=== PATIENT | female | born 1955 | race Caucasian/White ===

== ENCOUNTER → 2017-12-16 09:51 | Outpatient (CLI) | payer MEDICARE, MEDICAID, SELFPAY ==
--- NOTE | 2017-12-16 09:53 | RAD_ITS ---
STUDY: X-RAY - RIGHT KNEE REASON FOR EXAM: Female, 62 years old. Knee pain. TECHNIQUE: 4 view(s) of the knee. COMPARISON: June 29, 2016 FINDINGS: There is generalized osteopenia. 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 There are multiple intra-articular osteochondral bodies, the largest of which measures approximately 2 cm in widest diameter and is located in a popliteal cyst posteriorly. There is ossification of the distal quadriceps tendon. RAD/Knee 4 or More Views IMPRESSION: Osteopenia with tricompartmental arthrosis and multiple intra-articular osteochondral bodies as described. Electronically Signed: Tomy Wilkinson MD at 10:32 EST , Service support ,
--- NOTE | 2017-12-16 09:53 | RAD_ITS ---
STUDY: X-RAY - LEFT KNEE REASON FOR EXAM: Female, 62 years old. Pain. TECHNIQUE: 4 view(s) of the knee. COMPARISON: None. FINDINGS: There is generalized osteopenia. There is moderate to severe arthrosis of the medial, lateral and patellofemoral compartments. There are multiple small intra-articular osteochondral bodies. The soft tissue structures are unremarkable. RAD/Knee 4 or More Views IMPRESSION: Moderate to severe tricompartmental arthrosis with multiple intra-articular osteochondral bodies. Electronically Signed: Tomy Wilkinson MD at 10:30 EST , Service support ,
== END ==
PROVIDERS: Family Provider Family Medicine; PCP Family Medicine; Visit Provider Orthopaedic Surgery
DX: M25.561 Pain in right knee (principal); M25.562 Pain in left knee
CPT/HCPCS: 73564

== ENCOUNTER 2018-10-21 19:35 | Emergency (ER) | payer MEDICARE, MEDICAID, SELFPAY ==
[2018-10-21 19:41] VITALS: BP 158/69; PULSE 65; RESP 16; TEMP 36.8; O2SAT 98; BMI 36.8
[2018-10-21 20:11] LABS: Absolute Lymphocyte Count 1.17 X10^3/ul (0.83-4.51); Absolute Neutrophil Count 4.5 X10^3/uL (2.0-7.7); Basophil# 0.02 X10^3/uL; Basophil% 0.3 % (0-1); Eosinophil# 0.05 X10^3/uL; Eosinophils% 0.7 % (0-5); Hemoglobin 10.8 g/dl (12.0-15.0); Lymphocyte # 1.17 X10^3/ul (4.0); Lymphocyte % 17.5 % (19-41); Mean Corp Hgb Conc 32.7 g/gl (32-36); Mean Corpuscular Volume 88.5 fL (81-99); Mean Platelet Vol. 8.6 fl (6.2-12.0); Monocyte# 0.94 X10^3/uL; Monocyte% 14.1 % (0-10); Neutrophil # 4.49 X10^3/uL (2.7-7.7); Neutrophil % 67.3 % (47-70); Platelet Count 281 K/mm3 (150-450); RBC Distribution Width CV 14.5 % (11.6-14.6); RBC Distribution Width SD 45.6 fl (35.1-43.9); Red Blood Count 3.73 M/mm3 (4.2-5.4); White Blood Count 6.7 K/mm3 (4.4-11.0)
[2018-10-21 20:13] LABS: POSITIVE COUNT NO; POSITIVE DIFFERENTIAL NO; POSITIVE MORPHOLOGY NO
[2018-10-21 20:28] LABS: Anion Gap 9 (5-15); BUN 15 mg/dL (7-18); Calcium,Total 8.6 mg/dL (8.5-10.1); Chloride 107 mmol/L (98-107); Creatinine, Serum 1.15 mg/dL (0.55-1.02); EST Glomerular Filtration Rate 51 mL/min (>60); Est Glom Filt Rate - Afr Amer 62 mL/min (>60); Estimated Creatinine Clearance 46.23 ml/min; Glucose 116 mg/dL (74-106); Potassium 3.9 mmol/L (3.5-5.1); Pregnancy, Serum, hCG Quali. NEGATIVE Negative (0-9 Nonpreg); Sodium Level 141 mmol/L (136-145); Thyroid Stim Hormone (TSH) 4.36 uIU/mL (0.358-3.74)
[2018-10-21 20:37] VITALS: RESP 16
[2018-10-21 20:56] LABS: Amphetamine Urine VISTA NEGATIVE (<1000 ng/mL); Barbiturate Urine VISTA NEGATIVE (< 200 ng/mL); Benzodiazepine Urine VISTA NEGATIVE (< 200 ng/mL); Cocaine Urine VISTA NEGATIVE (< 300 ng/mL); Ecstacy Urine VISTA NEGATIVE (< 500 ng/mL); Methadone Urine VISTA NEGATIVE (< 300 ng/mL); PCP Urine VISTA NEGATIVE (< 25 ng/mL); THC Urine VISTA NEGATIVE (< 50 ng/mL); Vista UDS pH Range 6
--- NOTE | 2018-10-21 20:58 | ED.RN ---
SAIMA FROM CRISIS CALLED. SHE IS ON THE WAY TO SEE PT.
[2018-10-21 21:00] VITALS: RESP 18
--- NOTE | 2018-10-21 21:14 | ED.VISSUMM ---
- ER Visit Summary Date of Service: 10/21/18 Chief Complaint: Suicidal ideation History of Present Illness: The patient is a 63 F who has suicidal ideation. She is felt this way for 2-3 weeks. When asked her why she is feeling suicidal she says not sure why. She plans to overdose on Tylenol as this is the only medication she has access to. She lives in assisted living in her medications are handled by a nurse. She has a history of suicidal ideation and tried overdose in December 2015. She has been medication compliant. She does see Dr. Ramirez at the [facility]. Physical Examination: Vital signs reviewed. HEENT exam unremarkable. Heart is regular rate and rhythm without murmurs. Lungs are clear to auscultation. Abdomen is soft and nontender. Extremities reveal no edema. Skin exam normal. Neurologic exam normal. Patient voices suicidal thoughts. Her insight and judgment are poor at this time. Test Results: Hemoglobin 10.8, hematocrit 33. Creatinine 1.15. TSH 4.36. Toxicology screen alcohol are normal Emergency Department Course and Treatment: Patient is been cooperative throughout her emergency department stay. Crisis will evaluate the patient and her disposition is pending Treatment Plan: [] Disposition: Pending Impression: Suicidal ideation This note was generated with [employer] dictation software. It may contain incorrect words, spelling, and punctuation that were not noted in review of the chart prior to signing ED Disposition - Plan for ED Patient: Chief Complaint: Suicidal Referrals: Alex Self MD [Primary Care Provider] -
--- NOTE | 2018-10-21 21:32 | ED.RN ---
SAIMA FROM CRISIS IS HERE.
[2018-10-21 22:00] VITALS: BP 172/81; PULSE 64; RESP 16; O2SAT 97
[2018-10-21] MEDS: Cyanocobalamin 500 MCG Tablet 100 MCG PO (22:09)
[2018-10-21] MEDS: lamoTRIgine 100 MG Tablet 200 MG PO (22:10)
[2018-10-21] MEDS: Sertraline 100 MG Tablet PO (22:10)
[2018-10-21] MEDS: oxyCODONE 5 MG Tablet PO (22:28)
[2018-10-21 23:00] VITALS: RESP 14
[2018-10-22] VITALS (9 sets, daily range): BP systolic 143–161; BP diastolic 80–85; PULSE 65–69; RESP 16–18; O2SAT 95–96
--- NOTE | 2018-10-22 06:00 | ED.RN ---
REPORT CALLED TO [facility]. HARRIETT AQUINO VERBALIZED UNDERSTANDING
[2018-10-22] MEDS: oxyCODONE 5 MG Tablet PO (06:15)
--- NOTE | 2018-10-22 06:38 | ED.RN ---
ATTEMPTED TO CALL REPORT TO [facility]. AFTER BEING CONNECTED TO ANOTHER LINE VIA INTAKE, PHONE RANG CONTINUOUSLY AND NO ONE EVER PICKED UP
--- NOTE | 2018-10-22 07:38 | ED.RN ---
REPORT CALLED TO MEAGAN AQUINO AT [facility].
== END 2018-10-22 08:07 ==
PROVIDERS: Emergency Provider Emergency Medicine; Family Provider Family Medicine; PCP Family Medicine
DX: R45.851 Suicidal ideations (principal); J44.9 Chronic obstructive pulmonary disease, unspecified; F31.9 Bipolar disorder, unspecified; F25.9 Schizoaffective disorder, unspecified; I10 Essential (primary) hypertension; E78.5 Hyperlipidemia, unspecified; Z79.2 Long term (current) use of antibiotics; Z79.51 Long term (current) use of inhaled steroids; Z79.891 Long term (current) use of opiate analgesic; Z79.899 Other long term (current) drug therapy
CPT/HCPCS: 80048; 80307; 80320; 84443; 84703; 85025; 99285; G0480

== ENCOUNTER 2018-12-02 16:21 | Emergency (ER) | payer MEDICARE, MEDICAID, SELFPAY ==
[2018-12-01 08:07] VITALS: BMI 36.0
[2018-12-02 16:22] VITALS: BP 155/81; PULSE 76; RESP 18; TEMP 36.6; O2SAT 98; BMI 36.0
--- NOTE | 2018-12-02 16:34 | CT_ITS ---
STUDY: CT BRAIN WITHOUT CONTRAST REASON FOR EXAM: Female, 63 years old. Headaches RADIATION DOSAGE (If Supplied By Facility): CTDIvol = ( 44.99 ) mGy, DLP = ( 762.36 ) mGycm TECHNIQUE: Transaxial CT imaging of the brain was performed without administration of intravenous contrast material. Individualized dose optimization techniques were used for this CT. COMPARISON: February 05, 2009 FINDINGS: Normal soft tissue structures. Normal calvarium. Mild atrophy and periventricular white matter ischemic changes.. Normal basal ganglia and thalami. Normal brainstem. Normal cerebellum. Mild partial empty sella deformity of uncertain significance. There is no intracranial hemorrhage. There are no findings of an acute ischemic infarction. Normal visualized paranasal sinuses. CT/Brain/Head without Contrast IMPRESSION: Mild atrophy and periventricular white matter ischemic changes. No evidence for obstructive hydrocephalus mass or acute bleed Electronically Signed: Eugenio Abarca MD at 16:57 EST , Service support ,
--- NOTE | 2018-12-02 17:30 | CM.ED ---
Social Work Assessment Reason for Consult: Mental Health/Medication Adjustments Informant: guest relations executiveKajal AQUINO Information obtained from: Pt who is alert and oriented upon this senior mortgage underwriter's entry into room and sitting up in bed in no apparent distress. Pt is able to participate in assessment. Living Arrangements: Pt reports to live in [facility] and has for the past 9 years. Supports: Pt identifies her friends, Patty (MICHELLE) and Gloria, as her primary supports. Requests to contact Patyt upon completion of assessment. Stressors: Pt reports that her brother in January of 2018. Emotional support provided. Pt states she was not as close with him as she would have liked to have been as they both grew up in foster care and he lived in [place]. Mental Health Hx: Pt reports hx of bipolar, major depression and anxiety. She is established with Dr. Ramirez at the counseling center and see a counselor 1x/week at [facility]. States that she was in [facility] in October and they took her off of her Geodon and increased he Zoloft dosing. States that Dr. Ramirez told her if this did not work they would replace the Geodon. Discussed with the pt that staff was trying to contact the psychiatrist as no one here can adjust her psychiatric medications. She last saw the psychiatrist on Tuesday 11/28 and her next appointment is on Wednesday 12/06. States, I can not continue like this until then. Again explain that psychiatric medications would need to be adjusted by her psychiatrist. Inquire if she is having thoughts of killing herself. Pt pauses for an extended time and states, if you don't do something. Request for her to elaborate how she would plan to complete that task and the pt states, I have limited resources, I could not. Substance Abuse Hx: Pt denies substance abuse. ASSESSMENT: At this time pt does not present with suicide risk. Pt expresses frustration with change in medication and states thatsince Wednesday her head feels like it could explode. Denies that it is a headache. States that she was taken off of Celexa on Wednesday and the psychiatrist lowered her Zoloft to 200 mg and this is when the explosion feeling began. Nursing spoke with crisis who states that the pt does not meet criteria for placement. This social work manager agrees and anticipates discharge back to [facility]. Intervention(s): Suicide risk assessment completed and pt does not meet criteria for placement. Does not have a plan or means to complete this act and can return to [facility] until her appointment with Dr. Ramirez on Wednesday 12/06. PLAN: Await return phone call from [facility] to see if meds can be adjusted prior to 12/06 appointment. Anticipate return to [facility]. Anastasiya Hernandez, MARIAN, PLASTIC FINISHER
[2018-12-02 18:23] VITALS: PULSE 78; RESP 16; O2SAT 98
--- NOTE | 2018-12-02 18:33 | ED.VISSUMM ---
- ER Visit Summary Date of Service: 12/02/18 Chief Complaint: Headache History of Present Illness: The patient is a 63 F patient sent from [facility] for mental health evaluation. Patient reports over the last 4 days feel increased pressure in her head states feels like it is going to explode and back fire.. Reports having a fall on the of last month along with the . Reports in the seventh was sent for CT scan due to her injury. Denies any visual changes, nausea or vomiting. No neck or back pain. History of bipolar and fibromyalgia and cerebral palsy. Reports and records reviewed was admitted to [facility] this past October for suicidal ideations. Medications were adjusted. States she was being transitioned from Zoloft to Celexa however did not tolerate this. On the of last month, transition back to Zoloft currently taking 200 mg daily. This was 4 days ago, she reports since the Zoloft regimen was having head symptoms. She denies any suicidal homicidal regions. Records and reports from facility reports there concerns for increased hever. They reported that there did not have capabilities of managing the patient. Physical Examination: General: Alert and oriented ?3, no acute distress HEENT: Normocephalic, atraumatic. Moist mucosa membranes Neck: supple, nontender. No meningismus Cardiovascular: Regular rate and rhythm, no murmurs Respiratory: Normal breath sounds, symmetric, no distress Abdomen: Soft, nontender, nondistended Extremities: Nontender, no edema, pulses intact ?4. Walking splints on lower extremities bilaterally. Neuro: no focal neurological deficits. Cranial nerves II through XII intact. Psych: No suicidal or homicidal ideation. Cooperative. Test Results: CT head: No acute process Emergency Department Course and Treatment: Patient not suicidal.no focal neurological deficits vital signs stable. Main complaints head pressure since medications were changed. Head CT negative. Reported concerns that facility could not take care of the patient social work was involved, reports they should be able to take care of the patient. We had mental health crisis see the patient also clearing the patient psychologically. She is medically cleared. She requested ibuprofen which was given to her. She has an appointment with Dr Ramirez on Wednesday for evaluation of her medicines. Treatment Plan: [] Disposition: Discharge Impression: Cephalgia This note was generated with [employer] software. It may contain incorrect words, spelling, and punctuation that were not noted in review of the chart prior to signing ED Disposition - Plan for ED Patient: Disposition: Home or Assisted Living Diagnosis: Cephalgia Instructions: ED Cephalgia Unspecified Referrals: Alex Self MD [Primary Care Provider] - Milagro Ramirez MD [NON-STAFF] - Keep Tawny appointment
--- NOTE | 2018-12-02 18:36 | ED.DCSUM_ITS ---
- ER Visit Summary Date of Service: 12/02/18 Chief Complaint: Headache History of Present Illness: The patient is a 63 F patient sent from [facility] for mental health evaluation. Patient reports over the last 4 days feel increased pressure in her head states feels like it is going to explode and back fire.. Reports having a fall on the of last month along with the . Reports in the seventh was sent for CT scan due to her injury. Denies any visual changes, nausea or vomiting. No neck or back pain. History of bipolar and fibromyalgia and cerebral palsy. Reports and records reviewed was admitted to [facility] this past October for suicidal ideations. Medications were adjusted. States she was being transitioned from Zoloft to Celexa however did not tolerate this. On the of last month, transition back to Zoloft currently taking 200 mg daily. This was 4 days ago, she reports since the Zoloft regimen was having head symptoms. She denies any suicidal homicidal regions. Records and reports from facility reports there concerns for increased hever. They reported that there did not have capabilities of managing the patient. Physical Examination: General: Alert and oriented ?3, no acute distress HEENT: Normocephalic, atraumatic. Moist mucosa membranes Neck: supple, nontender. No meningismus Cardiovascular: Regular rate and rhythm, no murmurs Respiratory: Normal breath sounds, symmetric, no distress Abdomen: Soft, nontender, nondistended Extremities: Nontender, no edema, pulses intact ?4. Walking splints on lower extremities bilaterally. Neuro: no focal neurological deficits. Cranial nerves II through XII intact. Psych: No suicidal or homicidal ideation. Cooperative. Test Results: CT head: No acute process Emergency Department Course and Treatment: Patient not suicidal.no focal neurological deficits vital signs stable. Main complaints head pressure since medications were changed. Head CT negative. Reported concerns that facility could not take care of the patient social work was involved, reports they should be able to take care of the patient. We had mental health crisis see the patient also clearing the patient psychologically. She is medically cleared. She requested ibuprofen which was given to her. She has an appointment with Dr Ramirez on Wednesday for evaluation of her medicines. Treatment Plan: [] Disposition: Discharge Impression: Cephalgia This note was generated with [employer] software. It may contain incorrect words, spelling, and punctuation that were not noted in review of the chart prior to signing ED Disposition - Plan for ED Patient: Disposition: Home or Assisted Living Diagnosis: Cephalgia Instructions: ED Cephalgia Unspecified Referrals: Alex Self MD [Primary Care Provider] - Milagro Ramirez MD [NON-STAFF] - Keep Tawny appointment
--- NOTE | 2018-12-02 19:07 | ED.RN ---
ELIAN FROM [facility] IS HERE TO SEE THIS PT.
[2018-12-02] MEDS: Ibuprofen 600 MG Tablet PO (19:53)
--- NOTE | 2018-12-02 19:53 | ED.RN ---
ATTEMPTED TO CALL REPORT TO RAYMUNDO STERN. NO ANSWER. [phone]
[2018-12-02 19:54] VITALS: BP 137/65; PULSE 76; RESP 18; O2SAT 98
--- NOTE | 2018-12-02 20:02 | ED.RN ---
REPORT CALLED TO RAYMUNDO STERN
== END 2018-12-02 20:02 | disposition home or self-care (01) ==
PROVIDERS: Emergency Provider Emergency Medicine; Family Provider Family Medicine; PCP Family Medicine
DX: R51 Headache (principal); F31.9 Bipolar disorder, unspecified; G80.9 Cerebral palsy, unspecified; M79.7 Fibromyalgia; I10 Essential (primary) hypertension; E03.9 Hypothyroidism, unspecified; Z79.82 Long term (current) use of aspirin; Z79.899 Other long term (current) drug therapy
CPT/HCPCS: 70450; 99284; J7030

== ENCOUNTER 2019-06-27 09:54 | Day surgery (SDC) | payer MEDICARE, MEDICAID, SELFPAY ==
[2019-06-19 08:45] VITALS: BMI 36.0
--- NOTE | 2019-06-23 10:46 | EKG12_ITS ---
Test Reason : PRE-OP Blood Pressure : / mmHG Vent. Rate : 063 BPM Atrial Rate : 063 BPM P-R Int : 134 ms QRS Dur : 078 ms QT Int : 396 ms P-R-T Axes : 013 048 052 degrees QTc Int : 405 ms Normal sinus rhythm Normal ECG Confirmed by YASMANY QUESADA, IRIS ([id number]), dictionary editor ALBER MIRAMONTES ([id number]) on 06/26/2019 12:00:45 PM Referred By: Justice Montelongo Confirmed By:IRIS JADE MD
[2019-06-23 11:03] LABS: Hematocrit 39.8 % (37-47); Hemoglobin 13.5 g/dL (12.0-15.0); Mean Corp Hgb Conc 33.9 g/dL (32-36); Mean Corpuscular Hgb 32.6 pg (27.0-32.0); Mean Corpuscular Volume 96.1 fL (81-99); Mean Platelet Vol. 9.3 fl (6.2-12.0); Platelet Count 242 K/mm3 (150-450); RBC Distribution Width CV 11.9 % (11.6-14.6); RBC Distribution Width SD 41.9 fl (35.1-43.9); Red Blood Count 4.14 M/mm3 (4.2-5.4); White Blood Count 6.7 K/mm3 (4.4-11.0)
[2019-06-23 11:10] LABS: International Normalized Ratio 1.1; Partial Thromboplast Time 31.4 Seconds (24.1-36.2); Prothrombin Time (Protime)PT. 13.6 SECONDS (11.7-14.9)
[2019-06-23 11:47] LABS: AST(SGOT) 19 U/L (15-37); Alanine Aminotransfer ALT/SGPT 29 U/L (13-56); Albumin, Serum 3.1 g/dL (3.2-5.0); Alkaline Phosphatase 149 U/L (45-117); Anion Gap 5 (5-15); BUN 9 mg/dL (7-18); BUN/Creat Ratio 8.8 RATIO (10-20); Bilirubin, Direct 0.13 mg/dL (0.00-0.30); Calcium,Total 8.9 mg/dL (8.5-10.1); Chloride 107 mmol/L (98-107); Creatinine, Serum 1.02 mg/dL (0.55-1.02); EST Glomerular Filtration Rate 58 mL/min (>60); Est Glom Filt Rate - Afr Amer 71 mL/min (>60); Globulin 3.2 g/dL (2.2-4.2); Glucose 97 mg/dL (74-106); Potassium 3.9 mmol/L (3.5-5.1); Protein, Total 6.3 g/dL (6.4-8.2); Sodium Level 140 mmol/L (136-145); Thyroid Stim Hormone (TSH) 5.32 uIU/mL (0.358-3.74)
[2019-06-27] VITALS (9 sets, daily range): BP systolic 118–180; BP diastolic 68–117; PULSE 71–96; RESP 16–24; TEMP 36.1–37; O2SAT 96–100; BMI 29.6
[2019-06-27] MEDS: Lactated Ringers 1,000 ML 75 ML IV (10:42)
--- NOTE | 2019-06-27 10:54 | PCM.HP.BLA ---
History and Physical Date of Admission: 06/27/19 Intake Vital Signs 06/19/19 Body Mass Index (BMI) 36.0 Intake Visit Reasons: Bilat Shoulders Chief Complaint: Right knee pain Allergies lithium Allergy (Mild, Verified 10/21/18 19:49) Vomiting aspartame Allergy (Verified 10/21/18 19:49) Itching ciclesonide [From Alvesco] Allergy (Verified 10/21/18 19:49) Shortness of breath diphenhydramine HCl [From Benadryl] Allergy (Verified 10/21/18 19:49) Rash imipramine Allergy (Verified 10/21/18 19:49) Other levofloxacin [From Levaquin] Allergy (Verified 10/21/18 19:49) Itching onabotulinumtoxinA [From Botox] Allergy (Verified 10/21/18 19:49) Itching Penicillins Allergy (Verified 10/21/18 19:49) Rash topiramate [From Topamax] Allergy (Verified 10/21/18 19:49) Other Medications Esomeprazole Mag Trihydrate [Nexium] 40 mg PO DAILY 01/03/16 [History Confirmed 06/19/19] Fluticasone 0.05% [Flonase Nasal [place]] 2 spray NASAL DAILY 01/03/16 [History Confirmed 06/19/19] Tizanidine HCl [Zanaflex] 4 mg PO BID 01/03/16 [History Confirmed 06/19/19] aspirin 81 mg chewable tablet 81 mg PO DAILY 12/16/17 [History Confirmed 06/19/19] fluticasone furoate 200 mcg-vilanterol 25 mcg/dose inhalation powder 1 inh INHALATION DAILY 12/16/17 [History Confirmed 06/19/19] naproxen 500 mg tablet 500 mg PO BID 12/16/17 [History Confirmed 06/19/19] Levothyroxine Sodium [Synthroid] 200 mcg PO DAILY 10/21/18 [History Confirmed 06/19/19] Lisinopril 5 mg PO DAILY 10/21/18 [History Confirmed 06/19/19] Metamucil 2 cap PO BID 10/21/18 [History Confirmed 06/19/19] Cyanocobalamin (Vitamin B-12) [Vitamin B-12] 100 mg PO QHS 12/02/18 [History Confirmed 06/19/19] Multivitamin [One Daily Multivitamin] 1 ea PO DAILY 12/02/18 [History Confirmed 06/19/19] buprenorphine 20 mcg/hour weekly transdermal patch 1 patch TRANSDERMAL QWEEK 06/19/19 [History Confirmed 06/19/19] tramadol 50 mg tablet 50 mg PO BID PRN 06/19/19 [History Confirmed 06/19/19] PFSH Medical History (Updated 12/03/18 @ 00:00 by Linnea Becker) Bipolar 1 disorder (Chronic) Cerebral palsy (Chronic) Fibromyalgia (Chronic) HBP (high blood pressure) (Chronic) Hypothyroid (Chronic) Social History (Updated 06/19/19 @ 09:41 by Justice Montelongo DO) Smoking Status: Never smoker HPI Bilat Shoulders: Details: Parts of this documentation were recorded by a scribe, this documentation accurately reflects the service provided and the decisions made by Justice ken DO 06/19/19 0751. STEVE FAGAN is a 64 year old F here today for BL shoulder pain. Patient had BL subacromial injections in 03/2019 and states these injections where effective for about 2 weeks. Denies numbness, tingling or other associated symptoms. Patient has generalized BL shoulders and states the right is worse than the left. Is still in the process of moving to [place]. Denies any PT for the shoulders. Has pain with any ROM and ADLs. Does not recall any weakness. ROS Const Reports system reviewed and no additional complaints, except as docu Eyes Reports system reviewed and no additional complaints, except as docu ENT Reports system reviewed and no additional complaints, except as docu Card Reports system reviewed and no additional complaints, except as docu Resp Reports system reviewed and no additional complaints, except as docu GI Reports system reviewed and no additional complaints, except as docu Musc Reports system reviewed and no additional complaints, except as docu, Reports as per HPI Skin/Breast Reports system reviewed and no additional complaints, except as docu Neuro Yes system reviewed and no additional complaints, except as docu Psych Reports system reviewed and no additional complaints, except as docu Endo Reports system reviewed and no additional complaints, except as docu Kendrick/Lymph Reports system reviewed and no additional complaints, except as docu Aller/Immun Reports system reviewed and no additional complaints, except as docu Ortho Exam Right Shoulder Skin/Wound: No ecchymosis, No erythema, No swelling Testing: Positive Hawkin's, TTP Biceps and AROM-Forward Elevation 0-180; negative TTP AC Joint SHOULDER: 5/5 strength ]pain with resisted abduction Left Shoulder Testing: Yes Hawkin's, Yes TTP Biceps, No TTP AC Joint, Yes AROM-Forward Elevation 0-180 SHOULDER: 5/5 pain with abduction Assessment & Plan Problems 1. Biceps tendonitis of both shoulders M75.21; M75.22 2. Incomplete tear of right rotator cuff, unspecified whether traumatic M75.111 3. Impingement syndrome of right shoulder M75.41 Plan Educated that her biceps tear has more than likely worsened along with possibility of increased rotator cuff tearing. Educated that her options would be a right shoulder arthroscopic subacromial decompression, eval of RTC with possible repair and biceps tenotomy. Reviewed the pre-operative plans with the patient. Risks and benefits of the procedure were fully explained, including but not limited to infection, neurovascular injury, continued pain, arthritis, stiffness, need for further surgery, re-injury, DVT, PE, general risks of anesthesia, and loss of limb or life. The patient understands all the risks. Educated that this may be 3 months recovery period. Patient is supposed to be moving to [place] and wishes to think about surgery. Patient signed consent this day but wishes to think about surgical option further. Follow up 2 weeks post op if she chooses to have surgery or sooner if pain, swelling, numbness or associated symptoms, or concerns develop. All questions answered. Patient in agreement of plan. Coding Level of Care Code Off vis,new,level 3 Diagnoses Biceps tendonitis of both shoulders M75.21; M75.22 Incomplete tear of right rotator cuff, unspecified whether traumatic M75.111 ??Rotator cuff tear extent: incomplete ??Rotator cuff tear trauma status: unspecified whether traumatic Impingement syndrome of right shoulder M75.41 I have re-examined the patient. There are no clinical changes since date of exam
[2019-06-27] MEDS: Cefazolin 2 GM in 0.9% Normal Saline 100 ML IV (12:51)
[2019-06-27] MEDS: Epinephrine (1 mg/ml) 1 MG/ML VIAL (13:50)
[2019-06-27] MEDS: Bupiv/Epi 0.5% Mpf 30 ML Vial (14:00)
[2019-06-27] MEDS: Bupivacaine Mpf 0.5% 30 ML VIAL (14:10)
[2019-06-27] MEDS: Morphine 4 MG/ML Syringe (14:10)
[2019-06-27] MEDS: MethylPREDNISolone Acetate 80 MG/ML Vial (14:10)
--- NOTE | 2019-06-27 14:19 | PCM.DC.ORTHO ---
Discharge Diet: No Restrictions Call your doctor if you observe: Fever of 101 or Higher, Shortness of breath, Chest pain Additional Instructions: Leave the dressing on and intact for 48 hours. Then may remove and shower with warm water and antibacterial soap. But do not submerge in tub for 3 weeks. ice shoulder 15 min on and 15 mins off next 72 hrs. May remove sling for elbow range and shoulder range of motion and pendulum exercises may preform active range of motion of shoulder when pain allows. discontinue sling over the course to the week as pain allow. DC completely by 1 week. Do not lift push or pull greater then 5 lbs with operative extremity. Encourage finger and wrist range of motion. If any concerns call Dr. Montelongo's office. Allergies/Adverse Reactions: Allergies lithium Allergy (Mild, Verified 06/27/19 10:11) Vomiting aspartame Allergy (Verified 06/27/19 10:11) Itching ciclesonide [From Alvesco] Allergy (Verified 06/27/19 10:11) Shortness of breath diphenhydramine HCl [From Benadryl] Allergy (Verified 06/27/19 10:11) Rash imipramine Allergy (Verified 06/27/19 10:11) Other levofloxacin [From Levaquin] Allergy (Verified 06/27/19 10:11) Itching onabotulinumtoxinA [From Botox] Allergy (Verified 06/27/19 10:11) Itching Penicillins Allergy (Verified 06/27/19 10:11) Rash topiramate [From Topamax] Allergy (Verified 06/27/19 10:11) Other sertraline [From Zoloft] Adverse Reaction (Verified 06/27/19 10:11) serotoin syndrome Medications to take at Discharge Esomeprazole Mag Trihydrate [Nexium] 40 mg PO DAILY 01/03/16 Fluticasone 0.05% [Flonase Nasal [place]] 2 spray NASAL DAILY 01/03/16 Tizanidine HCl [Zanaflex] 4 mg PO BID 01/03/16 aspirin 81 mg chewable tablet 81 mg PO DAILY 12/16/17 naproxen 500 mg tablet 500 mg PO BID 12/16/17 Levothyroxine Sodium [Synthroid] 100 mcg PO DAILY 10/21/18 Lisinopril 5 mg PO DAILY 10/21/18 Metamucil 2 cap PO BID 10/21/18 Cyanocobalamin (Vitamin B-12) [Vitamin B-12] 100 mg PO QHS 12/02/18 Multivitamin [One Daily Multivitamin] 1 ea PO DAILY 12/02/18 buprenorphine 20 mcg/hour weekly transdermal patch 1 patch TRANSDERMAL QWEEK 06/19/19 tramadol 50 mg tablet 100 mg PO TID PRN 06/19/19 Albuterol IH (ProAir) [Proair Hfa (SP)Vent Pts] 1 - 2 puff INHALATION Q6H PRN PRN 06/22/19 Lorazepam [Ativan] 0.5 mg PO TID PRN 06/22/19 Polyethylene Glycol 3350 [Miralax] 17 gm PO DAILY 06/22/19 Hydrocodone Bitart/Apap 5-325 [[place] 5MG-325MG] 1 tablet PO Q6H PRN PRN 5 Days #28 tablet 06/27/19 The following prescriptions were given: Hydrocodone Bitart/Apap 5-325 [[place] 5MG-325MG] 1 tablet PO Q6H PRN PRN 5 Days #28 tablet PRN Reason: Pain Transmission Status: Sent to [facility] Orders to be completed after discharge: 12 Lead EKG [[facility]] Time Frame: 06/22/19, Facility: [facility], Location: Cardiovascular Services Basic Metabolic Profile (BMP) Time Frame: 06/22/19, Facility: [facility], Location: Laboratory CBC-Complete Blood Cnt No Diff Time Frame: 06/22/19, Facility: [facility], Location: Laboratory Liver Profile Time Frame: 06/22/19, Facility: [facility], Location: Laboratory Partial Thromboplast Time Time Frame: 06/22/19, Facility: [facility], Location: Laboratory Prothrombin Time w/INR Time Frame: 06/22/19, Facility: [facility], Location: Laboratory Thyroid Stim Hormone (TSH) Time Frame: 06/22/19, Facility: [facility], Location: Laboratory Primary Care Physician: Alex Self MD [Primary Care Provider] - Test Results: Test results from this visit will be discussed in further detail at your follow-up appointment, if applicable.
--- NOTE | 2019-06-27 14:23 | OP.PCM_ITS ---
Report of Operation Date of Procedure: 06/27/19 Description of Surgical Findings:: Preoperative diagnosis: Right shoulder impingement, biceps tendonopathy Postoperative diagnosis: Right shoulder impingement , biceps tendinopathy, degenerative labral tearing, partial tearing subscapularis and supraspinatus. Procedure: Arthroscopic labral debridement biceps tenotomy rotator cuff debridement subacromial decompression acromioplasty Anesthesia: General with interscalane block; EBL: 10 cc Complications: none Indication for procedure: 64-year-old female continued right shoulder pain despite conservative treatment with exam consistent with impingement and biceps tendinopathy and has severe thoracic kyphosis likely additional component of postural impingement to have an MRI in 2017 which was reviewed showing a partial-thickness tear spinatus. patient did wish to proceed with an arthroscopic subacromial decompression and surgery as indicated. risks benefits and alternatives of the procedure were reviewed including risk of bleeding infection nerve artery tissue damage need for further surgery continued pain postoperative stiffness and need for postoperative physical therapy and continued pain. Procedure : Patient was met in the preoperative holding area the operative extremity was identified by both the patient and the physician and was marked. Patient was met by anesthesia and brought back to the operating room on a wheeled cart. She was transferred to the operating table in the supine posi tion. Anesthesia was started. Patient was then positioned in the beachchair configuration. Bony prominences were well-padded. The patient was prepped and draped in the usual sterile fashion. A timeout was called to ensure the proper patient procedure and extremity were being contemplated. Anatomic landmarks were palpated and marked with a marking pen. A 0.25% Marcaine with epinephrine was injected into the planned portal sites. An 11 blade scalpel was used to make a stab incision in the posterior lateral portal. Arthroscope was inserted into the glenohumeral space with ease. Inflow and outflow tubes were attached and arthroscopic visualization began. An anterior portal was established with an 18-gauge spinal needle. Immediately there was noted to be degenerative labral tearing from the 10:00 to 3 o'clock position there was noted to be lipstick lesion of the biceps the use of an ArthroCare biceps tenotomy was performed and a shaver was used to debride the labral tissue the rotator cuff was evaluated from the undersurface there was small articular sided tearing of the anterior leading edge of the supraspinatus which was debrided as well as the superior border of the subscapularis which was debrided however no full- thickness tear was noted of either and the cuff was evaluated with probe it was not felt that 50% of the cuff was involved. The arthroscope was then reposi tioned into the subacromial space there was significant bursal thickening of acromial decompression of bursal tissue as well as acromioplasty were performed there is large anterior acromial spurring which was removed bursal side of the cuff was evaluated and there was no full-thickness tear seen or palpated with probe probe the wound was thoroughly irrigated through the scope followed by a subacromial injection with 40 mg Depo-Medrol 4 mg of morphine and 8 cc of 0.5% Marcaine plain. Suture portals were closed with 3-0 nylon arthroscopic stitches followed by Xeroform 4 x 4 ABD and a Ioban dressing. A regular sling was placed. Anesthesia was reversed and patient tolerated the procedure well was and was transferred to the PACU all counts were correct patient will follow-up in the office in 2 weeks patient may begin active range of motion immediately
== END 2019-06-27 17:04 | disposition home or self-care (01) ==
LOC: SDC 09:55 → AC 09:55
PROVIDERS: Family Provider Family Medicine; PCP Family Medicine; Referring Provider Orthopaedic Surgery; Visit Provider Orthopaedic Surgery
PROC: (CPT 29827; principal; 2019-06-27 11:40)
DX: M75.41 Impingement syndrome of right shoulder (principal); M75.21 Bicipital tendinitis, right shoulder; M75.111 Incomplete rotator cuff tear or rupture of right shoulder, not specified as traumatic; S43.491A Other sprain of right shoulder joint, initial encounter; F31.9 Bipolar disorder, unspecified; M79.7 Fibromyalgia; I10 Essential (primary) hypertension; E03.9 Hypothyroidism, unspecified; G80.9 Cerebral palsy, unspecified; K21.9 Gastro-esophageal reflux disease without esophagitis; E78.00 Pure hypercholesterolemia, unspecified; F41.9 Anxiety disorder, unspecified; J45.909 Unspecified asthma, uncomplicated; E66.01 Morbid (severe) obesity due to excess calories; Z68.36 Body mass index [BMI] 36.0-36.9, adult; Z86.73 Personal history of transient ischemic attack (TIA), and cerebral infarction without residual deficits; Z86.2 Personal history of diseases of the blood and blood-forming organs and certain disorders involving the immune mechanism; Z79.82 Long term (current) use of aspirin; Z79.899 Other long term (current) drug therapy; Z79.51 Long term (current) use of inhaled steroids; Z79.891 Long term (current) use of opiate analgesic; X58.XXXA Exposure to other specified factors, initial encounter; Y93.89 Activity, other specified; Y92.89 Other specified places as the place of occurrence of the external cause; Y99.8 Other external cause status
CPT/HCPCS: 01630; 29822; 29826; 29828; 80048; 80076; 84443; 85027; 85610; 85730; 93005; J7120; J2405

== ENCOUNTER → 2019-07-10 | Outpatient (CLI) | payer MEDICARE, MEDICAID, SELFPAY ==
[2019-07-10 10:06] VITALS: BMI 29.6
--- NOTE | 2019-07-10 10:22 | RAD_ITS ---
HISTORY: SHOULDER PAIN Exam:Left Shoulder COMPARISON: None FINDINGS: # of images incl. paperwork: 4 XR Shoulder Min 2 Views: The humeral head is well-positioned within the glenoid fossa. No fracture or subluxation. The acromioclavicular joint is normal. The adjacent chest is unremarkable. RAD/Shoulder min 2 Views IMPRESSION: Normal left shoulder. at 0606 Reported and signed by: Tripp Card MD Electronically Signed: Tripp Card MD at 6:05 EDT Tel , Service support ,
== END | disposition home or self-care (01) ==
LOC: HPRAD 10:21
PROVIDERS: Family Provider Family Medicine; PCP Family Medicine; Referring Provider Orthopaedic Surgery; Visit Provider Orthopaedic Surgery
DX: M25.512 Pain in left shoulder (principal)
CPT/HCPCS: 73030

== ENCOUNTER → 2020-04-01 | Outpatient (CLI) | payer MEDICARE, MEDICAID, SELFPAY ==
[2019-08-02 07:58] VITALS: BMI 29.6
--- NOTE | 2020-04-01 14:18 | RAD_ITS ---
STUDY: X-RAY - RIGHT KNEE REASON FOR EXAM: Female, 65 years old. CHRONIC PAIN TECHNIQUE: 4 view(s) of the knee. COMPARISON: None. FINDINGS: There is demineralization of the visualized distal femur. There is demineralization of the tibia and fibula. Normal proximal tibiofibular articulation. There is severe degenerative arthrosis of the medial femorotibial compartment with severe joint space narrowing. There is severe degenerative arthrosis of the lateral femorotibial compartment with severe joint space narrowing. There is severe degenerative arthrosis of the patellofemoral articulation. Degenerative spurs noted in the distal femur, proximal tibia and patella The soft tissue structures are unremarkable. RAD/Knee 4 or More Views IMPRESSION: Degenerative arthrosis. Electronically Signed: Francisco Thompson MD at 15:20 EDT , Service support ,
--- NOTE | 2020-04-01 14:18 | RAD_ITS ---
STUDY: X-RAY - LEFT KNEE REASON FOR EXAM: Female, 65 years old. CHRONIC PAIN TECHNIQUE: 4 view(s) of the knee. COMPARISON: None. FINDINGS: There is demineralization of the visualized distal femur. There is demineralization of the tibia and fibula. Normal proximal tibiofibular articulation. There is severe degenerative arthrosis of the medial femorotibial compartment with severe joint space narrowing. There is severe degenerative arthrosis of the lateral femorotibial compartment with severe joint space narrowing. There is severe degenerative arthrosis of the patellofemoral articulation. Degenerative spurs noted in the distal femur, proximal tibia, and posterior patella The soft tissue structures are unremarkable. RAD/Knee 4 or More Views IMPRESSION: Degenerative arthrosis. Electronically Signed: Francisco Thompson MD at 15:17 EDT , Service support ,
== END | disposition home or self-care (01) ==
LOC: HPRAD 14:18
PROVIDERS: PCP Family Medicine; Referring Provider Orthopaedic Surgery; Visit Provider Orthopaedic Surgery
DX: M25.561 Pain in right knee (principal); M25.562 Pain in left knee
CPT/HCPCS: 73564

== ENCOUNTER → 2020-04-11 | Outpatient (CLI) | payer MEDICARE, MEDICAID, SELFPAY ==
[2020-04-01 14:49] VITALS: BMI 29.6
--- NOTE | 2020-04-11 08:08 | CT_ITS ---
STUDY: CT SCAN LOWER EXTREMITY LEFT REASON FOR EXAM: Female, 65 years old. KEVON LEFT KNEE RADIATION DOSAGE (If Supplied By Facility): CTDIvol = ( 20.10 ) mGy, DLP = ( 1195.63 ) mGycm. Individualized dose optimization techniques were used for this CT.? TECHNIQUE: Multiple axial tomographic images of the left hip joint, knee joint and ankle joint were obtained. Coronal and sagittal reconstruction was obtained as well. COMPARISON: None. FINDINGS: There are degenerative changes of the left sacroiliac joint. Mild degree of joint space narrowing of the left hip joint. Moderate degree of the joint space narrowing involving the medial and lateral compartments of the knee joint as well as the patellofemoral joint. Degenerative spurring is seen along the medial femoral condyle as well as the lateral femoral condyle and lateral tibial plateau. Large degenerative spur is seen along the anterior superior aspect of the tibial plateau as well as the anterior aspect of the distal femur and patella. There is evidence of a chondroid calcification or new bone formation within the posterior popliteal space suggestive of osteochondromatosis. Vascular calcification. The ankle joint is unremarkable. CT/Extremity Lower without Contra IMPRESSION: Degenerative changes involving the knee joint as described. Electronically Signed: Guerrero Hooper, at 9:14 EDT , Service support ,
== END | disposition home or self-care (01) ==
LOC: CT 08:08
PROVIDERS: PCP Family Medicine; Referring Provider Orthopaedic Surgery; Visit Provider Orthopaedic Surgery
DX: M17.12 Unilateral primary osteoarthritis, left knee (principal)
CPT/HCPCS: 73700

== ENCOUNTER 2020-04-30 14:54 | Observation (INO) | payer MEDICARE, MEDICAID, SELFPAY ==
[2020-04-01 14:49] VITALS: BMI 29.6
[2020-04-19 09:23] VITALS: BMI 29.6
--- NOTE | 2020-04-19 10:51 | EKG12_ITS ---
Test Reason : PRE OP Blood Pressure : / mmHG Vent. Rate : 062 BPM Atrial Rate : 062 BPM P-R Int : 156 ms QRS Dur : 070 ms QT Int : 402 ms P-R-T Axes : 023 043 044 degrees QTc Int : 408 ms Normal sinus rhythm Normal ECG Confirmed by ALONSO QUESADA, JOVANNY ([id number]), supervising editor news reel ALBER MIRAMONTES ([id number]) on 04/22/2020 9:47:19 AM Referred By: Justice Montelongo Confirmed By:SASCHA GUPTA MD
[2020-04-19 11:17] LABS: Absolute Lymphocyte Count 1.46 X10^3/uL (0.83-4.51); Absolute Neutrophil Count 2.1 X10^3/uL (2.0-7.7); Basophil# 0.03 X10^3/uL; Basophil% 0.7 % (0-1); Eosinophil# 0.21 X10^3/uL; Eosinophils% 4.9 % (0-5); Hematocrit 36.6 % (37-47); Hemoglobin 12.1 g/dL (12.0-15.0); Lymphocyte # 1.46 X10^3/ul (4.0); Lymphocyte % 33.9 % (19-41); Mean Corp Hgb Conc 33.1 g/dL (32-36); Mean Corpuscular Hgb 29.5 pg (27.0-32.0); Mean Corpuscular Volume 89.3 fL (81-99); Mean Platelet Vol. 9.4 fl (6.2-12.0); Monocyte# 0.55 X10^3/uL; Monocyte% 12.8 % (0-10); NRBC Flagged by Analyzer 0 % (0-5); Neutrophil # 2.06 X10^3/uL (2.7-7.7); Neutrophil % 47.7 % (47-70); Platelet Count 208 K/mm3 (150-450); RBC Distribution Width CV 12.6 % (11.6-14.6); RBC Distribution Width SD 41.3 fl (35.1-43.9); White Blood Count 4.3 K/mm3 (4.4-11.0)
[2020-04-19 11:26] LABS: International Normalized Ratio 1.1; Prothrombin Time (Protime)PT. 13.5 SECONDS (11.7-14.9)
[2020-04-19 11:27] LABS: Partial Thromboplast Time 35.3 Seconds (24.1-36.2)
[2020-04-19 11:59] LABS: Anion Gap 5 (5-15); BUN 13 mg/dL (7-18); BUN/Creat Ratio 14.9 RATIO (10-20); Chloride 105 mmol/L (98-107); Creatinine, Serum 0.87 mg/dL (0.55-1.02); EST Glomerular Filtration Rate 70 mL/min (>60); Est Glom Filt Rate - Afr Amer 84 mL/min (>60); Glucose 98 mg/dL (74-106); Potassium 3.8 mmol/L (3.5-5.1); Sodium Level 138 mmol/L (136-145)
[2020-04-19 12:04] LABS: AST(SGOT) 18 U/L (15-37); Alanine Aminotransfer ALT/SGPT 23 U/L (13-56); Albumin, Serum 3.5 g/dL (3.2-5.0); Alkaline Phosphatase 102 U/L (45-117); Bilirubin, Direct 0.15 mg/dL (0.00-0.30); Globulin 3.1 g/dL (2.2-4.2); Protein, Total 6.6 g/dL (6.4-8.2); Thyroid Stim Hormone (TSH) 9.71 uIU/mL (0.358-3.74)
[2020-04-30] VITALS (11 sets, daily range): BP systolic 150–186; BP diastolic 71–118; PULSE 69–102; RESP 16–18; TEMP 36.3–37.4; O2SAT 96–100; BMI 29.1
[2020-04-30] MEDS: Lactated Ringers 1,000 ML 999 ML IV (07:00)
--- NOTE | 2020-04-30 09:40 | PCM.HP.BLA ---
History and Physical Date of Admission: 04/30/20 Intake Intake Visit Reasons: left knee Accompanied by: Friend Is patient in pain?: Yes Allergies lithium Allergy (Mild, Verified 04/16/20 08:59) Vomiting aspartame Allergy (Verified 04/16/20 08:59) Itching ciclesonide [From Alvesco] Allergy (Verified 04/16/20 08:59) Shortness of breath diphenhydramine HCl [From Benadryl] Allergy (Verified 04/16/20 08:59) Rash imipramine Allergy (Verified 04/16/20 08:59) Other levofloxacin [From Levaquin] Allergy (Verified 04/16/20 08:59) Itching onabotulinumtoxinA [From Botox] Allergy (Verified 04/16/20 08:59) Itching Penicillins Allergy (Verified 04/16/20 08:59) Rash topiramate [From Topamax] Allergy (Verified 04/16/20 08:59) Other sertraline [From Zoloft] Adverse Reaction (Verified 04/16/20 08:59) serotoin syndrome Medications Fluticasone 0.05% [Flonase Nasal [place]] 2 spray NASAL DAILY 01/03/16 [History Confirmed 04/19/20] Tizanidine HCl [Zanaflex] 4 mg PO BID 01/03/16 [History Confirmed 04/19/20] aspirin 81 mg chewable tablet 81 mg PO DAILY 12/16/17 [History Confirmed 04/19/20] Levothyroxine Sodium [Synthroid] 75 mcg PO DAILY 10/21/18 [History Confirmed 04/19/20] Lisinopril 5 mg PO DAILY 10/21/18 [History Confirmed 04/19/20] Metamucil 2 cap PO BID 10/21/18 [History Confirmed 04/19/20] Cyanocobalamin (Vitamin B-12) [Vitamin B-12] 100 mg PO QHS 12/02/18 [History Confirmed 04/19/20] Multivitamin [One Daily Multivitamin] 1 ea PO DAILY 12/02/18 [History Confirmed 04/19/20] buprenorphine 20 mcg/hour weekly transdermal patch 1 patch TRANSDERMAL QWEEK 06/19/19 [History Confirmed 04/19/20] tramadol 50 mg tablet 100 mg PO DAILY 06/19/19 [History Confirmed 04/19/20] Lorazepam [Ativan] 0.5 mg PO TID 06/22/19 [History Confirmed 04/19/20] Polyethylene Glycol 3350 [Miralax] 17 gm PO DAILY PRN 06/22/19 [History Confirmed 04/19/20] Acetaminophen [Tylenol Extra Strength] 500 mg PO Q6H PRN PRN 04/16/20 [History Confirmed 04/16/20] Albuterol Inhaler [Ventolin Hfa (SP)] 1 - 2 puff INHALATION Q4H PRN PRN 04/16/20 [History Confirmed 04/19/20] Celecoxib [Celebrex] 200 mg PO DAILY 04/16/20 [History Confirmed 04/19/20] Diclofenac Sodium [Voltaren] 1 gm TOPICAL DAILY 04/16/20 [History Confirmed 04/19/20] Guaifenesin/Pseudoephedrne HCl [Mucinex D ER 600-60 mg Tablet] 1 ea PO BID 04/16/20 [History Confirmed 04/19/20] Hydrocortisone 1% Crm [Hytone] 1 applic TOPICAL DAILY 04/16/20 [History Confirmed 04/19/20] Mag Hydrox/Al Hydrox/Simeth [Mylanta II] 30 ml PO Q4H PRN PRN 04/16/20 [History Confirmed 04/19/20] Meclizine HCl [Antivert] 12.5 mg PO DAILY PRN PRN 04/16/20 [History Confirmed 04/19/20] proMETHazine tablet [Phenergan tablet] 25 mg PO Q8H PRN PRN 04/16/20 [History Confirmed 04/19/20] traMADol [Ultram (G)] 50 mg PO TID 04/16/20 [History Confirmed 04/19/20] PFSH Medical History (Updated 06/27/19 @ 10:[address] Justice Montelongo DO) Bipolar 1 disorder (Chronic) Cerebral palsy (Chronic) Fibromyalgia (Chronic) HBP (high blood pressure) (Chronic) Hypothyroid (Chronic) Social History (Updated 04/19/20 @ 10:[address] Justice Montelongo DO) Smoking Status: Never smoker HPI left knee: Details: Parts of this documentation were recorded by a scribe, this documentation accurately reflects the service provided and the decisions made by , Dr. Justice Montelongo DO 04/19/20 0755. STEVE FAGAN is a 65 year old F here today for left knee pain and Iovera treatment for upcoming total knee replacement. She continues to have pain and difficulty with ambulation. Patient does have a reaction to her pain patch that is visible on the upper quad of the left leg. ROS Musc Reports as per HPI, Reports abnormal walking, Reports joint pain, Reports limited joint movement, Reports muscle weakness Skin/Breast Reports as per HPI Neuro Yes as per HPI, Yes abnormal walking Ortho Exam Left Knee Skin/Wound: Yes CDI, No ecchymosis, No erythema, No swelling Homans Sign: No Knee ROM: Yes ROM-Extension -20 to 0, Yes ROM-Flexion 0-140 (100) Examination: Yes med jt line tenderness, Yes Lat jt line tenderness Stability: NML: Posterior Drawer, NML: Valgus 30, NML: Varus 30, 2+: Anterior Drawer Apprehension with Lateral Translation: No Patella Grind: Yes KNEE: good ankle range of motion. valgus deformity Office Procedures Iovera Details:: Preoperative diagnosis : left knee pain Postoperative diagnosis: Same Procedure: Cryotherapy with Iovera device to anterior femoral cutaneous nerve and 2 branches of the infrapatellar saphenous nerve III nerves in total Description of procedure: Patient was brought back to the procedure room the operative extremity was identified by both patient and physician. The PIP flexion crease was measured to the midpoint of the patella and this distance was divided in 3 resulting in 10 cm location proximal to the midpoint of the patella. This line was extended medial and lateral to the extent of the edges of the patella. This was our treatment line for the anterior femoral cutaneous nerve. A second treatment line was made 5 cm medial to the inferior pole of the patella and 5 cm distally. The leg was prepped with alcohol and Betadine. Lidocaine with epi was used along the treatment lines. Using the Iovera device treatment lines were treated with 1 minute cycles. Reproduction of paresthesias was monitored in the area of nerve distribution. Once all 3 nerves were treated across the 2 treatment lines patient was cleaned and a light dressing with 4 x 4 and Jose wrap was applied. Patient tolerated the procedure without complication. Supplemental Info 04/01/2020 x-ray left knee: Advanced tricompartmental DJD Assessment & Plan Problems 1. Chronic pain of left knee M25.562; G89.29 Plan Instructed to stop using her pain patch, the diclofenac cream and hydrocortisone on the left leg prior to surgery starting now. Patient tolerated the procedure well today and patient understands the Risks, benefits and alternatives of surgery reviewed including but not limited to bleeding, infection, nerve, artery and/or tissue damage, fracture, VTE, mechanical feel of the knee, continued pain, stiffness and expected post-operative course. Once again reviewed the risk of COVID-19 exposure and potential complications if contracted, she does wish to assume this risk and proceed with tka Follow up postop or sooner if pain, swelling, numbness or associated symptoms, or concerns develop. All questions answered. Patient in agreement of plan. Orders Orders: Iovera Today M25.569 Coding Level of Care Code Attention Foam Tank Laminator Diagnoses Chronic pain of left knee M25.562; G89.29 ??Chronicity: chronic I have re-examined the patient. There are no clinical changes since date of exam
[2020-04-30 09:44] LABS: Magnesium 2.1 mg/dL (1.6-2.6)
[2020-04-30] MEDS: Acetaminophen 500 MG Tablet 1000 MG PO ×3 (09:44→21:29)
[2020-04-30] MEDS: Gabapentin 600 MG Tablet PO (09:45)
[2020-04-30] MEDS: Scopolamine 1mg/72hr Patch 1 PATCH TRANSDERM. (09:45)
[2020-04-30 10:01] LABS: Bedside Glucose 84 mg/dL (70-110)
[2020-04-30] MEDS: Cefazolin 2 GM in 0.9% Normal Saline 100 ML IV (10:36)
[2020-04-30] MEDS: Epinephrine (1 mg/ml) 1 MG/ML VIAL (12:16)
[2020-04-30] MEDS: Betamethasone/Betamethasone 30 MG/5 ML Vial (12:16)
[2020-04-30] MEDS: Bupivacaine Mpf 0.5% 30 ML VIAL (12:16)
[2020-04-30] MEDS: Lactated Ringers 1,000 ML 125 ML IV (12:45)
--- NOTE | 2020-04-30 12:46 | RAD_ITS ---
STUDY: X-RAY - LEFT KNEE REASON FOR EXAM: Female, 65 years old. POST OP KNEE LEFT TECHNIQUE: AP and lateral view(s) of the knee. COMPARISON: Comparison is made with prior study dated April 01, 2020. FINDINGS: Normal visualized distal femur. Normal visualized proximal tibia and fibula. Normal proximal tibiofibular articulation. The patient is status post total knee replacement. There is good alignment. Postoperative soft tissue changes. RAD/Knee 1 or 2 Views IMPRESSION: Status post total knee replacement. There is good alignment. Postoperative soft tissue changes. Electronically Signed: Guerrero Hooper, at 14:06 EDT , Service support ,
--- NOTE | 2020-04-30 12:48 | OP.PCM_ITS ---
Report of Operation Date of Procedure: 04/30/20 Description of Surgical Findings:: Preoperative diagnosis: Left knee DJD Postoperative diagnosis: Same Procedure: Left total knee arthroplasty CT guided Robotic Assisted Implant: Barry triathlon press fit femoral component size 3, press-fit tibial baseplate size 4, press fit asymmetric patella size 29, polyethylene X3 size 9 CS Anesthesia: General with adductor canal block Tourniquet time: 12 minutes at 300 mmHg Complications: None Condition: Stable to PACU Estimated blood loss: 200 cc Indication for procedure: This is a 65-year-old female with long standing degenerative joint disease of the knee who has failed conservative treatment and wished to proceed with elective total knee arthroplasty. Risk benefits and alternatives were reviewed including; risk of bleeding, infection, nerve artery and tissue damage, continued pain, postoperative stiffness, venous thromboembolism, need for postoperative rehabilitation, mechanical feel to the knee, and expected postoperative course. The operative CT and templating was performed with component sizing Procedure: The patient was met in the preoperative holding area. The operative extremity was identified by both patient and physician and was marked. Patient was met by anesthesia. An adductor canal block was placed by anesthesia postoperatively the patient was brought back to the operating room on a wheeled cart and transferred to the operating table in the supine position. Anesthesia was started. A well-padded tourniquet was placed on the operative extremity. The patient was prepped and draped in the usual sterile fashion. A timeout was called to ensure the proper patient procedure and extremity were being contemplated. An Esmarch was used to exsanguinate the extremity. The tourniquet was inflated. A 10 blade scalpel was used to make a midline incision down through the skin and subcutaneous tissue. Skin retractors placed. Bovie was used to perform meticulous hemostasis. full-thickness flaps were elevated medial and lateral along the joint capsule. A deep blade scalpel was used to perform a medial parapatellar arthrotomy. The knee was brought to full extension. A Bovie was used to release the soft tissues off the most proximal aspect of the medial tibial plateau a three-quarter inch curved osteotome was also used for this process. The infrapatellar fat pad was excised. The fat pad was excised partially anterior lateral portion the anterior medial was elevated from the femur. At this point our intra-articular femoral array was placed of a 45 degree angle proximal and posterior to the medial epicondyle. Our tibial array was placed greater than 1 hands breath below the incision at a 20 degree angle stab incisions were used for this case were attached and checked with the robotic software. Tourniquet was let down. At this point registration hearn were taken throughout the knee as well as checkpoints placed in the femur and tibia once the knee was registered then tensioned the medial and lateral ligaments in extension and 90 degrees of flexion. We then used these numbers to adjust our components within parameters to balance the knee in both flexion and extension once this was done on our monitor we then proceeded with using the robotic arm to make our tibial plateau cut and anterior posterior and chamfer cuts on the femur we then trialed and achieved the desired plan with a well- balanced knee. Lug holes were drilled in the femur the tibia preparation was completed with a fin punch and the patella was prepared by first using a caliper to ensure sufficient bone stock and a patellar reamer to remove the desired amount of bone locals were drilled for an asymmetric poly-. We then brought the knee through range of motion with excellent patellar tracking. We thoroughly irrigated the knee with a trial components were removed a posterior capsular injection with her standard cocktail was performed the aqua Mantis was also used to aid in hemostasis. Betadine rinse was allowed to sit and washed out components were press-fit into place. Aricept rinse was then used followed by several more rate liters of irrigation after it was allowed to sit. Joint capsule was closed with #1 Ethibond [id number] followed by Vicryl in the subcutaneous tissues staple in the skin arrays and checkpoints were removed prior to closure all counts were correct stab incisions were closed with a stable standard dressing in the form of Mepilex for the main incision Xeroform 4 x 4 and Tegaderm over pin site holes. Thigh-high CHARANJIT hose applied over top of dressing. Patient tolerated the procedure well and was directed to PACU in stable condition no intraoperative complications
--- NOTE | 2020-04-30 12:50 | PCM.DC.ORTHO ---
Discharge Diet: No Restrictions Weight Bearing Status: Weight bearing as tolerated Call your doctor if you observe: Shortness of breath, Chest pain Additional Instructions: Ice and elevate one week while not ambulating. Ambulation is encouraged. Weightbearing as tolerated. Use assistive devise for stability. Encourage FULL knee extension and flexion 1 time EVERY time you get up and down and MULTIPLE times per day. No showering 72 hours after surgery. Begin showering postop day #3. Remove the dressing prior to shower and gently wash with warm water and antibacterial soap then pat dry and place abdominal pad (or plain gauze) and CHARANJIT hose over top. This is to be done daily. Do not submerge for 3 weeks. If not showering daily after the initial 72 hours then you must clean incision and change dressing daily. Do not allow animals near the incision area. Keep clean. Follow anticoagulation recommendations as prescribed. Do not take any NSAIDs while on blood thinner. Do not take any additional narcotic pain medication other than what was perscribed on you surgery day without discussing with physician. Start physical therapy. If you are not currently scheduled for physical therapy or you are unsure of appointment time please call office [facility] to arrange. Call Dr. Montelongo with any concerns. Allergies/Adverse Reactions: Allergies lithium Allergy (Mild, Verified 04/30/20 09:35) Vomiting aspartame Allergy (Verified 04/30/20 09:35) Itching ciclesonide [From Alvesco] Allergy (Verified 04/30/20 09:35) Shortness of breath diphenhydramine HCl [From Benadryl] Allergy (Verified 04/30/20 09:35) Rash imipramine Allergy (Verified 04/30/20 09:35) Other levofloxacin [From Levaquin] Allergy (Verified 04/30/20 09:35) Itching onabotulinumtoxinA [From Botox] Allergy (Verified 04/30/20 09:35) Itching Penicillins Allergy (Verified 04/30/20 09:35) Rash topiramate [From Topamax] Allergy (Verified 04/30/20 09:35) Other sertraline [From Zoloft] Adverse Reaction (Verified 04/30/20 09:35) serotoin syndrome Medications to take at Discharge Fluticasone 0.05% [Flonase Nasal [place]] 2 spray NASAL DAILY 01/03/16 Tizanidine HCl [Zanaflex] 4 mg PO BID 01/03/16 aspirin 81 mg chewable tablet 81 mg PO DAILY 12/16/17 Levothyroxine Sodium [Synthroid] 75 mcg PO DAILY 10/21/18 Lisinopril 5 mg PO DAILY 10/21/18 Metamucil 2 cap PO BID 10/21/18 Cyanocobalamin (Vitamin B-12) [Vitamin B-12] 100 mg PO QHS 12/02/18 Multivitamin [One Daily Multivitamin] 1 ea PO DAILY 12/02/18 buprenorphine 20 mcg/hour weekly transdermal patch 1 patch TRANSDERMAL QWEEK 06/19/19 tramadol 50 mg tablet 100 mg PO DAILY 06/19/19 Lorazepam [Ativan] 0.5 mg PO TID 06/22/19 Polyethylene Glycol 3350 [Miralax] 17 gm PO DAILY PRN 06/22/19 Acetaminophen [Tylenol Extra Strength] 500 mg PO Q6H PRN PRN 04/16/20 Albuterol Inhaler [Ventolin Hfa (SP)] 1 - 2 puff INHALATION Q4H PRN PRN 04/16/20 Celecoxib [Celebrex] 200 mg PO DAILY 04/16/20 Diclofenac Sodium [Voltaren] 1 gm TOPICAL DAILY 04/16/20 Guaifenesin/Pseudoephedrne HCl [Mucinex D ER 600-60 mg Tablet] 1 ea PO BID 04/16/20 Hydrocortisone 1% Crm [Hytone] 1 applic TOPICAL DAILY 04/16/20 Mag Hydrox/Al Hydrox/Simeth [Mylanta II] 30 ml PO Q4H PRN PRN 04/16/20 Meclizine HCl [Antivert] 12.5 mg PO DAILY PRN PRN 04/16/20 proMETHazine tablet [Phenergan tablet] 25 mg PO Q8H PRN PRN 04/16/20 traMADol [Ultram (G)] 50 mg PO TID 04/16/20 Primary Care Physician: Alex Self MD [Primary Care Provider] - Test Results: Test results from this visit will be discussed in further detail at your follow-up appointment, if applicable. Please Follow Up With: Justice Montelongo DO - 2 weeks
--- NOTE | 2020-04-30 13:25 | CASEMGMT ---
Addendum entered by Bethany Almanza 04/30/20 13:57: SW placed transfer to extended care facility on pt's chart. Addendum entered by Bethany Almanza 04/30/20 13:55: BRYCE received call from Ngoc in TCU stating pharmacy ran pt's medications. Pt is currently on home medication Buprenorphine and that is roughly around $600 a week. Pt would not be able to admit to TCU if pt is prescribed that medication. Original Note: Social Work Note SW received update that physician is requesting pt go to either TCU or RU at discharge. Pt wouldn't be able to go to RU as pt is in observation and is joint pt and RU is not able to accept observation joint pt. BRYCE placed a call to Ngoc on referral line and provided referral to TCU. Ngoc states she is able to accept pt on TCU tomorrow. BRYCE will follow up with pt tomorrow as pt is just having surgery today. Plan: TCU tomorrow Bethany Almanza SOURCING INTERNSHIP, SHUTTLE VENEERING SUPERVISOR
[2020-04-30] MEDS: Cefazolin 1 GM/50 ML BAG IV ×2 (13:26→21:31)
[2020-04-30] MEDS: oxyCODONE 5 MG Tablet PO ×2 (15:31→21:27)
--- NOTE | 2020-04-30 16:05 | CASEMGMT ---
Social Work Note BRYCE received call from Tania with TCU stating they are unable to confirm pt's Medicare days. Tania states TCU is able to accept, as long as pt is not discharged with the buprenorphine patch, but pt will need to know that if TCU is unable to confirm Medicare days pt would be private pay of around $600 a day. BRYCE updated Tania that this worker is leaving for the day, will update pt tomorrow. Bethany Almanza CIRCUITS ENGINEER, VEHICLE TRIMMER
[2020-04-30] MEDS: Ketorolac 15 MG/ML Vial IV (17:22)
[2020-04-30] MEDS: 0.9% NaCl Peripheral Flush Adult/Peds IV ×2 (17:23→21:30)
[2020-04-30] MEDS: Senna/Docusate Sodium 1 Tablet 2 TABLET PO (21:37)
[2020-05-01] MEDS: 0.9% NaCl Peripheral Flush Adult/Peds IV ×3 (00:31→07:54)
[2020-05-01] MEDS: Ketorolac 15 MG/ML Vial IV ×2 (00:31→08:16)
[2020-05-01] MEDS: oxyCODONE 5 MG Tablet PO ×4 (02:37→15:51)
[2020-05-01 02:42] VITALS: BP 144/108; PULSE 94; RESP 18; TEMP 37.9; O2SAT 100; BMI 29.1
[2020-05-01] MEDS: Cefazolin 1 GM/50 ML BAG IV (05:42)
[2020-05-01] MEDS: Acetaminophen 500 MG Tablet 1000 MG PO ×2 (05:45→14:04)
[2020-05-01] MEDS: APIXABAN 2.5 MG TABLET PO (06:15)
[2020-05-01 06:17] VITALS: BMI 29.1
[2020-05-01 06:45] LABS: Hematocrit 29.4 % (37-47); Hemoglobin 9.5 g/dL (12.0-15.0); Mean Corp Hgb Conc 32.3 g/dL (32-36); Mean Corpuscular Hgb 29.1 pg (27.0-32.0); Mean Corpuscular Volume 89.9 fL (81-99); Mean Platelet Vol. 9.2 fl (6.2-12.0); Platelet Count 220 K/mm3 (150-450); RBC Distribution Width CV 13.1 % (11.6-14.6); Red Blood Count 3.27 M/mm3 (4.2-5.4); White Blood Count 10.7 K/mm3 (4.4-11.0)
[2020-05-01 06:56] LABS: Anion Gap 6 (5-15); BUN 12 mg/dL (7-18); BUN/Creat Ratio 12.4 RATIO (10-20); Chloride 105 mmol/L (98-107); Creatinine, Serum 0.97 mg/dL (0.55-1.02); EST Glomerular Filtration Rate 62 mL/min (>60); Est Glom Filt Rate - Afr Amer 75 mL/min (>60); Estimated Creatinine Clearance 53.42 ml/min; Glucose 138 mg/dL (74-106); Sodium Level 137 mmol/L (136-145)
--- NOTE | 2020-05-01 07:17 | DS.PCM_ITS ---
Discharge Date and Diagnosis Date of Admission: 04/30/20 Date of Discharge: 05/01/20 Hospital Course and Treatment Summary of Care Provided: The patient is a 65 year old F who underwent left total knee arthroplasty on 04/30/2020 without any intraoperative complication. she did have pre and post operative antibiotics and was starrted on mechanical and chemopropylaxis post operatively she did not require a blood transfusioin and did receive transexamic acid. she will be discharged to SNF she will continue eliquis 2.5 mg bid for 2 weeks post operatively she should follow up with me in 2 weeks. - Physical Exam Vitals/I&O's: Vital Signs Temp Pulse Resp BP Pulse Ox 100.2 F H 94 18 144/108 H 100 05/01/20 02:42 05/01/20 02:42 05/01/20 02:42 05/01/20 02:42 05/01/20 02:42 Oxygen Flow Rate (L/min) 6 Oxygen Delivery Method Room Air Weight: 175 lb 0.752 oz Body Mass Index (BMI) 29.1 Intake and Output for Last 24 Hours 04/29/20 04/30/20 05/01/20 23:59 23:59 23:59 Intake Total 2485 / 3305 1320 / 1320 Output Total 900 / 1600 1600 / 1600 Balance 1585 / 1705 -280 / -280 General: Alert, Oriented x3, Cooperative, No apparent distress Extremities: - - dressing with small amount of blood but still sealed. NVI compartments soft. Laboratory Results 04/30/20 09:30: Magnesium 2.1 04/30/20 09:34: POC Glucose 84 05/01/20 06:30: WBC 10.7, RBC 3.27 L, Hgb 9.5 L, Hct 29.4 L, MCV 89.9, MCH 29.1, MCHC 32.3, RDW Std Deviation 43.0, RDW Coeff of Lindsey 13.1, Plt Count 220, MPV 9.2 05/01/20 06:30: Sodium 137, Potassium 5.0, Chloride 105, Carbon Dioxide 26.0, Anion Gap 6, BUN 12, Creatinine 0.97, Estim Creat Clear Calc 53.42, Est GFR (MDRD) Af Amer 75, Est GFR (MDRD) Non-Af 62, BUN/Creatinine Ratio 12.4, Glucose 138 H, Calcium 8.0 L Current Medications Acetaminophen (Tylenol) 1,000 mg PO Q8 ROSLYN Last Admin: 05/01/20 05:45 Dose: 1,000 mg Documented by: Al Hydroxide/Mg Hydroxide (Mylanta Ii) 30 ml PO Q4H PRN PRN PRN Reason: Constipation Apixaban (Eliquis) 2.5 mg PO BID ROSLYN Last Admin: 05/01/20 06:15 Dose: 2.5 mg Documented by: Aspirin (Aspirin, Baby) 81 mg PO DAILY ROSLYN Celecoxib (Celebrex) 200 mg PO DAILY [facility] Fluticasone Propionate (Flonase Nasal [place]) 2 spray NASAL DAILY [facility] Hydromorphone HCl (Dilaudid Inj) 0.5 mg IV Q2H PRN PRN PRN Reason: Pain Score 6-10/10 Cefazolin Sodium () 1 gm in 50 mls @ 100 mls/hr IV Q8H ROSLYN Last Infusion: 05/01/20 06:25 Dose: Infused Documented by: Sodium Chloride () 250 mls @ 15 mls/hr IV .[id number] PRN PRN Reason: Saline Flush Last Admin: 04/30/20 21:30 Dose: 15 mls/hr Documented by: Sodium Chloride () 250 mls @ 15 mls/hr IV .[id number] PRN PRN Reason: Additional IVPB Infusion Insulin Human Lispro (Humalog Kwikpen (Bk)) 1 - 6 unit SC Q4H PRN PRN; Protocol PRN Reason: BG>/= 180, SEE PROTOCOL Ketorolac Tromethamine (Toradol (Bkc)) 15 mg IV Q6H PRN PRN PRN Reason: Pain Score 1-5/10 Stop: 05/02/20 12:46 Last Admin: 05/01/20 00:31 Dose: 15 mg Documented by: Lisinopril (Zestril) 5 mg PO DAILY [facility] Lorazepam (Ativan) 0.5 mg PO TID [facility] Meclizine HCl (Antivert) 12.5 mg PO DAILY PRN PRN PRN Reason: ITCHING Non-Formulary Medication (Buprenorphine) 1 patch transdermal QWEEK [facility] Non-Formulary Medication (Cyanocobalamin (Vitamin B-12) [Vitamin B-12]) 100 mg PO QHS [facility] Non-Formulary Medication (Diclofenac Sodium) 1 gm topical DAILY [facility] Non-Formulary Medication (Levothyroxine Sodium [Synthroid]) 75 mcg PO DAILY [facility] Non-Formulary Medication (Tizanidine Hcl [Zanaflex]) 4 mg PO BID [facility] Ondansetron HCl (Zofran) 4 mg IV Q6H PRN PRN PRN Reason: NAUSEA Oxycodone HCl (Oxyir) 5 - 10 mg PO Q4H PRN PRN PRN Reason: Pain Score 4-10/10 Last Admin: 05/01/20 06:59 Dose: 10 mg Documented by: Polyethylene Glycol (Miralax) 17 gm PO DAILY PRN PRN Reason: Constipation Promethazine HCl (Phenergan Tablet) 25 mg PO Q8H PRN PRN PRN Reason: ITCHING Senna/Docusate Sodium (Senokot-S, Regina-Colace) 2 tablet PO BID ROSLYN Last Admin: 04/30/20 21:37 Dose: 2 tablet Documented by: Sodium Chloride () 5 - 15 ml IV UD PRN PRN Reason: SALINE FLUSH Last Admin: 05/01/20 05:42 Dose: 10 ml Documented by: Discharge Diet: No Restrictions Weight Bearing Status: Weight bearing as tolerated Call your doctor if you observe: Shortness of breath, Chest pain Home Medications: Medications to take at Discharge Fluticasone 0.05% [Flonase Nasal [place]] 2 spray NASAL DAILY 01/03/16 Tizanidine HCl [Zanaflex] 4 mg PO BID 01/03/16 aspirin 81 mg chewable tablet 81 mg PO DAILY 12/16/17 Levothyroxine Sodium [Synthroid] 75 mcg PO DAILY 10/21/18 Lisinopril 5 mg PO DAILY 10/21/18 Metamucil 2 cap PO BID 10/21/18 Cyanocobalamin (Vitamin B-12) [Vitamin B-12] 100 mg PO QHS 12/02/18 Multivitamin [One Daily Multivitamin] 1 ea PO DAILY 12/02/18 buprenorphine 20 mcg/hour weekly transdermal patch 1 patch TRANSDERMAL QWEEK 06/19/19 tramadol 50 mg tablet 100 mg PO DAILY 06/19/19 Lorazepam [Ativan] 0.5 mg PO TID 06/22/19 Polyethylene Glycol 3350 [Miralax] 17 gm PO DAILY PRN 06/22/19 Acetaminophen [Tylenol Extra Strength] 500 mg PO Q6H PRN PRN 04/16/20 Albuterol Inhaler [Ventolin Hfa (SP)] 1 - 2 puff INHALATION Q4H PRN PRN 04/16/20 Celecoxib [Celebrex] 200 mg PO DAILY 04/16/20 Diclofenac Sodium [Voltaren] 1 gm TOPICAL DAILY 04/16/20 Guaifenesin/Pseudoephedrne HCl [Mucinex D ER 600-60 mg Tablet] 1 ea PO BID 04/16/20 Hydrocortisone 1% Crm [Hytone] 1 applic TOPICAL DAILY 04/16/20 Mag Hydrox/Al Hydrox/Simeth [Mylanta II] 30 ml PO Q4H PRN PRN 04/16/20 Meclizine HCl [Antivert] 12.5 mg PO DAILY PRN PRN 04/16/20 proMETHazine tablet [Phenergan tablet] 25 mg PO Q8H PRN PRN 04/16/20 traMADol [Ultram (G)] 50 mg PO TID 04/16/20 Primary Care Physician: Alex Self MD [Primary Care Provider] - Please Follow Up With: Justice Montelongo DO - 2 weeks Additional Instructions: Ice and elevate one week while not ambulating. Ambulation is encouraged. Weightbearing as tolerated. Use assistive devise for stability. Encourage FULL knee extension and flexion 1 time EVERY time you get up and down and MULTIPLE times per day. No showering 72 hours after surgery. Begin showering postop day #3. Remove the dressing prior to shower and gently wash with warm water and antibacterial soap then pat dry and place abdominal pad (or plain gauze) and CHARANJIT hose over top. This is to be done daily. Do not submerge for 3 weeks. If not showering daily after the initial 72 hours then you must clean incision and change dressing daily. Do not allow animals near the incision area. Keep clean. Follow anticoagulation recommendations as prescribed. Do not take any NSAIDs while on blood thinner. Do not take any additional narcotic pain medication other than what was perscribed on you surgery day without discussing with physician. Start physical therapy. If you are not currently scheduled for physical therapy or you are unsure of appointment time please call office [facility] to arrange. Call Dr. Borruso with any concerns. Medical Necessity - Tobacco Use Smoking Status: Never smoker Tobacco Use: Non-smoker Meaningful Use Info Meaningful Use Diagnoses (Choose all that apply): None applicable
[2020-05-01] MEDS: Aspirin 81 MG TAB.CHEW PO (07:53)
[2020-05-01] MEDS: Senna/Docusate Sodium 1 Tablet 2 TABLET PO (08:16)
[2020-05-01] MEDS: Lisinopril 5 MG Tablet PO (08:16)
[2020-05-01] MEDS: tiZANidine HCl 2 MG Tablet 4 MG PO (08:20)
[2020-05-01 08:42] VITALS: BP 156/68; PULSE 85; RESP 18; TEMP 37.1; O2SAT 98
--- NOTE | 2020-05-01 10:01 | CASEMGMT ---
Addendum entered by Bethany Almanza 05/01/20 10:10: Pt had also stated that she has no steps at [facility] and she has a rollator, regular walker and two canes. Original Note: Social Work Note SW in to speak with pt regarding discharge plans. SW introduced self and role at [facility]. Pt is alert and orientated x3. Pt states I am going to TCU. SW informed pt that TCU admissions is stating that her Medicare days are not showing up so pt is able to go to TCU but if Medicare days were to not show up, pt would be held responsible for private pay for days at [facility]. Pt states well I can't afford that. SW explained that this worker can see if TCU can check her days again but if TCU still continues to say the days are not available and pt goes to TCU, then pt will have a private pay bill to pay and U is about $600 a day private pay. Pt states well I can't go back to [facility] as I need too much assistance. SW informed pt that this worker could call [facility] to see if they could take pt back with how pt is doing now with PT/OT and also ask if they could get [facility] for pt for therapy when pt returns. Pt states that her MICHELLE Uriasler will need the know the information and also states she has MATHEUS Beth through the Waiver Program and she may have information regarding pt's Medicare days. Pt states that she has been at [facility] since December 2019. Pt states before that she was at [facility] for about 10.5 years. Pt states at one time she tried to get to [facility] for her shoulder but because I have a psych diagnosis, I had to go to psych placement. SW asked pt if within the last 90 days if pt has been to SNF and pt denied, again states she has been at [facility] since December 2019. BRYCE placed a call to Ngoc in TCU. Ngoc states pt's Medicare days are still not showing up. BRYCE asked Ngoc if there was a Medicare number that this worker could call and Ngoc states she will call Medicare. BRYCE placed a call to pt's MATHEUS Guzman at [facility] and left message updating her on pt's admission to [facility] and asked about pt's Medicare days. SW waiting for call back from Ngoc in TCU. SW will update pt and pt's POA once more information is obtained. Plan: [facility]. Bethany Almanza BOTTOM SAW OPERATOR, EXPLOSIVE MAN
[2020-05-01 10:42] VITALS: BMI 29.1
[2020-05-01] MEDS: Fluticasone 0.05% 1 SPRAY NASAL.SRY 2 SPRAY NASAL (10:43)
[2020-05-01] MEDS: Celecoxib 200 MG Capsule PO (10:43)
--- NOTE | 2020-05-01 10:57 | CASEMGMT ---
Social Work Note SW received call from Ngoc in TCU. She attempted to call pt's Medicare and was bounced around and couldn't get any information because she wasn't an approved person for pt. Ngoc provided Medicare number . Ngoc states the Medicare number they were using was pt's social security number (which is the old Medicare numbers). BRYCE placed a call to Medicare and was transferred to the claim line. SW unable to speak with person, was just bounced around from message system to message system. SW eventually transferred to claim line but SW is not asking about a claim, SW is trying to determine if pt has skilled days for SNF. SW reviewed chart. Pt's has recent Medicare card that was scanned last month. There is a new Medicare number on card. SW placed a call to Ngoc and [facility] and asked to run the new Medicare number. SW received call from pt's room. Pt states that she needs three stays in the hospital and she also had a psych stay in 2016 and then after the psych hospital she went to [facility]. SW explained that the three midnight stay doesn't need to happen at this time and neither that or her psych stay from four years ago is going to affect her Medicare Days. SW explained that this worker is trying another Medicare number to run again to see if the new number shows any days. BRYCE waiting for call from TCU regarding Medicare days. Bethany Almanza WORKERS COMPENSATION DEFENSE ATTORNEY, AUTO REFINISHER
--- NOTE | 2020-05-01 13:42 | CASEMGMT ---
Addendum entered by Bethany Almanza 05/01/20 15:07: SW received oxy script. Original in SNF folder and copy on pt's chart. BRYCE placed a call to Cyrus at [facility] and left message that pt will be going to TCU at discharge from [facility]. Addendum entered by Bethany Almanza 05/01/20 14:44: BRYCE received call from Ngoc in TCU stating TCU physician is willing to take pt without patch and manage her pain. BRYCE asked Ngoc if physician is able to just cross off the buprenorphine on medication list, sign his name, date, and say do not take and if that is appropriate for TCU and Ngoc states it is. SW updated ortho physician. Physician agreeable to crossing off buprenorphine. SW updated physician that script for oxy is still needed. Physician states his PA will be coming to [facility] and will sign oxy script. BRYCE faxed medication list to physician to update medication list. BRYCE received updated medication list from ortho physician. Original in SNF folder and copy on pt's chart. SW waiting for oxy script and then pt will be able to discharge to TCU. SW in to update pt that she is able to admit to TCU today. BRYCE informed pt that this worker will call her MICHELLE Brambila and update her. Pt states you may not get a hold of her so you should call Gloria. BRYCE informed pt that this worker will try both Gloria and Patty and provide updates. Pt states understanding. BRYCE placed a call to Gloria and updated her that pt will be discharged to TCU today. BRYCE also placed a call to pt's POA Patty and left message regarding discharge. Plan: TCU today Original Note: Social Work Note BRYCE updated by Ngco in TCU that the Medicare number that this worker gave her is the one that she provided to see about pt's Medicare days. BRYCE placed a call to Sherri at [facility]. BRYCE asked Sherri to confirm if pt has been at [facility] since December 2019. Sherri reviewed pt. Pt has been at [facility] since December 28, 2019 until April 30, 2020 when pt was admitted to [facility] for procedure. Sherri looked up pt's Medicare days. Sherri states when she ran pt's Medicare days it showed up blank which means pt hasn't used any of her Medicare days and has 100 skilled days available to use. Pt is able to admit to TCU under Medicare since pt has 100 skilled days left under Medicare benefits. BRYCE in to update pt. BRYCE also updated pt that her pain patch that she has will cost TCU $600 a week so pt is not able to have patch while at TCU. Pt states that she has friends that would be able to bring in her pain patch. Pt states that she just got the patches last week and has a month supply. Pt states the path doesn't need changed until Next Wednesday. SW informed pt that this worker will have to check with TCU about family bringing in pain patch. BRYCE placed a call to Ngoc in TCU and asked about family/friend bringing in pain patch. Ngoc states she will have to check. Ngoc also states that TCU will need script for Oxy. BRYCE received call back from Ngoc in TCU stating it is Medicare rule that pt being admitted to skilled under Medicare are not able to bring in home medications to take while at skilled. Pt's family/friends will not be able to bring in pain patch. BRYCE received transfer to extended care facility from physician. BRYCE placed a call to physician and updated physician that pt will need script for oxy and also informed physician regarding the pain patch that per Medicare, pt's are not permitted to take any in home medications while skilled so pt will not be able to admit to TCU with pain patch. Physician states then this worker will need to ask TCU physician if the physician will manage her pain once the patch is off. BRYCE placed a call to Ngoc in TCU, left message, asking if they can check with TCU physician regarding being able to manage pt's pain without the pain patch. BRYCE waiting for call back. BRYCE placed original copy of Transfer to extended care facility on SNF folder and copy on pt's chart, Bethany Almanza INSOLE TAPER, LIQUID COMPOUNDER
[2020-05-01] MEDS: Meclizine 12.5 MG Tablet PO (14:03)
[2020-05-01] MEDS: LORazepam 0.5 MG Tablet PO (14:03)
[2020-05-01 14:11] VITALS: BMI 29.1
[2020-05-01 14:42] VITALS: BP 155/76; PULSE 98; RESP 18; TEMP 36.7; O2SAT 98
[2020-05-01] MEDS: CLARIFY ORDER NOTE ×3 (15:46→15:47)
[2020-05-01 18:22] VITALS: BMI 29.1
== END 2020-05-01 18:34 ==
LOC: SDC 15:03 → MS3 15:05
PROVIDERS: Anesthesiology; Admitting Provider Orthopaedic Surgery; PCP Family Medicine; Referring Provider Orthopaedic Surgery; Visit Provider Orthopaedic Surgery
PROC: 0SRD0JZ Replacement of Left Knee Joint with Synthetic Substitute, Open Approach (ICD-10-PCS; CPT 27447; principal; 2020-04-30 10:45)
DX: M17.12 Unilateral primary osteoarthritis, left knee (principal); F31.9 Bipolar disorder, unspecified; I10 Essential (primary) hypertension; E03.9 Hypothyroidism, unspecified; G80.9 Cerebral palsy, unspecified; M79.7 Fibromyalgia; Z79.899 Other long term (current) drug therapy; Z79.82 Long term (current) use of aspirin; Z79.1 Long term (current) use of non-steroidal anti-inflammatories (NSAID); J45.909 Unspecified asthma, uncomplicated; K44.9 Diaphragmatic hernia without obstruction or gangrene; Z87.19 Personal history of other diseases of the digestive system; G62.9 Polyneuropathy, unspecified; F41.9 Anxiety disorder, unspecified; F25.9 Schizoaffective disorder, unspecified; G89.29 Other chronic pain; Z86.2 Personal history of diseases of the blood and blood-forming organs and certain disorders involving the immune mechanism
CPT/HCPCS: 01400; 27447; 64447; S2900; 36415; 73560; 80048; 80076; 82962; 83735; 84443; 85025; 85027; 85610; 85730; 86850; 86900; 86901; 87077; 87081; 87635; 93005; 96365; 96366; 96375; 96376; 97110; 97116; 97162; 97166; 97530; 97535; 99218; 99251; C1776; G2023; J7050; J7120; A4216; G0378; G0379; G0463; J0702; J2405; U0003

== ENCOUNTER 2020-05-01 18:40 | Inpatient (IN) | payer MEDICARE, MEDICAID, SELFPAY ==
[2020-04-30 14:42] VITALS: BMI 29.1
[2020-05-01 18:43] VITALS: BP 163/65; PULSE 95; RESP 16; TEMP 37.3; O2SAT 97; BMI 29.1
--- NOTE | 2020-05-01 21:09 | HP.PCM_ITS ---
Problem List (1) Debility Status: Acute (2) Osteoarthritis of left knee Status: Chronic (3) Bipolar disorder Status: Chronic (4) Cerebral palsy Status: Chronic (5) Fibromyalgia Status: Chronic (6) Allergic rhinitis Status: Chronic (7) Muscle spasm Status: Chronic (8) Hypothyroidism Status: Chronic (9) Hypertension Status: Chronic (10) Fecal impaction Status: Acute (11) Vitamin B12 deficiency Status: Acute (12) Opioid dependence Status: Acute (13) Anxiety Status: Acute (14) Benzodiazepine dependence Status: Acute (15) Dizziness Status: Acute (16) Nausea Status: Acute History of Present Illness Date of Admission: 05/01/20 Chief Complaint: Here for rehabilitation, strengthening, prior to discharge to [facility]. 04/30/2020 The patient is a 65 year old Female with below past medical history admitted to [facility]. 04/11/2020 CT left lower extremity showed left knee arthritis. 04/19/2020 EKG normal sinus rhythm, normal EKG. 04/30/[address] Dr[address] performed [address] guided robotic assisted left total knee arthroplasty. Received Pre and Post operative antibiotics. Tranexamic acid given, no blood transfusion required. Eliquis 2.5MG twice daily x 2 weeks for DVT prophylaxis. 05/01/2020 Admit to TCU with debility, here for rehabilitation, strengthening, prior to discharge to [facility]. Past Medical History Past Medical History (Chronic Problems): Chronic Problems (Last Updated 12/01/18 @ 13:44 by Suresh Escobar) Osteoarthritis of left knee (Chronic) Bipolar disorder (Chronic) Cerebral palsy (Chronic) Fibromyalgia (Chronic) Allergic rhinitis (Chronic) Muscle spasm (Chronic) Hypothyroidism (Chronic) Hypertension (Chronic) Medical History: Medical History (Last Updated 12/01/18 @ 13:44 by Suresh Escobar) Bipolar 1 disorder F31.9 Cerebral palsy G80.9 Fibromyalgia M79.7 HBP (high blood pressure) I10 Hypothyroid E03.9 Allergies lithium Allergy (Mild, Verified 04/30/20 09:35) Vomiting aspartame Allergy (Verified 04/30/20 09:35) Itching ciclesonide [From Alvesco] Allergy (Verified 04/30/20 09:35) Shortness of breath diphenhydramine HCl [From Benadryl] Allergy (Verified 04/30/20 09:35) Rash imipramine Allergy (Verified 04/30/20 09:35) Other levofloxacin [From Levaquin] Allergy (Verified 04/30/20 09:35) Itching onabotulinumtoxinA [From Botox] Allergy (Verified 04/30/20 09:35) Itching Penicillins Allergy (Verified 04/30/20 09:35) Rash topiramate [From Topamax] Allergy (Verified 04/30/20 09:35) Other sertraline [From Zoloft] Adverse Reaction (Verified 04/30/20 09:35) serotoin syndrome Home Medications: Ambulatory Orders Medication Instructions Recorded Fluticasone 0.05% [Flonase Nasal 2 spray NASAL DAILY 01/03/16 [place]] Tizanidine HCl [Zanaflex] 4 mg PO BID 01/03/16 aspirin 81 mg chewable tablet 81 mg PO DAILY 12/16/17 Levothyroxine Sodium [Synthroid] 75 mcg PO DAILY 10/21/18 Lisinopril 5 mg PO DAILY 10/21/18 Metamucil 2 cap PO BID 10/21/18 Cyanocobalamin (Vitamin B-12) 100 mg PO QHS 12/02/18 [Vitamin B-12] Multivitamin [One Daily 1 ea PO DAILY 12/02/18 Multivitamin] Lorazepam [Ativan] 0.5 mg PO TID 06/22/19 Polyethylene Glycol 3350 [Miralax] 17 gm PO DAILY PRN 06/22/19 Acetaminophen [Tylenol] 500 mg PO Q6H PRN PRN 04/16/20 Albuterol Inhaler [Ventolin Hfa] 1 - 2 puff INHALATION Q4H PRN PRN 04/16/20 Celecoxib [Celebrex] 200 mg PO DAILY 04/16/20 Diclofenac Sodium [Voltaren] 1 gm TOPICAL DAILY 04/16/20 Guaifenesin/Pseudoephedrne HCl 1 ea PO BID 04/16/20 [Mucinex D ER 600-60 mg Tablet] Hydrocortisone 1% Crm [Hytone] 1 applic TOPICAL DAILY 04/16/20 Mag Hydrox/Al Hydrox/Simeth 30 ml PO Q4H PRN PRN 04/16/20 [Mylanta II] Meclizine HCl [Antivert] 12.5 mg PO DAILY PRN PRN 04/16/20 proMETHazine tablet [Phenergan 25 mg PO Q8H PRN PRN 04/16/20 tablet] Acetaminophen [Tylenol] 1,000 mg PO Q8 05/01/20 Apixaban [Eliquis] 2.5 mg PO BID 05/01/20 Oxycodone [Oxyir] 5 - 10 mg PO Q4H PRN PRN #60 tab 05/01/20 Surgical History: cholecystectomy - Laparoscopic., total knee arthroplasty - Le ft., tonsillectomy, - - Arthroscopic bilateral knee surgery; Nose Surgery; Arthroscopic left shoulder surgery. 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 Smoking Status: Never smoker Tobacco Use: Non-smoker Alcohol: None Drugs: None - *Family History Maternal History Items: No pertinent history Paternal History Items: No pertinent history Review of Systems Constitutional: Denies: Chills, Fever, Weight Change HEENT: Denies: Head Aches, Sinus Congestion, Sinus Drainage Cardiovascular: Denies: Chest Pain, Palpitations Respiratory: Denies: Cough, Shortness of breath at rest, Sputum production Gastrointestinal: Denies: Abdominal Pain, Nausea, Vomiting Genitourinary: Denies: Dysuria Musculoskeletal: Denies: Joint Pain, Joint Tenderness Skin: Denies: Rash, Wounds Neurological: Denies: Numbness, Tingling, Focal weakness Psychiatric: Denies: Anxiety, Depression, Homicidal Ideations, Suicidal Ideations Hematologic/ Lymphatic: Denies: Easy Bruising, Easy Bleeding VTE Information - Inpt Only VTE Present on Admission: No VTE Mechan Device Prophylaxis: Knee High CHARANJIT Hose VTE Pharm Prophylaxis ordered?: Yes Patient Problems: Active and Suspected Problems (Last Updated 12/01/18 @ 13:44 by Suresh Escobar) Debility (Acute) Fecal impaction (Acute) Vitamin B12 deficiency (Acute) Opioid dependence (Acute) Anxiety (Acute) Benzodiazepine dependence (Acute) Dizziness (Acute) Nausea (Acute) - Physical Exam Vitals/I&O's: Vital Signs Temp Pulse Resp BP Pulse Ox 99.1 F 95 16 163/65 H 97 05/01/20 18:43 05/01/20 18:43 05/01/20 18:43 05/01/20 18:43 05/01/20 18:43 Oxygen Delivery Method Room Air Weight: 79.407 kg Body Mass Index (BMI) 29.1 General: Alert, Oriented x3, Cooperative HEENT: Atraumatic, PERRLA, EOMI, Normocephalic Neck: Supple, No JVD, Negative Carotid Bruits Lungs: Clear to auscultation, Normal air movement Cardiovascular: Regular rate, No murmurs Abdomen: Bowel Sounds Present, Soft, Non Tender Extremities: No edema, Capillary Refill Less than 3 Seconds Skin: No rashes, No breakdown Musculoskeletal: No Tenderness to Palpation of Joints or Extremities, Tenderness - Left knee dressed. Neurological: Cranial nerves II-XII grossly intact Psych/Mental Status: Normal Affect, Appropriate Laboratory Results 05/01/20 20:40: COVID-19 (WENDY) Pending Current Medications Acetaminophen (Tylenol) 500 mg PO Q6H PRN PRN PRN Reason: Pain Score 1-10/10 Acetaminophen (Tylenol) 1,000 mg PO Q8 ROSLYN Al Hydroxide/Mg Hydroxide (Mylanta Ii) 30 ml PO Q4H PRN PRN PRN Reason: Constipation Albuterol Sulfate (Ventolin Aerosols) 2.5 mg INHALATION Q4H PRN PRN PRN Reason: SOB/WHEEZE Apixaban (Eliquis) 2.5 mg PO BID ROSLYN Stop: 05/14/20 18:01 Aspirin (Aspirin, Baby) 81 mg PO DAILY [facility] Celecoxib (Celebrex) 200 mg PO DAILY [facility] Fluticasone Propionate (Flonase Nasal [place]) 2 spray NASAL DAILY [facility] Hydrocortisone (Hytone) 1 applic TOPICAL DAILY [facility] Levothyroxine Sodium (Synthroid) 75 mcg PO DAILY@0600 [facility] Lisinopril (Zestril) 5 mg PO DAILY [facility] Lorazepam (Ativan) 0.5 mg PO TID ROSLYN Meclizine HCl (Antivert) 12.5 mg PO DAILY PRN PRN PRN Reason: Vertigo and motion sickness Multivitamins (Multivitamin) 1 tablet PO DAILY@0800 [facility] Non-Formulary Medication (Diclofenac Sodium) 1 gm topical DAILY [facility] Oxycodone HCl (Oxyir) 5 - 10 mg PO Q4H PRN PRN PRN Reason: Pain Score 4-10/10 Polyethylene Glycol (Miralax) 17 gm PO DAILY PRN PRN Reason: Constipation Promethazine HCl (Phenergan Tablet) 25 mg PO Q8H PRN PRN PRN Reason: NAUSEA Psyllium Hydrophilic Mucilloid (Metamucil) 1 packet PO BID ROSLYN Tizanidine HCl (Zanaflex) 4 mg PO BID ROSLYN Tuberculin PPD (Tubersol, Aplisol, Ppd) 5 tu ID X1 ONE Stop: 05/02/20 10:01 Tuberculin PPD (Tubersol, Aplisol, Ppd) 5 tu ID X1 ONE Stop: 05/09/20 10:01 Assessment/Plan All Active Problems (Last Updated 12/01/18 @ 13:44 by Suresh Escobar) Debility (Acute) Fecal impaction (Acute) Vitamin B12 deficiency (Acute) Opioid dependence (Acute) Anxiety (Acute) Benzodiazepine dependence (Acute) Dizziness (Acute) Nausea (Acute) 65 year old female with below past medical history hospitalized for left total k nee replacement 04/30/[address] Montelongo, postoperative course uncomplicated, admitted to TCU with debility, here for rehabilitation, strengthening, prior to discharge to [facility]. * Debility - PT/OT. * Pain - Tylenol 1000MG Q8, Tylenol 500MG Q6H PRN pain (1-3), Oxycodone 10MG Q4H PRN pain (4-10). * Bowel - Miralax 17GM daily, Metamucil 1 packet BID, Senna/colace 2 tablets BID, Dulcolax 10MG daily PRN. * Adult immunization - Administer Prevnar 13, Pneumovax 23, Fluzone as appropriate. * DVT prophylaxis - Eliquis 2.5MG BID thru 05/14/2020. * Shortness of breath - Ventolin 2.5MG Q4H PRN. * CV prophylaxis - Aspirin 81MG daily, start 05/15/2020. * Osteoarthritis - Celebrex 200MG daily. * Allergic Rhinitis - Fluticasone nasal spray 2 sprays nasal daily. * Rash - Hytone 2.5% cream topical daily. * Hypothyroidism - Levothyroxine 75MCG daily. * Hypertension - Lisinopril 5MG daily. * Anxiety - Lorazepam 0.5MG TID. * Dizziness - Meclizine 12.5MG daily PRN. * Nutrition - MVI daily. * Nausea - Phenergan 25MG Q8H PRN. * Muscle spasm - Tizanidine 4MG TID. * Opioid dependence - She was on Butrans 20mcg patch per week, change to Fentanyl 12MCG 1 patch TD Q72H.
[2020-05-01] MEDS: APIXABAN 2.5 MG TABLET PO (22:03)
[2020-05-01] MEDS: oxyCODONE 5 MG Tablet 10 MG PO (22:07)
[2020-05-01] MEDS: Acetaminophen 500 MG Tablet 1000 MG PO (22:09)
[2020-05-01 22:44] VITALS: BMI 29.1
[2020-05-01] MEDS: LORazepam 0.5 MG Tablet PO (23:47)
--- NOTE | 2020-05-01 23:55 | NURSING ---
Bupremorphine patch on rt upper thigh removed and disposed of in rx destroyer . witnessed by Fidel mcqueen
[2020-05-02] MEDS: oxyCODONE 5 MG Tablet 10 MG PO ×3 (02:02→18:04)
[2020-05-02] MEDS: Acetaminophen 500 MG Tablet 1000 MG PO ×3 (05:39→22:10)
[2020-05-02] MEDS: Levothyroxine 75 MCG Tablet PO (05:40)
[2020-05-02] MEDS: LORazepam 0.5 MG Tablet PO ×3 (05:40→22:08)
[2020-05-02] MEDS: Hydrocortisone 2.5% Crm 1 APPLIC TOPICAL (05:41)
[2020-05-02 05:46] VITALS: BP 153/72; PULSE 90; RESP 16; TEMP 37.2; O2SAT 98
[2020-05-02 06:00] LABS: Absolute Lymphocyte Count 0.92 X10^3/uL (0.83-4.51); Absolute Neutrophil Count 4.6 X10^3/uL (2.0-7.7); Basophil# 0.01 X10^3/uL; Basophil% 0.2 % (0-1); Eosinophil# 0.01 X10^3/uL; Eosinophils% 0.2 % (0-5); Hemoglobin 8.2 g/dL (12.0-15.0); Lymphocyte # 0.92 X10^3/ul (4.0); Lymphocyte % 13.9 % (19-41); Mean Corp Hgb Conc 31.5 g/dL (32-36); Mean Corpuscular Hgb 28.9 pg (27.0-32.0); Mean Corpuscular Volume 91.5 fL (81-99); Mean Platelet Vol. 9.2 fl (6.2-12.0); Monocyte# 1.11 X10^3/uL; Monocyte% 16.7 % (0-10); NRBC Flagged by Analyzer 0 % (0-5); Neutrophil # 4.56 X10^3/uL (2.7-7.7); Neutrophil % 68.5 % (47-70); Platelet Count 179 K/mm3 (150-450); RBC Distribution Width CV 13.6 % (11.6-14.6); RBC Distribution Width SD 44.7 fl (35.1-43.9); Red Blood Count 2.84 M/mm3 (4.2-5.4); White Blood Count 6.6 K/mm3 (4.4-11.0)
[2020-05-02 06:15] LABS: Anion Gap 5 (5-15); BUN 14 mg/dL (7-18); BUN/Creat Ratio 18.7 RATIO (10-20); Calcium,Total 7.9 mg/dL (8.5-10.1); Chloride 104 mmol/L (98-107); Creatinine, Serum 0.75 mg/dL (0.55-1.02); EST Glomerular Filtration Rate 83 mL/min (>60); Est Glom Filt Rate - Afr Amer 101 mL/min (>60); Estimated Creatinine Clearance 69.09 ml/min; Glucose 100 mg/dL (74-106); Potassium 4.2 mmol/L (3.5-5.1); Sodium Level 139 mmol/L (136-145)
[2020-05-02] MEDS: Celecoxib 200 MG Capsule PO (07:48)
[2020-05-02] MEDS: APIXABAN 2.5 MG TABLET PO ×2 (07:48→20:38)
[2020-05-02] MEDS: Psyllium 1 PACKET PO ×2 (07:49→20:38)
[2020-05-02] MEDS: Fluticasone 0.05% 1 SPRAY NASAL.SRY 2 SPRAY NASAL (07:50)
[2020-05-02] MEDS: Polyethylene Glycol 3350 17 GM PACKET PO (07:51)
[2020-05-02] MEDS: tiZANidine HCl 2 MG Tablet 4 MG PO ×3 (07:51→22:08)
[2020-05-02] MEDS: Senna/Docusate Sodium 1 Tablet 2 TABLET PO ×2 (07:51→20:39)
[2020-05-02] MEDS: Multivitamins,Therapeutic Tablet 1 TABLET PO (07:51)
[2020-05-02] MEDS: Lisinopril 5 MG Tablet PO (07:52)
[2020-05-02] MEDS: Iron Polysaccharide Complex 150 MG CAPSULE PO (09:17)
[2020-05-02] MEDS: Tuberculin,Purif.prot.deriv. 50 TU/ML Vial 5 ML ID (10:02)
[2020-05-02] MEDS: Acetaminophen 500 MG Tablet PO (12:21)
[2020-05-02] MEDS: proMETHazine 25 MG Tablet PO (13:15)
--- NOTE | 2020-05-02 14:11 | PCM.PN.RX ---
<Eric Martini - Last Filed: 05/02/20 14:11> Progress Note - Pharmacy Subjective: TCU Admission Objective: Allergies lithium Allergy (Mild, Verified 04/30/20 09:35) Vomiting aspartame Allergy (Verified 04/30/20 09:35) Itching carrot Allergy (Verified 05/02/20 13:52) Food Allergy ciclesonide [From Alves[place]] Allergy (Verified 04/30/20 09:35) Shortness of breath diphenhydramine HCl [From Benadryl] Allergy (Verified 04/30/20 09:35) Rash imipramine Allergy (Verified 04/30/20 09:35) Other levofloxacin [From Levaquin] Allergy (Verified 04/30/20 09:35) Itching onabotulinumtoxinA [From Botox] Allergy (Verified 04/30/20 09:35) Itching Penicillins Allergy (Verified 04/30/20 09:35) Rash topiramate [From Topamax] Allergy (Verified 04/30/20 09:35) Other sertraline [From Zoloft] Adverse Reaction (Verified 04/30/20 09:35) serotoin syndrome Current Medications Generic Name Dose Route Start Last Admin Trade Name Freq PRN Reason Stop Dose Admin Acetaminophen 500 mg 05/01/20 19:52 05/02/20 12:21 Tylenol PO 500 mg Q6H PRN PRN Administration Pain Score 1-3/10 Acetaminophen 1,000 mg 05/01/20 22:00 05/02/20 05:39 Tylenol PO 1,000 mg Q8 ROSLYN Administration Albuterol Sulfate 2.5 mg 05/01/20 20:18 Ventolin Aerosols INHALATION Q4H PRN PRN SOB/WHEEZE Apixaban 2.5 mg 05/02/20 08:00 05/02/20 07:48 Eliquis PO 05/14/20 20:01 2.5 mg 08,1999 [facility] Administration Aspirin 81 mg 05/15/20 08:00 Aspirin, Baby PO DAILYCM ROSLYN Bisacodyl 10 mg 05/01/20 21:30 Dulcolax RECTAL DAILY PRN Constipation Celecoxib 200 mg 05/02/20 08:00 05/02/20 07:48 Celebrex PO 200 mg DAILY@0800 [facility] Administration Fentanyl 12 mcg 05/02/20 09:00 05/02/20 09:53 Duragesic Patch TRANSDERM. 12 mcg Q3D [facility] Administration Fluticasone Propionate 2 spray 05/02/20 08:00 05/02/20 07:50 Flonase Nasal [place] NASAL 2 spray DAILY@0800 [facility] Administration Hydrocortisone 1 applic 05/02/20 06:00 05/02/20 05:41 Hytone TOPICAL 1 applicatio DAILY [facility] Administration Levothyroxine Sodium 75 mcg 05/02/20 06:00 05/02/20 05:40 Synthroid PO 75 mcg DAILY@0600 [facility] Administration Lisinopril 5 mg 05/02/20 08:00 05/02/20 07:52 Zestril PO 5 mg DAILY@08 [facility] Administration Lorazepam 0.5 mg 05/01/20 22:00 05/02/20 05:40 Ativan PO 0.5 mg TID [facility] Administration Meclizine HCl 12.5 mg 05/01/20 19:52 Antivert PO DAILY PRN PRN Vertigo and motion sickness Multivitamins 1 tablet 05/02/20 08:00 05/02/20 07:51 Multivitamin PO 1 tablet DAILY@08 [facility] Administration Oxycodone HCl 10 mg 05/01/20 21:30 05/02/20 07:46 Oxyir PO 10 mg Q4H PRN PRN Administration Pain Score 4-10/10 Polyethylene Glycol 17 gm 05/02/20 08:00 05/02/20 07:51 Miralax PO 17 gm DAILY@0800 [facility] Administration Polysaccharide Iron Complex 150 mg 05/02/20 08:00 05/02/20 09:17 Ferrex 150 PO 150 mg DAILYCM [facility] Administration Promethazine HCl 25 mg 05/01/20 19:52 05/02/20 13:15 Phenergan Tablet PO 25 mg Q8H PRN PRN Administration NAUSEA Psyllium Hydrophilic Mucilloid 1 packet 05/02/20 08:00 05/02/20 07:49 Metamucil PO 1 packet [facility] Administration Senna/Docusate Sodium 2 tablet 05/02/20 08:00 05/02/20 07:51 Senokot-S, [place]-Colace PO 2 tablet [facility] Administration Tizanidine HCl 4 mg 05/02/20 14:00 Zanaflex PO TID ROSLYN Tuberculin PPD 5 tu 05/09/20 10:00 Tubersol, Aplisol, Ppd ID 05/09/20 10:01 X1 ONE Problem List (Last Updated 12/01/18 @ 13:44 by Suresh Escobar) Debility (Acute) Osteoarthritis of left knee (Chronic) Bipolar disorder (Chronic) Cerebral palsy (Chronic) Fibromyalgia (Chronic) Allergic rhinitis (Chronic) Muscle spasm (Chronic) Hypothyroidism (Chronic) Hypertension (Chronic) Fecal impaction (Acute) Vitamin B12 deficiency (Acute) Opioid dependence (Acute) Anxiety (Acute) Benzodiazepine dependence (Acute) Dizziness (Acute) Nausea (Acute) Vital Signs Temp Pulse Resp BP Pulse Ox 99 F 90 16 153/72 H 98 05/02/20 05:46 05/02/20 05:46 05/02/20 05:46 05/02/20 05:46 05/02/20 05:46 Oxygen Delivery Method Room Air Weight: 79.407 kg Body Mass Index (BMI) 29.1 Sodium 139 mmol/L (136-145) 05/02/20 05:15 Potassium 4.2 mmol/L (3.5-5.1) 05/02/20 05:15 Chloride 104 mmol/L (98-107) 05/02/20 05:15 Carbon Dioxide 30.0 mmol/L (21.0-32.0) 05/02/20 05:15 Anion Gap 5 (5-15) 05/02/20 05:15 BUN 14 mg/dL (7-18) 05/02/20 05:15 Creatinine 0.75 mg/dL (0.55-1.02) 05/02/20 05:15 Est GFR (MDRD) Af Amer 101 mL/min (>60) 05/02/20 05:15 Est GFR (MDRD) Non-Af 83 mL/min (>60) 05/02/20 05:15 BUN/Creatinine Ratio 18.7 RATIO (10-20) 05/02/20 05:15 Glucose 100 mg/dL (74-106) 05/02/20 05:15 Assessment/Plan: 1. Pain/opioid dependence: acetaminophen 1000mg PO Q8H, acetaminophen 500mg Q6H PRN pain 1-3/10, oxycodone 10mg PO Q4H PRN pain 4-10/10 and fentanyl patch 12mcg every 3 days. Please continue to monitor for pain, PRN usage, constipation and respiratory depression. Please do not give more than 4000mg of acetaminophen in 24 hours. Thanks. 2. DVT prophylaxis: apixaban 2.5mg PO BID thru 05/14/20. Please continue to monitor for S/S of bleeding/DVT, hemoglobin (last 8.5 g/dL) and renal function. 3. CV prophylaxis: aspirin 81mg PO DAILYCM starting 05/15/20. Please continue to monitor. 4. Hypothyroidism: levothyroxine 75mcg PO daily. Recent TSH in chart. Please continue to monitor for S/S of hypo/hyperthyroidism. 5. Hypertension: lisinopril 5mg PO daily. Last BP 155/79. Please continue to monitor BP, SCr, and potassium (last 4.2mmol/L). 6. Iron deficiency (hemoglobin 8.2g/dL): Ferrex 150mg PO DAILYCM. Please continue to monitor hemoglobin and for dark stools. 7. Osteoarthritis: celecoxib 200mg PO DAILYCM. Please continue to monitor for pain and S/S of bleeding. 8. Shortness of breath: albuterol nebulizer 2.5mg inhalation Q4H PRN SOB/wheezing. Please continue to monitor for shortness of breath and PRN usage. 9. Allergic rhinitis: fluticasone nasal spray 2 sprays nasal daily. Please continue to monitor for allergic rhinitis. 10. Dizziness: meclizine 12.5mg PO daily PRN vertigo and motion sickness. Please continue to monitor. 11. Nausea: promethazine 25mg PO Q8H PRN nausea. Please continue to monitor for nausea and PRN usage. 12. Muscle spasm: tizanidine 4mg PO TID. Please continue to monitor for muscle spasms and dizziness. 13. Nutrition: multivitamin 1T PO DAILYCM. Please continue to monitor. Psychotropic Medications: *1. Anxiety: lorazepam 0.5mg PO TID. Please consider a GDR by 11/2020 if clinically appropriate. Thanks. Unnecessary Medications: None Bowel Regimen: Miralax 17gm PO daily, psyllium 1 packet PO BID, senna/docusate 2T PO BID, and bisacodyl 10mg [place] daily PRN constipation. Please continue to monitor for constipation/diarrhea and PRN constipation. Date of Note:: 05/02/20 - Provider Comments Provider responsibility: Provider responsible to enter orders to implement recommendations <Alon Vargas Chi - Last Filed: 05/02/20 17:49> Progress Note - Pharmacy Subjective: [] Objective: Allergies lithium Allergy (Mild, Verified 04/30/20 09:35) Vomiting aspartame Allergy (Verified 04/30/20 09:35) Itching carrot Allergy (Verified 05/02/20 13:52) Food Allergy ciclesonide [From [place]ves[place]] Allergy (Verified 04/30/20 09:35) Shortness of breath diphenhydramine HCl [From Benadryl] Allergy (Verified 04/30/20 09:35) Rash imipramine Allergy (Verified 04/30/20 09:35) Other levofloxacin [From Levaquin] Allergy (Verified 04/30/20 09:35) Itching onabotulinumtoxinA [From Botox] Allergy (Verified 04/30/20 09:35) Itching Penicillins Allergy (Verified 04/30/20 09:35) Rash topiramate [From Topamax] Allergy (Verified 04/30/20 09:35) Other sertraline [From Zoloft] Adverse Reaction (Verified 04/30/20 09:35) serotoin syndrome Current Medications Generic Name Dose Route Start Last Admin Trade Name Freq PRN Reason Stop Dose Admin Acetaminophen 500 mg 05/01/20 19:52 05/02/20 12:21 Tylenol PO 500 mg Q6H PRN PRN Administration Pain Score 1-3/10 Acetaminophen 1,000 mg 05/01/20 22:00 05/02/20 14:49 Tylenol PO 1,000 mg Q8 ROSLYN Administration Albuterol Sulfate 2.5 mg 05/01/20 20:18 Ventolin Aerosols INHALATION Q4H PRN PRN SOB/WHEEZE Apixaban 2.5 mg 05/02/20 08:00 05/02/20 07:48 Eliquis PO 05/14/20 20:01 2.5 mg 0800,1999 [facility] Administration Aspirin 81 mg 05/15/20 08:00 Aspirin, Baby PO DAILYCM [facility] Bisacodyl 10 mg 05/01/20 21:30 Dulcolax RECTAL DAILY PRN Constipation Celecoxib 200 mg 05/02/20 08:00 05/02/20 07:48 Celebrex PO 200 mg DAILY@0800 [facility] Administration Fentanyl 12 mcg 05/02/20 09:00 05/02/20 09:53 Duragesic Patch TRANSDERM. 12 mcg Q3D [facility] Administration Fluticasone Propionate 2 spray 05/02/20 08:00 05/02/20 07:50 Flonase Nasal [place] NASAL 2 spray DAILY@0800 [facility] Administration Hydrocortisone 1 applic 05/02/20 06:00 05/02/20 05:41 Hytone TOPICAL 1 applicatio DAILY [facility] Administration Levothyroxine Sodium 75 mcg 05/02/20 06:00 05/02/20 05:40 Synthroid PO 75 mcg DAILY@06 [facility] Administration Lisinopril 5 mg 05/02/20 08:00 05/02/20 07:52 Zestril PO 5 mg DAILY@08 [facility] Administration Lorazepam 0.5 mg 05/01/20 22:00 05/02/20 14:45 Ativan PO 0.5 mg TID [facility] Administration Meclizine HCl 12.5 mg 05/01/20 19:52 Antivert PO DAILY PRN PRN Vertigo and motion sickness Multivitamins 1 tablet 05/02/20 08:00 05/02/20 07:51 Multivitamin PO 1 tablet DAILY@08 [facility] Administration Oxycodone HCl 10 mg 05/01/20 21:30 05/02/20 07:46 Oxyir PO 10 mg Q4H PRN PRN Administration Pain Score 4-10/10 Polyethylene Glycol 17 gm 05/02/20 08:00 05/02/20 07:51 Miralax PO 17 gm DAILY@0800 [facility] Administration Polysaccharide Iron Complex 150 mg 05/02/20 08:00 05/02/20 09:17 Ferrex 150 PO 150 mg DAILYCM [facility] Administration Promethazine HCl 25 mg 05/01/20 19:52 05/02/20 13:15 Phenergan Tablet PO 25 mg Q8H PRN PRN Administration NAUSEA Psyllium Hydrophilic Mucilloid 1 packet 05/02/20 08:00 05/02/20 07:49 Metamucil PO 1 packet [facility] Administration Senna/Docusate Sodium 2 tablet 05/02/20 08:00 05/02/20 07:51 Senokot-S, [place]-Colace PO 2 tablet ROSLYN Administration Tizanidine HCl 4 mg 05/02/20 14:00 05/02/20 14:50 Zanaflex PO 4 mg TID ROSLYN Administration Tuberculin PPD 5 tu 05/09/20 10:00 Tubersol, Aplisol, Ppd ID 05/09/20 10:01 X1 ONE Problem List (Last Updated 12/01/18 @ 13:44 by Suresh Escobar) Debility (Acute) Osteoarthritis of left knee (Chronic) Bipolar disorder (Chronic) Cerebral palsy (Chronic) Fibromyalgia (Chronic) Allergic rhinitis (Chronic) Muscle spasm (Chronic) Hypothyroidism (Chronic) Hypertension (Chronic) Fecal impaction (Acute) Vitamin B12 deficiency (Acute) Opioid dependence (Acute) Anxiety (Acute) Benzodiazepine dependence (Acute) Dizziness (Acute) Nausea (Acute) Vital Signs Temp Pulse Resp BP Pulse Ox 99.1 F 93 16 155/79 H 100 05/02/20 14:17 05/02/20 14:17 05/02/20 14:17 05/02/20 14:17 05/02/20 14:17 Oxygen Delivery Method Room Air Weight: 79.407 kg Body Mass Index (BMI) 29.1 Sodium 139 mmol/L (136-145) 05/02/20 05:15 Potassium 4.2 mmol/L (3.5-5.1) 05/02/20 05:15 Chloride 104 mmol/L (98-107) 05/02/20 05:15 Carbon Dioxide 30.0 mmol/L (21.0-32.0) 05/02/20 05:15 Anion Gap 5 (5-15) 05/02/20 05:15 BUN 14 mg/dL (7-18) 05/02/20 05:15 Creatinine 0.75 mg/dL (0.55-1.02) 05/02/20 05:15 Est GFR (MDRD) Af Amer 101 mL/min (>60) 05/02/20 05:15 Est GFR (MDRD) Non-Af 83 mL/min (>60) 05/02/20 05:15 BUN/Creatinine Ratio 18.7 RATIO (10-20) 05/02/20 05:15 Glucose 100 mg/dL (74-106) 05/02/20 05:15 Assessment/Plan: Psychotropic Medications: Unnecessary Medications: Bowel Regimen: - Provider Comments Provider responsibility: Provider responsible to enter orders to implement recommendations Provider Comments to Recommendations by Pharmacy: Agree
[2020-05-02 14:17] VITALS: BP 155/79; PULSE 93; RESP 16; TEMP 37.3; O2SAT 100
[2020-05-03] MEDS: oxyCODONE 5 MG Tablet 10 MG PO ×4 (02:13→23:52)
[2020-05-03 02:20] VITALS: BP 151/75; PULSE 79; RESP 20; TEMP 37; O2SAT 96
--- NOTE | 2020-05-03 02:23 | NURSING ---
0215- Pt up to restroom to void. States she feels shaky. Pt does have some tremors at baseline. Blood glucose checked at 109. Vital signs completed. Pt c/o pain to LLE and PRN oxyIR administered. Pt returned to bed and polar care applied to LLE. Call light within reach.
[2020-05-03 02:26] LABS: Bedside Glucose 109 mg/dL (70-110)
[2020-05-03] MEDS: Levothyroxine 75 MCG Tablet PO (06:35)
[2020-05-03] MEDS: Acetaminophen 500 MG Tablet 1000 MG PO ×3 (06:36→20:38)
[2020-05-03] MEDS: tiZANidine HCl 2 MG Tablet 4 MG PO ×4 (06:37→20:38)
[2020-05-03] MEDS: LORazepam 0.5 MG Tablet PO ×3 (06:41→20:38)
--- NOTE | 2020-05-03 06:42 | NURSING ---
Duragesic noted on rt upper chest.
[2020-05-03] MEDS: Iron Polysaccharide Complex 150 MG CAPSULE PO (07:44)
[2020-05-03] MEDS: Multivitamins,Therapeutic Tablet 1 TABLET PO (07:44)
[2020-05-03] MEDS: Senna/Docusate Sodium 1 Tablet 2 TABLET PO ×2 (07:44→20:38)
[2020-05-03] MEDS: Psyllium 1 PACKET PO ×2 (07:44→20:39)
[2020-05-03] MEDS: Lisinopril 5 MG Tablet PO (07:44)
[2020-05-03] MEDS: Celecoxib 200 MG Capsule PO (07:44)
[2020-05-03] MEDS: APIXABAN 2.5 MG TABLET PO ×2 (07:44→20:40)
[2020-05-03] MEDS: Polyethylene Glycol 3350 17 GM PACKET PO (07:44)
[2020-05-03] MEDS: Fluticasone 0.05% 1 SPRAY NASAL.SRY 2 SPRAY NASAL (07:47)
[2020-05-03] MEDS: Hydrocortisone 2.5% Crm 1 APPLIC TOPICAL (10:06)
[2020-05-03] MEDS: Meclizine 12.5 MG Tablet PO (13:20)
[2020-05-03] MEDS: proMETHazine 25 MG Tablet PO (14:07)
[2020-05-03 15:09] VITALS: BP 119/50; PULSE 79; RESP 14; TEMP 37.3; O2SAT 97
--- NOTE | 2020-05-03 15:36 | CHAPLAIN ---
Type of Pastoral Visit _x__ Initial Visit ___ Follow-up Visit ___ On-call Visit ___ General Patient Visit ___ Spiritual Assessment ___ Family Conference ___ Bereavement ___ Rapid Response ___ Code Blue ___ Other (describe below) Pastoral Care Referral From _x__ Patient ___ Family ___ Nurse ___ Physician ___ Molded Goods Operator ___ Emergency Room Nurse ___ Other (describe below) Sacrament/Intervention _x__ Active listening ___ Anointing ___ Samaritan ___ Bereavement ___ Communion _x__ Patricia exploration ___ ___ Life review _x__ Prayer ___ Reconciliation ___ Sacrament of Sick _x__ Supportive presence ___ Wedding ___ Other (describe below) Pastoral Comments patient is talkative and gives health history and some family background; pt would like to write her cards but unable to at this time so she has disappointment with that; however pt states that everything is going well for recovery and she has no further needs; pt would request future visits with the wafer production lead worker; prayer welcomed
[2020-05-04] MEDS: oxyCODONE 5 MG Tablet 10 MG PO ×4 (04:10→22:39)
[2020-05-04 04:12] VITALS: BP 162/73; PULSE 93; RESP 16; TEMP 37.5; O2SAT 97
--- NOTE | 2020-05-04 04:56 | NURSING ---
Duragesic patch noted to left chest.
[2020-05-04] MEDS: Levothyroxine 75 MCG Tablet PO (06:13)
[2020-05-04] MEDS: tiZANidine HCl 2 MG Tablet 4 MG PO ×4 (06:13→20:48)
[2020-05-04] MEDS: proMETHazine 25 MG Tablet PO (06:13)
[2020-05-04] MEDS: Acetaminophen 500 MG Tablet 1000 MG PO ×3 (06:13→20:49)
[2020-05-04] MEDS: LORazepam 0.5 MG Tablet PO ×3 (06:13→20:48)
[2020-05-04] MEDS: Hydrocortisone 2.5% Crm 1 APPLIC TOPICAL (06:16)
[2020-05-04 06:19] LABS: Hematocrit 27.7 % (37-47); Hemoglobin 8.8 g/dL (12.0-15.0)
[2020-05-04] MEDS: APIXABAN 2.5 MG TABLET PO ×2 (08:53→20:14)
[2020-05-04] MEDS: Celecoxib 200 MG Capsule PO (08:54)
[2020-05-04] MEDS: Iron Polysaccharide Complex 150 MG CAPSULE PO (08:54)
[2020-05-04] MEDS: Multivitamins,Therapeutic Tablet 1 TABLET PO (08:54)
[2020-05-04] MEDS: Senna/Docusate Sodium 1 Tablet 2 TABLET PO ×2 (08:55→20:14)
[2020-05-04] MEDS: Lisinopril 5 MG Tablet PO (08:55)
[2020-05-04] MEDS: Psyllium 1 PACKET PO ×2 (08:56→20:13)
[2020-05-04] MEDS: Fluticasone 0.05% 1 SPRAY NASAL.SRY 2 SPRAY NASAL (08:56)
[2020-05-04] MEDS: Polyethylene Glycol 3350 17 GM PACKET PO (08:56)
[2020-05-04 14:05] VITALS: BP 90/42; PULSE 74; RESP 18; TEMP 36.9; O2SAT 99
[2020-05-05] MEDS: oxyCODONE 5 MG Tablet 10 MG PO ×4 (03:25→23:28)
[2020-05-05 03:28] VITALS: BP 151/65; PULSE 85; RESP 14; TEMP 36.9; O2SAT 96
[2020-05-05] MEDS: LORazepam 0.5 MG Tablet PO ×3 (05:50→20:51)
[2020-05-05] MEDS: tiZANidine HCl 2 MG Tablet 4 MG PO ×4 (05:50→20:50)
[2020-05-05] MEDS: Acetaminophen 500 MG Tablet 1000 MG PO ×3 (05:50→20:51)
[2020-05-05] MEDS: Levothyroxine 75 MCG Tablet PO (05:50)
[2020-05-05] MEDS: Celecoxib 200 MG Capsule PO (07:42)
[2020-05-05] MEDS: Senna/Docusate Sodium 1 Tablet 2 TABLET PO ×2 (07:42→20:51)
[2020-05-05] MEDS: APIXABAN 2.5 MG TABLET PO ×2 (07:43→20:51)
[2020-05-05] MEDS: Iron Polysaccharide Complex 150 MG CAPSULE PO (07:43)
[2020-05-05] MEDS: Lisinopril 5 MG Tablet PO (07:43)
[2020-05-05] MEDS: Multivitamins,Therapeutic Tablet 1 TABLET PO (07:43)
[2020-05-05] MEDS: Polyethylene Glycol 3350 17 GM PACKET PO (07:44)
[2020-05-05] MEDS: Fluticasone 0.05% 1 SPRAY NASAL.SRY 2 SPRAY NASAL (07:44)
[2020-05-05] MEDS: Psyllium 1 PACKET PO ×2 (07:45→20:50)
[2020-05-05 14:24] VITALS: PULSE 82; RESP 20; TEMP 37.2; O2SAT 99
[2020-05-05 18:02] VITALS: BP 139/66
[2020-05-05] MEDS: proMETHazine 25 MG Tablet PO (18:16)
--- NOTE | 2020-05-05 18:57 | NURSING ---
Pt requested prn phenergan d/t nausea/vomiting. Upon entering room pt, this nurse heard pt in bathroom, when opening the door resident sat up from hovering over the trashcan and was observed wiping her finger off with toilet paper. Staff has been updated to stay with pt when vomiting.
[2020-05-06] MEDS: Acetaminophen 500 MG Tablet PO (01:36)
[2020-05-06] MEDS: proMETHazine 25 MG Tablet PO ×2 (04:58→14:47)
[2020-05-06 04:59] VITALS: BP 138/86; PULSE 75; RESP 16; TEMP 37.5; O2SAT 99
--- NOTE | 2020-05-06 06:20 | NURSING ---
Patient c/o of nausea. Phenergan given per order. Patient request for meds to be given later, d/t still not feeling well. RN aware.
[2020-05-06] MEDS: tiZANidine HCl 2 MG Tablet 4 MG PO ×4 (07:41→21:58)
[2020-05-06] MEDS: Acetaminophen 500 MG Tablet 1000 MG PO (07:41)
[2020-05-06] MEDS: LORazepam 0.5 MG Tablet PO ×3 (07:41→21:53)
--- NOTE | 2020-05-06 07:45 | NURSING ---
Pt refused all 6a/8a medications except for scheduled Ativan, Tylenol, zanaflex c/o upset stomach, GI issues. Education provided with no effect, adalid kathleen and crackers given, will continue to monitor.
[2020-05-06 13:51] VITALS: BP 156/92; PULSE 75; RESP 17; TEMP 36.4; O2SAT 95
[2020-05-06] MEDS: HYDROcodone Bitartrate/Apap 5/325 Tablet PO ×2 (14:47→21:53)
[2020-05-06] MEDS: DICLOFENAC SODIUM 100 GM GEL..GRAM. TP ×2 (16:39→21:59)
[2020-05-06] MEDS: Psyllium 1 PACKET PO (21:03)
[2020-05-06] MEDS: APIXABAN 2.5 MG TABLET PO (21:03)
[2020-05-06] MEDS: Senna/Docusate Sodium 1 Tablet 2 TABLET PO (21:05)
--- NOTE | 2020-05-07 01:00 | NURSING ---
Duragesic noted to right chest
[2020-05-07] MEDS: HYDROcodone Bitartrate/Apap 5/325 Tablet PO ×5 (02:10→21:08)
[2020-05-07 06:45] VITALS: BP 146/96; PULSE 84; RESP 16; TEMP 37.2; O2SAT 95
[2020-05-07] MEDS: LORazepam 0.5 MG Tablet PO ×3 (06:46→21:15)
[2020-05-07] MEDS: tiZANidine HCl 2 MG Tablet 4 MG PO ×4 (06:47→21:07)
[2020-05-07] MEDS: Levothyroxine 75 MCG Tablet PO (06:47)
[2020-05-07] MEDS: Hydrocortisone 2.5% Crm 1 APPLIC TOPICAL (06:52)
[2020-05-07] MEDS: DICLOFENAC SODIUM 100 GM GEL..GRAM. TP ×3 (06:53→21:15)
[2020-05-07] MEDS: Celecoxib 200 MG Capsule PO (08:10)
[2020-05-07] MEDS: Iron Polysaccharide Complex 150 MG CAPSULE PO (08:11)
[2020-05-07] MEDS: APIXABAN 2.5 MG TABLET PO ×2 (08:20→21:06)
[2020-05-07] MEDS: Multivitamins,Therapeutic Tablet 1 TABLET PO (08:21)
[2020-05-07] MEDS: Fluticasone 0.05% 1 SPRAY NASAL.SRY 2 SPRAY NASAL (08:21)
[2020-05-07] MEDS: Senna/Docusate Sodium 1 Tablet 2 TABLET PO ×2 (08:22→21:07)
[2020-05-07] MEDS: Psyllium 1 PACKET PO ×2 (08:22→21:06)
[2020-05-07] MEDS: Lisinopril 5 MG Tablet PO (08:23)
[2020-05-07] MEDS: Meclizine 12.5 MG Tablet PO (10:21)
--- NOTE | 2020-05-07 13:06 | CASEMGMT ---
Social Work Met patient to follow up on psychosocial needs and discharge planning. Pt expressed she is doing well, pleased to continue getting therapy until her 21st day. Pt will return to [facility]. Offered continued visits. Will continue to follow. Yari Looney MSW BLANKET WASHER
[2020-05-07 14:06] VITALS: BP 118/71; PULSE 70; RESP 16; TEMP 36.9; O2SAT 97
[2020-05-08] MEDS: HYDROcodone Bitartrate/Apap 5/325 Tablet PO ×3 (01:52→11:35)
[2020-05-08] MEDS: LORazepam 0.5 MG Tablet PO ×3 (05:12→20:40)
[2020-05-08] MEDS: Hydrocortisone 2.5% Crm 1 APPLIC TOPICAL (05:12)
[2020-05-08] MEDS: tiZANidine HCl 2 MG Tablet 4 MG PO ×4 (05:12→20:40)
[2020-05-08] MEDS: Levothyroxine 75 MCG Tablet PO (05:12)
[2020-05-08 05:15] VITALS: BP 161/81; PULSE 82; RESP 18; TEMP 37.1; O2SAT 98
[2020-05-08] MEDS: DICLOFENAC SODIUM 100 GM GEL..GRAM. TP ×3 (08:16→20:40)
[2020-05-08] MEDS: Iron Polysaccharide Complex 150 MG CAPSULE PO (08:17)
[2020-05-08] MEDS: Multivitamins,Therapeutic Tablet 1 TABLET PO (08:17)
[2020-05-08] MEDS: Psyllium 1 PACKET PO (08:17)
[2020-05-08] MEDS: APIXABAN 2.5 MG TABLET PO ×2 (08:17→20:41)
[2020-05-08] MEDS: Celecoxib 200 MG Capsule PO (08:17)
[2020-05-08] MEDS: Senna/Docusate Sodium 1 Tablet 2 TABLET PO ×2 (08:18→20:41)
[2020-05-08] MEDS: Lisinopril 5 MG Tablet PO (08:18)
[2020-05-08] MEDS: Fluticasone 0.05% 1 SPRAY NASAL.SRY 2 SPRAY NASAL (08:20)
[2020-05-08] MEDS: proMETHazine 25 MG Tablet PO (09:07)
--- NOTE | 2020-05-08 10:23 | CASEMGMT ---
Social Work IDT met with patient and friend via conference call for care plan meeting. Discussed patient's progress in therapy. Pt is improving with ROM in left knee to 93 degrees, using 1.5# wts for exercises, CO for bed mobility and transfers with RW, ambulating 50-80 ft with RW, up adlib in room, CO for toileting, dressing and set up fro showers/bathing. Pt is self-directed with activities, will continue with 1:1 visits. Pt is on a regular diet, intake variable, and lost weight which is desirable. Pt is out of room isolation 05/15, padmini removed 05/13, and adjusted pain meds. Explained Medicare insurance with Medicaid secondary. PT requesting to continue to work on strength and ROM and is agreeable to DC by day 21 back to [facility]. Will continue to follow. MARIAN DallasW
--- NOTE | 2020-05-08 11:06 | NURSING ---
Duragesic noted to right chest
--- NOTE | 2020-05-08 12:34 | NURSING ---
Addendum entered by Gloria Kim 05/08/20 16:39: pt has been sleeping in bed all afternoon, no c/o of stomach issues or pain, will assess patient when awake at dinner Correction: Requesting miralax in morning instead of Metamucil Original Note: pt sitting on toilet dry heaving in trash can or holding emesis bag while in chair, stating she threw up brkfst and metamucil , now requesting Miralax in morning instead of Miralax, does not want iron tabs any longer and requesting B12 meds daily, Dr cavazos will be made aware, refused to eat lunch but did eat jello.
[2020-05-08 14:30] VITALS: BP 138/74; PULSE 80; RESP 20; TEMP 37.2; O2SAT 99
[2020-05-08] MEDS: traMADol 50 MG Tablet 100 MG PO (18:59)
[2020-05-08] MEDS: Cyanocobalamin 500 MCG Tablet 1000 MCG PO (20:42)
[2020-05-09] MEDS: traMADol 50 MG Tablet 100 MG PO ×4 (01:47→22:00)
[2020-05-09 04:43] VITALS: PULSE 71; RESP 16; TEMP 37.4; O2SAT 99
[2020-05-09] MEDS: proMETHazine 25 MG Tablet PO ×2 (04:43→13:50)
[2020-05-09 05:46] LABS: Absolute Lymphocyte Count 1.32 X10^3/uL (0.83-4.51); Absolute Neutrophil Count 5.4 X10^3/uL (2.0-7.7); Basophil# 0.04 X10^3/uL; Basophil% 0.5 % (0-1); Eosinophil# 0.11 X10^3/uL; Eosinophils% 1.4 % (0-5); Hematocrit 30.9 % (37-47); Hemoglobin 9.9 g/dL (12.0-15.0); Lymphocyte # 1.32 X10^3/ul (4.0); Lymphocyte % 17.3 % (19-41); Mean Corpuscular Hgb 29.4 pg (27.0-32.0); Mean Corpuscular Volume 91.7 fL (81-99); Mean Platelet Vol. 8.5 fl (6.2-12.0); Monocyte# 0.77 X10^3/uL; Monocyte% 10.1 % (0-10); NRBC Flagged by Analyzer 0 % (0-5); Neutrophil # 5.37 X10^3/uL (2.7-7.7); Neutrophil % 70.2 % (47-70); Platelet Count 371 K/mm3 (150-450); RBC Distribution Width CV 14.3 % (11.6-14.6); RBC Distribution Width SD 45.4 fl (35.1-43.9); Red Blood Count 3.37 M/mm3 (4.2-5.4); White Blood Count 7.7 K/mm3 (4.4-11.0)
[2020-05-09 06:09] LABS: Anion Gap 7 (5-15); BUN 6 mg/dL (7-18); BUN/Creat Ratio 7.6 RATIO (10-20); Calcium,Total 8.6 mg/dL (8.5-10.1); Chloride 106 mmol/L (98-107); Creatinine, Serum 0.79 mg/dL (0.55-1.02); EST Glomerular Filtration Rate 78 mL/min (>60); Est Glom Filt Rate - Afr Amer 95 mL/min (>60); Estimated Creatinine Clearance 65.59 ml/min; Glucose 99 mg/dL (74-106); Potassium 2.9 mmol/L (3.5-5.1); Sodium Level 138 mmol/L (136-145)
--- NOTE | 2020-05-09 07:03 | NURSING ---
Patient refusing medications d/t having emesis. Phenergan given earlier, Patient states It's starting to work. Attempted x2 to administer medications. RN aware. Patient resting in bed at this time.
--- NOTE | 2020-05-09 07:10 | NURSING ---
Duragesic Patch noted to right chest.
[2020-05-09] MEDS: LORazepam 0.5 MG Tablet PO ×3 (08:24→21:40)
[2020-05-09] MEDS: APIXABAN 2.5 MG TABLET PO ×2 (08:26→21:39)
[2020-05-09] MEDS: Celecoxib 200 MG Capsule PO (08:26)
[2020-05-09] MEDS: Fluticasone 0.05% 1 SPRAY NASAL.SRY 2 SPRAY NASAL (08:27)
[2020-05-09] MEDS: Senna/Docusate Sodium 1 Tablet 2 TABLET PO (08:27)
[2020-05-09] MEDS: Multivitamins,Therapeutic Tablet 1 TABLET PO (08:27)
[2020-05-09] MEDS: Lisinopril 5 MG Tablet PO (08:28)
--- NOTE | 2020-05-09 10:15 | NURSING ---
Working with therapy. Complains of feeling nauseous. Dry heaving while doing therapy. Meclizine given to help alleviate symptoms. Resident questions if this is due to Fentanyl patch or pain meds or Baclofen. Will monitor effects of Meclizine.
[2020-05-09 10:29] LABS: Bacteria 0 SEEN /hpf (None Seen); Mucous, Urine 0 SEEN /hpf (<or=2+); Red Blood Cells-Urine 0 SEEN /hpf (0-5); Squamous Epithelial Cells - UA 0 SEEN /hpf (5-10); White Blood Cells 0 SEEN /hpf (0-5)
[2020-05-09 10:31] LABS: Color, Urine Yellow (Yellow); Glucose, Dipstick Normal (Normal); Ketone-Dipstick Negative (Negative); Leukocyte Esterase-Dipstick Negative /ul (Negative); Nitrite-Dipstick Negative (Negative); Occult Blood-Urine Negative /ul (Negative); Protein-Dipstick Negative (Negative); Specific Gravity, Urine 1.015 (1.002-1.030); Urine Bilirubin Dipstick Negative (Negative); Urine Clarity Sl. Cloudy (Clear); Urine Urobilinogen Normal (Normal)
[2020-05-09] MEDS: Meclizine 12.5 MG Tablet PO ×2 (10:34→21:46)
[2020-05-09] MEDS: tiZANidine HCl 2 MG Tablet 4 MG PO ×3 (11:55→21:43)
[2020-05-09] MEDS: Tuberculin,Purif.prot.deriv. 50 TU/ML Vial 5 ML ID (11:56)
--- NOTE | 2020-05-09 12:08 | NURSING ---
New duragesic patch applied to Lt shoulder. Old Duragesic put in RX destroyers container. Witnessed by Yuliya Hannon RN.
[2020-05-09] MEDS: DICLOFENAC SODIUM 100 GM GEL..GRAM. TP ×2 (13:51→21:41)
[2020-05-09 14:11] VITALS: BP 146/78; PULSE 75; RESP 18; TEMP 37.6; O2SAT 98
[2020-05-09] MEDS: Cyanocobalamin 500 MCG Tablet 1000 MCG PO (21:42)
[2020-05-10 04:00] VITALS: BP 181/74; PULSE 74; RESP 14; TEMP 36.8; O2SAT 96
[2020-05-10] MEDS: proMETHazine 25 MG Tablet PO ×2 (04:19→18:23)
[2020-05-10] MEDS: traMADol 50 MG Tablet 100 MG PO ×3 (04:19→21:18)
[2020-05-10] MEDS: LORazepam 0.5 MG Tablet PO ×3 (06:31→22:59)
[2020-05-10] MEDS: DICLOFENAC SODIUM 100 GM GEL..GRAM. TP ×3 (06:31→20:20)
[2020-05-10] MEDS: tiZANidine HCl 2 MG Tablet 4 MG PO ×4 (06:32→20:20)
[2020-05-10] MEDS: Levothyroxine 75 MCG Tablet PO (06:32)
--- NOTE | 2020-05-10 06:33 | NURSING ---
Duragesic noted on the left post. shoulder. pt requested to have removed, believes its making her sick. pt vomiting this morning, will continue to monitor.
[2020-05-10] MEDS: APIXABAN 2.5 MG TABLET PO ×2 (08:35→20:19)
[2020-05-10] MEDS: Celecoxib 200 MG Capsule PO (08:35)
[2020-05-10] MEDS: Polyethylene Glycol 3350 17 GM PACKET PO (08:36)
[2020-05-10] MEDS: Lisinopril 5 MG Tablet PO (08:36)
[2020-05-10] MEDS: Multivitamins,Therapeutic Tablet 1 TABLET PO (08:36)
[2020-05-10] MEDS: Fluticasone 0.05% 1 SPRAY NASAL.SRY 2 SPRAY NASAL (08:36)
--- NOTE | 2020-05-10 10:45 | MDS.RN ---
Information for the mds was obtained from review of the clinical record, interview of resident, staff, and direct observation of resident's care.
[2020-05-10 14:21] VITALS: BP 122/66; PULSE 67; RESP 18; TEMP 36.7; O2SAT 97
[2020-05-10] MEDS: Acetaminophen 500 MG Tablet 1000 MG PO ×2 (17:31→23:36)
[2020-05-10] MEDS: Cyanocobalamin 500 MCG Tablet 1000 MCG PO (20:19)
[2020-05-11] MEDS: Mag Hydrox/Al Hydrox/Simeth 30 ML UDC 15 ML PO (02:01)
[2020-05-11] MEDS: proMETHazine 25 MG Tablet PO (04:19)
[2020-05-11] MEDS: Levothyroxine 75 MCG Tablet PO (06:27)
[2020-05-11] MEDS: tiZANidine HCl 2 MG Tablet 4 MG PO ×4 (06:27→21:09)
[2020-05-11] MEDS: LORazepam 0.5 MG Tablet PO ×3 (06:27→21:07)
[2020-05-11] MEDS: DICLOFENAC SODIUM 100 GM GEL..GRAM. TP ×3 (06:28→21:10)
[2020-05-11] MEDS: Hydrocortisone 2.5% Crm 1 APPLIC TOPICAL (06:28)
[2020-05-11 06:32] VITALS: BP 188/93; PULSE 76; RESP 16; O2SAT 98
[2020-05-11] MEDS: Fluticasone 0.05% 1 SPRAY NASAL.SRY 2 SPRAY NASAL (07:59)
[2020-05-11] MEDS: APIXABAN 2.5 MG TABLET PO ×2 (07:59→21:09)
[2020-05-11] MEDS: Polyethylene Glycol 3350 17 GM PACKET PO (08:00)
[2020-05-11] MEDS: Acetaminophen 500 MG Tablet 1000 MG PO ×2 (08:01→23:58)
[2020-05-11] MEDS: Lisinopril 5 MG Tablet PO (08:01)
[2020-05-11] MEDS: Multivitamins,Therapeutic Tablet 1 TABLET PO (08:01)
[2020-05-11] MEDS: traMADol 50 MG Tablet 100 MG PO ×3 (08:02→21:07)
[2020-05-11 08:17] LABS: Anion Gap 11 (5-15); BUN 5 mg/dL (7-18); BUN/Creat Ratio 6.4 RATIO (10-20); Calcium,Total 8.4 mg/dL (8.5-10.1); Chloride 107 mmol/L (98-107); Creatinine, Serum 0.78 mg/dL (0.55-1.02); EST Glomerular Filtration Rate 79 mL/min (>60); Est Glom Filt Rate - Afr Amer 95 mL/min (>60); Estimated Creatinine Clearance 66.43 ml/min; Glucose 107 mg/dL (74-106); Potassium 3.5 mmol/L (3.5-5.1); Sodium Level 142 mmol/L (136-145)
[2020-05-11 14:38] VITALS: BP 164/79; PULSE 72; RESP 18; TEMP 36.6; O2SAT 98
[2020-05-11] MEDS: Senna/Docusate Sodium 1 Tablet 2 TABLET PO (21:08)
[2020-05-11] MEDS: Cyanocobalamin 500 MCG Tablet 1000 MCG PO (21:09)
[2020-05-11 23:50] VITALS: PULSE 70; RESP 16; O2SAT 97
[2020-05-12] MEDS: traMADol 50 MG Tablet 100 MG PO ×3 (03:36→16:41)
[2020-05-12] MEDS: LORazepam 0.5 MG Tablet PO ×3 (03:37→21:37)
[2020-05-12 03:39] VITALS: BP 185/60; PULSE 75; RESP 18; TEMP 37.1; O2SAT 99
[2020-05-12 05:58] VITALS: BP 183/90
[2020-05-12] MEDS: proMETHazine 25 MG Tablet PO (06:00)
[2020-05-12] MEDS: tiZANidine HCl 2 MG Tablet 4 MG PO ×4 (06:01→21:45)
[2020-05-12] MEDS: Levothyroxine 75 MCG Tablet PO (06:01)
[2020-05-12] MEDS: Hydrocortisone 2.5% Crm 1 APPLIC TOPICAL (06:03)
[2020-05-12] MEDS: Acetaminophen 500 MG Tablet 1000 MG PO ×2 (09:44→16:41)
[2020-05-12] MEDS: APIXABAN 2.5 MG TABLET PO ×2 (09:45→16:40)
[2020-05-12] MEDS: Fluticasone 0.05% 1 SPRAY NASAL.SRY 2 SPRAY NASAL (09:45)
[2020-05-12] MEDS: Lisinopril 5 MG Tablet PO (09:47)
[2020-05-12] MEDS: Multivitamins,Therapeutic Tablet 1 TABLET PO (09:47)
[2020-05-12 10:00] VITALS: PULSE 66; RESP 16; O2SAT 97
[2020-05-12] MEDS: DICLOFENAC SODIUM 100 GM GEL..GRAM. TP ×2 (14:24→21:48)
[2020-05-12 14:27] VITALS: BP 130/95; PULSE 81; RESP 14; TEMP 37; O2SAT 97
[2020-05-12] MEDS: Cyanocobalamin 500 MCG Tablet 1000 MCG PO (21:46)
--- NOTE | 2020-05-12 21:48 | NURSING ---
Addendum entered by Nuria Youngblood 05/13/20 06:35: Ave kathleen and saltine crackers given. Harris removed 24 from left leg per doctor order. 2 Abd pad applied to area per pt request no drainage or redness noted at this time. No concerns voiced during time. Original Note: Pt states,zanaflex and ativan help with the involuntary movements and helps settles stomach down. Pt c/o dry heaving off and on and not feeling good throughout the day. Told pt that she has prn phenergan but states, that doesn't help. States dry heaving and pain has affected her appetite and thinks if she should could try norco again to see if it would help, but not sure if that would even help in the same sentence. This pt nutritional intakes has been poorly with intakes since been here. Pt does has a order for prn tramadol and tylenol and has been taking them routinely. States tramadol help for about two hours the most but the ativan and zanaflex helps the most. Pt states stomach feels like it is raw and starting to cramp again. Pt states, if i could get a IV that would help me and I can't take zofran by mouth just IV only. Pt states that she would like to speak with the doctor so this nurse had her put on the doctors list. This nurse tried helping the pt with the problems she was stating, but she kept stating that wouldn't help. Rn made aware.
[2020-05-13] MEDS: Acetaminophen 500 MG Tablet 1000 MG PO ×4 (01:56→23:13)
[2020-05-13] MEDS: traMADol 50 MG Tablet 100 MG PO ×4 (01:56→23:13)
[2020-05-13 04:00] VITALS: BP 157/79; PULSE 88; RESP 18; TEMP 36.8; O2SAT 95
[2020-05-13] MEDS: LORazepam 0.5 MG Tablet PO ×3 (06:06→21:00)
[2020-05-13] MEDS: Levothyroxine 75 MCG Tablet PO (06:07)
[2020-05-13] MEDS: Hydrocortisone 2.5% Crm 1 APPLIC TOPICAL (06:07)
[2020-05-13] MEDS: tiZANidine HCl 2 MG Tablet 4 MG PO ×4 (06:07→21:00)
[2020-05-13] MEDS: proMETHazine 25 MG Tablet PO (06:14)
--- NOTE | 2020-05-13 06:15 | NURSING ---
This nurse went into pt room to administer morning medication as order. States, ultram and tylenol didn't help. Went to give morning meds and pt states, I don't feel well on my stomach'' I asked if she wanted phenergan she stated, no I don't know if it would help. As I was getting ready to leave room pt requested phenergan given at this time. Rn made aware.
[2020-05-13] MEDS: Fluticasone 0.05% 1 SPRAY NASAL.SRY 2 SPRAY NASAL (08:41)
[2020-05-13] MEDS: APIXABAN 2.5 MG TABLET PO ×2 (08:43→20:38)
[2020-05-13] MEDS: Polyethylene Glycol 3350 17 GM PACKET PO (08:43)
[2020-05-13] MEDS: Multivitamins,Therapeutic Tablet 1 TABLET PO (08:44)
[2020-05-13] MEDS: Lisinopril 5 MG Tablet PO (08:48)
[2020-05-13 08:55] VITALS: BP 139/73; PULSE 73
[2020-05-13] MEDS: Metoclopramide 10 MG Tablet PO ×3 (11:09→21:00)
--- NOTE | 2020-05-13 12:40 | CASEMGMT ---
Social Work Spoke with pt whom is requesting to DC 05/18 back to [facility]. Spoke with Cyrus at [place] - faxed updated clinicals and can have their therapy department continue with pt. They are not allowing HHC at this time. Pt requesting BSC - referral made to [facility] [place]. Friend to transport pt at [place]. Plan: DC to [facility] 05/18 with BSC. Yari Looney, TRADE RECRUITER SCRAP HOIST OPERATOR
[2020-05-13] MEDS: DICLOFENAC SODIUM 100 GM GEL..GRAM. TP ×2 (13:55→21:02)
--- NOTE | 2020-05-13 13:57 | NURSING ---
pt stated this nurse does not need to call family to give update.
[2020-05-13 14:17] VITALS: BP 141/58; PULSE 97; RESP 18; TEMP 37.1; O2SAT 99
--- NOTE | 2020-05-13 19:11 | PCM.DC ---
- Discharge Diagnoses Current Active Problems: Current Active and Chronic Problems (Last Updated 12/01/18 @ 13:44 by Suresh Escobar) Debility (Acute) Osteoarthritis of left knee (Chronic) Bipolar disorder (Chronic) Cerebral palsy (Chronic) Fibromyalgia (Chronic) Allergic rhinitis (Chronic) Muscle spasm (Chronic) Hypothyroidism (Chronic) Hypertension (Chronic) Fecal impaction (Acute) Vitamin B12 deficiency (Acute) Opioid dependence (Acute) Anxiety (Acute) Benzodiazepine dependence (Acute) Dizziness (Acute) Nausea (Acute) You will use the following diet at home:: No restrictions, Regular Your food should be the consistency of: Regular Your liquids should be the consistency of: Regular/Thin Discharge Activity: Return to Normal Activity, May Shower, Use Walker Weight Bearing Status: Weight bearing as tolerated Call your doctor if you observe: Fever of 101 or Higher, Inability to urinate, Inability to have a bowel movement, Shortness of breath, Chest pain, Uncontrolled pain Allergies/Adverse Reactions: Allergies lithium Allergy (Mild, Verified 04/30/20 09:35) Vomiting aspartame Allergy (Verified 04/30/20 09:35) Itching carrot Allergy (Verified 05/02/20 13:52) Food Allergy ciclesonide [From Alvesco] Allergy (Verified 04/30/20 09:35) Shortness of breath diphenhydramine HCl [From Benadryl] Allergy (Verified 04/30/20 09:35) Rash imipramine Allergy (Verified 04/30/20 09:35) Other levofloxacin [From Levaquin] Allergy (Verified 04/30/20 09:35) Itching onabotulinumtoxinA [From Botox] Allergy (Verified 04/30/20 09:35) Itching Penicillins Allergy (Verified 04/30/20 09:35) Rash topiramate [From Topamax] Allergy (Verified 04/30/20 09:35) Other sertraline [From Zoloft] Adverse Reaction (Verified 04/30/20 09:35) serotoin syndrome Medications to take at Discharge Fluticasone 0.05% [Flonase Nasal [place]] 2 spray NASAL DAILY 01/03/16 Tizanidine HCl [Zanaflex] 4 mg PO BID 01/03/16 aspirin 81 mg chewable tablet 81 mg PO DAILY 12/16/17 Levothyroxine Sodium [Synthroid] 75 mcg PO DAILY 10/21/18 Lisinopril 5 mg PO DAILY 10/21/18 Metamucil 2 cap PO BID 10/21/18 Multivitamin [One Daily Multivitamin] 1 ea PO DAILY 12/02/18 Lorazepam [Ativan] 0.5 mg PO TID 06/22/19 Polyethylene Glycol 3350 [Miralax] 17 gm PO DAILY PRN 06/22/19 Albuterol Inhaler [Ventolin Hfa] 1 - 2 puff INHALATION Q4H PRN PRN 04/16/20 Celecoxib [Celebrex] 200 mg PO DAILY 04/16/20 Diclofenac Sodium [Voltaren] 1 gm TOPICAL DAILY 04/16/20 Guaifenesin/Pseudoephedrne HCl [Mucinex D ER 600-60 mg Tablet] 1 ea PO BID 04/16/20 Hydrocortisone 1% Crm [Hytone] 1 applic TOPICAL DAILY 04/16/20 Mag Hydrox/Al Hydrox/Simeth [Mylanta II] 30 ml PO Q4H PRN PRN 04/16/20 Meclizine HCl [Antivert] 12.5 mg PO DAILY PRN PRN 04/16/20 Acetaminophen [Tylenol] 1,000 mg PO Q6H PRN tablet 05/13/20 Buprenorphine 20 Mcg/Hr [Butrans 20 Mcg/Hr] 1 each TD Q7D #1 patch.tdwk 05/13/20 Cyanocobalamin [Vitamin B12] 1,000 mcg PO QHS tablet 05/13/20 Diclofenac Sodium 1 gm TP TID gel..gram. 05/13/20 Mag Hydrox/Al Hydrox/Simeth [Mylanta II] 15 ml PO Q6H PRN PRN udc 05/13/20 Potassium Chloride [K-Dur] 20 meq PO BIDCM #60 tab 05/13/20 traMADol [Ultram] 100 mg PO Q6H PRN PRN tablet 05/13/20 The following prescriptions were given: Buprenorphine 20 Mcg/Hr [Butrans 20 Mcg/Hr] 1 each TD Q7D #1 patch.tdwk Transmission Status: Sent to [facility] Potassium Chloride [K-Dur] 20 meq PO BIDCM #60 tab Transmission Status: Pending to [facility] Primary Care Physician: Alex Self MD [Primary Care Provider] - Please follow up with your Primary Care Physician in: 1 week. Test Results: Test results from this visit will be discussed in further detail at your follow-up appointment, if applicable. Please Follow Up With: MD Reginald When: needs to f/u after TCU DC Please Follow Up With: Dr Self PCP Proposed Discharge Date: 05/18/20
--- NOTE | 2020-05-13 19:13 | DS.PCM_ITS ---
Discharge Date and Diagnosis - Problem List Patient Problems: Active and Suspected Problems (Last Updated 12/01/18 @ 13:44 by Suresh Escobar) Debility (Acute) Fecal impaction (Acute) Vitamin B12 deficiency (Acute) Opioid dependence (Acute) Anxiety (Acute) Benzodiazepine dependence (Acute) Dizziness (Acute) Nausea (Acute) Date of Admission: 05/01/20 Date of Discharge: 05/18/20 - Primary Discharge Diagnosis Acute Problems: Active Problems (Last Updated 12/01/18 @ 13:44 by Sruesh Escobar) Debility (Acute) Fecal impaction (Acute) Vitamin B12 deficiency (Acute) Opioid dependence (Acute) Anxiety (Acute) Benzodiazepine dependence (Acute) Dizziness (Acute) Nausea (Acute) - Secondary Discharge Diagnosis Chronic Problems: Chronic Problems (Last Updated 12/01/18 @ 13:44 by Suresh Escobar) Osteoarthritis of left knee (Chronic) Bipolar disorder (Chronic) Cerebral palsy (Chronic) Fibromyalgia (Chronic) Allergic rhinitis (Chronic) Muscle spasm (Chronic) Hypothyroidism (Chronic) Hypertension (Chronic) Hospital Course and Treatment Imaging Results: 05/01/20 20:13 Diet: Regular Diet Is pt able to select menu?: Yes Operations: None Procedures: None Summary of Care Provided: The patient is a 65 year old Female with below past medical history hospitalized for left total knee replacement 04/30/[address] Montelongo, postoperative course uncomplicated, admitted to TCU with debility, here for rehabilitation, strengthening, prior to discharge to [facility]. On TCU, potassium added for hypokalemia, consider stopping as outpatient. Resident had chronic nausea, possibly from narcotic pain medications, improved prior to discharge. Discharge to [facility], with bedside commode. Patient Problems: Active and Suspected Problems (Last Updated 12/01/18 @ 13:44 by Suresh Escobar) Debility (Acute) Fecal impaction (Acute) Vitamin B12 deficiency (Acute) Opioid dependence (Acute) Anxiety (Acute) Benzodiazepine dependence (Acute) Dizziness (Acute) Nausea (Acute) - Physical Exam Vitals/I&O's: Vital Signs Temp Pulse Resp BP Pulse Ox 98.8 F 97 18 141/58 H 99 05/13/20 14:17 05/13/20 14:17 05/13/20 14:17 05/13/20 14:17 05/13/20 14:17 Oxygen Delivery Method Room Air Weight: 77.111 kg Body Mass Index (BMI) 29.1 Intake and Output for Last 24 Hours 05/11/20 05/12/20 05/13/20 23:59 23:59 23:59 Intake Total 1310 / 1310 600 / 600 120 / 120 Balance 1310 / 1310 600 / 600 120 / 120 Microbiology Past 72 Hours 05/09/20 09:53 Urine, Clean Catch Urine Culture - Final Presumptive E. coli Current Medications Acetaminophen (Tylenol) 1,000 mg PO Q6H PRN PRN Reason: Pain Score 1-310 Last Admin: 05/13/20 17:11 Dose: 1,000 mg Documented by: Al Hydroxide/Mg Hydroxide (Mylanta Ii) 15 ml PO Q6H PRN PRN PRN Reason: INDIGESTION Last Admin: 05/11/20 02:01 Dose: 15 ml Documented by: Albuterol Sulfate (Ventolin Aerosols) 2.5 mg INHALATION Q4H PRN PRN PRN Reason: SOB/WHEEZE Apixaban (Eliquis) 2.5 mg PO 0800,1999 [facility] Stop: 05/14/20 20:01 Last Admin: 05/13/20 08:43 Dose: 2.5 mg Documented by: [facility], [facility]) [facility] Bisacodyl (Dulcolax) 10 mg RECTAL DAILY PRN PRN Reason: Constipation Celecoxib (Celebrex) 200 mg PO DAILY@0800 [facility] Last Admin: 05/13/20 08:41 Dose: Not Given Documented by: Cyanocobalamin (Vitamin B12) 1,000 mcg PO QHS [facility] Last Admin: 05/12/20 21:46 Dose: 1,000 mcg Documented by: Diclofenac Sodium (Diclofenac Sodium) 1 gm TP TID [facility] Last Admin: 05/13/20 13:55 Dose: 1 gm Documented by: Fentanyl (Duragesic Patch) 12 mcg TRANSDERM. Q3D [facility] Last Admin: 05/12/20 09:51 Dose: Not Given Documented by: Fluticasone Propionate (Flonase Nasal [place]) 2 spray NASAL DAILY@0800 [facility] Last Admin: 05/13/20 08:41 Dose: 2 spray Documented by: Hydrocortisone (Hytone) 1 applic TOPICAL DAILY [facility] Last Admin: 05/13/20 06:07 Dose: 1 applicatio Documented by: Levothyroxine Sodium (Synthroid) 75 mcg PO DAILY@0600 [facility] Last Admin: 05/13/20 06:07 Dose: 75 mcg Documented by: Lisinopril (Zestril) 5 mg PO DAILY@0800 [facility] Last Admin: 05/13/20 08:48 Dose: 5 mg Documented by: Lorazepam (Ativan) 0.5 mg PO TID [facility] Last Admin: 05/13/20 13:54 Dose: 0.5 mg Documented by: Meclizine HCl (Antivert) 12.5 mg PO DAILY PRN PRN PRN Reason: Vertigo and motion sickness Last Admin: 05/09/20 21:46 Dose: 12.5 mg Documented by: Metoclopramide HCl (Reglan) 10 mg PO [facility] Stop: 05/16/20 11:01 Last Admin: 05/13/20 17:07 Dose: 10 mg Documented by: Multivitamins (Multivitamin) 1 tablet PO DAILY@0800 [facility] Last Admin: 05/13/20 08:44 Dose: 1 tablet Documented by: Polyethylene Glycol (Miralax) 17 gm PO DAILY@0800 [facility] Last Admin: 05/13/20 08:43 Dose: 17 gm Documented by: Potassium Chloride (K-Dur) 20 meq PO BIDCM [facility] Last Admin: 05/13/20 17:07 Dose: 20 meq Documented by: Psyllium Hydrophilic Mucilloid (Metamucil) 1 packet PO [facility] Last Admin: 05/13/20 08:42 Dose: Not Given Documented by: Senna/Docusate Sodium (Senokot-S, [place]-Colace) 2 tablet PO [facility] Last Admin: 05/13/20 08:43 Dose: Not Given Documented by: Tizanidine HCl (Zanaflex) 4 mg PO 4X/DAY [facility] Last Admin: 05/13/20 17:08 Dose: 4 mg Documented by: Tramadol HCl (Ultram) 100 mg PO Q6H PRN PRN PRN Reason: Pain Score 4-10/10 Last Admin: 05/13/20 17:12 Dose: 100 mg Documented by: Discharge Diet: No Restrictions Discharge Activity: Return to Normal Activity, May Shower, Use Walker Weight Bearing Status: Weight bearing as tolerated Call your doctor if you observe: Fever of 101 or Higher, Inability to urinate, Inability to have a bowel movement, Shortness of breath, Chest pain, Uncontrolled pain Home Medications: Medications to take at Discharge Fluticasone 0.05% [Flonase Nasal [place]] 2 spray NASAL DAILY 01/03/16 Tizanidine HCl [Zanaflex] 4 mg PO BID 01/03/16 aspirin 81 mg chewable tablet 81 mg PO DAILY 12/16/17 Levothyroxine Sodium [Synthroid] 75 mcg PO DAILY 10/21/18 Lisinopril 5 mg PO DAILY 10/21/18 Metamucil 2 cap PO BID 10/21/18 Multivitamin [One Daily Multivitamin] 1 ea PO DAILY 12/02/18 Lorazepam [Ativan] 0.5 mg PO TID 06/22/19 Polyethylene Glycol 3350 [Miralax] 17 gm PO DAILY PRN 06/22/19 Albuterol Inhaler [Ventolin Hfa] 1 - 2 puff INHALATION Q4H PRN PRN 04/16/20 Celecoxib [Celebrex] 200 mg PO DAILY 04/16/20 Diclofenac Sodium [Voltaren] 1 gm TOPICAL DAILY 04/16/20 Guaifenesin/Pseudoephedrne HCl [Mucinex D ER 600-60 mg Tablet] 1 ea PO BID 04/16/20 Hydrocortisone 1% Crm [Hytone] 1 applic TOPICAL DAILY 04/16/20 Mag Hydrox/Al Hydrox/Simeth [Mylanta II] 30 ml PO Q4H PRN PRN 04/16/20 Meclizine HCl [Antivert] 12.5 mg PO DAILY PRN PRN 04/16/20 Acetaminophen [Tylenol] 1,000 mg PO Q6H PRN tablet 05/13/20 Buprenorphine 20 Mcg/Hr [Butrans 20 Mcg/Hr] 1 each TD Q7D #1 patch.tdwk 05/13/20 Cyanocobalamin [Vitamin B12] 1,000 mcg PO QHS tablet 05/13/20 Diclofenac Sodium 1 gm TP TID gel..gram. 05/13/20 Mag Hydrox/Al Hydrox/Simeth [Mylanta II] 15 ml PO Q6H PRN PRN udc 05/13/20 Potassium Chloride [K-Dur] 20 meq PO BIDCM #60 tab 05/13/20 traMADol [Ultram] 100 mg PO Q6H PRN PRN tablet 05/13/20 Following Prescrptions Were Given to Patient: Buprenorphine 20 Mcg/Hr [Butrans 20 Mcg/Hr] 1 each TD Q7D #1 patch.tdwk Transmission Status: Sent to [facility] Potassium Chloride [K-Dur] 20 meq PO BIDCM #60 tab Transmission Status: Pending to [facility] Primary Care Physician: Alex Self MD [Primary Care Provider] - Please follow up with your Primary Care Physician in: 1 week. Please Follow Up With: MD Reginald When: needs to f/u after TCU DC Please Follow Up With: Dr Self PCP Disposition: Asstd Living/Non-Skill NH Minutes spent on discharge:: 35 Patient Condition:: Stable Medical Necessity - Tobacco Use Smoking Status: Never smoker Tobacco Use: Non-smoker Meaningful Use Info Meaningful Use Diagnoses (Choose all that apply): None applicable
--- NOTE | 2020-05-13 19:15 | PCM.TXEXTCAR ---
- Diet 05/01/20 20:13 Diet: Regular Diet Is pt able to select menu?: Yes - Routine Orders/Code Status Code Status: Full Code - Wound(s) left knee Wound Type: Surgical Incision Dressing Change: Dry Sterile Dressing left jeffery Wound Type: Surgical Incision Dressing Change: Dry Sterile Dressing - Therapies Weight Bearing: Weight bearing as tolerated Extremity Affected:: Bilateral Lower - Problem/Diagnosis (1) Debility Status: Acute Current Visit: Yes (2) Osteoarthritis of left knee Status: Chronic Current Visit: Yes (3) Bipolar disorder Status: Chronic Current Visit: Yes (4) Cerebral palsy Status: Chronic Current Visit: Yes (5) Fibromyalgia Status: Chronic Current Visit: Yes (6) Allergic rhinitis Status: Chronic Current Visit: Yes (7) Muscle spasm Status: Chronic Current Visit: Yes (8) Hypothyroidism Status: Chronic Current Visit: Yes (9) Hypertension Status: Chronic Current Visit: Yes (10) Fecal impaction Status: Acute Current Visit: Yes (11) Vitamin B12 deficiency Status: Acute Current Visit: Yes (12) Opioid dependence Status: Acute Current Visit: Yes (13) Anxiety Status: Acute Current Visit: Yes (14) Benzodiazepine dependence Status: Acute Current Visit: Yes (15) Dizziness Status: Acute Current Visit: Yes (16) Nausea Status: Acute Current Visit: Yes - Allergies/Procedures Done in Hospital Allergies/Adverse Reactions: Allergies lithium Allergy (Mild, Verified 04/30/20 09:35) Vomiting aspartame Allergy (Verified 04/30/20 09:35) Itching carrot Allergy (Verified 05/02/20 13:52) Food Allergy ciclesonide [From [place]ves[place]] Allergy (Verified 04/30/20 09:35) Shortness of breath diphenhydramine HCl [From Benadryl] Allergy (Verified 04/30/20 09:35) Rash imipramine Allergy (Verified 04/30/20 09:35) Other levofloxacin [From Levaquin] Allergy (Verified 04/30/20 09:35) Itching onabotulinumtoxinA [From Botox] Allergy (Verified 04/30/20 09:35) Itching Penicillins Allergy (Verified 04/30/20 09:35) Rash topiramate [From Topamax] Allergy (Verified 04/30/20 09:35) Other sertraline [From Zoloft] Adverse Reaction (Verified 04/30/20 09:35) serotoin syndrome - Type of Care/Length of Stay Estimated LOS: More Than 30 Days Type of Care Needed: [facility]/Assisted Living Rehab Potential: Good Prognosis: Fair - Additional Orders/Day of Discharge Day of Discharge: 05/18/20 - Follow Up Care Primary Care Physician: Alex Self MD [Primary Care Provider] - Please follow up with your Primary Care Physician in: 1 week. Please Follow Up With: MD Reginald When: needs to f/u after TCU DC Please Follow Up With: Dr Self PCP
[2020-05-13] MEDS: Cyanocobalamin 500 MCG Tablet 1000 MCG PO (21:01)
[2020-05-14 06:07] VITALS: BP 127/82; PULSE 91; RESP 18; TEMP 36.8; O2SAT 97
[2020-05-14] MEDS: tiZANidine HCl 2 MG Tablet 4 MG PO ×4 (06:10→21:06)
[2020-05-14] MEDS: LORazepam 0.5 MG Tablet PO ×3 (06:10→21:06)
[2020-05-14] MEDS: Metoclopramide 10 MG Tablet PO ×4 (06:10→21:07)
[2020-05-14] MEDS: Levothyroxine 75 MCG Tablet PO (06:14)
[2020-05-14] MEDS: Fluticasone 0.05% 1 SPRAY NASAL.SRY 2 SPRAY NASAL (08:54)
[2020-05-14] MEDS: Hydrocortisone 2.5% Crm 1 APPLIC TOPICAL (08:55)
[2020-05-14] MEDS: DICLOFENAC SODIUM 100 GM GEL..GRAM. TP ×3 (08:56→21:11)
[2020-05-14] MEDS: APIXABAN 2.5 MG TABLET PO ×2 (08:57→21:07)
[2020-05-14] MEDS: Multivitamins,Therapeutic Tablet 1 TABLET PO (08:58)
[2020-05-14] MEDS: Lisinopril 5 MG Tablet PO (08:58)
[2020-05-14] MEDS: Acetaminophen 500 MG Tablet 1000 MG PO (09:07)
[2020-05-14] MEDS: traMADol 50 MG Tablet 100 MG PO ×3 (09:07→23:10)
[2020-05-14 09:17] VITALS: BP 118/76; PULSE 92
[2020-05-14 12:50] VITALS: PULSE 90; RESP 20; O2SAT 98
--- NOTE | 2020-05-14 15:10 | NURSING ---
pt stated she would update family but would like this nurse to call neighbor to let her know where to pick her up on d/c. talked to neighbor marc and she will pick pt up between 10;30 and 11:00am.
[2020-05-14 15:40] VITALS: BP 129/61; PULSE 89; RESP 18; TEMP 37.2; O2SAT 96
[2020-05-14] MEDS: Meclizine 12.5 MG Tablet PO (19:21)
[2020-05-14] MEDS: Cyanocobalamin 500 MCG Tablet 1000 MCG PO (21:07)
[2020-05-15] MEDS: Acetaminophen 500 MG Tablet 1000 MG PO ×3 (00:56→23:50)
[2020-05-15 05:28] VITALS: BP 150/93; PULSE 102; RESP 18; TEMP 37.4; O2SAT 97
[2020-05-15] MEDS: LORazepam 0.5 MG Tablet PO ×3 (05:44→21:28)
[2020-05-15] MEDS: Metoclopramide 10 MG Tablet PO ×4 (05:45→21:30)
[2020-05-15] MEDS: Levothyroxine 75 MCG Tablet PO (05:45)
[2020-05-15] MEDS: tiZANidine HCl 2 MG Tablet 4 MG PO ×4 (05:45→21:28)
[2020-05-15] MEDS: DICLOFENAC SODIUM 100 GM GEL..GRAM. TP ×3 (05:46→21:30)
[2020-05-15] MEDS: Hydrocortisone 2.5% Crm 1 APPLIC TOPICAL ×2 (05:47→14:37)
[2020-05-15] MEDS: traMADol 50 MG Tablet 100 MG PO ×3 (08:48→21:29)
[2020-05-15] MEDS: Multivitamins,Therapeutic Tablet 1 TABLET PO (08:49)
[2020-05-15] MEDS: Aspirin 81 MG TAB.CHEW PO (08:49)
[2020-05-15] MEDS: Polyethylene Glycol 3350 17 GM PACKET PO (08:49)
[2020-05-15] MEDS: Lisinopril 5 MG Tablet PO (08:50)
[2020-05-15] MEDS: Fluticasone 0.05% 1 SPRAY NASAL.SRY 2 SPRAY NASAL (08:53)
[2020-05-15 14:28] VITALS: BP 119/63; PULSE 82; RESP 16; TEMP 37.9; O2SAT 98
[2020-05-15] MEDS: Cyanocobalamin 500 MCG Tablet 1000 MCG PO (21:31)
[2020-05-16] MEDS: traMADol 50 MG Tablet 100 MG PO ×3 (04:12→18:08)
[2020-05-16 05:04] VITALS: BP 170/77; PULSE 86; RESP 18; TEMP 36.8; O2SAT 98
[2020-05-16] MEDS: tiZANidine HCl 2 MG Tablet 4 MG PO ×4 (05:05→21:13)
[2020-05-16] MEDS: LORazepam 0.5 MG Tablet PO ×3 (05:05→21:12)
[2020-05-16] MEDS: DICLOFENAC SODIUM 100 GM GEL..GRAM. TP ×3 (05:05→21:15)
[2020-05-16] MEDS: Hydrocortisone 2.5% Crm 1 APPLIC TOPICAL (05:06)
[2020-05-16] MEDS: Levothyroxine 75 MCG Tablet PO (05:06)
[2020-05-16] MEDS: Metoclopramide 10 MG Tablet PO ×2 (05:06→11:17)
[2020-05-16 06:11] LABS: Absolute Lymphocyte Count 1.62 X10^3/uL (0.83-4.51); Absolute Neutrophil Count 2.9 X10^3/uL (2.0-7.7); Anion Gap 6 (5-15); BUN 7 mg/dL (7-18); BUN/Creat Ratio 8.3 RATIO (10-20); Basophil# 0.05 X10^3/uL; Basophil% 0.9 % (0-1); Calcium,Total 8.5 mg/dL (8.5-10.1); Chloride 105 mmol/L (98-107); Creatinine, Serum 0.84 mg/dL (0.55-1.02); EST Glomerular Filtration Rate 73 mL/min (>60); Eosinophils% 3.6 % (0-5); Est Glom Filt Rate - Afr Amer 88 mL/min (>60); Estimated Creatinine Clearance 61.68 ml/min; Glucose 101 mg/dL (74-106); Hematocrit 33.7 % (37-47); Hemoglobin 10.4 g/dL (12.0-15.0); Lymphocyte # 1.62 X10^3/ul (4.0); Lymphocyte % 29.5 % (19-41); Mean Corp Hgb Conc 30.9 g/dL (32-36); Mean Corpuscular Hgb 29.3 pg (27.0-32.0); Mean Corpuscular Volume 94.9 fL (81-99); Monocyte# 0.73 X10^3/uL; Monocyte% 13.3 % (0-10); NRBC Flagged by Analyzer 0 % (0-5); Neutrophil # 2.88 X10^3/uL (2.7-7.7); Neutrophil % 52.5 % (47-70); Platelet Count 391 K/mm3 (150-450); Potassium 4.8 mmol/L (3.5-5.1); RBC Distribution Width CV 15.1 % (11.6-14.6); RBC Distribution Width SD 50.8 fl (35.1-43.9); Red Blood Count 3.55 M/mm3 (4.2-5.4); Sodium Level 135 mmol/L (136-145); White Blood Count 5.5 K/mm3 (4.4-11.0)
[2020-05-16] MEDS: Aspirin 81 MG TAB.CHEW PO (09:07)
[2020-05-16] MEDS: Fluticasone 0.05% 1 SPRAY NASAL.SRY 2 SPRAY NASAL (09:07)
[2020-05-16] MEDS: Polyethylene Glycol 3350 17 GM PACKET PO (09:08)
[2020-05-16] MEDS: Multivitamins,Therapeutic Tablet 1 TABLET PO (09:08)
[2020-05-16] MEDS: Lisinopril 5 MG Tablet PO (09:08)
[2020-05-16] MEDS: Meclizine 12.5 MG Tablet PO (10:56)
[2020-05-16 13:46] VITALS: BP 130/74; PULSE 83; RESP 16; TEMP 36.9; O2SAT 98
[2020-05-16] MEDS: Acetaminophen 500 MG Tablet 1000 MG PO (14:54)
[2020-05-16] MEDS: Cyanocobalamin 500 MCG Tablet 1000 MCG PO (21:13)
[2020-05-17] MEDS: traMADol 50 MG Tablet 100 MG PO ×4 (00:44→23:13)
[2020-05-17 04:58] VITALS: BP 140/78; PULSE 83; RESP 18; TEMP 36.8; O2SAT 97
[2020-05-17] MEDS: Hydrocortisone 2.5% Crm 1 APPLIC TOPICAL (04:59)
[2020-05-17] MEDS: DICLOFENAC SODIUM 100 GM GEL..GRAM. TP ×3 (04:59→21:04)
[2020-05-17] MEDS: tiZANidine HCl 2 MG Tablet 4 MG PO ×4 (05:00→21:05)
[2020-05-17] MEDS: Levothyroxine 75 MCG Tablet PO (05:00)
[2020-05-17] MEDS: LORazepam 0.5 MG Tablet PO ×3 (05:00→21:04)
[2020-05-17] MEDS: Fluticasone 0.05% 1 SPRAY NASAL.SRY 2 SPRAY NASAL (08:33)
[2020-05-17] MEDS: Multivitamins,Therapeutic Tablet 1 TABLET PO (08:34)
[2020-05-17] MEDS: Aspirin 81 MG TAB.CHEW PO (08:34)
[2020-05-17] MEDS: Lisinopril 5 MG Tablet PO (08:35)
--- NOTE | 2020-05-17 09:11 | CASEMGMT ---
Social Work BIMS and PHQ-9 completed for MDS assessment. Yari Looney, MAGNET PLACER TRAIN PLANNER
[2020-05-17 10:00] VITALS: RESP 16
--- NOTE | 2020-05-17 13:11 | MDS.RN ---
Pain interview for leena 05/18/20 completed.
[2020-05-17] MEDS: Meclizine 12.5 MG Tablet PO (14:27)
[2020-05-17] MEDS: Cyanocobalamin 500 MCG Tablet 1000 MCG PO (21:05)
[2020-05-18] MEDS: Mag Hydrox/Al Hydrox/Simeth 30 ML UDC 15 ML PO (01:33)
[2020-05-18] MEDS: LORazepam 0.5 MG Tablet PO (04:53)
[2020-05-18] MEDS: tiZANidine HCl 2 MG Tablet 4 MG PO (04:54)
[2020-05-18] MEDS: Levothyroxine 75 MCG Tablet PO (04:54)
[2020-05-18] MEDS: DICLOFENAC SODIUM 100 GM GEL..GRAM. TP (04:55)
[2020-05-18] MEDS: Hydrocortisone 2.5% Crm 1 APPLIC TOPICAL (04:55)
[2020-05-18 04:57] VITALS: BP 135/77; PULSE 86; RESP 18; TEMP 36.7; O2SAT 96
[2020-05-18] MEDS: traMADol 50 MG Tablet 100 MG PO (06:38)
[2020-05-18] MEDS: Polyethylene Glycol 3350 17 GM PACKET PO (09:20)
[2020-05-18] MEDS: Multivitamins,Therapeutic Tablet 1 TABLET PO (09:20)
[2020-05-18 09:30] VITALS: PULSE 97; RESP 18; O2SAT 98
[2020-05-18] MEDS: Lisinopril 5 MG Tablet PO (09:33)
[2020-05-18] MEDS: Fluticasone 0.05% 1 SPRAY NASAL.SRY 2 SPRAY NASAL (09:36)
[2020-05-18] MEDS: Aspirin 81 MG TAB.CHEW PO (09:38)
[2020-05-18 09:40] VITALS: BP 117/73; PULSE 97
== END 2020-05-18 10:30 | disposition home or self-care (01) | DRG 560 ==
PROVIDERS: Admitting Provider Family Medicine Geriatric Medicine; PCP Family Medicine; Visit Provider Family Medicine Geriatric Medicine
DX: Z47.1 Aftercare following joint replacement surgery (principal); F11.20 Opioid dependence, uncomplicated; Z96.652 Presence of left artificial knee joint; G80.9 Cerebral palsy, unspecified; Z23 Encounter for immunization; E03.9 Hypothyroidism, unspecified; M79.7 Fibromyalgia; F31.9 Bipolar disorder, unspecified; F41.9 Anxiety disorder, unspecified; I10 Essential (primary) hypertension; M62.838 Other muscle spasm; E87.6 Hypokalemia
CPT/HCPCS: 36415; 80048; 81001; 82962; 85014; 85018; 85025; 87086; 87088; 87186; 87635; 90732; 97110; 97116; 97162; 97166; 97530; 97535; 97802; G0009; G2023; U0003

== ENCOUNTER → 2020-06-12 | Outpatient (CLI) | payer MEDICARE, MEDICAID, SELFPAY ==
[2020-06-12 09:17] VITALS: BMI 29.1
--- NOTE | 2020-06-12 09:25 | RAD_ITS ---
STUDY: X-RAY - LEFT KNEE REASON FOR EXAM: Female, 65 years old. POST OP FOLLOW UP TECHNIQUE: 4 view(s) of the knee. COMPARISON: Comparison is made with prior study dated 04/30/2020. FINDINGS: Normal visualized distal femur. Normal visualized proximal tibia and fibula. Normal proximal tibiofibular articulation. The patient is status post total knee replacement. There is good alignment. Small joint effusion and soft tissue swelling. RAD/Knee 4 or More Views IMPRESSION: Status post total knee replacement. There is good alignment. Small joint effusion and soft tissue swelling. Electronically Signed: Guerrero Hooper, at 15:30 EDT , Service support ,
== END | disposition home or self-care (01) ==
LOC: HPRAD 09:25
PROVIDERS: PCP Family Medicine; Referring Provider Orthopaedic Surgery; Visit Provider Orthopaedic Surgery
DX: M25.562 Pain in left knee (principal)
CPT/HCPCS: 73564

== ENCOUNTER 2020-11-07 10:00 | Outpatient (RCR) | payer MEDICARE, MEDICAID, SELFPAY ==
[2020-07-24 07:53] VITALS: BMI 29.1
--- NOTE | 2020-10-14 15:22 | HP.PTEVAL_ITS ---
Patient's Visit Information STEVE FAGAN is a 65 year old F referred to Physical Therapy by KEITH RODRIGUEZ with a diagnosis of R peripheral vestibular hypofunction on ENG. Date of Evaluation: 10/14/20 Physical Therapist: Roshan Negrete, PEMAT, OCS, CSCS - Visit Plan Frequency: 1x/Week Duration: 4-6 Weeks Plan: weekly for progression of vestibular exercises of adaptationa dn habituation. Next session check todays HEP and progress(diagonal head movements, VOR progression, balance. May need to increase frequency. - Subjective [place] to live in [place]. Spent 11 years in assisted living. Now at [facility] as she had serotonin syndrome. Used to weigh 221 and has lost weight now. Currently is here for vertigo. Had ENG and has R vestibular hypofunction. Was sent to neuro for neck pain and [facility] in December. Sep 19 was ENG. Has some dizzyness intermittently but more described as head feeling funny and gets sick to stomach. Happens when she reads and writes at times. Movement can cause it like exercises that move the head. This has been going on for over a year but worsening.It can last an hour or days. Has to rest when she gets it. No falls as she uses wh walker most of time. Etienne exercises for neck sometimes. Sleep is good most of time. Disabled. Spends day riding bike, walks 10-15 min(had TKA this summer). Enjoys reading and writing. Cleaned room alot this weekend. Dizzyness sometimes holds her back. Dresses self, bathroom self, showers self. Cleans place herself. Does not get car sic previously but does now. Can read and writing voume before onset varies but is about 20 minutes. - Pain neck Pain Intensity (Out of 10): 6 Pain Intensity Range: 4, 9 - Objective TUG 20 seconds. Walks with wh walker I, without walker is SBA, hesitant. Transfers are I but slow. cervical aROM WFL adn without c/o pain. reflexes 2/3 biceps and triceps. Sensation UE WNL to gross light touch. - B hallpike nabor and roll test although some dizzyness with L hallpike. other MSQ psoitions: head turns and nods give some dizzyness. unable to quickly turn standing. head to knee and up is not bad. Oculomotor: gaze and head shake are negative for nystagmus. convergence gives surprising pull back of head. - ocular tilt. - skew eye deviation. saccades are challenging for patient to get eyes oving and needs extra time. Pursuit is slow but able. VOR gives funny feeling in head and is very challenging horizontally , less so vertically. - Balance Scores Functional Gait Assessment Score: 19 % Disability: 36.6700 - Goals Goal 1:: 60 seconds VOR without symptoms and MSQ positons without increased symptoms Goal Time Frame: 4-6 Weeks Goal 2:: read and write for 60 minutes without symptoms. Goal Time Frame: 4-6 Weeks Goal 3:: Pt feel 50% better in head overall Goal Time Frame: 4-6 Weeks Goal 4:: FGA to diminish fall risk. Goal Time Frame: 4-6 Weeks - Rehabilitation Potential Physical Therapy Diagnosis: R vestibular hypofunction Rehabilitation Potential: Fair - Anticipated Interventions Patient/Client Instruction: Educate patient on: Condition, Plan of Care For the Purpose of:: To increase tolerance to activity/condition/position, To improve balance Comment: adaptationa dn habituation ex. For the Purpose of:: To increase tolerance to activity/condition/position Thank you for the opportunity to evaluate your patient. For Medicare and Medicare HMO plans, please review the plan of care and approve it. It will need to be FAXED BACK to us at [phone] for Medicare purposes. For Medicare only, by signing this I certify the plan of care. Please let me know if there are questions or concerns regarding this plan of care. Physician Signature: Date:
--- NOTE | 2020-11-07 10:30 | HP.PTDCSUM_ITS ---
It has been my pleasure to treat STEVE FAGAN referred by KEITH RODRIGUEZ, with the diagnosis of R peripheral vestibular hypofunction on ENG for a total of 3 visit(s). Discharge Date: 11/07/20 Please see the following information for a summary of their discharge status. Subjective: It is helping. I did 30-40 cards on Funderbeam and has done some since them. That went really well. Doing exercises regularly. Only VOR is problematic horizontally after about 30 seconds. Balance feels OK. neck Pain Intensity (Out of 10): 6 % Improvement: 90 Objective/Function: VOR horiz going too fast and whole body starts to move then head stops moving, overall much better than previously and increased time. Horizontal and vertical movents 12x without dizzyness. Vertical VOR 60 seconds without dizzyness today. Balance improved and pt happy and wants to move on with TKA if possible once therapy done. Goal 1:: 60 seconds VOR without symptoms and MSQ positons without increased symptoms Goal Progress: Progressing Goal 2:: read and write for 60 minutes without symptoms. Goal Progress: Goal Met Goal 3:: Pt feel 50% better in head overall Goal Progress: Goal Met Goal 4:: FGA to diminish fall risk. Goal Progress: Progressing Plan: d/c to HEP If there are questions or concerns regarding this patient's physical therapy, please feel free to call me at [phone]. Thank you for the referral of this patient. Sincerely, Roshan Negrete, DPT, OCS, CSCS
== END 2020-11-07 19:00 | disposition home or self-care (01) ==
LOC: PT 10:00
PROVIDERS: PCP Family Medicine
DX: H81.91 Unspecified disorder of vestibular function, right ear (principal)
CPT/HCPCS: 97110; 97163; 97530

== ENCOUNTER → 2021-01-01 07:48 | Outpatient (CLI) | payer MEDICARE, MEDICAID, SELFPAY ==
[2020-07-24 07:53] VITALS: BMI 29.1
--- NOTE | 2021-01-01 07:49 | CT_ITS ---
STUDY: CT RIGHT LOWER EXTREMITY REASON FOR EXAM: Osteoarthritis of the right knee, presurgical planning. TECHNIQUE: Transaxial CT imaging of the lower extremity was performed. Coronal and sagittal images were reformatted. Individualized dose optimization techniques were used for this CT. COMPARISON: Radiographs 12/02/2020. FINDINGS: Knee: There are marginal osteophytes and severe joint space narrowing of the medial femorotibial compartment (coronal reconstructions 27-30). There are marginal osteophytes and moderate joint space narrowing of the lateral femorotibial compartment (coronal reconstruction 31). There are prominent marginal osteophytes and mild to moderate joint space narrowing of the patellofemoral articulation (sagittal reconstruction 36). Normal proximal tibiofibular articulation. There is a small joint effusion. There are multiple intra-articular bodies. The quadriceps tendon is grossly normal. The patellar tendon is grossly normal. Normal Hoffa''s fat pad. There is a popliteal cyst containing multiple intra-articular bodies (sagittal reconstructions 43-54). There is vascular calcification. Hip: There is mild joint space narrowing of the superior medial right hip (coronal reconstructions 57, 58). Ankle: There is a small subchondral cyst in the anterior aspect of the distal tibia (sagittal reconstruction 47). Otherwise, unremarkable tibiotalar articulation. There is mild joint space narrowing of the posterior subtalar articulation (sagittal reconstruction 46). Normal talonavicular articulation. There is a small plantar calcaneal enthesophyte. CT/Extremity Lower without Contra IMPRESSION: Tricompartmental arthrosis of the right knee with intra-articular bodies, small joint effusion and popliteal cyst. Electronically Signed: Umer Araujo MD at 9:25 EST Tel , Service support ,
== END ==
PROVIDERS: PCP Family Medicine; Referring Provider Orthopaedic Surgery; Visit Provider Orthopaedic Surgery
DX: M17.11 Unilateral primary osteoarthritis, right knee (principal)
CPT/HCPCS: 73700

== ENCOUNTER 2021-03-11 16:28 | Inpatient (IN) | payer MEDICARE, MEDICAID, SELFPAY ==
[2020-07-24 07:53] VITALS: BMI 29.1
--- NOTE | 2021-01-13 09:37 | EKG12_ITS ---
Test Reason : PREOP Blood Pressure : / mmHG Vent. Rate : 062 BPM Atrial Rate : 062 BPM P-R Int : 158 ms QRS Dur : 084 ms QT Int : 406 ms P-R-T Axes : 054 074 073 degrees QTc Int : 412 ms Normal sinus rhythm Normal ECG Confirmed by YASMANY QUESADA, IRIS ([id number]), editor publications ALBER MIRAMONTES ([id number]) on 01/15/2021 9:32:55 AM Referred By: Justice Montelongo Confirmed By:IRIS JADE MD
[2021-01-13 10:57] LABS: Absolute Lymphocyte Count 1.22 X10^3/uL (0.83-4.51); Absolute Neutrophil Count 2.6 X10^3/uL (2.0-7.7); Basophil# 0.03 X10^3/uL; Basophil% 0.7 % (0-1); Eosinophil# 0.25 X10^3/uL; Eosinophils% 5.5 % (0-5); Hematocrit 34.2 % (37-47); Lymphocyte # 1.22 X10^3/ul (4.0); Lymphocyte % 26.8 % (19-41); Mean Corp Hgb Conc 32.2 g/dL (32-36); Mean Corpuscular Hgb 30.2 pg (27.0-32.0); Mean Platelet Vol. 9.2 fl (6.2-12.0); Monocyte# 0.47 X10^3/uL; Monocyte% 10.3 % (0-10); NRBC Flagged by Analyzer 0 % (0-5); Neutrophil # 2.57 X10^3/uL (2.7-7.7); Neutrophil % 56.5 % (47-70); Platelet Count 187 K/mm3 (150-450); RBC Distribution Width CV 12.7 % (11.6-14.6); RBC Distribution Width SD 43.9 fl (35.1-43.9); Red Blood Count 3.64 M/mm3 (4.2-5.4); White Blood Count 4.6 K/mm3 (4.4-11.0)
[2021-01-13 11:13] LABS: Partial Thromboplast Time 34.4 Seconds (24.1-36.2)
[2021-01-13 11:25] LABS: Anion Gap 4 (5-15); BUN 11 mg/dL (7-18); BUN/Creat Ratio 11.8 RATIO (10-20); Calcium,Total 8.4 mg/dL (8.5-10.1); Chloride 107 mmol/L (98-107); Creatinine, Serum 0.94 mg/dL (0.55-1.02); EST Glomerular Filtration Rate 64 mL/min (>60); Est Glom Filt Rate - Afr Amer 78 mL/min (>60); Glucose 100 mg/dL (74-106); Potassium 3.9 mmol/L (3.5-5.1); Sodium Level 139 mmol/L (136-145)
[2021-01-13 11:40] LABS: AST(SGOT) 22 U/L (15-37); Alanine Aminotransfer ALT/SGPT 22 U/L (13-56); Albumin, Serum 3.2 g/dL (3.2-5.0); Alkaline Phosphatase 98 U/L (45-117); Bilirubin, Direct 0.06 mg/dL (0.00-0.30); Globulin 2.9 g/dL (2.2-4.2); Magnesium 1.9 mg/dL (1.6-2.6); Protein, Total 6.1 g/dL (6.4-8.2)
[2021-01-14 14:19] LABS: Fructosamine 203 umol/L (0-285)
[2021-02-26 09:11] VITALS: BMI 29.1
[2021-03-11] VITALS (27 sets, daily range): BP systolic 104–226; BP diastolic 72–110; PULSE 60–79; RESP 16–18; TEMP 36.4–37.1; O2SAT 94–100; BMI 32.1; BMI 33.0
[2021-03-11] MEDS: Scopolamine 1mg/72hr Patch 1 PATCH TD (07:00)
[2021-03-11] MEDS: Lactated Ringers 1,000 ML 100 ML IV ×2 (07:00→14:00)
[2021-03-11] MEDS: Gabapentin 600 MG Tablet PO (07:00)
[2021-03-11] MEDS: Celecoxib 200 MG Capsule 400 MG PO (07:00)
[2021-03-11] MEDS: Acetaminophen 500 MG Tablet 1000 MG PO (08:58)
[2021-03-11 09:51] LABS: Bedside Glucose 88 mg/dL (70-110)
[2021-03-11] MEDS: Cefazolin 2 GM in 0.9% Normal Saline 100 ML IV (11:36)
[2021-03-11] MEDS: dexAMETHasone 10 MG/ML Vial IV (11:50)
[2021-03-11] MEDS: 0.9% Normal Saline (Pres. free 10 ML Vial (13:00)
[2021-03-11] MEDS: Epinephrine (1 mg/ml) 1 MG/ML VIAL (13:00)
[2021-03-11] MEDS: Bupivacaine 0.5% PF 10 ML VIAL (13:00)
[2021-03-11] MEDS: Betamethasone/Betamethasone 30 MG/5 ML Vial (13:00)
--- NOTE | 2021-03-11 13:59 | HP.PCM_ITS ---
History and Physical Date of Admission: 03/11/21 Date of Service: 02/26/21 MR#:[id number]: STEVE FAGAN [facility] #:[id number]:[id number] Provider:Dr. Justice Montelongo, DOAge/Sex: 66/F [facility] [place]Signed Intake Vital Signs 02/26/21 09:11 BMI 29.1 Intake Visit Reasons: right knee Chief Complaint: BL knees Allergies lithium Allergy (Mild, Verified 02/26/21 09:19) Vomiting aspartame Allergy (Verified 02/26/21 09:19) Itching carrot Allergy (Verified 02/26/21 09:19) Food Allergy ciclesonide [From Alvesco] Allergy (Verified 02/26/21 09:19) Shortness of breath diphenhydramine HCl [From Benadryl] Allergy (Verified 02/26/21 09:19) Rash imipramine Allergy (Verified 02/26/21 09:19) Other levofloxacin [From Levaquin] Allergy (Verified 02/26/21 09:19) Itching onabotulinumtoxinA [From Botox] Allergy (Verified 02/26/21 09:19) Itching Penicillins Allergy (Verified 02/26/21 09:19) Rash topiramate [From Topamax] Allergy (Verified 02/26/21 09:19) Other baclofen Adverse Reaction (Severe, Verified 02/26/21 09:19) vomitting erythromycin base Adverse Reaction (Severe, Verified 02/26/21 09:19) chest pain fentanyl Adverse Reaction (Severe, Verified 02/26/21 09:19) vomitting lubiprostone [From Amitiza] Adverse Reaction (Severe, Verified 02/26/21 09:19) vomitting ondansetron [From Zofran] Adverse Reaction (Severe, Verified 02/26/21 09:19) vomitting oxycodone Adverse Reaction (Severe, Verified 02/26/21 09:19) vomitting oxymorphone Adverse Reaction (Severe, Verified 02/26/21 09:19) ABD pain and vomitting pregabalin [From Lyrica] Adverse Reaction (Severe, Verified 02/26/21 09:19) eyes would stay closed codeine Adverse Reaction (Verified 02/26/21 09:19) nausea sertraline [From Zoloft] Adverse Reaction (Verified 02/26/21 09:19) serotoin syndrome environmental Allergy (Uncoded 02/25/21 10:29) Other [facility] Medical History (Updated 01/10/21 @ 10:43 by Radha Bush) Bipolar 1 disorder Cerebral palsy Fibromyalgia HBP (high blood pressure) Hypothyroid Social History (Updated 01/10/21 @ 13:51 by Armand ESPOSITO, PA) Smoking Status: Never smoker HPI right knee Details: Parts of this documentation were recorded by a scribe, this documentation accurately reflects the service provided and the decisions made by me, Dr. Justice Montelongo, DO 02/26/21 0910. STEVE FAGAN is a 66 year old F here today for her pre-op appointment, needs to sign consent today. Patient brought in questions to be discussed with Dr. Montelongo today. Patient brought in blood work orders, would like them fax to [facility], as well with our order set for her pre-op. Ortho Exam General General: Yes no acute distress Neurologic: Yes alert Psychologic: Yes reasonable and appropriate Right Knee KNEE: Right Knee Skin/Wound: No erythema, No ecchymosis, Yes swelling Homans Sign: No Knee ROM: Yes ROM-Extension -20 to 0, No ROM-Flexion 0-140 (120) Examination: Yes Med jt line tenderness, Yes Lat jt line tenderness, Yes Crepitus Stability: NML: Anterior Drawer, NML: Posterior Drawer, NML: Valgus 30, NML: Varus 30 Patella Translation: 1 Patella Grind: Yes Supplemental Info 12/23/2020 x-ray left knee: Status post total knee arthroplasty without any acute concerning signs 12/23/2020 x-ray left ankle: No acute findings mild degenerative changes medial ankle 12/23/2020 x-ray left foot: No acute findings advanced first MTP arthrosis with possible old fracture with surrounding callus, No acute findings 12/02/2020 x-ray left knee status post total knee arthroplasty with good implant positioning and interfaces 04/01/2020 x-ray right knee advanced tricompartmental DJD with anterior subluxation of the tibia 06/12/2020 x-ray left knee: Status post total knee arthroplasty with good implant position and interfaces no acute abnormality Coding Level of Care Code Off vis,est,level 3 Diagnoses Osteoarthritis of left knee M17.12 Assessment and Plan Assessment and Plan (1) Osteoarthritis of left knee: Status: Chronic Plan - Dr. Justice Montelongo, DO: Advised patient will be prescribed hydrocodone/acetaminophen for pain control post-op in the hospital as well as Dilaudid, however her PCP will provide her post operative narcotic after hospital stay which he has agreed to accoring to patient. Explained patient will have to be prescribed a blood thinner post-op as well. Advised will be prescribing Eliquis. Will be faxing a referral to Dr. Taylor's office for her left arm cervical radiculitis pain per patient's request. All questions answered. Patient in agreement of plan. Follow up post-op or sooner if pain, swelling, numbness or associated symptoms, or concerns develop. I have re-examined the patient. There are no clinical changes since date of exam
--- NOTE | 2021-03-11 13:59 | OP.PCM_ITS ---
Report of Operation Description of Surgical Findings:: Preoperative diagnosis: Right knee DJD Postoperative diagnosis: Same Procedure: Right total knee arthroplasty CT guided Robotic Assisted Implant: Torrington triathlon cemented femoral component size 3, cemented tibial baseplate size 4, cemented asymmetric patella size 32, polyethylene X3 size CS 13 Anesthesia: General with adductor canal block Tourniquet time: 67 minutes at 300 mmHg Complications: None Condition: Stable to PACU Estimated blood loss cc Indication for procedure: This is a 66-year-old female with long standing degenerative joint disease of the knee with severe deformity of femoral subluxation and flexion contracture who has failed conservative treatment and wished to proceed with elective total knee arthroplasty. Risk benefits and alternatives were reviewed including; risk of bleeding, infection, nerve artery and tissue damage, continued pain, postoperative stiffness, venous thromboembolism, need for postoperative rehabilitation, mechanical feel to the knee, and expected postoperative course. The operative CT and templating was performed with component sizing, there was a cyst in the tibial plateau which is why we chose to cement this particular knee. Stability of the knee with CS component was deemed satisfactory PS was not required Procedure: The patient was met in the preoperative holding area. The operative extremity was identified by both patient and physician and was marked. Patient was met by anesthesia. An adductor canal block was placed by anesthesia postoperatively the patient was brought back to the operating room on a wheeled cart and transferred to the operating table in the supine position. Anesthesia was started. A well-padded tourniquet was placed on the operative extremity. The patient was prepped and draped in the usual sterile fashion. A timeout was called to ensure the proper patient procedure and extremity were being contemplated. An Esmarch was used to exsanguinate the extremity. The tourniquet was inflated. A 10 blade scalpel was used to make a midline incision down through the skin and subcutaneous tissue. Skin retractors placed. Bovie was used to perform meticulous hemostasis. full-thickness flaps were elevated medial and lateral along the joint capsule. A deep blade scalpel was used to perform a medial parapatellar arthrotomy. The knee was brought to full extension. A Bovie was used to release the soft tissues off the most proximal aspect of the medial tibial plateau, a three-quarter inch curved osteotome was also used for this process. The infrapatellar fat pad was excised. The superior fat pad was excised partially anteriorolateraly and portion the anterioromedial pad was elevated from the femur. At this point our intra- articular femoral array was placed of a 45 degree angle proximal and posterior to the medial epicondyle. Our tibial array was placed greater than 1 hands breath below the incision at a 20 degree angle stab incisions were used for this case were attached and checked with the robotic software. Tourniquet was let down. At this point registration hearn were taken throughout the knee as well as checkpoints placed in the femur and tibia once the knee was registered then tensioned the medial and lateral ligaments in extension and 90 degrees of flexion. We then used these numbers to adjust our components within parameters to balance the knee in both flexion and extension once this was done on our monitor we then proceeded with using the robotic arm to make our tibial plateau cut and anterior posterior and chamfer cuts and distal on the femur we then trialed and achieved the desired plan with a well-balanced knee. Lug holes were drilled in the femur the tibia preparation was completed with a fin punch and the patella was prepared by first using a caliper to ensure sufficient bone stock and a patellar reamer to remove the desired amount of bone locals were drilled for an asymmetric poly-. We then brought the knee through range of motion with excellent patellar tracking. We thoroughly irrigated the knee with a trial components were removed a posterior capsular injection with her standard cocktail was performed the aqua Mantis was also used to aid in hemostasis. Betadine rinse was allowed to sit and washed out components were cemented. Aricept rinse was then used followed by several more rate liters of irrigation after it was allowed to sit. Joint capsule was closed with #1 Ethibond [id number] followed by Vicryl in the subcutaneous tissues staple in the skin arrays and checkpoints were removed prior to closure all counts were correct stab incisions were closed with a stable standard dressing in the form of Mepilex for the main incision Xeroform 4 x 4 and Tegaderm over pin site holes. Thigh-high CHARANJIT hose applied over top of dressing. Patient tolerated the procedure well and was directed to PACU in stable condition no intraoperative complications rig builder helper: Armand Heard rig builder helper: Elizabet Arguelles
--- NOTE | 2021-03-11 14:30 | RAD_ITS ---
STUDY: X-RAY - RIGHT KNEE REASON FOR EXAM: Female, 66 years old. Postop TECHNIQUE: 2 view(s) of the knee. COMPARISON: None. FINDINGS: Normal visualized distal femur. Normal visualized proximal tibia and fibula. Normal proximal tibiofibular articulation. The patient is status post total knee replacement. There is good alignment. Postoperative soft tissue changes. RAD/Knee 1 or 2 Views IMPRESSION: Status post right total knee replacement. There is good alignment. Postoperative soft tissue changes. Electronically Signed: Guerrero Hooper MD at 14:50 EDT , Service support ,
[2021-03-11 14:56] LABS: Bedside Glucose 169 mg/dL (70-110)
[2021-03-11] MEDS: Cefazolin 1 GM/50 ML BAG IV ×2 (15:03→22:45)
--- NOTE | 2021-03-11 17:07 | PCM.CONS.GEN ---
Assessment & Plan Assessment/Plan (1) Status post right knee replacement: (2) Bipolar disorder: (3) Cerebral palsy: (4) Hypothyroidism: (5) Hypertension: (6) Muscle spasm: PLAN: This is a 66 years old female patient underwent elective CT-guided robotic assisted right total knee arthroplasty and I am seeing this patient for postoperative medical management. #[address]-guided robotic assisted right total knee arthroplasty: This was done for right knee osteoarthritis, postoperative day 0. Currently, blood pressure improved, other vital signs are stable. Preoperative routine blood work reviewed as above. She is on IV cefazolin for perioperative prophylaxis. She is on IV Dilaudid for pain and OxyIR as needed for pain. Orthopedic surgery is managing. CBC and BMP for tomorrow ordered. #2 hypertension: Blood pressure was elevated but improved after IV morphine. It is likely because of pain. Plan to continue lisinopril, start IV hydralazine as needed. #3 hypothyroidism: TSH was more than 20 couple of months ago, continue reduction, will recheck TSH. #4 cerebral palsy/chronic muscle spasm: Supportive treatment, continue tizanidine and tramadol, PT OT. #5 bipolar disorder/anxiety: Continue Ativan as needed. #6 DVT prophylaxis: SCDs, plan to start Eliquis twice daily tomorrow. This note was generated with IQMax dictation software. It may contain incorrect words, spelling, and punctuation that were not noted in checking the note before signing. HPI Consult Data Date of Consult: 03/11/21 HPI Narrative Reason for Consultation: Postoperative medical management. HPI Narrative: STEVE FAGAN, is a 66 F with past medical history as mentioned below underwent elective CT-guided robotic assisted right total knee arthroplasty and I am seeing this patient for postoperative medical management. At this time, patient complained of right knee pain, 7 out of 10 in severity, not radiating and no associated symptoms. Nursing staff informed that her blood pressure was elevated, received IV morphine and her blood pressure start to come down. She has a history of hypertension and she has been on lisinopril. She has history of hypothyroidism, has been on levothyroxine TSH was elevated 2 months ago. She has history of cerebral palsy and chronic muscle spasm she has been on tizanidine, tramadol for pain and muscle spasm. Currently, blood pressure has been in the 160 systolic, other vital signs are stable, afebrile. Preoperative routine blood work that was done on January 13, 2021 revealed hemoglobin of 11 g/dL, otherwise unremarkable. She is on IV cefazolin for perioperative prophylaxis. [facility] Medical History (Updated 03/11/21 @ 17:[address] Ronaldo Ling MD) Bipolar 1 disorder Cerebral palsy Fibromyalgia HBP (high blood pressure) Hypothyroid Home Medications fluticasone propionate 2 spray NASAL DAILY 01/03/16 [History Last Taken 10/21/18] tizanidine 4 mg PO 4X/DAY 01/03/16 [History Last Taken 10/21/18] aspirin 81 mg chewable tablet 81 mg PO DAILY 12/16/17 [History Last Taken 06/19/19] Metamucil 4 cap PO DAILY 10/21/18 [History Last Taken 10/21/18] lisinopril 5 mg PO DAILY 10/21/18 [History Last Taken 04/30/20] multivitamin 1 ea PO DAILY 12/02/18 [History Last Taken Unknown] lorazepam 0.5 mg PO TID 06/22/19 [History Last Taken 04/30/20] polyethylene glycol 3350 17 gm PO DAILY 06/22/19 [History Last Taken Unknown] albuterol sulfate 1 - 2 puff INHALATION Q4H PRN PRN 04/16/20 [History Last Taken Unknown] alum-mag hydroxide-simeth 30 ml PO Q4H PRN PRN 04/16/20 [History Last Taken Unknown] diclofenac sodium 1 applic TOPICAL TID 04/16/20 [History Last Taken Unknown] hydrocortisone-aloe vera 1 applic TOPICAL DAILY 04/16/20 [History Last Taken Unknown] meclizine 12.5 mg PO DAILY PRN PRN 04/16/20 [History Last Taken Unknown] pseudoephedrine-guaifenesin 1 ea PO BID 04/16/20 [History Last Taken Unknown] acetaminophen 1,000 mg PO Q6H PRN tab 05/13/20 [Rx Last Taken Unknown] alum-mag hydroxide-simeth 15 ml PO Q6H PRN PRN udc 05/13/20 [Rx Last Taken Unknown] potassium chloride 10 mEq tablet,extended release 10 meq PO DAILY 12/02/20 [History Last Taken Unknown] Nystatin 15 g TP PRN PRN 01/07/21 [History Last Taken Unknown] buprenorphine 1 ea TD TH 01/07/21 [History Last Taken Unknown] cyanocobalamin (vitamin B-12) 1,000 mcg IM Q30D 01/07/21 [History Last Taken 12/17/20] promethazine 25 mg PO Q4H PRN PRN 01/07/21 [History Last Taken Unknown] tramadol 50 mg PO PRN PRN 01/07/21 [History Last Taken Unknown] tramadol 100 mg PO BREAKFAST 01/07/21 [History Last Taken Unknown] adalid root-pyridoxine HCl(B6) 550 cap PO DAILY 02/25/21 [History Last Taken 02/24/21] levothyroxine [Synthroid] 100 mcg PO DAILY 02/25/21 [History Last Taken Unknown] famotidine [Pepcid] 40 mg PO BID 03/10/21 [History Last Taken Unknown] gabapentin 100 mg PO TID 03/10/21 [History Last Taken Unknown] Allergy/AdvReac Type Severity Reaction Status Date / Time lithium Allergy Mild Vomiting Verified 03/11/21 08:11 aspartame Allergy Itching Verified 03/11/21 08:11 carrot Allergy Food Verified 03/11/21 08:11 Allergy ciclesonide [From [place]] Allergy Shortness Verified 03/11/21 08:11 of breath diphenhydramine HCl Allergy Rash Verified 03/11/21 08:11 [From Benadryl] imipramine Allergy Other Verified 03/11/21 08:11 levofloxacin [From Levaquin] Allergy Itching Verified 03/11/21 08:11 onabotulinumtoxinA Allergy Itching Verified 03/11/21 08:11 [From Botox] Penicillins Allergy Rash Verified 03/11/21 08:11 topiramate [From Topamax] Allergy Other Verified 03/11/21 08:11 baclofen AdvReac Severe vomitting Verified 03/11/21 08:11 erythromycin base AdvReac Severe chest pain Verified 03/11/21 08:11 fentanyl AdvReac Severe vomitting Verified 03/11/21 08:11 lubiprostone [From Amitiza] AdvReac Severe vomitting Verified 03/11/21 08:11 ondansetron [From Zofran] AdvReac Severe vomitting Verified 03/11/21 08:11 oxycodone AdvReac Severe vomitting Verified 03/11/21 08:11 oxymorphone AdvReac Severe ABD pain Verified 03/11/21 08:11 and vomitting pregabalin [From Lyrica] AdvReac Severe eyes would Verified 03/11/21 08:11 stay closed codeine AdvReac nausea Verified 03/11/21 08:11 sertraline [From Zoloft] AdvReac serotoin Verified 03/11/21 08:11 syndrome environmental Allergy Other Uncoded 03/11/21 08:11 no significant family history Surgical History (Updated 03/11/21 @ 17:[address] Ronaldo Ling MD) History of total left knee replacement Social History (Updated 01/10/21 @ 13:51 by Armand ESPOSITO, PA) Smoking Status: Never smoker ROS Constitutional Constitutional: Denies anorexia, chills, fatigue, fever(s) or malaise Eyes Eyes: Denies blurry vision, change in eye color, change in vision, double vision or eye pain ENT HEENT: Denies ear pain, epistaxis, headache(s), nasal congestion, post nasal drip or sore throat Cardiovascular Cardiovascular: Denies chest pain, dyspnea on exertion, edema, lightheadedness, orthopnea, palpitations, paroxysmal nocturnal dyspnea or syncope Respiratory/Chest Respiratory/Chest: Denies cough, dyspnea, hemoptysis, productive cough, shortness of breath at rest, shortness of breath with exertion or wheezing Gastrointestinal Gastrointestinal: Denies abdominal pain, constipation, diarrhea, hematemesis, hematochezia, melena, nausea or vomiting Genitourinary Genitourinary: Denies burning urination, dysuria, hematuria, urinary hesitancy or urinary urgency Musculoskeletal Musculoskeletal: Reports joint pain; Denies arthralgias, back pain, joint swelling, myalgias or neck pain Neurologic Neurologic: Denies confusion, dizziness, focal weakness, headache(s), numbness, paresthesias, seizures, tingling or tremor(s) Psychiatric Psychiatric: Denies anxiety, depression, hallucinations, homicidal ideation or suicidal ideation Endocrine Endocrinology: Denies change in body appearance, cold intolerance, heat intolerance, polydipsia or polyuria Hematologic/Lymphatic Hematologic/Lymphatic: Denies easy bleeding, easy bruising or lymphadenopathy Allergic/Immunologic Allergic/Immunologic: Denies itchy eyes, rhinitis, throat swelling, tongue swelling, hives, urticaria or wheezing Physical Exam Const alert, oriented x3, no apparent distress and no limitations General Appearance: cooperative, comfortable and well kempt HEENT normocephalic, head/scalp atraumatic and moist oral mucous membranes Head and Scalp: normocephalic and atraumatic Eyes PERRL, EOMs intact bilaterally, conjunctivae normal and no scleral icterus General Eye: normal appearance of both eyes Periorbital: periorbital findings normal Neck no lymphadenopathy, supple, no meningeal signs, no JVD and no carotid bruits General: trachea midline Thyroid: thyroid normal Resp normal respiratory effort, normal air movement and clear to auscultation bilaterally Auscultation: Negative for crackles, rales, rhonchi or wheezes Cardio regular rate, regular rhythm, S1 normal heart sound, S2 normal heart sound, no murmurs and no JVD Peripheral Pulses: pulses 2+ throughout GI normal to inspection, nondistended, normoactive bowel sounds, soft to palpation, non-tender and non-distended; Negative for hepatosplenomegaly Auscultation: normoactive bowel sounds Extremity normal to inspection, full ROM and no clubbing, cyanosis or edema Skin no rashes or lesions noted, no wounds and no petechiae Neuro oriented x3, CN's II-XII intact bilaterally and moves all extremities Sensorium / Orientation: alert Speech: speech normal Motor Exam: strength 5/5 throughout Psych mental status grossly normal, affect normal and denies hallucinations Lab / Micro Data Result Diagrams: 01/13/21 09:57 01/13/21 09:57 Labs: Laboratory Results - last 24 hr 03/11/21 03/11/21 08:35 14:52 POC Glucose 88 169 H Radiology Impression Knee X-Ray 03/11/21 14:30 IMPRESSION: Status post right total knee replacement. There is good alignment. Postoperative soft tissue changes. Electronically Signed: Guerrero Hooper MD at 14:50 EDT , Service support , Charges/Coding Visit Charges Inpatient E&M: 32595 Init Hosp L2
[2021-03-11] MEDS: tiZANidine HCl 2 MG Tablet 4 MG PO ×2 (18:11→22:33)
[2021-03-11] MEDS: HYDROcodone Bitartrate/Apap 5/325 Tablet PO (19:50)
[2021-03-11] MEDS: LORazepam 0.5 MG Tablet PO (22:33)
[2021-03-11] MEDS: Gabapentin 100 MG Capsule PO (22:33)
[2021-03-11] MEDS: Famotidine 20 MG Tablet 40 MG PO (22:33)
[2021-03-11] MEDS: Lactated Ringers 1,000 ML 125 ML IV (22:37)
[2021-03-11] MEDS: hydrALAZINE 20 MG/ML Vial 10 MG IV (22:45)
[2021-03-12] MEDS: HYDROcodone Bitartrate/Apap 5/325 Tablet PO ×4 (01:54→21:30)
[2021-03-12 03:20] VITALS: BP 155/65; PULSE 89; RESP 16; TEMP 37.2; O2SAT 99
[2021-03-12 05:45] LABS: Hematocrit 32.5 % (37-47); Hemoglobin 10.6 g/dL (12.0-15.0); Mean Corp Hgb Conc 32.6 g/dL (32-36); Mean Corpuscular Hgb 29.9 pg (27.0-32.0); Mean Corpuscular Volume 91.5 fL (81-99); Mean Platelet Vol. 8.3 fl (6.2-12.0); Platelet Count 243 K/mm3 (150-450); RBC Distribution Width CV 12.6 % (11.6-14.6); RBC Distribution Width SD 41.9 fl (35.1-43.9); Red Blood Count 3.55 M/mm3 (4.2-5.4); White Blood Count 10.7 K/mm3 (4.4-11.0)
[2021-03-12 06:10] LABS: Anion Gap 6 (5-15); BUN 12 mg/dL (7-18); BUN/Creat Ratio 12.5 RATIO (10-20); Calcium,Total 8.4 mg/dL (8.5-10.1); Chloride 104 mmol/L (98-107); Creatinine, Serum 0.96 mg/dL (0.55-1.02); EST Glomerular Filtration Rate 62 mL/min (>60); Est Glom Filt Rate - Afr Amer 76 mL/min (>60); Estimated Creatinine Clearance 51.12 ml/min; Glucose 138 mg/dL (74-106); Potassium 4.4 mmol/L (3.5-5.1); Sodium Level 139 mmol/L (136-145); Thyroid Stim Hormone (TSH) 1.83 uIU/mL (0.358-3.74)
[2021-03-12] MEDS: Cefazolin 1 GM/50 ML BAG IV (06:16)
[2021-03-12] MEDS: Gabapentin 100 MG Capsule PO ×3 (06:17→21:30)
[2021-03-12] MEDS: LORazepam 0.5 MG Tablet PO ×3 (06:17→21:30)
[2021-03-12] MEDS: Levothyroxine 100 MCG Tablet PO (06:17)
[2021-03-12] MEDS: APIXABAN 2.5 MG TABLET PO ×2 (06:17→21:30)
[2021-03-12] MEDS: Potassium Chloride Oral Tablet 10 MEQ PO (08:51)
[2021-03-12] MEDS: traMADol 50 MG Tablet 100 MG PO ×2 (08:53→14:38)
[2021-03-12] MEDS: Polyethylene Glycol 3350 17 GM PACKET PO (08:53)
[2021-03-12] MEDS: Lisinopril 5 MG Tablet PO (08:54)
[2021-03-12] MEDS: Famotidine 20 MG Tablet 40 MG PO ×2 (08:54→21:30)
[2021-03-12] MEDS: tiZANidine HCl 2 MG Tablet 4 MG PO ×4 (08:54→21:30)
--- NOTE | 2021-03-12 09:06 | CASEMGMT ---
Social Work Note Per professor of rhetoric questions, pt has completed HCPOA and LW and provided copies to [facility]. SW reviewed chart, both LW and HCPOA are on file. SW printed off documents and placed on pt's chart. Bethany Almanza MARINE EQUIPMENT SALES ENGINEER, COMPUTER NETWORK ENGINEER
[2021-03-12 09:32] VITALS: BP 141/51; PULSE 85; RESP 18; TEMP 37.2; O2SAT 99
--- NOTE | 2021-03-12 10:15 | CASEMGMT ---
Social Work Note Pt is listed as being from [facility]. SW in to speak with pt. SW introduced self and role at [facility]. PT currently in room. PT recommending pt go to SNF initially as pt is requiring more assistance and [facility] will not be able to provide additional assistance. Pt states she will not go back to TCU. Patient was provided a list of SNF providers including quality and resource use data and consistent with the patient?s preferred geographic region, medical needs, and insurance network. Pt states she would go to [facility] as she is already at [facility]. SW explained that this worker will need to send referral to determine if [facility] will accept pt. Pt states if [facility] is not able to accept then her next choices would be [facility] or [facility]. Pt asked if this had been discussed with her POA. SW informed pt that she is her own person, is able to make own decisions. Pt states she understands but would like to udate her POA. Pt states she will be calling her POA. BRYCE placed a call to Bethany at [facility] and provided referral. SW faxed referral. Plan: SNF pending acceptance Bethany Almanza SUPERVISING NURSE, ENGLISH AS A SECOND LANGUAGE INSTRUCTOR
--- NOTE | 2021-03-12 10:30 | CASEMGMT ---
Social Work Note SW reviewed chart. Pt has CM Aimee Guzman. SW placed a call to Aimee Guzman and updated her on pt's admission to [facility] and plan of [facility]. BRYCE reviewed chart, pt with Cerebral Palsy and Bipolar Disorder. SW asked Aimee Guzman about SSI or SSDI. Aimee states pt gets SSDI due to both Mental Health and Physical Health. Aimee states pt was in counseling/CM services before but pt hasn't had any for the last 4-5 years. Aimee marrufo pt does have hx of Psychiatric Placement with the last once being October 2018. Aimee asked to be updated when and where pt is discharged to. Due to pt receiving SSDI to both Mental Health and Physical Health pt will trip the screen for PAS/RR. Referral would need to be sent to [facility] and pt would need to remain at [facility] until results from [facility] are obtained. These results will not be back today. Plan: [facility] pending acceptance Bethany Almanza NURSE SPECIALIST, ASSOCIATE SOFTWARE ENGINEER
--- NOTE | 2021-03-12 12:40 | PCM.PN.ORT ---
Subjective Subjective Seen and examined doing okay requesting increase in tramadol Objective Data Objective Data Vital Signs: Vital Signs Temp Pulse Resp BP Pulse Ox 99.0 F 85 18 141/51 H 99 03/12/21 09:32 03/12/21 09:32 03/12/21 09:32 03/12/21 09:32 03/12/21 09:32 Oxygen Flow Rate (L/min) 6 Oxygen Delivery Method Room Air Weight: 192 lb 10.944 oz Body Mass Index (BMI) 33.0 Intake & Output: Intake and Output for Last 24 Hours 03/10/21 03/11/21 03/12/21 23:59 23:59 23:59 Intake Total 2396.17 / 3196.17 2124.25 / 2124.25 Output Total 200 / 600 1900 / 1900 Balance 2196.17 / 2596.17 224.25 / 224.25 Lab / Micro Data Result Diagrams: 03/12/21 05:38 03/12/21 05:38 Labs: Laboratory Results - last 24 hr 03/11/21 03/12/21 03/12/21 14:52 05:38 05:38 WBC 10.7 RBC 3.55 L Hgb 10.6 L Hct 32.5 L MCV 91.5 MCH 29.9 MCHC 32.6 RDW Std Deviation 41.9 RDW Coeff of Lindsey 12.6 Plt Count 243 MPV 8.3 Sodium 139 Potassium 4.4 Chloride 104 Carbon Dioxide 29.0 Anion Gap 6 BUN 12 Creatinine 0.96 Estim Creat Clear Calc 51.12 Est GFR (MDRD) Af Amer 76 Est GFR (MDRD) Non-Af 62 BUN/Creatinine Ratio 12.5 Glucose 138 H Calcium 8.4 L TSH 1.83 POC Glucose 169 H Micro: Microbiology 02/26/21 10:28 Swab (Method) Nasal Screen MRSA/MSSA - Final 01/13/21 09:57 Swab (Method) Nasal Screen MRSA/MSSA - Final Radiography Diagnostic Testing: Radiology Impression Knee X-Ray 03/11/21 14:30 IMPRESSION: Status post right total knee replacement. There is good alignment. Postoperative soft tissue changes. Electronically Signed: Guerrero Hooper MD at 14:50 EDT , Service support , Physical Exam Const alert and oriented x3 General Appearance: cooperative Extremity Extremity Narrative: Dressing with mild bloody drainage on inferior aspect still intact compartments soft neurovascular unchanged Assessment & Plan Assessment/Plan (1) Status post right knee replacement: PLAN: Postop day #1 status post right total knee arthroplasty DVT prophylaxis SCDs CHARANJIT chavez and Ashley PT OT weightbearing as tolerated Discharge to nursing facility when bed available Follow-up 2 weeks Dressing to be changed 72 hours postop prior to for shower then daily shower and dressing change
--- NOTE | 2021-03-12 12:42 | DS.PCM_ITS ---
Providers Date of Admission: 03/12/21 Primary Care Physician: Dr. Alex Self MD Consultations 03/11/21 16:40 Consult: Hospitalist Routine Consulting Provider: Ronaldo Ling Reason for Consult: HTN in PACU EMERGENT Consult: No MD Notified: Yes Date Notified:: 03/11/21 Time Notified: 16:40 Method of Notification: Page Reason For Visit: RT TOTAL KNEE W KEVON Diagnosis Discharge Diagnosis (1) Status post right knee replacement: Status: Acute Code(s): Z96.651 - Presence of right artificial knee joint Plan: The patient has with long-standing history of knee DJD and has failed conservative treatment. Patient wished to undergo elective [robotic assisted] total knee arthroplasty and underwent the aforementioned procedure on the admission date without complications. patient did receive pre-and postoperative antibiotics which were discontinued within 23 hours postoperatively. patient did receive [ general anesthesia and adductor canal block ]and the pain was controlled postoperatively with p.o. and IV pain medication. There was minimal intraoperative blood loss he did [receive 2 g of tranexamic acid ]and his vital signs and labs were stable postoperatively and patient [did not require a blood transfusion]. patient was seen by physical therapy and did progress with ambulation. Postoperatively was started on both mechanical and chemical DVT prophylaxis for which patient will continue [ Eliquis 2.5 mg twice daily] for 2 additional weeks post hospital discharge. Mepilex AG dressing will stay on for 72 hours postoperatively at which time patient will begin showering on postop day #3 with daily dressing changes. Encouraged patient to achieve full range of motion as soon as possible, Patient will [start physical therapy] and will fo llow-up in the office in 2 weeks for wound check. There is no intrahospital complications . Medications at Discharge Home Medications fluticasone propionate 2 spray NASAL DAILY 01/03/16 tizanidine 4 mg PO 4X/DAY 01/03/16 aspirin 81 mg chewable tablet 81 mg PO DAILY 12/16/17 Metamucil 4 cap PO DAILY 10/21/18 lisinopril 5 mg PO DAILY 10/21/18 multivitamin 1 ea PO DAILY 12/02/18 lorazepam 0.5 mg PO TID 06/22/19 polyethylene glycol 3350 17 g PO DAILY 06/22/19 albuterol sulfate 1 - 2 puff INHALATION Q4H PRN PRN 04/16/20 alum-mag hydroxide-simeth 30 ml PO Q4H PRN PRN 04/16/20 diclofenac sodium 1 applic TOPICAL TID 04/16/20 hydrocortisone-aloe vera 1 applic TOPICAL DAILY 04/16/20 meclizine 12.5 mg PO DAILY PRN PRN 04/16/20 pseudoephedrine-guaifenesin 1 ea PO BID 04/16/20 alum-mag hydroxide-simeth 15 ml PO Q6H PRN PRN udc 05/13/20 potassium chloride 10 mEq tablet,extended release 10 meq PO DAILY 12/02/20 Nystatin 15 g TP PRN PRN 01/07/21 cyanocobalamin (vitamin B-12) 1,000 mcg IM Q30D 01/07/21 promethazine 25 mg PO Q4H PRN PRN 01/07/21 levothyroxine [Synthroid] 100 mcg PO DAILY 02/25/21 famotidine [Pepcid] 40 mg PO BID 03/10/21 apixaban [Eliquis] 2.5 mg PO BID #30 tab 03/12/21 hydrocodone-acetaminophen 1 tab PO Q4H PRN 7 Days #60 tab 03/12/21 tramadol 100 mg PO TID PRN PRN #60 tab 03/12/21 gabapentin 100 mg tablet 300 mg PO TID tab 03/24/21 ABG / Lab / Microbiology Data Result Diagrams: 03/13/21 05:31 03/12/21 05:38 Laboratory: Laboratory Results - last 24 hr 03/11/21 03/12/21 03/12/21 14:52 05:38 05:38 WBC 10.7 RBC 3.55 L Hgb 10.6 L Hct 32.5 L MCV 91.5 MCH 29.9 MCHC 32.6 RDW Std Deviation 41.9 RDW Coeff of Lindsey 12.6 Plt Count 243 MPV 8.3 Sodium 139 Potassium 4.4 Chloride 104 Carbon Dioxide 29.0 Anion Gap 6 BUN 12 Creatinine 0.96 Estim Creat Clear Calc 51.12 Est GFR (MDRD) Af Amer 76 Est GFR (MDRD) Non-Af 62 BUN/Creatinine Ratio 12.5 Glucose 138 H Calcium 8.4 L TSH 1.83 POC Glucose 169 H Microbiology: Microbiology 02/26/21 10:28 Swab (Method) Nasal Screen MRSA/MSSA - Final 01/13/21 09:57 Swab (Method) Nasal Screen MRSA/MSSA - Final Radiography Diagnostic Testing: Radiology Impression Knee X-Ray 03/11/21 14:30 IMPRESSION: Status post right total knee replacement. There is good alignment. Postoperative soft tissue changes. Electronically Signed: Guerrero Hooper MD at 14:50 EDT , Service support , D/C Instructions Weight Bearing Status: Weight bearing as tolerated Additional Dressing/Incision Instructions: Ice and elevate one week while not ambulating. Ambulation is encouraged. Weightbearing as tolerated. Use assistive devise for stability. Encourage FULL knee extension and flexion 1 time EVERY time you get up and down and MULTIPLE times per day. No showering 72 hours after surgery. Begin showering postop day #3. Remove the dressing prior to shower and gently wash with warm water and antibacterial soap then pat dry and place abdominal pad (or plain gauze) and CHARANJIT hose over top. This is to be done daily. Do not submerge for 3 weeks. If not showering daily after the initial 72 hours then you must clean incision and change dressing daily. Do not allow animals near the incision area. Keep clean. Follow anticoagulation recommendations as prescribed. Do not take any NSAIDs while on blood thinner. Do not take any additional narcotic pain medication other than what was prescribed on you surgery day without discussing with physician. Start physical therapy. If you are not currently scheduled for physical therapy or you are unsure of appointment time please call office [facility] to arrange. Call Dr. Montelongo with any concerns. Meaningful Use Info Meaningful Use Diagnoses (Choose all that apply): None applicable Discharge Plan Admission Admit Date/Time: 03/12/21 15:04 Attending Provider: Roshan Monge Primary Care Provider: Alex Self Consulting Providers: Ronaldo Ling Discharge Orders/Prescriptions Prescriptions: New Eliquis 2.5 mg Tablet 2.5 mg PO BID Qty: 30 RF: 0 tramadol 50 mg Tablet 100 mg PO TID PRN PRN (Reason: Pain Score 6-10) Qty: 60 RF: 0 hydrocodone-acetaminophen 5-325 mg tablet 1 tab PO Q4H PRN (Reason: pain) 7 Days Qty: 60 RF: 0 Continued aspirin 81 mg tablet,chewable 81 mg PO DAILY RF: 0 potassium chloride 10 mEq tablet extended release 10 meq PO DAILY RF: 0 tizanidine 4 MG tablet 4 mg PO 4X/DAY RF: 0 fluticasone propionate 1 SPRAY spray,suspension 2 spray NASAL DAILY RF: 0 lisinopril 5 MG tablet 5 mg PO DAILY RF: 0 Metamucil 4 cap PO DAILY RF: 0 multivitamin 1 EACH tablet 1 ea PO DAILY RF: 0 polyethylene glycol 3350 17 GM packet 17 g PO DAILY RF: 0 lorazepam 0.5 MG tablet 0.5 mg PO TID RF: 0 pseudoephedrine-guaifenesin 1 EACH tablet extended release 12 hr 1 ea PO BID RF: 0 meclizine 12.5 MG tablet 12.5 mg PO DAILY PRN PRN (Reason: Vertigo and motion sickness) RF: 0 hydrocortisone-aloe vera 1 APPLIC cream 1 applic topical DAILY RF: 0 albuterol sulfate 1 INHALER inhaler 1 - 2 puff inhalation Q4H PRN PRN (Reason: Sob &/Or Wheezing) RF: 0 alum-mag hydroxide-simeth 30 ML suspension 30 ml PO Q4H PRN PRN (Reason: Constipation) RF: 0 diclofenac sodium 1 APPLIC gel 1 applic topical TID RF: 0 alum-mag hydroxide-simeth 30 ML suspension 15 ml PO Q6H PRN PRN (Reason: Indigestion) RF: 0 cyanocobalamin (vitamin B-12) 1,000 MCG/ML solution 1,000 mcg IM Q30D RF: 0 promethazine 25 MG tablet 25 mg PO Q4H PRN PRN (Reason: Nausea) RF: 0 Nystatin 15 GM Oint...G. 15 g TP PRN PRN (Reason: Rash/Topical Irritation) RF: 0 levothyroxine [Synthroid] 100 mcg Tablet 100 mcg PO DAILY RF: 0 famotidine [Pepcid] 40 mg Tablet 40 mg PO BID RF: 0 Discontinued acetaminophen 500 MG tablet 1,000 mg PO Q6H PRN (Reason: Pain Score 1-3/10) RF: 0 tramadol 50 MG tablet 50 mg PO PRN PRN (Reason: Pain 1-10 Or Fever) RF: 0 tramadol 50 MG tablet 100 mg PO BREAKFAST RF: 0 adalid root-pyridoxine HCl(B6) 325-25 mg Capsule 550 cap PO DAILY RF: 0 No Action gabapentin 100 mg tablet 300 mg PO TID RF: 0 Referrals / Follow Up: Alex Self MD [Primary Care Provider] - Disposition Disposition (needs filled in before D/C Order can be placed): Shelter Facility
[2021-03-12 14:45] VITALS: BP 131/84; PULSE 66; RESP 18; TEMP 36.7; O2SAT 96
--- NOTE | 2021-03-12 14:54 | PN.HOSP_ITS ---
Subjective Subjective pain in leg. has not received any pain meds yet in the AM. Objective Data Objective Data Vital Signs: Vital Signs Temp Pulse Resp BP Pulse Ox 37.2 C 85 18 141/51 H 99 03/12/21 09:32 03/12/21 09:32 03/12/21 09:32 03/12/21 09:32 03/12/21 09:32 Oxygen Flow Rate (L/min) 6 Oxygen Delivery Method Room Air Weight: 87.4 kg Body Mass Index (BMI) 33.0 Intake & Output: Intake and Output for Last 24 Hours 03/10/21 03/11/21 03/12/21 23:59 23:59 23:59 Intake Total 2396.17 / 3196.17 2124.25 / 2124.25 Output Total 200 / 600 1900 / 1900 Balance 2196.17 / 2596.17 224.25 / 224.25 Lab / Micro Data Result Diagrams: 03/12/21 05:38 03/12/21 05:38 Labs: Laboratory Results - last 24 hr 03/11/21 03/12/21 03/12/21 14:52 05:38 05:38 WBC 10.7 RBC 3.55 L Hgb 10.6 L Hct 32.5 L MCV 91.5 MCH 29.9 MCHC 32.6 RDW Std Deviation 41.9 RDW Coeff of Lindsey 12.6 Plt Count 243 MPV 8.3 Sodium 139 Potassium 4.4 Chloride 104 Carbon Dioxide 29.0 Anion Gap 6 BUN 12 Creatinine 0.96 Estim Creat Clear Calc 51.12 Est GFR (MDRD) Af Amer 76 Est GFR (MDRD) Non-Af 62 BUN/Creatinine Ratio 12.5 Glucose 138 H Calcium 8.4 L TSH 1.83 POC Glucose 169 H Micro: Microbiology 02/26/21 10:28 Swab (Method) Nasal Screen MRSA/MSSA - Final 01/13/21 09:57 Swab (Method) Nasal Screen MRSA/MSSA - Final Physical Exam Const alert and no apparent distress Exam Limitations: no limitations HEENT Head and Scalp: normocephalic Psych affect normal Assessment & Plan Assessment/Plan (1) Status post right knee replacement: (2) Bipolar disorder: (3) Cerebral palsy: (4) Hypothyroidism: (5) Hypertension: (6) Muscle spasm: PLAN: This is a 66 years old female patient underwent elective CT-guided robotic assisted right total knee arthroplasty and I am seeing this patient for postoperative medical management. #[address]-guided robotic assisted right total knee arthroplasty: This was done for right knee osteoarthritis, postoperative day 0. Currently, blood pressure improved, other vital signs are stable. Preoperative routine blood work reviewed as above. She is on IV cefazolin for perioperative prophylaxis. She is on IV Dilaudid for pain and OxyIR as needed for pain. Orthopedic surgery is managing. CBC and BMP for tomorrow ordered. #2 hypertension: Blood pressure was elevated but improved after IV morphine. It is likely because of pain. Plan to continue lisinopril, start IV hydralazine as needed. #3 hypothyroidism: TSH was more than 20 couple of months ago, continue r eduction, will recheck TSH. #4 cerebral palsy/chronic muscle spasm: Supportive treatment, continue tizanidine and tramadol, PT OT. #5 bipolar disorder/anxiety: Continue Ativan as needed. #6 DVT prophylaxis: SCDs, plan to start Eliquis twice daily tomorrow. Medically stable for discharge. Visit Charges Inpatient E&M: 76461 Subs Hosp L1
--- NOTE | 2021-03-12 15:15 | CASEMGMT ---
Social Work Note BRYCE received call from Bethany at [facility] stating pt has been accepted. SW will need to complete PAS/RR as pt is in observation. Pt will trip the screen, results will not be back today and pt will not be able to discharge until results are back. BRYCE updated Physician. BRYCE updated Bethany at [facility] that since pt will trip the screen, pt will stay at [facility] today until results are back. Bethany states understanding. Plan: [facility] Bethany Almanza FOOD ANALYST, PATIENT ASSESSMENT COORDINATOR
--- NOTE | 2021-03-12 15:28 | CHAPLAIN ---
Type of Pastoral Visit _x__ Initial Visit ___ Follow-up Visit ___ On-call Visit ___ General Patient Visit ___ Spiritual Assessment ___ Family Conference ___ Bereavement ___ Rapid Response ___ Code Blue ___ Other (describe below) Pastoral Care Referral From _x__ Patient ___ Family ___ Nurse ___ Physician ___ Contract Design Agent ___ Event Marketing Specialist ___ Other (describe below) Sacrament/Intervention _x__ Active listening ___ Anointing ___ Baptist ___ Bereavement ___ Communion ___ Patricia exploration ___ ___ Life review _x__ Prayer ___ Reconciliation ___ Sacrament of Sick ___ Supportive presence ___ Wedding ___ Other (describe below) Pastoral Comments
--- NOTE | 2021-03-12 15:34 | CM.UR ---
SW let [facility] can take her tomorrow. Pt in agreement with plan, states is glad will be able to go to [facility]. She asked if a friend can take her over, SW called [facility], they would prefer pt go by w/c van rather than have a friend take her, due to COVID precautions. Pt states understanding. She asked if insurance will cover the cost, BRYCE explained her Medicaid should cover it. Pt asked twice what time she will be discharged tomorrow, BRYCE explained twice that we will now know until tomorrow, it will depend on when the physician does the discharge instructions and on when transportation is available. Pt then asked to to see Joshua, the pt advocate. SW let pt know would call him for her. SW called Joshua, let him know pt would like to see him, he will go see pt today. ASH Licona
[2021-03-12 21:32] VITALS: BP 168/96; PULSE 86; RESP 16; TEMP 37; O2SAT 96
[2021-03-12 23:10] VITALS: BP 148/72
[2021-03-13 02:55] VITALS: BP 154/84; PULSE 82; RESP 18; TEMP 36.9; O2SAT 96
[2021-03-13] MEDS: HYDROcodone Bitartrate/Apap 5/325 Tablet PO ×2 (03:00→10:39)
[2021-03-13 05:46] LABS: Hematocrit 29.4 % (37-47); Hemoglobin 9.3 g/dL (12.0-15.0); Mean Corp Hgb Conc 31.6 g/dL (32-36); Mean Corpuscular Hgb 29.7 pg (27.0-32.0); Mean Corpuscular Volume 93.9 fL (81-99); Mean Platelet Vol. 8.9 fl (6.2-12.0); Platelet Count 207 K/mm3 (150-450); RBC Distribution Width SD 44.4 fl (35.1-43.9); Red Blood Count 3.13 M/mm3 (4.2-5.4); White Blood Count 7.7 K/mm3 (4.4-11.0)
[2021-03-13] MEDS: LORazepam 0.5 MG Tablet PO (06:09)
[2021-03-13] MEDS: Levothyroxine 100 MCG Tablet PO (06:09)
[2021-03-13] MEDS: Gabapentin 100 MG Capsule PO (06:09)
[2021-03-13] MEDS: APIXABAN 2.5 MG TABLET PO (08:30)
[2021-03-13] MEDS: Potassium Chloride Oral Tablet 10 MEQ PO (08:30)
[2021-03-13] MEDS: Polyethylene Glycol 3350 17 GM PACKET PO (08:31)
[2021-03-13] MEDS: tiZANidine HCl 2 MG Tablet 4 MG PO (08:31)
[2021-03-13] MEDS: Famotidine 20 MG Tablet 40 MG PO (08:31)
[2021-03-13] MEDS: traMADol 50 MG Tablet 100 MG PO (08:32)
[2021-03-13] MEDS: Lisinopril 5 MG Tablet PO (08:32)
[2021-03-13 08:55] VITALS: BP 151/88; PULSE 78; RESP 18; TEMP 36.7; O2SAT 95
--- NOTE | 2021-03-13 12:02 | CASEMGMT ---
Addendum entered by Bethany Almanza 03/13/21 13:53: BRYCE also placed a call to pt's CM Aimee Guzman at [facility] and left message updating her on pt's discharge to [facility] today. SW faxed discharge paperwork to Aimee per her request. Original Note: Social Work Note Pt is able to discharge to [facility] today. BRYCE updated RN who will update physician to get discharge order. BRYCE faxed completed discharge paperwork to [facility] including transfer to extended care facility, signed medication list, any scripts, COVID tool and COVID test. Original in SNF folder and copy on pt's chart. BRYCE completed [facility]. Original in SNF folder and copy on pt's chart. BRYCE spoke with RN, pt can transport via wheelchair van. SW accessed trip assist and arranged transportation via wheelchair van for 12:30pm. Transportation form completed and placed on SNF folder and copy on pt's chart. BRYCE updated RN on transportation time. BRYCE placed a call to Bethany at [facility] and updated her on transportation time. SW in to speak with pt. SW updated pt on discharge and transportation time to [facility]. Pt states understanding. SW informed pt that this worker will call her POA Patty and update her. Pt states understanding, agreeable to this worker calling Patty. BRYCE placed a call to pt's MICHELLE Brambila and updated her on discharge and transportation time to [facility]. Patty states understanding. Plan: [facility] skilled today with Physician's transporting pt via wheelchair van at 12:30pm Bethany Almanza COLOR CONTROL SUPERVISOR, SPEAKER MOUNTER
--- NOTE | 2021-03-13 13:59 | PHA.DC.MR ---
Pharmacy Service has performed discharge medication reconciliation for this patient upon transfer to [facility]. Home Medications fluticasone propionate 2 spray NASAL DAILY 01/03/16 tizanidine 4 mg PO 4X/DAY 01/03/16 aspirin 81 mg chewable tablet 81 mg PO DAILY 12/16/17 Metamucil 4 cap PO DAILY 10/21/18 lisinopril 5 mg PO DAILY 10/21/18 multivitamin 1 ea PO DAILY 12/02/18 lorazepam 0.5 mg PO TID 06/22/19 polyethylene glycol 3350 17 gm PO DAILY 06/22/19 albuterol sulfate 1 - 2 puff INHALATION Q4H PRN PRN 04/16/20 alum-mag hydroxide-simeth 30 ml PO Q4H PRN PRN 04/16/20 diclofenac sodium 1 applic TOPICAL TID 04/16/20 hydrocortisone-aloe vera 1 applic TOPICAL DAILY 04/16/20 meclizine 12.5 mg PO DAILY PRN PRN 04/16/20 pseudoephedrine-guaifenesin 1 ea PO BID 04/16/20 alum-mag hydroxide-simeth 15 ml PO Q6H PRN PRN udc 05/13/20 potassium chloride 10 mEq tablet,extended release 10 meq PO DAILY 12/02/20 Nystatin 15 g TP PRN PRN 01/07/21 buprenorphine 1 ea TD TH 01/07/21 cyanocobalamin (vitamin B-12) 1,000 mcg IM Q30D 01/07/21 promethazine 25 mg PO Q4H PRN PRN 01/07/21 levothyroxine [Synthroid] 100 mcg PO DAILY 02/25/21 famotidine [Pepcid] 40 mg PO BID 03/10/21 gabapentin 100 mg PO TID 03/10/21 apixaban [Eliquis] 2.5 mg PO BID #30 tab 03/12/21 hydrocodone-acetaminophen 1 tab PO Q4H PRN 7 Days #60 tab 03/12/21 tramadol 100 mg PO TID PRN PRN #60 tab 03/12/21 The patient's discharge medication list was reviewed for discrepancies and discrepancies were resolved.
== END 2021-03-13 13:03 | disposition skilled nursing facility (03) | DRG 470 ==
LOC: SDC 03-12 06:41 → MS3 03-12 06:41
PROVIDERS: Anesthesiology; Admitting Provider Orthopaedic Surgery; PCP Family Medicine; Referring Provider Orthopaedic Surgery
PROC: 0SRC0JZ Replacement of Right Knee Joint with Synthetic Substitute, Open Approach (ICD-10-PCS; CPT 27447; principal; 2021-03-11 11:00)
DX: M17.11 Unilateral primary osteoarthritis, right knee (principal); E66.01 Morbid (severe) obesity due to excess calories; M79.7 Fibromyalgia; I10 Essential (primary) hypertension; E03.9 Hypothyroidism, unspecified; G80.9 Cerebral palsy, unspecified; F31.9 Bipolar disorder, unspecified; F41.9 Anxiety disorder, unspecified; Z68.33 Body mass index [BMI] 33.0-33.9, adult; M62.838 Other muscle spasm
CPT/HCPCS: 36415; 73560; 80048; 80076; 82962; 82985; 83735; 84443; 85025; 85027; 85610; 85730; 86850; 86900; 86901; 87081; 87426; 93005; 97110; 97116; 97162; 97166; 97530; 97535; 99251; C1776; J7120; G0463; J0702; J2405; J3490

== ENCOUNTER 2021-03-24 18:04 | Observation (INO) | payer MEDICARE, MEDICAID, SELFPAY ==
[2021-03-11 17:34] VITALS: BMI 33.0
[2021-03-24] VITALS (9 sets, daily range): BP systolic 165–206; BP diastolic 82–104; PULSE 71–82; RESP 15–21; TEMP 36.7–36.9; O2SAT 96–99; BMI 33.4; BMI 31.7
--- NOTE | 2021-03-24 18:23 | CT_ITS ---
We are attempting to reach an attending provider to discuss findings. An addendum with communication details will be sent when the communication is complete. HISTORY: Neuro deficit, acute, stroke suspected TECHNIQUE: Multiple axial images were obtained of the brain without intravenous contrast. A radiation dose optimization technique was used for this scan. IV Contrast dosage and agent: None. COMPARISON: 12/02/18 FINDINGS: # of images incl. paperwork: 247 PARANASAL SINUSES AND MASTOID AIR CELLS: Clear. INTRACRANIAL HEMORRHAGE: None. BRAIN PARENCHYMA: No CT evidence of acute territorial infarction. Lacunar infarction right periventricular white matter, new since prior study. No intracranial masses. There is preservation of the wilkins/white matter interface. Posterior fossa structures are unremarkable. There is hypoattenuation of the periventricular white matter. Chronic involutional changes are noted. CSF SPACES: Appropriate for age. There is no hydrocephalus. MASS EFFECT: None. CALVARIUM: No acute fracture. CT/STROKE Brain/Head without Cont IMPRESSION: Chronic involutional and white matter changes. No definite acute intracranial process. Acuity of the lacunar infarction is indeterminate. Individualized dose optimization techniques were used for this CT. at 1945 Reported and signed by: Brian Carrasco MD Electronically Signed: Brian Carrasco MD at 19:44 EDT Tel , Service support ,
--- NOTE | 2021-03-24 18:23 | EKG12_ITS ---
Test Reason : DIZZINESS Blood Pressure : / mmHG Vent. Rate : 071 BPM Atrial Rate : 071 BPM P-R Int : 124 ms QRS Dur : 072 ms QT Int : 396 ms P-R-T Axes : 025 022 051 degrees QTc Int : 430 ms Normal sinus rhythm Normal ECG Confirmed by MEDARDO QUESADA, RAÚL ([id number]), assistant production editor ALBER MIRAMONTES ([id number]) on 03/26/2021 9:42:02 AM Referred By: PC Confirmed By:RAÚL BATRES MD
--- NOTE | 2021-03-24 18:24 | RAD_ITS ---
HISTORY: Neuro deficit, acute, stroke suspected EXAMINATION/TECHNIQUE: XR Chest 1 View: 1 view COMPARISON: None FINDINGS: LINES/DEVICES: None. LUNGS: No consolidation, edema or effusion. No pneumothorax. MEDIASTINUM AND CARDIOVASCULAR STRUCTURES: Cardiac silhouette not enlarged. Central airways and mediastinal contour are unremarkable. BONES AND SOFT TISSUES: No acute bony abnormalities. RAD/Chest 1 View IMPRESSION: No radiographic evidence of acute cardiopulmonary disease. at 1908 Reported and signed by: Brian Carrasco MD Electronically Signed: Brian Carrasco MD at 19:07 EDT Tel , Service support ,
--- NOTE | 2021-03-24 18:24 | ED.VIS.STROK ---
HPI History of Present Illness Chief Complaint: Dizziness Narrative Narrative: Patient presents with slurred speech and feeling funny for the past 3 hours or so. Per senior living staff she had slurred speech. She went to sleep and when she woke up her head felt funny and she says she has some vision changes and everything looked blurry. Things are now improving. No cough congestion fever chills. She has chronic chest pain which has not changed. [facility] Medical History (Updated 03/24/21 @ 20:[address] Ziyad Ramirez MD) Bipolar 1 disorder Cerebral palsy Fibromyalgia HBP (high blood pressure) Hypothyroid Home Medications fluticasone propionate 2 spray NASAL DAILY 01/03/16 [History Last Taken 10/21/18] tizanidine 4 mg PO 4X/DAY 01/03/16 [History Last Taken 10/21/18] aspirin 81 mg chewable tablet 81 mg PO DAILY 12/16/17 [History Last Taken 06/19/19] Metamucil 4 cap PO DAILY 10/21/18 [History Last Taken 10/21/18] lisinopril 5 mg PO DAILY 10/21/18 [History Last Taken 04/30/20] multivitamin 1 ea PO DAILY 12/02/18 [History Last Taken Unknown] lorazepam 0.5 mg PO TID 06/22/19 [History Last Taken 04/30/20] polyethylene glycol 3350 17 g PO DAILY 06/22/19 [History Last Taken Unknown] albuterol sulfate 1 - 2 puff INHALATION Q4H PRN PRN 04/16/20 [History Last Taken Unknown] alum-mag hydroxide-simeth 30 ml PO Q8 PRN 04/16/20 [History Last Taken Unknown] diclofenac sodium 1 applic TOPICAL TID 04/16/20 [History Last Taken Unknown] hydrocortisone-aloe vera 1 applic TOPICAL DAILY 04/16/20 [History Last Taken Unknown] meclizine 12.5 mg PO DAILY PRN PRN 04/16/20 [History Last Taken Unknown] pseudoephedrine-guaifenesin 1 ea PO BID 04/16/20 [History Last Taken Unknown] potassium chloride 10 mEq tablet,extended release 10 meq PO DAILY 12/02/20 [History Last Taken Unknown] Nystatin 15 g TP PRN PRN 01/07/21 [History Last Taken Unknown] cyanocobalamin (vitamin B-12) 1,000 mcg IM Q30D 01/07/21 [History Last Taken 12/17/20] promethazine 25 mg PO Q4H PRN PRN 01/07/21 [History Last Taken Unknown] levothyroxine [Synthroid] 100 mcg PO DAILY 02/25/21 [History Last Taken Unknown] famotidine [Pepcid] 40 mg PO BID 03/10/21 [History Last Taken Unknown] apixaban [Eliquis] 2.5 mg PO BID #30 tab 03/12/21 [Rx Last Taken Unknown] hydrocodone-acetaminophen 1 tab PO Q4H PRN 7 Days #60 tab 03/12/21 [Rx Last Taken Unknown] tramadol 100 mg PO TID PRN PRN #60 tab 03/12/21 [Rx Last Taken Unknown] gabapentin 100 mg tablet 300 mg PO TID tab 03/24/21 [History Last Taken Unknown] Allergy/AdvReac Type Severity Reaction Status Date / Time lithium Allergy Mild Vomiting Verified 03/24/21 18:09 aspartame Allergy Itching Verified 03/24/21 18:09 carrot Allergy Food Verified 03/24/21 18:09 Allergy ciclesonide [From Alvesco] Allergy Shortness Verified 03/24/21 18:09 of breath diphenhydramine HCl Allergy Rash Verified 03/24/21 18:09 [From Benadryl] imipramine Allergy Other Verified 03/24/21 18:09 levofloxacin [From Levaquin] Allergy Itching Verified 03/24/21 18:09 onabotulinumtoxinA Allergy Itching Verified 03/24/21 18:09 [From Botox] Penicillins Allergy Rash Verified 03/24/21 18:09 topiramate [From Topamax] Allergy Other Verified 03/24/21 18:09 baclofen AdvReac Severe vomitting Verified 03/24/21 18:09 erythromycin base AdvReac Severe chest pain Verified 03/24/21 18:09 fentanyl AdvReac Severe vomitting Verified 03/24/21 18:09 lubiprostone [From Amitiza] AdvReac Severe vomitting Verified 03/24/21 18:09 ondansetron [From Zofran] AdvReac Severe vomitting Verified 03/24/21 18:09 oxycodone AdvReac Severe vomitting Verified 03/24/21 18:09 oxymorphone AdvReac Severe ABD pain Verified 03/24/21 18:09 and vomitting pregabalin [From Lyrica] AdvReac Severe eyes would Verified 03/24/21 18:09 stay closed codeine AdvReac nausea Verified 03/24/21 18:09 sertraline [From Zoloft] AdvReac serotoin Verified 03/24/21 18:09 syndrome environmental Allergy Other Uncoded 03/24/21 18:09 Surgical History History of total left knee replacement Social History (Updated 01/10/21 @ 13:51 by Armand ESPOSITO, PA) Smoking Status: Never smoker ROS ROS ED ROS Narrative Past medical history: Reviewed, includes hypertension, hyperlipidemia, anemia, schizoaffective disorder, cerebral palsy, irritable bowel syndrome, urinary incontinence, asthma, migraine headaches, depression, bipolar, GERD, hypothyroidism, anxiety, peripheral vascular disease. Medications: Reviewed in the [facility] paperwork, this includes anticoagulation with Eliquis. Social history: Noncontributory Review of systems: All systems negative except as indicated General: No fever Eyes: No visual changes ENT: No upper airway congestion, normal voice Neck: No neck pain Cardiovascular: No chest pain Respiratory: No shortness of breath or cough Gastrointestinal: No abdominal pain, nausea vomiting or diarrhea Genitourinary: No dysuria Musculoskeletal: Denies myalgias no difficulty with ambulation Skin: No rash Neurological: No memory loss, confusion or any focal weakness Psych: No recent behavioral changes Hematologic: No easy bleeding or easy bruising EXAM Physical Exam Narrative Exam Narrative: Physical exam General: Patient appears relatively comfortable in bed. Head: Normocephalic, Atraumatic Eyes: Conjunctiva not pale ENT: Moist mucous membranes. Tongue deviates to the right Neck: Supple, Nontender, No lymphadenopathy Cardiovascular: Regular rate, Regular rhythm Respiratory: No distress, CTA bilaterally Abdomen: Soft, Nontender, Nondistended Back: Nontender, Normal Inspection. Negative for: CVA tenderness Extremities: Right knee surgery site does not show any signs of infection. Skin: Normal color, No rash. Right knee shows an incision from knee surgery. It is clean dry and intact. Neurological: Alert, Normal Strength, Normal Sensation Psychological: Normal affect Const Vital Signs: 03/24/21 18:05 03/24/21 18:23 03/24/21 18:53 Temperature 98.4 F Temperature Source Oral Pulse Rate 81 71 73 Respiratory Rate 16 19 H 18 Blood Pressure 205/104 H 206/92 H 204/89 H Blood Pressure Mean 137 130 127 Pulse Ox 98 96 97 Oxygen Delivery Method Room Air Room Air Room Air 03/24/21 19:23 03/24/21 19:52 Temperature Temperature Source Pulse Rate 72 78 Respiratory Rate 17 21 H Blood Pressure 191/85 H 165/94 H Blood Pressure Mean 120 117 Pulse Ox 98 98 Oxygen Delivery Method Room Air STROKE Vital Signs/Narrative: Vital Signs Temp Pulse Resp BP Pulse Ox 03/24/21 19:52 78 21 H 165/94 H 98 03/24/21 19:23 72 17 191/85 H 98 03/24/21 18:53 73 18 204/89 H 97 03/24/21 18:23 71 19 H 206/92 H 96 03/24/21 18:05 98.4 F 81 16 205/104 H 98 NIHSS Initial: 1a Level of Consciousness: 0 1b LOC Questions (Score 2 if aphasic/stupor): 0 1c LOC Commands (Only score 1st attempt): 0 2 Best Gaze (If aphasic, use reflexive mvmts.): 0 3 Visual: 0 4 Facial Palsy: 0 5 Motor Arm Right (UN = amputation/fusion): 0 5 Motor Arm Left: 0 6 Motor Leg Right: 0 6 Motor Leg Left: 0 7 Limb ataxia (Only + if out of proportion): 0 8 Sensory (Aphasia/stupor=0 or 1, coma=2): 0 9 Best Language: 0 10 Dysarthria (mute, coma=2, intubated=UN): 0 11 Extinction and Inattention (only scored if +): 0 Total Score: 0 MDM MDM MDM Narrative Medical decision making narrative: Patient's work-up is significant for a remote lacunar infarct however this is new since last CT. Regardless she has new neurological symptoms she had apparent slurred speech some vision changes and she has tongue deviations. I will admit her for an MRI. Lab Data Labs: Laboratory Results - last 24 hr 03/24/21 03/24/21 03/24/21 17:45 17:45 17:45 WBC 7.4 RBC 3.45 L Hgb 10.0 L Hct 31.7 L MCV 91.9 MCH 29.0 MCHC 31.5 L RDW Std Deviation 42.2 RDW Coeff of Lindsey 13.0 Plt Count 389 MPV 8.6 Immature Gran % (Auto) 0.300 Neut % (Auto) 64.3 Lymph % (Auto) 24.1 Runnels % (Auto) 9.3 Eos % (Auto) 1.5 Baso % (Auto) 0.5 Absolute Neuts (auto) 4.8 Absolute Lymphs (auto) 1.78 Nucleated RBC % 0 PT 14.4 INR 1.2 APTT 28.9 Sodium 136 Potassium 3.7 Chloride 104 Carbon Dioxide 28.0 Anion Gap 4 L BUN 6 L Creatinine 0.87 Estim Creat Clear Calc 56.41 Est GFR (MDRD) Af Amer 84 Est GFR (MDRD) Non-Af 70 BUN/Creatinine Ratio 6.9 L Glucose 80 Calcium 8.7 Troponin I < 0.015 POC Glucose 03/24/21 18:53 WBC RBC Hgb Hct MCV MCH MCHC RDW Std Deviation RDW Coeff of Lindsey Plt Count MPV Immature Gran % (Auto) Neut % (Auto) Lymph % (Auto) Runnels % (Auto) Eos % (Auto) Baso % (Auto) Absolute Neuts (auto) Absolute Lymphs (auto) Nucleated RBC % PT INR APTT Sodium Potassium Chloride Carbon Dioxide Anion Gap BUN Creatinine Estim Creat Clear Calc Est GFR (MDRD) Af Amer Est GFR (MDRD) Non-Af BUN/Creatinine Ratio Glucose Calcium Troponin I POC Glucose 86 Radiography Diagnostic Testing: Radiology Impression Brain CT 03/24/21 18:23 IMPRESSION: Chronic involutional and white matter changes. No definite acute intracranial process. Acuity of the lacunar infarction is indeterminate. Individualized dose optimization techniques were used for this CT. at 1945 Reported and signed by: Brian Carrasco MD Electronically Signed: Brian Carrasco MD at 19:44 EDT Tel , Service support , ADDENDUM: 03/24/211958 IMPRESSION: Chronic involutional and white matter changes. No definite acute intracranial process. Acuity of the lacunar infarction is indeterminate. Individualized dose optimization techniques were used for this CT. at 1945 Reported and signed by: Brian Carrasco MD N.B. : The above information has been verbally conveyed by Brian Carrasco MD to Ziyad Kc MD, MD, on 03/24/2021 19:52:20 (ET). Electronically Signed: Brian Carrasco MD at 19:44 EDT Tel , Service support , Chest X-Ray 03/24/21 18:24 IMPRESSION: No radiographic evidence of acute cardiopulmonary disease. at 1908 Reported and signed by: Brian Carrasco MD Electronically Signed: Brian Carrasco MD at 19:07 EDT Tel , Service support , Discharge Plan Triage Chief Complaint: Dizziness ED Provider: Ziyad Ramirez Dx/Rx/DC Orders Clinical Impression: Brain TIA Prescriptions: No Action aspirin 81 mg tablet,chewable 81 mg PO DAILY RF: 0 potassium chloride 10 mEq tablet extended release 10 meq PO DAILY RF: 0 tizanidine 4 MG tablet 4 mg PO 4X/DAY RF: 0 fluticasone propionate 1 SPRAY spray,suspension 2 spray NASAL DAILY RF: 0 lisinopril 5 MG tablet 5 mg PO DAILY RF: 0 Metamucil 4 cap PO DAILY RF: 0 multivitamin 1 EACH tablet 1 ea PO DAILY RF: 0 polyethylene glycol 3350 17 GM packet 17 g PO DAILY RF: 0 lorazepam 0.5 MG tablet 0.5 mg PO TID RF: 0 pseudoephedrine-guaifenesin 1 EACH tablet extended release 12 hr 1 ea PO BID RF: 0 meclizine 12.5 MG tablet 12.5 mg PO DAILY PRN PRN (Reason: Vertigo and motion sickness) RF: 0 hydrocortisone-aloe vera 1 APPLIC cream 1 applic topical DAILY RF: 0 albuterol sulfate 1 INHALER inhaler 1 - 2 puff inhalation Q4H PRN PRN (Reason: Sob &/Or Wheezing) RF: 0 alum-mag hydroxide-simeth 30 ML suspension 30 ml PO Q8 PRN (Reason: Constipation) RF: 0 diclofenac sodium 1 APPLIC gel 1 applic topical TID RF: 0 cyanocobalamin (vitamin B-12) 1,000 MCG/ML solution 1,000 mcg IM Q30D RF: 0 promethazine 25 MG tablet 25 mg PO Q4H PRN PRN (Reason: Nausea) RF: 0 Nystatin 15 GM Oint...G. 15 g TP PRN PRN (Reason: Rash/Topical Irritation) RF: 0 levothyroxine [Synthroid] 100 mcg Tablet 100 mcg PO DAILY RF: 0 famotidine [Pepcid] 40 mg Tablet 40 mg PO BID RF: 0 Eliquis 2.5 mg Tablet 2.5 mg PO BID Qty: 30 RF: 0 tramadol 50 mg Tablet 100 mg PO TID PRN PRN (Reason: Pain Score 6-10) Qty: 60 RF: 0 hydrocodone-acetaminophen 5-325 mg tablet 1 tab PO Q4H PRN (Reason: pain) 7 Days Qty: 60 RF: 0 gabapentin 100 mg tablet 300 mg PO TID RF: 0 Primary Care Provider: Alex Self Referrals: Alex Self MD [Primary Care Provider] - Disposition Disposition: Acute Care Hospital [facility]
[2021-03-24 18:43] LABS: Absolute Lymphocyte Count 1.78 X10^3/uL (0.83-4.51); Absolute Neutrophil Count 4.8 X10^3/uL (2.0-7.7); Basophil# 0.04 X10^3/uL; Basophil% 0.5 % (0-1); Eosinophil# 0.11 X10^3/uL; Eosinophils% 1.5 % (0-5); Hematocrit 31.7 % (37-47); Lymphocyte # 1.78 X10^3/ul (0.83-4.51); Lymphocyte % 24.1 % (19-41); Mean Corp Hgb Conc 31.5 g/dL (32-36); Mean Corpuscular Volume 91.9 fL (81-99); Mean Platelet Vol. 8.6 fl (6.2-12.0); Monocyte# 0.69 X10^3/uL; Monocyte% 9.3 % (0-10); NRBC Flagged by Analyzer 0 % (0-5); Neutrophil # 4.75 X10^3/uL (2.7-7.7); Neutrophil % 64.3 % (47-70); Platelet Count 389 K/mm3 (150-450); RBC Distribution Width SD 42.2 fl (35.1-43.9); Red Blood Count 3.45 M/mm3 (4.2-5.4); White Blood Count 7.4 K/mm3 (4.4-11.0)
[2021-03-24 18:52] LABS: International Normalized Ratio 1.2; Partial Thromboplast Time 28.9 Seconds (24.1-36.2); Prothrombin Time (Protime)PT. 14.4 SECONDS (11.7-14.9)
[2021-03-24 18:55] LABS: Bedside Glucose 86 mg/dL (70-110)
[2021-03-24 19:02] LABS: Anion Gap 4 (5-15); BUN 6 mg/dL (7-18); BUN/Creat Ratio 6.9 RATIO (10-20); Calcium,Total 8.7 mg/dL (8.5-10.1); Chloride 104 mmol/L (98-107); Creatinine, Serum 0.87 mg/dL (0.55-1.02); EST Glomerular Filtration Rate 70 mL/min (>60); Est Glom Filt Rate - Afr Amer 84 mL/min (>60); Estimated Creatinine Clearance 56.41 ml/min; Glucose 80 mg/dL (74-106); Potassium 3.7 mmol/L (3.5-5.1); Sodium Level 136 mmol/L (136-145)
--- NOTE | 2021-03-24 19:30 | ED.RN ---
verbal order to discontinue [facility]
[2021-03-24] MEDS: Acetaminophen 500 MG Tablet 1000 MG PO (20:16)
--- NOTE | 2021-03-24 20:42 | PCM.HP.STD ---
HPI - General HPI Narrative STEVE FAGAN, is a 66 F who presents with slurred speech, dizziness, and tongue deviation. Per skilled nursing staff patient had slurred speech beginning about 3 hours ago and felt funny when she woke up and reported vision changes at this time. Patient currently reports symptoms have subsided. Patient denies fever, chills, shortness of breath, cough, nausea, vomiting, diarrhea, constipation. Patient does have a history of cerebral palsy and bipolar 1 disorder however patient is not currently on any antidepressants/antipsychotics. [facility] Medical History Anemia Anxiety Asthma Bipolar 1 disorder Cerebral palsy Fibromyalgia GERD (gastroesophageal reflux disease) HBP (high blood pressure) Hypercholesteremia Hyperlipidemia Hypertension Hypothyroid Irritable bowel Kyphosis Migraine Peripheral vascular disease Schizoaffective disorder Home Medications fluticasone propionate 2 spray NASAL DAILY 01/03/16 [History Last Taken 03/24/21] tizanidine 4 mg PO 4X/DAY 01/03/16 [History Last Taken 03/24/21] aspirin 81 mg chewable tablet 81 mg PO DAILY 12/16/17 [History Last Taken 03/24/21] lisinopril 5 mg PO DAILY 10/21/18 [History Last Taken 03/24/21] multivitamin 1 ea PO DAILY 12/02/18 [History Last Taken 03/24/21] lorazepam 0.5 mg PO TID 06/22/19 [History Last Taken 03/24/21] polyethylene glycol 3350 17 g PO DAILY 06/22/19 [History Last Taken 03/22/21] albuterol sulfate 1 - 2 puff INHALATION Q4H PRN PRN 04/16/20 [History Last Taken Unknown] alum-mag hydroxide-simeth 30 ml PO Q8 PRN 04/16/20 [History Last Taken 03/24/21] diclofenac sodium 1 applic TOPICAL TID 04/16/20 [History Last Taken 03/24/21] hydrocortisone-aloe vera 1 applic TOPICAL DAILY 04/16/20 [History Last Taken 03/22/21] meclizine 12.5 mg PO DAILY PRN PRN 04/16/20 [History Last Taken 03/24/21] pseudoephedrine-guaifenesin 1 ea PO BID 04/16/20 [History Last Taken 03/24/21] potassium chloride 10 mEq tablet,extended release 10 meq PO DAILY 12/02/20 [History Last Taken 03/24/21] cyanocobalamin (vitamin B-12) 1,000 mcg IM Q30D 01/07/21 [History Last Taken 03/17/21] promethazine 25 mg PO Q4H PRN PRN 01/07/21 [History Last Taken 03/23/21] levothyroxine [Synthroid] 100 mcg PO DAILY 02/25/21 [History Last Taken 03/24/21] apixaban [Eliquis] 2.5 mg PO BID #30 tab 03/12/21 [Rx Last Taken 03/24/21] calcium polycarbophil [Fiber-Lax] 2,500 mg PO DAILY 03/24/21 [History Last Taken 03/24/21] gabapentin 300 mg PO TID 03/24/21 [History Last Taken 03/24/21] tramadol 50 mg PO DAILY@1200,1600,2000 03/24/21 [History Last Taken 03/24/21] tramadol 100 mg PO DAILY@0800 03/24/21 [History Last Taken 03/24/21] Allergy/AdvReac Type Severity Reaction Status Date / Time lithium Allergy Mild Vomiting Verified 03/24/21 18:09 aspartame Allergy Itching Verified 03/24/21 18:09 carrot Allergy Food Verified 03/24/21 18:09 Allergy ciclesonide [From Alvesco] Allergy Shortness Verified 03/24/21 18:09 of breath diphenhydramine Allergy Other Verified 03/24/21 20:15 [From Benadryl] diphenhydramine HCl Allergy Rash Verified 03/24/21 18:09 [From Benadryl] imipramine Allergy Other Verified 03/24/21 18:09 levofloxacin [From Levaquin] Allergy Itching Verified 03/24/21 18:09 onabotulinumtoxinA Allergy Itching Verified 03/24/21 18:09 [From Botox] Penicillins Allergy Rash Verified 03/24/21 18:09 Sulfa (Sulfonamide Allergy NEEDS Verified 03/24/21 20:15 Antibiotics) FOLLOW-UP topiramate [From Topamax] Allergy Other Verified 03/24/21 18:09 baclofen AdvReac Severe vomitting Verified 03/24/21 18:09 erythromycin base AdvReac Severe chest pain Verified 03/24/21 18:09 fentanyl AdvReac Severe Vomiting Verified 03/24/21 20:11 lubiprostone [From Amitiza] AdvReac Severe Vomiting Verified 03/24/21 20:11 ondansetron [From Zofran] AdvReac Severe Vomiting Verified 03/24/21 20:11 oxycodone AdvReac Severe vomitting Verified 03/24/21 18:09 oxymorphone AdvReac Severe ABD pain Verified 03/24/21 20:11 and vomiting pregabalin [From Lyrica] AdvReac Severe eyes would Verified 03/24/21 18:09 stay closed codeine AdvReac nausea Verified 03/24/21 18:09 sertraline [From Zoloft] AdvReac serotoin Verified 03/24/21 18:09 syndrome environmental Allergy Other Uncoded 03/24/21 18:09 Surgical History History of total left knee replacement Social History Smoking Status: Never smoker ROS Constitutional Constitutional: Denies anorexia, chills or fatigue Eyes Eyes: Reports blurry vision bilateral ENT HEENT: Denies abnormal hearing or dysphagia Cardiovascular Cardiovascular: Denies chest pain, edema or palpitations Respiratory/Chest Respiratory/Chest: Denies cough, shortness of breath at rest or shortness of breath with exertion Gastrointestinal Gastrointestinal: Denies abdominal pain, constipation, diarrhea, nausea or vomiting Genitourinary Genitourinary: Denies dysuria Musculoskeletal Musculoskeletal: Denies back pain, extremity pain or joint pain Integumentary Integumentary: Denies dry skin Neurologic Neurologic: Reports abnormal speech and dizziness; Denies abnormal gait or confusion Psychiatric Psychiatric: Denies anxiety or depression Endocrine Endocrinology: Denies change in body appearance Hematologic/Lymphatic Hematologic/Lymphatic: Denies easy bleeding or easy bruising Vital Signs Vital Signs Vital Signs: 03/24/21 18:05 03/24/21 18:23 03/24/21 18:53 Temperature 98.4 F Temperature Source Oral Pulse Rate 81 71 73 Respiratory Rate 16 19 H 18 Blood Pressure 205/104 H 206/92 H 204/89 H Blood Pressure Mean 137 130 127 Pulse Ox 98 96 97 Oxygen Delivery Method Room Air Room Air Room Air 03/24/21 19:23 03/24/21 19:52 03/24/21 20:00 Temperature 98.2 F Temperature Source Oral Pulse Rate 72 78 79 Respiratory Rate 17 21 H 15 Blood Pressure 191/85 H 165/94 H 165/94 H Blood Pressure Mean 120 117 117 Pulse Ox 98 98 96 Oxygen Delivery Method Room Air Room Air Weight Weight: 194 lb 14.218 oz Body Mass Index (BMI) 33.4 Physical Exam Const alert and oriented x3 General Appearance: cooperative HEENT normocephalic and head/scalp atraumatic Eyes PERRL Neck supple, no JVD and thyroid normal General: trachea midline Lymph Lymphatic: no lymphadenopathy noted Resp normal respiratory effort, normal air movement and clear to auscultation bilaterally Cardio regular rate, regular rhythm, S1 normal heart sound and S2 normal heart sound GI normal to inspection, nondistended, normoactive bowel sounds, soft to palpation and non-tender Extremity normal capillary refill and no clubbing, cyanosis or edema Skin General Skin Exam: no breakdown and turgor normal Lesions: no lesions Rashes: no rashes Neuro CN's II-XII intact bilaterally Psych thought process normal, cooperative and affect normal Appearance: appropriate Lab / Micro Data Result Diagrams: 03/24/21 17:45 03/24/21 17:45 Labs: Laboratory Results - last 24 hr 03/24/21 03/24/21 03/24/21 17:45 17:45 17:45 WBC 7.4 RBC 3.45 L Hgb 10.0 L Hct 31.7 L MCV 91.9 MCH 29.0 MCHC 31.5 L RDW Std Deviation 42.2 RDW Coeff of Lindsey 13.0 Plt Count 389 MPV 8.6 Immature Gran % (Auto) 0.300 Neut % (Auto) 64.3 Lymph % (Auto) 24.1 [place] % (Auto) 9.3 Eos % (Auto) 1.5 Baso % (Auto) 0.5 Absolute Neuts (auto) 4.8 Absolute Lymphs (auto) 1.78 Nucleated RBC % 0 PT 14.4 INR 1.2 APTT 28.9 Sodium 136 Potassium 3.7 Chloride 104 Carbon Dioxide 28.0 Anion Gap 4 L BUN 6 L Creatinine 0.87 Estim Creat Clear Calc 56.41 Est GFR (MDRD) Af Amer 84 Est GFR (MDRD) Non-Af 70 BUN/Creatinine Ratio 6.9 L Glucose 80 Calcium 8.7 Troponin I < 0.015 POC Glucose 03/24/21 18:53 WBC RBC Hgb Hct MCV MCH MCHC RDW Std Deviation RDW Coeff of Lindsey Plt Count MPV Immature Gran % (Auto) Neut % (Auto) Lymph % (Auto) [place] % (Auto) Eos % (Auto) Baso % (Auto) Absolute Neuts (auto) Absolute Lymphs (auto) Nucleated RBC % PT INR APTT Sodium Potassium Chloride Carbon Dioxide Anion Gap BUN Creatinine Estim Creat Clear Calc Est GFR (MDRD) Af Amer Est GFR (MDRD) Non-Af BUN/Creatinine Ratio Glucose Calcium Troponin I POC Glucose [address] 03/24/21 18:23 IMPRESSION: Chronic involutional and white matter changes. No definite acute intracranial process. Acuity of the lacunar infarction is indeterminate. Individualized dose optimization techniques were used for this CT. at 1945 Reported and signed by: Brian Carrasco MD Electronically Signed: Brian Carrasco MD at 19:44 EDT Tel , Service support , ADDENDUM: 03/24/211958 IMPRESSION: Chronic involutional and white matter changes. No definite acute intracranial process. Acuity of the lacunar infarction is indeterminate. Individualized dose optimization techniques were used for this CT. at 1945 Reported and signed by: Brian Carrasco MD N.B. : The above information has been verbally conveyed by Brian Carrasco MD to Ziyad Kc MD, MD, on 03/24/2021 19:52:20 (ET). Electronically Signed: Brian Carrasco MD at 19:44 EDT Tel , Service support , Chest X-Ray 03/24/21 18:24 IMPRESSION: No radiographic evidence of acute cardiopulmonary disease. at 1908 Reported and signed by: Brian Carrasco MD Electronically Signed: Brian Carrasco MD at 19:07 EDT Tel , Service support , Assessment & Plan Assessment/Plan (1) Brain TIA: PLAN: 1. TIA -Admit to PCU for continuous cardiac monitoring and NIHSS trending -Vital signs every 4 per protocol -Cardiac diet pending nursing dysphagia screen -PT, OT, ST eval and treat -O2 per protocol -CBC, CMP, lipid profile, TSH, troponin ordered for a.m. -MRA head and neck without contrast 2. Hypertension -Continue lisinopril daily -Vital signs every 4 hours trend BP and heart rate 3. Hypothyroidism -Continue levothyroxine 100 mcg daily -TSH ordered for a.m. 4. Fibromyalgia -Continue patient home pain medication regimen including gabapentin, tramadol, baclofen, tizanidine. DVT Prophylaxis-not indicated, patient currently anticoagulated on Eliquis and aspirin This patient was seen by SHAZIA Spence under the supervision of Dr. Berry.
--- NOTE | 2021-03-24 22:10 | ED.RN ---
yahir fallon and friend/MICHELLE Brambila notified of patients admission over the phone.
[2021-03-24 23:01] LABS: Bedside Glucose 92 mg/dL (70-110)
[2021-03-24] MEDS: LORazepam 0.5 MG Tablet PO (23:33)
[2021-03-24] MEDS: traMADol 50 MG Tablet PO (23:33)
[2021-03-24] MEDS: APIXABAN 2.5 MG TABLET PO (23:34)
[2021-03-24] MEDS: Gabapentin 300 MG Capsule PO (23:34)
[2021-03-25] VITALS (9 sets, daily range): BP systolic 140–184; BP diastolic 61–98; PULSE 79–89; RESP 14–18; TEMP 36.6–37.2; O2SAT 97–99
[2021-03-25] MEDS: CLARIFY ORDER 1 EACH NOTE ×2 (00:01)
[2021-03-25] MEDS: 0.9% Normal Saline 1,000 ML 75 ML IV (00:44)
--- NOTE | 2021-03-25 01:51 | MRI_ITS ---
STUDY: MRI BRAIN WITHOUT CONTRAST REASON FOR EXAM: Female, 66 years old. CVA TECHNIQUE: Standardized multiplanar fat and water weighted pulse sequences were obtained. COMPARISON: None. FINDINGS: There is mild cerebral atrophy with widening of the extra-axial spaces and ventricular dilatation. There are multiple white matter hyperintensities, distributed throughout the deep white matter tracts of the cerebral hemispheres, consistent with moderate chronic white matter ischemic changes. Normal bilateral basal ganglia. Normal thalami. There is no extra-axial fluid accumulation. Normal flow voids within the major intracranial circulation suggesting patency by spin echo criteria. Normal sella turcica, pituitary gland, infundibular stalk, optic chiasm and hypothalamus. Normal tectal plate and pineal gland. There are chronic white matter ischemic changes of the mary. The midbrain and medulla are otherwise normal. MRI/Brain without Contrast IMPRESSION: No acute intracranial abnormality. Moderate chronic microvascular ischemic changes. Electronically Signed: Ethel Edward MD at 10:42 EDT Tel , Service support ,
[2021-03-25] MEDS: Acetaminophen 325 MG Tablet 650 MG PO (03:53)
[2021-03-25] MEDS: LORazepam 0.5 MG Tablet PO ×2 (06:12→13:14)
[2021-03-25] MEDS: Levothyroxine 100 MCG Tablet PO (06:13)
[2021-03-25] MEDS: Gabapentin 300 MG Capsule PO ×2 (06:13→13:13)
[2021-03-25 06:52] LABS: Absolute Neutrophil Count 3.5 X10^3/uL (2.0-7.7); Basophil# 0.04 X10^3/uL; Basophil% 0.8 % (0-1); Eosinophil# 0.12 X10^3/uL; Eosinophils% 2.3 % (0-5); Hemoglobin 9.7 g/dL (12.0-15.0); Lymphocyte % 20.8 % (19-41); Mean Corp Hgb Conc 31.3 g/dL (32-36); Mean Corpuscular Hgb 28.8 pg (27.0-32.0); Mean Platelet Vol. 8.4 fl (6.2-12.0); Monocyte# 0.58 X10^3/uL; Monocyte% 10.9 % (0-10); NRBC Flagged by Analyzer 0 % (0-5); Neutrophil # 3.45 X10^3/uL (2.7-7.7); Platelet Count 356 K/mm3 (150-450); RBC Distribution Width CV 12.9 % (11.6-14.6); Red Blood Count 3.37 M/mm3 (4.2-5.4); White Blood Count 5.3 K/mm3 (4.4-11.0)
[2021-03-25 07:35] LABS: AST(SGOT) 15 U/L (15-37); Alanine Aminotransfer ALT/SGPT 15 U/L (13-56); Albumin, Serum 2.9 g/dL (3.2-5.0); Alkaline Phosphatase 114 U/L (45-117); Anion Gap 7 (5-15); BUN 6 mg/dL (7-18); BUN/Creat Ratio 7.7 RATIO (10-20); Calcium,Total 8.1 mg/dL (8.5-10.1); Chloride 109 mmol/L (98-107); Cholesterol 168 mg/dL (200); Creatinine, Serum 0.78 mg/dL (0.55-1.02); EST Glomerular Filtration Rate 79 mL/min (>60); Est Glom Filt Rate - Afr Amer 95 mL/min (>60); Estimated Creatinine Clearance 62.92 ml/min; Glucose 102 mg/dL (74-106); High Density Lipoprotein 54 mg/dL; Potassium 3.8 mmol/L (3.5-5.1); Protein, Total 5.9 g/dL (6.4-8.2); Sodium Level 142 mmol/L (136-145); Thyroid Stim Hormone (TSH) 7.66 uIU/mL (0.358-3.74); Triglycerides 82 mg/dL; Very Low Density Lipoprotein 16 mg/dL (5-40)
--- NOTE | 2021-03-25 09:00 | MRI_ITS ---
STUDY: MRA OF THE HEAD WITHOUT CONTRAST REASON FOR EXAM: Female, 66 years old. cva. TECHNIQUE: 3-D myhc-cp-pyxctb (TOF) imaging was performed with MIPs. The study was performed unenhanced. COMPARISON: None. FINDINGS: Patent right cavernous carotid artery. Patent left cavernous carotid artery. Patent right A1 segments of the anterior cerebral artery. Patent left A1 segments of the anterior cerebral artery. Unremarkable anterior communicating artery (ACOM) region. Normal bilateral A2 segments of the anterior cerebral arteries. Patent right M1 and M2 segments of the middle cerebral arteries, with a unremarkable M1 bifurcation. Patent left M1 and M2 segments of the middle cerebral arteries, with a unremarkable M1 bifurcation. There is non-visualization of the right posterior communicating artery (PCOM). There is non-visualization of the left posterior communicating artery (PCOM). Patent basilar artery with a normal basilar bifurcation. Patent bilateral posterior cerebral arteries. MRI/MRA Head ONLY without Contrast IMPRESSION: No large vessel occlusion. Electronically Signed: Ethel Edward MD at 10:44 EDT Tel , Service support ,
--- NOTE | 2021-03-25 09:00 | MRI_ITS ---
STUDY: MRA NECK WITHOUT CONTRAST REASON FOR EXAM: Female, 66 years old. cva TECHNIQUE: Source images were obtained, MIPs were performed. The study was performed unenhanced. COMPARISON: None. FINDINGS: RIGHT CAROTID ARTERIES: Normal right common carotid artery (CCA). There is mild atherosclerotic plaque formation with minimal narrowing of the right carotid bulb. There is mild atherosclerotic plaque formation of the origin of the right internal carotid artery with less than 50% cross sectional diameter stenosis. Normal visualized cervical portion of the right internal carotid artery. Normal origin of the right external carotid artery (ECA). LEFT CAROTID ARTERIES: Normal left common carotid artery (CCA). Normal left common carotid bulb. Normal origin of the left internal carotid (ICA) artery without a hemodynamically significant stenosis. Normal visualized cervical portion of the left internal carotid artery. Normal origin of the left external carotid artery (ECA). VERTEBRAL ARTERIES: Normal antegrade flow within the bilateral vertebral artery without a hemodynamically significant stenosis. MRI/MRA Neck without Contrast IMPRESSION: 1. Mild (40%) (right carotid stenosis. 2. No left carotid stenosis. 3. Patent vertebral arteries bilaterally. Electronically Signed: Low Marin MD at 11:12 EDT Tel , Service support ,
--- NOTE | 2021-03-25 09:17 | CASEMGMT ---
Addendum entered by Pari Donohue 03/25/21 10:20: BRYCE spoke with Bethany at [facility]. Patient is now back in her assisted living apartment. SW told her SW will keep them updated on patient to help determine if she can go back to [place] or if she needs the SNF side again. Pari GARCIA Original Note: Patient is from [facility]. However, she recently went to the long term side ([facility]) March 13. SW will check with patient or [facility] to see if patient is back in [place] or if she is still on the skilled side. Pari GARCIA
[2021-03-25] MEDS: APIXABAN 2.5 MG TABLET PO (10:15)
[2021-03-25] MEDS: Multivitamins,Therapeutic Tablet 1 TABLET PO (10:15)
[2021-03-25] MEDS: Aspirin 81 MG TAB.CHEW PO (10:15)
[2021-03-25] MEDS: tiZANidine HCl 2 MG Tablet 4 MG PO ×2 (10:16→13:13)
[2021-03-25] MEDS: Lisinopril 5 MG Tablet PO (10:16)
[2021-03-25] MEDS: Fluticasone 0.05% 1 SPRAY NASAL.SRY 2 SPRAY NASAL ×2 (10:17→10:28)
[2021-03-25] MEDS: traMADol 50 MG Tablet 100 MG PO (10:26)
[2021-03-25] MEDS: Potassium Chloride Oral Tablet 10 MEQ PO (10:28)
[2021-03-25] MEDS: Polyethylene Glycol 3350 17 GM PACKET PO (10:28)
--- NOTE | 2021-03-25 10:59 | CASEMGMT ---
Patient has a Healthcare Power of Charter Boat Captain and a Healthcare Living Will on file at [facility]. Her Healthcare Power of Charter Boat Captain is her friend Evelyn Santizo. Pari Donohue PRESS LEADER JOSE
[2021-03-25] MEDS: Meclizine 12.5 MG Tablet PO (11:50)
[2021-03-25] MEDS: DICLOFENAC SODIUM 100 GM GEL..GRAM. TOPICAL (13:13)
[2021-03-25] MEDS: traMADol 50 MG Tablet PO (13:14)
--- NOTE | 2021-03-25 13:38 | CASEMGMT ---
BRYCE faxed updates and PT/OT evaluations to [facility]. BRYCE will check in with Cyrus at [facility] to make sure it is ok for patient to return to [place]. BRYCE received a phone call from Aimee Guzman with [facility]. She is patient's case picker and requests that SW fax patient's d/c paperwork. Pari Donohue OIL HEATER INSTALLER JOSE
--- NOTE | 2021-03-25 13:56 | CASEMGMT ---
BRYCE called Cyrus at [facility] [place] and left him a voice mail letting him know patient will be headed back today. BRYCE asked him to call BRYCE if there are any issues with this. Plan: d/c back to [facility] [place]. Pari Donohue PRECISION LENS GENERATORAlina GARCIA
--- NOTE | 2021-03-25 13:58 | PCM.TXEXTCAR ---
Diet 03/24/21 22:11 Diet: Cardiac - Heart Healthy Food consistency:: Regular Liquid Consistency:: Regular/Thin Is pt able to select menu?: Yes Routine Orders/Code Status Enema Type: Fleetz Enema Frequency: Daily PRN Suppository Type: Dulcolax 10mg Suppository Frequency: Daily PRN Wound(s) rt knee: Wound Type: Surgical Incision Problem/Diagnosis (1) Brain TIA: Status: Acute Allergies/Procedures Done in Hospital Allergies lithium Allergy (Mild, Verified 03/24/21 18:09) Vomiting aspartame Allergy (Verified 03/24/21 18:09) Itching carrot Allergy (Verified 03/24/21 18:09) Food Allergy ciclesonide [From Alvesco] Allergy (Verified 03/24/21 18:09) Shortness of breath diphenhydramine [From Benadryl] Allergy (Verified 03/24/21 20:15) Other diphenhydramine HCl [From Benadryl] Allergy (Verified 03/24/21 18:09) Rash imipramine Allergy (Verified 03/24/21 18:09) Other levofloxacin [From Levaquin] Allergy (Verified 03/24/21 18:09) Itching onabotulinumtoxinA [From Botox] Allergy (Verified 03/24/21 18:09) Itching Penicillins Allergy (Verified 03/24/21 18:09) Rash Sulfa (Sulfonamide Antibiotics) Allergy (Verified 03/24/21 20:15) NEEDS FOLLOW-UP topiramate [From Topamax] Allergy (Verified 03/24/21 18:09) Other baclofen Adverse Reaction (Severe, Verified 03/24/21 18:09) vomitting erythromycin base Adverse Reaction (Severe, Verified 03/24/21 18:09) chest pain fentanyl Adverse Reaction (Severe, Verified 03/24/21 20:11) Vomiting lubiprostone [From Amitiza] Adverse Reaction (Severe, Verified 03/24/21 20:11) Vomiting ondansetron [From Zofran] Adverse Reaction (Severe, Verified 03/24/21 20:11) Vomiting oxycodone Adverse Reaction (Severe, Verified 03/24/21 18:09) vomitting oxymorphone Adverse Reaction (Severe, Verified 03/24/21 20:11) ABD pain and vomiting pregabalin [From Lyrica] Adverse Reaction (Severe, Verified 03/24/21 18:09) eyes would stay closed codeine Adverse Reaction (Verified 03/24/21 18:09) nausea sertraline [From Zoloft] Adverse Reaction (Verified 03/24/21 18:09) serotoin syndrome environmental Allergy (Uncoded 03/24/21 18:09) Other Dietary and Speech Recommendations Speech Linguistic Eval Summary: Pt oriented to name, , location, and current month/year. Pt's speech 90-100% intelligible. Pt able to follow 1-2 step commands and respond appropriately to questions. No word finding deficits present. No further skilled ST intervention warranted at this time. Discharge Plan Admission Admit Date/Time: 03/24/21 20:39 Attending Provider: Nghia Nath Primary Care Provider: Alex Self Discharge Orders/Prescriptions Prescriptions: No Action aspirin 81 mg tablet,chewable 81 mg PO DAILY RF: 0 potassium chloride 10 mEq tablet extended release 10 meq PO DAILY RF: 0 tizanidine 4 MG tablet 4 mg PO 4X/DAY RF: 0 fluticasone propionate 1 SPRAY spray,suspension 2 spray NASAL DAILY RF: 0 lisinopril 5 MG tablet 5 mg PO DAILY RF: 0 multivitamin 1 EACH tablet 1 ea PO DAILY RF: 0 polyethylene glycol 3350 17 GM packet 17 g PO DAILY PRN (Reason: Constipation) RF: 0 lorazepam 0.5 MG tablet 0.5 mg PO TID RF: 0 pseudoephedrine-guaifenesin 1 EACH tablet extended release 12 hr 1 ea PO BID RF: 0 meclizine 12.5 MG tablet 12.5 mg PO DAILY PRN PRN (Reason: Vertigo and motion sickness) RF: 0 hydrocortisone-aloe vera 1 APPLIC cream 1 applic topical DAILY PRN (Reason: Itching) RF: 0 albuterol sulfate 1 INHALER inhaler 1 - 2 puff inhalation Q4H PRN PRN (Reason: Sob &/Or Wheezing) RF: 0 alum-mag hydroxide-simeth 30 ML suspension 30 ml PO Q8 PRN (Reason: Constipation) RF: 0 diclofenac sodium 1 APPLIC gel 1 applic topical TID RF: 0 cyanocobalamin (vitamin B-12) 1,000 MCG/ML solution 1,000 mcg IM Q30D RF: 0 promethazine 25 MG tablet 25 mg PO Q4H PRN PRN (Reason: Nausea) RF: 0 levothyroxine [Synthroid] 100 mcg Tablet 100 mcg PO DAILY RF: 0 Eliquis 2.5 mg Tablet 2.5 mg PO BID Qty: 30 RF: 0 tramadol 50 mg tablet 50 mg PO DAILY@1200,1600,2000 RF: 0 calcium polycarbophil [Fiber-Lax] 625 mg tablet 2,500 mg PO DAILY RF: 0 gabapentin 300 mg Capsule 300 mg PO TID RF: 0 tramadol 50 mg tablet 100 mg PO DAILY@0800 RF: 0 Referrals / Follow Up: Alex Self MD [Primary Care Provider] -
--- NOTE | 2021-03-25 14:00 | PCM.DC ---
Discharge Instructions Diet Discharge Diet: No restrictions Activity Discharge Activity: Return to Normal Activity Dressing / Incision Call your doctor if you observe: Shortness of breath, Dizziness and Chest pain Follow Up Care Test Results: Test results from this visit will be discussed in further detail at your follow-up appointment, if applicable. Discharge Plan Admission Admit Date/Time: 03/24/21 20:39 Attending Provider: Nghia Nath Primary Care Provider: Alex Self Discharge Orders/Prescriptions Prescriptions: New atorvastatin 40 mg tablet 40 mg PO QHS Qty: 30 RF: 0 Continued aspirin 81 mg tablet,chewable 81 mg PO DAILY RF: 0 potassium chloride 10 mEq tablet extended release 10 meq PO DAILY RF: 0 tizanidine 4 MG tablet 4 mg PO 4X/DAY RF: 0 fluticasone propionate 1 SPRAY spray,suspension 2 spray NASAL DAILY RF: 0 lisinopril 5 MG tablet 5 mg PO DAILY RF: 0 multivitamin 1 EACH tablet 1 ea PO DAILY RF: 0 polyethylene glycol 3350 17 GM packet 17 g PO DAILY PRN (Reason: Constipation) RF: 0 lorazepam 0.5 MG tablet 0.5 mg PO TID RF: 0 pseudoephedrine-guaifenesin 1 EACH tablet extended release 12 hr 1 ea PO BID RF: 0 meclizine 12.5 MG tablet 12.5 mg PO DAILY PRN PRN (Reason: Vertigo and motion sickness) RF: 0 hydrocortisone-aloe vera 1 APPLIC cream 1 applic topical DAILY PRN (Reason: Itching) RF: 0 albuterol sulfate 1 INHALER inhaler 1 - 2 puff inhalation Q4H PRN PRN (Reason: Sob &/Or Wheezing) RF: 0 alum-mag hydroxide-simeth 30 ML suspension 30 ml PO Q8 PRN (Reason: Constipation) RF: 0 diclofenac sodium 1 APPLIC gel 1 applic topical TID RF: 0 cyanocobalamin (vitamin B-12) 1,000 MCG/ML solution 1,000 mcg IM Q30D RF: 0 promethazine 25 MG tablet 25 mg PO Q4H PRN PRN (Reason: Nausea) RF: 0 levothyroxine [Synthroid] 100 mcg Tablet 100 mcg PO DAILY RF: 0 Eliquis 2.5 mg Tablet 2.5 mg PO BID Qty: 30 RF: 0 tramadol 50 mg tablet 50 mg PO DAILY@1200,1600,2000 RF: 0 calcium polycarbophil [Fiber-Lax] 625 mg tablet 2,500 mg PO DAILY RF: 0 gabapentin 300 mg Capsule 300 mg PO TID RF: 0 tramadol 50 mg tablet 100 mg PO DAILY@0800 RF: 0 Referrals / Follow Up: Alex Self MD [Primary Care Provider] - In 1 Week Disposition Disposition (needs filled in before D/C Order can be placed): Assisted Living
--- NOTE | 2021-03-25 14:09 | DS.PCM_ITS ---
Documented by User: Anastasiya Gutiérrez NP, [employer] 03/25/21 15:28 Providers Date of Admission: 03/24/21 Date of Discharge: 03/25/21 Primary Care Physician: Dr. Alex Self MD Reason For Visit: TIA Diagnosis Discharge Diagnosis (1) Brain TIA: Status: Acute Code(s): G45.9 - Transient cerebral ischemic attack, unspecified Medications at Discharge Home Medications fluticasone propionate 2 spray NASAL DAILY 01/03/16 tizanidine 4 mg PO 4X/DAY 01/03/16 aspirin 81 mg chewable tablet 81 mg PO DAILY 12/16/17 lisinopril 5 mg PO DAILY 10/21/18 multivitamin 1 ea PO DAILY 12/02/18 lorazepam 0.5 mg PO TID 06/22/19 polyethylene glycol 3350 17 g PO DAILY PRN 06/22/19 albuterol sulfate 1 - 2 puff INHALATION Q4H PRN PRN 04/16/20 alum-mag hydroxide-simeth 30 ml PO Q8 PRN 04/16/20 diclofenac sodium 1 applic TOPICAL TID 04/16/20 hydrocortisone-aloe vera 1 applic TOPICAL DAILY PRN 04/16/20 meclizine 12.5 mg PO DAILY PRN PRN 04/16/20 pseudoephedrine-guaifenesin 1 ea PO BID 04/16/20 potassium chloride 10 mEq tablet,extended release 10 meq PO DAILY 12/02/20 cyanocobalamin (vitamin B-12) 1,000 mcg IM Q30D 01/07/21 promethazine 25 mg PO Q4H PRN PRN 01/07/21 levothyroxine [Synthroid] 100 mcg PO DAILY 02/25/21 Eliquis 2.5 mg PO BID #30 tab 03/12/21 calcium polycarbophil [Fiber-Lax] 2,500 mg PO DAILY 03/24/21 gabapentin 300 mg PO TID 03/24/21 tramadol 50 mg PO DAILY@1200,1600,2000 03/24/21 tramadol 100 mg PO DAILY@0800 03/24/21 atorvastatin 40 mg PO QHS #30 tab 03/25/21 Hospital Course Operations None Procedures None Summary of Care Provided Minutes Spent on Discharge: 35 Hospital Course: Patient is a 66-year-old female admitted 03/24/2021 due to dizziness and speech changes. 1. Dizziness/speech changes-TIA/CVA ruled out. Brain CT without acute stroke, did demonstrate prior right lacunar infarct. Patient denies known history of CVA. Brain MRI without acute abnormality. MRA of head with no large vessel occlusion. MRI of neck with mild right carotid stenosis 40%, no left carotid stenosis. Patient symptoms have resolved. Unclear etiology for patient's symptoms, she states her only symptom was that her head felt funny. Continue aspirin, statin at discharge. Follow-up with PCP in 1 week. 2. Recent right knee replacement 03/11/2021-on Eliquis for DVT prophylaxis, continue to complete previously prescribed course. Outpatient follow-up with orthopedic medicine. 3. Hypertension-stable, continue home medication regimen. 4. Hyperlipidemia-initiated on statin. 5. Hypothyroidism-continue Synthroid. TSH elevated, T3/T4 pending. 6. Chronic intermittent asthma-stable, no exacerbation. 7. Schizoaffective disorder/bipolar disorder/anxiety/depression 8. Cerebral palsy Patient seen and examined prior to discharge. Physical assessment as noted below. Patient is stable for discharge with follow up recommendations as noted above. This patient was seen by SHAZIA Andre under the supervision of Dr. Naht. ABG / Lab / Microbiology Data Result Diagrams: 03/25/21 06:25 03/25/21 06:25 Laboratory: Laboratory Results - last 24 hr 03/24/21 03/24/21 03/24/21 17:45 17:45 17:45 WBC 7.4 RBC 3.45 L Hgb 10.0 L Hct 31.7 L MCV 91.9 MCH 29.0 MCHC 31.5 L RDW Std Deviation 42.2 RDW Coeff of Lindsey 13.0 Plt Count 389 MPV 8.6 Immature Gran % (Auto) 0.300 Neut % (Auto) 64.3 Lymph % (Auto) 24.1 [place] % (Auto) 9.3 Eos % (Auto) 1.5 Baso % (Auto) 0.5 Absolute Neuts (auto) 4.8 Absolute Lymphs (auto) 1.78 Nucleated RBC % 0 PT 14.4 INR 1.2 APTT 28.9 Sodium 136 Potassium 3.7 Chloride 104 Carbon Dioxide 28.0 Anion Gap 4 L BUN 6 L Creatinine 0.87 Estim Creat Clear Calc 56.41 Est GFR (MDRD) Af Amer 84 Est GFR (MDRD) Non-Af 70 BUN/Creatinine Ratio 6.9 L Glucose 80 Calcium 8.7 Total Bilirubin AST ALT Alkaline Phosphatase Troponin I < 0.015 Total Protein Albumin Globulin Albumin/Globulin Ratio Triglycerides Cholesterol LDL Cholesterol VLDL Cholesterol HDL Cholesterol TSH POC Glucose 03/24/21 03/24/21 03/24/21 18:53 21:05 22:09 WBC RBC Hgb Hct MCV MCH MCHC RDW Std Deviation RDW Coeff of Lindsey Plt Count MPV Immature Gran % (Auto) Neut % (Auto) Lymph % (Auto) [place] % (Auto) Eos % (Auto) Baso % (Auto) Absolute Neuts (auto) Absolute Lymphs (auto) Nucleated RBC % PT INR APTT Sodium Potassium Chloride Carbon Dioxide Anion Gap BUN Creatinine Estim Creat Clear Calc Est GFR (MDRD) Af Amer Est GFR (MDRD) Non-Af BUN/Creatinine Ratio Glucose Calcium Total Bilirubin AST ALT Alkaline Phosphatase Troponin I < 0.015 Total Protein Albumin Globulin Albumin/Globulin Ratio Triglycerides Cholesterol LDL Cholesterol VLDL Cholesterol HDL Cholesterol TSH POC Glucose 86 92 03/25/21 03/25/21 06:25 06:25 WBC 5.3 RBC 3.37 L Hgb 9.7 L Hct 31.0 L MCV 92.0 MCH 28.8 MCHC 31.3 L RDW Std Deviation 43.0 RDW Coeff of Lindsey 12.9 Plt Count 356 MPV 8.4 Immature Gran % (Auto) 0.200 Neut % (Auto) 65.0 Lymph % (Auto) 20.8 [place] % (Auto) 10.9 H Eos % (Auto) 2.3 Baso % (Auto) 0.8 Absolute Neuts (auto) 3.5 Absolute Lymphs (auto) 1.10 Nucleated RBC % 0 PT INR APTT Sodium 142 Potassium 3.8 Chloride 109 H Carbon Dioxide 26.0 Anion Gap 7 BUN 6 L Creatinine 0.78 Estim Creat Clear Calc 62.92 Est GFR (MDRD) Af Amer 95 Est GFR (MDRD) Non-Af 79 BUN/Creatinine Ratio 7.7 L Glucose 102 Calcium 8.1 L Total Bilirubin 0.30 AST 15 ALT 15 Alkaline Phosphatase 114 Troponin I Total Protein 5.9 L Albumin 2.9 L Globulin 3.0 Albumin/Globulin Ratio 1.0 Triglycerides 82 Cholesterol 168 LDL Cholesterol 98 VLDL Cholesterol 16 HDL Cholesterol 54 TSH 7.66 H POC Glucose Radiography Diagnostic Testing: Radiology Impression Brain CT 03/24/21 18:23 IMPRESSION: Chronic involutional and white matter changes. No definite acute intracranial process. Acuity of the lacunar infarction is indeterminate. Individualized dose optimization techniques were used for this CT. at 1945 Reported and signed by: Brian Carrasco MD Electronically Signed: Brian Carrasco MD at 19:44 EDT Tel , Service support , ADDENDUM: 03/24/211958 IMPRESSION: Chronic involutional and white matter changes. No definite acute intracranial process. Acuity of the lacunar infarction is indeterminate. Individualized dose optimization techniques were used for this CT. at 1945 Reported and signed by: Brian Carrasco MD N.B. : The above information has been verbally conveyed by Brian Carrasco MD to Ziyad Kc MD, MD, on 03/24/2021 19:52:20 (ET). Electronically Signed: Brian Carrasco MD at 19:44 EDT Tel , Service support , Chest X-Ray 03/24/21 18:24 IMPRESSION: No radiographic evidence of acute cardiopulmonary disease. at 1908 Reported and signed by: Brian Carrasco MD Electronically Signed: Brian Carrasco MD at 19:07 EDT Tel , Service support , Brain MRI 03/25/21 01:51 IMPRESSION: No acute intracranial abnormality. Moderate chronic microvascular ischemic changes. Electronically Signed: Ethel Edward MD at 10:42 EDT Tel , Service support , Head MRA 03/25/21 09:00 IMPRESSION: No large vessel occlusion. Electronically Signed: Ethel Edward MD at 10:44 EDT Tel , Service support , Neck MRA 03/25/21 09:00 IMPRESSION: 1. Mild (40%) (right carotid stenosis. 2. No left carotid stenosis. 3. Patent vertebral arteries bilaterally. Electronically Signed: Low Marin MD at 11:12 EDT Tel , Service support , D/C Instructions Discharge Diet: No restrictions Discharge Activity: Return to Normal Activity Call your doctor if you observe: Shortness of breath, Dizziness and Chest pain Meaningful Use Info Meaningful Use Diagnoses (Choose all that apply): None applicable Discharge Plan Admission Admit Date/Time: 03/24/21 20:39 Attending Provider: Nghia Nath Primary Care Provider: Alex Self Discharge Orders/Prescriptions Prescriptions: New atorvastatin 40 mg tablet 40 mg PO QHS Qty: 30 RF: 0 Continued aspirin 81 mg tablet,chewable 81 mg PO DAILY RF: 0 potassium chloride 10 mEq tablet extended release 10 meq PO DAILY RF: 0 tizanidine 4 MG tablet 4 mg PO 4X/DAY RF: 0 fluticasone propionate 1 SPRAY spray,suspension 2 spray NASAL DAILY RF: 0 lisinopril 5 MG tablet 5 mg PO DAILY RF: 0 multivitamin 1 EACH tablet 1 ea PO DAILY RF: 0 polyethylene glycol 3350 17 GM packet 17 g PO DAILY PRN (Reason: Constipation) RF: 0 lorazepam 0.5 MG tablet 0.5 mg PO TID RF: 0 pseudoephedrine-guaifenesin 1 EACH tablet extended release 12 hr 1 ea PO BID RF: 0 meclizine 12.5 MG tablet 12.5 mg PO DAILY PRN PRN (Reason: Vertigo and motion sickness) RF: 0 hydrocortisone-aloe vera 1 APPLIC cream 1 applic topical DAILY PRN (Reason: Itching) RF: 0 albuterol sulfate 1 INHALER inhaler 1 - 2 puff inhalation Q4H PRN PRN (Reason: Sob &/Or Wheezing) RF: 0 alum-mag hydroxide-simeth 30 ML suspension 30 ml PO Q8 PRN (Reason: Constipation) RF: 0 diclofenac sodium 1 APPLIC gel 1 applic topical TID RF: 0 cyanocobalamin (vitamin B-12) 1,000 MCG/ML solution 1,000 mcg IM Q30D RF: 0 promethazine 25 MG tablet 25 mg PO Q4H PRN PRN (Reason: Nausea) RF: 0 levothyroxine [Synthroid] 100 mcg Tablet 100 mcg PO DAILY RF: 0 Eliquis 2.5 mg Tablet 2.5 mg PO BID Qty: 30 RF: 0 tramadol 50 mg tablet 50 mg PO DAILY@1200,1600,2000 RF: 0 calcium polycarbophil [Fiber-Lax] 625 mg tablet 2,500 mg PO DAILY RF: 0 gabapentin 300 mg Capsule 300 mg PO TID RF: 0 tramadol 50 mg tablet 100 mg PO DAILY@0800 RF: 0 Referrals / Follow Up: Alex Self MD [Primary Care Provider] - In 1 Week Disposition Disposition (needs filled in before D/C Order can be placed): Assisted Living Documented by User: Dr. Nghia Nath MD 03/25/21 15:54 Providers Date of Admission: 03/24/21 Reason For Visit: TIA Medications at Discharge Home Medications fluticasone propionate 2 spray NASAL DAILY 01/03/16 tizanidine 4 mg PO 4X/DAY 01/03/16 aspirin 81 mg chewable tablet 81 mg PO DAILY 12/16/17 lisinopril 5 mg PO DAILY 10/21/18 multivitamin 1 ea PO DAILY 12/02/18 lorazepam 0.5 mg PO TID 06/22/19 polyethylene glycol 3350 17 g PO DAILY PRN 06/22/19 albuterol sulfate 1 - 2 puff INHALATION Q4H PRN PRN 04/16/20 alum-mag hydroxide-simeth 30 ml PO Q8 PRN 04/16/20 diclofenac sodium 1 applic TOPICAL TID 04/16/20 hydrocortisone-aloe vera 1 applic TOPICAL DAILY PRN 04/16/20 meclizine 12.5 mg PO DAILY PRN PRN 04/16/20 pseudoephedrine-guaifenesin 1 ea PO BID 04/16/20 potassium chloride 10 mEq tablet,extended release 10 meq PO DAILY 12/02/20 cyanocobalamin (vitamin B-12) 1,000 mcg IM Q30D 01/07/21 promethazine 25 mg PO Q4H PRN PRN 01/07/21 levothyroxine [Synthroid] 100 mcg PO DAILY 02/25/21 Eliquis 2.5 mg PO BID #30 tab 03/12/21 calcium polycarbophil [Fiber-Lax] 2,500 mg PO DAILY 03/24/21 gabapentin 300 mg PO TID 03/24/21 tramadol 50 mg PO DAILY@1200,1600,2000 03/24/21 tramadol 100 mg PO DAILY@0800 03/24/21 atorvastatin 40 mg PO QHS #30 tab 03/25/21 ABG / Lab / Microbiology Data Result Diagrams: 03/25/21 06:25 03/25/21 06:25 Discharge Plan Admission Admit Date/Time: 03/24/21 20:39 Attending Provider: Nghia Nath Primary Care Provider: Alex Self Discharge Orders/Prescriptions Prescriptions: New atorvastatin 40 mg tablet 40 mg PO QHS Qty: 30 RF: 0 Continued aspirin 81 mg tablet,chewable 81 mg PO DAILY RF: 0 potassium chloride 10 mEq tablet extended release 10 meq PO DAILY RF: 0 tizanidine 4 MG tablet 4 mg PO 4X/DAY RF: 0 fluticasone propionate 1 SPRAY spray,suspension 2 spray NASAL DAILY RF: 0 lisinopril 5 MG tablet 5 mg PO DAILY RF: 0 multivitamin 1 EACH tablet 1 ea PO DAILY RF: 0 polyethylene glycol 3350 17 GM packet 17 g PO DAILY PRN (Reason: Constipation) RF: 0 lorazepam 0.5 MG tablet 0.5 mg PO TID RF: 0 pseudoephedrine-guaifenesin 1 EACH tablet extended release 12 hr 1 ea PO BID RF: 0 meclizine 12.5 MG tablet 12.5 mg PO DAILY PRN PRN (Reason: Vertigo and motion sickness) RF: 0 hydrocortisone-aloe vera 1 APPLIC cream 1 applic topical DAILY PRN (Reason: Itching) RF: 0 albuterol sulfate 1 INHALER inhaler 1 - 2 puff inhalation Q4H PRN PRN (Reason: Sob &/Or Wheezing) RF: 0 alum-mag hydroxide-simeth 30 ML suspension 30 ml PO Q8 PRN (Reason: Constipation) RF: 0 diclofenac sodium 1 APPLIC gel 1 applic topical TID RF: 0 cyanocobalamin (vitamin B-12) 1,000 MCG/ML solution 1,000 mcg IM Q30D RF: 0 promethazine 25 MG tablet 25 mg PO Q4H PRN PRN (Reason: Nausea) RF: 0 levothyroxine [Synthroid] 100 mcg Tablet 100 mcg PO DAILY RF: 0 Eliquis 2.5 mg Tablet 2.5 mg PO BID Qty: 30 RF: 0 tramadol 50 mg tablet 50 mg PO DAILY@1200,1600,2000 RF: 0 calcium polycarbophil [Fiber-Lax] 625 mg tablet 2,500 mg PO DAILY RF: 0 gabapentin 300 mg Capsule 300 mg PO TID RF: 0 tramadol 50 mg tablet 100 mg PO DAILY@0800 RF: 0 Referrals / Follow Up: Alex Self MD [Primary Care Provider] - In 1 Week Disposition Disposition (needs filled in before D/C Order can be placed): Assisted Living Addendum Addendum: Dr. Nath: I personally reviewed the chart and examined the patient, and agree with the above findings. 66-year-old female presents to the hospital with slurred speech, dizziness, and tongue deviation. Her symptoms had resolved prior to admission. MRI was negative for an acute stroke, did show chronic microvascular changes and a CT of the brain on admission demonstrated an old lacunar infarct, which she thinks occurred back in December of this year when she had similar symptoms. She would like to go home today since her symptoms have resolved I did discuss with her the need to follow-up with her PCP and neurology as an outpatient and obtain an outpatient echo. Telemetry monitoring here in the hospital was unremarkable for A. fib. She is on aspirin daily and is currently on Eliquis for anticoagulation secondary to her knee, given her previous stroke in her TIA will also add statin therapy. Visit Charges OBSV E&M: 14477 Observation care discharge
--- NOTE | 2021-03-25 14:09 | CASEMGMT ---
SW spoke with patient and let her know she is going to be returning to [place] today. She said she has a friend that will transport her back. Pari GARCIA
[2021-03-25 14:40] LABS: Free T3 2.6 pg/mL (2.18-3.98); T4 Free Direct 1.59 ng/dL (0.76-1.46)
--- NOTE | 2021-03-25 15:41 | CASEMGMT ---
BRYCE did talk with Cyrus at [facility] and patient is fine to return today. BRYCE also faxed d/c instructions to Aimee at [facility]. Pari Donohue [employer] SERV[employer] SUPERVISOR JOSE
== END 2021-03-25 14:02 | disposition home or self-care (01) ==
LOC: ED 20:34 → PCU 21:03
PROVIDERS: Nurse Practitioner Family; Admitting Provider Family Medicine; Emergency Provider Emergency Medicine; PCP Family Medicine; Visit Provider Family Medicine
DX: R42 Dizziness and giddiness (principal); E78.5 Hyperlipidemia, unspecified; I10 Essential (primary) hypertension; E03.9 Hypothyroidism, unspecified; J45.20 Mild intermittent asthma, uncomplicated; F31.9 Bipolar disorder, unspecified; F25.9 Schizoaffective disorder, unspecified; F41.9 Anxiety disorder, unspecified; R47.81 Slurred speech; G80.9 Cerebral palsy, unspecified; M79.7 Fibromyalgia; K21.9 Gastro-esophageal reflux disease without esophagitis; K58.9 Irritable bowel syndrome, unspecified; I73.9 Peripheral vascular disease, unspecified; R29.700 NIHSS score 0; E78.00 Pure hypercholesterolemia, unspecified; M40.209 Unspecified kyphosis, site unspecified; Z79.899 Other long term (current) drug therapy; Z79.51 Long term (current) use of inhaled steroids; Z79.01 Long term (current) use of anticoagulants; Z79.82 Long term (current) use of aspirin
CPT/HCPCS: 36415; 70450; 70544; 70547; 70551; 71045; 80048; 80053; 80061; 82962; 84439; 84443; 84481; 84484; 85025; 85610; 85730; 92523; 92610; 93005; 94762; 96360; 96361; 97162; 97166; 99218; 99285; J7030; G0378

== ENCOUNTER → 2021-06-02 04:00 | Outpatient (REF) | payer MEDICARE, MEDICAID, SELFPAY ==
[2021-04-02 13:13] VITALS: BMI 31.7
[2021-06-02 08:18] LABS: Hematocrit 30.1 % (37-47); Hemoglobin 9.5 g/dL (12.0-15.0); Mean Corp Hgb Conc 31.6 g/dL (32-36); Mean Corpuscular Hgb 27.2 pg (27.0-32.0); Mean Corpuscular Volume 86.2 fL (81-99); Mean Platelet Vol. 9.7 fl (6.2-12.0); Platelet Count 230 K/mm3 (150-450); RBC Distribution Width SD 43.8 fl (35.1-43.9); Red Blood Count 3.49 M/mm3 (4.2-5.4); White Blood Count 5.2 K/mm3 (4.4-11.0)
[2021-06-02 08:53] LABS: ALB/GLOB Ratio 1.1 RATIO (0.9-2.4); AST(SGOT) 21 U/L (15-37); Alanine Aminotransfer ALT/SGPT 27 U/L (13-56); Albumin, Serum 3.1 g/dL (3.2-5.0); Alkaline Phosphatase 113 U/L (45-117); Anion Gap 4 (5-15); BUN 9 mg/dL (7-18); BUN/Creat Ratio 13.1 RATIO (10-20); Calcium,Total 8.5 mg/dL (8.5-10.1); Chloride 108 mmol/L (98-107); Cholesterol 134 mg/dL (200); Creatinine, Serum 0.68 mg/dL (0.55-1.02); EST Glomerular Filtration Rate 92 mL/min (>60); Est Glom Filt Rate - Afr Amer 111 mL/min (>60); Free T3 2.8 pg/mL (2.18-3.98); Globulin 2.9 g/dL (2.2-4.2); Glucose 79 mg/dL (74-106); High Density Lipoprotein 60 mg/dL; Potassium 4.2 mmol/L (3.5-5.1); Sodium Level 141 mmol/L (136-145); Thyroid Stim Hormone (TSH) 4.22 uIU/mL (0.358-3.74); Triglycerides 58 mg/dL; Very Low Density Lipoprotein 12 mg/dL (5-40)
== END ==
LOC: OLS.SWAL 04:00
PROVIDERS: PCP Family Medicine
DX: I10 Essential (primary) hypertension (principal); G80.9 Cerebral palsy, unspecified; E03.9 Hypothyroidism, unspecified
CPT/HCPCS: 36415; 80053; 80061; 84439; 84443; 84481; 85027

== ENCOUNTER → 2021-08-26 05:00 | Outpatient (REF) | payer MEDICARE, MEDICAID, SELFPAY ==
[2021-08-26 08:56] LABS: Hematocrit 38.3 % (37-47); Hemoglobin 12.6 g/dL (12.0-15.0); Mean Corp Hgb Conc 32.9 g/dL (32-36); Mean Corpuscular Hgb 30.3 pg (27.0-32.0); Mean Corpuscular Volume 92.1 fL (81-99); Platelet Count 225 K/mm3 (150-450); RBC Distribution Width CV 13.4 % (11.6-14.6); RBC Distribution Width SD 45.4 fl (35.1-43.9); Red Blood Count 4.16 M/mm3 (4.2-5.4); White Blood Count 6.4 K/mm3 (4.4-11.0)
[2021-08-26 09:19] LABS: ALB/GLOB Ratio 0.8 RATIO (0.9-2.4); AST(SGOT) 23 U/L (15-37); Alanine Aminotransfer ALT/SGPT 36 U/L (13-56); Albumin, Serum 2.8 g/dL (3.2-5.0); Alkaline Phosphatase 126 U/L (45-117); Anion Gap 4 (5-15); BUN 14 mg/dL (7-18); BUN/Creat Ratio 18.9 RATIO (10-20); Calcium,Total 8.6 mg/dL (8.5-10.1); Chloride 102 mmol/L (98-107); Cholesterol 144 mg/dL (200); Creatinine, Serum 0.74 mg/dL (0.55-1.02); EST Glomerular Filtration Rate 84 mL/min (>60); Est Glom Filt Rate - Afr Amer 101 mL/min (>60); Globulin 3.3 g/dL (2.2-4.2); Glucose 90 mg/dL (74-106); High Density Lipoprotein 63 mg/dL; Potassium 4.7 mmol/L (3.5-5.1); Protein, Total 6.1 g/dL (6.4-8.2); Sodium Level 137 mmol/L (136-145); T4 Free Direct 1.54 ng/dL (0.76-1.46); Thyroid Stim Hormone (TSH) 1.62 uIU/mL (0.358-3.74); Triglycerides 96 mg/dL; Very Low Density Lipoprotein 19 mg/dL (5-40)
== END ==
LOC: OLS.SWAL 05:00
PROVIDERS: PCP Family Medicine
DX: D64.9 Anemia, unspecified (principal); I10 Essential (primary) hypertension; E78.5 Hyperlipidemia, unspecified; E03.9 Hypothyroidism, unspecified; G80.9 Cerebral palsy, unspecified
CPT/HCPCS: 36415; 80053; 80061; 84439; 84443; 84481; 85027

== ENCOUNTER 2021-09-18 18:06 | Emergency (ER) | payer MEDICARE, MEDICAID, SELFPAY ==
[2021-09-18 18:07] VITALS: BP 144/78; PULSE 70; RESP 18; TEMP 36.3; O2SAT 96; BMI 37.5
--- NOTE | 2021-09-18 18:26 | CT_ITS ---
STUDY: CT BRAIN WITHOUT CONTRAST REASON FOR EXAM: Female, 66 years old. Weakness. Altered mental status, Staphylococcus infection. History of TIA, CVA, hypertension, cerebral palsy, bipolar schizoaffective disorder. RADIATION DOSAGE (If Supplied By Facility): CTDIvol = ( 44.99 ) mGy, DLP = ( 863.60 ) mGycm TECHNIQUE: Transaxial CT imaging of the brain was performed without administration of intravenous contrast material. Individualized dose optimization techniques were used for this CT. COMPARISON: MRI of the brain, 03/25/2021 FINDINGS: Normal soft tissue structures. Normal calvarium. Normal size ventricles and extra-axial spaces for the patient''s age. There are areas of decreased attenuation within the white matter tracts of the supratentorial brain, consistent with microvascular disease changes. Normal basal ganglia and thalami. Normal brainstem. Normal cerebellum. There is no intracranial hemorrhage. There are no findings of an acute ischemic infarction. Normal visualized paranasal sinuses. CT/Brain/Head without Contrast IMPRESSION: No acute intracranial and calvarial abnormality. No major interval change. Electronically Signed: Alexis Jeffers DO at 19:31 EST Tel [phone], Service support ,
--- NOTE | 2021-09-18 18:48 | EDS_ITS ---
HPI History of Present Illness Chief Complaint: General Illness Narrative Narrative: Patient is a 66-year-old female from the retirement who presents with multiple complaints. She states that she has had 2 TIAs and one stroke. She reports she was recently diagnosed with a staph infection. She states she has been having increased fatigue and weakness and therefore was sent to the hospital for evaluation. She also reports she has had mild cough and shortness of breath and has had to use her inhaler a few times over the last few days which she states is not normal for her [facility] Medical History Anemia Anxiety Asthma Bipolar 1 disorder Cerebral palsy Fibromyalgia GERD (gastroesophageal reflux disease) HBP (high blood pressure) Hypercholesteremia Hyperlipidemia Hypertension Hypothyroid Irritable bowel Kyphosis Migraine Peripheral vascular disease Schizoaffective disorder Home Medications fluticasone propionate 2 spray NASAL DAILY 01/03/16 [History Last Taken 03/24/21] tizanidine 4 mg PO 4X/DAY 01/03/16 [History Last Taken 03/24/21] aspirin 81 mg chewable tablet 81 mg PO DAILY 12/16/17 [History Last Taken 03/24/21] lisinopril 5 mg PO DAILY 10/21/18 [History Last Taken 03/24/21] multivitamin 1 ea PO DAILY 12/02/18 [History Last Taken 03/24/21] lorazepam 0.5 mg PO TID 06/22/19 [History Last Taken 03/24/21] polyethylene glycol 3350 17 g PO DAILY 06/22/19 [History Last Taken 03/22/21] albuterol sulfate 2 puff INHALATION Q6H PRN PRN 04/16/20 [History Last Taken 11/05/20] alum-mag hydroxide-simeth 30 ml PO Q8 PRN 04/16/20 [History Last Taken 03/24/21] diclofenac sodium 1 applic TOPICAL Q6H PRN PRN 04/16/20 [History Last Taken 03/24/21] hydrocortisone-aloe vera 1 applic TOPICAL Q8H PRN PRN 04/16/20 [History Last Taken 03/22/21] meclizine 12.5 mg PO Q6H PRN PRN 04/16/20 [History Last Taken 03/24/21] potassium chloride 10 mEq tablet,extended release 10 meq PO DAILY 12/02/20 [ History Last Taken 03/24/21] cyanocobalamin (vitamin B-12) 1,000 mcg IM Q30D 01/07/21 [History Last Taken 03/17/21] promethazine 25 mg PO Q6H PRN PRN 01/07/21 [History Last Taken 03/23/21] gabapentin 300 mg PO TID 03/24/21 [History Last Taken 03/24/21] tramadol 50 mg PO DAILY@1200,1600,2000 03/24/21 [History Last Taken 03/24/21] tramadol 100 mg PO DAILY@0800 03/24/21 [History Last Taken 03/24/21] atorvastatin 40 mg PO QHS #30 tab 03/25/21 [Rx Last Taken Unknown] clopidogrel 300 mg tablet 300 mg PO ONCE 04/21/21 [History Last Taken Unknown] acetaminophen [Acetaminophen Extra Strength] 1,000 mg PO Q6H PRN 09/18/21 [History Last Taken Unknown] artificial tears solution 1 drp OPHTHALMIC (EYE) PRN PRN 09/18/21 [History Last Taken Unknown] clindamycin HCl 300 mg PO Q6H 7 Days #28 cap 09/18/21 [Rx Last Taken Unknown] dextromethorphan-guaifenesin [Mucinex DM] 1 tab PO Q12H 09/18/21 [History Last Taken Unknown] ferrous sulfate 325 mg PO BID 09/18/21 [History Last Taken Unknown] fluconazole 100 mg PO DAILY 09/18/21 [History Last Taken Unknown] adalid (Zingiber officinalis) 550 mg PO DAILY 09/18/21 [History Last Taken Unknown] levothyroxine 112 mcg PO DAILY 09/18/21 [History Last Taken Unknown] meclizine 25 mg PO Q6H PRN PRN 09/18/21 [History Last Taken Unknown] psyllium husk [Metamucil] 0.52 g PO BID 09/18/21 [History Last Taken Unknown] rabeprazole [AcipHex] 20 mg PO DAILY 09/18/21 [History Last Taken Unknown] sulfamethoxazole-trimethoprim [Bactrim DS] 1 tab PO BID 09/18/21 [History Last Taken Unknown] Allergy/AdvReac Type Severity Reaction Status Date / Time lithium Allergy Mild Vomiting Verified 09/18/21 18:12 aspartame Allergy Itching Verified 09/18/21 18:12 carrot Allergy Food Verified 09/18/21 18:12 Allergy ciclesonide [From [place]] Allergy Shortness Verified 09/18/21 18:12 of breath diphenhydramine Allergy Other Verified 09/18/21 18:12 [From Benadryl] diphenhydramine HCl Allergy Rash Verified 09/18/21 18:12 [From Benadryl] imipramine Allergy Other Verified 09/18/21 18:12 levofloxacin [From Levaquin] Allergy Itching Verified 09/18/21 18:12 onabotulinumtoxinA Allergy Itching Verified 09/18/21 18:12 [From Botox] Penicillins Allergy Rash Verified 09/18/21 18:12 Sulfa (Sulfonamide Allergy NEEDS Verified 09/18/21 18:12 Antibiotics) FOLLOW-UP topiramate [From Topamax] Allergy Other Verified 09/18/21 18:12 baclofen AdvReac Severe vomitting Verified 09/18/21 18:12 erythromycin base AdvReac Severe chest pain Verified 09/18/21 18:12 fentanyl AdvReac Severe Vomiting Verified 09/18/21 18:12 lubiprostone [From Amitiza] AdvReac Severe Vomiting Verified 09/18/21 18:12 ondansetron [From Zofran] AdvReac Severe Vomiting Verified 09/18/21 18:12 oxycodone AdvReac Severe vomitting Verified 09/18/21 18:12 oxymorphone AdvReac Severe ABD pain Verified 09/18/21 18:12 and vomiting pregabalin [From Lyrica] AdvReac Severe eyes would Verified 09/18/21 18:12 stay closed codeine AdvReac nausea Verified 09/18/21 18:12 sertraline [From Zoloft] AdvReac serotoin Verified 09/18/21 18:12 syndrome environmental Allergy Other Uncoded 09/18/21 18:12 Family History Sister CVA (cerebral vascular accident) Afib Heart disease Liver disease Brother Colon cancer Father Emphysema lung Surgical History History of total left knee replacement History of total right knee replacement Social History adopted: No housing: assisted living facility current occupational status: disabled Smoking Status: Never smoker alcohol intake: never ROS ROS ED Constitutional Constitutional ED: Denies chills or fever(s) ENT ENT ED: Denies sore throat Cardiovascular Cardiovascular: Denies chest pain Respiratory/Chest Respiratory/Chest: Reports cough and dyspnea Gastrointestinal Gastrointestinal: Reports abdominal pain; Denies diarrhea, nausea or vomiting Genitourinary Genitourinary ED: Denies dysuria Musculoskeletal Musculoskeletal: Denies myalgias Integumentary Reports rash Neurologic Neurologic: Reports weakness; Denies headache(s) EXAM Physical Exam Const Vital Signs: 09/18/21 18:07 09/18/21 18:21 Temperature 97.3 F L Temperature Source Temporal Pulse Rate 70 Respiratory Rate 18 Respiratory Effort Normal Non-Labored Respiratory Pattern Normal Blood Pressure 144/78 H Blood Pressure Mean 100 Pulse Ox 96 Oxygen Delivery Method Room Air Positive well nourished, well developed and obese General Appearance ED: well developed Nutritional Appearance: obese HEENT Reports moist mucous membranes Eyes PERRL and EOMs intact bilaterally Neck supple Resp normal respiratory effort and clear to auscultation bilaterally Cardio regular rate and regular rhythm Rate: other Other Details: Radial pulses are +2-4 bilaterally are equal and symmetric GI normal to inspection, nondistended, normoactive bowel sounds, non-tender, non-distended and no masses GI Narrative: No voluntary guarding or rigidity no pulsatile mass Auscultation: normoactive bowel sounds Palpation: soft Extremity normal to inspection Extremity Narrative: Patient has chronic edema to the bilateral lower legs Neuro oriented x3 and CN's II-XII intact bilaterally Neuro Narrative: Cranial nerves II through XII are grossly intact there are no focal neurologic deficits. No pronator drift no dysmetria no truncal ataxia. NIH stroke scale score of 0 Sensorium / Orientation: alert Motor Exam: strength 5/5 throughout Psych Mood & Affect: anxious Skin Skin Narrative: Patient has erythematous/ulcerative lesions across the bilateral low back most consistent with a topical staph infection but no obvious abscess formation or lymphangitic streaking MDM MDM MDM Narrative Medical decision making narrative: Patient presented to the ER no acute distress with normal neurologic exam. Her skin exam was consistent with the reported staph infection. Based on her symptoms I did elect to perform basic laboratory studies as well as a chest x-ray and CT scan. Labs revealed no clinically significant findings. Chest x-ray revealed no obvious infiltrate pneumothorax or pneumonia. CT revealed no new or acute finding. On reevaluation she is resting comfortably and her neuro exam remains normal. Therefore this time I do not feel there is need for admission and patient can be discharged back to the retirement on antibiotics for her staph infection. She reports that she did not tolerate the Bactrim well and therefore this will be stopped and she can transition to clindamycin for continued staph coverage. Lab Data Attestation: I reviewed the patient's lab results. Labs: Laboratory Results - last 24 hr 09/18/21 09/18/21 09/18/21 18:45 18:45 18:45 WBC 6.0 RBC 3.79 L Hgb 11.6 L Hct 34.2 L MCV 90.2 MCH 30.6 MCHC 33.9 RDW Std Deviation 41.4 RDW Coeff of Lindsey 12.9 Plt Count 215 MPV 8.3 Immature Gran % (Auto) 0.500 Neut % (Auto) 65.2 Lymph % (Auto) 16.7 L Whitman % (Auto) 14.3 H Eos % (Auto) 2.8 Baso % (Auto) 0.5 Absolute Neuts (auto) 3.9 Absolute Lymphs (auto) 1.01 Nucleated RBC % 0 Sodium 130 L Potassium 4.5 Chloride 99 Carbon Dioxide 28.0 Anion Gap 3 L BUN 13 Creatinine 0.94 Estim Creat Clear Calc 52.21 Est GFR (MDRD) Af Amer 77 Est GFR (MDRD) Non-Af 63 BUN/Creatinine Ratio 13.8 Glucose 88 Lactic Acid 0.6 Calcium 8.3 L Magnesium 2.2 Radiography Diagnostic Testing: Clinical Impression(s) from Imaging Studies Brain CT 09/18/21 18:26 IMPRESSION: No acute intracranial and calvarial abnormality. No major interval change. Electronically Signed: Alexis Jeffers DO at 19:31 EST Tel [phone], Service support , Chest X-Ray 09/18/21 19:11 IMPRESSION: No acute cardiopulmonary disease or interval change. Electronically Signed: Alexis Jeffers DO at 19:32 EST Tel [phone], Service support , Discharge Plan Triage Chief Complaint: General Illness ED Provider: Arsen Hope Dx/Rx/DC Orders Clinical Impression: Staph skin infection Instructions: Staph Infection (Non-MRSA) Prescriptions: New clindamycin HCl 300 mg capsule 300 mg PO Q6H 7 Days Qty: 28 RF: 0 No Action aspirin 81 mg tablet,chewable 81 mg PO DAILY RF: 0 potassium chloride 10 mEq tablet extended release 10 meq PO DAILY RF: 0 clopidogrel 300 mg tablet 300 mg PO ONCE RF: 0 tizanidine 4 MG tablet 4 mg PO 4X/DAY RF: 0 fluticasone propionate 1 SPRAY spray,suspension 2 spray NASAL DAILY RF: 0 lisinopril 5 MG tablet 5 mg PO DAILY RF: 0 multivitamin 1 EACH tablet 1 ea PO DAILY RF: 0 polyethylene glycol 3350 17 GM packet 17 g PO DAILY RF: 0 lorazepam 0.5 MG tablet 0.5 mg PO TID RF: 0 meclizine 12.5 MG tablet 12.5 mg PO Q6H PRN PRN (Reason: Vertigo and motion sickness) RF: 0 hydrocortisone-aloe vera 1 APPLIC cream 1 applic topical Q8H PRN PRN (Reason: Itching) RF: 0 albuterol sulfate 1 INHALER inhaler 2 puff inhalation Q6H PRN PRN (Reason: Sob &/Or Wheezing) RF: 0 alum-mag hydroxide-simeth 30 ML suspension 30 ml PO Q8 PRN (Reason: Constipation) RF: 0 diclofenac sodium 1 APPLIC gel 1 applic topical Q6H PRN PRN (Reason: Pain) RF: 0 cyanocobalamin (vitamin B-12) 1,000 MCG/ML solution 1,000 mcg IM Q30D RF: 0 promethazine 25 MG tablet 25 mg PO Q6H PRN PRN (Reason: Nausea) RF: 0 tramadol 50 mg tablet 50 mg PO DAILY@1200,1600,2000 RF: 0 gabapentin 300 mg Capsule 300 mg PO TID RF: 0 tramadol 50 mg tablet 100 mg PO DAILY@0800 RF: 0 atorvastatin 40 mg tablet 40 mg PO QHS Qty: 30 RF: 0 fluconazole 100 mg Tablet 100 mg PO DAILY RF: 0 rabeprazole [AcipHex] 20 mg Tablet,Delayed Release (Dr/Ec) 20 mg PO DAILY RF: 0 artificial tears solution Drops 1 drp OPHTHALMIC (EYE) PRN PRN (Reason: Dry Eye(S)) RF: 0 meclizine 25 mg Capsule 25 mg PO Q6H PRN PRN (Reason: Dizziness) RF: 0 sulfamethoxazole-trimethoprim [Bactrim DS] 800-160 mg Tablet 1 tab PO BID RF: 0 acetaminophen [Acetaminophen Extra Strength] 500 mg Tablet 1,000 mg PO Q6H PRN (Reason: Pain) RF: 0 ferrous sulfate 325 mg (65 mg iron) Tablet 325 mg PO BID RF: 0 Mucinex DM 30-600 mg Tablet Extended Release 12 Hr 1 tab PO Q12H RF: 0 psyllium husk [Metamucil] 0.52 gram Capsule 0.52 g PO BID RF: 0 adalid (Zingiber officinalis) 550 mg Capsule 550 mg PO DAILY RF: 0 levothyroxine 112 mcg tablet 112 mcg PO DAILY RF: 0 Primary Care Provider: Alex Self Referrals: Alex Self MD [Primary Care Provider] - Activity Restrictions/Additional Instructions: Please stop the Bactrim/sulfa drugs secondary to your intolerance and begin the clindamycin to cover your staph infection Disposition Disposition: Home, Self Care
[2021-09-18 18:53] LABS: Absolute Lymphocyte Count 1.01 X10^3/uL (0.83-4.51); Absolute Neutrophil Count 3.9 X10^3/uL (2.0-7.7); Basophil# 0.03 X10^3/uL; Basophil% 0.5 % (0-1); Eosinophil# 0.17 X10^3/uL; Eosinophils% 2.8 % (0-5); Hematocrit 34.2 % (37-47); Hemoglobin 11.6 g/dL (12.0-15.0); Lymphocyte # 1.01 X10^3/ul (0.83-4.51); Lymphocyte % 16.7 % (19-41); Mean Corp Hgb Conc 33.9 g/dL (32-36); Mean Corpuscular Hgb 30.6 pg (27.0-32.0); Mean Corpuscular Volume 90.2 fL (81-99); Mean Platelet Vol. 8.3 fl (6.2-12.0); Monocyte# 0.86 X10^3/uL; Monocyte% 14.3 % (0-10); NRBC Flagged by Analyzer 0 % (0-5); Neutrophil # 3.93 X10^3/uL (2.7-7.7); Neutrophil % 65.2 % (47-70); Platelet Count 215 K/mm3 (150-450); RBC Distribution Width CV 12.9 % (11.6-14.6); RBC Distribution Width SD 41.4 fl (35.1-43.9); Red Blood Count 3.79 M/mm3 (4.2-5.4)
[2021-09-18 19:06] LABS: Anion Gap 3 (5-15); BUN 13 mg/dL (7-18); BUN/Creat Ratio 13.8 RATIO (10-20); Calcium,Total 8.3 mg/dL (8.5-10.1); Chloride 99 mmol/L (98-107); Creatinine, Serum 0.94 mg/dL (0.55-1.02); EST Glomerular Filtration Rate 63 mL/min (>60); Est Glom Filt Rate - Afr Amer 77 mL/min (>60); Estimated Creatinine Clearance 52.21 ml/min; Glucose 88 mg/dL (74-106); Magnesium 2.2 mg/dL (1.6-2.6); Potassium 4.5 mmol/L (3.5-5.1); Sodium Level 130 mmol/L (136-145)
--- NOTE | 2021-09-18 19:11 | RAD_ITS ---
STUDY: X-RAY CHEST REASON FOR EXAM: Female, 66 years old. Cough. TECHNIQUE: Single AP portable view of the chest. COMPARISON: The 2020. FINDINGS: Telemetry wires overlie the chest. Lungs well-expanded. There are stable calcified granulomata without new mass or infiltrate. There is no demonstrated pleural abnormality. Normal size heart. Normal mediastinum and cathy. Normal visualized pulmonary arteries. Normal visualized aortic arch and descending thoracic aorta. The thoracic spine is obscured by the mediastinum. Normal visualized ribs, clavicles, and shoulders. There is no demonstrated abnormality of the visualized soft tissue structures of the upper abdomen. RAD/Chest 1 View (Portable) IMPRESSION: No acute cardiopulmonary disease or interval change. Electronically Signed: Alexis Jeffers DO at 19:32 EST Tel [phone], Service support ,
[2021-09-18 19:23] LABS: Lactic Acid 0.6 mmol/L (0.4-1.9)
[2021-09-18 21:33] VITALS: BP 142/68; PULSE 87; RESP 18; O2SAT 96
== END 2021-09-18 21:34 | disposition home or self-care (01) ==
PROVIDERS: Emergency Provider Emergency Medicine; PCP Family Medicine
DX: L08.9 Local infection of the skin and subcutaneous tissue, unspecified (principal); B95.8 Unspecified staphylococcus as the cause of diseases classified elsewhere; F41.9 Anxiety disorder, unspecified; J45.909 Unspecified asthma, uncomplicated; M79.7 Fibromyalgia; K21.9 Gastro-esophageal reflux disease without esophagitis; E78.5 Hyperlipidemia, unspecified; E03.9 Hypothyroidism, unspecified; E66.9 Obesity, unspecified; I10 Essential (primary) hypertension; Z79.51 Long term (current) use of inhaled steroids; Z79.899 Other long term (current) drug therapy
CPT/HCPCS: 70450; 71045; 80048; 83605; 83735; 85025; 96365; 96366; 99285; J7040; J7050; A4216

== ENCOUNTER 2021-11-11 09:45 | Emergency (ER) | payer MEDICARE, MEDICAID, SELFPAY ==
[2021-11-11 09:46] VITALS: BP 147/86; PULSE 63; RESP 20; TEMP 36.6; O2SAT 97; BMI 38.7
--- NOTE | 2021-11-11 10:06 | CT_ITS ---
STUDY: CT BRAIN WITHOUT CONTRAST REASON FOR EXAM: Female, 66 years old. Weakness. Recent fall. RADIATION DOSAGE (If Supplied By Facility): CTDIvol = ( 44.99 ) mGy, DLP = ( 812.98 ) mGycm TECHNIQUE: Transaxial CT imaging of the brain was performed without administration of intravenous contrast material. Individualized dose optimization techniques were used for this CT. COMPARISON: Comparison is made with prior examination dated 09/18/2021. FINDINGS: Normal soft tissue structures. Normal calvarium. There is mild cerebral atrophy with widening of the extra-axial spaces and ventricular dilatation. There are areas of decreased attenuation within the white matter tracts of the supratentorial brain, consistent with microvascular disease changes. Small old lacunar infarct in the right basal ganglion. Normal brainstem. Normal cerebellum. There is no intracranial hemorrhage. There are no findings of an acute ischemic infarction. Normal visualized paranasal sinuses. CT/Brain/Head without Contrast IMPRESSION: Chronic involutional changes of the brain. Electronically Signed: Guerrero Hooper MD at 12:05 EST , Service support ,
--- NOTE | 2021-11-11 10:50 | RAD_ITS ---
STUDY: X-RAY CHEST REASON FOR EXAM: Female, 66 years old. Weakness TECHNIQUE: History of fall. COMPARISON: Comparison is made with prior chest radiograph dated 09/18/2021. FINDINGS: EKG electrodes are seen. Patchy left lower lobe infiltrate. There is no demonstrated pleural abnormality. Normal size heart. Normal mediastinum and cathy. Normal visualized pulmonary arteries. There is atherosclerotic calcification of the aortic arch with tortuosity. There are diffuse degenerative changes of the visualized thoracic spine. Normal visualized ribs, clavicles, and shoulders. There is no demonstrated abnormality of the visualized soft tissue structures of the upper abdomen. RAD/Chest 1 View (Portable) IMPRESSION: Patchy left lower lobe infiltrate. Electronically Signed: Guerrero Hooper MD at 11:14 EST , Service support ,
[2021-11-11 10:59] LABS: Absolute Lymphocyte Count 0.62 X10^3/uL (0.83-4.51); Basophil# 0.02 X10^3/uL; Basophil% 0.2 % (0-1); Eosinophil# 0.17 X10^3/uL; Eosinophils% 1.6 % (0-5); Hematocrit 35.5 % (37-47); Hemoglobin 12.1 g/dL (12.0-15.0); Lymphocyte # 0.62 X10^3/ul (0.83-4.51); Lymphocyte % 5.9 % (19-41); Mean Corp Hgb Conc 34.1 g/dL (32-36); Mean Corpuscular Hgb 32.6 pg (27.0-32.0); Mean Corpuscular Volume 95.7 fL (81-99); Monocyte# 0.59 X10^3/uL; Monocyte% 5.6 % (0-10); NRBC Flagged by Analyzer 0 % (0-5); Neutrophil # 9.03 X10^3/uL (2.7-7.7); Platelet Count 218 K/mm3 (150-450); RBC Distribution Width CV 12.8 % (11.6-14.6); RBC Distribution Width SD 44.2 fl (35.1-43.9); Red Blood Count 3.71 M/mm3 (4.2-5.4); White Blood Count 10.5 K/mm3 (4.4-11.0)
[2021-11-11 11:43] LABS: ALB/GLOB Ratio 0.8 RATIO (0.9-2.4); AST(SGOT) 25 U/L (15-37); Alanine Aminotransfer ALT/SGPT 40 U/L (13-56); Albumin, Serum 2.6 g/dL (3.2-5.0); Alkaline Phosphatase 86 U/L (45-117); Anion Gap 5 (5-15); BUN 16 mg/dL (7-18); BUN/Creat Ratio 17.7 RATIO (10-20); Calcium,Total 8.6 mg/dL (8.5-10.1); Chloride 103 mmol/L (98-107); EST Glomerular Filtration Rate 67 mL/min (>60); Est Glom Filt Rate - Afr Amer 80 mL/min (>60); Estimated Creatinine Clearance 52.24 ml/min; Globulin 3.3 g/dL (2.2-4.2); Glucose 89 mg/dL (74-106); Potassium 4.3 mmol/L (3.5-5.1); Protein, Total 5.9 g/dL (6.4-8.2); Sodium Level 133 mmol/L (136-145)
[2021-11-11 12:28] VITALS: BP 176/85; PULSE 77; RESP 17; O2SAT 96
--- NOTE | 2021-11-11 14:02 | EX.ED.DYSGE1 ---
HPI History of Present Illness Chief Complaint: Fall Narrative Narrative: Patient presents with generalized weakness. She was at the pain management physician and they were noticing the she was a little more somnolent than normal. Patient told me that she just had her Lamictal increased. She also takes pain medications, as well as gabapentin she took this morning. The worry there was that she had slurred speech but is not talking to her she has no slurred speech what is perceived the slurred speech is just slower speech due to somnolence. When aroused she speaks with a normal voice. She has no weakness no paresthesias no vision changes or any other symptoms. There was a fall prior to arrival but the patient did not injure anything it was mostly soft tissue injury in the buttock. [facility] Medical History Anemia Anxiety Asthma Bipolar 1 disorder Cerebral palsy Fibromyalgia GERD (gastroesophageal reflux disease) HBP (high blood pressure) Hypercholesteremia Hyperlipidemia Hypertension Hypothyroid Irritable bowel Kyphosis Migraine Peripheral vascular disease Schizoaffective disorder Home Medications fluticasone propionate 2 spray NASAL DAILY 01/03/16 [History Last Taken 03/24/21] tizanidine 4 mg PO 4X/DAY 01/03/16 [History Last Taken 03/24/21] aspirin 81 mg chewable tablet 81 mg PO DAILY 12/16/17 [History Last Taken 03/24/21] lisinopril 5 mg PO DAILY 10/21/18 [History Last Taken 03/24/21] multivitamin 1 ea PO DAILY 12/02/18 [History Last Taken 03/24/21] lorazepam 0.5 mg PO TID 06/22/19 [History Last Taken 03/24/21] polyethylene glycol 3350 17 g PO DAILY 06/22/19 [History Last Taken 03/22/21] albuterol sulfate 2 puff INHALATION Q6H PRN PRN 04/16/20 [History Last Taken 11/05/20] alum-mag hydroxide-simeth 30 ml PO Q8 PRN 04/16/20 [History Last Taken 03/24/21] diclofenac sodium 1 applic TOPICAL Q6H PRN PRN 04/16/20 [History Last Taken 03/24/21] hydrocortisone-aloe vera 1 applic TOPICAL Q8H PRN PRN 04/16/20 [History Last Taken 03/22/21] potassium chloride 10 mEq tablet,extended release 10 meq PO DAILY 12/02/20 [History Last Taken 03/24/21] cyanocobalamin (vitamin B-12) 1,000 mcg IM Q30D 01/07/21 [History Last Taken 03/17/21] promethazine 25 mg PO Q6H PRN PRN 01/07/21 [History Last Taken 03/23/21] gabapentin 300 mg PO TID 03/24/21 [History Last Taken 03/24/21] tramadol 50 mg PO DAILY@1200,1600,2000 03/24/21 [History Last Taken 03/24/21] tramadol 100 mg PO DAILY@0800 03/24/21 [History Last Taken 03/24/21] atorvastatin 40 mg PO QHS #30 tab 03/25/21 [Rx Last Taken Unknown] clopidogrel 300 mg tablet 300 mg PO ONCE 04/21/21 [History Last Taken Unknown] acetaminophen [Acetaminophen Extra Strength] 1,000 mg PO Q6H PRN 09/18/21 [History Last Taken Unknown] artificial tears solution 1 drp OPHTHALMIC (EYE) PRN PRN 09/18/21 [History Last Taken Unknown] dextromethorphan-guaifenesin [Mucinex DM] 1 tab PO Q12H 09/18/21 [History Last Taken Unknown] ferrous sulfate 325 mg PO BID 09/18/21 [History Last Taken Unknown] adalid (Zingiber officinalis) 550 mg PO DAILY 09/18/21 [History Last Taken Unknown] levothyroxine 112 mcg PO DAILY 09/18/21 [History Last Taken Unknown] meclizine 25 mg PO Q6H PRN PRN 09/18/21 [History Last Taken Unknown] psyllium husk [Metamucil] 0.52 g PO BID 09/18/21 [History Last Taken Unknown] rabeprazole [AcipHex] 20 mg PO DAILY 09/18/21 [History Last Taken Unknown] Allergy/AdvReac Type Severity Reaction Status Date / Time lithium Allergy Mild Vomiting Verified 11/11/21 09:48 aspartame Allergy Itching Verified 11/11/21 09:48 carrot Allergy Food Verified 11/11/21 09:48 Allergy ciclesonide [From [place]] Allergy Shortness Verified 11/11/21 09:48 of breath diphenhydramine Allergy Other Verified 11/11/21 09:48 [From Benadryl] diphenhydramine HCl Allergy Rash Verified 11/11/21 09:48 [From Benadryl] imipramine Allergy Other Verified 11/11/21 09:48 levofloxacin [From Levaquin] Allergy Itching Verified 11/11/21 09:48 onabotulinumtoxinA Allergy Itching Verified 11/11/21 09:48 [From Botox] Penicillins Allergy Rash Verified 11/11/21 09:48 Sulfa (Sulfonamide Allergy NEEDS Verified 11/11/21 09:48 Antibiotics) FOLLOW-UP topiramate [From Topamax] Allergy Other Verified 11/11/21 09:48 baclofen AdvReac Severe vomitting Verified 11/11/21 09:48 erythromycin base AdvReac Severe chest pain Verified 11/11/21 09:48 fentanyl AdvReac Severe Vomiting Verified 11/11/21 09:48 lubiprostone [From Amitiza] AdvReac Severe Vomiting Verified 11/11/21 09:48 ondansetron [From Zofran] AdvReac Severe Vomiting Verified 11/11/21 09:48 oxycodone AdvReac Severe vomitting Verified 11/11/21 09:48 oxymorphone AdvReac Severe ABD pain Verified 11/11/21 09:48 and vomiting pregabalin [From Lyrica] AdvReac Severe eyes would Verified 11/11/21 09:48 stay closed codeine AdvReac nausea Verified 11/11/21 09:48 sertraline [From Zoloft] AdvReac serotoin Verified 11/11/21 09:48 syndrome environmental Allergy Other Uncoded 11/11/21 09:48 Family History Sister CVA (cerebral vascular accident) Afib Heart disease Liver disease Brother Colon cancer Father Emphysema lung Surgical History History of total left knee replacement History of total right knee replacement Social History adopted: No housing: assisted living facility current occupational status: disabled Smoking Status: Never smoker alcohol intake: never ROS ROS ED ROS Narrative Past medical history: Reviewed, it is extensive, significant for chronic pain, bipolar, CP hypothyroidism history of opiate dependence, anxiety history of benzodiazepine dependence, history of TIA Medications: Reviewed in the chart Social history: Noncontributory Review of systems: All systems negative except as indicated General: No fever. Somnolence and generalized weakness as in HPI Eyes: No visual changes ENT: No upper airway congestion, normal voice Neck: No neck pain Cardiovascular: No chest pain Respiratory: No shortness of breath or cough Gastrointestinal: No abdominal pain, nausea vomiting or diarrhea Genitourinary: No dysuria Musculoskeletal: Denies myalgias no difficulty with ambulation Skin: No rash Neurological: No memory loss, confusion or any focal weakness Psych: No recent behavioral changes Hematologic: No easy bleeding or easy bruising EXAM Physical Exam Narrative Exam Narrative: Physical exam General: Well nourished, Well developed, No Acute Distress. As I walk into the room she is somnolent and somewhat slurring her speech however when I wake her up fully and make her pay attention to me her speech is normal, she is lucid and Coherent. Head: Normocephalic, Atraumatic Eyes: Conjunctiva not pale ENT: Slightly dry mucous membranes Neck: Supple, Nontender, No lymphadenopathy Cardiovascular: Regular rate, Regular rhythm Respiratory: No distress, CTA bilaterally Abdomen: Soft, Nontender, Nondistended Back: Nontender, Normal Inspection. Negative for: CVA tenderness Extremities: Nontender, No edema Skin: Normal color, No rash Neurological: Alert, Normal Strength, Normal Sensation Psychological: Normal affect Const Vital Signs: 11/11/21 09:46 11/11/21 10:19 11/11/21 12:28 Temperature 97.8 F Temperature Source Oral Pulse Rate 63 77 Respiratory Rate 20 H 17 Respiratory Effort Normal Non-Labored Blood Pressure 147/86 H 176/85 H Blood Pressure Mean 106 115 Pulse Ox 97 96 Oxygen Delivery Method Room Air Room Air MDM MDM MDM Narrative Medical decision making narrative: Patient has an unremarkable work-up, she was observed she is now fully lucid and coherent. I believe this is likely her symptomatology. I believe she can be safely discharged. Lab Data Labs: Laboratory Results - last 24 hr 11/11/21 11/11/21 11/11/21 10:35 10:35 11:21 WBC 10.5 RBC 3.71 L Hgb 12.1 Hct 35.5 L MCV 95.7 MCH 32.6 H MCHC 34.1 RDW Std Deviation 44.2 H RDW Coeff of [place] 12.8 Plt Count 218 MPV 10.0 Immature Gran % (Auto) 0.700 Neut % (Auto) 86.0 H Lymph % (Auto) 5.[address] [place] % (Auto) 5.6 Eos % (Auto) 1.6 Baso % (Auto) 0.2 Absolute Neuts (auto) 9.0 H Absolute Lymphs (auto) 0.62 L Nucleated RBC % 0 Sodium Cancelled 133 L Potassium Cancelled 4.3 Chloride Cancelled 103 Carbon Dioxide Cancelled 25.0 Anion Gap Cancelled 5 BUN Cancelled 16 Creatinine Cancelled 0.90 Estim Creat Clear Calc Cancelled 52.24 Est GFR (MDRD) Af Amer Cancelled 80 Est GFR (MDRD) Non-Af Cancelled 67 BUN/Creatinine Ratio Cancelled 17.7 Glucose Cancelled 89 Calcium Cancelled 8.6 Total Bilirubin Cancelled 0.80 AST Cancelled 25 ALT Cancelled 40 Alkaline Phosphatase Cancelled 86 Total Protein Cancelled 5.9 L Albumin Cancelled 2.6 L Globulin Cancelled 3.3 Albumin/Globulin Ratio Cancelled 0.8 L Radiography Diagnostic Testing: Clinical Impression(s) from Imaging Studies Brain CT 11/11/21 10:06 IMPRESSION: Chronic involutional changes of the brain. Electronically Signed: Guerrero Hooper MD at 12:05 EST , Service support , Chest X-Ray 11/11/21 10:50 IMPRESSION: Patchy left lower lobe infiltrate. Electronically Signed: Guerrero Hooper MD at 11:14 EST , Service support , Discharge Plan Triage Chief Complaint: Fall ED Provider: Ziyad Ramirez Dx/Rx/DC Orders Clinical Impression: Weakness, Fall Instructions: ED Fall with Uncertain Cause, ED Weakness (Uncertain Cause) Prescriptions: No Action aspirin 81 mg tablet,chewable 81 mg PO DAILY RF: 0 potassium chloride 10 mEq tablet extended release 10 meq PO DAILY RF: 0 clopidogrel 300 mg tablet 300 mg PO ONCE RF: 0 tizanidine 4 MG tablet 4 mg PO 4X/DAY RF: 0 fluticasone propionate 1 SPRAY spray,suspension 2 spray NASAL DAILY RF: 0 lisinopril 5 MG tablet 5 mg PO DAILY RF: 0 multivitamin 1 EACH tablet 1 ea PO DAILY RF: 0 polyethylene glycol 3350 17 GM packet 17 g PO DAILY RF: 0 lorazepam 0.5 MG tablet 0.5 mg PO TID RF: 0 hydrocortisone-aloe vera 1 APPLIC cream 1 applic topical Q8H PRN PRN (Reason: Itching) RF: 0 albuterol sulfate 1 INHALER inhaler 2 puff inhalation Q6H PRN PRN (Reason: Sob &/Or Wheezing) RF: 0 alum-mag hydroxide-simeth 30 ML suspension 30 ml PO Q8 PRN (Reason: Constipation) RF: 0 diclofenac sodium 1 APPLIC gel 1 applic topical Q6H PRN PRN (Reason: Pain) RF: 0 cyanocobalamin (vitamin B-12) 1,000 MCG/ML solution 1,000 mcg IM Q30D RF: 0 promethazine 25 MG tablet 25 mg PO Q6H PRN PRN (Reason: Nausea) RF: 0 tramadol 50 mg tablet 50 mg PO DAILY@1200,1600,2000 RF: 0 gabapentin 300 mg Capsule 300 mg PO TID RF: 0 tramadol 50 mg tablet 100 mg PO DAILY@0800 RF: 0 atorvastatin 40 mg tablet 40 mg PO QHS Qty: 30 RF: 0 rabeprazole [AcipHex] 20 mg Tablet,Delayed Release (Dr/Ec) 20 mg PO DAILY RF: 0 artificial tears solution Drops 1 drp OPHTHALMIC (EYE) PRN PRN (Reason: Dry Eye(S)) RF: 0 meclizine 25 mg Capsule 25 mg PO Q6H PRN PRN (Reason: Dizziness) RF: 0 acetaminophen [Acetaminophen Extra Strength] 500 mg Tablet 1,000 mg PO Q6H PRN (Reason: Pain) RF: 0 ferrous sulfate 325 mg (65 mg iron) Tablet 325 mg PO BID RF: 0 Mucinex DM 30-600 mg Tablet Extended Release 12 Hr 1 tab PO Q12H RF: 0 psyllium husk [Metamucil] 0.52 gram Capsule 0.52 g PO BID RF: 0 adalid (Zingiber officinalis) 550 mg Capsule 550 mg PO DAILY RF: 0 levothyroxine 112 mcg tablet 112 mcg PO DAILY RF: 0 Primary Care Provider: Alex Self Referrals: Alex Self MD [Primary Care Provider] - 2 Days Disposition Disposition: Home, Self Care
[2021-11-11 14:09] VITALS: BP 181/87; PULSE 82; RESP 20; O2SAT 99
[2021-11-11 14:20] LABS: Bacteria 0 SEEN /hpf (None Seen); Mucous, Urine 0 SEEN /hpf (<or=2+); Red Blood Cells-Urine 0 SEEN /hpf (0-5); White Blood Cells 0 SEEN /hpf (0-5)
[2021-11-11 14:27] LABS: Color, Urine Straw (Yellow); Glucose, Dipstick Normal (Normal); Ketone-Dipstick Negative (Negative); Leukocyte Esterase-Dipstick Negative /ul (Negative); Nitrite-Dipstick Negative (Negative); Occult Blood-Urine 150 /ul (Negative); Protein-Dipstick Negative (Negative); Urine Bilirubin Dipstick Negative (Negative); Urine Clarity Clear (Clear); Urine Urobilinogen Normal (Normal)
[2021-11-11 14:37] LABS: Squamous Epithelial Cells - UA 0-5 SEEN /hpf (5-10)
[2021-11-11 15:40] VITALS: BP 158/129; PULSE 72; RESP 19; O2SAT 99
[2021-11-11] MEDS: Doxycycline 100 MG CAPSULE PO (15:48)
== END 2021-11-11 15:51 | disposition home or self-care (01) ==
PROVIDERS: Emergency Provider Emergency Medicine; PCP Family Medicine; Visit Provider Emergency Medicine
DX: R53.1 Weakness (principal); R47.81 Slurred speech; W19.XXXA Unspecified fall, initial encounter; Z79.899 Other long term (current) drug therapy
CPT/HCPCS: 36415; 70450; 71045; 80053; 81001; 85025; 96360; 96361; 99285; J7030; A4216

== ENCOUNTER 2021-12-24 16:39 | Outpatient (CLI) | payer MEDICARE, MEDICAID, SELFPAY ==
--- NOTE | 2021-12-24 16:46 | RAD_ITS ---
STUDY: X-RAY - LUMBAR SPINE REASON FOR EXAM: Female, 66 years old. PAIN IN SPINE TECHNIQUE: 4 view(s) of the lumbar spine were obtained. COMPARISON: 06/29/2016 FINDINGS: Normal lumbar lordosis. Moderate dextroscoliosis centered at L2/L3. There is a normal alignment of the vertebrae. There is multilevel endplate spondylosis of the lumbar vertebrae. There is multi-level degenerative disc disease with multi-level disc space narrowing. The soft tissue structures are unremarkable. RAD/L/S Spine Min 4 Views IMPRESSION: Worsening dextroscoliosis and degenerative disc disease when compared with the prior study. Electronically Signed: Low Marin MD at 8:48 EST ,
--- NOTE | 2021-12-24 16:46 | RAD_ITS ---
EXAM: XR THORACIC SPINE, 2 VIEWS : 1955 CLINICAL INDICATION: PAIN IN SPINE TECHNIQUE: Frontal and lateral views of the thoracic spine. This report was created using [employer] report generation technology. COMPARISON: None. FINDINGS: VERTEBRAE: Unremarkable. Preserved vertebral body height. No fracture. No spondylolisthesis. Preservation of the normal thoracic kyphosis. No significant facet arthropathy. DISC SPACES: There is a compression deformity of the lower thoracic vertebral body possibly T9. Degenerative changes in the lower thoracic spine with disc space narrowing and osteophyte formation. RAD/Thoracic Spine 2 Views IMPRESSION: Compression deformity of the lower thoracic vertebral body perhaps T9 or T10 of uncertain age. Further evaluation with CT scan or MRI to be beneficial. at 1815 Reported and signed by: Sesar Barry MD Electronically Signed: Sesar Barry MD at 18:14 EST ,
== END 2021-12-24 23:59 | disposition home or self-care (01) ==
LOC: MTRAD 16:43
PROVIDERS: PCP Family Medicine; Referring Provider Nurse Practitioner Family; Visit Provider Nurse Practitioner Family
DX: M54.17 Radiculopathy, lumbosacral region (principal); M47.817 Spondylosis without myelopathy or radiculopathy, lumbosacral region; M48.07 Spinal stenosis, lumbosacral region; M54.6 Pain in thoracic spine
CPT/HCPCS: 72070; 72110

== ENCOUNTER → 2022-01-27 | Outpatient (REF) | payer MEDICARE, MEDICAID, SELFPAY ==
[2022-01-27 07:54] LABS: Hematocrit 37.1 % (37-47); Hemoglobin 12.2 g/dL (12.0-15.0); Mean Corp Hgb Conc 32.9 g/dL (32-36); Mean Corpuscular Hgb 33.7 pg (27.0-32.0); Mean Corpuscular Volume 102.5 fL (81-99); Mean Platelet Vol. 9.2 fl (6.2-12.0); Platelet Count 239 K/mm3 (150-450); RBC Distribution Width CV 12.4 % (11.6-14.6); RBC Distribution Width SD 46.3 fl (35.1-43.9); Red Blood Count 3.62 M/mm3 (4.2-5.4); White Blood Count 7.4 K/mm3 (4.4-11.0)
[2022-01-27 08:16] LABS: ALB/GLOB Ratio 1.1 RATIO (0.9-2.4); AST(SGOT) 14 U/L (15-37); Alanine Aminotransfer ALT/SGPT 25 U/L (13-56); Albumin, Serum 3.1 g/dL (3.2-5.0); Alkaline Phosphatase 106 U/L (45-117); Anion Gap 0 (5-15); BUN 9 mg/dL (7-18); BUN/Creat Ratio 11.3 RATIO (10-20); Calcium,Total 8.8 mg/dL (8.5-10.1); Chloride 109 mmol/L (98-107); Cholesterol 164 mg/dL (200); EST Glomerular Filtration Rate 77 mL/min (>60); Est Glom Filt Rate - Afr Amer 93 mL/min (>60); Globulin 2.7 g/dL (2.2-4.2); Glucose 96 mg/dL (74-106); High Density Lipoprotein 66 mg/dL; Potassium 4.2 mmol/L (3.5-5.1); Protein, Total 5.8 g/dL (6.4-8.2); Sodium Level 141 mmol/L (136-145); T4 Free Direct 1.43 ng/dL (0.76-1.46); Thyroid Stim Hormone (TSH) 2.09 uIU/mL (0.358-3.74); Triglycerides 68 mg/dL; Very Low Density Lipoprotein 14 mg/dL (5-40)
[2022-01-27 08:26] LABS: Vitamin B12 368 pg/mL (211-911)
== END | disposition home or self-care (01) ==
LOC: OLS.SWAL 06:20
PROVIDERS: PCP Family Medicine; Visit Provider Family Medicine
DX: G80.9 Cerebral palsy, unspecified (principal); E78.00 Pure hypercholesterolemia, unspecified; I10 Essential (primary) hypertension; L30.9 Dermatitis, unspecified; E03.9 Hypothyroidism, unspecified; K21.00 Gastro-esophageal reflux disease with esophagitis, without bleeding
CPT/HCPCS: 36415; 80053; 80061; 82607; 84439; 84443; 85027

== ENCOUNTER 2022-01-29 15:02 | Outpatient (CLI) | payer MEDICARE, MEDICAID, SELFPAY ==
--- NOTE | 2022-01-29 08:00 | BON_PTH ---
PATIENT: STEVE FAGAN LOC: [facility]#:[id number] AGE/SX: 67/F ROOM: RE01/29/[address]: Dr. Eugenio Taylor MD : 1955 BED: DIS: 01/29/2022 SPEC #: [id number] RECD: 01/29/22 14:50 STATUS: FOX GARCIA #: [id number] GABY: 01/29/22 08:[address]: Eugenio Taylor DEPT: SURGICAL PATHOLOGY RECD BY: Griselda Phelps ENTERED: 01/30/22 09:02 SP TYPE: Bone OTHR DR: Dr. Alex Self MD [facility] Tissues: Vertebra, NOS Procedures: Decalcification bone/plaque Surgery Specimen Level V HEADER OPERATION: Kyphoplasty T10 PRE-OP DIAGNOSIS: Compression fracture T10 TISSUE SUBMITTED: T10 vertebral body MICROSCOPIC DIAGNOSIS T10 vertebral body, bone biopsy: Reactive and reparative change consistent with fracture site. No evidence of malignancy. AM:crystal 02/02/2022 MICROSCOPIC DESCRIPTION Slides are reviewed. GROSS DESCRIPTION Received in fixative is one container labeled with the patient's name and designated T10 vertebral body. The specimen consists of a cylindrical fragment of bone measuring 8 mm in length and 0.2 mm in diameter. The specimen is totally submitted in one cassette for decalcification. / AM:crystal 02/02/2022 TC:5 CPT: 46545, 56201
== END 2022-01-29 23:59 | disposition home or self-care (01) ==
LOC: LABSPEC 15:04
PROVIDERS: PCP Family Medicine; Visit Provider Anesthesiology Pain Medicine
DX: M48.54XA Collapsed vertebra, not elsewhere classified, thoracic region, initial encounter for fracture (principal)
CPT/HCPCS: 88305; 88307; 88311

== ENCOUNTER 2022-02-15 11:23 | Observation (INO) | payer MEDICARE, MEDICAID, SELFPAY ==
[2022-02-15] VITALS (9 sets, daily range): BP systolic 161–207; BP diastolic 78–103; PULSE 64–79; RESP 15–20; TEMP 36.4–37; O2SAT 96–969; BMI 37.8; BMI 36.7
--- NOTE | 2022-02-15 12:00 | CT_ITS ---
STUDY: CT BRAIN WITHOUT CONTRAST REASON FOR EXAM: Female, 67 years old. tongue numbness RADIATION DOSAGE (If Supplied By Facility): CTDIvol = ( 44.99 ) mGy, DLP = ( 812.98 ) mGycm TECHNIQUE: Transaxial CT imaging of the brain was performed without administration of intravenous contrast material. Individualized dose optimization techniques were used for this CT. COMPARISON: 11/11/2021 FINDINGS: Normal soft tissue structures. Normal calvarium. There is mild cerebral atrophy with widening of the extra-axial spaces and ventricular dilatation. There are areas of decreased attenuation within the white matter tracts of the supratentorial brain, consistent with microvascular disease changes. Normal basal ganglia and thalami. Normal brainstem. Normal cerebellum. There is no intracranial hemorrhage. There are no findings of an acute ischemic infarction. Normal visualized paranasal sinuses. CT/Brain/Head without Contrast IMPRESSION: Chronic involutional changes of the brain. Electronically Signed: Low Marin MD at 12:33 EDT ,
--- NOTE | 2022-02-15 12:00 | RAD_ITS ---
STUDY: X-RAY CHEST REASON FOR EXAM: Female, 67 years old. weakness TECHNIQUE: Single AP portable view of the chest. COMPARISON: 11/11/2021 FINDINGS: The lungs are clear and expanded. There is no demonstrated pleural abnormality. Normal size heart. Normal mediastinum and cathy. Normal visualized pulmonary arteries. Normal visualized aortic arch and descending thoracic aorta. Normal visualized thoracic spine. Normal visualized ribs, clavicles, and shoulders. There is no demonstrated abnormality of the visualized soft tissue structures of the upper abdomen. RAD/Chest 1 View (Portable) IMPRESSION: Normal x-ray examination of the chest. Electronically Signed: Low Marin MD at 12:30 EDT ,
--- NOTE | 2022-02-15 12:00 | EKG12_ITS ---
Test Reason : NEURO S/SX Blood Pressure : / mmHG Vent. Rate : 072 BPM Atrial Rate : 072 BPM P-R Int : 150 ms QRS Dur : 076 ms QT Int : 398 ms P-R-T Axes : 006 020 040 degrees QTc Int : 435 ms Normal sinus rhythm Normal ECG Confirmed by MEDARDO QUESADA, RAÚL ([id number]), book or script editor ALBER MIRAMONTES ([id number]) on 02/18/2022 8:50:16 AM Referred By: TIFFANY Confirmed By:RAÚL BATRES MD
--- NOTE | 2022-02-15 12:03 | ED.VIS.STROK ---
HPI History of Present Illness Chief Complaint: Numb/Ting Narrative Narrative: 67-year-old female with history of stroke presenting with tongue numbness. She states that her left arm and leg are numb. She states that her leg has been chronically numb since her previous leg surgery. She was told there is some nerve damage. Patient states that her left arm is also numb however when I touch it she states that she does not have decreased sensation from the contralateral side. Her speech is slightly off and she has some slurring. She denies visual complaints currently but states that she has had some episodes of double vision over the last month which resolved spontaneously. She has a history of fall about recently and has bruising to the face. She states she was seen at [facility] for this. The bruising on her right side of her face is improving. She denies neck pain. She denies chest pain, palpitations, shortness of breath. [facility] Medical History Anemia Anxiety Asthma Bipolar 1 disorder Cerebral palsy Fibromyalgia GERD (gastroesophageal reflux disease) HBP (high blood pressure) Hypercholesteremia Hyperlipidemia Hypertension Hypothyroid Irritable bowel Kyphosis Migraine Peripheral vascular disease Schizoaffective disorder Home Medications fluticasone propionate 2 spray NASAL DAILY 01/03/16 [History Last Taken 03/24/21] tizanidine 4 mg PO 4X/DAY 01/03/16 [History Last Taken 03/24/21] aspirin 81 mg chewable tablet 81 mg PO DAILY 12/16/17 [History Last Taken 03/24/21] lisinopril 5 mg PO DAILY 10/21/18 [History Last Taken 03/24/21] multivitamin 1 ea PO DAILY 12/02/18 [History Last Taken 03/24/21] lorazepam 0.5 mg PO TID 06/22/19 [History Last Taken 03/24/21] polyethylene glycol 3350 17 g PO DAILY 06/22/19 [History Last Taken 03/22/21] albuterol sulfate 2 puff INHALATION Q6H PRN PRN 04/16/20 [History Last Taken 11/05/20] alum-mag hydroxide-simeth 20 ml PO Q8 PRN 04/16/20 [History Last Taken 03/24/21] diclofenac sodium 1 applic TOPICAL Q6H PRN PRN 04/16/20 [History Last Taken 03/24/21] hydrocortisone-aloe vera 1 applic TOPICAL Q8H PRN PRN 04/16/20 [History Last Taken 03/22/21] potassium chloride 10 mEq tablet,extended release 10 meq PO DAILY 12/02/20 [History Last Taken 03/24/21] cyanocobalamin (vitamin B-12) 1,000 mcg IM Q30D 01/07/21 [History Last Taken 03/17/21] promethazine 25 mg PO Q6H PRN PRN 01/07/21 [History Last Taken 03/23/21] tramadol 50 mg PO DAILY@1200,1600,2000 03/24/21 [History Last Taken 03/24/21] tramadol 100 mg PO DAILY@0800 03/24/21 [History Last Taken 03/24/21] atorvastatin 40 mg PO QHS #30 tab 03/25/21 [Rx Last Taken Unknown] acetaminophen [Acetaminophen Extra Strength] 1,000 mg PO Q6H PRN 09/18/21 [History Last Taken Unknown] artificial tears solution 1 drp OPHTHALMIC (EYE) PRN PRN 09/18/21 [History Last Taken Unknown] dextromethorphan-guaifenesin [Mucinex DM] 1 tab PO Q12H 09/18/21 [History Last Taken Unknown] ferrous sulfate 325 mg PO BID 09/18/21 [History Last Taken Unknown] adalid (Zingiber officinalis) 550 mg PO DAILY 09/18/21 [History Last Taken Unknown] levothyroxine 112 mcg PO DAILY 09/18/21 [History Last Taken Unknown] meclizine 25 mg PO Q6H PRN PRN 09/18/21 [History Last Taken Unknown] psyllium husk [Metamucil] 0.52 g PO BID 09/18/21 [History Last Taken Unknown] rabeprazole [AcipHex] 20 mg PO DAILY 09/18/21 [History Last Taken Unknown] doxycycline hyclate 100 mg PO BID 10 Days #20 cap 11/11/21 [Rx Last Taken Unknown] gabapentin 300 mg capsule 600 mg PO TID cap 01/14/22 [History Last Taken Unknown] lamotrigine 200 mg tablet 200 mg PO BID 01/14/22 [History Last Taken Unknown] clopidogrel [Plavix] 75 mg PO DAILY 02/15/22 [History Last Taken Unknown] Allergy/AdvReac Type Severity Reaction Status Date / Time lithium Allergy Mild Vomiting Verified 01/14/22 14:42 aspartame Allergy Itching Verified 01/14/22 14:42 carrot Allergy Food Verified 01/14/22 14:42 Allergy ciclesonide [From [place]] Allergy Shortness Verified 01/14/22 14:42 of breath diphenhydramine Allergy Other Verified 01/14/22 14:42 [From Benadryl] diphenhydramine HCl Allergy Rash Verified 01/14/22 14:42 [From Benadryl] imipramine Allergy Other Verified 01/14/22 14:42 levofloxacin [From Levaquin] Allergy Itching Verified 01/14/22 14:42 onabotulinumtoxinA Allergy Itching Verified 01/14/22 14:42 [From Botox] Penicillins Allergy Rash Verified 01/14/22 14:42 Sulfa (Sulfonamide Allergy NEEDS Verified 01/14/22 14:42 Antibiotics) FOLLOW-UP topiramate [From Topamax] Allergy Other Verified 01/14/22 14:42 baclofen AdvReac Severe vomitting Verified 01/14/22 14:42 erythromycin base AdvReac Severe chest pain Verified 01/14/22 14:42 fentanyl AdvReac Severe Vomiting Verified 01/14/22 14:42 lubiprostone [From Amitiza] AdvReac Severe Vomiting Verified 01/14/22 14:42 ondansetron [From Zofran] AdvReac Severe Vomiting Verified 01/14/22 14:42 oxycodone AdvReac Severe vomitting Verified 01/14/22 14:42 oxymorphone AdvReac Severe ABD pain Verified 01/14/22 14:42 and vomiting pregabalin [From Lyrica] AdvReac Severe eyes would Verified 01/14/22 14:42 stay closed codeine AdvReac nausea Verified 01/14/22 14:42 sertraline [From Zoloft] AdvReac serotoin Verified 01/14/22 14:42 syndrome environmental Allergy Other Uncoded 01/14/22 14:42 Family History Sister CVA (cerebral vascular accident) Afib Heart disease Liver disease Brother Colon cancer Father Emphysema lung Surgical History History of total left knee replacement History of total right knee replacement Social History (Updated 02/15/22 @ 15:31 by Patsy Boland) adopted: No housing: assisted living facility current occupational status: disabled pets and animals: No do you think of yourself as: straight/heterosexual Smoking Status: Never smoker alcohol intake: never substance use type: does not use ROS ROS ED Constitutional Constitutional ED: Denies chills or fever(s) Eyes Eyes: Reports other Details: Intermittent double vision resolved ENT ENT ED: Denies rhinorrhea or sore throat Cardiovascular Cardiovascular: Denies chest pain or palpitations Respiratory/Chest Respiratory/Chest: Denies cough or dyspnea Gastrointestinal Gastrointestinal: Denies abdominal pain or nausea Genitourinary Genitourinary ED: Denies dysuria or hematuria Musculoskeletal Musculoskeletal: Denies arthralgias, myalgias or neck pain Integumentary Denies rash Neurologic Neurologic: Reports paresthesias LUE and LLE; Denies headache(s) Psychiatric Psychiatric: Denies anxiety or depression EXAM Physical Exam Const Vital Signs: 02/15/22 11:25 02/15/22 12:00 02/15/22 13:00 Temperature 97.7 F L 97.7 F L Temperature Source Temporal Oral Pulse Rate 72 78 76 Respiratory Rate 18 16 17 Blood Pressure 167/94 H 182/83 H 161/84 H Blood Pressure Mean 118 116 109 Pulse Ox 98 969 97 Oxygen Delivery Method Room Air Room Air Room Air Positive well nourished General Appearance ED: NAD HEENT Reports moist mucous membranes Nose: other Other Details: Bruising noted to the right side of the face with some edema. This extends from the forehead to the right side and the face and cheek and around the mouth. Eyes PERRL and EOMs intact bilaterally Neck no lymphadenopathy and supple Chest Wall inspection of chest normal Resp normal respiratory effort and clear to auscultation bilaterally Cardio Rate: regular rate Rhythm: regular rhythm Neuro oriented x3 Sensorium / Orientation: alert Meningeal Signs: no meningeal signs Speech: speech abnormal Details: Positive for slurred Motor Exam: strength 5/5 throughout, muscle tone normal throughout, no pronator drift and tremor Type: Positive for resting Positive for bilateral upper extremity and bilateral lower extremity Coordination: [id number] test normal Psych mental status grossly normal Skin Skin Narrative: Bruising as described above STROKE Vital Signs/Narrative: Vital Signs Temp Pulse Resp BP Pulse Ox 02/15/22 13:00 97.7 F L 76 17 161/84 H 97 02/15/22 12:00 78 16 182/83 H 969 Inital Vital Signs reviewed: Yes MDM MDM MDM Narrative Medical decision making narrative: Patient presenting with chief complaint of tongue numbness and left upper and lower extremity numbness. On examination her sensation is symmetric bilaterally on her left arm and left leg. She states that there is no difference. She states she just has the sensation of being numb. She does admit to her tongue being numb and does have some slightly slurred speech but is intelligible. She does have some facial injury on the right with bruising and swelling which does obscure the nasolabial fold in the corner of the mouth on the right but she is able to wrinkle her forehead, block her cheeks. She has no difficulty moving her tongue or sticking it out. Her NIH would be 1 for the slurred speech. CT brain negative. CBC and CMP are within normal limits with exception of an alkaline phosphatase of 119. EKG normal sinus rhythm with ventricular rate of 72 bpm without sign of ischemic change or dysrhythmia. Chest x-ray my interpretation shows no acute cardiopulmonary process and the radiologist agree. I did obtain an SOC consult. I did not hear back from them. It was reported that she needed an MRI. I do agree. I spoke with the hospitalist regarding the patient's symptoms. On her arrival the slurred speech had resolved. She still recommended inpatient MRI. Patient transferred in stable condition. Impression: 1. Slurred speech 2. Left arm paresthesia Lab Data Attestation: I reviewed the patient's lab results. Labs: Laboratory Results - last 24 hr 02/15/22 02/15/22 11:30 11:30 WBC 7.5 RBC 3.54 L Hgb 11.8 L Hct 35.7 L MCV 100.8 H MCH 33.3 H MCHC 33.1 RDW Std Deviation 45.0 H RDW Coeff of Lindsey 12.1 Plt Count 223 MPV 8.3 Immature Gran % (Auto) 0.400 Neut % (Auto) 71.9 H Lymph % (Auto) 14.5 L Pope % (Auto) 10.6 H Eos % (Auto) 2.1 Baso % (Auto) 0.5 Absolute Neuts (auto) 5.4 Absolute Lymphs (auto) 1.08 Nucleated RBC % 0 Sodium 139 Potassium 3.6 Chloride 103 Carbon Dioxide 31.0 Anion Gap 5 BUN 8 Creatinine 0.90 Estim Creat Clear Calc 51.55 Est GFR (MDRD) Af Amer 81 Est GFR (MDRD) Non-Af 67 BUN/Creatinine Ratio 8.9 L Glucose 86 Calcium 8.9 Total Bilirubin 0.30 AST 19 ALT 24 Alkaline Phosphatase 119 H Troponin I High Sens 3 Total Protein 6.4 Albumin 3.3 Globulin 3.1 Albumin/Globulin Ratio 1.1 Radiography Diagnostic Testing: Clinical Impression(s) from Imaging Studies Brain CT 02/15/22 12:00 IMPRESSION: Chronic involutional changes of the brain. Electronically Signed: Low Marin MD at 12:33 EDT , Chest X-Ray 02/15/22 12:00 IMPRESSION: Normal x-ray examination of the chest. Electronically Signed: Low Marin MD at 12:30 EDT , Stroke Documentation Questions Stroke Team Activated: No Discharge Plan Triage Chief Complaint: Numb/Ting ED Provider: Eros Pinto Dx/Rx/DC Orders Primary Care Provider: Alex Self
[2022-02-15 12:10] LABS: Absolute Lymphocyte Count 1.08 X10^3/uL (0.83-4.51); Absolute Neutrophil Count 5.4 X10^3/uL (2.0-7.7); Basophil# 0.04 X10^3/uL; Basophil% 0.5 % (0-1); Eosinophil# 0.16 X10^3/uL; Eosinophils% 2.1 % (0-5); Hematocrit 35.7 % (37-47); Hemoglobin 11.8 g/dL (12.0-15.0); Lymphocyte # 1.08 X10^3/ul (0.83-4.51); Lymphocyte % 14.5 % (19-41); Mean Corp Hgb Conc 33.1 g/dL (32-36); Mean Corpuscular Hgb 33.3 pg (27.0-32.0); Mean Corpuscular Volume 100.8 fL (81-99); Mean Platelet Vol. 8.3 fl (6.2-12.0); Monocyte# 0.79 X10^3/uL; Monocyte% 10.6 % (0-10); NRBC Flagged by Analyzer 0 % (0-5); Neutrophil # 5.35 X10^3/uL (2.7-7.7); Neutrophil % 71.9 % (47-70); Platelet Count 223 K/mm3 (150-450); RBC Distribution Width CV 12.1 % (11.6-14.6); Red Blood Count 3.54 M/mm3 (4.2-5.4); White Blood Count 7.5 K/mm3 (4.4-11.0)
--- NOTE | 2022-02-15 12:14 | TELEMED_ITS ---
[facility] Telemed has confirmed receipt of a request for visit. This document confirms receipt of the order initiating the consult. To find the results of the consultation, please view the patient's reports for the scanned Telemed Consult.
[2022-02-15 12:26] LABS: ALB/GLOB Ratio 1.1 RATIO (0.9-2.4); AST(SGOT) 19 U/L (15-37); Alanine Aminotransfer ALT/SGPT 24 U/L (13-56); Albumin, Serum 3.3 g/dL (3.2-5.0); Alkaline Phosphatase 119 U/L (45-117); Anion Gap 5 (5-15); BUN 8 mg/dL (7-18); BUN/Creat Ratio 8.9 RATIO (10-20); Calcium,Total 8.9 mg/dL (8.5-10.1); Chloride 103 mmol/L (98-107); EST Glomerular Filtration Rate 67 mL/min (>60); Est Glom Filt Rate - Afr Amer 81 mL/min (>60); Estimated Creatinine Clearance 51.55 ml/min; Globulin 3.1 g/dL (2.2-4.2); Glucose 86 mg/dL (74-106); Potassium 3.6 mmol/L (3.5-5.1); Protein, Total 6.4 g/dL (6.4-8.2); Sodium Level 139 mmol/L (136-145); Troponin-I HS 3 pg/mL (3.0-54.0)
--- NOTE | 2022-02-15 12:38 | ED.RN ---
SOC TELEMED COMPUTER AT BEDSIDE.. PT DOES NOT WANT DOOR CLOSED, DONT SHUT THAT DAMN DOOR.
--- NOTE | 2022-02-15 12:41 | ED.RN ---
PT HAS SIGNIFICANT BRUISING TO RT SIDE OF FACE AND BRUISING AROUND LT EYE. PT STATES THAT SHE HAS HAD MULTIPLE FALLS RECENTLY.
[2022-02-15] MEDS: Aspirin 81 MG TAB.CHEW 243 MG PO (14:37)
--- NOTE | 2022-02-15 14:46 | HP.PCM.HOS_ITS ---
Documented by User: Rod ESPOSITO 02/15/22 15:06 HPI - General General Date of Admission: 02/15/22 Date of Service: 02/15/22 Chief Complaint: Tongue numbness HPI Narrative STEVE FAGAN is a 67-year-old female who presents to the ED at [facility] on 02/15/2022 with a chief complaint of tongue numbness. Patient reports that she began to notice tongue numbness at about 10 AM this morning. Patient proceeded to notify her home health care nurse who did a stroke evaluation at bedside that was unremarkable. Patient does report that her tongue numbness has improved since being at the ED. Patient reports chronic bilateral lower extremity weakness as well as decreased sensation. Denies any weakness or numbness about the upper extremities bilaterally. Of note, patient reports that she has had multiple falls in this year alone, and currently has bruising about the right side of the face from a fall that took place a month ago. Patient does have an outpatient follow-up with a neurologist to assess for possible movement disorder. Patient does have a history of hypertension for wh ich she is on lisinopril, but denies any diabetes. Vital signs in the ED are hypertensive with a BP of 161/84, otherwise unremarkable. CBC and BMP are unremarkable. Brain CT does not show any acute ischemia or infarction. Patient was assessed by teleneurology service in the ED, who requested that patient come in for stroke rule out. [facility] Medical History Anemia Anxiety Asthma Bipolar 1 disorder Cerebral palsy Fibromyalgia GERD (gastroesophageal reflux disease) HBP (high blood pressure) Hypercholesteremia Hyperlipidemia Hypertension Hypothyroid Irritable bowel Kyphosis Migraine Peripheral vascular disease Schizoaffective disorder Home Medications fluticasone propionate 2 spray NASAL DAILY 01/03/16 [History Last Taken 03/24/21] tizanidine 4 mg PO 4X/DAY 01/03/16 [History Last Taken 03/24/21] aspirin 81 mg chewable tablet 81 mg PO DAILY 12/16/17 [History Last Taken 03/24/21] lisinopril 5 mg PO DAILY 10/21/18 [History Last Taken 03/24/21] multivitamin 1 ea PO DAILY 12/02/18 [History Last Taken 03/24/21] lorazepam 0.5 mg PO TID 06/22/19 [History Last Taken 03/24/21] polyethylene glycol 3350 17 g PO DAILY 06/22/19 [History Last Taken 03/22/21] albuterol sulfate 2 puff INHALATION Q6H PRN PRN 04/16/20 [History Last Taken 11/05/20] alum-mag hydroxide-simeth 20 ml PO Q8 PRN 04/16/20 [History Last Taken 03/24/21] diclofenac sodium 1 applic TOPICAL Q6H PRN PRN 04/16/20 [History Last Taken 03/24/21] hydrocortisone-aloe vera 1 applic TOPICAL Q8H PRN PRN 04/16/20 [History Last Taken 03/22/21] potassium chloride 10 mEq tablet,extended release 10 meq PO DAILY 12/02/20 [History Last Taken 03/24/21] cyanocobalamin (vitamin B-12) 1,000 mcg IM Q30D 01/07/21 [History Last Taken 03/17/21] promethazine 25 mg PO Q6H PRN PRN 01/07/21 [History Last Taken 03/23/21] tramadol 50 mg PO DAILY@1200,1600,2000 03/24/21 [History Last Taken 03/24/21] tramadol 100 mg PO DAILY@0800 03/24/21 [History Last Taken 03/24/21] atorvastatin 40 mg PO QHS #30 tab 03/25/21 [Rx Last Taken Unknown] clopidogrel 300 mg tablet 300 mg PO ONCE 04/21/21 [History Last Taken Unknown] acetaminophen [Acetaminophen Extra Strength] 1,000 mg PO Q6H PRN 09/18/21 [His tory Last Taken Unknown] artificial tears solution 1 drp OPHTHALMIC (EYE) PRN PRN 09/18/21 [History Last Taken Unknown] dextromethorphan-guaifenesin [Mucinex DM] 1 tab PO Q12H 09/18/21 [History Last T aken Unknown] ferrous sulfate 325 mg PO BID 09/18/21 [History Last Taken Unknown] adalid (Zingiber officinalis) 550 mg PO DAILY 09/18/21 [History Last Taken Unknown] levothyroxine 112 mcg PO DAILY 09/18/21 [History Last Taken Unknown] meclizine 25 mg PO Q6H PRN PRN 09/18/21 [History Last Taken Unknown] psyllium husk [Metamucil] 0.52 g PO BID 09/18/21 [History Last Taken Unknown] rabeprazole [AcipHex] 20 mg PO DAILY 09/18/21 [History Last Taken Unknown] doxycycline hyclate 100 mg PO BID 10 Days #20 cap 11/11/21 [Rx Last Taken Unknown] gabapentin 300 mg capsule 600 mg PO TID cap 01/14/22 [History Last Taken Unknown] lamotrigine 200 mg tablet 200 mg PO BID 01/14/22 [History Last Taken Unknown] Allergy/AdvReac Type Severity Reaction Status Date / Time lithium Allergy Mild Vomiting Verified 01/14/22 14:42 aspartame Allergy Itching Verified 01/14/22 14:42 carrot Allergy Food Verified 01/14/22 14:42 Allergy ciclesonide [From [place]ves[place]] Allergy Shortness Verified 01/14/22 14:42 of breath diphenhydramine Allergy Other Verified 01/14/22 14:42 [From Benadryl] diphenhydramine HCl Allergy Rash Verified 01/14/22 14:42 [From Benadryl] imipramine Allergy Other Verified 01/14/22 14:42 levofloxacin [From Levaquin] Allergy Itching Verified 01/14/22 14:42 onabotulinumtoxinA Allergy Itching Verified 01/14/22 14:42 [From Botox] Penicillins Allergy Rash Verified 01/14/22 14:42 Sulfa (Sulfonamide Allergy NEEDS Verified 01/14/22 14:42 Antibiotics) FOLLOW-UP topiramate [From Topamax] Allergy Other Verified 01/14/22 14:42 baclofen AdvReac Severe vomitting Verified 01/14/22 14:42 erythromycin base AdvReac Severe chest pain Verified 01/14/22 14:42 fentanyl AdvReac Severe Vomiting Verified 01/14/22 14:42 lubiprostone [From Amitiza] AdvReac Severe Vomiting Verified 01/14/22 14:42 ondansetron [From Zofran] AdvReac Severe Vomiting Verified 01/14/22 14:42 oxycodone AdvReac Severe vomitting Verified 01/14/22 14:42 oxymorphone AdvReac Severe ABD pain Verified 01/14/22 14:42 and vomiting pregabalin [From Lyrica] AdvReac Severe eyes would Verified 01/14/22 14:42 stay closed codeine AdvReac nausea Verified 01/14/22 14:42 sertraline [From Zoloft] AdvReac serotoin Verified 01/14/22 14:42 syndrome environmental Allergy Other Uncoded 01/14/22 14:42 Family History Sister CVA (cerebral vascular accident) Afib Heart disease Liver disease Brother Colon cancer Father Emphysema lung Surgical History History of total left knee replacement History of total right knee replacement Social History (Updated 02/15/22 @ 15:[address] Marcela Wagner DO) adopted: No housing: assisted living facility current occupational status: disabled Smoking Status: Never smoker alcohol intake: never substance use type: does not use ROS Constitutional Constitutional: Denies anorexia, change in weight, chills, fatigue, fever(s), malaise, night sweats, weakness or other Eyes Eyes: Reports blurry vision; Denies change in eye color, change in vision, discharge from eye(s), double vision, erythema, eye pain, loss of vision or other ENT HEENT: Reports headache(s); Denies abnormal hearing, dysphagia, ear pain, epistaxis, hearing loss, nasal congestion, nasal discharge, post nasal drip, sinus pressure, sore throat or other Cardiovascular Cardiovascular: Denies chest pain, claudication, dyspnea on exertion, edema, lightheadedness, orthopnea, palpitations, paroxysmal nocturnal dyspnea, rapid heart rate, syncope or other Respiratory/Chest Respiratory/Chest: Denies cough, dyspnea, excessive phlegm production, hemoptysis, productive cough, shortness of breath at rest, shortness of breath with exertion, wheezing or other Gastrointestinal Gastrointestinal: Denies abdominal pain, coffee ground emesis, constipation, diarrhea, dyspepsia, hematemesis, hematochezia, loose stools, melena, nausea, vomiting or other Genitourinary Genitourinary: Denies burning urination, difficulty urinating, dysuria, hematuria, nocturia, urinary frequency, urinary hesitancy, urinary incontinence, urinary urgency or other Musculoskeletal Musculoskeletal: Reports arthralgias, back pain and joint pain; Denies joint stiffness, joint swelling, myalgias, neck pain or other Neurologic Neurologic: Reports abnormal speech, headache(s) and numbness; Denies abnormal gait, confusion, disequilibrium, dizziness, focal weakness, paresthesias, seizure-like activity, seizures, syncope, tingling, tremor(s) or other Psychiatric Psychiatric: Denies anxiety, depression, homicidal ideation, suicidal ideation or other Endocrine Endocrinology: Denies change in body appearance, cold intolerance, excessive sweating, heat intolerance, polydipsia, polyuria or other Hematologic/Lymphatic Hematologic/Lymphatic: Denies anemia, easy bleeding, easy bruising, lymphadenopathy or other Allergic/Immunologic Allergic/Immunologic: Denies rhinitis, hives, eczemia, asthma or other Vital Signs Vital Signs Vital Signs: 02/15/22 11:25 02/15/22 12:00 02/15/22 13:00 Temperature 97.7 F L 97.7 F L Temperature Source Temporal Oral Pulse Rate 72 78 76 Respiratory Rate 18 16 17 Blood Pressure 167/94 H 182/83 H 161/84 H Blood Pressure Mean 118 116 109 Pulse Ox 98 969 97 Oxygen Delivery Method Room Air Room Air Room Air 02/15/22 14:35 Temperature 98.6 F Temperature Source Oral Pulse Rate 79 Respiratory Rate 15 Blood Pressure 161/84 H Blood Pressure Mean 109 Pulse Ox 99 Oxygen Delivery Method Room Air Weight Weight: 213 lb 2.992 oz Body Mass Index (BMI) 37.8 Physical Exam Const alert and oriented x3 General Appearance: cooperative HEENT normocephalic, head/scalp atraumatic and hearing grossly normal bilaterally HEENT Narrative: Bruising on the right side of the face Eyes PERRL and conjunctivae normal Neck no lymphadenopathy, supple and no JVD Resp normal respiratory effort, no retractions and no use of accessory muscles Cardio regular rate, regular rhythm and no JVD GI normal to inspection, nondistended, normoactive bowel sounds Extremity normal to inspection Skin Skin Narrative: Bruising about the right side of the face. Neuro Neuro Narrative: Chronic bilateral lower extremity weakness and decreased sensation. No acute focal neurological deficits noted on exam. Psych affect normal Results Lab / Micro Data Result Diagrams: 02/15/22 11:30 02/15/22 11:30 Labs: Laboratory Results - last 24 hr 02/15/22 11:30: WBC 7.5, RBC 3.54 L, Hgb 11.8 L, Hct 35.7 L, MCV 100.8 H, MCH 33.3 H, MCHC 33.1, RDW Std Deviation 45.0 H, RDW Coeff of Lindsey 12.1, Plt Count 223, MPV 8.3, Immature Gran % (Auto) 0.400, Neut % (Auto) 71.9 H, Lymph % (Auto) 14.5 L, [place] % (Auto) 10.6 H, Eos % (Auto) 2.1, Baso % (Auto) 0.5, Absolute Neuts (auto) 5.4, Absolute Lymphs (auto) 1.08, Nucleated RBC % 0 02/15/22 11:30: Sodium 139, Potassium 3.6, Chloride 103, Carbon Dioxide 31.0, Anion Gap 5, BUN 8, Creatinine 0.90, Estim Creat Clear Calc 51.55, Est GFR (MDRD) Af Amer 81, Est GFR (MDRD) Non-Af 67, BUN/Creatinine Ratio 8.9 L, Glucose 86, Calcium 8.9, Total Bilirubin 0.30, AST 19, ALT 24, Alkaline Phosphatase 119 H, Troponin I High Sens 3, Total Protein 6.4, Albumin 3.3, Globulin 3.1, Albumin/Globulin Ratio 1.[address] 02/15/22 12:00 IMPRESSION: Chronic involutional changes of the brain. Electronically Signed: Low Marin MD at 12:33 EDT Reading Location ID and State: [id number] / [employer] Tel , Service support , Chest X-Ray 02/15/22 12:00 IMPRESSION: Normal x-ray examination of the chest. Electronically Signed: Low Marin MD at 12:30 EDT , Assessment & Plan Assessment/Plan (1) Numbness of tongue: PLAN: Patient is a 67-year-old female who presents to the ED at [facility] on 02/15/2022 for evaluation and management of tongue numbness. Patient will be admitted for evaluation and management of strokelike symptoms. 1) tongue numbness Patient presents with a 5-hour history of tongue numbness, which also produces some slurred speech. Patient does have chronic bilateral lower extremity weakness as well as decreased sensation, but does not demonstrate any acute focal neurological findings. Patient does have prior history of TIAs and l acunar infarct. Brain CT unremarkable for any acute ischemia or infarction. Teleneurology consult obtained in the ED request that patient be admitted for stroke rule out. Plan; admit to PCU, obtain brain MRI, obtain echocardiogram, obtain head/neck CTA, we will not obtain new fasting lipid panel as one was obtained recently and was within normal limits, obtain hemoglobin A1c, obtain magnesium, phosphorus and TSH, CBC and BMP in a.m. 2) history of lacunar infarct Continue aspirin and statin. 3) HTN Not within goal, continue lisinopril. As needed labetalol and hydralazine ordered. 4) hypothyroidism Continue Synthroid. 5) history of seizures Continue lamotrigine. DVT prophylaxis - Lovenox Patient seen by Rod Cm PA-C, under the supervision of Dr. Wagner. Time spent on patient care: 25 minutes. Documented by User: Dr. Marcela Wagner DO 02/15/22 15:24 HPI - General General Date of Admission: 02/15/22 Date of Service: 02/15/22 Chief Complaint: Tongue paresthesias/right facial numbness HPI Narrative Ms. Fagan is a 67-year-old female who presented to the emergency department was [facility] on 02/15/2022 with a chief complaint of right-sided facial numbness and tongue numbness. She has a history of syncopal episodes which she calls TIAs. Her most recent episode was last month at which time she had a fall and has now extensive facial ecchymosis that is currently in various stages of healing. She follows with neurology as an outpatient and has an appointment with them on Wednesday of this coming week. By the time of my evaluation her symptoms have completely resolved. She states her symptoms started today at approximately 10 AM. She reported to me that it was predominantly right facial numbness and tongue numbness with some speech changes however there is some documentation that she had some left arm and leg numbness. When I questioned her about these she states that that is a chronic issue. Other than chronic movement disorder which causes chronic twitching and the above subjective complaints she states otherwise she has been feeling fine. She currently lives in assisted living at [facility]. Her vital signs in the emergency department are overall unremarkable other than elevated blood pressures ranging from 161-182/83-94 systolic. She does have known hypertension but is only on lisinopril 5 mg daily at home. Her CBC was overall unremarkable her chemistry profile was overall unremarkable. Chest x- ray showed no acute findings. A CT of her brain showed chronic involutional changes but no acute findings. In the emergency department a teleconsult to [facility] neurology was made by the emergency department physician and they recommended admission for further stroke work-up with the maintenance of permissive hypertension until we can rule out acute infarct and further imaging. [facility] Medical History Anemia Anxiety Asthma Bipolar 1 disorder Cerebral palsy Fibromyalgia GERD (gastroesophageal reflux disease) HBP (high blood pressure) Hypercholesteremia Hyperlipidemia Hypertension Hypothyroid Irritable bowel Kyphosis Migraine Peripheral vascular disease Schizoaffective disorder Home Medications fluticasone propionate 2 spray NASAL DAILY 01/03/16 [History Last Taken 03/24/21] tizanidine 4 mg PO 4X/DAY 01/03/16 [History Last Taken 03/24/21] aspirin 81 mg chewable tablet 81 mg PO DAILY 12/16/17 [History Last Taken 03/24/21] lisinopril 5 mg PO DAILY 10/21/18 [History Last Taken 03/24/21] multivitamin 1 ea PO DAILY 12/02/18 [History Last Taken 03/24/21] lorazepam 0.5 mg PO TID 06/22/19 [History Last Taken 03/24/21] polyethylene glycol 3350 17 g PO DAILY 06/22/19 [History Last Taken 03/22/21] albuterol sulfate 2 puff INHALATION Q6H PRN PRN 04/16/20 [History Last Taken 11/05/20] alum-mag hydroxide-simeth 20 ml PO Q8 PRN 04/16/20 [History Last Taken 03/24/21] diclofenac sodium 1 applic TOPICAL Q6H PRN PRN 04/16/20 [History Last Taken 03/24/21] hydrocortisone-aloe vera 1 applic TOPICAL Q8H PRN PRN 04/16/20 [History Last Taken 03/22/21] potassium chloride 10 mEq tablet,extended release 10 meq PO DAILY 12/02/20 [History Last Taken 03/24/21] cyanocobalamin (vitamin B-12) 1,000 mcg IM Q30D 01/07/21 [History Last Taken 03/17/21] promethazine 25 mg PO Q6H PRN PRN 01/07/21 [History Last Taken 03/23/21] tramadol 50 mg PO DAILY@1200,1600,2000 03/24/21 [History Last Taken 03/24/21] tramadol 100 mg PO DAILY@0800 03/24/21 [History Last Taken 03/24/21] atorvastatin 40 mg PO QHS #30 tab 03/25/21 [Rx Last Taken Unknown] clopidogrel 300 mg tablet 300 mg PO ONCE 04/21/21 [History Last Taken Unknown] acetaminophen [Acetaminophen Extra Strength] 1,000 mg PO Q6H PRN 09/18/21 [History Last Taken Unknown] artificial tears solution 1 drp OPHTHALMIC (EYE) PRN PRN 09/18/21 [History Last Taken Unknown] dextromethorphan-guaifenesin [Mucinex DM] 1 tab PO Q12H 09/18/21 [History Last Taken Unknown] ferrous sulfate 325 mg PO BID 09/18/21 [History Last Taken Unknown] adalid (Zingiber officinalis) 550 mg PO DAILY 09/18/21 [History Last Taken Unknown] levothyroxine 112 mcg PO DAILY 09/18/21 [History Last Taken Unknown] meclizine 25 mg PO Q6H PRN PRN 09/18/21 [History Last Taken Unknown] psyllium husk [Metamucil] 0.52 g PO BID 09/18/21 [History Last Taken Unknown] rabeprazole [AcipHex] 20 mg PO DAILY 09/18/21 [History Last Taken Unknown] doxycycline hyclate 100 mg PO BID 10 Days #20 cap 11/11/21 [Rx Last Taken Unknown] gabapentin 300 mg capsule 600 mg PO TID cap 01/14/22 [History Last Taken Unknown] lamotrigine 200 mg tablet 200 mg PO BID 01/14/22 [History Last Taken Unknown] Allergy/AdvReac Type Severity Reaction Status Date / Time lithium Allergy Mild Vomiting Verified 01/14/22 14:42 aspartame Allergy Itching Verified 01/14/22 14:42 carrot Allergy Food Verified 01/14/22 14:42 Allergy ciclesonide [From [place]ves[place]] Allergy Shortness Verified 01/14/22 14:42 of breath diphenhydramine Allergy Other Verified 01/14/22 14:42 [From Benadryl] diphenhydramine HCl Allergy Rash Verified 01/14/22 14:42 [From Benadryl] imipramine Allergy Other Verified 01/14/22 14:42 levofloxacin [From Levaquin] Allergy Itching Verified 01/14/22 14:42 onabotulinumtoxinA Allergy Itching Verified 01/14/22 14:42 [From Botox] Penicillins Allergy Rash Verified 01/14/22 14:42 Sulfa (Sulfonamide Allergy NEEDS Verified 01/14/22 14:42 Antibiotics) FOLLOW-UP topiramate [From Topamax] Allergy Other Verified 01/14/22 14:42 baclofen AdvReac Severe vomitting Verified 01/14/22 14:42 erythromycin base AdvReac Severe chest pain Verified 01/14/22 14:42 fentanyl AdvReac Severe Vomiting Verified 01/14/22 14:42 lubiprostone [From Amitiza] AdvReac Severe Vomiting Verified 01/14/22 14:42 ondansetron [From Zofran] AdvReac Severe Vomiting Verified 01/14/22 14:42 oxycodone AdvReac Severe vomitting Verified 01/14/22 14:42 oxymorphone AdvReac Severe ABD pain Verified 01/14/22 14:42 and vomiting pregabalin [From Lyrica] AdvReac Severe eyes would Verified 01/14/22 14:42 stay closed codeine AdvReac nausea Verified 01/14/22 14:42 sertraline [From Zoloft] AdvReac serotoin Verified 01/14/22 14:42 syndrome environmental Allergy Other Uncoded 01/14/22 14:42 Family History Sister CVA (cerebral vascular accident) Afib Heart disease Liver disease Brother Colon cancer Father Emphysema lung Surgical History History of total left knee replacement History of total right knee replacement Social History (Updated 02/15/22 @ 15:[address] Marcela Wagner DO) adopted: No housing: assisted living facility current occupational status: disabled Smoking Status: Never smoker alcohol intake: never substance use type: does not use ROS Constitutional Constitutional: Reports weakness; Denies anorexia, change in weight, chills, fatigue, fever(s), malaise, night sweats or other Eyes Eyes: Denies blurry vision, change in eye color, change in vision, discharge from eye(s), double vision, erythema, eye pain, loss of vision or other ENT HEENT: Denies abnormal hearing, dysphagia, ear pain, epistaxis, headache(s), hearing loss, nasal congestion, nasal discharge, post nasal drip, sinus pressure, sore throat or other Cardiovascular Cardiovascular: Reports chest pain; Denies claudication, dyspnea on exertion, edema, lightheadedness, orthopnea, palpitations, paroxysmal nocturnal dyspnea, rapid heart rate, syncope or other Respiratory/Chest Respiratory/Chest: Denies cough, dyspnea, excessive phlegm production, hemoptysis, productive cough, shortness of breath at rest, shortness of breath with exertion, wheezing or other Gastrointestinal Gastrointestinal: Reports constipation and diarrhea; Denies abdominal pain, coffee ground emesis, dyspepsia, hematemesis, hematochezia, loose stools, melena, nausea, vomiting or other Genitourinary Genitourinary: Denies burning urination, difficulty urinating, dysuria, hematuria, nocturia, urinary frequency, urinary hesitancy, urinary incontinence, urinary urgency or other Musculoskeletal Musculoskeletal: Reports back pain, joint pain, joint stiffness, joint swelling, myalgias and neck pain Neurologic Neurologic: Reports abnormal gait, abnormal speech, dizziness, numbness, paresthesias, tingling and tremor(s) Psychiatric Psychiatric: Reports anxiety and depression; Denies homicidal ideation, suicidal ideation or other Endocrine Endocrinology: Denies change in body appearance, cold intolerance, excessive sweating, heat intolerance, polydipsia, polyuria or other Hematologic/Lymphatic Hematologic/Lymphatic: Denies anemia, easy bleeding, easy bruising, lymphadenopathy or other Allergic/Immunologic Allergic/Immunologic: Denies rhinitis, hives, eczemia, asthma or other Physical Exam Const alert, oriented x3 and no apparent distress Constitutional Narrative: Obese, upper middle-aged white female who appears much older than stated age, sitting up in bed, appears comfortable and nontoxic, intermittent spastic movements predominantly of the lower extremities that seem to resolve when the patient is distracted General Appearance: cooperative HEENT normocephalic, hearing grossly normal bilaterally and moist oral mucous membranes HEENT Narrative: Mallampati is 2-3, no thrush present, upper dentures in place, bilateral facial ecchymosis with ecchymotic areas in various stages of healing Eyes PERRL, EOMs intact bilaterally and conjunctivae normal Eyes Narrative: No scleral icterus Neck no lymphadenopathy, supple and no JVD Neck Narrative: Trachea midline, no thyroid enlargement, neck is short and thick Resp normal respiratory effort, no retractions, no use of accessory muscles and clear to auscultation bilaterally Auscultation: Negative for crackles, rales, rhonchi or wheezes Cardio regular rate, regular rhythm, S1 normal heart sound, S2 normal heart sound, no murmurs, no rub, no gallops, no clicks and no JVD GI normal to inspection, nondistended, normoactive bowel sounds, soft to palpation, non-tender and non-distended; Negative for hepatosplenomegaly Extremity no clubbing, cyanosis or edema Extremity Narrative: Braces on bilateral lower extremities, Peripheral Pulses: Yes pulses 2+ throughout Skin no rashes or lesions noted, no wounds, skin turgor normal, no jaundice, no petechiae and no mottling Neuro oriented x3, CN's II-XII intact bilaterally, moves all extremities and no focal motor deficits Neuro Narrative: no significant weakness noted on physical exam, no pronator drift Sensorium / Orientation: awake and alert Speech: speech normal Psych affect normal Psych Narrative: Patient's thought process is somewhat tangential at times Results Lab / Micro Data Attestation: I reviewed the patient's lab results. Result Diagrams: 02/15/22 11:30 02/15/22 11:30 Assessment & Plan Assessment/Plan (1) Numbness of tongue: (2) Right facial numbness: (3) Falls: PLAN: Assessment: Tongue numbness Slurred speech Right facial numbness Remote history of lacunar infarct Recent closed head injury secondary to fall TIA Hypertension Hypothyroidism Chronic pain Cerebral palsy Recurrent syncopal episodes History of T10 compression fracture status post kyphoplasty Bipolar disorder Hyperlipidemia Neuropathy Movement disorder Multiple medication allergies GERD IBS Fibromyalgia Plan: -My overall suspicion is low for acute stroke -Patient was evaluated by [facility] neurology and they recommend stroke work-up given history and current findings -By the time of my exam her tongue numbness/slurred speech/right facial numbness had completely resolved however she said it was marked on presentation -No need for lipid panel as patient had recent lipid panel on 01/27/2021 without any marked abnormalities Check echocardiogram -Check MRI brain -Check CTA head and neck--> MRA head and neck done a year ago and showed right- sided 40% stenosis with no abnormality in flow on the left -Continue home medications as ordered -Patient already has follow-up with her neurologist and sees him on Wednesday of this week -PT/OT consultations -Recent closed head injury secondary to fall--> significant facial ecchymosis noted however no acute fractures and ecchymosis is in various stages of healing -She currently resides in assisted living at [facility] Charges/Coding Visit Charges Inpatient E&M: 96512 Init Hosp L3
--- NOTE | 2022-02-15 15:14 | CT_ITS ---
STUDY: CTA HEAD AND NECK WITH CONTRAST REASON FOR EXAM: Female, 67 years old. stroke RADIATION DOSAGE (If Supplied By Facility): CTDIvol = ( 19.95 ) mGy, DLP = ( 699.99 ) mGycm TECHNIQUE: CT angiography was performed with a multi-detector CT scanner. Data acquisition was obtained from the skull base through the vertex following intravenous administration of IV 100mL Isovue-370. MIP images were reconstructed from the axial data set. Post-processing of the angiographic images was performed, with multiplanar reformation and 3D reconstruction. Individualized dose optimization techniques were used for this CT. COMPARISON: No relevant priors. FINDINGS: Normal bilateral petrous carotid arteries. There is calcified plaque formation of the right cavernous carotid artery, without a cross-sectional luminal stenosis. Normal left cavernous carotid artery with a normal supraclinoid bifurcation. Normal right A1 segments of the anterior cerebral artery. Normal left A1 segments of the anterior cerebral artery. Normal intact anterior communicating artery (ACOM). Normal bilateral A2 segments of the anterior cerebral arteries. Normal right M1 and M2 segments of the middle cerebral arteries, with a normal M1 bifurcation. Normal left M1 and M2 segments of the middle cerebral arteries, with a normal M1 bifurcation. Normal right posterior communicating artery (PCOM). Normal left posterior communicating artery (PCOM). Normal bilateral vertebral arteries. Normal basilar artery with a normal basilar bifurcation. The visualized bilateral superior cerebellar (SCA) arteries are normal. Normal bilateral P1, P2 and visualized P3 segments of the posterior cerebral arteries. There is no demonstrated aneurysm of the [place] of [place]. There is no demonstrated abnormality of the visualized brain. AORTIC ARCH: There is a bovine origin of the great vessels arising from the aortic arch with a common origin of the brachiocephalic and left common carotid artery. Normal origin of the left subclavian artery. Normal origins of the brachiocephalic, left common carotid, and left subclavian arteries. RIGHT CAROTID ARTERIES: Normal right common carotid artery (CCA). There is moderate atherosclerotic plaque formation with moderate narrowing of the right carotid bulb. There is mild atherosclerotic plaque formation of the origin of the right internal carotid artery with less than 50% cross sectional diameter stenosis. Normal visualized cervical portion of the right internal carotid artery. Normal origin of the right external carotid artery (ECA). LEFT CAROTID ARTERIES: Normal left common carotid artery (CCA). There is moderate atherosclerotic plaque formation with moderate narrowing of the carotid bulb. There is extensive atherosclerotic plaque formation of the origin of the left internal carotid artery with an estimated stenosis of greater than 70%. Normal visualized cervical portion of the left internal carotid artery. Normal origin of the left external carotid artery (ECA). VERTEBRAL ARTERIES: Normal bilateral vertebral arteries. CT/CTA Head AND Neck W/ Contrast IMPRESSION: Normal CTA Head with contrast. Mild (40%) right carotid stenosis. Severe (80%) left carotid stenosis. Patent vertebral arteries bilaterally. Bovine arch. Electronically Signed: Low Marin MD at 18:47 EDT ,
[2022-02-15] MEDS: tiZANidine HCl 2 MG Tablet 4 MG PO ×2 (15:57→21:15)
[2022-02-15] MEDS: Gabapentin 300 MG Capsule 600 MG PO ×2 (15:57→21:15)
[2022-02-15] MEDS: traMADol 50 MG Tablet PO ×2 (16:00→21:25)
[2022-02-15] MEDS: LORazepam 0.5 MG Tablet PO ×2 (16:00→21:25)
[2022-02-15] MEDS: lamoTRIgine 100 MG Tablet 200 MG PO (21:14)
[2022-02-15] MEDS: Psyllium 1 PACKET PO (21:15)
[2022-02-15] MEDS: Atorvastatin Calcium 40 MG Tablet PO (21:15)
[2022-02-16] VITALS (9 sets, daily range): BP systolic 150–192; BP diastolic 72–109; PULSE 63–79; RESP 16–18; TEMP 36.4–36.8; O2SAT 97–99; BMI 36.7
[2022-02-16] MEDS: Acetaminophen 325 MG Tablet 650 MG PO (03:29)
[2022-02-16] MEDS: hydrALAZINE 20 MG/ML Vial 5 MG IV (03:39)
[2022-02-16] MEDS: 0.9% Saline Lock 10 ML Syringe IV (03:40)
[2022-02-16] MEDS: Levothyroxine 112 MCG Tablet PO (05:03)
[2022-02-16] MEDS: LORazepam 0.5 MG Tablet PO ×2 (05:03→14:32)
[2022-02-16] MEDS: Gabapentin 300 MG Capsule 600 MG PO ×2 (05:03→14:32)
--- NOTE | 2022-02-16 06:18 | ECHOD_ITS ---
Reason For Study: TIA/CVA Procedure This was a 2D Doppler, Color Flow transthoracic echocardiogram. The exam was of adequate technical quality. Exam performed portable in patient room. Left Ventricle Normal LV size. Left ventricular systolic function is normal. The estimated ejection fraction is 65 %. There is evidence of diastolic dysfunction. No regional wall motion abnormalities noted. Right Ventricle Normal RV size. Normal systolic function. Atria The left atrium is mildly enlarged. Normal right atrium. No doppler evidence for ASD. Bubble contrast study negative for right to left interatrial shunt. Mitral Valve There is mild to moderate mitral annular calcification. Extension of the mitral annular calcification onto the posterior mitral valve leaflet. Trivial mitral valve insufficiency. Tricuspid Valve Normal tricuspid valve. Trivial tricuspid valve insufficiency. Right ventricular systolic pressure estimated to be 27 mmHg. Aortic Valve Trisinus/trileaflet aortic valve. Mild diffuse aortic valve calcification. Pulmonic Valve The pulmonic valve is not well visualized. Trivial pulmonic valve insufficiency. Great Vessels Normal sized aortic root. Calcified aortic root. Pericardium/Pleural No pericardial effusion. Medication Performed a rapid injection of agitated mix of 9 cc saline and 1cc air to assess for atrial septal defect. MMode/2D Measurements & Calculations LVIDd: 4.8 cm IVSd: 1.1 cm Ao root diam: 3.0 cm LVIDs: 3.2 cm LVPWd: 1.1 cm RVDd: 3.7 cm FS: 33.7 % LAV(MOD-bp): 68.0 ml LVAd ap4: 24.0 cm2 SV(MOD-sp4): 39.7 ml LAV(MOD-bp) Indexed: 34.7 ml/m2 LVLd ap4: 7.3 cm LAV(MOD-sp2): 61.3 ml EDV(MOD-sp4): 66.1 ml LAV(MOD-sp4): 69.2 ml EDV(sp4-el): 66.7 ml LVAs ap4: 13.4 cm2 LVLs ap4: 5.7 cm ESV(MOD-sp4): 26.4 ml ESV(sp4-el): 26.7 ml EF(MOD-sp4): 60.1 % EF(sp4-el): 59.9 % SV(sp4-el): 40.0 ml LA A4 area: 21.9 cm2 LA dimension(2D): 3.7 cm RA A4 area: 13.3 cm2 Doppler Measurements & Calculations MV E max caden: 81.2 cm/sec Lat Peak E' Caden: 4.8 cm/sec Med Peak E' Caden: 5.4 cm/sec MV A max caden: 89.8 cm/sec E/E' lat: 17.0 E/E' med: 15.2 MV E/A: 0.90 Ao V2 max: 190.0 cm/sec LV V1 max: 127.2 cm/sec PA V2 max: 104.6 cm/sec Ao max P.4 mmHg LV V1 max P.5 mmHg Ao V2 mean: 131.5 cm/sec Ao mean P.7 mmHg Ao V2 VTI: 38.6 cm TR max caden: 243.1 cm/sec TR max P.6 mmHg ECHO/Echo Complete Interpretation Summary Left ventricular systolic function is normal. The estimated ejection fraction is 65 %. The left atrium is mildly enlarged. There is mild to moderate mitral annular calcification. Extension of the mitral annular calcification onto the posterior mitral valve l eaflet. Trivial mitral valve insufficiency. Trivial tricuspid valve insufficiency. Mild diffuse aortic valve calcification. Trivial pulmonic valve insufficiency. Calcified aortic root. Right ventricular systolic pressure estimated to be 27 mmHg. There is evidence of diastolic dysfunction. Bubble contrast study negative for right to left interatrial shunt. Ordering Physician: Marcela Wagner Referring Physician: Alex Self Performed By: Martha West, MAYO, RVT
[2022-02-16 06:25] LABS: Absolute Lymphocyte Count 1.01 X10^3/uL (0.83-4.51); Absolute Neutrophil Count 3.8 X10^3/uL (2.0-7.7); Basophil# 0.03 X10^3/uL; Basophil% 0.5 % (0-1); Eosinophil# 0.15 X10^3/uL; Eosinophils% 2.7 % (0-5); Hematocrit 37.2 % (37-47); Hemoglobin 12.6 g/dL (12.0-15.0); Lymphocyte # 1.01 X10^3/ul (0.83-4.51); Lymphocyte % 18.1 % (19-41); Mean Corp Hgb Conc 33.9 g/dL (32-36); Mean Corpuscular Hgb 33.5 pg (27.0-32.0); Mean Corpuscular Volume 98.9 fL (81-99); Mean Platelet Vol. 8.5 fl (6.2-12.0); Monocyte# 0.56 X10^3/uL; NRBC Flagged by Analyzer 0 % (0-5); Neutrophil # 3.82 X10^3/uL (2.7-7.7); Neutrophil % 68.5 % (47-70); Platelet Count 211 K/mm3 (150-450); RBC Distribution Width CV 12.1 % (11.6-14.6); RBC Distribution Width SD 44.1 fl (35.1-43.9); Red Blood Count 3.76 M/mm3 (4.2-5.4); White Blood Count 5.6 K/mm3 (4.4-11.0)
[2022-02-16 07:04] LABS: AST(SGOT) 16 U/L (15-37); Alanine Aminotransfer ALT/SGPT 23 U/L (13-56); Albumin, Serum 3.2 g/dL (3.2-5.0); Alkaline Phosphatase 122 U/L (45-117); Anion Gap 5 (5-15); BUN 6 mg/dL (7-18); BUN/Creat Ratio 8.1 RATIO (10-20); Bilirubin, Direct 0.19 mg/dL (0.00-0.30); Calcium,Total 8.7 mg/dL (8.5-10.1); Chloride 107 mmol/L (98-107); Cholesterol 145 mg/dL (200); Creatinine, Serum 0.74 mg/dL (0.55-1.02); EST Glomerular Filtration Rate 83 mL/min (>60); Est Glom Filt Rate - Afr Amer 101 mL/min (>60); Glucose 86 mg/dL (74-106); High Density Lipoprotein 64 mg/dL; Magnesium 2.1 mg/dL (1.6-2.6); Phosphorus 2.8 mg/dL (2.5-4.9); Potassium 3.5 mmol/L (3.5-5.1); Protein, Total 6.2 g/dL (6.4-8.2); Sodium Level 141 mmol/L (136-145); Thyroid Stim Hormone (TSH) 3.98 uIU/mL (0.358-3.74); Triglycerides 62 mg/dL; Very Low Density Lipoprotein 12 mg/dL (5-40)
[2022-02-16 07:33] LABS: Hemoglobin A1c 4.8 % (3.8-5.6)
[2022-02-16] MEDS: Aspirin 81 MG TAB.CHEW PO (08:37)
[2022-02-16] MEDS: Lisinopril 5 MG Tablet PO (08:37)
[2022-02-16] MEDS: lamoTRIgine 100 MG Tablet 200 MG PO (08:37)
[2022-02-16] MEDS: Fluticasone 0.05% 1 SPRAY NASAL.SRY 2 SPRAY NASAL (08:37)
[2022-02-16] MEDS: tiZANidine HCl 2 MG Tablet 4 MG PO ×2 (08:37→14:33)
[2022-02-16] MEDS: Psyllium 1 PACKET PO (08:38)
[2022-02-16] MEDS: Enoxaparin 40 MG/0.4 ML Syringe SC (08:38)
[2022-02-16] MEDS: traMADol 50 MG Tablet 100 MG PO (08:42)
--- NOTE | 2022-02-16 09:00 | MRI_ITS ---
EXAM: MR HEAD WITHOUT INTRAVENOUS CONTRAST CLINICAL INDICATION: Stroke. TECHNIQUE: Multiplanar and multisequence MR images of the brain were obtained without intravenous contrast. This report was created using SDI report generation technology. COMPARISON: CT head without contrast 02/15/2022. FINDINGS: BRAIN AND EXTRA-AXIAL SPACES: No diffusion restriction to suspect acute or subacute ischemic infarct. T2 FLAIR hyperintensity foci in the white matter of both cerebral hemispheres and across the central pontine tegmentum are chronic white matter ischemic changes. No intra- or extra-axial hemorrhage. No intracranial mass or mass effect. Posterior fossa structures are unremarkable. Ventricles are appropriate for age. No hydrocephalus. Basal cisterns are patent. SELLA: Unremarkable. Normal sella turcica, pituitary gland, infundibular stalk, optic chiasm and hypothalamus. AUDITORY SYSTEM: Unremarkable. The internal auditory canals are patent. BONES/JOINTS: Unremarkable. No discrete lytic or blastic abnormalities. SINUSES: Unremarkable as visualized. Clear. MASTOID AIR CELLS: Unremarkable as visualized. Clear. ORBITS: Unremarkable as visualized. Both globes, extraocular muscles, optic nerves and retrobulbar fat appear unremarkable. VASCULATURE: Unremarkable as visualized. Normal flow voids in the major intracranial circulation. MRI/Brain without Contrast IMPRESSION: 1. No MRI evidence of acute or subacute ischemic infarct or acute intracranial abnormality. 2. Chronic white matter ischemic changes in both cerebral hemispheres and across the central pontine tegmentum. Electronically Signed: Hardeep Martin MD at 10:30 EDT ,
--- NOTE | 2022-02-16 10:07 | CASEMGMT ---
Patient is from [facility]. BRYCE faxed updates to Cyrus at [facility]. BRYCE also wrote on fax face sheet that if patient's MRI is negative she may be discharged today so she can see her neurologist tomorrow at an already scheduled appt. Pari Donohue [employer] JOSE
--- NOTE | 2022-02-16 11:15 | CDU_ITS ---
Reason For Study: TIA Rt. Velocities/BP Lt. Velocities/BP Prox CCA 83.9/13.4 cm/sec. Prox CCA 72.1/10.8 cm/sec. Mid CCA 64.3/16 cm/sec. Mid CCA 86.5/16 cm/sec. Dist CCA 59.1/16 cm/sec. Dist CCA 66.9/17.3 cm/sec. Prox ICA 100.8/27.8 cm/sec. Prox ICA 102.1/31.7 cm/sec. Mid ICA 52.6/12.1 cm/sec. Mid ICA 93/30.4 cm/sec. Dist ICA 93/23.9 cm/sec. Dist ICA 102.1/31.7 cm/sec. Rt. ICA/CCA = 1.57. Lt. ICA/CCA = 1.42. Prox ECA 82.6/8.2 cm/sec. Prox ECA 66.9/4.3 cm/sec. Rt. Vert. 48.6/17.3 cm/sec. Lt. Vert. 76/23.9 cm/sec. Right Extracranial There is homogeneous, smooth atherosclerotic plaque noted in the right common carotid artery. There is heterogeneous, irregular atherosclerotic plaque noted in the right internal carotid artery. There is intimal thickening but no significant atherosclerotic plaque noted in the right external carotid artery. Antegrade flow is noted in the right vertebral artery. Left Extracranial There is homogeneous, smooth atherosclerotic plaque noted in the left common carotid artery. There is heterogeneous, irregular atherosclerotic plaque noted in the left internal carotid artery. The atherosclerotic plaque causes acoustic shadowing. There is heterogeneous, irregular atherosclerotic plaque noted in the left external carotid artery. Antegrade flow is noted in the left vertebral artery. Procedure Carotid Duplex 25791. This is a Carotid Duplex examination using B-mode, color flow and specral Doppler. Exam performed in department. VL/Carotid Duplex Ultrasound Interpretation Summary Minimal irregular plaque at the proximal right internal carotid artery with les s than 50% stenosis of the right internal carotid artery Less than 50% stenosis right external carotid artery Calcific plaque with shadowing at the proximal left internal carotid artery wit h less than 50% stenosis Less than 50% stenosis left external carotid artery Patent and antegrade vertebral arteries bilaterally Ordering Physician: Sharonda Rider Referring Physician: Alex Self Performed By: Bethany Robledo RVT
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
--- NOTE | 2022-02-16 12:43 | RAD_ITS ---
INDICATION: lower back pain with fall EXAMINATION/TECHNIQUE: X-RAY - XR Spine Lumbar 2 or 3 Views COMPARISON: None. FINDINGS: Extensive degenerative changes of the thoracolumbar spine visualized. Dextroscoliosis of the thoracolumbar junction is seen. Decreased intervertebral disc height visualized at multiple levels. Increased density visualized consistent with degenerative changes. RAD/Lumbar Spine 2 or 3 Views IMPRESSION: Since degenerative changes, no acute abnormality is seen. Electronically Signed: Min Wren MD at 12:55 EDT ,
--- NOTE | 2022-02-16 12:45 | PCM.DC ---
Discharge Instructions Diet Discharge Diet: No restrictions Activity Discharge Activity: Return to Normal Activity Weight Bearing Status: Weight bearing as tolerated Dressing / Incision Call your doctor if you observe: Fever of 101 or Higher, Numbness or Tingling, Shortness of breath, Dizziness, Chest pain, Increased palpitations (irregular heartbeat) and Calf discomfort Follow Up Care Please Follow Up With: Primary care provider When: Within the next two weeks. Test Results: Test results from this visit will be discussed in further detail at your follow-up appointment, if applicable. Discharge Plan Admission Admit Date/Time: 02/15/22 14:17 Primary Reason for Your Visit: Tongue numbness Attending Provider: Corey Salcido Primary Care Provider: Alex Self Consulting Providers: Augustine Curtis Instructions Additional Instructions / Restrictions: * Proceed to your scheduled Neurology appointment on 02/17. Discharge Orders/Prescriptions Prescriptions: Continued aspirin 81 mg tablet,chewable 81 mg PO DAILY RF: 0 potassium chloride 10 mEq tablet extended release 10 meq PO DAILY RF: 0 lamotrigine 200 mg tablet 200 mg PO BID RF: 0 tizanidine 4 MG tablet 4 mg PO 4X/DAY RF: 0 fluticasone propionate 1 SPRAY spray,suspension 2 spray NASAL DAILY RF: 0 lisinopril 5 MG tablet 5 mg PO DAILY RF: 0 multivitamin 1 EACH tablet 1 ea PO DAILY RF: 0 polyethylene glycol 3350 17 GM packet 17 g PO DAILY RF: 0 lorazepam 0.5 MG tablet 0.5 mg PO TID RF: 0 hydrocortisone-aloe vera 1 APPLIC cream 1 applic topical Q8H PRN PRN (Reason: Itching) RF: 0 albuterol sulfate 1 INHALER inhaler 2 puff inhalation Q6H PRN PRN (Reason: Sob &/Or Wheezing) RF: 0 alum-mag hydroxide-simeth 30 ML suspension 20 ml PO Q8 PRN (Reason: Constipation) RF: 0 diclofenac sodium 1 APPLIC gel 1 applic topical Q6H PRN PRN (Reason: Pain) RF: 0 cyanocobalamin (vitamin B-12) 1,000 MCG/ML solution 1,000 mcg IM Q30D RF: 0 promethazine 25 MG tablet 25 mg PO Q6H PRN PRN (Reason: Nausea) RF: 0 tramadol 50 mg tablet 50 mg PO DAILY@1200,1600,2000 RF: 0 tramadol 50 mg tablet 100 mg PO DAILY@0800 RF: 0 atorvastatin 40 mg tablet 40 mg PO QHS Qty: 30 RF: 0 gabapentin 300 mg capsule 600 mg PO TID RF: 0 rabeprazole [AcipHex] 20 mg Tablet,Delayed Release (Dr/Ec) 20 mg PO DAILY RF: 0 artificial tears solution Drops 1 drp OPHTHALMIC (EYE) PRN PRN (Reason: Dry Eye(S)) RF: 0 meclizine 25 mg Capsule 25 mg PO Q6H PRN PRN (Reason: Dizziness) RF: 0 acetaminophen [Acetaminophen Extra Strength] 500 mg Tablet 1,000 mg PO Q6H PRN (Reason: Pain) RF: 0 ferrous sulfate 325 mg (65 mg iron) Tablet 325 mg PO BID RF: 0 Mucinex DM 30-600 mg Tablet Extended Release 12 Hr 1 tab PO Q12H RF: 0 psyllium husk [Metamucil] 0.52 gram Capsule 0.52 g PO BID RF: 0 adalid (Zingiber officinalis) 550 mg Capsule 550 mg PO DAILY RF: 0 levothyroxine 112 mcg tablet 112 mcg PO DAILY RF: 0 clopidogrel [Plavix] 75 mg Tablet 75 mg PO DAILY RF: 0 Discontinued doxycycline hyclate 100 mg capsule 100 mg PO BID 10 Days Qty: 20 RF: 0 Referrals / Follow Up: Alex Self MD [Primary Care Provider] - Within 2 Weeks Disposition Disposition (needs filled in before D/C Order can be placed): Home, Self Care
[2022-02-16] MEDS: traMADol 50 MG Tablet PO ×2 (13:05→16:17)
--- NOTE | 2022-02-16 13:30 | CASEMGMT ---
SW spoke with patient. Introduced self and role at [facility]. SW let patient know that she is going to be discharged back to [facility] today. Patient has a ride. BRYCE did call Cyrus at [facility] and leave him a voice mail letting him know patient will be returning today. BRYCE will also try the nurses' station at [facility]. Pari GARCIA
--- NOTE | 2022-02-16 13:53 | CASEMGMT ---
BRYCE called [facility] and spoke with Merissa. BRYCE let Merissa know that patient will be returning today. Cyrus is not in today, but she will let him know. Pari GARCIA
--- NOTE | 2022-02-16 15:15 | DS.PCM_ITS ---
Documented by User: Rod ESPOSITO 02/16/22 15:23 Providers Date of Admission: 02/15/22 Date of Discharge: 02/16/22 Primary Care Physician: Dr. Alex Self MD Consultations 02/16/22 09:57 Consult: Vascular Surgery Routine Consulting Provider: Augustine Curtis Reason for Consult: Severe (80%) left carotid stenosis seen on Head/Neck CT- A. EMERGENT Consult: No MD Notified: Yes Date Notified: 02/16/22 Time Notified: 09:58 Method of Notification: Verbal Reason For Visit: R SIDED TONGUE NUMBNESS/DYSARTHRIA Diagnosis Discharge Diagnosis (1) Numbness of tongue: Status: Acute Code(s): R20.0 - Anesthesia of skin Medications at Discharge Home Medications fluticasone propionate 2 spray NASAL DAILY 01/03/16 tizanidine 4 mg PO 4X/DAY 01/03/16 aspirin 81 mg chewable tablet 81 mg PO DAILY 12/16/17 lisinopril 5 mg PO DAILY 10/21/18 multivitamin 1 ea PO DAILY 12/02/18 lorazepam 0.5 mg PO TID 06/22/19 polyethylene glycol 3350 17 g PO DAILY 06/22/19 albuterol sulfate 2 puff INHALATION Q6H PRN PRN 04/16/20 alum-mag hydroxide-simeth 20 ml PO Q8 PRN 04/16/20 diclofenac sodium 1 applic TOPICAL Q6H PRN PRN 04/16/20 hydrocortisone-aloe vera 1 applic TOPICAL Q8H PRN PRN 04/16/20 potassium chloride 10 mEq tablet,extended release 10 meq PO DAILY 12/02/20 cyanocobalamin (vitamin B-12) 1,000 mcg IM Q30D 01/07/21 promethazine 25 mg PO Q6H PRN PRN 01/07/21 tramadol 50 mg PO DAILY@1200,1600,2000 03/24/21 tramadol 100 mg PO DAILY@0800 03/24/21 atorvastatin 40 mg PO QHS #30 tab 03/25/21 Mucinex DM 1 tab PO Q12H 09/18/21 acetaminophen [Acetaminophen Extra Strength] 1,000 mg PO Q6H PRN 09/18/21 artificial tears solution 1 drp OPHTHALMIC (EYE) PRN PRN 09/18/21 ferrous sulfate 325 mg PO BID 09/18/21 adalid (Zingiber officinalis) 550 mg PO DAILY 09/18/21 levothyroxine 112 mcg PO DAILY 09/18/21 meclizine 25 mg PO Q6H PRN PRN 09/18/21 psyllium husk [Metamucil] 0.52 g PO BID 09/18/21 rabeprazole [AcipHex] 20 mg PO DAILY 09/18/21 gabapentin 300 mg capsule 600 mg PO TID cap 01/14/22 lamotrigine 200 mg tablet 200 mg PO BID 01/14/22 clopidogrel [Plavix] 75 mg PO DAILY 02/15/22 Hospital Course Procedures 2-D Echocardiogram and Transthoracic echo Summary of Care Provided Minutes Spent on Discharge: 20 Hospital Course: Patient is a 67-year-old female who was admitted to [facility] on 02/15/2022 for evaluation and management of tongue numbness and stroke rule out. Patient did not demonstrate nor did she complain of any acute focal neurological deficits during admission. Patient does have bilateral lower extremity weakness and numbness, but these are chronic complaints for this patient. Brain MRI was obtained and did not demonstrate any evidence of acute ischemia or infarction. Echocardiogram was obtained and demonstrated normal LV systolic function, an EF of 65% and negative bubble study with no evidence of diastolic dysfunction. Head/neck CT-A was obtained and was significant for a was thought to be severe 80% stenosis in the left carotid artery. Given significant stenosis, vascular surgery consult was obtained. Venous duplex ultrasound showed less than 50% stenosis in both right external and left external carotid artery as well as less than 50% stenosis in the left and right ICA. Blood flow is patent and anterograde in the vertebral arteries bilaterally. Lumbar spine x-ray was obtained given patient reports of back pain and recent falls, negative for any acute trauma. Patient already has an outpatient neurology follow-up on 02/17 to evaluate for multiple recent falls. Patient is to proceed to prior appointment. All other home medications were continued. Patient seen by Rod Cm PA-C, under the supervision of Dr. Salcido. Physical Exam Narrative Patient is a 67-year-old female resting in bed, alert and orient x3. Patient denies development of any new symptoms overnight. Does not appear in acute distress. Const alert, oriented x3 and no apparent distress HEENT normocephalic, head/scalp atraumatic and hearing grossly normal bilaterally HEENT Narrative: Bruising about the right side of the face. Eyes PERRL and conjunctivae normal Neck no lymphadenopathy, supple and no JVD Resp normal respiratory effort, no retractions and no use of accessory muscles Cardio regular rate, regular rhythm and no JVD GI normal to inspection, nondistended, normoactive bowel sounds Extremity normal to inspection Skin no rashes or lesions noted Neuro CN's II-XII intact bilaterally Psych affect normal Weight / BMI Weight Weight: 207 lb 3.752 oz Body Mass Index (BMI) 36.7 ABG / Lab / Microbiology Data Result Diagrams: 02/16/22 05:55 02/16/22 05:55 Laboratory: Laboratory Results - last 24 hr 02/16/22 05:55: Hemoglobin A1c 4.8 02/16/22 05:55: WBC 5.6, RBC 3.76 L, Hgb 12.6, Hct 37.2, MCV 98.9, MCH 33.5 H, MCHC 33.9, RDW Std Deviation 44.1 H, RDW Coeff of Lindsey 12.1, Plt Count 211, MPV 8.5, Immature Gran % (Auto) 0.200, Neut % (Auto) 68.5, Lymph % (Auto) 18.1 L, Barber % (Auto) 10.0, Eos % (Auto) 2.7, Baso % (Auto) 0.5, Absolute Neuts (auto) 3.8, Absolute Lymphs (auto) 1.01, Nucleated RBC % 0 02/16/22 05:55: Sodium 141, Potassium 3.5, Chloride 107, Carbon Dioxide 29.0, Anion Gap 5, BUN 6 L, Creatinine 0.74, Estim Creat Clear Calc 62.70, Est GFR (MDRD) Af Amer 101, Est GFR (MDRD) Non-Af 83, BUN/Creatinine Ratio 8.1 L, Glucose 86, Calcium 8.7, Phosphorus 2.8, Magnesium 2.1, Total Bilirubin 0.50, Direct Bilirubin 0.19, AST 16, ALT 23, Alkaline Phosphatase 122 H, Total Protein 6.2 L, Albumin 3.2, Globulin 3.0, Triglycerides 62, Cholesterol 145, LDL Cholesterol 69, VLDL Cholesterol 12, HDL Cholesterol 64, TSH 3.98 H Radiography Diagnostic Testing: Radiology Impression Head/Neck CTA 02/15/22 15:14 IMPRESSION: Normal CTA Head with contrast. Mild (40%) right carotid stenosis. Severe (80%) left carotid stenosis. Patent vertebral arteries bilaterally. Bovine arch. Electronically Signed: Low Marin MD at 18:47 EDT , Echocardiogram 02/16/22 06:18 Interpretation Summary Left ventricular systolic function is normal. The estimated ejection fraction is 65 %. The left atrium is mildly enlarged. There is mild to moderate mitral annular calcification. Extension of the mitral annular calcification onto the posterior mitral valve leaflet. Trivial mitral valve insufficiency. Trivial tricuspid valve insufficiency. Mild diffuse aortic valve calcification. Trivial pulmonic valve insufficiency. Calcified aortic root. Right ventricular systolic pressure estimated to be 27 mmHg. There is evidence of diastolic dysfunction. Bubble contrast study negative for right to left interatrial shunt. Ordering Physician: Marcela Wagner Referring Physician: Alex Self Performed By: Martha West, MAYO, RVT Brain MRI 02/16/22 09:00 IMPRESSION: 1. No MRI evidence of acute or subacute ischemic infarct or acute intracranial abnormality. 2. Chronic white matter ischemic changes in both cerebral hemispheres and across the central pontine tegmentum. Electronically Signed: Hardeep Martin MD at 10:30 EDT , Carotid Duplex 02/16/22 11:15 Interpretation Summary Minimal irregular plaque at the proximal right internal carotid artery with less than 50% stenosis of the right internal carotid artery Less than 50% stenosis right external carotid artery Calcific plaque with shadowing at the proximal left internal carotid artery with less than 50% stenosis Less than 50% stenosis left external carotid artery Patent and antegrade vertebral arteries bilaterally Ordering Physician: Sharonda Rider Referring Physician: Alex Self Performed By: Bethany Robledo, [facility] Lumbar Spine X-Ray 02/16/22 12:43 IMPRESSION: Since degenerative changes, no acute abnormality is seen. Electronically Signed: Min Wren MD at 12:55 EDT Reading Location ID and State: [facility] / [place] Tel , Service support , D/C Instructions Discharge Diet: No restrictions Weight Bearing Status: Weight bearing as tolerated Call your doctor if you observe: Fever of 101 or Higher, Numbness or Tingling, Shortness of breath, Dizziness, Chest pain, Increased palpitations (irregular heartbeat) and Calf discomfort Please Follow Up With: Primary care provider When: Within the next two weeks. Meaningful Use Info Meaningful Use Diagnoses (Choose all that apply): None applicable Discharge Plan Admission Admit Date/Time: 02/15/22 14:17 Primary Reason for Your Visit: Tongue numbness Attending Provider: Corey Salcido Primary Care Provider: Alex Self Consulting Providers: Augustine Curtis Instructions Additional Instructions / Restrictions: * Proceed to your scheduled Neurology appointment on 02/17. Discharge Orders/Prescriptions Prescriptions: Continued aspirin 81 mg tablet,chewable 81 mg PO DAILY RF: 0 potassium chloride 10 mEq tablet extended release 10 meq PO DAILY RF: 0 lamotrigine 200 mg tablet 200 mg PO BID RF: 0 tizanidine 4 MG tablet 4 mg PO 4X/DAY RF: 0 fluticasone propionate 1 SPRAY spray,suspension 2 spray NASAL DAILY RF: 0 lisinopril 5 MG tablet 5 mg PO DAILY RF: 0 multivitamin 1 EACH tablet 1 ea PO DAILY RF: 0 polyethylene glycol 3350 17 GM packet 17 g PO DAILY RF: 0 lorazepam 0.5 MG tablet 0.5 mg PO TID RF: 0 hydrocortisone-aloe vera 1 APPLIC cream 1 applic topical Q8H PRN PRN (Reason: Itching) RF: 0 albuterol sulfate 1 INHALER inhaler 2 puff inhalation Q6H PRN PRN (Reason: Sob &/Or Wheezing) RF: 0 alum-mag hydroxide-simeth 30 ML suspension 20 ml PO Q8 PRN (Reason: Constipation) RF: 0 diclofenac sodium 1 APPLIC gel 1 applic topical Q6H PRN PRN (Reason: Pain) RF: 0 cyanocobalamin (vitamin B-12) 1,000 MCG/ML solution 1,000 mcg IM Q30D RF: 0 promethazine 25 MG tablet 25 mg PO Q6H PRN PRN (Reason: Nausea) RF: 0 tramadol 50 mg tablet 50 mg PO DAILY@1200,1600,2000 RF: 0 tramadol 50 mg tablet 100 mg PO DAILY@0800 RF: 0 atorvastatin 40 mg tablet 40 mg PO QHS Qty: 30 RF: 0 gabapentin 300 mg capsule 600 mg PO TID RF: 0 rabeprazole [AcipHex] 20 mg Tablet,Delayed Release (Dr/Ec) 20 mg PO DAILY RF: 0 artificial tears solution Drops 1 drp OPHTHALMIC (EYE) PRN PRN (Reason: Dry Eye(S)) RF: 0 meclizine 25 mg Capsule 25 mg PO Q6H PRN PRN (Reason: Dizziness) RF: 0 acetaminophen [Acetaminophen Extra Strength] 500 mg Tablet 1,000 mg PO Q6H PRN (Reason: Pain) RF: 0 ferrous sulfate 325 mg (65 mg iron) Tablet 325 mg PO BID RF: 0 Mucinex DM 30-600 mg Tablet Extended Release 12 Hr 1 tab PO Q12H RF: 0 psyllium husk [Metamucil] 0.52 gram Capsule 0.52 g PO BID RF: 0 adalid (Zingiber officinalis) 550 mg Capsule 550 mg PO DAILY RF: 0 levothyroxine 112 mcg tablet 112 mcg PO DAILY RF: 0 clopidogrel [Plavix] 75 mg Tablet 75 mg PO DAILY RF: 0 Discontinued doxycycline hyclate 100 mg capsule 100 mg PO BID 10 Days Qty: 20 RF: 0 Referrals / Follow Up: Alex Self MD [Primary Care Provider] - Within 2 Weeks Disposition Disposition (needs filled in before D/C Order can be placed): Home, Self Care Documented by User: Dr. Corey Salcido MD 02/16/22 15:37 Providers Date of Admission: 02/15/22 Reason For Visit: R SIDED TONGUE NUMBNESS/DYSARTHRIA Medications at Discharge Home Medications fluticasone propionate 2 spray NASAL DAILY 01/03/16 tizanidine 4 mg PO 4X/DAY 01/03/16 aspirin 81 mg chewable tablet 81 mg PO DAILY 12/16/17 lisinopril 5 mg PO DAILY 10/21/18 multivitamin 1 ea PO DAILY 12/02/18 lorazepam 0.5 mg PO TID 06/22/19 polyethylene glycol 3350 17 g PO DAILY 06/22/19 albuterol sulfate 2 puff INHALATION Q6H PRN PRN 04/16/20 alum-mag hydroxide-simeth 20 ml PO Q8 PRN 04/16/20 diclofenac sodium 1 applic TOPICAL Q6H PRN PRN 04/16/20 hydrocortisone-aloe vera 1 applic TOPICAL Q8H PRN PRN 04/16/20 potassium chloride 10 mEq tablet,extended release 10 meq PO DAILY 12/02/20 cyanocobalamin (vitamin B-12) 1,000 mcg IM Q30D 01/07/21 promethazine 25 mg PO Q6H PRN PRN 01/07/21 tramadol 50 mg PO DAILY@1200,1600,2000 03/24/21 tramadol 100 mg PO DAILY@0800 03/24/21 atorvastatin 40 mg PO QHS #30 tab 03/25/21 Mucinex DM 1 tab PO Q12H 09/18/21 acetaminophen [Acetaminophen Extra Strength] 1,000 mg PO Q6H PRN 09/18/21 artificial tears solution 1 drp OPHTHALMIC (EYE) PRN PRN 09/18/21 ferrous sulfate 325 mg PO BID 09/18/21 adalid (Zingiber officinalis) 550 mg PO DAILY 09/18/21 levothyroxine 112 mcg PO DAILY 09/18/21 meclizine 25 mg PO Q6H PRN PRN 09/18/21 psyllium husk [Metamucil] 0.52 g PO BID 09/18/21 rabeprazole [AcipHex] 20 mg PO DAILY 09/18/21 gabapentin 300 mg capsule 600 mg PO TID cap 01/14/22 lamotrigine 200 mg tablet 200 mg PO BID 01/14/22 clopidogrel [Plavix] 75 mg PO DAILY 02/15/22 Hospital Course Operations None Summary of Care Provided Minutes Spent on Discharge: 35 Hospital Course: This patient was seen in conjunction with Rod Cm PA-C. I have independently interviewed and examined the patient and reviewed pertinent historical, laboratory, and other data. Please refer to Rod Cm PA-C's note for details of this patient's presentation, findings, and recommendations. I have reviewed Rod Cm PA-C's note and concur with documented findings. In brief, patient is a 67-year-old lady with multiple comorbidities including bipolar disorder hypertension dyslipidemia previous history of CVA who presented with focal tongue numbness admitted to a monitored bed for subsequent evaluation Physical Examination: GENERAL: cooperative HEENT: Atraumatic; EYES; Anicteric, Normal Conjunctiva NECK; supple, normal thyroid, RESPIRATORY: Diminished to auscultation CARDIOVASCULAR: Regular S1 S2, GI: soft, normoactive bowel sounds, SKIN: No Rash PSYCH; Flat affect Assessment: 1. Suspected TIA 2. Carotid artery disease 3. Bipolar disorder 4. GERD 5. Essential hypertension 6. Dyslipidemia 7. Hypothyroidism 8. Irritable bowel syndrome 9. Schizoaffective disorder Hospital course As documented above Total time spent by myself and the advanced practice practitioner evaluating patient, reviewing labs, subsequent management decisions, discussion with joe ent as well as other providers 35 minutes ( 20 of which was spent by myself) ABG / Lab / Microbiology Data Result Diagrams: 02/16/22 05:55 02/16/22 05:55 Discharge Plan Admission Admit Date/Time: 02/15/22 14:17 Primary Reason for Your Visit: Tongue numbness Attending Provider: Corey Salcido Primary Care Provider: Alex Self Consulting Providers: Augustine Curtis Instructions Additional Instructions / Restrictions: * Proceed to your scheduled Neurology appointment on 02/17. Discharge Orders/Prescriptions Prescriptions: Continued aspirin 81 mg tablet,chewable 81 mg PO DAILY RF: 0 potassium chloride 10 mEq tablet extended release 10 meq PO DAILY RF: 0 lamotrigine 200 mg tablet 200 mg PO BID RF: 0 tizanidine 4 MG tablet 4 mg PO 4X/DAY RF: 0 fluticasone propionate 1 SPRAY spray,suspension 2 spray NASAL DAILY RF: 0 lisinopril 5 MG tablet 5 mg PO DAILY RF: 0 multivitamin 1 EACH tablet 1 ea PO DAILY RF: 0 polyethylene glycol 3350 17 GM packet 17 g PO DAILY RF: 0 lorazepam 0.5 MG tablet 0.5 mg PO TID RF: 0 hydrocortisone-aloe vera 1 APPLIC cream 1 applic topical Q8H PRN PRN (Reason: Itching) RF: 0 albuterol sulfate 1 INHALER inhaler 2 puff inhalation Q6H PRN PRN (Reason: Sob &/Or Wheezing) RF: 0 alum-mag hydroxide-simeth 30 ML suspension 20 ml PO Q8 PRN (Reason: Constipation) RF: 0 diclofenac sodium 1 APPLIC gel 1 applic topical Q6H PRN PRN (Reason: Pain) RF: 0 cyanocobalamin (vitamin B-12) 1,000 MCG/ML solution 1,000 mcg IM Q30D RF: 0 promethazine 25 MG tablet 25 mg PO Q6H PRN PRN (Reason: Nausea) RF: 0 tramadol 50 mg tablet 50 mg PO DAILY@1200,1600,2000 RF: 0 tramadol 50 mg tablet 100 mg PO DAILY@0800 RF: 0 atorvastatin 40 mg tablet 40 mg PO QHS Qty: 30 RF: 0 gabapentin 300 mg capsule 600 mg PO TID RF: 0 rabeprazole [AcipHex] 20 mg Tablet,Delayed Release (Dr/Ec) 20 mg PO DAILY RF: 0 artificial tears solution Drops 1 drp OPHTHALMIC (EYE) PRN PRN (Reason: Dry Eye(S)) RF: 0 meclizine 25 mg Capsule 25 mg PO Q6H PRN PRN (Reason: Dizziness) RF: 0 acetaminophen [Acetaminophen Extra Strength] 500 mg Tablet 1,000 mg PO Q6H PRN (Reason: Pain) RF: 0 ferrous sulfate 325 mg (65 mg iron) Tablet 325 mg PO BID RF: 0 Mucinex DM 30-600 mg Tablet Extended Release 12 Hr 1 tab PO Q12H RF: 0 psyllium husk [Metamucil] 0.52 gram Capsule 0.52 g PO BID RF: 0 adalid (Zingiber officinalis) 550 mg Capsule 550 mg PO DAILY RF: 0 levothyroxine 112 mcg tablet 112 mcg PO DAILY RF: 0 clopidogrel [Plavix] 75 mg Tablet 75 mg PO DAILY RF: 0 Discontinued doxycycline hyclate 100 mg capsule 100 mg PO BID 10 Days Qty: 20 RF: 0 Referrals / Follow Up: Alex Self MD [Primary Care Provider] - Within 2 Weeks Disposition Disposition (needs filled in before D/C Order can be placed): Home, Self Care Charges/Coding Visit Charges OBSV E&M: 24106 Observation care discharge Hospital Course Imaging Results Imaging Results: 02/16/22 09:00 Brain without Contrast [MRI] Stat 02/16/22 12:43 Lumbar Spine 2 or 3 Views [RAD] Urgent Consultations Consultations: Consultations 02/16/22 09:57 Consult: Vascular Surgery Routine Consulting Provider: Augustine Curtis Reason for Consult: Severe (80%) left carotid stenosis seen on Head/Neck CT- A. EMERGENT Consult: No MD Notified: Yes Date Notified: 02/16/22 Time Notified: 09:58 Method of Notification: Verbal Operations None
--- NOTE | 2022-02-16 15:17 | PCM.PN.BLA ---
Progress Note Please refer to consult note initiated by Sharonda Ríos PA-C On my personal review of the patient's CTA of the carotids I do not detect a greater than 80% stenosis of the left internal carotid. There is calcific plaque with shadowing present. This would correlate nicely with the patient's neck MRA of March 25, 2021 which suggested 40% stenosis of the right internal carotid and no significant stenosis of the left internal carotid Carotid duplex imaging has just been accomplished. This demonstrates less than 50% stenosis of bilateral internal carotids. My interpretation then is a incorrect CTA report with no hemodynamically significant carotid stenosis present Augustine Curtis M.D., F.A.C.S..
--- NOTE | 2022-02-16 15:23 | PHA.DC.MR ---
Pharmacy Service has performed discharge medication reconciliation for this patient. The patient's discharge medication list was reviewed for discrepancies and discrepancies were resolved. Home Medications fluticasone propionate 2 spray NASAL DAILY 01/03/16 tizanidine 4 mg PO 4X/DAY 01/03/16 aspirin 81 mg chewable tablet 81 mg PO DAILY 12/16/17 lisinopril 5 mg PO DAILY 10/21/18 multivitamin 1 ea PO DAILY 12/02/18 lorazepam 0.5 mg PO TID 06/22/19 polyethylene glycol 3350 17 g PO DAILY 06/22/19 albuterol sulfate 2 puff INHALATION Q6H PRN PRN 04/16/20 alum-mag hydroxide-simeth 20 ml PO Q8 PRN 04/16/20 diclofenac sodium 1 applic TOPICAL Q6H PRN PRN 04/16/20 hydrocortisone-aloe vera 1 applic TOPICAL Q8H PRN PRN 04/16/20 potassium chloride 10 mEq tablet,extended release 10 meq PO DAILY 12/02/20 cyanocobalamin (vitamin B-12) 1,000 mcg IM Q30D 01/07/21 promethazine 25 mg PO Q6H PRN PRN 01/07/21 tramadol 50 mg PO DAILY@1200,1600,2000 03/24/21 tramadol 100 mg PO DAILY@0800 03/24/21 atorvastatin 40 mg PO QHS #30 tab 03/25/21 Mucinex DM 1 tab PO Q12H 09/18/21 acetaminophen [Acetaminophen Extra Strength] 1,000 mg PO Q6H PRN 09/18/21 artificial tears solution 1 drp OPHTHALMIC (EYE) PRN PRN 09/18/21 ferrous sulfate 325 mg PO BID 09/18/21 adalid (Zingiber officinalis) 550 mg PO DAILY 09/18/21 levothyroxine 112 mcg PO DAILY 09/18/21 meclizine 25 mg PO Q6H PRN PRN 09/18/21 psyllium husk [Metamucil] 0.52 g PO BID 09/18/21 rabeprazole [AcipHex] 20 mg PO DAILY 09/18/21 gabapentin 300 mg capsule 600 mg PO TID cap 01/14/22 lamotrigine 200 mg tablet 200 mg PO BID 01/14/22 clopidogrel [Plavix] 75 mg PO DAILY 02/15/22
--- NOTE | 2022-02-16 15:24 | CHAPLAIN ---
Type of Pastoral Visit _x__ Initial Visit ___ Follow-up Visit ___ On-call Visit ___ General Patient Visit ___ Spiritual Assessment ___ Family Conference ___ Bereavement ___ Rapid Response ___ Code Blue ___ Other (describe below) Pastoral Care Referral From _x__ Patient ___ Family ___ Nurse ___ Physician ___ Jewel Hole Rough Opener ___ Jointer Machine Operator ___ Other (describe below) Sacrament/Intervention _x__ Active listening ___ Anointing ___ Oriental Orthodox ___ Bereavement ___ Communion ___ Patricia exploration ___ _x__ Life review ___ Prayer ___ Reconciliation ___ Sacrament of Sick _x__ Supportive presence ___ Wedding ___ Other (describe below) Pastoral Comments patient is welcoming and wonders if the educational director is coming; pt has been seen in previous admissions and remembers this bleacher operator; pt states her manic state for last six months and is very talkative throughout the visit; phone call comes in for pt and the visit ends
--- NOTE | 2022-02-16 16:01 | CASEMGMT ---
BRYCE faxed d/c instructions to [facility]. [phone]. Patient has transportation. 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
== END 2022-02-16 13:13 | disposition home or self-care (01) ==
LOC: ED 11:42 → PCU 14:36
PROVIDERS: Admitting Provider Internal Medicine; Emergency Provider Student in an Organized Health Care Education/Training Program; PCP Family Medicine; Visit Provider Internal Medicine
DX: R20.0 Anesthesia of skin (principal); F25.9 Schizoaffective disorder, unspecified; G80.9 Cerebral palsy, unspecified; F31.9 Bipolar disorder, unspecified; G40.909 Epilepsy, unspecified, not intractable, without status epilepticus; I65.23 Occlusion and stenosis of bilateral carotid arteries; I10 Essential (primary) hypertension; M79.7 Fibromyalgia; K21.9 Gastro-esophageal reflux disease without esophagitis; F41.9 Anxiety disorder, unspecified; Z86.73 Personal history of transient ischemic attack (TIA), and cerebral infarction without residual deficits; K58.9 Irritable bowel syndrome, unspecified; E03.9 Hypothyroidism, unspecified; E78.5 Hyperlipidemia, unspecified; R47.1 Dysarthria and anarthria; G62.9 Polyneuropathy, unspecified; R01.1 Cardiac murmur, unspecified; R47.81 Slurred speech; Z79.82 Long term (current) use of aspirin; R20.2 Paresthesia of skin; Z79.51 Long term (current) use of inhaled steroids; Z79.899 Other long term (current) drug therapy; Z79.02 Long term (current) use of antithrombotics/antiplatelets
CPT/HCPCS: 36415; 70450; 70496; 70498; 70551; 71045; 72100; 80048; 80053; 80061; 80076; 83036; 83735; 84100; 84443; 84484; 85025; 93005; 93306; 93880; 94762; 96372; 96374; 97162; 97166; 99218; 99251; 99285; 99406; Q9967; A4216; G0378; G0463

== ENCOUNTER → 2022-04-01 | Outpatient (REF) | payer SELFPAY ==
[2022-04-01 19:18] LABS: Hematocrit 37.5 % (37-47); Hemoglobin 12.2 g/dL (12.0-15.0); Mean Corp Hgb Conc 32.5 g/dL (32-36); Mean Corpuscular Hgb 32.9 pg (27.0-32.0); Mean Corpuscular Volume 101.1 fL (81-99); Platelet Count 251 K/mm3 (150-450); RBC Distribution Width CV 12.2 % (11.6-14.6); RBC Distribution Width SD 45.6 fl (35.1-43.9); Red Blood Count 3.71 M/mm3 (4.2-5.4); White Blood Count 5.5 K/mm3 (4.4-11.0)
[2022-04-01 19:54] LABS: Anion Gap 6 (5-15); BUN 8 mg/dL (7-18); BUN/Creat Ratio 8.1 RATIO (10-20); Calcium,Total 9.1 mg/dL (8.5-10.1); Chloride 105 mmol/L (98-107); Creatinine, Serum 0.99 mg/dL (0.55-1.02); EST Glomerular Filtration Rate 60 mL/min (>60); Est Glom Filt Rate - Afr Amer 72 mL/min (>60); Glucose 100 mg/dL (74-106); Potassium 3.7 mmol/L (3.5-5.1); Sodium Level 139 mmol/L (136-145)
== END | disposition home or self-care (01) ==
LOC: OLS.ACH 18:00
PROVIDERS: PCP Family Medicine; Referring Provider Family Medicine; Visit Provider Family Medicine
DX: I10 Essential (primary) hypertension (principal); R29.6 Repeated falls; R03.1 Nonspecific low blood-pressure reading
CPT/HCPCS: 36415; 80048; 85027

== ENCOUNTER 2022-04-16 13:20 | Emergency (ER) | payer MEDICARE, MEDICAID, SELFPAY ==
[2022-04-16 13:21] VITALS: BP 126/74; PULSE 76; RESP 18; TEMP 36.2; O2SAT 95; BMI 35.7
[2022-04-16 13:25] VITALS: BP 126/74; PULSE 76; RESP 18; TEMP 36.2; O2SAT 95
[2022-04-16 13:49] LABS: Absolute Lymphocyte Count 0.79 X10^3/uL (0.83-4.51); Absolute Neutrophil Count 2.5 X10^3/uL (2.0-7.7); Basophil# 0.02 X10^3/uL; Basophil% 0.5 % (0-1); Eosinophil# 0.05 X10^3/uL; Eosinophils% 1.2 % (0-5); Hematocrit 33.7 % (37-47); Lymphocyte # 0.79 X10^3/ul (0.83-4.51); Mean Corp Hgb Conc 32.6 g/dL (32-36); Mean Corpuscular Hgb 33.1 pg (27.0-32.0); Mean Corpuscular Volume 101.5 fL (81-99); Mean Platelet Vol. 9.4 fl (6.2-12.0); Monocyte# 0.74 X10^3/uL; Monocyte% 17.8 % (0-10); NRBC Flagged by Analyzer 0 % (0-5); Neutrophil # 2.54 X10^3/uL (2.7-7.7); Neutrophil % 61.3 % (47-70); Platelet Count 171 K/mm3 (150-450); RBC Distribution Width CV 12.2 % (11.6-14.6); RBC Distribution Width SD 45.3 fl (35.1-43.9); Red Blood Count 3.32 M/mm3 (4.2-5.4); White Blood Count 4.2 K/mm3 (4.4-11.0)
[2022-04-16 14:00] LABS: Anion Gap 2 (5-15); BUN 6 mg/dL (7-18); BUN/Creat Ratio 6.7 RATIO (10-20); Calcium,Total 8.7 mg/dL (8.5-10.1); Chloride 110 mmol/L (98-107); Creatinine, Serum 0.89 mg/dL (0.55-1.02); EST Glomerular Filtration Rate 67 mL/min (>60); Est Glom Filt Rate - Afr Amer 81 mL/min (>60); Estimated Creatinine Clearance 52.13 ml/min; Glucose 104 mg/dL (74-106); Sodium Level 143 mmol/L (136-145)
--- NOTE | 2022-04-16 14:00 | RAD_ITS ---
STUDY: X-RAY CHEST REASON FOR EXAM: 67-year-old female patient with history of cough and weakness., TECHNIQUE: Single AP portable view of the chest. COMPARISON: Comparison is made with prior study dated 02/15/2022. FINDINGS: EKG electrodes are seen. Scattered calcified granulomas. There is no demonstrated pleural abnormality. Normal size heart. Normal mediastinum and cathy. Normal visualized pulmonary arteries. There is atherosclerotic calcification of the aortic arch with tortuosity. There are diffuse degenerative changes of the visualized thoracic spine. There is degenerative osteoarthritis of the bilateral shoulders. Hiatal hernia. RAD/Chest 1 View (Portable) IMPRESSION: No acute abnormality is seen. Electronically Signed: Guerrero Hooper MD at 15:15 EDT ,
--- NOTE | 2022-04-16 15:06 | EX.ED.DYSGE1 ---
HPI History of Present Illness Chief Complaint: Weakness Informant: patient Narrative Narrative: 67-year-old female brought to the emergency room via EMS. Patient was at a [facility] and states that beginning on Wednesday she started having difficulty moving her bilateral legs. She also developed a cough. She saw primary care yesterday and was told she had bronchitis and started on azithromycin. She has a history of asthma states that she was also started on Advair. She does have a rescue inhaler. Patient states that today her legs locked up and she had to pull herself at the counter and when they put her on the chair her legs were still in a locked position. She states that she felt her face was drooping and she felt she had slurred speech. She was seen last night at [facility] and was told that she was hypokalemic. [facility] Medical History Anemia Anxiety Asthma Bipolar 1 disorder Cerebral palsy Falls Fibromyalgia GERD (gastroesophageal reflux disease) HBP (high blood pressure) Hypercholesteremia Hyperlipidemia Hypertension Hypothyroid Irritable bowel Kyphosis Migraine Peripheral vascular disease Schizoaffective disorder Home Medications fluticasone propionate 50 mcg/actuation nasal spray,suspension 2 spray NASAL DAILY congestion 01/03/16 [History Last Taken 03/24/21] tizanidine 4 mg tablet 4 mg PO 4X/DAY muscle relaxer 01/03/16 [History Last Taken 03/24/21] aspirin 81 mg chewable tablet 81 mg PO DAILY heart health 12/16/17 [History Last Taken 03/24/21] lisinopril 5 mg tablet 5 mg PO DAILY bp 10/21/18 [History Last Taken 03/24/21] multivitamin 1 ea PO DAILY supplement 12/02/18 [History Last Taken 03/24/21] lorazepam 0.5 mg tablet 0.5 mg PO TID anxiety 06/22/19 [History Last Taken 03/24/21] polyethylene glycol 3350 17 gram oral powder packet 17 g PO DAILY 06/22/19 [History Last Taken 03/22/21] albuterol sulfate 90 mcg/actuation aerosol inhaler 2 puff inhalation Q6H PRN PRN Sob &/Or Wheezing 04/16/20 [History Last Taken 11/05/20] aluminum-mag hydroxide-simethicone 400 mg-400 mg-40 mg/5 mL oral susp 20 ml PO Q8 PRN Constipation 04/16/20 [History Last Taken 03/24/21] diclofenac sodium 1 % topical gel 1 applic topical Q6H PRN PRN Pain 04/16/20 [History Last Taken 03/24/21] hydrocortisone-aloe vera 1 % topical cream 1 applic topical Q8H PRN PRN Itching 04/16/20 [History Last Taken 03/22/21] potassium chloride 10 mEq tablet,extended release 10 meq PO DAILY supplement 12/02/20 [History Last Taken 03/24/21] cyanocobalamin (vitamin B-12) 1,000 mcg/mL injection solution 1,000 mcg IM Q30D supplement 01/07/21 [History Last Taken 03/17/21] promethazine 25 mg tablet 25 mg PO Q6H PRN PRN Nausea 01/07/21 [History Last Taken 03/23/21] tramadol 50 mg tablet 50 mg PO DAILY@1200,1600,2000 pain 03/24/21 [History Last Taken 03/24/21] tramadol 50 mg tablet 100 mg PO DAILY@0800 pain 03/24/21 [History Last Taken 03/24/21] atorvastatin 40 mg tablet 40 mg PO QHS #30 tabs 03/25/21 [Rx Last Taken Unknown] acetaminophen 500 mg tablet (Acetaminophen Extra Strength) 1,000 mg PO Q6H PRN Pain 09/18/21 [History Last Taken Unknown] artificial tears solution eye drops 1 drp ophthalmic (eye) PRN PRN Dry Eye(S) 09/18/21 [History Last Taken Unknown] dextromethorphan-guaifenesin 30 mg-600 mg tablet extended [id number] hr (Mucinex DM) 1 tab PO Q12H 09/18/21 [History Last Taken Unknown] ferrous sulfate 325 mg (65 mg iron) tablet 325 mg PO BID 09/18/21 [History Last Taken Unknown] adalid (Zingiber officinalis) 550 mg capsule 550 mg PO DAILY 09/18/21 [History Last Taken Unknown] levothyroxine 112 mcg tablet 112 mcg PO DAILY 09/18/21 [History Last Taken Unknown] meclizine 25 mg capsule 25 mg PO Q6H PRN PRN Dizziness 09/18/21 [History Last Taken Unknown] psyllium husk 0.52 gram capsule (Metamucil) 0.52 g PO BID 09/18/21 [History Last Taken Unknown] rabeprazole 20 mg tablet,delayed release (AcipHex) 20 mg PO DAILY 09/18/21 [History Last Taken Unknown] gabapentin 300 mg capsule 600 mg PO TID nerve pain 01/14/22 [History Last Taken Unknown] lamotrigine 200 mg tablet 200 mg PO BID 01/14/22 [History Last Taken Unknown] clopidogrel 75 mg tablet (Plavix) 75 mg PO DAILY 02/15/22 [History Last Taken Unknown] prednisone 20 mg tablet 60 mg PO DAILY #15 TABLETS 04/16/22 [Rx Last Taken Unknown] Allergy/AdvReac Type Severity Reaction Status Date / Time lithium Allergy Mild Vomiting Verified 04/16/22 13:32 aspartame Allergy Itching Verified 04/16/22 13:32 carrot Allergy Food Verified 04/16/22 13:32 Allergy ciclesonide [From [place]ves[place]] Allergy Shortness Verified 04/16/22 13:32 of breath diphenhydramine Allergy Other Verified 04/16/22 13:32 [From Benadryl] diphenhydramine HCl Allergy Rash Verified 04/16/22 13:32 [From Benadryl] imipramine Allergy Other Verified 04/16/22 13:32 levofloxacin [From Levaquin] Allergy Itching Verified 04/16/22 13:32 onabotulinumtoxinA Allergy Itching Verified 04/16/22 13:32 [From Botox] Penicillins Allergy Rash Verified 04/16/22 13:32 Sulfa (Sulfonamide Allergy NEEDS Verified 04/16/22 13:32 Antibiotics) FOLLOW-UP topiramate [From Topamax] Allergy Other Verified 04/16/22 13:32 baclofen AdvReac Severe vomitting Verified 04/16/22 13:32 erythromycin base AdvReac Severe chest pain Verified 04/16/22 13:32 fentanyl AdvReac Severe Vomiting Verified 04/16/22 13:32 lubiprostone [From Amitiza] AdvReac Severe Vomiting Verified 04/16/22 13:32 ondansetron [From Zofran] AdvReac Severe Vomiting Verified 04/16/22 13:32 oxycodone AdvReac Severe vomitting Verified 04/16/22 13:32 oxymorphone AdvReac Severe ABD pain Verified 04/16/22 13:32 and vomiting pregabalin [From Lyrica] AdvReac Severe eyes would Verified 04/16/22 13:32 stay closed codeine AdvReac nausea Verified 04/16/22 13:32 sertraline [From Zoloft] AdvReac serotoin Verified 04/16/22 13:32 syndrome environmental Allergy Other Uncoded 04/16/22 13:32 Family History Sister CVA (cerebral vascular accident) Afib Heart disease Liver disease Brother Colon cancer Father Emphysema lung Surgical History History of total left knee replacement History of total right knee replacement Social History adopted: No housing: assisted living facility current occupational status: disabled pets and animals: No Smoking Status: Never smoker alcohol intake: never substance use type: does not use ROS ROS ED Constitutional Constitutional ED: Denies chills or weight loss Eyes Eyes: Denies change in vision or diplopia ENT ENT ED: Denies ear pain, rhinorrhea or sore throat Cardiovascular Cardiovascular: Denies chest pain, orthopnea, palpitations or racing heartbeat Respiratory/Chest Respiratory/Chest: Reports cough and dyspnea; Denies orthopnea Gastrointestinal Gastrointestinal: Denies abdominal pain, diarrhea, nausea or vomiting Genitourinary Genitourinary ED: Denies dysuria, hematuria or urinary frequency Musculoskeletal Musculoskeletal: Denies arthralgias or myalgias Integumentary Denies abscess or rash Neurologic Neurologic: Reports weakness; Denies headache(s) Psychiatric Psychiatric: Denies anxiety, depression, suicidal ideation or suicidal thoughts Endocrine Endocrinology: Denies polydipsia, polyphagia or polyuria Allergic/Immunologic Allergic/Immunologic ED: Denies mouth swelling, tongue swelling or urticaria EXAM Physical Exam Narrative Exam Narrative: Patient is speaking in full sentences. Const Vital Signs: 04/16/22 13:21 04/16/22 13:25 04/16/22 13:27 Temperature 97.2 F L 97.2 F L Temperature Source Temporal Temporal Pulse Rate 76 76 Respiratory Rate 18 18 Respiratory Pattern Normal Blood Pressure 126/74 H 126/74 H Blood Pressure Mean 91 91 Pulse Ox 95 95 Oxygen Delivery Method Room Air Room Air 04/16/22 15:13 Temperature Temperature Source Pulse Rate 85 Respiratory Rate 27 H Respiratory Pattern Blood Pressure 167/100 H Blood Pressure Mean 122 Pulse Ox 94 Oxygen Delivery Method Room Air Positive well nourished and well developed General Appearance ED: well developed HEENT Reports normocephalic, head/scalp atraumatic and moist mucous membranes Eyes PERRL and EOMs intact bilaterally Neck no lymphadenopathy, supple and no JVD Resp normal respiratory effort Auscultation: rhonchi and wheezes expiratory wheezes (Light expiratory wheezes throughout) Cardio regular rate, regular rhythm and no murmurs GI normal to inspection, nondistended, normoactive bowel sounds and non-tender Palpation: soft Back/Spine no CVA tenderness and normal ROM Extremity normal to inspection General Extremety ED: Negative for edema General Extremity: Negative for edema Neuro oriented x3 and CN's II-XII intact bilaterally Sensorium / Orientation: alert Motor Exam: strength 5/5 throughout; Negative for general weakness Psych mental status grossly normal Mood & Affect: Negative for depressed or tearful Skin no rashes or lesions noted and no wounds MDM MDM MDM Narrative Medical decision making narrative: My interpretation of the chest x-ray is no acute process. White count is 4.2 hemoglobin is 11 platelet count of 171. BMP is normal. I do not think this is TIA as it was bilateral leg stiffness. I checked a COVID and influenza test given the leukopenia both these were negative. We will place her on prednisone with her history of asthma and now with bronchitis with some expiratory wheeze. Would encourage her to use your inhaler at least every 4 hours. On her follow-up with primary care in about a week Lab Data Attestation: I reviewed the patient's lab results. Labs: Laboratory Results - last 24 hr 04/16/22 04/16/22 13:25 13:25 WBC 4.2 L RBC 3.32 L Hgb 11.0 L Hct 33.7 L MCV 101.5 H MCH 33.1 H MCHC 32.6 RDW Std Deviation 45.3 H RDW Coeff of Lindsey 12.2 Plt Count 171 MPV 9.4 Immature Gran % (Auto) 0.200 Neut % (Auto) 61.3 Lymph % (Auto) 19.0 [place] % (Auto) 17.8 H Eos % (Auto) 1.2 Baso % (Auto) 0.5 Absolute Neuts (auto) 2.5 Absolute Lymphs (auto) 0.79 L Nucleated RBC % 0 Sodium 143 Potassium 4.0 Chloride 110 H Carbon Dioxide 31.0 Anion Gap 2 L BUN 6 L Creatinine 0.89 Estim Creat Clear Calc 52.13 Est GFR (MDRD) Af Amer 81 Est GFR (MDRD) Non-Af 67 BUN/Creatinine Ratio 6.7 L Glucose 104 Calcium 8.7 Radiography Diagnostic Testing: Clinical Impression(s) from Imaging Studies Chest X-Ray 04/16/22 14:00 IMPRESSION: No acute abnormality is seen. Electronically Signed: Guerrero Hooper MD at 15:15 EDT , Discharge Plan Triage Chief Complaint: Weakness ED Provider: Adarsh Cunningham Dx/Rx/DC Orders Clinical Impression: Acute bronchitis with bronchospasm, Asthma, Bilateral leg weakness Instructions: ED Bronchitis with Wheezing (Adult), ED Weakness (Uncertain Cause) Prescriptions: New prednisone 20 MG tablet 60 mg PO DAILY Qty: 15 0RF No Action aspirin 81 mg tablet,chewable 81 mg PO DAILY potassium chloride 10 mEq tablet extended release 10 meq PO DAILY lamotrigine 200 mg tablet 200 mg PO BID tizanidine 4 MG tablet 4 mg PO 4X/DAY fluticasone propionate 1 SPRAY spray,suspension 2 spray NASAL DAILY lisinopril 5 MG tablet 5 mg PO DAILY Label Comments: TAKE ONE TABLET BY MOUTH EVERY DAY multivitamin 1 EACH tablet 1 ea PO DAILY polyethylene glycol 3350 17 GM packet 17 g PO DAILY lorazepam 0.5 MG tablet 0.5 mg PO TID hydrocortisone-aloe vera 1 APPLIC cream 1 applic topical Q8H PRN PRN (Reason: Itching) albuterol sulfate 1 INHALER inhaler 2 puff inhalation Q6H PRN PRN (Reason: Sob &/Or Wheezing) alum-mag hydroxide-simeth 30 ML suspension 20 ml PO Q8 PRN (Reason: Constipation) diclofenac sodium 1 APPLIC gel 1 applic topical Q6H PRN PRN (Reason: Pain) cyanocobalamin (vitamin B-12) 1,000 MCG/ML solution 1,000 mcg IM Q30D promethazine 25 MG tablet 25 mg PO Q6H PRN PRN (Reason: Nausea) tramadol 50 mg tablet 50 mg PO DAILY@1200,1600,2000 tramadol 50 mg tablet 100 mg PO DAILY@0800 atorvastatin 40 mg tablet 40 mg PO QHS Qty: 30 0RF gabapentin 300 mg capsule 600 mg PO TID rabeprazole [AcipHex] 20 mg Tablet,Delayed Release (Dr/Ec) 20 mg PO DAILY artificial tears solution Drops 1 drp OPHTHALMIC (EYE) PRN PRN (Reason: Dry Eye(S)) meclizine 25 mg Capsule 25 mg PO Q6H PRN PRN (Reason: Dizziness) acetaminophen [Acetaminophen Extra Strength] 500 mg Tablet 1,000 mg PO Q6H PRN (Reason: Pain) ferrous sulfate 325 mg (65 mg iron) Tablet 325 mg PO BID Mucinex DM 30-600 mg Tablet Extended Release 12 Hr 1 tab PO Q12H psyllium husk [Metamucil] 0.52 gram Capsule 0.52 g PO BID adalid (Zingiber officinalis) 550 mg Capsule 550 mg PO DAILY levothyroxine 112 mcg tablet 112 mcg PO DAILY Rx Instructions: 112 mcg PO one daily 1.5 every Wednesday; clopidogrel [Plavix] 75 mg Tablet 75 mg PO DAILY Primary Care Provider: Alex Self Referrals: Alex Self MD [Primary Care Provider] - 1 Week Activity Restrictions/Additional Instructions: Use your inhaler 2 puffs at least every 4 hours for the next week Disposition Disposition: Home, Self Care
[2022-04-16 15:13] VITALS: BP 167/100; PULSE 85; RESP 27; O2SAT 94
== END 2022-04-16 15:59 | disposition home or self-care (01) ==
PROVIDERS: Emergency Provider Emergency Medicine; PCP Family Medicine; Visit Provider Emergency Medicine
DX: J20.9 Acute bronchitis, unspecified (principal); G80.9 Cerebral palsy, unspecified; F31.9 Bipolar disorder, unspecified; J45.909 Unspecified asthma, uncomplicated; M62.81 Muscle weakness (generalized); I10 Essential (primary) hypertension; E78.00 Pure hypercholesterolemia, unspecified; E03.9 Hypothyroidism, unspecified; E78.5 Hyperlipidemia, unspecified; M79.7 Fibromyalgia; F41.9 Anxiety disorder, unspecified; R29.6 Repeated falls; Z79.02 Long term (current) use of antithrombotics/antiplatelets; Z79.82 Long term (current) use of aspirin; Z79.899 Other long term (current) drug therapy
CPT/HCPCS: 71045; 80048; 85025; 87428; A4216

== ENCOUNTER 2022-04-16 22:51 | Emergency (ER) | payer MEDICARE, MEDICAID, SELFPAY ==
[2022-04-16 22:52] VITALS: RESP 18; TEMP 36.1; BMI 34.4
[2022-04-16 22:57] VITALS: BP 150/123; PULSE 69; RESP 20; O2SAT 98
--- NOTE | 2022-04-16 23:08 | CT_ITS ---
EXAM: CT HEAD WITHOUT INTRAVENOUS CONTRAST CLINICAL INDICATION: vertigo TECHNIQUE: Multiple axial images were obtained of the head without intravenous contrast. This CT exam was performed using one or more of the following dose reduction techniques: automated exposure control, adjustment of the mA and/or kV according to patient size, and/or use of iterative reconstruction technique. This report was created using [employer] report generation technology. RADIATION DOSE: CTDIvol = 44.99 mGy, DLP = 846.73 mGy-cm COMPARISON: February 15, 2022. FINDINGS: BRAIN AND EXTRA-AXIAL SPACES: Stable appearance of mild low-attenuation deep periventricular chronic white matter change and mild cerebral volume loss. Small hypodensities in the centrum semiovale are also stable. No intra- or extra-axial hemorrhage. No evidence of acute infarct. No intracranial mass or mass effect. There is preservation of the wilkins/white matter interface. Posterior fossa structures are unremarkable. No hydrocephalus. Basal cisterns are patent. BONES/JOINTS: Unremarkable. No discrete lytic or blastic abnormalities. VASCULATURE: Mild cavernous carotid calcifications. SINUSES: Minimal mucosal thickening in the ethmoid sinuses. MASTOID AIR CELLS: Unremarkable. Clear. ORBITS: Visualized globes, extraocular muscles, optic nerves and retrobulbar fat appear unremarkable. CT/Brain/Head without Contrast IMPRESSION: Stable chronic changes. No acute intracranial abnormality identified. Electronically Signed: Rekha Gonzalez MD at 0:17 EDT ,
--- NOTE | 2022-04-16 23:09 | EX.ED.DYSGE1 ---
HPI History of Present Illness Chief Complaint: Weakness Informant: patient and EMS Onset/Context/Timing Onset: Today Context: Sudden Onset Timing: Continuous and Waxes and wanes Quality: dizzy like room spinning Location: head Current Severity: Mild Maximum Severity: Severe Worsened by: moving head, changing position Relieved by: remaining still Associated Symptoms Associated Symptoms: n/v Narrative Narrative: Patient was here earlier. She went back to assisted and went to the bathroom, turned her head and remembers feeling very dizzy and nauseated with vomiting. She has cerebral palsy, she cannot provide a good history and exam is limited as well. [facility] Medical History Anemia Anxiety Asthma Bipolar 1 disorder Cerebral palsy Falls Fibromyalgia GERD (gastroesophageal reflux disease) HBP (high blood pressure) Hypercholesteremia Hyperlipidemia Hypertension Hypothyroid Irritable bowel Kyphosis Migraine Peripheral vascular disease Schizoaffective disorder Home Medications fluticasone propionate 50 mcg/actuation nasal spray,suspension 2 spray NASAL DAILY congestion 01/03/16 [History Last Taken 03/24/21] tizanidine 4 mg tablet 4 mg PO 4X/DAY muscle relaxer 01/03/16 [History Last Taken 03/24/21] aspirin 81 mg chewable tablet 81 mg PO DAILY heart health 12/16/17 [History Last Taken 03/24/21] lisinopril 5 mg tablet 5 mg PO DAILY bp 10/21/18 [History Last Taken 03/24/21] multivitamin 1 ea PO DAILY supplement 12/02/18 [History Last Taken 03/24/21] polyethylene glycol 3350 17 gram oral powder packet 17 g PO DAILY 06/22/19 [History Last Taken 03/22/21] albuterol sulfate 90 mcg/actuation aerosol inhaler 2 puff inhalation Q6H PRN PRN Sob &/Or Wheezing 04/16/20 [History Last Taken 11/05/20] aluminum-mag hydroxide-simethicone 400 mg-400 mg-40 mg/5 mL oral susp 20 ml PO Q8 PRN Constipation 04/16/20 [History Last Taken 03/24/21] diclofenac sodium 1 % topical gel 1 applic topical Q6H PRN PRN Pain 04/16/20 [History Last Taken 03/24/21] hydrocortisone-aloe vera 1 % topical cream 1 applic topical Q8H PRN PRN Itching 04/16/20 [History Last Taken 03/22/21] cyanocobalamin (vitamin B-12) 1,000 mcg/mL injection solution 1,000 mcg IM Q30D supplement 01/07/21 [History Last Taken 03/17/21] promethazine 25 mg tablet 25 mg PO Q6H PRN PRN Nausea 01/07/21 [History Last Taken 03/23/21] atorvastatin 40 mg tablet 40 mg PO QHS #30 tabs 03/25/21 [Rx Last Taken Unknown] acetaminophen 500 mg tablet (Acetaminophen Extra Strength) 1,000 mg PO Q6H PRN Pain 09/18/21 [History Last Taken Unknown] artificial tears solution eye drops 1 drp ophthalmic (eye) PRN PRN Dry Eye(S) 09/18/21 [History Last Taken Unknown] dextromethorphan-guaifenesin 30 mg-600 mg tablet extended [id number] hr (Mucinex DM) 1 tab PO Q12H 09/18/21 [History Last Taken Unknown] ferrous sulfate 325 mg (65 mg iron) tablet 325 mg PO BID 09/18/21 [History Last Taken Unknown] adalid (Zingiber officinalis) 550 mg capsule 550 mg PO DAILY 09/18/21 [History Last Taken Unknown] levothyroxine 112 mcg tablet 100 mcg PO DAILY 09/18/21 [History Last Taken Unknown] meclizine 25 mg capsule 25 mg PO Q6H PRN PRN Dizziness 09/18/21 [History Last Taken Unknown] psyllium husk 0.52 gram capsule (Metamucil) 0.52 g PO BID 09/18/21 [History Last Taken Unknown] gabapentin 300 mg capsule 600 mg PO TID nerve pain 01/14/22 [History Last Taken Unknown] lamotrigine 200 mg tablet 200 mg PO BID 01/14/22 [History Last Taken Unknown] clopidogrel 75 mg tablet (Plavix) 75 mg PO DAILY 02/15/22 [History Last Taken Unknown] azithromycin 250 mg tablet 250 mg PO DAILY 04/16/22 [History Last Taken Unknown] calcium carb-ergocalciferol (vit D2) 500 mg (1,250 mg)-200 unit tablet 1 tab PO BID 04/16/22 [History Last Taken Unknown] lamotrigine 150 mg tablet (Lamictal) 300 mg PO QHS 04/16/22 [History Last Taken Unknown] lamotrigine 200 mg tablet (Lamictal) 200 mg PO BID 04/16/22 [History Last Taken Unknown] pantoprazole 40 mg tablet,delayed release 40 mg PO BID 04/16/22 [History Last Taken Unknown] prednisone 20 mg tablet 60 mg PO DAILY #15 TABLETS 04/16/22 [Rx Last Taken Unknown] Allergy/AdvReac Type Severity Reaction Status Date / Time lithium Allergy Mild Vomiting Verified 04/16/22 22:52 aspartame Allergy Itching Verified 04/16/22 22:52 carrot Allergy Food Verified 04/16/22 22:52 Allergy ciclesonide [From [place]] Allergy Shortness Verified 04/16/22 22:52 of breath diphenhydramine Allergy Other Verified 04/16/22 22:52 [From Benadryl] diphenhydramine HCl Allergy Rash Verified 04/16/22 22:52 [From Benadryl] imipramine Allergy Other Verified 04/16/22 22:52 levofloxacin [From Levaquin] Allergy Itching Verified 04/16/22 22:52 onabotulinumtoxinA Allergy Itching Verified 04/16/22 22:52 [From Botox] Penicillins Allergy Rash Verified 04/16/22 22:52 Sulfa (Sulfonamide Allergy NEEDS Verified 04/16/22 22:52 Antibiotics) FOLLOW-UP topiramate [From Topamax] Allergy Other Verified 04/16/22 22:52 baclofen AdvReac Severe vomitting Verified 04/16/22 22:52 erythromycin base AdvReac Severe chest pain Verified 04/16/22 22:52 fentanyl AdvReac Severe Vomiting Verified 04/16/22 22:52 lubiprostone [From Amitiza] AdvReac Severe Vomiting Verified 04/16/22 22:52 ondansetron [From Zofran] AdvReac Severe Vomiting Verified 04/16/22 22:52 oxycodone AdvReac Severe vomitting Verified 04/16/22 22:52 oxymorphone AdvReac Severe ABD pain Verified 04/16/22 22:52 and vomiting pregabalin [From Lyrica] AdvReac Severe eyes would Verified 04/16/22 22:52 stay closed codeine AdvReac nausea Verified 04/16/22 22:52 sertraline [From Zoloft] AdvReac serotoin Verified 04/16/22 22:52 syndrome environmental Allergy Other Uncoded 04/16/22 22:52 Family History Sister CVA (cerebral vascular accident) Afib Heart disease Liver disease Brother Colon cancer Father Emphysema lung Surgical History History of total left knee replacement History of total right knee replacement Social History adopted: No housing: assisted living facility current occupational status: disabled pets and animals: No Smoking Status: Never smoker alcohol intake: never substance use type: does not use ROS ROS ED Review of Systems ROS Unobtainable: due to mental condition Constitutional Constitutional ED: Denies chills or fever(s) ENT ENT ED: Reports other Details: I have chronic right ear vestibular problems ; Denies ear pain or headache(s) Cardiovascular Cardiovascular: Denies chest pain or palpitations Respiratory/Chest Respiratory/Chest: Reports cough; Denies dyspnea Musculoskeletal Musculoskeletal: Denies back pain or neck pain Integumentary Denies abscess, Abrasions or rash Neurologic Neurologic: Denies headache(s), paresthesias or weakness EXAM Physical Exam Const Vital Signs: 04/16/22 22:52 04/16/22 22:57 04/16/22 22:59 Temperature 96.9 F L Temperature Source Temporal Pulse Rate 69 Respiratory Rate 18 20 H Respiratory Effort Normal Non-Labored Respiratory Pattern Normal Blood Pressure 150/123 H Blood Pressure Mean 132 Pulse Ox 98 Oxygen Delivery Method Room Air Room Air Oxygen Flow Rate (L/min) 04/16/22 23:25 04/17/22 00:13 04/17/22 00:14 Temperature Temperature Source Pulse Rate 72 Respiratory Rate 20 H Respiratory Effort Respiratory Pattern Blood Pressure 160/74 H Blood Pressure Mean 102 Pulse Ox 92 83 100 Oxygen Delivery Method Room Air Room Air Nasal Cannula Oxygen Flow Rate (L/min) 3 04/17/22 02:04 04/17/22 02:31 Temperature Temperature Source Pulse Rate 81 85 Respiratory Rate 16 18 Respiratory Effort Respiratory Pattern Blood Pressure 186/89 H 155/65 H Blood Pressure Mean 121 95 Pulse Ox 100 98 Oxygen Delivery Method Room Air Room Air Oxygen Flow Rate (L/min) Positive well nourished and well developed General Appearance ED: well developed and NAD HEENT Reports EAC's normal, TM's normal bilaterally and moist mucous membranes normocephalic, normal to inspection and atraumatic Eyes PERRL and EOMs intact bilaterally Eyes Narrative: Not able to evaluate for nystagmus, mental status limits exam Neck no lymphadenopathy and supple Cardio regular rate, regular rhythm, S1 normal heart sound and S2 normal heart sound GI normal to inspection, nondistended, normoactive bowel sounds, non-tender and non-distended Back/Spine no CVA tenderness Cervical Spine: Negative for cervical spine tenderness Skin no rashes or lesions noted and no wounds MDM MDM MDM Narrative Medical decision making narrative: Head CT was obtained, it shows nothing acute. Patient was given meclizine and was feeling better but still said she was dizzy. Her blood pressure was very high on multiple rechecks, although it did seem to wax and wane. We gave her hydralazine, her blood pressure came down to the 140s, she was feeling better. Now she wants Tylenol for headache which is given, and her albuterol inhaler for her cough/bronchitis. We do not have albuterol inhalers to give out here, she is not wheezing or dyspneic at this time, she is discharged and can use it when she gets back to the nursing facility that she resides at. She will already has prn meclizine on her medication list and she was already started on prednisone for asthma exacerbation in relation to her URI. Radiography Diagnostic Testing: Clinical Impression(s) from Imaging Studies Brain CT 04/16/22 23:08 IMPRESSION: Stable chronic changes. No acute intracranial abnormality identified. Electronically Signed: Rekha Gonzalez MD at 0:17 EDT , Discharge Plan Triage Chief Complaint: Weakness Other Complaint: Nausea/Vomiting ED Provider: Dima Myers Dx/Rx/DC Orders Clinical Impression: Peripheral vertigo, Episode of hypertension Instructions: Hypertension Dc, ED Vertigo, Unspecified Prescriptions: No Action aspirin 81 mg tablet,chewable 81 mg PO DAILY lamotrigine 200 mg tablet 200 mg PO BID tizanidine 4 MG tablet 4 mg PO 4X/DAY fluticasone propionate 1 SPRAY spray,suspension 2 spray NASAL DAILY lisinopril 5 MG tablet 5 mg PO DAILY Label Comments: TAKE ONE TABLET BY MOUTH EVERY DAY multivitamin 1 EACH tablet 1 ea PO DAILY polyethylene glycol 3350 17 GM packet 17 g PO DAILY hydrocortisone-aloe vera 1 APPLIC cream 1 applic topical Q8H PRN PRN (Reason: Itching) albuterol sulfate 1 INHALER inhaler 2 puff inhalation Q6H PRN PRN (Reason: Sob &/Or Wheezing) alum-mag hydroxide-simeth 30 ML suspension 20 ml PO Q8 PRN (Reason: Constipation) diclofenac sodium 1 APPLIC gel 1 applic topical Q6H PRN PRN (Reason: Pain) cyanocobalamin (vitamin B-12) 1,000 MCG/ML solution 1,000 mcg IM Q30D promethazine 25 MG tablet 25 mg PO Q6H PRN PRN (Reason: Nausea) atorvastatin 40 mg tablet 40 mg PO QHS Qty: 30 0RF gabapentin 300 mg capsule 600 mg PO TID artificial tears solution Drops 1 drp OPHTHALMIC (EYE) PRN PRN (Reason: Dry Eye(S)) meclizine 25 mg Capsule 25 mg PO Q6H PRN PRN (Reason: Dizziness) acetaminophen [Acetaminophen Extra Strength] 500 mg Tablet 1,000 mg PO Q6H PRN (Reason: Pain) ferrous sulfate 325 mg (65 mg iron) Tablet 325 mg PO BID Mucinex DM 30-600 mg Tablet Extended Release 12 Hr 1 tab PO Q12H psyllium husk [Metamucil] 0.52 gram Capsule 0.52 g PO BID adalid (Zingiber officinalis) 550 mg Capsule 550 mg PO DAILY levothyroxine 112 mcg tablet 100 mcg PO DAILY clopidogrel [Plavix] 75 mg Tablet 75 mg PO DAILY prednisone 20 MG tablet 60 mg PO DAILY Qty: 15 0RF Rx Instructions: x5days to start 04/17 azithromycin 250 mg Tablet 250 mg PO DAILY pantoprazole 40 mg Tablet,Delayed Release (Dr/Ec) 40 mg PO BID Calcium 500 with Vitamin D2 500 mg(1,250mg) -200 unit Tablet 1 tab PO BID lamotrigine [Lamictal] 150 mg Tablet 300 mg PO QHS lamotrigine [Lamictal] 200 mg Tablet 200 mg PO BID Primary Care Provider: Alex Self Referrals: Alex Self MD [Primary Care Provider] - 3-5 Days Disposition Disposition: Home, Self Care
[2022-04-16] MEDS: LORazepam 2 MG/ML Syringe 0.5 MG IV (23:21)
[2022-04-16] MEDS: Metoclopramide 10 MG/2 ML Vial 5 MG IV (23:21)
--- NOTE | 2022-04-16 23:22 | ED.RN ---
pt falling asleep in bed prior to ativan administration but awakens easily and is anxious.
[2022-04-16 23:25] VITALS: BP 160/74; PULSE 72; RESP 20; O2SAT 92
[2022-04-17 00:13] VITALS: O2SAT 83
[2022-04-17 00:14] VITALS: O2SAT 100
[2022-04-17 02:04] VITALS: BP 186/89; PULSE 81; RESP 16; O2SAT 100
[2022-04-17] MEDS: hydrALAZINE 20 MG/ML Vial 10 MG IV (02:05)
[2022-04-17 02:31] VITALS: BP 155/65; PULSE 85; RESP 18; O2SAT 98
[2022-04-17] MEDS: Acetaminophen 325 MG Tablet 650 MG PO (03:26)
--- NOTE | 2022-04-17 03:29 | NURSING ---
CALLED PHYSICIANS AT 0330 ETA 30 MIN
[2022-04-17 03:33] VITALS: BP 172/96; PULSE 96; RESP 30; O2SAT 97
[2022-04-17] MEDS: cloNIDine HCl 0.2 MG Tablet PO (04:04)
== END 2022-04-17 03:33 | disposition home or self-care (01) ==
PROVIDERS: Emergency Provider Emergency Medicine; PCP Family Medicine; Visit Provider Emergency Medicine
DX: H81.399 Other peripheral vertigo, unspecified ear (principal); G80.9 Cerebral palsy, unspecified; I10 Essential (primary) hypertension; E78.00 Pure hypercholesterolemia, unspecified; K21.9 Gastro-esophageal reflux disease without esophagitis; J45.909 Unspecified asthma, uncomplicated; E03.9 Hypothyroidism, unspecified; Z79.82 Long term (current) use of aspirin; Z79.899 Other long term (current) drug therapy; Z79.02 Long term (current) use of antithrombotics/antiplatelets
CPT/HCPCS: 70450; 71045; 80048; 85025; 87428; 96374; 96375; 99285; A4216

== ENCOUNTER → 2022-07-21 | Outpatient (CLI) | payer MEDICARE, MEDICAID, SELFPAY ==
--- NOTE | 2022-07-21 10:07 | MRI_ITS ---
STUDY: MRI LEFT SHOULDER REASON FOR EXAM: Left shoulder pain and limited range of motion, evaluate for rotator cuff tear. TECHNIQUE: Standardized fat and water weighted pulse sequences were obtained in all 3 orthogonal planes. COMPARISON: Radiographs 07/13/2021. FINDINGS: Although there is image degradation secondary to patient motion, there is still significant diagnostically useful information available from this examination. There is supraspinatus tendinosis and a full-thickness tear of the supraspinatus tendon (T2 coronal images 10, 11) measuring approximately 1.8 cm in length. There is infraspinatus tendinosis (T2 coronal images 14, 15) without discrete tendon tear. There is mild attenuation of the distal superior fibers of the subscapularis tendon (proton-density axial images 10, 11). Normal teres minor tendon. Normal supraspinatus muscle. There is an infraspinatus muscle strain (T2 coronal image 17). Normal subscapularis muscle. Normal teres minor muscle. There is glenohumeral arthrosis with chondral thinning (T2 coronal images 11-14) and subchondral bone edema of the superior medial humeral head and a small focus of subchondral bone edema in the superior glenoid. Normal intracapsular long biceps tendon. There is degeneration of the labrum. Normal capsulo- ligamentous complex. There is acromioclavicular arthrosis without substantial undersurface osteophytes (T2 sagittal image 12). There is a Type II morphology (curved), with a neutral orientation. There is a small volume of subacromial-subdeltoid bursal fluid. There is thickening of the coracoacromial ligament (T2 sagittal image 9). Normal deltoid muscle. Normal trapezius muscle. MRI/Upper Ext Joint Only(Routine) IMPRESSION: Full-thickness tear and tendinosis of the supraspinatus tendon Mild attenuation of the subscapularis tendon. Infraspinatus tendinosis. Infraspinatus muscle strain. Glenohumeral arthrosis with degeneration labrum. Acromioclavicular arthrosis. Thickening of the coracoacromial ligament. Small volume of subacromial-subdeltoid bursal fluid. Electronically Signed: Umer Araujo MD at 11:51 EDT ,
== END | disposition home or self-care (01) ==
LOC: MRI 10:07
PROVIDERS: PCP Family Medicine; Referring Provider Orthopaedic Surgery Sports Medicine; Visit Provider Orthopaedic Surgery Sports Medicine
DX: M75.102 Unspecified rotator cuff tear or rupture of left shoulder, not specified as traumatic (principal)
CPT/HCPCS: 73221

== ENCOUNTER → 2022-08-05 | Outpatient (REF) | payer MEDICARE, MEDICAID, SELFPAY ==
[2022-08-05 08:51] LABS: Hematocrit 40.2 % (37-47); Hemoglobin 12.9 g/dL (12.0-15.0); Mean Corp Hgb Conc 32.1 g/dL (32-36); Mean Corpuscular Hgb 33.3 pg (27.0-32.0); Mean Corpuscular Volume 103.9 fL (81-99); Mean Platelet Vol. 8.9 fl (6.2-12.0); Platelet Count 250 K/mm3 (150-450); RBC Distribution Width CV 12.4 % (11.6-14.6); RBC Distribution Width SD 46.8 fl (35.1-43.9); Red Blood Count 3.87 M/mm3 (4.2-5.4); White Blood Count 5.4 K/mm3 (4.4-11.0)
[2022-08-05 09:25] LABS: Cholesterol 169 mg/dL (200); High Density Lipoprotein 75 mg/dL; T4 Free Direct 1.65 ng/dL (0.76-1.46); Thyroid Stim Hormone (TSH) 1.79 uIU/mL (0.358-3.74); Triglycerides 64 mg/dL; Very Low Density Lipoprotein 13 mg/dL (5-40)
== END ==
LOC: OLS.SWAL 05:00
PROVIDERS: PCP Family Medicine
DX: M43.12 Spondylolisthesis, cervical region (principal); E03.9 Hypothyroidism, unspecified; E78.5 Hyperlipidemia, unspecified; D64.9 Anemia, unspecified
CPT/HCPCS: 36415; 80061; 84439; 84443; 85027

== ENCOUNTER → 2022-09-08 | Outpatient (REF) | payer MEDICARE, MEDICAID, SELFPAY ==
[2022-09-11 15:08] LABS: Lamotrigine (Lamictal) Level 9.5 ug/mL (2.0-20.0)
== END ==
LOC: OLS.SWAL 05:00
PROVIDERS: PCP Family Medicine
DX: F31.9 Bipolar disorder, unspecified (principal)
CPT/HCPCS: 36415; 82542

== ENCOUNTER → 2022-11-12 | Outpatient (REF) | payer MEDICARE, MEDICAID, SELFPAY ==
[2022-11-12 10:09] LABS: Hematocrit 35.9 % (37-47); Hemoglobin 11.5 g/dL (12.0-15.0); Mean Corpuscular Hgb 33.3 pg (27.0-32.0); Mean Corpuscular Volume 104.1 fL (81-99); Platelet Count 250 K/mm3 (150-450); RBC Distribution Width CV 12.5 % (11.6-14.6); RBC Distribution Width SD 47.4 fl (35.1-43.9); Red Blood Count 3.45 M/mm3 (4.2-5.4)
[2022-11-12 10:30] LABS: Vitamin D,25 Hydroxy 27.8 ng/mL
[2022-11-12 11:25] LABS: ALB/GLOB Ratio 1.3 RATIO (0.9-2.4); AST(SGOT) 25 U/L (15-37); Alanine Aminotransfer ALT/SGPT 37 U/L (13-56); Albumin, Serum 3.6 g/dL (3.2-5.0); Alkaline Phosphatase 72 U/L (45-117); Anion Gap 8 (5-15); BUN 16 mg/dL (7-18); BUN/Creat Ratio 15.1 RATIO (10-20); Chloride 102 mmol/L (98-107); Cholesterol 175 mg/dL (200); Creatinine, Serum 1.06 mg/dL (0.55-1.02); EST Glomerular Filtration Rate 55 mL/min (>60); Est Glom Filt Rate - Afr Amer 67 mL/min (>60); Ferritin 41 ng/mL (8-252); Globulin 2.8 g/dL (2.2-4.2); Glucose 86 mg/dL (74-106); High Density Lipoprotein 94 mg/dL; Potassium 4.2 mmol/L (3.5-5.1); Protein, Total 6.4 g/dL (6.4-8.2); Sodium Level 136 mmol/L (136-145); T4 Free Direct 1.59 ng/dL (0.76-1.46); Thyroid Stim Hormone (TSH) 5.51 uIU/mL (0.358-3.74); Triglycerides 65 mg/dL; Very Low Density Lipoprotein 13 mg/dL (5-40)
== END ==
LOC: OLS.SWAL 05:00
PROVIDERS: PCP Family Medicine; Visit Provider Family Medicine
DX: D64.9 Anemia, unspecified (principal); E55.9 Vitamin D deficiency, unspecified; E78.00 Pure hypercholesterolemia, unspecified; M19.90 Unspecified osteoarthritis, unspecified site; I10 Essential (primary) hypertension; E03.9 Hypothyroidism, unspecified
CPT/HCPCS: 36415; 80053; 80061; 82306; 82728; 84439; 84443; 85027

== ENCOUNTER → 2023-02-10 | Outpatient (REF) | payer MEDICARE, MEDICAID, SELFPAY ==
[2023-02-10 06:55] LABS: Hematocrit 36.1 % (37-47); Hemoglobin 11.3 g/dL (12.0-15.0); Mean Corp Hgb Conc 31.3 g/dL (32-36); Mean Corpuscular Hgb 32.3 pg (27.0-32.0); Mean Corpuscular Volume 103.1 fL (81-99); Mean Platelet Vol. 8.7 fl (6.2-12.0); Platelet Count 215 K/mm3 (150-450); RBC Distribution Width CV 13.1 % (11.6-14.6); RBC Distribution Width SD 49.2 fl (35.1-43.9); White Blood Count 4.3 K/mm3 (4.4-11.0)
[2023-02-10 07:12] LABS: ALB/GLOB Ratio 1.2 RATIO (0.9-2.4); AST(SGOT) 21 U/L (15-37); Alanine Aminotransfer ALT/SGPT 25 U/L (13-56); Albumin, Serum 3.1 g/dL (3.2-5.0); Alkaline Phosphatase 72 U/L (45-117); Anion Gap 2 (5-15); BUN 12 mg/dL (7-18); BUN/Creat Ratio 13.8 RATIO (10-20); Calcium,Total 8.5 mg/dL (8.5-10.1); Chloride 109 mmol/L (98-107); Cholesterol 145 mg/dL (200); Creatinine, Serum 0.87 mg/dL (0.55-1.02); EST Glomerular Filtration Rate 69 mL/min (>60); Est Glom Filt Rate - Afr Amer 84 mL/min (>60); Globulin 2.5 g/dL (2.2-4.2); Glucose 95 mg/dL (74-106); High Density Lipoprotein 74 mg/dL; Potassium 3.9 mmol/L (3.5-5.1); Protein, Total 5.6 g/dL (6.4-8.2); Sodium Level 139 mmol/L (136-145); T4 Free Direct 1.44 ng/dL (0.76-1.46); Thyroid Stim Hormone (TSH) 4.75 uIU/mL (0.358-3.74); Triglycerides 55 mg/dL; Very Low Density Lipoprotein 11 mg/dL (5-40)
== END ==
LOC: OLS.SWAL 05:00
PROVIDERS: PCP Family Medicine
DX: I10 Essential (primary) hypertension (principal); E78.5 Hyperlipidemia, unspecified; E03.9 Hypothyroidism, unspecified
CPT/HCPCS: 36415; 80053; 80061; 84439; 84443; 85027

== ENCOUNTER → 2023-05-12 | Outpatient (REF) | payer MEDICARE, MEDICAID, SELFPAY ==
[2023-05-12 09:24] LABS: Hematocrit 34.6 % (37-47); Hemoglobin 11.5 g/dL (12.0-15.0); Mean Corp Hgb Conc 33.2 g/dL (32-36); Mean Corpuscular Volume 96.4 fL (81-99); Mean Platelet Vol. 8.4 fl (6.2-12.0); Platelet Count 254 K/mm3 (150-450); RBC Distribution Width CV 12.1 % (11.6-14.6); RBC Distribution Width SD 43.1 fl (35.1-43.9); Red Blood Count 3.59 M/mm3 (4.2-5.4); White Blood Count 5.2 K/mm3 (4.4-11.0)
[2023-05-12 09:44] LABS: Vitamin B12 > 2000 pg/mL (211-911); Vitamin D,25 Hydroxy 57.2 ng/mL
[2023-05-12 09:50] LABS: ALB/GLOB Ratio 1.1 RATIO (0.9-2.4); AST(SGOT) 17 U/L (15-37); Alanine Aminotransfer ALT/SGPT 16 U/L (13-56); Albumin, Serum 3.1 g/dL (3.2-5.0); Alkaline Phosphatase 93 U/L (45-117); Anion Gap 3 (5-15); BUN 11 mg/dL (7-18); BUN/Creat Ratio 11.9 RATIO (10-20); Calcium,Total 8.9 mg/dL (8.5-10.1); Chloride 110 mmol/L (98-107); Cholesterol 130 mg/dL (200); Creatinine, Serum 0.92 mg/dL (0.55-1.02); EST Glomerular Filtration Rate 64 mL/min (>60); Est Glom Filt Rate - Afr Amer 78 mL/min (>60); Ferritin 42 ng/mL (8-252); Free T3 2.6 pg/mL (2.18-3.98); Globulin 2.9 g/dL (2.2-4.2); Glucose 88 mg/dL (74-106); High Density Lipoprotein 70 mg/dL; Potassium 3.9 mmol/L (3.5-5.1); Sodium Level 142 mmol/L (136-145); Triglycerides 40 mg/dL; Very Low Density Lipoprotein 8 mg/dL (5-40)
== END ==
LOC: OLS.SWAL 05:00
PROVIDERS: PCP Family Medicine; Visit Provider Family Medicine
DX: D64.9 Anemia, unspecified (principal); E78.00 Pure hypercholesterolemia, unspecified; E03.9 Hypothyroidism, unspecified; M81.0 Age-related osteoporosis without current pathological fracture; Z86.2 Personal history of diseases of the blood and blood-forming organs and certain disorders involving the immune mechanism
CPT/HCPCS: 36415; 80053; 80061; 82306; 82607; 82728; 84439; 84443; 84481; 85027

== ENCOUNTER 2023-07-08 20:30 | Emergency (ER) | payer MEDICARE, MEDICAID, SELFPAY ==
[2023-07-08 20:31] VITALS: BP 137/90; PULSE 90; RESP 16; TEMP 36.7; O2SAT 96
[2023-07-08 20:58] LABS: Absolute Lymphocyte Count 1.29 X10^3/uL (0.83-4.51); Absolute Neutrophil Count 3.6 X10^3/uL (2.0-7.7); Basophil# 0.04 X10^3/uL; Basophil% 0.7 % (0-1); Eosinophil# 0.03 X10^3/uL; Eosinophils% 0.5 % (0-5); Hematocrit 37.9 % (37-47); Hemoglobin 12.7 g/dL (12.0-15.0); Lymphocyte # 1.29 X10^3/ul (0.83-4.51); Lymphocyte % 22.7 % (19-41); Mean Corp Hgb Conc 33.5 g/dL (32-36); Mean Corpuscular Hgb 31.7 pg (27.0-32.0); Mean Corpuscular Volume 94.5 fL (81-99); Mean Platelet Vol. 8.7 fl (6.2-12.0); Monocyte# 0.68 X10^3/uL; NRBC Flagged by Analyzer 0 % (0-5); Neutrophil # 3.62 X10^3/uL (2.7-7.7); Neutrophil % 63.7 % (47-70); Platelet Count 235 K/mm3 (150-450); RBC Distribution Width CV 12.1 % (11.6-14.6); RBC Distribution Width SD 41.8 fl (35.1-43.9); Red Blood Count 4.01 M/mm3 (4.2-5.4); White Blood Count 5.7 K/mm3 (4.4-11.0)
[2023-07-08 21:12] LABS: Alcohol, Blood (Medical)-Serum < 3.0 mg/dL
[2023-07-08 21:13] LABS: Anion Gap 6 (5-15); BUN 16 mg/dL (7-18); BUN/Creat Ratio 12.1 RATIO (10-20); Chloride 108 mmol/L (98-107); Creatinine, Serum 1.32 mg/dL (0.55-1.02); EST Glomerular Filtration Rate 43 mL/min (>60); Est Glom Filt Rate - Afr Amer 52 mL/min (>60); Glucose 125 mg/dL (74-106); Potassium 3.5 mmol/L (3.5-5.1); Sodium Level 140 mmol/L (136-145)
[2023-07-08 22:36] LABS: Amphetamine Urine VISTA NEGATIVE (<1000 ng/mL); Barbiturate Urine VISTA NEGATIVE (< 200 ng/mL); Benzodiazepine Urine VISTA NEGATIVE (< 200 ng/mL); Cocaine Urine VISTA NEGATIVE (< 300 ng/mL); Ecstacy Urine VISTA NEGATIVE (< 500 ng/mL); Methadone Urine VISTA NEGATIVE (< 300 ng/mL); PCP Urine VISTA NEGATIVE (< 25 ng/mL); THC Urine VISTA NEGATIVE (< 50 ng/mL); Vista UDS pH Range 6
[2023-07-08 23:16] VITALS: BMI 36.7
--- NOTE | 2023-07-09 00:02 | NURSING ---
CALLED [facility] AT [phone] AND FAXED CHART
--- NOTE | 2023-07-09 00:24 | EX.ED.VIS.PS ---
HPI HPI - Psych History of Present Illness Chief Complaint: Suicidal Informant: patient Narrative Narrative: Patient states someone advised she come to the ER because she seems to be manic. She is not totally in disagreement, unknown how long she has been like this, but states she has really been having trouble sleeping for at least last couple weeks. She takes her medications as prescribed. She is trying to get on brand name Latuda but is currently going through the process, she does not think the generic is working well enough for her. Has had no recent medication changes according to her. Has been following with her psychiatrist as directed. PFSH [facility] Medical History Anemia Anxiety Anxiety disorder, unspecified Asthma Bipolar 1 disorder Bipolar 1 disorder, depressed Cerebral palsy Diverticulitis Falls Fibromyalgia GERD (gastroesophageal reflux disease) HBP (high blood pressure) Hypercholesteremia Hyperlipidemia Hypertension Hypothyroid Irritable bowel Kyphosis Left rotator cuff tear Left rotator cuff tear Migraine Peripheral vascular disease Primary osteoarthritis, left shoulder Schizoaffective disorder Home Medications fluticasone propionate 50 mcg/actuation nasal spray,suspension 2 spray NASAL DAILY congestion 01/03/16 [History Last Taken 03/24/21] aspirin 81 mg chewable tablet 81 mg PO DAILY heart health 12/16/17 [History Last Taken 03/24/21] multivitamin 1 ea PO DAILY supplement 12/02/18 [History Last Taken 03/24/21] polyethylene glycol 3350 17 gram oral powder packet 17 g PO DAILY 06/22/19 [History Last Taken 03/22/21] albuterol sulfate 90 mcg/actuation aerosol inhaler 2 puff inhalation Q6H PRN PRN Sob &/Or Wheezing 04/16/20 [History Last Taken 11/05/20] aluminum-mag hydroxide-simethicone 400 mg-400 mg-40 mg/5 mL oral susp 20 ml PO Q8 PRN Constipation 04/16/20 [History Last Taken 03/24/21] diclofenac sodium 1 % topical gel 1 applic topical Q6H PRN PRN Pain 04/16/20 [History Last Taken 03/24/21] promethazine 25 mg tablet 25 mg PO Q6H PRN PRN Nausea 01/07/21 [History Last Taken 03/23/21] acetaminophen 500 mg tablet (Acetaminophen Extra Strength) 1,000 mg PO Q6H PRN Pain 11/18/21 [History Last Taken Unknown] artificial tears solution eye drops 1 drp ophthalmic (eye) PRN PRN Dry Eye(S) 09/18/21 [History Last Taken Unknown] lamotrigine 200 mg tablet 200 mg PO BID 01/14/22 [History Last Taken Unknown] clopidogrel 75 mg tablet (Plavix) 75 mg PO DAILY 02/15/22 [History Last Taken Unknown] calcium carb-ergocalciferol (vit D2) 500 mg (1,250 mg)-200 unit tablet 1 tab PO BID 04/16/22 [History Last Taken Unknown] amlodipine 5 mg tablet 5 mg PO 06/03/22 [History Last Taken Unknown] ammonium lactate 12 % topical cream 1 applic topical DAILY 06/17/22 [History Last Taken Unknown] calcium polycarbophil 625 mg tablet (Fiber Laxative (calcium polycarbophil)) 625 mg PO DAILY 06/17/22 [History Last Taken Unknown] nystatin 100,000 unit/gram topical powder 1 applic topical DAILY 06/17/22 [History Last Taken Unknown] cyclobenzaprine 10 mg tablet 10 mg PO Q8H PRN 09/07/22 [History Last Taken Unknown] ferrous sulfate 325 mg (65 mg iron) tablet 325 mg PO DAILY 09/07/22 [History Last Taken Unknown] lamotrigine 200 mg tablet (Lamictal) 300 mg PO QHS 09/07/22 [History Last Taken Unknown] losartan 25 mg tablet 25 mg PO DAILY 09/07/22 [History Last Taken Unknown] tizanidine 4 mg tablet See Rx Instructions PO .COMPLEX muscle relaxer 09/07/22 [History Last Taken Unknown] meclizine 25 mg capsule 12.5 mg PO Q6H PRN Dizziness 10/07/22 [History Last Taken Unknown] lactase 9,000 unit tablet See Rx Instructions PO .COMPLEX PRN lactose intolerance #360 tabs 11/24/22 [Rx Last Taken Unknown] rabeprazole 20 mg tablet,delayed release 20 mg PO BID #60 tabs 11/24/22 [Rx Last Taken Unknown] cholecalciferol (vitamin D3) 50 mcg (2,000 unit) capsule 50 mcg PO DAILY PRN 12/03/22 [History Last Taken Unknown] triamcinolone acetonide 0.1 % topical cream 1 applic topical 12/03/22 [History Last Taken Unknown] lidocaine 4 % topical patch (Salonpas (lidocaine)) 1 patch topical DAILY PRN pain #30 ea 02/01/23 [Rx Last Taken Unknown] hydroxyzine pamoate 25 mg capsule 25 mg PO BID PRN anxiety #60 caps 02/04/23 [Rx Last Taken Unknown] ibandronate 150 mg tablet mg PO QMONTH 04/29/23 [History Last Taken Unknown] budesonide 0.25 mg/2 mL suspension for nebulization 0.25 mg inhalation BID 05/31/23 [History Last Taken Unknown] cyanocobalamin (vitamin B-12) 1,000 mcg/mL injection solution 1,000 mcg IM Q2W supplement 05/31/23 [History Last Taken Unknown] gabapentin 600 mg tablet 600 mg PO 05/31/23 [History Last Taken Unknown] levothyroxine 88 mcg tablet (Synthroid) mcg PO 05/31/23 [History Last Taken Unknown] rosuvastatin 5 mg tablet mg PO 05/31/23 [History Last Taken Unknown] cetirizine 10 mg capsule (Zyrtec) 10 mg PO DAILY PRN 06/16/23 [History Last Taken Unknown] formoterol fumarate 20 mcg/2 mL solution for nebulization 2 ml inhalation BID 06/16/23 [History Last Taken Unknown] hydrocodone-acetaminophen 5-325mg 5mg-325mg 1 tab PO Q8H PRN 06/16/23 [History Last Taken Unknown] Latuda 20 mg tablet (lurasidone) 20 mg PO QPM #30 tabs 07/08/23 [Rx Last Taken Unknown] Allergy/AdvReac Type Severity Reaction Status Date / Time lithium Allergy Mild Vomiting Verified 07/08/23 20:35 propantheline Allergy Unknown unknown Verified 07/08/23 20:35 ziprasidone [From Geodon] Allergy Unknown unknown Verified 07/08/23 20:35 aspartame Allergy Itching Verified 07/08/23 20:35 carrot Allergy Food Verified 07/08/23 20:35 Allergy ciclesonide [From Alvesco] Allergy Shortness Verified 07/08/23 20:35 of breath diphenhydramine Allergy Other Verified 07/08/23 20:35 [From Benadryl] diphenhydramine HCl Allergy Rash Verified 07/08/23 20:35 [From Benadryl] imipramine Allergy Other Verified 07/08/23 20:35 levofloxacin [From Levaquin] Allergy Itching Verified 07/08/23 20:35 onabotulinumtoxinA Allergy Itching Verified 07/08/23 20:35 [From Botox] Penicillins Allergy Rash Verified 07/08/23 20:35 Seasonal Allergies: Uncoded Allergy NEEDS Verified 07/08/23 20:35 [environmental] FOLLOW-UP Sulfa (Sulfonamide Allergy NEEDS Verified 07/08/23 20:35 Antibiotics) FOLLOW-UP sulfamethoxazole Allergy NEEDS Verified 07/08/23 20:35 [From Bactrim] FOLLOW-UP topiramate [From Topamax] Allergy Other Verified 07/08/23 20:35 trimethoprim [From Bactrim] Allergy NEEDS Verified 07/08/23 20:35 FOLLOW-UP baclofen AdvReac Severe vomitting Verified 07/08/23 20:35 erythromycin base AdvReac Severe chest pain Verified 07/08/23 20:35 fentanyl AdvReac Severe Vomiting Verified 07/08/23 20:35 lubiprostone [From Amitiza] AdvReac Severe Vomiting Verified 07/08/23 20:35 ondansetron [From Zofran] AdvReac Severe Vomiting Verified 07/08/23 20:35 oxycodone AdvReac Severe vomitting Verified 07/08/23 20:35 oxymorphone AdvReac Severe ABD pain Verified 07/08/23 20:35 and vomiting pregabalin [From Lyrica] AdvReac Severe eyes would Verified 07/08/23 20:35 stay closed codeine AdvReac nausea Verified 07/08/23 20:35 sertraline [From Zoloft] AdvReac serotoin Verified 07/08/23 20:35 syndrome Family History Sister CVA (cerebral vascular accident) Afib Heart disease Liver disease Brother Colon cancer Father Emphysema lung Surgical History History of appendectomy History of carpal tunnel release History of total left knee replacement History of total right knee replacement Hx of cholecystectomy Social History adopted: No housing: assisted living facility current occupational status: disabled pets and animals: No Smoking Status: Never smoker alcohol intake: never substance use type: does not use ROS ROS ED Constitutional Constitutional ED: Reports other Details: Insomnia ; Denies chills or fever(s) Eyes Eyes: Denies change in vision or diplopia ENT ENT ED: Denies rhinorrhea or sore throat Cardiovascular Cardiovascular: Denies chest pain or palpitations Respiratory/Chest Respiratory/Chest: Denies cough or dyspnea Gastrointestinal Gastrointestinal: Denies abdominal pain, diarrhea, nausea or vomiting Genitourinary Genitourinary ED: Denies dysuria or hematuria Musculoskeletal Musculoskeletal: Reports back pain; Denies neck pain Integumentary Denies abscess or rash Neurologic Neurologic: Denies headache(s), paresthesias or weakness Psychiatric Psychiatric: Reports depression; Denies homicidal ideation, suicidal ideation or suicidal thoughts EXAM Physical Exam Const Vital Signs: 07/08/23 20:31 Temperature 98.1 F Temperature Source Temporal Pulse Rate 90 Respiratory Rate 16 Blood Pressure 137/90 H Blood Pressure Mean 105 Pulse Ox 96 Oxygen Delivery Method Room Air Positive well nourished and well developed General Appearance ED: well developed and NAD HEENT Reports moist mucous membranes normocephalic and atraumatic Eyes PERRL and EOMs intact bilaterally General Eye ED: Negative for scleral icterus Neck no lymphadenopathy and supple Resp normal respiratory effort and clear to auscultation bilaterally Cardio no murmurs Rate: regular rate Rhythm: regular rhythm GI non-tender and non-distended Auscultation: normoactive bowel sounds Palpation: soft Back/Spine no CVA tenderness and normal ROM Extremity normal to inspection General Extremety ED: Negative for edema General Extremity: Negative for edema Neuro oriented x3, CN's II-XII intact bilaterally, no sensory deficits noted and gait normal Sensorium / Orientation: alert Motor Exam: strength 5/5 throughout Psych mental status grossly normal, thought process normal, cooperative, speech normal, activity/motor behavior normal, denies hallucinations, denies homicidal ideation and denies suicidal ideation Psych Narrative: Pressured speech, tangential, racing thoughts but illogical Skin Lesions: no lesions Rashes: no rashes MDM MDM MDM Narrative Medical decision making narrative: Patient does seem to be a little manic, unknown if she is doing anything dangerous right now or needing inpatient treatment but will consult social work/crisis. Labs noted she is medically cleared toxicology and alcohol negative. Crisis saw the patient, in comparing her evaluation to prior records, she seems to be at baseline and not necessarily acutely manic or in any danger, we will discharge her to follow-up with her psychiatrist. Lab Data Attestation: I reviewed the patient's lab results. Labs: Laboratory Results - last 24 hr 07/08/23 07/08/23 20:50 22:02 WBC 5.7 RBC 4.01 L Hgb 12.7 Hct 37.9 MCV 94.5 MCH 31.7 MCHC 33.5 RDW Std Deviation 41.8 RDW Coeff of Lindsey 12.1 Plt Count 235 MPV 8.7 Immature Gran % (Auto) 0.400 Neut % (Auto) 63.7 Lymph % (Auto) 22.7 Woodward % (Auto) 12.0 H Eos % (Auto) 0.5 Baso % (Auto) 0.7 Absolute Neuts (auto) 3.6 Absolute Lymphs (auto) 1.29 Nucleated RBC % 0 Sodium 140 Potassium 3.5 Chloride 108 H Carbon Dioxide 26.0 Anion Gap 6 BUN 16 Creatinine 1.32 H Est GFR (MDRD) Af Amer 52 L Est GFR (MDRD) Non-Af 43 L BUN/Creatinine Ratio 12.1 Glucose 125 H Calcium 10.0 Urine Opiates Screen NEGATIVE Urine Methadone Screen NEGATIVE Ur Barbiturates Screen NEGATIVE Ur Phencyclidine Scrn NEGATIVE Ur Amphetamines Screen NEGATIVE MDMA (Ecstasy) Screen NEGATIVE U Benzodiazepines Scrn NEGATIVE Urine Cocaine Screen NEGATIVE U Cannabinoids Screen NEGATIVE Ur Drug Screen Comment Ethyl Alcohol < 3.0 Discharge Plan Triage Chief Complaint: Suicidal ED Provider: Dima Myers Dx/Rx/DC Orders Clinical Impression: Bipolar disorder Instructions: ED Bipolar Disorder Prescriptions: No Action aspirin 81 mg tablet,chewable 81 mg PO DAILY lamotrigine 200 mg tablet 200 mg PO BID amlodipine 5 mg tablet 5 mg PO cyclobenzaprine 10 mg tablet 10 mg PO Q8H PRN ammonium lactate 12 % cream 1 applic topical DAILY calcium polycarbophil [Fiber Laxative (ca polycarbo)] 625 mg tablet 625 mg PO DAILY nystatin 100,000 unit/gram powder 1 applic topical DAILY losartan 25 mg tablet 25 mg PO DAILY lactase 9,000 unit tablet See Rx Instructions PO .COMPLEX PRN (Reason: lactose intolerance) Qty: 360 5RF Rx Instructions: take 5-10 tablets by mouth with meals and/or snacks that contain dairy rabeprazole 20 mg tablet,delayed release (DR/EC) 20 mg PO BID Qty: 60 12RF triamcinolone acetonide 0.1 % cream 1 applic topical cholecalciferol (vitamin D3) 50 mcg (2,000 unit) capsule 50 mcg PO DAILY PRN lidocaine [Salonpas (lidocaine)] 4 % adhesive patch,medicated 1 patch topical DAILY PRN (Reason: pain) Qty: 30 3RF ibandronate 150 mg tablet PO QMONTH rosuvastatin 5 mg tablet PO budesonide 0.25 mg/2 mL suspension for nebulization 0.25 mg inhalation BID levothyroxine [Synthroid] 88 mcg tablet PO gabapentin 600 mg tablet 600 mg PO formoterol fumarate 20 mcg/2 mL solution for nebulization 2 ml inhalation BID hydrocodone-acetaminophen 5-325 mg tablet 1 tab PO Q8H PRN Zyrtec 10 mg capsule 10 mg PO DAILY PRN fluticasone propionate 1 SPRAY spray,suspension 2 spray NASAL DAILY tizanidine 4 mg tablet See Rx Instructions PO .COMPLEX Rx Instructions: 1 tablet in afternoon and 1.5 tablets at bedtime orally; multivitamin 1 EACH tablet 1 ea PO DAILY polyethylene glycol 3350 17 GM packet 17 g PO DAILY albuterol sulfate 1 INHALER inhaler 2 puff inhalation Q6H PRN PRN (Reason: Sob &/Or Wheezing) alum-mag hydroxide-simeth 30 ML suspension 20 ml PO Q8 PRN (Reason: Constipation) diclofenac sodium 1 APPLIC gel 1 applic topical Q6H PRN PRN (Reason: Pain) promethazine 25 MG tablet 25 mg PO Q6H PRN PRN (Reason: Nausea) cyanocobalamin (vitamin B-12) 1,000 mcg/mL solution 1,000 mcg IM Q2W artificial tears solution Drops 1 drp OPHTHALMIC (EYE) PRN PRN (Reason: Dry Eye(S)) acetaminophen [Acetaminophen Extra Strength] 500 mg Tablet 1,000 mg PO Q6H PRN (Reason: Pain) ferrous sulfate 325 mg (65 mg iron) tablet 325 mg PO DAILY meclizine 25 mg capsule 12.5 mg PO Q6H PRN (Reason: Dizziness) clopidogrel [Plavix] 75 mg Tablet 75 mg PO DAILY Calcium 500 with Vitamin D2 500 mg(1,250mg) -200 unit Tablet 1 tab PO BID lamotrigine [Lamictal] 200 mg tablet 300 mg PO QHS hydroxyzine pamoate 25 mg capsule 25 mg PO BID PRN (Reason: anxiety) Qty: 60 0RF Latuda 20 mg tablet 20 mg PO QPM Qty: 30 2RF Rx Instructions: must administer with food (at least 350 calories) Primary Care Provider: Alex Self Referrals: Alex Self MD [Primary Care Provider] - Alex Judd DO [Med Staff - Due Diligence Coordinator] - As soon as possible Disposition Disposition: Home, Self Care
[2023-07-09] MEDS: Acetaminophen 500 MG Tablet 1000 MG PO (00:27)
[2023-07-09 02:59] VITALS: PULSE 78; RESP 16; O2SAT 98
== END 2023-07-09 03:03 | disposition home or self-care (01) ==
PROVIDERS: Emergency Provider Emergency Medicine; PCP Family Medicine; Visit Provider Emergency Medicine
DX: F31.9 Bipolar disorder, unspecified (principal); E78.00 Pure hypercholesterolemia, unspecified; I10 Essential (primary) hypertension; Z79.02 Long term (current) use of antithrombotics/antiplatelets; Z79.82 Long term (current) use of aspirin; Z79.899 Other long term (current) drug therapy
CPT/HCPCS: 80048; 80307; 82077; 85025; 99285

== ENCOUNTER 2023-07-16 18:13 | Emergency (ER) | payer MEDICARE, MEDICAID, SELFPAY ==
[2023-07-16 18:16] VITALS: BP 147/125; PULSE 78; RESP 28; TEMP 36.6; O2SAT 97; BMI 36.1
[2023-07-16 18:23] VITALS: BMI 36.1
--- NOTE | 2023-07-16 19:21 | CT_ITS ---
STUDY: CT BRAIN WITHOUT CONTRAST REASON FOR EXAM: Female, 68 years old. weakness RADIATION DOSAGE (If Supplied By Facility): CTDIvol = ( 44.99 ) mGy, DLP = ( 829.85 ) mGycm TECHNIQUE: Transaxial CT imaging of the brain was performed without administration of intravenous contrast material. Individualized dose optimization techniques were used for this CT. COMPARISON: 04/16/2022 FINDINGS: Normal soft tissue structures. Normal calvarium. There is mild cerebral atrophy with widening of the extra-axial spaces and ventricular dilatation. There are areas of decreased attenuation within the white matter tracts of the supratentorial brain, consistent with microvascular disease changes. Normal basal ganglia and thalami. Normal brainstem. Normal cerebellum. There is no intracranial hemorrhage. There are no findings of an acute ischemic infarction. Normal visualized paranasal sinuses. CT/Brain/Head without Contrast IMPRESSION: Chronic involutional changes of the brain. Electronically Signed: Low Marin MD at 20:26 EDT ,
--- NOTE | 2023-07-16 19:22 | EKG12_ITS ---
Test Reason : NEURO Blood Pressure : / mmHG Vent. Rate : 076 BPM Atrial Rate : 076 BPM P-R Int : 170 ms QRS Dur : 078 ms QT Int : 378 ms P-R-T Axes : 007 009 055 degrees QTc Int : 425 ms Normal sinus rhythm Normal ECG When compared with ECG of 15-FEB-2022 12:31, No significant change was found Confirmed by IRIS JADE MD ([id number]), video effects editor JUVENAL BOWMAN ([id number]) on 07/21/2023 10:26:35 AM Referred By: Confirmed By:IRIS JADE MD
--- NOTE | 2023-07-16 19:36 | RAD_ITS ---
STUDY: X-RAY CHEST REASON FOR EXAM: Female, 68 years old. weakness TECHNIQUE: Single AP portable view of the chest. COMPARISON: 04/16/2022 FINDINGS: Alveolar opacity in the lower left lung consistent with left lower lobe pneumonia. There is no demonstrated pleural abnormality. Normal size heart. Normal mediastinum and cathy. Normal visualized pulmonary arteries. Normal visualized aortic arch and descending thoracic aorta. Normal visualized thoracic spine. Normal visualized ribs, clavicles, and shoulders. There is no demonstrated abnormality of the visualized soft tissue structures of the upper abdomen. RAD/Chest 1 View (Portable) IMPRESSION: Left lower lobe pneumonia. Electronically Signed: Low Marin MD at 20:13 EDT ,
[2023-07-16 19:42] LABS: Mucous, Urine 0 SEEN /hpf (<or=2+); Squamous Epithelial Cells - UA 0 SEEN /hpf (5-10)
[2023-07-16 19:47] LABS: Absolute Lymphocyte Count 1.27 X10^3/uL (0.83-4.51); Absolute Neutrophil Count 3.9 X10^3/uL (2.0-7.7); Basophil# 0.03 X10^3/uL; Basophil% 0.5 % (0-1); Eosinophil# 0.07 X10^3/uL; Eosinophils% 1.2 % (0-5); Hematocrit 38.1 % (37-47); Hemoglobin 12.6 g/dL (12.0-15.0); Lymphocyte # 1.27 X10^3/ul (0.83-4.51); Lymphocyte % 21.2 % (19-41); Mean Corp Hgb Conc 33.1 g/dL (32-36); Mean Corpuscular Hgb 31.6 pg (27.0-32.0); Mean Corpuscular Volume 95.5 fL (81-99); Mean Platelet Vol. 8.4 fl (6.2-12.0); Monocyte# 0.69 X10^3/uL; Monocyte% 11.5 % (0-10); NRBC Flagged by Analyzer 0 % (0-5); Neutrophil # 3.93 X10^3/uL (2.7-7.7); Neutrophil % 65.4 % (47-70); Platelet Count 241 K/mm3 (150-450); RBC Distribution Width CV 11.9 % (11.6-14.6); RBC Distribution Width SD 41.5 fl (35.1-43.9); Red Blood Count 3.99 M/mm3 (4.2-5.4)
[2023-07-16 20:01] LABS: Color, Urine Yellow (Yellow); Glucose, Dipstick Normal (Normal); Ketone-Dipstick Negative (Negative); Leukocyte Esterase-Dipstick 500 /ul (Negative); Nitrite-Dipstick Positive (Negative); Occult Blood-Urine 25 /ul (Negative); Protein-Dipstick 15 mg/dl (Negative); Urine Bilirubin Dipstick Negative (Negative); Urine Clarity Sl. Cloudy (Clear); Urine Urobilinogen Normal (Normal); Urine pH 6.5 (5.0 - 8.0)
[2023-07-16 20:07] LABS: Bacteria 1+ /hpf (None Seen); Red Blood Cells-Urine 0-5 SEEN /hpf (0-5); White Blood Cells 10-25 SEEN /hpf (0-5)
[2023-07-16 20:07] LABS: Anion Gap 4 (5-15); BUN 13 mg/dL (7-18); BUN/Creat Ratio 12.9 RATIO (10-20); Calcium,Total 9.5 mg/dL (8.5-10.1); Chloride 107 mmol/L (98-107); Creatinine, Serum 1.01 mg/dL (0.55-1.02); EST Glomerular Filtration Rate 58 mL/min (>60); Est Glom Filt Rate - Afr Amer 70 mL/min (>60); Estimated Creatinine Clearance 43.33 ml/min; Glucose 96 mg/dL (74-106); Potassium 3.8 mmol/L (3.5-5.1); Sodium Level 140 mmol/L (136-145); Troponin-I HS 6 pg/mL (3.0-54.0)
--- NOTE | 2023-07-16 20:16 | EX.ED.DYSGE1 ---
HPI History of Present Illness Chief Complaint: Neuro S/Sx Narrative Narrative: 8-year-old female presenting with inability to see for about 5 minutes at a time. She states that the nurses at the long term were timing this. She states the reason she could not see it was because her eyes were closed. She has a history of bipolar disorder and schizoaffective disorder. Patient states she does not have any numbness or tingling. She has no difficulty moving her extremities. PFSH [facility] Medical History Anemia Anxiety Anxiety disorder, unspecified Asthma Bipolar 1 disorder Bipolar 1 disorder, depressed Cerebral palsy Diverticulitis Falls Fibromyalgia GERD (gastroesophageal reflux disease) HBP (high blood pressure) Hypercholesteremia Hyperlipidemia Hypertension Hypothyroid Irritable bowel Kyphosis Left rotator cuff tear Left rotator cuff tear Migraine Peripheral vascular disease Primary osteoarthritis, left shoulder Schizoaffective disorder Home Medications fluticasone propionate 50 mcg/actuation nasal spray,suspension 2 spray NASAL DAILY congestion 01/03/16 [History Last Taken 03/24/21] aspirin 81 mg chewable tablet 81 mg PO DAILY heart health 12/16/17 [History Last Taken 03/24/21] multivitamin 1 ea PO DAILY supplement 12/02/18 [History Last Taken 03/24/21] polyethylene glycol 3350 17 gram oral powder packet 17 g PO DAILY 06/22/19 [History Last Taken 03/22/21] albuterol sulfate 90 mcg/actuation aerosol inhaler 2 puff inhalation Q6H PRN PRN Sob &/Or Wheezing 04/16/20 [History Last Taken 11/05/20] aluminum-mag hydroxide-simethicone 400 mg-400 mg-40 mg/5 mL oral susp 20 ml PO Q8 PRN Constipation 04/16/20 [History Last Taken 03/24/21] diclofenac sodium 1 % topical gel 1 applic topical Q6H PRN PRN Pain 04/16/20 [History Last Taken 03/24/21] promethazine 25 mg tablet 25 mg PO Q6H PRN PRN Nausea 01/07/21 [History Last Taken 03/23/21] acetaminophen 500 mg tablet (Acetaminophen Extra Strength) 1,000 mg PO Q6H PRN Pain 09/18/21 [History Last Taken Unknown] artificial tears solution eye drops 1 drp ophthalmic (eye) PRN PRN Dry Eye(S) 09/18/21 [History Last Taken Unknown] lamotrigine 200 mg tablet 200 mg PO BID 01/14/22 [History Last Taken Unknown] clopidogrel 75 mg tablet (Plavix) 75 mg PO DAILY 02/15/22 [History Last Taken Unknown] calcium carb-ergocalciferol (vit D2) 500 mg (1,250 mg)-200 unit tablet 1 tab PO BID 04/16/22 [History Last Taken Unknown] amlodipine 5 mg tablet 5 mg PO 06/03/22 [History Last Taken Unknown] ammonium lactate 12 % topical cream 1 applic topical DAILY 06/17/22 [History Last Taken Unknown] calcium polycarbophil 625 mg tablet (Fiber Laxative (calcium polycarbophil)) 625 mg PO DAILY 06/17/22 [History Last Taken Unknown] nystatin 100,000 unit/gram topical powder 1 applic topical DAILY 06/17/22 [History Last Taken Unknown] cyclobenzaprine 10 mg tablet 10 mg PO Q8H PRN 09/07/22 [History Last Taken Unknown] ferrous sulfate 325 mg (65 mg iron) tablet 325 mg PO DAILY 09/07/22 [History Last Taken Unknown] lamotrigine 200 mg tablet (Lamictal) 300 mg PO QHS 09/07/22 [History Last Taken Unknown] losartan 25 mg tablet 25 mg PO DAILY 09/07/22 [History Last Taken Unknown] tizanidine 4 mg tablet See Rx Instructions PO .COMPLEX muscle relaxer 09/07/22 [History Last Taken Unknown] meclizine 25 mg capsule 12.5 mg PO Q6H PRN Dizziness 10/07/22 [History Last Taken Unknown] lactase 9,000 unit tablet See Rx Instructions PO .COMPLEX PRN lactose intolerance #360 tabs 11/24/22 [Rx Last Taken Unknown] rabeprazole 20 mg tablet,delayed release 20 mg PO BID #60 tabs 11/24/22 [Rx Last Taken Unknown] cholecalciferol (vitamin D3) 50 mcg (2,000 unit) capsule 50 mcg PO DAILY PRN 12/03/22 [History Last Taken Unknown] triamcinolone acetonide 0.1 % topical cream 1 applic topical 12/03/22 [History Last Taken Unknown] lidocaine 4 % topical patch (Salonpas (lidocaine)) 1 patch topical DAILY PRN pain #30 ea 02/01/23 [Rx Last Taken Unknown] hydroxyzine pamoate 25 mg capsule 25 mg PO BID PRN anxiety #60 caps 02/04/23 [Rx Last Taken Unknown] ibandronate 150 mg tablet mg PO QMONTH 04/29/23 [History Last Taken Unknown] budesonide 0.25 mg/2 mL suspension for nebulization 0.25 mg inhalation BID 05/31/23 [History Last Taken Unknown] cyanocobalamin (vitamin B-12) 1,000 mcg/mL injection solution 1,000 mcg IM Q2W supplement 05/31/23 [History Last Taken Unknown] gabapentin 600 mg tablet 600 mg PO 05/31/23 [History Last Taken Unknown] levothyroxine 88 mcg tablet (Synthroid) mcg PO 05/31/23 [History Last Taken Unknown] rosuvastatin 5 mg tablet mg PO 05/31/23 [History Last Taken Unknown] cetirizine 10 mg capsule (Zyrtec) 10 mg PO DAILY PRN 06/16/23 [History Last Taken Unknown] formoterol fumarate 20 mcg/2 mL solution for nebulization 2 ml inhalation BID 06/16/23 [History Last Taken Unknown] hydrocodone-acetaminophen 5-325mg 5mg-325mg 1 tab PO Q8H PRN 06/16/23 [History Last Taken Unknown] Latuda 20 mg tablet (lurasidone) 20 mg PO QPM #30 tabs 07/08/23 [Rx Last Taken Unknown] azithromycin 250 mg tablet 250 mg PO DAILY #4 TABLETS 07/16/23 [Rx Last Taken Unknown] cefdinir 300 mg capsule 300 mg PO BID 10 days #20 caps 07/16/23 [Rx Last Taken Unknown] Allergy/AdvReac Type Severity Reaction Status Date / Time lithium Allergy Mild Vomiting Verified 07/16/23 18:30 propantheline Allergy Unknown unknown Verified 07/16/23 18:30 ziprasidone [From Geodon] Allergy Unknown unknown Verified 07/16/23 18:30 aspartame Allergy Itching Verified 07/16/23 18:30 carrot Allergy Food Verified 07/16/23 18:30 Allergy ciclesonide [From [place]vesco] Allergy Shortness Verified 07/16/23 18:30 of breath diphenhydramine Allergy Other Verified 07/16/23 18:30 [From Benadryl] diphenhydramine HCl Allergy Rash Verified 07/16/23 18:30 [From Benadryl] imipramine Allergy Other Verified 07/16/23 18:30 levofloxacin [From Levaquin] Allergy Itching Verified 07/16/23 18:30 onabotulinumtoxinA Allergy Itching Verified 07/16/23 18:30 [From Botox] Penicillins Allergy Rash Verified 07/16/23 18:30 Seasonal Allergies: Uncoded Allergy NEEDS Verified 07/08/23 20:35 [environmental] FOLLOW-UP Sulfa (Sulfonamide Allergy NEEDS Verified 07/16/23 18:30 Antibiotics) FOLLOW-UP sulfamethoxazole Allergy NEEDS Verified 07/16/23 18:30 [From Bactrim] FOLLOW-UP topiramate [From Topamax] Allergy Other Verified 07/16/23 18:30 trimethoprim [From Bactrim] Allergy NEEDS Verified 07/16/23 18:30 FOLLOW-UP baclofen AdvReac Severe vomitting Verified 07/16/23 18:30 erythromycin base AdvReac Severe chest pain Verified 07/16/23 18:30 fentanyl AdvReac Severe Vomiting Verified 07/16/23 18:30 lubiprostone [From Amitiza] AdvReac Severe Vomiting Verified 07/16/23 18:30 ondansetron [From Zofran] AdvReac Severe Vomiting Verified 07/16/23 18:30 oxycodone AdvReac Severe vomitting Verified 07/16/23 18:30 oxymorphone AdvReac Severe ABD pain Verified 07/16/23 18:30 and vomiting pregabalin [From Lyrica] AdvReac Severe eyes would Verified 07/16/23 18:30 stay closed codeine AdvReac nausea Verified 07/16/23 18:30 sertraline [From Zoloft] AdvReac serotoin Verified 07/16/23 18:30 syndrome Family History Sister CVA (cerebral vascular accident) Afib Heart disease Liver disease Brother Colon cancer Father Emphysema lung Surgical History History of appendectomy History of carpal tunnel release History of total left knee replacement History of total right knee replacement Hx of cholecystectomy Social History adopted: No housing: assisted living facility current occupational status: disabled pets and animals: No Smoking Status: Never smoker alcohol intake: never substance use type: does not use EXAM Physical Exam Const Vital Signs: 07/16/23 18:16 07/16/23 20:40 Temperature 98 F Temperature Source Oral Pulse Rate 78 Respiratory Rate 28 H 18 Blood Pressure 147/125 H Blood Pressure Mean 132 Pulse Ox 97 97 Oxygen Delivery Method Room Air Positive well nourished General Appearance ED: NAD HEENT Reports moist mucous membranes Eyes PERRL and EOMs intact bilaterally Chest Wall inspection of chest normal and palpation of chest normal Resp normal respiratory effort and clear to auscultation bilaterally Auscultation: Negative for rales, rhonchi or wheezes Cardio regular rate and regular rhythm GI normal to inspection, nondistended, normoactive bowel sounds Back/Spine no CVA tenderness Extremity normal to inspection Neuro oriented x3, CN's II-XII intact bilaterally and no sensory deficits noted Neuro Narrative: Night stroke scale score of 0 Motor Exam: strength 5/5 throughout Psych mental status grossly normal Skin no rashes or lesions noted and no wounds MDM MDM MDM Narrative Medical decision making narrative: Presenting with initial history of stating she could not see for 5 minutes at a time but then stated to me that she had her eyes closed. She opened her eyes and EMS when the son hit her eyes and she states she could see again. Patient does have a very of bipolar disorder and schizoaffective disorder. I did not find any focal neurologic deficits or lateralizing signs or symptoms. Control does include TIA however this is unlikely given her history and her exam. We will obtain basic lab work-up to rule out dehydration or electrolyte normalities anemia or UTI versus pneumonia. Lab work is all unremarkable. EKG sinus rhythm without evidence of ischemia my interpretation and high-sensitivity troponin is 6. Urinalysis consistent with UTI. Chest x-ray my interpretation also shows lower lobe pneumonia. Patient's white count is normal and patient's vital signs are stable. I spoke with Dr. Self her primary care physician and he recommended sending her home on azithromycin and Omnicef. Patient was amenable to this. CT brain was negative. At this point patient will be discharged back to her facility stable condition. Impression: 1. UTI 2. Pneumonia Lab Data Labs: Laboratory Results - last 24 hr 07/16/23 07/16/23 19:26 19:36 WBC 6.0 RBC 3.99 L Hgb 12.6 Hct 38.1 MCV 95.5 MCH 31.6 MCHC 33.1 RDW Std Deviation 41.5 RDW Coeff of Lindsey 11.9 Plt Count 241 MPV 8.4 Immature Gran % (Auto) 0.200 Neut % (Auto) 65.4 Lymph % (Auto) 21.2 Lincoln % (Auto) 11.5 H Eos % (Auto) 1.2 Baso % (Auto) 0.5 Absolute Neuts (auto) 3.9 Absolute Lymphs (auto) 1.27 Nucleated RBC % 0 Sodium 140 Potassium 3.8 Chloride 107 Carbon Dioxide 29.0 Anion Gap 4 L BUN 13 Creatinine 1.01 Estim Creat Clear Calc 43.33 Est GFR (MDRD) Af Amer 70 Est GFR (MDRD) Non-Af 58 L BUN/Creatinine Ratio 12.9 Glucose 96 Calcium 9.5 Troponin I High Sens 6 Urine Color Yellow Urine Clarity Sl. Cloudy Urine pH 6.5 Ur Specific [place] 1.010 Urine Protein 15 H Urine Glucose (UA) Normal Urine Ketones Negative Urine Occult Blood 25 H Urine Nitrite Positive H Urine Bilirubin Negative Urine Urobilinogen Normal Ur Leukocyte Esterase 500 H Urine RBC 0-5 SEEN Urine WBC 10-25 SEEN Ur Squamous Epith Cells 0 SEEN Urine Bacteria 1+ Urine Mucus 0 SEEN Radiography Diagnostic Testing: Clinical Impression(s) from Imaging Studies Brain CT 07/16/23 19:21 IMPRESSION: Chronic involutional changes of the brain. Electronically Signed: Low Marin MD at 20:26 EDT , Chest X-Ray 07/16/23 19:36 IMPRESSION: Left lower lobe pneumonia. Electronically Signed: Low Marin MD at 20:13 EDT , Discharge Plan Triage Chief Complaint: Neuro S/Sx ED Provider: Eros Pinto Dx/Rx/DC Orders Instructions: ED Pneumonia (Adult), ED Cystitis Female Adult Prescriptions: New cefdinir 300 mg capsule 300 mg PO BID 10 Days Qty: 20 0RF azithromycin 250 mg tablet 250 mg PO DAILY Qty: 4 0RF No Action aspirin 81 mg tablet,chewable 81 mg PO DAILY lamotrigine 200 mg tablet 200 mg PO BID amlodipine 5 mg tablet 5 mg PO cyclobenzaprine 10 mg tablet 10 mg PO Q8H PRN ammonium lactate 12 % cream 1 applic topical DAILY calcium polycarbophil [Fiber Laxative (ca polycarbo)] 625 mg tablet 625 mg PO DAILY nystatin 100,000 unit/gram powder 1 applic topical DAILY losartan 25 mg tablet 25 mg PO DAILY lactase 9,000 unit tablet See Rx Instructions PO .COMPLEX PRN (Reason: lactose intolerance) Qty: 360 5RF Rx Instructions: take 5-10 tablets by mouth with meals and/or snacks that contain dairy rabeprazole 20 mg tablet,delayed release (DR/EC) 20 mg PO BID Qty: 60 12RF triamcinolone acetonide 0.1 % cream 1 applic topical cholecalciferol (vitamin D3) 50 mcg (2,000 unit) capsule 50 mcg PO DAILY PRN lidocaine [Salonpas (lidocaine)] 4 % adhesive patch,medicated 1 patch topical DAILY PRN (Reason: pain) Qty: 30 3RF ibandronate 150 mg tablet PO QMONTH rosuvastatin 5 mg tablet PO budesonide 0.25 mg/2 mL suspension for nebulization 0.25 mg inhalation BID levothyroxine [Synthroid] 88 mcg tablet PO gabapentin 600 mg tablet 600 mg PO formoterol fumarate 20 mcg/2 mL solution for nebulization 2 ml inhalation BID hydrocodone-acetaminophen 5-325 mg tablet 1 tab PO Q8H PRN Zyrtec 10 mg capsule 10 mg PO DAILY PRN fluticasone propionate 1 SPRAY spray,suspension 2 spray NASAL DAILY tizanidine 4 mg tablet See Rx Instructions PO .COMPLEX Rx Instructions: 1 tablet in afternoon and 1.5 tablets at bedtime orally; multivitamin 1 EACH tablet 1 ea PO DAILY polyethylene glycol 3350 17 GM packet 17 g PO DAILY albuterol sulfate 1 INHALER inhaler 2 puff inhalation Q6H PRN PRN (Reason: Sob &/Or Wheezing) alum-mag hydroxide-simeth 30 ML suspension 20 ml PO Q8 PRN (Reason: Constipation) diclofenac sodium 1 APPLIC gel 1 applic topical Q6H PRN PRN (Reason: Pain) promethazine 25 MG tablet 25 mg PO Q6H PRN PRN (Reason: Nausea) cyanocobalamin (vitamin B-12) 1,000 mcg/mL solution 1,000 mcg IM Q2W artificial tears solution Drops 1 drp OPHTHALMIC (EYE) PRN PRN (Reason: Dry Eye(S)) acetaminophen [Acetaminophen Extra Strength] 500 mg Tablet 1,000 mg PO Q6H PRN (Reason: Pain) ferrous sulfate 325 mg (65 mg iron) tablet 325 mg PO DAILY meclizine 25 mg capsule 12.5 mg PO Q6H PRN (Reason: Dizziness) clopidogrel [Plavix] 75 mg Tablet 75 mg PO DAILY Calcium 500 with Vitamin D2 500 mg(1,250mg) -200 unit Tablet 1 tab PO BID lamotrigine [Lamictal] 200 mg tablet 300 mg PO QHS hydroxyzine pamoate 25 mg capsule 25 mg PO BID PRN (Reason: anxiety) Qty: 60 0RF Latuda 20 mg tablet 20 mg PO QPM Qty: 30 2RF Rx Instructions: must administer with food (at least 350 calories) Primary Care Provider: Alex Self Referrals: Alex Self MD [Primary Care Provider] - Disposition Disposition: Home, Self Care Discharge Date/Time: 07/16/23 21:54
[2023-07-16 20:40] VITALS: RESP 18; O2SAT 97
[2023-07-16] MEDS: Cefdinir 300 MG Capsule PO (21:52)
[2023-07-16] MEDS: Azithromycin 250 MG Tablet 500 MG PO (21:52)
== END 2023-07-16 21:54 | disposition home or self-care (01) ==
PROVIDERS: Emergency Provider Student in an Organized Health Care Education/Training Program; PCP Family Medicine; Visit Provider Student in an Organized Health Care Education/Training Program
DX: J18.9 Pneumonia, unspecified organism (principal); F25.9 Schizoaffective disorder, unspecified; F31.9 Bipolar disorder, unspecified; E78.00 Pure hypercholesterolemia, unspecified; N39.0 Urinary tract infection, site not specified; I10 Essential (primary) hypertension; H54.7 Unspecified visual loss; J45.909 Unspecified asthma, uncomplicated; Z79.899 Other long term (current) drug therapy
CPT/HCPCS: 70450; 71045; 80048; 81001; 84484; 85025; 87428; 93005; 99285

== ENCOUNTER → 2023-08-15 | Outpatient (REF) | payer MEDICARE, MEDICAID, SELFPAY ==
[2023-08-16 08:25] LABS: Color, Urine Straw (Yellow); Glucose, Dipstick Normal (Normal); Ketone-Dipstick Negative (Negative); Leukocyte Esterase-Dipstick Negative /ul (Negative); Nitrite-Dipstick Negative (Negative); Occult Blood-Urine Negative /ul (Negative); Protein-Dipstick Negative (Negative); Specific Gravity, Urine 1.005 (1.002-1.030); Urine Bilirubin Dipstick Negative (Negative); Urine Clarity Clear (Clear); Urine Urobilinogen Normal (Normal)
== END ==
LOC: OLS.SWAL 21:50
PROVIDERS: PCP Family Medicine; Visit Provider Family Medicine
DX: N39.0 Urinary tract infection, site not specified (principal)
CPT/HCPCS: 81002; 87086

== ENCOUNTER → 2023-09-16 | Outpatient (REF) | payer MEDICARE, MEDICAID, SELFPAY ==
[2023-09-16 08:20] LABS: Mucous, Urine 0 SEEN /hpf (<or=2+); Red Blood Cells-Urine 0 SEEN /hpf (0-5); Squamous Epithelial Cells - UA 0 SEEN /hpf (5-10)
[2023-09-16 08:34] LABS: Hematocrit 41.3 % (37-47); Hemoglobin 13.5 g/dL (12.0-15.0); Mean Corp Hgb Conc 32.7 g/dL (32-36); Mean Corpuscular Hgb 31.9 pg (27.0-32.0); Mean Corpuscular Volume 97.6 fL (81-99); Mean Platelet Vol. 8.2 fl (6.2-12.0); Platelet Count 320 K/mm3 (150-450); RBC Distribution Width CV 13.2 % (11.6-14.6); RBC Distribution Width SD 47.1 fl (35.1-43.9); Red Blood Count 4.23 M/mm3 (4.2-5.4); White Blood Count 5.9 K/mm3 (4.4-11.0)
[2023-09-16 08:35] LABS: Color, Urine Yellow (Yellow); Glucose, Dipstick Normal (Normal); Ketone-Dipstick Negative (Negative); Leukocyte Esterase-Dipstick 100 /ul (Negative); Nitrite-Dipstick Negative (Negative); Occult Blood-Urine 10 /ul (Negative); Protein-Dipstick 15 mg/dl (Negative); Urine Bilirubin Dipstick Negative (Negative); Urine Clarity Clear (Clear); Urine Urobilinogen Normal (Normal); Urine pH 6.5 (5.0 - 8.0)
[2023-09-16 08:44] LABS: White Blood Cells 0-5 SEEN /hpf (0-5)
[2023-09-16 08:45] LABS: Bacteria RARE /hpf (None Seen)
[2023-09-16 08:51] LABS: Vitamin B12 982 pg/mL (211-911)
[2023-09-16 08:58] LABS: AST(SGOT) 19 U/L (15-37); Alanine Aminotransfer ALT/SGPT 30 U/L (13-56); Albumin, Serum 3.5 g/dL (3.2-5.0); Alkaline Phosphatase 114 U/L (45-117); Anion Gap 6 (5-15); BUN 9 mg/dL (7-18); BUN/Creat Ratio 9.1 RATIO (10-20); Calcium,Total 9.3 mg/dL (8.5-10.1); Chloride 106 mmol/L (98-107); Cholesterol 163 mg/dL (200); Creatinine, Serum 0.98 mg/dL (0.55-1.02); EST Glomerular Filtration Rate 60 mL/min (>60); Est Glom Filt Rate - Afr Amer 73 mL/min (>60); Ferritin 85 ng/mL (8-252); Free T3 2.3 pg/mL (2.18-3.98); Globulin 3.6 g/dL (2.2-4.2); Glucose 85 mg/dL (74-106); High Density Lipoprotein 81 mg/dL; Potassium 3.9 mmol/L (3.5-5.1); Protein, Total 7.1 g/dL (6.4-8.2); Sodium Level 140 mmol/L (136-145); T4 Free Direct 1.54 ng/dL (0.76-1.46); Thyroid Stim Hormone (TSH) 8.06 uIU/mL (0.358-3.74); Triglycerides 68 mg/dL; Very Low Density Lipoprotein 14 mg/dL (5-40)
== END ==
LOC: OLS.SWAL 05:00
PROVIDERS: PCP Family Medicine
DX: D64.9 Anemia, unspecified (principal); E78.00 Pure hypercholesterolemia, unspecified; E03.9 Hypothyroidism, unspecified; M81.0 Age-related osteoporosis without current pathological fracture; Z86.2 Personal history of diseases of the blood and blood-forming organs and certain disorders involving the immune mechanism; Z79.899 Other long term (current) drug therapy
CPT/HCPCS: 36415; 80053; 80061; 81001; 82306; 82607; 82728; 84439; 84443; 84481; 85027

== ENCOUNTER → 2023-09-29 | Outpatient (REF) | payer MEDICARE, MEDICAID, SELFPAY ==
[2023-10-01 13:07] LABS: Lamotrigine (Lamictal) Level 8.6 ug/mL (2.0-20.0)
== END ==
LOC: OLS.SWAL 07:20
PROVIDERS: PCP Family Medicine
DX: F31.9 Bipolar disorder, unspecified (principal)
CPT/HCPCS: 36415; 82542

== ENCOUNTER 2023-12-07 10:53 | Day surgery (SDC) | payer MEDICARE, MEDICAID, SELFPAY ==
--- NOTE | 2023-12-07 | IMM_PTH ---
PATHOLOGY RESULTS PATIENT: STEVE FAGAN LOC: EN U#:[id number] AGE/SX: 68/F ROOM: RE12/07/[address]: Dr. Santiago Canas DO : 1955 BED: DIS: 12/07/2023 SPEC #: [id number] RECD: 12/08/23 13:47 STATUS: SOUCourtney REQ #: [id number] GABY: 12/07/23 00:[address]: Santiago Canas DEPT: IMMUNOHISTOCHEMISTRY RECD BY: [place] ENTERED: 12/08/23 13:47 SP TYPE: IMMUNO OTHR DR: Dr. Alex Self MD Tissues: Stomach, NOS Procedures: H Pylori (initial) [facility]YS[facility] [address] [address] SPECIMEN INFORMATION: Tissue Source: B - Gastric body Clinical Info: GERD, lactose intolerance, irritable bowel, family history colon cancer Specimen Number: [id number] CPT code: 23398 METHODOLOGY: Deparaffinized sections of prefer/formalin-fixed tissue or PAP/DQ stained slides are incubated with monoclonal/polyclonal antibodies/oligonucleotide probes. Localization is made via biotin free immunoperoxidase method. Appropriate controls are performed and reacted as expected. Results on target cell population are indicated in the following table: RESULTS: ANTIBODY / CLONE RESULT Block B H Pylori (polyclonal) negative These tests were developed and their performance characteristics determined by [facility]. They may not have been cleared or approved by the U.S. Food and Drug Administration. The FDA has determined that such clearance or approval is not necessary. The above immunohistochemical/dualISH markers are ordered and reviewed by the Pathologist. INTERPRETATION: B. Gastric body, biopsy: Negative for Helicobacter pylori organisms. AM:crystal 12/09/2023
[2023-12-07 11:26] VITALS: BP 131/74; PULSE 83; RESP 18; TEMP 37; O2SAT 98; BMI 34.4
[2023-12-07] MEDS: Lactated Ringers 1,000 ML 15 ML IV (11:36)
--- NOTE | 2023-12-07 11:59 | PCM.HP.BLA ---
History and Physical Date of Admission: 12/07/23 68 F who presents to the office today for Prior GI LV 9.. for management of anemia, weight loss, N/V, constipation, BRBPR (resolved), Heartburn (improving). Unable to tolerate omeprazole, esomeprazole, protonix, Pepcid or sucralfate r/t migraines/stomach pain. Recommend surgical management of reflux, does not want to pursue this. ? Colonoscopy 11.05.20 diverticulosis; internal hemorrhoids. ? EGD 11.19.2021 Grade 2 esophagitis; gastritis with antral erosions; duodenitis *BGI established 08.11.22 previously established with GI in [place]. FH brother colon cancer in 60s. continue MiraLAX and Metamucil. OV 11.24.22 requesting lactase prescription for lactose intolerance. Taking 5-10 lactase pills per meal with dairy. Currently taking Protonix BID but continues to have acid reflux. Admits to increased stress which increases reflux and emesis. OV 12.. she continues to have N/V and abdominal cramping. Continues with fiberlax; she started [place] and has been having constipation since. ROS Const Constitutional: Positive for fatigue ENT ENT: No difficulty swallowing Gastro GI: Positive for abdominal pain, bloating, change in bowel habits, heartburn, excessive flatus, nausea/dyspepsia and vomiting; No belching, change in stool character, coffee ground emesis, constipation, cramping, diarrhea, difficulty swallowing, feeling full early, incontinent of stools, Vomiting blood/hematemesis, Blood in stool, loose stools, Black,tarry stools, pain with swallowing or other Musc Musculoskeletal: Positive for abnormal gait, joint pain, back pain, joint swelling, numbness, stiffness, tingling and Arthritis Skin Skin: No yellowing of the eye or itchy eyes Neuro Neurology: Positive for abnormal gait, numbness and tingling Psych Psychiatric: Positive for anxiety and Positive for depression Endo Endocrine: Positive for fatigue Aller/Imm Allergy/Immunologic: No itchy eyes Kendrick/Lymp Hematologic/Lymphatic: No easy bleeding or easy bruising Exam Const General: cooperative and comfortable Orientation: alert, awake and oriented x3 Other: talkative, mood is good Quality Reporting Tobacco Screening ([facility] 138) Smoking Status: Never smoker Assessment and Plan Assessment and Plan (1) GERD (gastroesophageal reflux disease): Status: Chronic Plan: Patient says that she has an allergy to most proton pump inhibitors but she is still experiencing a lot of reflux because she is not on current medicines for reflux disease. She is also having some nausea and intermittent vomiting. Concerned that she may have elements of gastroparesis. She will need a gastric emptying study. Also because she is off PPI therapy will need to assess her upper GI tract for esophagitis, gastritis with duodenitis and also peptic ulcer disease possibly secondary to H. pylori. (2) Lactose intolerance: Status: Chronic Plan: Continue Lactaid pills as needed (3) Irritable bowel: Status: Chronic Plan: . She has irritable bowel syndrome with constipation predominance. We stressed to her that she should take her MiraLAX every day basis because she is.. We told her to go avoid Miralax with any lactose-containing products. (4) FH: colon cancer: Status: Acute Plan: She will need a repeat colonoscopy. As she is only 3-year recall due to strong family history of colon cancer and personal history of adenomatous polyps. I have examined the patient and the H&P has been reviewed. There are no clinical changes since date of exam.
--- NOTE | 2023-12-07 12:00 | COLBX_PTH ---
PATHOLOGY RESULTS PATIENT: STEVE FAGAN LOC: EN U#:[id number] AGE/SX: 68/F ROOM: RE12/07/[address]: Dr. Santiago Canas DO : 1955 BED: DIS: 12/07/2023 SPEC #: [id number] RECD: 12/08/23 10:00 STATUS: FOX JOSE #: [id number] GABY: 12/07/23 12:[address]: Santiago Canas DEPT: SURGICAL PATHOLOGY RECD BY: Marge Mathews ENTERED: 12/08/23 10:01 SP TYPE: COLON BX OTHR DR: Dr. Alex Self MD Tissues: Gastric mucous membrane Gastric mucous membrane Sigmoid colon biopsy Procedures: Special Stain Group I Surgery Specimen Level IV GMS Stain (control) HEADER OPERATION: Colonoscopy, EGD, biopsy, polypectomy PRE-OP DIAGNOSIS: GERD, lactose intolerance, irritable bowel, colon cancer TISSUE SUBMITTED: A - Gastric antral polyp, B - Gastric body biopsy, C - Sigmoid polyp MICROSCOPIC DIAGNOSIS A. Gastric antral polyp, biopsy: Hyperplastic polyp, inflamed. Fungal organisms consistent with Alexandria species. See comment. B. Gastric body, biopsy: Moderate chronic gastritis with focal active gastritis. See comment. C. Sigmoid colon polyp, biopsy: Tubular adenoma. AM:crystal 12/09/2023 COMMENT A. GMS stain with matched control was used in the evaluation of this case. B. The results of immunohistochemistry for Helicobacter pylori will be reported separately ([id number]). MICROSCOPIC DESCRIPTION Slides are reviewed. GROSS DESCRIPTION A - Received in fixative is one container labeled with the patient's name and designated gastric antral polyp. The specimen consists of multiple irregular fragments of light howell soft tissue that in aggregate measure 1.0 x 0.5 x 0.1 cm. The specimen is totally submitted in one cassette. B - Received in fixative is one container labeled with the patient's name and designated gastric body biopsy. The specimen consists of one irregular fragment of light howell soft tissue that measures 0.5 x 0.4 x 0.1 cm. The specimen is totally submitted in one cassette. C - Received in fixative is one container labeled with the patient's name and designated sigmoid polyp. The specimen consists of a pink-red polyp measuring 1.0 x 1.0 x 0.9 cm. The presumed base is inked. The polyp is serially sectioned and submitted entirely in one cassette. / SJ:rg 12/08/2023 TC:2 CPT: 25359 x3, 00068
[2023-12-07 12:46] VITALS: BP 131/74; BP 137/89; PULSE 82; RESP 16; TEMP 37; O2SAT 100
--- NOTE | 2023-12-07 12:48 | OP.EGD_ITS ---
Patient Name: Paz Rosales Procedure Date: 12/07/2023 12:01 PM Date of : 1955 Age: 68 Procedure: Upper GI endoscopy Indications: Epigastric abdominal pain, Dysphagia Providers: Santiago Canas DO Medicines: Monitored Anesthesia Care Patient Profile: This is a 68 year old female. Refer to note in patient chart for documentation of history and physical. Patient has symptoms. Complications: No immediate complications. Procedure: Pre-Anesthesia Assessment: - Prior to the procedure, a History and Physical was performed, and patient medications and allergies were reviewed. The patient is competent. The risks and benefits of the procedure and the sedation options and risks were discussed with the patient. All questions were answered and informed consent was obtained. Patient identification and proposed procedure were verified by the physician in the pre-procedure area. Mental Status Examination: alert and oriented. Airway Examination: normal oropharyngeal airway and neck mobility. Respiratory Examination: clear to auscultation. CV Examination: normal. Prophylactic Antibiotics: The patient does not require prophylactic antibiotics. Prior Anticoagulants: The patient has taken no anticoagulant or antiplatelet agents. ASA Grade Assessment: II - A patient with mild systemic disease. After reviewing the risks and benefits, the patient was deemed in satisfactory condition to undergo the procedure. The anesthesia plan was to use monitored anesthesia care (MAC). Immediately prior to administration of medications, the patient was re-assessed for adequacy to receive sedatives. The heart rate, respiratory rate, oxygen saturations, blood pressure, adequacy of pulmonary ventilation, and response to care were monitored throughout the procedure. The physical status of the patient was re-assessed after the procedure. After obtaining informed consent, the endoscope was passed under direct vision. Throughout the procedure, the patient's blood pressure, pulse, and oxygen saturations were monitored continuously. The Colonoscope was introduced through the mouth, and advanced to the second part of duodenum. The upper GI endoscopy was accomplished without difficulty. The patient tolerated the procedure well. Scope In: 12:16:16 PM Scope Out: 12:22:08 PM Total Procedure Duration Time 0 hours 5 minutes 52 seconds Findings: A moderate Schatzki ring was found at the gastroesophageal junction. A guidewire was placed and the scope was withdrawn. Dilation was performed with a Savary dilator with no resistance at 45 Fr. The dilation site was examined and showed moderate improvement in luminal narrowing. Estimated blood loss was minimal. A large hiatal hernia was present. Diffuse moderate inflammation characterized by congestion (edema), erosions, erythema and linear erosions was found in the entire examined stomach. Biopsies were taken with a cold forceps for histology. Verification of patient identification for the specimen was done. Estimated blood loss was minimal. Biopsies were taken with a cold forceps for Helicobacter pylori testing. Verification of patient identification for the specimen was done. Estimated blood loss was minimal. A single 10 mm sessile polyp with no bleeding and no stigmata of recent bleeding was found in the gastric antrum. The polyp was removed with a saline injection-lift technique using a hot snare. Resection and retrieval were complete. Verification of patient identification for the specimen was done. Estimated blood loss was minimal. No gross lesions were noted in the first portion of the duodenum. Impression: - Moderate Schatzki ring. Dilated. - Large hiatal hernia. - Chronic gastritis. Biopsied. - A single gastric polyp. Resected and retrieved. - No gross lesions in the first portion of the duodenum. Recommendation: - Discharge patient to home. - Resume previous diet. - Continue present medications. - Await pathology results. - Repeat upper endoscopy in 3 months for surveillance. Procedure Code(s): --- Professional --- 74352, Esophagogastroduodenoscopy, flexible, transoral; with removal of tumor(s), polyp(s), or other lesion(s) by snare technique 19492, Esophagogastroduodenoscopy, flexible, transoral; with insertion of guide wire followed by passage of dilator(s) through esophagus over guide wire 11150, 59, Esophagogastroduodenoscopy, flexible, transoral; with biopsy, single or multiple 72649, 59,51, Esophagogastroduodenoscopy, flexible, transoral; with directed submucosal injection(s), any substance CPT copyright 2021 [employer]. All rights reserved. The codes documented in this report are preliminary and upon service writer review may be revised to meet current compliance requirements. Santiago Canas DO 12/07/2023 12:48:26 PM This report has been signed electronically. Number of Addenda: 0 Note Initiated On: 12/07/2023 12:01 PM
--- NOTE | 2023-12-07 12:49 | OP.CCLET_ITS ---
12/07/2023 Alex Self Re : Upper GI endoscopy procedure for Paz Rosales Dear Aramis This procedure was performed on Thursday, December 07, 2023. My impressions and recommendations are as follows: Impressions : - Moderate Schatzki ring. Dilated. - Large hiatal hernia. - Chronic gastritis. Biopsied. - A single gastric polyp. Resected and retrieved. - No gross lesions in the first portion of the duodenum. Recommendations : - Discharge patient to home. - Resume previous diet. - Continue present medications. - Await pathology results. - Repeat upper endoscopy in 3 months for surveillance. My findings are described in the full procedure note, which is enclosed. If I can be of further assistance, please feel free to contact me at . Sincerely, Santiago Canas, 12/07/2023 12:48:26 PM This report has been signed electronically.
[2023-12-07 12:50] VITALS: BP 130/111; BP 131/74; PULSE 82; RESP 16; O2SAT 100
--- NOTE | 2023-12-07 12:51 | OP.CCLET_ITS ---
12/07/2023 Alex Self Re : Colonoscopy procedure for Paz Rosales Dear Aramis This procedure was performed on Thursday, December 07, 2023. My impressions and recommendations are as follows: Impressions : - One 19 mm polyp in the sigmoid colon, removed using injection-lift and a hot snare. Resected and retrieved. - Diverticulosis in the recto-sigmoid colon, in the sigmoid colon, in the descending colon, at the splenic flexure, in the transverse colon, at the hepatic flexure and in the ascending colon. - The examination was otherwise normal on direct and retroflexion views. Recommendations : - Discharge patient to home. - Resume previous diet. - Continue present medications. - Await pathology results. - Repeat colonoscopy in 5 years for surveillance. My findings are described in the full procedure note, which is enclosed. If I can be of further assistance, please feel free to contact me at . Sincerely, Santiago Canas, 12/07/2023 12:50:43 PM This report has been signed electronically.
--- NOTE | 2023-12-07 12:51 | OP.COLON_ITS ---
Patient Name: Paz Rosales Procedure Date: 12/07/2023 12:22 PM Date of : 1955 Age: 68 Procedure: Colonoscopy Indications: High risk colon cancer surveillance: Personal history of colonic polyps Providers: Santiago Canas DO Medicines: Monitored Anesthesia Care Patient Profile: This is a 68 year old female. Refer to note in patient chart for documentation of history and physical. Patient has symptoms. Last Colonoscopy: more than 3 years ago. Complications: No immediate complications. Procedure: Pre-Anesthesia Assessment: - Prior to the procedure, a History and Physical was performed, and patient medications and allergies were reviewed. The patient is competent. The risks and benefits of the procedure and the sedation options and risks were discussed with the patient. All questions were answered and informed consent was obtained. Patient identification and proposed procedure were verified by the physician in the pre-procedure area. Mental Status Examination: alert and oriented. Airway Examination: normal oropharyngeal airway and neck mobility. Respiratory Examination: clear to auscultation. CV Examination: normal. Prophylactic Antibiotics: The patient does not require prophylactic antibiotics. Prior Anticoagulants: The patient has taken no anticoagulant or antiplatelet agents. ASA Grade Assessment: II - A patient with mild systemic disease. After reviewing the risks and benefits, the patient was deemed in satisfactory condition to undergo the procedure. The anesthesia plan was to use monitored anesthesia care (MAC). Immediately prior to administration of medications, the patient was re-assessed for adequacy to receive sedatives. The heart rate, respiratory rate, oxygen saturations, blood pressure, adequacy of pulmonary ventilation, and response to care were monitored throughout the procedure. The physical status of the patient was re-assessed after the procedure. After I obtained informed consent, the scope was passed under direct vision. Throughout the procedure, the patient's blood pressure, pulse, and oxygen saturations were monitored continuously. The Colonoscope was introduced through the anus and advanced to the cecum, identified by appendiceal orifice and ileocecal valve. The colonoscopy was performed without difficulty. The patient tolerated the procedure well. The quality of the bowel preparation was adequate. The ileocecal valve, appendiceal orifice, and rectum were photographed. Scope In: 12:25:26 PM Scope Withdrawal Time 0 hours 9 minutes 2 seconds Scope Out: 12:38:33 PM Total Procedure Duration Time 0 hours 13 minutes 7 seconds Findings: The perianal and digital rectal examinations were normal. A 19 mm polyp was found in the sigmoid colon. The polyp was sessile. The polyp was removed with a saline injection-lift technique using a hot snare. Resection and retrieval were complete. Verification of patient identification for the specimen was done. Estimated blood loss was minimal. Multiple small and large-mouthed diverticula were found in the recto-sigmoid colon, sigmoid colon, descending colon, splenic flexure, transverse colon, hepatic flexure and ascending colon. The exam was otherwise without abnormality on direct and retroflexion views. Impression: - One 19 mm polyp in the sigmoid colon, removed using injection-lift and a hot snare. Resected and retrieved. - Diverticulosis in the recto-sigmoid colon, in the sigmoid colon, in the descending colon, at the splenic flexure, in the transverse colon, at the hepatic flexure and in the ascending colon. - The examination was otherwise normal on direct and retroflexion views. Recommendation: - Discharge patient to home. - Resume previous diet. - Continue present medications. - Await pathology results. - Repeat colonoscopy in 5 years for surveillance. Procedure Code(s): --- Professional --- 06393, Colonoscopy, flexible; with removal of tumor(s), polyp(s), or other lesion(s) by snare technique 87516, Colonoscopy, flexible; with directed submucosal injection(s), any substance CPT copyright 2021 [employer]. All rights reserved. The codes documented in this report are preliminary and upon fish roe processor review may be revised to meet current compliance requirements. Santiago Canas DO 12/07/2023 12:50:43 PM This report has been signed electronically. Number of Addenda: 0 Note Initiated On: 12/07/2023 12:22 PM
[2023-12-07 12:55] VITALS: BP 131/74; BP 153/82; PULSE 83; RESP 16; O2SAT 100
[2023-12-07 13:07] VITALS: BP 131/74; BP 160/88; PULSE 86; RESP 16; TEMP 37.1; O2SAT 100
[2023-12-07 13:30] VITALS: BP 131/74
--- NOTE | 2023-12-07 13:55 | SUR.PHASEII ---
REPORT PHONED TO AURELIO FRANK AT [facility]; HOMEGOING INSTRUCTIONS REVIEWED VERBALLY AND IN WRITING WITH PT
== END 2023-12-07 13:56 | disposition home or self-care (01) ==
LOC: EN 10:54 → AC 10:56
PROVIDERS: PCP Family Medicine; Referring Provider Family Medicine; Visit Provider Internal Medicine Gastroenterology
PROC: 0DJD8ZZ Inspection of Lower Intestinal Tract, Via Natural or Artificial Opening Endoscopic (ICD-10-PCS; CPT 45378; principal; 2023-12-07 11:55)
DX: Z12.11 Encounter for screening for malignant neoplasm of colon (principal); K44.9 Diaphragmatic hernia without obstruction or gangrene; K21.9 Gastro-esophageal reflux disease without esophagitis; K29.50 Unspecified chronic gastritis without bleeding; K57.30 Diverticulosis of large intestine without perforation or abscess without bleeding; K31.7 Polyp of stomach and duodenum; Z86.010 Personal history of colon polyps; E73.9 Lactose intolerance, unspecified; K58.1 Irritable bowel syndrome with constipation; Z80.0 Family history of malignant neoplasm of digestive organs; K22.2 Esophageal obstruction; D12.5 Benign neoplasm of sigmoid colon; Z79.899 Other long term (current) drug therapy; Z79.82 Long term (current) use of aspirin; Z79.02 Long term (current) use of antithrombotics/antiplatelets; I10 Essential (primary) hypertension; E03.9 Hypothyroidism, unspecified; E78.00 Pure hypercholesterolemia, unspecified
CPT/HCPCS: 43239; 45385; 43248; 43251; 45381; 43236; 88305; 88312; 88342; J7120; J2405

== ENCOUNTER → 2023-12-13 | Outpatient (REF) | payer MEDICARE, MEDICAID, SELFPAY ==
[2023-12-13 12:02] LABS: ALB/GLOB Ratio 1.2 RATIO (0.9-2.4); AST(SGOT) 14 U/L (15-37); Alanine Aminotransfer ALT/SGPT 24 U/L (13-56); Albumin, Serum 3.4 g/dL (3.2-5.0); Alkaline Phosphatase 82 U/L (45-117); Anion Gap 7 (5-15); BUN 15 mg/dL (7-18); BUN/Creat Ratio 17.8 RATIO (10-20); Calcium,Total 9.1 mg/dL (8.5-10.1); Chloride 108 mmol/L (98-107); Cholesterol 168 mg/dL (200); Creatinine, Serum 0.84 mg/dL (0.55-1.02); EST Glomerular Filtration Rate 72 mL/min (>60); Est Glom Filt Rate - Afr Amer 87 mL/min (>60); Globulin 2.8 g/dL (2.2-4.2); Glucose 89 mg/dL (74-106); High Density Lipoprotein 75 mg/dL; Potassium 4.2 mmol/L (3.5-5.1); Protein, Total 6.2 g/dL (6.4-8.2); Sodium Level 142 mmol/L (136-145); Thyroid Stim Hormone (TSH) 4.19 uIU/mL (0.358-3.74); Triglycerides 54 mg/dL; Very Low Density Lipoprotein 11 mg/dL (5-40)
== END ==
LOC: OLS.SWAL 05:00
PROVIDERS: PCP Family Medicine
DX: I10 Essential (primary) hypertension (principal); E78.5 Hyperlipidemia, unspecified; E03.9 Hypothyroidism, unspecified
CPT/HCPCS: 36415; 80053; 80061; 84443

== ENCOUNTER 2024-01-23 23:10 | Emergency (ER) | payer MEDICARE, MEDICAID, SELFPAY ==
[2024-01-23 23:11] VITALS: BP 139/76; PULSE 87; RESP 20; TEMP 36.7; O2SAT 96; BMI 36.9
--- NOTE | 2024-01-23 23:28 | ED.VIS.FALL ---
HPI HPI - Fall History of Present Illness Chief Complaint: Fall Informant: patient Occured/Mechanism Occurred: Today Mechanism/Context: Yes trip Usually ambulates: Walker Pain/Injury Pain Location: head and lower extremity (Right hip) Quality of Pain: Aching Worsened by: Nothing Relieved by: Nothing Associated Symptoms Associated Symptoms: Negative for Parasthesias, Weakness, Loss of function, Loss of consciousness or Amnesia Narrative Narrative: Patient presents with head injury that occurred today. Patient states he tripped over the wheel of her walker and fell. Patient states she landed on her right side. Patient states she hit the right side of her head and right hip. Patient states that they would not let her get up after she fell. Patient denies any loss of consciousness. Patient denies any paresthesias or weakness. Patient states nothing makes her pain better and nothing makes it worse. Patient denies any other injuries. [facility] Medical History Anemia Anxiety Anxiety disorder, unspecified Asthma Bipolar 1 disorder Bipolar 1 disorder, depressed Cerebral palsy Diverticulitis Falls Fibromyalgia GERD (gastroesophageal reflux disease) HBP (high blood pressure) History of echocardiogram Hypercholesteremia Hyperlipidemia Hypertension Hypothyroid Irritable bowel Kyphosis Left rotator cuff tear Left rotator cuff tear Migraine Peripheral vascular disease Primary osteoarthritis, left shoulder Scoliosis Home Medications fluticasone propionate 50 mcg/actuation nasal spray,suspension 2 spray NASAL DAILY congestion 01/03/16 [History Last Taken 03/24/21] aspirin 81 mg chewable tablet 81 mg PO DAILY heart health 12/16/17 [History Last Taken 03/24/21] multivitamin 1 ea PO DAILY supplement 12/02/18 [History Last Taken 03/24/21] polyethylene glycol 3350 17 gram oral powder packet 17 g PO DAILY 06/22/19 [History Last Taken 03/22/21] albuterol sulfate 90 mcg/actuation aerosol inhaler 2 puff inhalation Q6H PRN PRN Sob &/Or Wheezing 04/16/20 [History Last Taken 11/05/20] diclofenac sodium 1 % topical gel 1 applic topical Q6H PRN PRN Pain 04/16/20 [History Last Taken 03/24/21] promethazine 25 mg tablet 25 mg PO Q6H PRN PRN Nausea 01/07/21 [History Last Taken 03/23/21] acetaminophen 500 mg tablet (Acetaminophen Extra Strength) 1,000 mg PO Q6H PRN Pain 09/18/21 [History Last Taken Unknown] lamotrigine 200 mg tablet 200 mg PO BID 01/14/22 [History Last Taken Unknown] clopidogrel 75 mg tablet (Plavix) 75 mg PO DAILY 02/15/22 [History Last Taken 12/03/23] calcium carb-ergocalciferol (vit D2) 500 mg (1,250 mg)-200 unit tablet 1 tab PO BID 04/16/22 [History Last Taken Unknown] ammonium lactate 12 % topical cream 1 applic topical PRN 06/17/22 [History Last Taken Unknown] calcium polycarbophil 625 mg tablet (Fiber Laxative (calcium polycarbophil)) 625 mg PO DAILY 06/17/22 [History Last Taken Unknown] nystatin 100,000 unit/gram topical powder 1 applic topical DAILY 06/17/22 [History Last Taken Unknown] ferrous sulfate 325 mg (65 mg iron) tablet 325 mg PO DAILY 09/07/22 [History Last Taken Unknown] lamotrigine 200 mg tablet (Lamictal) 200 mg PO QHS 09/07/22 [History Last Taken Unknown] losartan 25 mg tablet 25 mg PO BID 09/07/22 [History Last Taken 12/07/23] meclizine 25 mg capsule 12.5 mg PO Q6H PRN Dizziness 10/07/22 [History Last Taken Unknown] lactase 9,000 unit tablet See Rx Instructions PO .COMPLEX PRN lactose intolerance #360 tabs 11/24/22 [Rx Last Taken Unknown] rabeprazole 20 mg tablet,delayed release 20 mg PO BID #60 tabs 11/24/22 [Rx Last Taken Unknown] cholecalciferol (vitamin D3) 50 mcg (2,000 unit) capsule 50 mcg PO DAILY 12/03/22 [History Last Taken Unknown] triamcinolone acetonide 0.1 % topical cream 1 applic topical DAILY PRN PER 12/03/22 [History Last Taken Unknown] lidocaine 4 % topical patch (Salonpas (lidocaine)) 1 patch topical DAILY PRN pain #30 ea 02/01/23 [Rx Last Taken Unknown] ibandronate 150 mg tablet 150 mg PO QMONTH 04/29/23 [History Last Taken Unknown] budesonide 0.25 mg/2 mL suspension for nebulization 0.25 mg inhalation BID 05/31/23 [History Last Taken Unknown] cyanocobalamin (vitamin B-12) 1,000 mcg/mL injection solution 1,000 mcg IM Q2W supplement 05/31/23 [History Last Taken Unknown] gabapentin 600 mg tablet 600 mg PO Q8H 05/31/23 [History Last Taken 12/07/23] rosuvastatin 5 mg tablet 5 mg PO DAILY 05/31/23 [History Last Taken Unknown] cetirizine 10 mg capsule (Zyrtec) 10 mg PO DAILY PRN allergy symptoms 06/16/23 [History Last Taken Unknown] formoterol fumarate 20 mcg/2 mL solution for nebulization 2 ml inhalation BID 06/16/23 [History Last Taken Unknown] Latuda 20 mg tablet (lurasidone) 20 mg PO QPM #30 tabs 07/08/23 [Rx Last Taken Unknown] hydroxyzine pamoate 25 mg capsule 25 mg PO BID PRN anxiety 12/02/23 [History Last Taken 12/07/23] cyclobenzaprine 10 mg tablet 10 mg PO Q8H muscle spasm 12/23/23 [History Last Taken Unknown] hydrocodone-acetaminophen 5-325mg 5mg-325mg 1 tab PO Q8H pain 12/23/23 [History Last Taken Unknown] aluminum-magnesium hydroxide 200 mg-200 mg/5 mL oral suspension 15 ml PO Q4H PRN dyspepsia 01/24/24 [History Last Taken Unknown] amlodipine 2.5 mg tablet 2.5 mg PO DAILY 01/24/24 [History Last Taken Unknown] carboxymethylcellulose sodium 1 % eye drops (Artificial Tears (carboxymethylcellulose)) 2 drp EACH EYE BID 01/24/24 [History Last Taken Unknown] hydrocortisone 2.5 % topical cream 1 applic topical TID PRN skin irritation 01/24/24 [History Last Taken Unknown] ipratropium 0.5 mg-albuterol 3 mg (2.5 mg base)/3 mL nebulization soln 3 ml inhalation BID 01/24/24 [History Last Taken Unknown] lamotrigine 100 mg tablet 100 mg PO QHS 01/24/24 [History Last Taken Unknown] levothyroxine 75 mcg tablet 75 mcg PO DAILY 01/24/24 [History Last Taken Unknown] Allergy/AdvReac Type Severity Reaction Status Date / Time lithium Allergy Mild Vomiting Verified 01/23/24 23:20 propantheline Allergy Unknown unknown Verified 01/23/24 23:20 ziprasidone [From Geodon] Allergy Unknown unknown Verified 01/23/24 23:20 aspartame Allergy Itching Verified 01/23/24 23:20 carrot Allergy Food Verified 01/23/24 23:20 Allergy ciclesonide [From [place]vesco] Allergy Shortness Verified 01/23/24 23:20 of breath diphenhydramine Allergy Other Verified 01/23/24 23:20 [From Benadryl] diphenhydramine HCl Allergy Rash Verified 01/23/24 23:20 [From Benadryl] imipramine Allergy Other Verified 01/23/24 23:20 levofloxacin [From Levaquin] Allergy Itching Verified 01/23/24 23:20 onabotulinumtoxinA Allergy Itching Verified 01/23/24 23:20 [From Botox] Penicillins Allergy Rash Verified 01/23/24 23:20 Seasonal Allergies: Uncoded Allergy NEEDS Verified 01/23/24 23:20 [environmental] FOLLOW-UP Sulfa (Sulfonamide Allergy NEEDS Verified 01/23/24 23:20 Antibiotics) FOLLOW-UP sulfamethoxazole Allergy NEEDS Verified 01/23/24 23:20 [From Bactrim] FOLLOW-UP topiramate [From Topamax] Allergy Other Verified 01/23/24 23:20 trimethoprim [From Bactrim] Allergy NEEDS Verified 01/23/24 23:20 FOLLOW-UP baclofen AdvReac Severe vomitting Verified 01/23/24 23:20 erythromycin base AdvReac Severe chest pain Verified 01/23/24 23:20 fentanyl AdvReac Severe Vomiting Verified 01/23/24 23:20 lubiprostone [From Amitiza] AdvReac Severe Vomiting Verified 01/23/24 23:20 ondansetron [From Zofran] AdvReac Severe Vomiting Verified 01/23/24 23:20 oxycodone AdvReac Severe vomitting Verified 01/23/24 23:20 oxymorphone AdvReac Severe ABD pain Verified 01/23/24 23:20 and vomiting pregabalin [From Lyrica] AdvReac Severe eyes would Verified 01/23/24 23:20 stay closed codeine AdvReac nausea Verified 01/23/24 23:20 lurasidone AdvReac Pain in Verified 01/23/24 23:20 joints sertraline [From Zoloft] AdvReac serotoin Verified 01/23/24 23:20 syndrome Family History Sister CVA (cerebral vascular accident) Afib Heart disease Liver disease Brother Colon cancer Father Emphysema lung Surgical History History of appendectomy History of carpal tunnel release History of total left knee replacement History of total right knee replacement Hx of cholecystectomy Social History adopted: No housing: assisted living facility current occupational status: disabled pets and animals: No Smoking Status: Never smoker alcohol intake: never substance use type: does not use ROS ROS ED Constitutional Constitutional ED: Denies chills or fever(s) Eyes Eyes: Denies blurry vision or change in vision ENT ENT ED: Denies rhinorrhea or sore throat Cardiovascular Cardiovascular: Denies chest pain or palpitations Respiratory/Chest Respiratory/Chest: Denies cough or dyspnea Gastrointestinal Gastrointestinal: Denies nausea or vomiting Genitourinary Genitourinary ED: Denies dysuria or hematuria Musculoskeletal Musculoskeletal: Reports back pain and neck pain Integumentary Denies abscess or rash Neurologic Neurologic: Reports headache(s); Denies weakness Allergic/Immunologic Allergic/Immunologic ED: Denies mouth swelling or urticaria EXAM Physical Exam Const Vital Signs: 01/23/24 23:11 01/23/24 23:17 Temperature 98.1 F Temperature Source Temporal Pulse Rate 87 Respiratory Rate 20 H Respiratory Effort Normal Non-Labored Respiratory Depth Normal Respiratory Pattern Normal Blood Pressure 139/76 H Blood Pressure Mean 97 Pulse Ox 96 Oxygen Delivery Method Room Air Room Air Oxygen Flow Rate (L/min) 97 Positive well nourished, well developed and obese General Appearance ED: well developed and NAD Nutritional Appearance: obese HEENT Reports normocephalic HEENT Narrative: There is mild tenderness over the right parietal scalp. There is no edema or ecchymosis. There is no bony crepitance or step-off noted. There are no lacerations noted. There is no hematoma noted. tenderness; Negative for hematoma Neck full ROM and supple Chest Wall palpation of chest normal Resp normal respiratory effort Cardio regular rate and regular rhythm GI non-tender and non-distended Palpation: soft Extremity Extremity Narrative: There is tenderness over the right greater trochanter. There is no deformity noted. There is some mild pain with internal and external rotation. Patient was able to sit up and flex her hip without difficulty. Pedal pulses are equal bilaterally. There is no calf tenderness noted. Neuro oriented x3, CN's II-XII intact bilaterally, moves all extremities, no focal motor deficits and no sensory deficits noted Germán Coma Scale: document GCS findings Spontaneous Obeys Commands Oriented 15 Sensorium / Orientation: alert Motor Exam: strength 5/5 throughout Psych mental status grossly normal and thought process normal MDM MDM MDM Narrative Medical decision making narrative: Differential diagnosis includes intracranial bleeding, closed head injury, right hip contusion, and occult fracture. X-rays of the right hip will be obtained to assess for right hip fracture. CT scan of the brain will be obtained to assess for intracranial bleeding. Radiography Diagnostic Testing: Clinical Impression(s) from Imaging Studies Brain CT 01/23/24 23:48 IMPRESSION: Mild generalized atrophy. Mild low density bilaterally in the deep white matter. This likely represents chronic small vessel ischemic changes in the deep white matter. Electronically Signed: Navarro Dorado MD at 0:37 EDT , Hip/Pelvis X-Ray 01/24/24 00:00 IMPRESSION: No fractures. Electronically Signed: Navarro Dorado MD at 0:40 EDT , X-rays of the right hip and pelvis were obtained. There are 3 views. On my independent interpretation, there is no acute fracture or dislocation noted. Radiologist also interpreted the x-rays and agrees. CT scan of the brain was obtained. There is no acute intracranial abnormality. There is mild atrophy. There are chronic small vessel ischemic changes in the deep white matter. This was interpreted by the radiologist and was also independently reviewed by myself. Treatment and Re-Evaluation Narrative: Patient was advised of her findings. Patient was instructed to take Tylenol or ibuprofen as needed for any pain. Patient was instructed to follow-up with her primary care physician in 5 to 7 days. Patient understood and was agreeable with the plan. All questions were answered. Discharge Plan Triage Chief Complaint: Fall ED Provider: Roshan Peñaloza Dx/Rx/DC Orders Clinical Impression: Closed head injury, Fall, Contusion of right hip, initial encounter Instructions: ED Head Injury (Adult), ED Hip Contusion Prescriptions: No Action aspirin 81 mg tablet,chewable 81 mg PO DAILY lamotrigine 200 mg tablet 200 mg PO BID cyclobenzaprine 10 mg tablet 10 mg PO Q8H ammonium lactate 12 % cream 1 applic topical PRN calcium polycarbophil [Fiber Laxative (ca polycarbo)] 625 mg tablet 625 mg PO DAILY nystatin 100,000 unit/gram powder 1 applic topical DAILY losartan 25 mg tablet 25 mg PO BID lactase 9,000 unit tablet See Rx Instructions PO .COMPLEX PRN (Reason: lactose intolerance) Qty: 360 5RF Rx Instructions: take 5-10 tablets by mouth with meals and/or snacks that contain dairy rabeprazole 20 mg tablet,delayed release (DR/EC) 20 mg PO BID Qty: 60 12RF triamcinolone acetonide 0.1 % cream 1 applic topical DAILY PRN (Reason: PER DR) cholecalciferol (vitamin D3) 50 mcg (2,000 unit) capsule 50 mcg PO DAILY lidocaine [Salonpas (lidocaine)] 4 % adhesive patch,medicated 1 patch topical DAILY PRN (Reason: pain) Qty: 30 3RF ibandronate 150 mg tablet 150 mg PO QMONTH rosuvastatin 5 mg tablet 5 mg PO DAILY budesonide 0.25 mg/2 mL suspension for nebulization 0.25 mg inhalation BID gabapentin 600 mg tablet 600 mg PO Q8H formoterol fumarate 20 mcg/2 mL solution for nebulization 2 ml inhalation BID Zyrtec 10 mg capsule 10 mg PO DAILY PRN (Reason: allergy symptoms) hydrocodone-acetaminophen 5-325 mg tablet 1 tab PO Q8H fluticasone propionate 1 SPRAY spray,suspension 2 spray NASAL DAILY multivitamin 1 EACH tablet 1 ea PO DAILY polyethylene glycol 3350 17 GM packet 17 g PO DAILY albuterol sulfate 1 INHALER inhaler 2 puff inhalation Q6H PRN PRN (Reason: Sob &/Or Wheezing) diclofenac sodium 1 APPLIC gel 1 applic topical Q6H PRN PRN (Reason: Pain) promethazine 25 MG tablet 25 mg PO Q6H PRN PRN (Reason: Nausea) cyanocobalamin (vitamin B-12) 1,000 mcg/mL solution 1,000 mcg IM Q2W acetaminophen [Acetaminophen Extra Strength] 500 mg Tablet 1,000 mg PO Q6H PRN (Reason: Pain) ferrous sulfate 325 mg (65 mg iron) tablet 325 mg PO DAILY meclizine 25 mg capsule 12.5 mg PO Q6H PRN (Reason: Dizziness) clopidogrel [Plavix] 75 mg Tablet 75 mg PO DAILY Calcium 500 with Vitamin D2 500 mg(1,250mg) -200 unit Tablet 1 tab PO BID lamotrigine [Lamictal] 200 mg tablet 200 mg PO QHS Rx Instructions: Take with 100mg tab hydroxyzine pamoate 25 mg capsule 25 mg PO BID PRN (Reason: anxiety) aluminum-magnesium hydroxide 200-200 mg/5 mL suspension 15 ml PO Q4H PRN (Reason: dyspepsia) amlodipine 2.5 mg tablet 2.5 mg PO DAILY Artificial Tears (cmc) 1 % drops 2 drp EACH EYE BID hydrocortisone 2.5 % cream 1 applic topical TID PRN (Reason: skin irritation) ipratropium-albuterol 0.5 mg-3 mg(2.5 mg base)/3 mL solution for nebulization 3 ml inhalation BID lamotrigine 100 mg tablet 100 mg PO QHS Rx Instructions: take with 200mg tab levothyroxine 75 mcg tablet 75 mcg PO DAILY Latuda 20 mg tablet 20 mg PO QPM Qty: 30 2RF Rx Instructions: must administer with food (at least 350 calories) Primary Care Provider: Alex Self Referrals: Alex Self MD [Primary Care Provider] - 5-7 Days Disposition Disposition: Home, Self Care
--- NOTE | 2024-01-23 23:48 | CT_ITS ---
EXAM: CT HEAD WITHOUT INTRAVENOUS CONTRAST CLINICAL INDICATION: Head injury TECHNIQUE: Multiple axial images were obtained of the head without intravenous contrast. This CT exam was performed using one or more of the following dose reduction techniques: automated exposure control, adjustment of the mA and/or kV according to patient size, and/or use of iterative reconstruction technique. RADIATION DOSE: CTDIvol = 44.99 mGy, DLP = 812.98 mGy-cm COMPARISON: 07/16/2023. FINDINGS: BRAIN AND EXTRA-AXIAL SPACES: Mild generalized atrophy. Mild low density bilaterally in the deep white matter. No intra- or extra-axial hemorrhage. No evidence of acute infarct. No intracranial mass or mass effect. There is preservation of the wilkins/white matter interface. Posterior fossa structures are unremarkable. No hydrocephalus. Basal cisterns are patent. BONES/JOINTS: Unremarkable. No discrete lytic or blastic abnormalities. SINUSES: Unremarkable as visualized. Clear. MASTOID AIR CELLS: Unremarkable. Clear. ORBITS: Visualized globes, extraocular muscles, optic nerves and retrobulbar fat appear unremarkable. CT/Brain/Head without Contrast IMPRESSION: Mild generalized atrophy. Mild low density bilaterally in the deep white matter. This likely represents chronic small vessel ischemic changes in the deep white matter. Electronically Signed: Navarro Dorado MD at 0:37 EDT ,
--- NOTE | 2024-01-24 | RAD_ITS ---
EXAM: XR RIGHT HIP WITH PELVIS WHEN PERFORMED, 2 OR 3 VIEWS CLINICAL INDICATION: Injury/Pain TECHNIQUE: Two or three views of the right hip with pelvis when performed. COMPARISON: No relevant prior studies available. FINDINGS: BONES/JOINTS: Degenerative changes in lower lumbar spine. No displaced fracture. No destructive or sclerotic lesions. Note that overlapping bowel shadows may however obscure fine detail. Sacroiliac joint is unremarkable. No widening of the pubic symphysis. SOFT TISSUES: Unremarkable. No soft tissue swelling or gas. RAD/HIP, UNI W/ Pelvis 2-3 Views IMPRESSION: No fractures. Electronically Signed: Navarro Dorado MD at 0:40 EDT ,
[2024-01-24 01:10] VITALS: BP 153/89; PULSE 81; RESP 16; O2SAT 97
--- NOTE | 2024-01-24 01:29 | ED.RN ---
Pt unsure of how to get back to her assisted living facility. Her POA was contacted, she states she lives out of town and is unable to pick her up. She states she will try to contact someone local to pick her up.
--- NOTE | 2024-01-24 02:26 | ED.RN ---
MICHELLE calls back stating she cannot find anyone to come pick her up. Patients other contact Theresa is also unavailable. Patient is becoming very upset. This RN sets up a wheelchair ambulance to get patient back home due to patient having cerebral palsy, using a walker and leg braces and not having those equipment with her.
[2024-01-24 02:35] VITALS: BP 141/85; PULSE 81; RESP 16; TEMP 36.1; O2SAT 99
== END 2024-01-24 02:36 | disposition home or self-care (01) ==
LOC: ED 01-24 00:57
PROVIDERS: Emergency Provider Emergency Medicine; PCP Family Medicine; Visit Provider Emergency Medicine
DX: S09.90XA Unspecified injury of head, initial encounter (principal); S70.01XA Contusion of right hip, initial encounter; M54.2 Cervicalgia; W18.09XA Striking against other object with subsequent fall, initial encounter; Z79.82 Long term (current) use of aspirin; Z79.02 Long term (current) use of antithrombotics/antiplatelets; Z79.890 Hormone replacement therapy; Z79.899 Other long term (current) drug therapy
CPT/HCPCS: 70450; 73502; 99282

== ENCOUNTER → 2024-02-29 | Outpatient (REF) | payer MEDICARE, MEDICAID, SELFPAY ==
[2024-02-29 08:08] LABS: Hematocrit 35.3 % (37-47); Hemoglobin 11.8 g/dL (12.0-15.0); Mean Corp Hgb Conc 33.4 g/dL (32-36); Mean Corpuscular Hgb 32.2 pg (27.0-32.0); Mean Corpuscular Volume 96.4 fL (81-99); Mean Platelet Vol. 8.5 fl (6.2-12.0); Platelet Count 208 K/mm3 (150-450); RBC Distribution Width CV 11.9 % (11.6-14.6); RBC Distribution Width SD 41.6 fl (35.1-43.9); Red Blood Count 3.66 M/mm3 (4.2-5.4); White Blood Count 3.9 K/mm3 (4.4-11.0)
[2024-02-29 08:37] LABS: ALB/GLOB Ratio 1.3 RATIO (0.9-2.4); AST(SGOT) 16 U/L (15-37); Alanine Aminotransfer ALT/SGPT 17 U/L (13-56); Albumin, Serum 3.1 g/dL (3.2-5.0); Alkaline Phosphatase 92 U/L (45-117); Anion Gap 4 (5-15); BUN 11 mg/dL (7-18); BUN/Creat Ratio 13.4 RATIO (10-20); Calcium,Total 8.6 mg/dL (8.5-10.1); Chloride 105 mmol/L (98-107); Cholesterol 146 mg/dL (200); Creatinine, Serum 0.82 mg/dL (0.55-1.02); EST Glomerular Filtration Rate 74 mL/min (>60); Est Glom Filt Rate - Afr Amer 90 mL/min (>60); Ferritin 54 ng/mL (8-252); Free T3 2.5 pg/mL (2.18-3.98); Globulin 2.4 g/dL (2.2-4.2); Glucose 83 mg/dL (74-106); High Density Lipoprotein 66 mg/dL; Potassium 3.8 mmol/L (3.5-5.1); Protein, Total 5.5 g/dL (6.4-8.2); Sodium Level 138 mmol/L (136-145); T4 Free Direct 1.21 ng/dL (0.76-1.46); Triglycerides 59 mg/dL; Very Low Density Lipoprotein 12 mg/dL (5-40)
[2024-02-29 09:20] LABS: Vitamin B12 772 pg/mL (211-911); Vitamin D,25 Hydroxy 57.8 ng/mL
== END ==
LOC: OLS.SWAL 05:00
PROVIDERS: PCP Family Medicine; Visit Provider Family Medicine
DX: D51.9 Vitamin B12 deficiency anemia, unspecified (principal); E55.9 Vitamin D deficiency, unspecified; I10 Essential (primary) hypertension; E78.5 Hyperlipidemia, unspecified; E03.9 Hypothyroidism, unspecified
CPT/HCPCS: 36415; 80053; 80061; 82306; 82607; 82728; 84439; 84443; 84481; 85027

== ENCOUNTER 2024-03-21 00:11 | Emergency (ER) | payer MEDICARE, MEDICAID, SELFPAY ==
[2024-03-21 00:13] VITALS: BP 154/100; PULSE 85; RESP 18; TEMP 36.5; O2SAT 97; BMI 37.0
--- NOTE | 2024-03-21 00:32 | CT_ITS ---
EXAM: CT HEAD WITHOUT INTRAVENOUS CONTRAST CLINICAL INDICATION: trauma TECHNIQUE: Multiple axial images were obtained of the head without intravenous contrast. This CT exam was performed using one or more of the following dose reduction techniques: automated exposure control, adjustment of the mA and/or kV according to patient size, and/or use of iterative reconstruction technique. RADIATION DOSE: CTDIvol = 44.99 mGy, DLP = 812.98 mGy-cm COMPARISON: 01/24/2024. FINDINGS: BRAIN AND EXTRA-AXIAL SPACES: Mild generalized atrophy. Mild low density bilaterally in the deep white matter. No intra- or extra-axial hemorrhage. No evidence of acute infarct. No intracranial mass or mass effect. There is preservation of the wilkins/white matter interface. Posterior fossa structures are unremarkable. No hydrocephalus. Basal cisterns are patent. BONES/JOINTS: Unremarkable. No discrete lytic or blastic abnormalities. SOFT TISSUES: Moderate scalp hematoma in the left frontal region and scalp hematoma and laceration in the vertex region. SINUSES: Unremarkable as visualized. Clear. MASTOID AIR CELLS: Unremarkable. Clear. ORBITS: Visualized globes, extraocular muscles, optic nerves and retrobulbar fat appear unremarkable. CT/Brain/Head without Contrast IMPRESSION: 1. Moderate scalp hematoma in the left frontal region and scalp hematoma and laceration in the vertex region. 2. Mild generalized atrophy. Mild low density bilaterally in the deep white matter. This likely represents chronic small vessel ischemic changes in the deep white matter. Electronically Signed: Navarro Dorado MD at 1:20 EDT ,
--- NOTE | 2024-03-21 00:33 | EDS_ITS ---
HPI HPI - Fall History of Present Illness Chief Complaint: Fall Informant: patient and EMS Narrative Narrative: Patient states she fell because her legs got twisted together while she was walking in her building at assisted living where she resides. She hit her head on a nearby piece of furniture. No loss of consciousness but she sustained a laceration. She having a headache but no nausea or vomiting. No focal neurologic symptoms. Has a history of tremor which is unchanged, she states her doctor thinks it is due to medication interaction and they are working on it. She is on clopidogrel no anticoagulants. She denies any other injury. [facility] Medical History History of echocardiogram Scoliosis Anxiety disorder, unspecified Left rotator cuff tear Bipolar 1 disorder, depressed Primary osteoarthritis, left shoulder Diverticulitis Left rotator cuff tear Falls Peripheral vascular disease Kyphosis Anxiety GERD (gastroesophageal reflux disease) Migraine Asthma Irritable bowel Hypercholesteremia Anemia Hyperlipidemia Hypertension Bipolar 1 disorder Fibromyalgia HBP (high blood pressure) Hypothyroid Cerebral palsy Home Medications ?Medication ?Instructions ?Recorded ?Last Taken ?Type fluticasone propionate 50 2 spray NASAL DAILY congestion 01/03/16 03/24/21 History mcg/actuation nasal spray,suspension aspirin 81 mg chewable tablet 81 mg PO DAILY heart health 12/16/17 03/24/21 History multivitamin 1 ea PO DAILY supplement 12/02/18 03/24/21 History polyethylene glycol 3350 17 gram 17 g PO DAILY 06/22/19 03/22/21 History oral powder packet albuterol sulfate 90 mcg/actuation 2 puff inhalation Q6H PRN PRN Sob 04/16/20 11/05/20 History aerosol inhaler &/Or Wheezing diclofenac sodium 1 % topical gel 1 applic topical Q6H PRN PRN Pain 04/16/20 03/24/21 History promethazine 25 mg tablet 25 mg PO Q6H PRN PRN Nausea 01/07/21 03/23/21 History acetaminophen 500 mg tablet 1,000 mg PO Q6H PRN Pain 09/18/21 Unknown History (Acetaminophen Extra Strength) lamotrigine 200 mg tablet 200 mg PO BID 01/14/22 Unknown History clopidogrel 75 mg tablet (Plavix) 75 mg PO DAILY 02/15/22 12/03/23 History calcium carb-ergocalciferol (vit 1 tab PO BID 04/16/22 Unknown History D2) 500 mg (1,250 mg)-200 unit tablet ammonium lactate 12 % topical cream 1 applic topical PRN 06/17/22 Unknown History calcium polycarbophil 625 mg 625 mg PO DAILY 06/17/22 Unknown History tablet (Fiber Laxative (calcium polycarbophil)) nystatin 100,000 unit/gram topical 1 applic topical DAILY 06/17/22 Unknown History powder ferrous sulfate 325 mg (65 mg 325 mg PO DAILY 09/07/22 Unknown History iron) tablet lamotrigine 200 mg tablet 200 mg PO QHS 09/07/22 Unknown History (Lamictal) losartan 25 mg tablet 25 mg PO BID 09/07/22 12/07/23 History meclizine 25 mg capsule 12.5 mg PO BID PRN Dizziness 10/07/22 Unknown History rabeprazole 20 mg tablet,delayed 20 mg PO BID #60 tabs 11/24/22 Unknown Rx release cholecalciferol (vitamin D3) 50 50 mcg PO DAILY 12/03/22 Unknown History mcg (2,000 unit) capsule triamcinolone acetonide 0.1 % 1 applic topical DAILY PRN PER 12/03/22 Unknown History topical cream ibandronate 150 mg tablet 150 mg PO QMONTH 04/29/23 Unknown History budesonide 0.25 mg/2 mL suspension 0.25 mg inhalation BID 05/31/23 Unknown History for nebulization cyanocobalamin (vitamin B-12) 1,000 mcg IM Q2W supplement 05/31/23 Unknown History 1,000 mcg/mL injection solution gabapentin 600 mg tablet 600 mg PO Q8H 05/31/23 12/07/23 History rosuvastatin 5 mg tablet 5 mg PO DAILY 05/31/23 Unknown History cetirizine 10 mg capsule (Zyrtec) 10 mg PO DAILY PRN allergy symptoms 06/16/23 Unknown History formoterol fumarate 20 mcg/2 mL 2 ml inhalation BID 06/16/23 Unknown History solution for nebulization cyclobenzaprine 10 mg tablet 10 mg PO Q8H muscle spasm 12/23/23 Unknown History hydrocodone-acetaminophen 5-325mg 1 tab PO Q8H pain 12/23/23 Unknown History 5mg-325mg aluminum-magnesium hydroxide 200 15 ml PO Q4H PRN dyspepsia 01/24/24 Unknown History mg-200 mg/5 mL oral suspension amlodipine 2.5 mg tablet 2.5 mg PO DAILY 01/24/24 Unknown History carboxymethylcellulose sodium 1 % 2 drp EACH EYE BID 01/24/24 Unknown History eye drops (Artificial Tears (carboxymethylcellulose)) hydrocortisone 2.5 % topical cream 1 applic topical TID PRN skin 01/24/24 Unknown History irritation lamotrigine 100 mg tablet 100 mg PO QHS 01/24/24 Unknown History levothyroxine 75 mcg tablet 75 mcg PO DAILY 01/24/24 Unknown History Latuda 20 mg tablet (lurasidone) 20 mg PO QPM #7 tabs 03/14/24 Unknown Rx hydroxyzine pamoate 25 mg capsule 25 mg PO BID anxiety #60 caps 03/14/24 Unknown Rx carboxymethylcellulose sodium 1 % 1 drp ophthalmic (eye) BID 03/17/24 Unknown History eye drops (Artificial Tears (carboxymethylcellulose)) magnesium oxide 400 mg PO DAILY 03/21/24 Unknown History Allergy/AdvReac Type Severity Reaction Status Date / Time lithium Allergy Mild Vomiting Verified 03/14/24 10:13 propantheline Allergy Unknown unknown Verified 03/14/24 10:13 ziprasidone (From Geodon) Allergy Unknown unknown Verified 03/14/24 10:13 aspartame Allergy Itching Verified 03/14/24 10:13 carrot Allergy Food Verified 03/14/24 10:13 Allergy ciclesonide (From [place]) Allergy Shortness Verified 03/14/24 10:13 of breath diphenhydramine (From Allergy Other Verified 03/14/24 10:13 Benadryl) diphenhydramine HCl (From Allergy Rash Verified 03/14/24 10:13 Benadryl) imipramine Allergy Other Verified 03/14/24 10:13 levofloxacin (From Levaquin) Allergy Itching Verified 03/14/24 10:13 onabotulinumtoxinA (From Allergy Itching Verified 03/14/24 10:13 Botox) Penicillins Allergy Rash Verified 03/14/24 10:13 Seasonal Allergies: Uncoded Allergy NEEDS Verified 03/14/24 10:13 (environmental) FOLLOW-UP Sulfa (Sulfonamide Allergy NEEDS Verified 03/14/24 10:13 Antibiotics) FOLLOW-UP sulfamethoxazole (From Allergy NEEDS Verified 03/14/24 10:13 Bactrim) FOLLOW-UP topiramate (From Topamax) Allergy Other Verified 03/14/24 10:13 trimethoprim (From Bactrim) Allergy NEEDS Verified 03/14/24 10:13 FOLLOW-UP baclofen AdvReac Severe vomitting Verified 03/14/24 10:13 erythromycin base AdvReac Severe chest pain Verified 03/14/24 10:13 fentanyl AdvReac Severe Vomiting Verified 03/14/24 10:13 lubiprostone (From Amitiza) AdvReac Severe Vomiting Verified 03/14/24 10:13 ondansetron (From Zofran) AdvReac Severe Vomiting Verified 03/14/24 10:13 oxycodone AdvReac Severe vomitting Verified 03/14/24 10:13 oxymorphone AdvReac Severe ABD pain Verified 03/14/24 10:13 and vomiting pregabalin (From Lyrica) AdvReac Severe eyes would Verified 03/14/24 10:13 stay closed codeine AdvReac nausea Verified 03/14/24 10:13 lurasidone AdvReac Pain in Verified 03/14/24 10:13 joints sertraline (From Zoloft) AdvReac serotoin Verified 03/14/24 10:13 syndrome Family History Sister CVA (cerebral vascular accident) Afib Heart disease Liver disease Brother Colon cancer Father Emphysema lung Surgical History Hx of cholecystectomy History of appendectomy History of carpal tunnel release History of total right knee replacement History of total left knee replacement Social History adopted: No housing: assisted living facility current occupational status: disabled pets and animals: No Smoking Status: Never smoker alcohol intake: never substance use type: does not use ROS ROS ED Constitutional Constitutional ED: Denies chills or fever(s) Eyes Eyes: Denies change in vision or diplopia ENT ENT ED: Denies ear pain, epistaxis, facial pain or rhinorrhea Cardiovascular Cardiovascular: Denies chest pain or palpitations Respiratory/Chest Respiratory/Chest: Denies cough or dyspnea Gastrointestinal Gastrointestinal: Denies abdominal pain, diarrhea, melena, nausea or vomiting Genitourinary Genitourinary ED: Denies dysuria or hematuria Musculoskeletal Musculoskeletal: Reports extremity pain, neck pain and other Details: Chronic left shoulder pain, but has been doing better and no worse after this fall. ; Denies back pain Integumentary Reports laceration; Denies abscess, Abrasions or rash Neurologic Neurologic: Reports headache(s) and tremor(s); Denies confusion, paresthesias or weakness EXAM Physical Exam Const Vital Signs: 03/21/24 00:13 03/21/24 00:13 03/21/24 01:12 Temperature 97.7 F L Temperature Source Temporal Pulse Rate 85 80 Respiratory Rate 18 19 H Respiratory Effort Normal Non-Labored Respiratory Depth Normal Respiratory Pattern Normal Blood Pressure 154/100 H 141/79 H Blood Pressure Mean 118 99 Pulse Ox 97 94 Oxygen Delivery Method Room Air Room Air Room Air Positive well nourished, well developed and obese General Appearance ED: well developed and NAD Nutritional Appearance: obese HEENT Reports nasal mucous membranes and turbinates normal HEENT Narrative: No Lboom sign or raccoon eyes/signs of facial trauma. No CSF otorhinorrhea. trauma and hematoma Hematoma Size: Large, high occipital with laceration. Not able to assess for crepitance o Face and Sinus: Negative for facial tenderness Eyes PERRL and EOMs intact bilaterally Visual Acuity: other Other Details: no entrapment or pain with extraocular movements Neck full ROM and supple Neck Narrative: Tender in the left paraspinal musculature very lateral and near to the trapezius muscles lateral to the neck. No midline tenderness or anywhere close. General: tenderness Chest Wall inspection of chest normal and palpation of chest normal Chest: symmetrical chest wall rise; Negative for crepitus or tenderness Resp normal respiratory effort and clear to auscultation bilaterally Percussion: other equal BS bilat Cardio no murmurs Rate: regular rate Rhythm: regular rhythm GI normal to inspection, nondistended, normoactive bowel sounds, soft to palpation and non-tender Back/Spine normal ROM Cervical Spine: Negative for cervical spine tenderness Thoracic Spine / Upper Back: Negative for thoracic spinal tenderness Lumbar Spine / Lower Back: Negative for lumbar spinal tenderness Extremity normal to inspection and full ROM General Extremety ED: Negative for tenderness Neuro oriented x3, CN's II-XII intact bilaterally, moves all extremities, no focal motor deficits and no sensory deficits noted Germán Coma Scale: document GCS findings Spontaneous Obeys Commands Oriented 15 Sensorium / Orientation: awake and alert Psych mental status grossly normal and thought process normal Skin Skin Narrative: Occipital scalp laceration 3cm linear Lesions: no lesions Rashes: no rashes MDM MDM MDM Narrative Medical decision making narrative: CT of the head was obtained in order to rule out intracranial injury, I reviewed the images and report which I agree with, negative for anything acute. Her laceration was repaired. She is feeling well overall. I do not think she needs a neck CT, she has some muscular pain very lateral almost to the shoulder in the trapezius but not the cervical portion, and no pain anywhere close to the midline she can move her head around without any discomfort there or neurologic symptoms so I do not think it is likely that she injured the bones. She is comfortable with discharge home given appropriate instructions for staple removal from her scalp laceration. Radiography Diagnostic Testing: Clinical Impression(s) from Imaging Studies Brain CT 03/21/24 00:32 IMPRESSION: 1. Moderate scalp hematoma in the left frontal region and scalp hematoma and laceration in the vertex region. 2. Mild generalized atrophy. Mild low density bilaterally in the deep white matter. This likely represents chronic small vessel ischemic changes in the deep white matter. Electronically Signed: Navarro Dorado MD at 1:20 EDT , Procedures Lacerations scalp: Length: 3 cm Depth: Sub Q Shape: Linear Prep: Sterile Conditions and Chlorhexadine Laceration repair: Irrigated, Lidocaine with epi (3cc 1%), Local and Skin sutures (padmini) Irrigated (ml): 60 Number of Sutures/[place]: 3 Discharge Plan Triage Chief Complaint: Fall ED Provider: Dima Myers Dx/Rx/DC Orders Clinical Impression: Closed head injury without loss of consciousness, Laceration of scalp, Scalp hematoma, Acute cervical myofascial strain Instructions: ED Laceration Scalp Stitches or [place] Prescriptions: No Action aspirin 81 mg tablet,chewable 81 mg PO DAILY lamotrigine 200 mg tablet 200 mg PO BID cyclobenzaprine 10 mg tablet 10 mg PO Q8H ammonium lactate 12 % cream 1 applic topical PRN calcium polycarbophil [Fiber Laxative (ca polycarbo)] 625 mg tablet 625 mg PO DAILY nystatin 100,000 unit/gram powder 1 applic topical DAILY losartan 25 mg tablet 25 mg PO BID rabeprazole 20 mg tablet,delayed release (DR/EC) 20 mg PO BID Qty: 60 12RF triamcinolone acetonide 0.1 % cream 1 applic topical DAILY PRN (Reason: PER DR) cholecalciferol (vitamin D3) 50 mcg (2,000 unit) capsule 50 mcg PO DAILY ibandronate 150 mg tablet 150 mg PO QMONTH Rx Instructions: 27th every month rosuvastatin 5 mg tablet 5 mg PO DAILY budesonide 0.25 mg/2 mL suspension for nebulization 0.25 mg inhalation BID gabapentin 600 mg tablet 600 mg PO Q8H formoterol fumarate 20 mcg/2 mL solution for nebulization 2 ml inhalation BID Zyrtec 10 mg capsule 10 mg PO DAILY PRN (Reason: allergy symptoms) hydrocodone-acetaminophen 5-325 mg tablet 1 tab PO Q8H Artificial Tears (cmc) 1 % drops 1 drp ophthalmic (eye) BID lurasidone [Latuda] 20 mg tablet 20 mg PO QPM Qty: 7 0RF Rx Instructions: Take 1 tablet every other day for 14 days, then DISCONTINUE; must administer with food (at least 350 calories) hydroxyzine pamoate 25 mg capsule 25 mg PO BID Qty: 60 2RF fluticasone propionate 1 SPRAY spray,suspension 2 spray NASAL DAILY multivitamin 1 EACH tablet 1 ea PO DAILY polyethylene glycol 3350 17 GM packet 17 g PO DAILY albuterol sulfate 1 INHALER inhaler 2 puff inhalation Q6H PRN PRN (Reason: Sob &/Or Wheezing) diclofenac sodium 1 APPLIC gel 1 applic topical Q6H PRN PRN (Reason: Pain) promethazine 25 MG tablet 25 mg PO Q6H PRN PRN (Reason: Nausea) cyanocobalamin (vitamin B-12) 1,000 mcg/mL solution 1,000 mcg IM Q2W acetaminophen [Acetaminophen Extra Strength] 500 mg Tablet 1,000 mg PO Q6H PRN (Reason: Pain) ferrous sulfate 325 mg (65 mg iron) tablet 325 mg PO DAILY meclizine 25 mg capsule 12.5 mg PO BID PRN (Reason: Dizziness) clopidogrel [Plavix] 75 mg Tablet 75 mg PO DAILY Calcium 500 with Vitamin D2 500 mg(1,250mg) -200 unit Tablet 1 tab PO BID lamotrigine [Lamictal] 200 mg tablet 200 mg PO QHS Rx Instructions: Take with 100mg tab aluminum-magnesium hydroxide 200-200 mg/5 mL suspension 15 ml PO Q4H PRN (Reason: dyspepsia) amlodipine 2.5 mg tablet 2.5 mg PO DAILY Artificial Tears (cmc) 1 % drops 2 drp EACH EYE BID hydrocortisone 2.5 % cream 1 applic topical TID PRN (Reason: skin irritation) lamotrigine 100 mg tablet 100 mg PO QHS Rx Instructions: take with 200mg tab levothyroxine 75 mcg tablet 75 mcg PO DAILY magnesium oxide 400 mg magnesium capsule 400 mg PO DAILY Primary Care Provider: Alex Self Referrals: Alex Self MD [Primary Care Provider] - 7 Days for suture removal (3 padmini in scalp) Print Language: [place] Disposition Disposition: Assisted Living
[2024-03-21 01:12] VITALS: BP 141/79; PULSE 80; RESP 19; O2SAT 94
[2024-03-21 02:00] VITALS: BP 166/88; PULSE 78; RESP 18; O2SAT 94
[2024-03-21 05:00] VITALS: BP 163/77; PULSE 74; RESP 16; O2SAT 97
== END 2024-03-21 06:23 | disposition home or self-care (01) ==
PROVIDERS: Emergency Provider Emergency Medicine; PCP Family Medicine; Visit Provider Emergency Medicine
DX: S01.01XA Laceration without foreign body of scalp, initial encounter (principal); S09.90XA Unspecified injury of head, initial encounter; S16.1XXA Strain of muscle, fascia and tendon at neck level, initial encounter; R51.9 Headache, unspecified; Z79.899 Other long term (current) drug therapy; K21.9 Gastro-esophageal reflux disease without esophagitis; I10 Essential (primary) hypertension; E78.00 Pure hypercholesterolemia, unspecified; E66.9 Obesity, unspecified; W19.XXXA Unspecified fall, initial encounter; J45.909 Unspecified asthma, uncomplicated
CPT/HCPCS: 12002; 70450; 99282

== ENCOUNTER 2024-03-30 09:40 | Day surgery (SDC) | payer MEDICARE, MEDICAID, SELFPAY ==
[2024-03-30 10:11] VITALS: BP 118/84; PULSE 77; RESP 18; TEMP 37.3; O2SAT 98; BMI 35.0
[2024-03-30] MEDS: Lactated Ringers 1,000 ML 15 ML IV (10:25)
--- NOTE | 2024-03-30 10:45 | EGD_PTH ---
PATIENT: STEVE FAGAN LOC: EN U#:[id number] AGE/SX: 69/F ROOM: RE03/30/[address]: Dr. Santiago Canas DO : 1955 BED: DIS: 03/30/2024 SPEC #: [id number] RECD: 03/30/24 13:54 STATUS: FOX JOSE #: [id number] GABY: 03/30/24 10:[address]: Santiago Canas DEPT: SURGICAL PATHOLOGY RECD BY: Carissa Richard ENTERED: 03/31/24 09:43 SP TYPE: EGD BIOPSY OT DR: Dr. Alex Self MD Tissues: Gastric mucous membrane Procedures: Surgery Specimen Level IV HEADER OPERATION: EGD with biopsies, electrohemostasis PRE-OP DIAGNOSIS: GERD, lactose intolerance, family history of colon cancer, irritable bowel TISSUE SUBMITTED: Gastric body polyp biopsy MICROSCOPIC DIAGNOSIS Gastric body polyp, biopsy: Fragments of inflamed and ulcerated hyperplastic/inflammatory polyp. / 04/03/2024 MICROSCOPIC DESCRIPTION Slides are reviewed. GROSS DESCRIPTION Received in fixative is one container labeled with the patient's name and designated Gastric polyp biopsy. The specimen consists of multiple irregular fragments of light howell soft tissue that in aggregate measure 2.0 x 0.5 x 0.1 cm. The specimen is totally submitted in one cassette. / 03/31/2024 TC:5 CPT:25273
--- NOTE | 2024-03-30 11:03 | HP.PCM_ITS ---
History and Physical Date of Admission: 03/30/24 69 F who presents to the office today for follow up. Prior GI LV .07.22 for management of anemia, weight loss, N/V, constipation, BRBPR (resolved), Heartburn (improving). Unable to tolerate omeprazole, esomeprazole, protonix, Pepcid or sucralfate r/t migraines/stomach pain. Recommend surgical management of reflux, does not want to pursue this. ? Colonoscopy 11.05.20 diverticulosis; internal hemorrhoids. ? EGD 11.19.2021 Grade 2 esophagitis; gastritis with antral erosions; duodenitis *BGI established 08.11.22 previously established with GI in [place]. FH brother colon cancer in 60s. continue MiraLAX and Metamucil. OV 11.24.22 requesting lactase prescription for lactose intolerance. Taking 5-10 lactase pills per meal with dairy. Currently taking Protonix BID but continues to have acid reflux. Admits to increased stress which increases reflux and emesis. OV 12.06.23 she continues to have N/V and abdominal cramping. Continues with fiberlax; she started [place] and has been having constipation since. Colonoscopy and EGD 12.07.23 Colon - One 19 mm polyp in the sigmoid colon, removed using injection-lift and a hot snare. Resected and retrieved. Diverticulosis in the recto-sigmoid colon, in the sigmoid colon, in the descending colon, at the splenic flexure, in the transverse colon, at the hepatic flexure and in the ascending colon. The examination was otherwise normal on direct and retroflexion views. EGD - Moderate Schatzki ring. Dilated. Large hiatal hernia. Chronic gastritis. Biopsied. A single gastric polyp. Resected and retrieved. No gross lesions in the first portion of the duodenum. OV 524 Continued symptoms from last visit. ROS Const Constitutional: Positive for fatigue, frequent falls, headache(s) and weakness; No fever(s) or weight change ENT ENT: Positive for headache(s); No difficulty swallowing Cardio Cardiology: Positive for leg pain with exertion Gastro GI: Positive for abdominal pain, bloating, change in bowel habits, constipation, heartburn, excessive flatus, nausea/dyspepsia and vomiting; No belching, change in stool character, coffee ground emesis, cramping, diarrhea, difficulty swallowing, feeling full early, incontinent of stools, Vomiting blood/hematemesis, Blood in stool, loose stools, Black,tarry stools, pain with swallowing or other Musc Musculoskeletal: Positive for abnormal gait, joint pain, back pain, joint swelling, muscle weakness, numbness, stiffness, tingling, Arthritis and leg pain with exertion Skin Skin: Positive for dry skin and itchy eyes; No yellowing of the eye Neuro Neurology: Positive for abnormal gait, weakness, frequent falls, headache(s), numbness, tingling, tremor(s) and Increased tone in limbs Psych Psychiatric: Positive for anxiety and Positive for depression Endo Endocrine: Positive for fatigue; No weight change Aller/Imm Allergy/Immunologic: Positive for itchy eyes Kendrick/Lymp Hematologic/Lymphatic: Positive for easy bruising; No easy bleeding Exam Const General: cooperative and comfortable Orientation: alert, awake and oriented x3 Other: talkative, mood is good Assessment and Plan Assessment and Plan (1) GERD (gastroesophageal reflux disease): Status: Chronic Plan: Patient says that she has an allergy to most proton pump inhibitors but she is still experiencing a lot of reflux because she is not on current medicines for reflux disease. She is also having some nausea and intermittent vomiting. Concerned that she may have elements of gastroparesis. She will need a gastric emptying study. Also because she is off PPI therapy will need to assess her upper GI tract for esophagitis, gastritis with duodenitis and also peptic ulcer disease possibly secondary to H. pylori. (2) Lactose intolerance: Status: Chronic Plan: Continue Lactaid pills as needed (3) Irritable bowel: Status: Chronic Plan: . She has irritable bowel syndrome with constipation predominance. We stressed to her that she should take her MiraLAX every day basis because she is.. We told her to go avoid Miralax with any lactose-containing products. (4) FH: colon cancer: Status: Acute Plan: She will need a repeat colonoscopy. As she is only 3-year recall due to strong family history of colon cancer and personal history of adenomatous polyps. Plan Findings from her EGD and colonoscopy : A. Gastric antral polyp, biopsy: Hyperplastic polyp, inflamed. Fungal organisms consistent with [place] species. See comment. B. Gastric body, biopsy: Moderate chronic gastritis with focal active gastritis. See comment. C. Sigmoid colon polyp, biopsy: Tubular adenoma. She will need repeat upper endoscopy to evaluate persistent [place] esophagitis and gastric polyp that needs to be removed. I have examined the patient and the H&P has been reviewed. There are no clinical changes since date of exam.
[2024-03-30 11:35] VITALS: BP 118/84; BP 126/48; PULSE 81; RESP 18; TEMP 36.7; O2SAT 96
--- NOTE | 2024-03-30 11:38 | OP.EGD_ITS ---
Patient Name: Paz Rosales Procedure Date: 03/30/2024 11:00 AM Date of : 1955 Age: 69 Procedure: Upper GI endoscopy Indications: Epigastric abdominal pain, Functional Dyspepsia, Melena Providers: Santiago Canas DO Medicines: Monitored Anesthesia Care Patient Profile: This is a 69 year old female. Refer to note in patient chart for documentation of history and physical. Patient has symptoms. Complications: No immediate complications. Procedure: Pre-Anesthesia Assessment: - Prior to the procedure, a History and Physical was performed, and patient medications and allergies were reviewed. The patient is competent. The risks and benefits of the procedure and the sedation options and risks were discussed with the patient. All questions were answered and informed consent was obtained. Patient identification and proposed procedure were verified by the physician. Mental Status Examination: normal. Prophylactic Antibiotics: The patient does not require prophylactic antibiotics. Prior Anticoagulants: The patient has taken no anticoagulant or antiplatelet agents. ASA Grade Assessment: III - A patient with severe systemic disease. After reviewing the risks and benefits, the patient was deemed in satisfactory condition to undergo the procedure. The anesthesia plan was to use monitored anesthesia care (MAC). Immediately prior to administration of medications, the patient was re-assessed for adequacy to receive sedatives. The heart rate, respiratory rate, oxygen saturations, blood pressure, adequacy of pulmonary ventilation, and response to care were monitored throughout the procedure. The physical status of the patient was re-assessed after the procedure. After obtaining informed consent, the endoscope was passed under direct vision. Throughout the procedure, the patient's blood pressure, pulse, and oxygen saturations were monitored continuously. The gastroscope was introduced through the mouth, and advanced to the second part of duodenum. The upper GI endoscopy was accomplished with ease. The patient tolerated the procedure well. Scope In: 11:13:16 AM Scope Out: 11:28:53 AM Total Procedure Duration Time 0 hours 15 minutes 37 seconds Findings: The examined esophagus was significantly tortuous. A large hiatal hernia was present. Two oozing linear gastric ulcers with a visible vessel were found in the gastric body. The largest lesion was 6 mm in largest dimension. Coagulation for hemostasis using heater probe and monopolar probe was successful. Estimated blood loss was minimal. Multiple 5 mm sessile polyps with bleeding and stigmata of recent bleeding were found in the gastric body. The polyp was removed with a hot snare. Resection and retrieval were complete. Verification of patient identification for the specimen was done. Estimated blood loss was minimal. The duodenal bulb was normal. Impression: - Tortuous esophagus. - Large hiatal hernia. - Oozing gastric ulcers with a visible vessel. Treated with a heater probe. Treated with a monopolar probe. - Multiple gastric polyps. Resected and retrieved. - Normal duodenal bulb. Recommendation: - Discharge patient to home. - Advance diet as tolerated. - Continue present medications. - Await pathology results. Procedure Code(s): --- Professional --- 17192, 59, Esophagogastroduodenoscopy, flexible, transoral; with control of bleeding, any method 98799, Esophagogastroduodenoscopy, flexible, transoral; with removal of tumor(s), polyp(s), or other lesion(s) by snare technique CPT copyright 2021 [employer]. All rights reserved. The codes documented in this report are preliminary and upon wide piece goods inspector review may be revised to meet current compliance requirements. Santiago Canas DO 03/30/2024 11:37:59 AM This report has been signed electronically. Number of Addenda: 0 Note Initiated On: 03/30/2024 11:00 AM
--- NOTE | 2024-03-30 11:38 | OP.CCLET_ITS ---
03/30/2024 Alex Self Re : Upper GI endoscopy procedure for Paz Brasherr Aramis This procedure was performed on March. My impressions and recommendations are as follows: Impressions : - Tortuous esophagus. - Large hiatal hernia. - Oozing gastric ulcers with a visible vessel. Treated with a heater probe. Treated with a monopolar probe. - Multiple gastric polyps. Resected and retrieved. - Normal duodenal bulb. Recommendations : - Discharge patient to home. - Advance diet as tolerated. - Continue present medications. - Await pathology results. My findings are described in the full procedure note, which is enclosed. If I can be of further assistance, please feel free to contact me at . Sincerely, Santiago Canas, 03/30/2024 11:37:59 AM This report has been signed electronically.
[2024-03-30 11:40] VITALS: BP 117/68; BP 118/84; PULSE 78; RESP 18; O2SAT 100
[2024-03-30 11:45] VITALS: BP 118/84; BP 128/61; PULSE 78; RESP 18; O2SAT 99
[2024-03-30 11:55] VITALS: BP 118/84; BP 126/81; PULSE 89; RESP 18; TEMP 36.9; O2SAT 100
--- NOTE | 2024-03-30 13:01 | SUR.PHASEII ---
patient states she is mad because nobody told her what medications to take this morning before procedure. Informed her that a PAT nurse spoke to someone on 03/22/24 and instructed them on what medications she was to take and they also faxed a list to [facility] on same date with the medications marked that she was to take. Patient states that the nurse did not give her the list until today and that she did not take any medications and it is the hospitals fault. Apologized to her that she did not received the list beforehand but procedure is already done. Advised her that if she was unhappy that she did not received the medication list then she should probably inform her nurse at [facility] that she was unhappy she did not receive the list before hand. Also instructed her several times that if Dr Xuan packer does not call her with her pathology results within a week to please call Dr Govea office to follow up on the results. Pt just kept repeating that the last time Dr Govea office did biopsies, they never called her with the results. This nurse wrote on patients discharge instruction to call Dr Xuan packer in a week if his office has not reached out. 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 Provided emotion support to the best of my ability for patient.
[2024-03-30 13:14] VITALS: BP 118/84
--- NOTE | 2024-03-30 13:15 | SUR.PHASEII ---
extra copy of discharge instruction given to patient at her request to give to [facility]
== END 2024-03-30 13:19 | disposition home or self-care (01) ==
LOC: EN 09:41 → AC 09:43
PROVIDERS: PCP Family Medicine; Referring Provider Family Medicine; Visit Provider Internal Medicine Gastroenterology
PROC: 0DJ08ZZ Inspection of Upper Intestinal Tract, Via Natural or Artificial Opening Endoscopic (ICD-10-PCS; CPT 43235; principal; 2024-03-30 10:40)
DX: K25.4 Chronic or unspecified gastric ulcer with hemorrhage (principal); K44.9 Diaphragmatic hernia without obstruction or gangrene; K21.9 Gastro-esophageal reflux disease without esophagitis; K31.7 Polyp of stomach and duodenum; E73.9 Lactose intolerance, unspecified; K58.1 Irritable bowel syndrome with constipation; Z80.0 Family history of malignant neoplasm of digestive organs; Z86.010 Personal history of colon polyps; Z79.02 Long term (current) use of antithrombotics/antiplatelets; Z79.82 Long term (current) use of aspirin; I10 Essential (primary) hypertension; E03.9 Hypothyroidism, unspecified; Z79.890 Hormone replacement therapy; E78.00 Pure hypercholesterolemia, unspecified
CPT/HCPCS: 43255; 43251; 88305; J2405

== ENCOUNTER 2024-04-04 01:50 | Emergency (ER) | payer MEDICARE, MEDICAID, SELFPAY ==
[2024-04-04 01:51] VITALS: BP 159/85; PULSE 71; TEMP 36.2; O2SAT 97; BMI 37.3
--- NOTE | 2024-04-04 01:59 | CT_ITS ---
EXAM: CT HEAD WITHOUT INTRAVENOUS CONTRAST CLINICAL INDICATION: trauma TECHNIQUE: Multiple axial images were obtained of the head without intravenous contrast. This CT exam was performed using one or more of the following dose reduction techniques: automated exposure control, adjustment of the mA and/or kV according to patient size, and/or use of iterative reconstruction technique. RADIATION DOSE: CTDIvol = 44.99 mGy, DLP = 863.60 mGy-cm COMPARISON: No relevant prior studies available. FINDINGS: BRAIN AND EXTRA-AXIAL SPACES: Mild generalized atrophy. Mild low density bilaterally in the deep white matter. No intra- or extra-axial hemorrhage. No evidence of acute infarct. No intracranial mass or mass effect. There is preservation of the wilkins/white matter interface. Posterior fossa structures are unremarkable. No hydrocephalus. Basal cisterns are patent. BONES/JOINTS: Anterior subluxation of the right head of the mandible. No discrete lytic or blastic abnormalities. SINUSES: Unremarkable as visualized. Clear. MASTOID AIR CELLS: Unremarkable. Clear. ORBITS: Visualized globes, extraocular muscles, optic nerves and retrobulbar fat appear unremarkable. CT/Brain/Head without Contrast IMPRESSION: 1. 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 2. Mild generalized atrophy. Mild low density bilaterally in the deep white matter. This likely represents chronic small vessel ischemic changes in the deep white matter. Electronically Signed: Navarro Dorado MD at 2:51 EDT ,
--- NOTE | 2024-04-04 01:59 | RAD_ITS ---
EXAM: XR LEFT SHOULDER COMPLETE, 2 OR MORE VIEWS CLINICAL INDICATION: injury TECHNIQUE: Two or more views of the left shoulder. COMPARISON: No relevant prior studies available. FINDINGS: BONES/JOINTS: Degenerative changes in the left shoulder. No acute fracture. No subluxation. Normal alignment. No sclerotic or destructive changes observed. SOFT TISSUES: Unremarkable. No soft tissue swelling or gas. No radiopaque foreign body. RAD/Shoulder min 2 Views IMPRESSION: Degenerative changes. No acute fracture or subluxation. Electronically Signed: Navarro Dorado MD at 2:50 EDT ,
--- NOTE | 2024-04-04 01:59 | RAD_ITS ---
EXAM: XR RIGHT HIP WITH PELVIS WHEN PERFORMED, 2 OR 3 VIEWS CLINICAL INDICATION: injury TECHNIQUE: Two or three views of the right hip with pelvis when performed. COMPARISON: No relevant prior studies available. FINDINGS: BONES/JOINTS: Degenerative changes in the lower lumbar spine. No displaced fracture. No destructive or sclerotic lesions. Note that overlapping bowel shadows may however obscure fine detail. Sacroiliac joint is unremarkable. No widening of the pubic symphysis. SOFT TISSUES: Unremarkable. No soft tissue swelling or gas. RAD/HIP, UNI W/ Pelvis 2-3 Views IMPRESSION: 1. No fractures. 2. Degenerative changes in the lower lumbar spine. Electronically Signed: Navarro Dorado MD at 2:49 EDT ,
--- NOTE | 2024-04-04 02:00 | ED.VIS.FALL ---
HPI HPI - Fall History of Present Illness Chief Complaint: Fall Informant: patient and EMS Narrative Narrative: 69-year-old female had an accidental mechanical fall tonight. She states she did not have her walker in reach, she went into her closet to get a basket of close down and lost her balance and fell. She hit her head, her right hip, and her left shoulder she states. Unknown how exactly she injured all of these particular structures together and she cannot give me the exact mechanism upon hitting the floor. She states she has chronic issues with the left shoulder and it was getting better but she did not have normal function of it and now it is worse since this fall tonight. She takes Plavix for history of peripheral arterial disease. She is not anticoagulated. She states her scalp hurts where she hit her head but she does not have a headache, nausea or vomiting, vision changes, nor did she lose consciousness. [facility] Medical History Lives in assisted living facility History of echocardiogram Scoliosis Anxiety disorder, unspecified Left rotator cuff tear Bipolar 1 disorder, depressed Primary osteoarthritis, left shoulder Diverticulitis Left rotator cuff tear Falls Peripheral vascular disease Kyphosis Anxiety GERD (gastroesophageal reflux disease) Migraine Asthma Irritable bowel Hypercholesteremia Anemia Hyperlipidemia Hypertension Bipolar 1 disorder Fibromyalgia HBP (high blood pressure) Hypothyroid Cerebral palsy Home Medications ?Medication ?Instructions ?Recorded ?Last Taken ?Type fluticasone propionate 50 2 spray NASAL DAILY congestion 01/03/16 03/24/21 History mcg/actuation nasal spray,suspension aspirin 81 mg chewable tablet 81 mg PO DAILY heart health 12/16/17 03/24/21 History multivitamin 1 ea PO DAILY supplement 12/02/18 03/24/21 History polyethylene glycol 3350 17 gram 17 g PO DAILY 06/22/19 03/22/21 History oral powder packet albuterol sulfate 90 mcg/actuation 2 puff inhalation Q6H PRN PRN Sob 04/16/20 11/05/20 History aerosol inhaler &/Or Wheezing diclofenac sodium 1 % topical gel 1 applic topical Q6H PRN PRN Pain 04/16/20 03/24/21 History promethazine 25 mg tablet 25 mg PO Q6H PRN PRN Nausea 01/07/21 03/23/21 History acetaminophen 500 mg tablet 1,000 mg PO BID Pain 09/18/21 03/30/24 History (Acetaminophen Extra Strength) lamotrigine 200 mg tablet 200 mg PO BID 01/14/22 Unknown History clopidogrel 75 mg tablet (Plavix) 75 mg PO DAILY 02/15/22 03/27/24 History calcium carb-ergocalciferol (vit 1 tab PO BID 04/16/22 Unknown History D2) 500 mg (1,250 mg)-200 unit tablet ammonium lactate 12 % topical cream 1 applic topical PRN 06/17/22 Unknown History calcium polycarbophil 625 mg 625 mg PO DAILY 06/17/22 Unknown History tablet (Fiber Laxative (calcium polycarbophil)) nystatin 100,000 unit/gram topical 1 applic topical DAILY PRN SKIN 06/17/22 Unknown History powder ferrous sulfate 325 mg (65 mg 325 mg PO DAILY 09/07/22 Unknown History iron) tablet losartan 25 mg tablet 25 mg PO BID 09/07/22 03/30/24 History meclizine 25 mg capsule 12.5 mg PO BID Dizziness 10/07/22 Unknown History rabeprazole 20 mg tablet,delayed 20 mg PO BID #60 tabs 11/24/22 03/30/24 Rx release cholecalciferol (vitamin D3) 50 50 mcg PO DAILY 12/03/22 Unknown History mcg (2,000 unit) capsule triamcinolone acetonide 0.1 % 1 applic topical DAILY PRN PER 12/03/22 Unknown History topical cream ibandronate 150 mg tablet 150 mg PO QMONTH 04/29/23 Unknown History budesonide 0.25 mg/2 mL suspension 0.25 mg inhalation BID 05/31/23 03/30/24 History for nebulization cyanocobalamin (vitamin B-12) 1,000 mcg IM Q2W supplement 05/31/23 Unknown History 1,000 mcg/mL injection solution gabapentin 600 mg tablet 400 mg PO TID 05/31/23 03/30/24 History rosuvastatin 5 mg tablet 5 mg PO QHS 05/31/23 Unknown History cetirizine 10 mg capsule (Zyrtec) 10 mg PO DAILY PRN allergy symptoms 06/16/23 Unknown History formoterol fumarate 20 mcg/2 mL 2 ml inhalation BID 06/16/23 03/30/24 History solution for nebulization cyclobenzaprine 10 mg tablet 10 mg PO Q8H muscle spasm 12/23/23 Unknown History hydrocodone-acetaminophen 5-325mg 1 tab PO Q8H pain 12/23/23 03/30/24 History 5mg-325mg aluminum-magnesium hydroxide 200 15 ml PO Q4H PRN dyspepsia 01/24/24 Unknown History mg-200 mg/5 mL oral suspension amlodipine 2.5 mg tablet 2.5 mg PO DAILY 01/24/24 03/30/24 History hydrocortisone 2.5 % topical cream 1 applic topical TID PRN skin 01/24/24 Unknown History irritation lamotrigine 100 mg tablet 300 mg PO QHS 01/24/24 03/30/24 History levothyroxine 75 mcg tablet 75 mcg PO DAILY 01/24/24 Unknown History Latuda 20 mg tablet (lurasidone) 20 mg PO QPM #7 tabs 03/14/24 Unknown Rx hydroxyzine pamoate 25 mg capsule 25 mg PO BID anxiety #60 caps 03/14/24 03/30/24 Rx carboxymethylcellulose sodium 1 % 1 drp ophthalmic (eye) BID 03/17/24 Unknown History eye drops (Artificial Tears (carboxymethylcellulose)) magnesium oxide 400 mg PO DAILY 03/21/24 03/29/24 History Allergy/AdvReac Type Severity Reaction Status Date / Time lithium Allergy Mild Vomiting Verified 03/22/24 15:20 propantheline Allergy Unknown unknown Verified 03/22/24 15:20 ziprasidone (From Geodon) Allergy Unknown unknown Verified 03/22/24 15:20 aspartame Allergy Itching Verified 03/22/24 15:20 carrot Allergy Food Verified 03/22/24 15:20 Allergy ciclesonide (From [place]) Allergy Shortness Verified 03/22/24 15:20 of breath diphenhydramine (From Allergy Other Verified 03/22/24 15:20 Benadryl) diphenhydramine HCl (From Allergy Rash Verified 03/22/24 15:20 Benadryl) imipramine Allergy Other Verified 03/22/24 15:20 levofloxacin (From Levaquin) Allergy Itching Verified 03/22/24 15:20 onabotulinumtoxinA (From Allergy Itching Verified 03/22/24 15:20 Botox) Penicillins Allergy Rash Verified 03/22/24 15:20 Seasonal Allergies: Uncoded Allergy NEEDS Verified 03/22/24 15:20 (environmental) FOLLOW-UP Sulfa (Sulfonamide Allergy NEEDS Verified 03/22/24 15:20 Antibiotics) FOLLOW-UP sulfamethoxazole (From Allergy NEEDS Verified 03/22/24 15:20 Bactrim) FOLLOW-UP topiramate (From Topamax) Allergy Other Verified 03/22/24 15:20 trimethoprim (From Bactrim) Allergy NEEDS Verified 03/22/24 15:20 FOLLOW-UP baclofen AdvReac Severe vomitting Verified 03/22/24 15:20 erythromycin base AdvReac Severe chest pain Verified 03/22/24 15:20 fentanyl AdvReac Severe Vomiting Verified 03/22/24 15:20 lubiprostone (From Amitiza) AdvReac Severe Vomiting Verified 03/22/24 15:20 ondansetron (From Zofran) AdvReac Severe Vomiting Verified 03/22/24 15:20 oxycodone AdvReac Severe vomitting Verified 03/22/24 15:20 oxymorphone AdvReac Severe ABD pain Verified 03/22/24 15:20 and vomiting pregabalin (From Lyrica) AdvReac Severe eyes would Verified 03/22/24 15:20 stay closed codeine AdvReac nausea Verified 03/22/24 15:20 lurasidone AdvReac Pain in Verified 03/22/24 15:20 joints sertraline (From Zoloft) AdvReac serotoin Verified 03/22/24 15:20 syndrome Family History Sister CVA (cerebral vascular accident) Afib Heart disease Liver disease Brother Colon cancer Father Emphysema lung Surgical History Hx of cholecystectomy History of appendectomy History of carpal tunnel release History of total right knee replacement History of total left knee replacement Social History adopted: No housing: assisted living facility current occupational status: disabled pets and animals: No Smoking Status: Never smoker alcohol intake: never substance use type: does not use ROS ROS ED Constitutional Constitutional ED: Denies chills or fever(s) Eyes Eyes: Denies change in vision or diplopia ENT ENT ED: Denies ear pain, epistaxis, facial pain or rhinorrhea Cardiovascular Cardiovascular: Denies chest pain or palpitations Respiratory/Chest Respiratory/Chest: Denies cough or dyspnea Gastrointestinal Gastrointestinal: Denies abdominal pain, diarrhea, melena, nausea or vomiting Genitourinary Genitourinary ED: Denies dysuria or hematuria Musculoskeletal Musculoskeletal: Reports extremity pain; Denies back pain or neck pain Integumentary Denies abscess, Abrasions, laceration or rash Neurologic Neurologic: Denies confusion, headache(s), paresthesias or weakness EXAM Physical Exam Const Vital Signs: 04/04/24 01:51 04/04/24 01:57 Temperature 97.1 F L Temperature Source Temporal Pulse Rate 71 Respiratory Effort Normal Respiratory Depth Normal Respiratory Pattern Normal Blood Pressure 159/85 H Blood Pressure Mean 109 Pulse Ox 97 Oxygen Delivery Method Room Air Room Air Positive well nourished, well developed and obese General Appearance ED: well developed and NAD Nutritional Appearance: obese HEENT Reports nasal mucous membranes and turbinates normal HEENT Narrative: Tender high right parietal scalp without hematoma, laceration, crepitance, depression. No other HEENT tenderness. atraumatic and tenderness Face and Sinus: Negative for facial tenderness Eyes PERRL and EOMs intact bilaterally Visual Acuity: other Other Details: no entrapment or pain with extraocular movements Neck full ROM and supple General: Negative for tenderness Chest Wall inspection of chest normal and palpation of chest normal Chest: symmetrical chest wall rise; Negative for crepitus or tenderness Resp normal respiratory effort and clear to auscultation bilaterally Percussion: other equal BS bilat Cardio no murmurs Rate: regular rate Rhythm: regular rhythm GI normal to inspection, nondistended, normoactive bowel sounds, soft to palpation and non-tender Back/Spine normal ROM Cervical Spine: Negative for cervical spine tenderness Thoracic Spine / Upper Back: Negative for thoracic spinal tenderness Lumbar Spine / Lower Back: Negative for lumbar spinal tenderness Extremity normal to inspection and full ROM Extremity Narrative: Tenderness anterior left shoulder but not in the lateral aspect of the proximal humerus. No deformity. Limited range of motion left shoulder due to pain, but able to do short arc without any difficulty. All other joints including the right hip range without discomfort or limitation. There is some tenderness in the area of the right greater trochanter, but I think the focus of the tenderness is more posterior in the buttock/gluteus medius but obesity limits this part of the exam. Pelvis stable AP compression. General Extremety ED: Yes tenderness Neuro oriented x3, CN's II-XII intact bilaterally, moves all extremities, no focal motor deficits and no sensory deficits noted [place] Coma Scale: document GCS findings Spontaneous Obeys Commands Oriented 15 Sensorium / Orientation: awake and alert Psych mental status grossly normal and thought process normal Skin no wounds Lesions: no lesions Rashes: no rashes MDM MDM MDM Narrative Medical decision making narrative: CT of the head was obtained in order to rule out intracranial injury, I reviewed the images and report which I agree with, negative for anything acute. It is noted that radiology is interpreting anterior subluxation of the right head of the mandible. Patient does not have any tenderness here, malocclusion, or symptoms or problems talking so I think this is probably not an acute finding. Additionally, 3 views x-ray series of the left shoulder on my interpretation are negative for acute fracture or dislocation, and 3 view x-ray series of the right hip including AP pelvis negative for acute fracture or dislocation on my interpretation. We were able to get the patient out of bed she is able to stand on each leg individually and both and take some steps without any significant increase in her discomfort. I am at a low suspicion for an occult hip injury/fracture here, I think this is more muscular in her buttock and external rotators and I am comfortable with her going back home which she is as well. Radiography Diagnostic Testing: Clinical Impression(s) from Imaging Studies Brain CT 04/04/24 01:59 IMPRESSION: 1. 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 2. Mild generalized atrophy. Mild low density bilaterally in the deep white matter. This likely represents chronic small vessel ischemic changes in the deep white matter. Electronically Signed: Navarro Dorado MD at 2:51 EDT , Hip/Pelvis X-Ray 04/04/24 01:59 IMPRESSION: 1. No fractures. 2. Degenerative changes in the lower lumbar spine. Electronically Signed: Navarro Dorado MD at 2:49 EDT , Shoulder X-Ray 04/04/24 01:59 IMPRESSION: Degenerative changes. No acute fracture or subluxation. Electronically Signed: Navarro Dorado MD at 2:50 EDT Reading Location ID and State: [facility] / [place] Tel , Service support , Discharge Plan Triage Chief Complaint: Fall ED Provider: Dima Myers Dx/Rx/DC Orders Clinical Impression: Closed head injury without loss of consciousness, Contusion of hip, right, Contusion of left shoulder, Fall from slip, trip, or stumble Instructions: ED Hip Contusion Prescriptions: No Action aspirin 81 mg tablet,chewable 81 mg PO DAILY lamotrigine 200 mg tablet 200 mg PO BID cyclobenzaprine 10 mg tablet 10 mg PO Q8H ammonium lactate 12 % cream 1 applic topical PRN calcium polycarbophil [Fiber Laxative (ca polycarbo)] 625 mg tablet 625 mg PO DAILY nystatin 100,000 unit/gram powder 1 applic topical DAILY PRN (Reason: SKIN) losartan 25 mg tablet 25 mg PO BID rabeprazole 20 mg tablet,delayed release (DR/EC) 20 mg PO BID Qty: 60 12RF triamcinolone acetonide 0.1 % cream 1 applic topical DAILY PRN (Reason: PER DR) cholecalciferol (vitamin D3) 50 mcg (2,000 unit) capsule 50 mcg PO DAILY ibandronate 150 mg tablet 150 mg PO QMONTH Rx Instructions: 27th every month rosuvastatin 5 mg tablet 5 mg PO QHS budesonide 0.25 mg/2 mL suspension for nebulization 0.25 mg inhalation BID gabapentin 600 mg tablet 400 mg PO TID formoterol fumarate 20 mcg/2 mL solution for nebulization 2 ml inhalation BID Zyrtec 10 mg capsule 10 mg PO DAILY PRN (Reason: allergy symptoms) hydrocodone-acetaminophen 5-325 mg tablet 1 tab PO Q8H Artificial Tears (cmc) 1 % drops 1 drp ophthalmic (eye) BID lurasidone [Latuda] 20 mg tablet 20 mg PO QPM Qty: 7 0RF Rx Instructions: Take 1 tablet every other day for 14 days, then DISCONTINUE; must administer with food (at least 350 calories) hydroxyzine pamoate 25 mg capsule 25 mg PO BID Qty: 60 2RF fluticasone propionate 1 SPRAY spray,suspension 2 spray NASAL DAILY multivitamin 1 EACH tablet 1 ea PO DAILY polyethylene glycol 3350 17 GM packet 17 g PO DAILY albuterol sulfate 1 INHALER inhaler 2 puff inhalation Q6H PRN PRN (Reason: Sob &/Or Wheezing) diclofenac sodium 1 APPLIC gel 1 applic topical Q6H PRN PRN (Reason: Pain) promethazine 25 MG tablet 25 mg PO Q6H PRN PRN (Reason: Nausea) cyanocobalamin (vitamin B-12) 1,000 mcg/mL solution 1,000 mcg IM Q2W acetaminophen [Acetaminophen Extra Strength] 500 mg Tablet 1,000 mg PO BID ferrous sulfate 325 mg (65 mg iron) tablet 325 mg PO DAILY meclizine 25 mg capsule 12.5 mg PO BID clopidogrel [Plavix] 75 mg Tablet 75 mg PO DAILY Calcium 500 with Vitamin D2 500 mg(1,250mg) -200 unit Tablet 1 tab PO BID aluminum-magnesium hydroxide 200-200 mg/5 mL suspension 15 ml PO Q4H PRN (Reason: dyspepsia) amlodipine 2.5 mg tablet 2.5 mg PO DAILY hydrocortisone 2.5 % cream 1 applic topical TID PRN (Reason: skin irritation) lamotrigine 100 mg tablet 300 mg PO QHS Rx Instructions: take with 200mg tab levothyroxine 75 mcg tablet 75 mcg PO DAILY magnesium oxide 400 mg magnesium capsule 400 mg PO DAILY Primary Care Provider: Alex Self Referrals: Alex Self MD [Primary Care Provider] - As Needed (Or your orthopedic surgeon if your shoulder does not improve with time) Print Language: Romanian Disposition Disposition: Home, Self Care
[2024-04-04 03:16] VITALS: BP 146/87; PULSE 70; RESP 18; TEMP 36.9; O2SAT 98
--- NOTE | 2024-04-04 03:24 | ED.RN ---
I CALLED REPORT TO [facility] AT THIS TIME
[2024-04-04 03:50] VITALS: BP 118/55; PULSE 94; RESP 16; O2SAT 99
[2024-04-04 05:00] VITALS: BP 154/66; PULSE 62; RESP 18; O2SAT 97
== END 2024-04-04 06:40 | disposition home or self-care (01) ==
PROVIDERS: Emergency Provider Emergency Medicine; PCP Family Medicine; Visit Provider Emergency Medicine
DX: S09.8XXA Other specified injuries of head, initial encounter (principal); K21.9 Gastro-esophageal reflux disease without esophagitis; J45.909 Unspecified asthma, uncomplicated; I10 Essential (primary) hypertension; E78.5 Hyperlipidemia, unspecified; E66.9 Obesity, unspecified; S70.01XA Contusion of right hip, initial encounter; S40.012A Contusion of left shoulder, initial encounter; W01.0XXA Fall on same level from slipping, tripping and stumbling without subsequent striking against object, initial encounter
CPT/HCPCS: 70450; 73030; 73502; 99282; J7030; A4216

== ENCOUNTER → 2024-06-01 | Outpatient (REF) | payer MEDICARE, MEDICAID, SELFPAY ==
[2024-06-01 07:46] LABS: Hemoglobin 12.6 g/dL (12.0-15.0); Mean Corp Hgb Conc 33.2 g/dL (32-36); Mean Corpuscular Hgb 32.8 pg (27.0-32.0); Mean Platelet Vol. 8.6 fl (6.2-12.0); Platelet Count 230 K/mm3 (150-450); RBC Distribution Width CV 12.6 % (11.6-14.6); RBC Distribution Width SD 45.3 fl (35.1-43.9); Red Blood Count 3.84 M/mm3 (4.2-5.4); White Blood Count 4.1 K/mm3 (4.4-11.0)
[2024-06-01 08:26] LABS: ALB/GLOB Ratio 1.2 RATIO (0.9-2.4); AST(SGOT) 21 U/L (15-37); Alanine Aminotransfer ALT/SGPT 24 U/L (13-56); Albumin, Serum 3.1 g/dL (3.2-5.0); Alkaline Phosphatase 86 U/L (45-117); Anion Gap 3 (5-15); BUN 9 mg/dL (7-18); BUN/Creat Ratio 11.2 RATIO (10-20); Chloride 107 mmol/L (98-107); Cholesterol 150 mg/dL (200); Creatinine, Serum 0.81 mg/dL (0.55-1.02); EST Glomerular Filtration Rate 75 mL/min (>60); Est Glom Filt Rate - Afr Amer 91 mL/min (>60); Ferritin 59 ng/mL (8-252); Free T3 2.8 pg/mL (2.18-3.98); Globulin 2.6 g/dL (2.2-4.2); Glucose 89 mg/dL (74-106); High Density Lipoprotein 79 mg/dL; Potassium 4.2 mmol/L (3.5-5.1); Protein, Total 5.7 g/dL (6.4-8.2); Sodium Level 140 mmol/L (136-145); Thyroid Stim Hormone (TSH) 1.87 uIU/mL (0.358-3.74); Triglycerides 48 mg/dL; Very Low Density Lipoprotein 10 mg/dL (5-40)
== END ==
LOC: OLS.SWAL 05:00
PROVIDERS: PCP Family Medicine
DX: D64.9 Anemia, unspecified (principal); I10 Essential (primary) hypertension; E78.5 Hyperlipidemia, unspecified; E03.9 Hypothyroidism, unspecified
CPT/HCPCS: 36415; 80053; 80061; 82728; 84443; 84481; 85027

== ENCOUNTER → 2024-06-05 | Outpatient (REF) | payer MEDICARE, MEDICAID, SELFPAY ==
[2024-06-05 09:09] LABS: Absolute Lymphocyte Count 1.36 X10^3/uL (0.83-4.51); Absolute Neutrophil Count 2.8 X10^3/uL (2.0-7.7); Basophil# 0.04 X10^3/uL; Basophil% 0.8 % (0-1); Eosinophil# 0.08 X10^3/uL; Eosinophils% 1.6 % (0-5); Hemoglobin 13.9 g/dL (12.0-15.0); Lymphocyte # 1.36 X10^3/ul (0.83-4.51); Lymphocyte % 27.6 % (19-41); Mean Corp Hgb Conc 33.1 g/dL (32-36); Mean Corpuscular Hgb 32.5 pg (27.0-32.0); Mean Corpuscular Volume 98.1 fL (81-99); Mean Platelet Vol. 8.7 fl (6.2-12.0); Monocyte# 0.62 X10^3/uL; Monocyte% 12.6 % (0-10); NRBC Flagged by Analyzer 0 % (0-5); Platelet Count 266 K/mm3 (150-450); RBC Distribution Width CV 12.2 % (11.6-14.6); Red Blood Count 4.28 M/mm3 (4.2-5.4); White Blood Count 4.9 K/mm3 (4.4-11.0)
== END ==
LOC: OLS.SWAL 05:00
PROVIDERS: PCP Family Medicine; Visit Provider Family Medicine
DX: I10 Essential (primary) hypertension (principal); E78.5 Hyperlipidemia, unspecified
CPT/HCPCS: 36415; 85025

== ENCOUNTER → 2024-06-30 | Outpatient (REF) | payer MEDICARE, MEDICAID, SELFPAY ==
[2024-06-30 09:15] LABS: Creatinine, Serum 0.92 mg/dL (0.55-1.02); EST Glomerular Filtration Rate 65 mL/min (>60); Est Glom Filt Rate - Afr Amer 79 mL/min (>60)
== END ==
LOC: OLS.SWAL 05:00
PROVIDERS: PCP Family Medicine; Visit Provider Psychiatry & Neurology Neurology
DX: I10 Essential (primary) hypertension (principal); G25.5 Other chorea; G24.01 Drug induced subacute dyskinesia
CPT/HCPCS: 36415; 82565

== ENCOUNTER 2024-07-21 21:54 | Inpatient (IN) | payer MEDICARE, MEDICAID, SELFPAY ==
[2024-07-21] VITALS (9 sets, daily range): BP systolic 96–144; BP diastolic 60–82; PULSE 43–49; RESP 16–18; TEMP 36.4–36.6; O2SAT 90–100; BMI 32.4; BMI 31.0
--- NOTE | 2024-07-21 21:55 | CT_ITS ---
INDICATION: STROKE EXAMINATION: CT BRAIN - CT Head Stroke Protocol W/O Contrast Injection TECHNIQUE: Multiple axial images were obtained of the head without intravenous contrast. A radiation dose optimization technique was used for this scan. IV Contrast dosage and agent: None. COMPARISON: April 04, 2024: FINDINGS: BRAIN PARENCHYMA: No intra- or extra-axial hemorrhage. No evidence of acute infarct. No intracranial mass or mass effect. Patchy moderate periventricular and subcortical white matter hypodense chronic small vessel white matter ischemic change. There is preservation of the wilkins/white matter interface. Posterior fossa structures are unremarkable. Carotid and vertebral atherosclerosis. CSF SPACES: Mild global cerebral volume loss. No hydrocephalus. Basal cisterns are patent. CALVARIUM, SKULL BASE, PARANASAL SINUSES AND MASTOID AIR CELLS: No acute osseous finding. [place] sinuses are clear. Mastoid air cells are clear. ORBITS: Both globes, extraocular muscles, optic nerves and retrobulbar fat appear unremarkable. ASPECTS Score for Acute Strokes: 10 CT/STROKE Brain/Head without Cont IMPRESSION: No CT evidence of acute intracranial hemorrhage or injury. Moderate senescent changes with atherosclerosis. N.B. : The above Results were Read Back by Armand Middleton MD to Dima Myers MD, and understanding confirmed on 07/21/2024 22:15:10 (ET). Electronically Signed: Armand Middleton MD at 22:15 EDT ,
--- NOTE | 2024-07-21 21:55 | EKG12_ITS ---
Test Reason : DYSRHYTHMIA Blood Pressure : / mmHG Vent. Rate : 042 BPM Atrial Rate : 042 BPM P-R Int : 146 ms QRS Dur : 092 ms QT Int : 556 ms P-R-T Axes : -06 043 073 degrees QTc Int : 464 ms Marked sinus bradycardia Nonspecific T wave abnormality Abnormal ECG Confirmed by Navarro Shaw ([id number]), photo editor MARGARITO MCCARTNEY ([id number]) on 07/24/2024 10:49:25 AM Referred By: Confirmed By:Navarro Shaw
--- NOTE | 2024-07-21 21:56 | CT_ITS ---
INDICATION: Neuro deficit, acute, stroke suspected EXAMINATION: CTA CAROTIDS AND BRAIN - CTA Head and Neck Stroke W/ Contrast (and W/O if performed) TECHNIQUE: Routine CTA of the head and neck was performed with post processing of the angiographic images for volumetric reconstructions. In addition, images were obtained of the [place]. [place]et criteria using the distal ICAs for comparison were used for evaluation of stenoses. 3D reconstructions were reviewed. A radiation dose optimization technique was used for this scan. IV Contrast dosage and agent: 100 mL [id number] COMPARISON: None. FINDINGS: --NECK: AORTIC ARCH AND BRANCHES: Three-vessel aortic arch with mild atherosclerosis. No ectasia or dissection. RIGHT CCA: Mild scattered atherosclerosis. No occlusion, significant stenosis or dissection. RIGHT ICA: Mild bifurcation atherosclerosis. No occlusion, significant stenosis or dissection. LEFT CCA: Mild scattered atherosclerosis. No occlusion, significant stenosis or dissection. LEFT ICA: Mild bifurcation atherosclerosis. No occlusion, significant stenosis or dissection. RIGHT VERTEBRAL ARTERY: No occlusion, significant stenosis or dissection. LEFT VERTEBRAL ARTERY: No occlusion, significant stenosis or dissection. NECK SOFT TISSUES: Unremarkable. LUNG APICES: Clear. BONES: Unremarkable. --HEAD: --Anterior circulation: ICAs: Mild bilateral cavernous carotid sclerosis. No significant stenosis at the intracranial/visualized segments. ACAs: No significant stenosis at the visualized segments. ACOM: Present. MCAs: No significant stenosis at the visualized segments. --Posterior circulation: PCOMs: Not seen dredge pumper: No significant stenosis at the visualized segments. BASILAR ARTERY: No significant stenosis. VERTEBRAL ARTERIES: No significant stenosis at the intradural/visualized segments. No evidence of intracranial aneurysm or vascular malformation. CT/STROKE CTA Head AND Neck W/Con IMPRESSION: Scattered carotid atherosclerosis without cervical or proximal intracranial vascular occlusion or focal flow-limiting stenosis N.B. : The above Results were Read Back by Armand Middleton MD to Dima Myers MD, and understanding confirmed on 07/21/2024 22:46:26 (ET). Electronically Signed: Armand Middleton MD at 22:48 EDT ,
--- NOTE | 2024-07-21 22:06 | ED.VIS.STROK ---
HPI History of Present Illness Chief Complaint: Stroke Alert Informant: patient and EMS Narrative Narrative: C9-year-old female sent from long term for concern for stroke. She was activated as a prehospital stroke alert for left-sided weakness and a left-sided facial droop, arrives around 2200, last seen normal 1600 according to EMS, they state they received very little relevant history from the nurses at the long term except for that. She had an old stroke remotely, unknown if patient has deficits that are pre-existing. She denies any headache or chest discomfort or dyspnea right now. She states she has problems lifting her left arm because of pain. [facility] Medical History (Updated 07/21/24 @ 23:[address] Dima Myers MD) Anxiety and depression CKD (chronic kidney disease), stage II Lives in assisted living facility Scoliosis Left rotator cuff tear Bipolar 1 disorder, depressed Primary osteoarthritis, left shoulder Left rotator cuff tear Peripheral vascular disease Kyphosis GERD (gastroesophageal reflux disease) Migraine Asthma Irritable bowel Hypercholesteremia Anemia Hyperlipidemia Hypertension Bipolar 1 disorder Fibromyalgia Hypothyroid Cerebral palsy Home Medications ?Medication ?Instructions ?Recorded ?Last Taken ?Type fluticasone propionate 50 2 spray NASAL DAILY congestion 01/03/16 03/24/21 History mcg/actuation nasal spray,suspension aspirin 81 mg chewable tablet 81 mg PO DAILY heart health 12/16/17 03/24/21 History multivitamin 1 ea PO DAILY supplement 12/02/18 03/24/21 History polyethylene glycol 3350 17 gram 17 g PO DAILY 06/22/19 03/22/21 History oral powder packet albuterol sulfate 90 mcg/actuation 2 puff inhalation Q6H PRN PRN Sob 04/16/20 11/05/20 History aerosol inhaler &/Or Wheezing diclofenac sodium 1 % topical gel 1 applic topical Q6H PRN PRN Pain 04/16/20 03/24/21 History promethazine 25 mg tablet 25 mg PO Q6H PRN PRN Nausea 01/07/21 03/23/21 History acetaminophen 500 mg tablet 1,000 mg PO BID Pain 09/18/21 03/30/24 History (Acetaminophen Extra Strength) lamotrigine 200 mg tablet 200 mg PO BID 01/14/22 Unknown History clopidogrel 75 mg tablet (Plavix) 75 mg PO DAILY 02/15/22 03/27/24 History calcium carb-ergocalciferol (vit 1 tab PO BID 04/16/22 Unknown History D2) 500 mg (1,250 mg)-200 unit tablet ammonium lactate 12 % topical cream 1 applic topical PRN 06/17/22 Unknown History calcium polycarbophil 625 mg 625 mg PO DAILY 06/17/22 Unknown History tablet (Fiber Laxative (calcium polycarbophil)) nystatin 100,000 unit/gram topical 1 applic topical DAILY PRN SKIN 06/17/22 Unknown History powder ferrous sulfate 325 mg (65 mg 325 mg PO DAILY 09/07/22 Unknown History iron) tablet losartan 25 mg tablet 25 mg PO BID 09/07/22 03/30/24 History rabeprazole 20 mg tablet,delayed 20 mg PO BID #60 tabs 11/24/22 03/30/24 Rx release cholecalciferol (vitamin D3) 50 50 mcg PO DAILY 12/03/22 Unknown History mcg (2,000 unit) capsule triamcinolone acetonide 0.1 % 1 applic topical DAILY PRN PER 12/03/22 Unknown History topical cream ibandronate 150 mg tablet 150 mg PO QMONTH 04/29/23 Unknown History cyanocobalamin (vitamin B-12) 1,000 mcg IM Q2W supplement 05/31/23 Unknown History 1,000 mcg/mL injection solution gabapentin 600 mg tablet 400 mg PO TID 05/31/23 03/30/24 History rosuvastatin 5 mg tablet 5 mg PO QHS 05/31/23 Unknown History cetirizine 10 mg capsule (Zyrtec) 10 mg PO DAILY PRN allergy symptoms 06/16/23 Unknown History formoterol fumarate 20 mcg/2 mL 2 ml inhalation BID 06/16/23 03/30/24 History solution for nebulization hydrocodone-acetaminophen 5-325mg 1 tab PO Q8H pain 12/23/23 03/30/24 History 5mg-325mg aluminum-magnesium hydroxide 200 15 ml PO Q4H PRN dyspepsia 01/24/24 Unknown History mg-200 mg/5 mL oral suspension hydrocortisone 2.5 % topical cream 1 applic topical TID PRN skin 01/24/24 Unknown History irritation lamotrigine 100 mg tablet 300 mg PO QHS 01/24/24 03/30/24 History levothyroxine 75 mcg tablet 75 mcg PO DAILY 01/24/24 Unknown History hydroxyzine pamoate 25 mg capsule 25 mg PO BID anxiety #60 caps 03/14/24 03/30/24 Rx carboxymethylcellulose sodium 1 % 1 drp ophthalmic (eye) BID 03/17/24 Unknown History eye drops (Artificial Tears (carboxymethylcellulose)) magnesium oxide 400 mg PO DAILY 03/21/24 03/29/24 History budesonide 0.25 mg/2 mL suspension 0.25 mg inhalation DAILY 04/20/24 Unknown History for nebulization sucralfate 1 gram tablet (Carafate) 1 g PO BID #60 tabs 05/16/24 Unknown Rx albuterol sulfate 2.5 mg/3 mL 2.5 mg inhalation BID 07/21/24 Unknown History (0.083 %) solution for nebulization atogepant 30 mg tablet (Qulipta) 30 mg PO DAILY 07/21/24 Unknown History lactase 3,000 unit tablet (Dairy 15,000 unit PO TIDCM 07/21/24 Unknown History Relief) meclizine 12.5 mg tablet 12.5 mg PO BID 07/21/24 Unknown History tizanidine 2 mg tablet 6 mg PO QHS 07/21/24 Unknown History tizanidine 4 mg tablet 4 mg PO DAILY 07/21/24 Unknown History valbenazine 40 mg capsule 40 mg PO DAILY 07/21/24 Unknown History (Ingrezza) Allergy/AdvReac Type Severity Reaction Status Date / Time lithium Allergy Mild Vomiting Verified 07/21/24 22:12 propantheline Allergy Unknown unknown Verified 07/21/24 22:12 ziprasidone (From Geodon) Allergy Unknown unknown Verified 07/21/24 22:12 aspartame Allergy Itching Verified 07/21/24 22:12 carrot Allergy Food Verified 07/21/24 22:12 Allergy ciclesonide (From [place]) Allergy Shortness Verified 07/21/24 22:12 of breath diphenhydramine (From Allergy Other Verified 07/21/24 22:12 Benadryl) diphenhydramine HCl (From Allergy Rash Verified 07/21/24 22:12 Benadryl) imipramine Allergy Other Verified 07/21/24 22:12 levofloxacin (From Levaquin) Allergy Itching Verified 07/21/24 22:12 onabotulinumtoxinA (From Allergy Itching Verified 07/21/24 22:12 Botox) Penicillins Allergy Rash Verified 07/21/24 22:12 Seasonal Allergies: Uncoded Allergy NEEDS Verified 07/21/24 22:12 (environmental) FOLLOW-UP Sulfa (Sulfonamide Allergy NEEDS Verified 07/21/24 22:12 Antibiotics) FOLLOW-UP sulfamethoxazole (From Allergy NEEDS Verified 07/21/24 22:12 Bactrim) FOLLOW-UP topiramate (From Topamax) Allergy Other Verified 07/21/24 22:12 trimethoprim (From Bactrim) Allergy NEEDS Verified 07/21/24 22:12 FOLLOW-UP baclofen AdvReac Severe vomitting Verified 07/21/24 22:12 erythromycin base AdvReac Severe chest pain Verified 07/21/24 22:12 fentanyl AdvReac Severe Vomiting Verified 07/21/24 22:12 lubiprostone (From Amitiza) AdvReac Severe Vomiting Verified 07/21/24 22:12 ondansetron (From Zofran) AdvReac Severe Vomiting Verified 07/21/24 22:12 oxycodone AdvReac Severe vomitting Verified 07/21/24 22:12 oxymorphone AdvReac Severe ABD pain Verified 07/21/24 22:12 and vomiting pregabalin (From Lyrica) AdvReac Severe eyes would Verified 07/21/24 22:12 stay closed codeine AdvReac nausea Verified 07/21/24 22:12 lurasidone AdvReac Pain in Verified 07/21/24 22:12 joints sertraline (From Zoloft) AdvReac serotoin Verified 07/21/24 22:12 syndrome Family History Sister CVA (cerebral vascular accident) Afib Heart disease Liver disease Brother Colon cancer Father Emphysema lung Surgical History Hx of cholecystectomy History of appendectomy History of carpal tunnel release History of total right knee replacement History of total left knee replacement Social History adopted: No housing: assisted living facility current occupational status: disabled pets and animals: No Smoking Status: Never smoker alcohol intake: never substance use type: does not use ROS ROS ED Constitutional Constitutional ED: Denies chills or fever(s) Eyes Eyes: Denies change in vision or diplopia ENT ENT ED: Denies rhinorrhea or sore throat Cardiovascular Cardiovascular: Denies chest pain or palpitations Respiratory/Chest Respiratory/Chest: Denies cough or dyspnea Gastrointestinal Gastrointestinal: Denies abdominal pain, diarrhea, nausea or vomiting Genitourinary Genitourinary ED: Denies dysuria or hematuria Musculoskeletal Musculoskeletal: Reports other Details: Left shoulder pain chronic ; Denies back pain or neck pain Integumentary Denies abscess or rash Neurologic Neurologic: Denies headache(s) or paresthesias Psychiatric Psychiatric: Denies anxiety or suicidal thoughts EXAM Physical Exam Const Vital Signs: 07/21/24 21:55 07/21/24 21:55 07/21/24 21:56 Temperature 97.5 F L Temperature Source Oral Pulse Rate 43 L 43 L Respiratory Rate 18 16 Blood Pressure Blood Pressure Mean Pulse Ox 98 93 93 Oxygen Delivery Method Room Air Room Air Room Air 07/21/24 21:56 07/21/24 22:25 07/21/24 22:30 Temperature Temperature Source Pulse Rate 44 L 45 L 45 L Respiratory Rate 16 18 18 Blood Pressure 126/70 H 96/60 117/82 H Blood Pressure Mean 88 72 93 Pulse Ox 90 100 99 Oxygen Delivery Method Room Air Room Air Room Air Positive well nourished and well developed General Appearance ED: well developed and NAD HEENT Reports moist mucous membranes normocephalic and atraumatic Eyes PERRL and EOMs intact bilaterally Eyes Narrative: Normal visual field exam Neck full ROM and supple Resp normal respiratory effort and clear to auscultation bilaterally Cardio regular rate and regular rhythm Rate: bradycardia Heart Sounds: murmur systolic II/ crescendo-decrescendo left sternal border GI non-tender and non-distended Auscultation: normoactive bowel sounds Palpation: soft Back/Spine no CVA tenderness General Back: other FROM Extremity normal to inspection Extremity Narrative: Limited range of motion left shoulder due to pain, but there is no neurologic drift General Extremety ED: Negative for edema, pulses abnormal or tenderness General Extremity: Negative for edema or pulses abnormal Neuro oriented x3 and no sensory deficits noted Neuro Narrative: There is a left lower facial droop that is relatively mild, forehead raises symmetrically. Otherwise cranial nerve exam normal. She has ataxia when attempting to perform [id number] and [id number]-[id number] on both upper extremities and the left lower extremity. No lateralizing sensory deficits, no hemineglect, answers questions appropriately, total NIHSS 3 see below. Sensorium / Orientation: awake and alert Motor Exam: strength 5/5 throughout Psych Psych Narrative: Rambling. Flight of ideas. Skin no rashes or lesions noted and no wounds NIHSS NIHSS Initial: 1a Level of Consciousness: 0 1b LOC Questions (Score 2 if aphasic/stupor): 0 1c LOC Commands (Only score 1st attempt): 0 2 Best Gaze (If aphasic, use reflexive mvmts.): 0 3 Visual: 0 4 Facial Palsy: 1 5 Motor Arm Right (UN = amputation/fusion): 0 5 Motor Arm Left: 0 6 Motor Leg Right: 0 6 Motor Leg Left: 0 7 Limb ataxia (Only + if out of proportion): 2 8 Sensory (Aphasia/stupor=0 or 1, coma=2): 0 9 Best Language: 0 10 Dysarthria (mute, coma=2, intubated=UN): 0 11 Extinction and Inattention (only scored if +): 0 Total Score: 3 MDM MDM MDM Narrative Medical decision making narrative: Patient seen in the EMS bay along with EMS, airway stable patient talking with his no garbled speech, safe to go to CT directly. She does have asymmetric strength with some weakness on the left and a left facial droop. When she was brought back to the room, I did a more thorough neurologic evaluation and complete NIH, she is not a thrombolytic candidate due to timing but she had CT and CT angiography of the head and neck and radiology. I reviewed those imaging as well as the report which I agree with and spoke with the radiologist about them both. Both negative, no LVO. Patient has significant ataxia on exam with all 4 extremities. She does much better with regards to the right lower extremity. Other than that only focal deficit is her left lower facial droop, her forehead moves symmetrically without weakness and she has no numbness. She states from her old stroke she had no deficits. She states at first that she has been having left rotator cuff pain for some time and it makes it hard for her to raise her left arm sometimes. In the ambulance bay she was telling me that she was not able to lift her left leg, but she was in an awkward position sitting up on the cot, and when I evaluated her back in the room she lifted it without any difficulty or drift. She states that she was diagnosed with possible Tourette's syndrome in the past and then tells me that neurology recommended that she see psychiatry. It is unknown how much of this is acute. She does not meet criteria for thrombolytics or need for emergent perfusion scan at a comprehensive center so for now we will admit her treat her low potassium and perform further stroke evaluation. Lab Data Attestation: I reviewed the patient's lab results. Labs: Laboratory Results - last 24 hr 07/21/24 22:10 WBC 4.9 RBC 3.71 L Hgb 12.0 Hct 36.0 L MCV 97.0 MCH 32.3 H MCHC 33.3 RDW Std Deviation 44.5 H RDW Coeff of Lindsey 12.6 Plt Count 222 MPV 9.4 Immature Gran % (Auto) 0.200 Neut % (Auto) 52.8 Lymph % (Auto) 29.4 Stone % (Auto) 14.6 H Eos % (Auto) 2.2 Baso % (Auto) 0.8 Absolute Neuts (auto) 2.6 Absolute Lymphs (auto) 1.45 Nucleated RBC % 0 PT 14.9 INR 1.2 APTT 29.3 Sodium 142 Potassium 2.8 L Chloride 106 Carbon Dioxide 29.0 Anion Gap 7 BUN 7 Creatinine 0.98 Estim Creat Clear Calc 53.52 Est GFR (MDRD) Af Amer 72 Est GFR (MDRD) Non-Af 60 BUN/Creatinine Ratio 7.1 L Glucose 121 H Calcium 8.8 Troponin I High Sens 43 Radiography Diagnostic Testing: Clinical Impression(s) from Imaging Studies Head/Neck CTA 07/21/24 21:56 IMPRESSION: Scattered carotid atherosclerosis without cervical or proximal intracranial vascular occlusion or focal flow-limiting stenosis N.B. : The above Results were Read Back by Armand Middleton MD to Dima Myers MD, and understanding confirmed on 07/21/2024 22:46:26 (ET). Electronically Signed: Armand Middleton MD at 22:48 EDT , ADDENDUM: 07/21/24 2255 IMPRESSION: Scattered carotid atherosclerosis without cervical or proximal intracranial vascular occlusion or focal flow-limiting stenosis N.B. : The above Results were Read Back by Armand Middleton MD to Dima Myers MD, and understanding confirmed on 07/21/2024 22:46:26 (ET). Electronically Signed: Armand Middleton MD at 22:48 EDT Reading Location ID and State: [facility] / [place] Tel , Service support , 1 view chest x-ray my interpretation shows clear lungs, cardiomegaly, and a hiatal hernia. Rhythm Strip Rhythm Strip: sinus jerry Rate: 42 Ectopy: None EKG Initial EKG: Attestation: I personally reviewed and interpreted this EKG as follows: Interpretation: No Acute Injury Pattern and Sinus Bradycardia Management Discussion w/another healthcare provider: Hospitalist, Orchestrator and Radiologist Stroke Documentation Questions Stroke Team Activated: Yes Was Patient considered for Endovascular Intervention?: No-CTA negative, determined not to be an endovascular candidate IV Thrombolytic Administered: No (due to timing) Critical Care Time Critical Care Time: Yes Critical care time (excluding procedures): 30-74 minutes (36 min), Including time spent:, Discussing w/Patient &/or Family/Child Health Associate, Discussing w/Consultants, Arranging Admission or Transfer and Performing Direct Patient Care at Bedside Discharge Plan Triage Chief Complaint: Stroke Alert ED Provider: Dima Myers Dx/Rx/DC Orders Clinical Impression: Ischemic stroke, Hypokalemia Prescriptions: No Action aspirin 81 mg tablet,chewable 81 mg PO DAILY lamotrigine 200 mg tablet 200 mg PO BID cyclobenzaprine 10 mg tablet 10 mg PO Q8H ammonium lactate 12 % cream 1 applic topical PRN calcium polycarbophil [Fiber Laxative (ca polycarbo)] 625 mg tablet 625 mg PO DAILY nystatin 100,000 unit/gram powder 1 applic topical DAILY PRN (Reason: SKIN) losartan 25 mg tablet 25 mg PO BID rabeprazole 20 mg tablet,delayed release (DR/EC) 20 mg PO BID Qty: 60 12RF triamcinolone acetonide 0.1 % cream 1 applic topical DAILY PRN (Reason: PER DR) cholecalciferol (vitamin D3) 50 mcg (2,000 unit) capsule 50 mcg PO DAILY ibandronate 150 mg tablet 150 mg PO QMONTH Rx Instructions: every month rosuvastatin 5 mg tablet 5 mg PO QHS gabapentin 600 mg tablet 400 mg PO TID budesonide 0.25 mg/2 mL suspension for nebulization 0.25 mg inhalation DAILY formoterol fumarate 20 mcg/2 mL solution for nebulization 2 ml inhalation BID Zyrtec 10 mg capsule 10 mg PO DAILY PRN (Reason: allergy symptoms) hydrocodone-acetaminophen 5-325 mg tablet 1 tab PO Q8H Artificial Tears (cmc) 1 % drops 1 drp ophthalmic (eye) BID hydroxyzine pamoate 25 mg capsule 25 mg PO BID Qty: 60 2RF fluticasone propionate 1 SPRAY spray,suspension 2 spray NASAL DAILY multivitamin 1 EACH tablet 1 ea PO DAILY polyethylene glycol 3350 17 GM packet 17 g PO DAILY albuterol sulfate 1 INHALER inhaler 2 puff inhalation Q6H PRN PRN (Reason: Sob &/Or Wheezing) diclofenac sodium 1 APPLIC gel 1 applic topical Q6H PRN PRN (Reason: Pain) promethazine 25 MG tablet 25 mg PO Q6H PRN PRN (Reason: Nausea) cyanocobalamin (vitamin B-12) 1,000 mcg/mL solution 1,000 mcg IM Q2W acetaminophen [Acetaminophen Extra Strength] 500 mg Tablet 1,000 mg PO BID ferrous sulfate 325 mg (65 mg iron) tablet 325 mg PO DAILY meclizine 25 mg capsule 12.5 mg PO BID clopidogrel [Plavix] 75 mg Tablet 75 mg PO DAILY Calcium 500 with Vitamin D2 500 mg(1,250mg) -200 unit Tablet 1 tab PO BID aluminum-magnesium hydroxide 200-200 mg/5 mL suspension 15 ml PO Q4H PRN (Reason: dyspepsia) amlodipine 2.5 mg tablet 2.5 mg PO DAILY hydrocortisone 2.5 % cream 1 applic topical TID PRN (Reason: skin irritation) lamotrigine 100 mg tablet 300 mg PO QHS Rx Instructions: take with 200mg tab levothyroxine 75 mcg tablet 75 mcg PO DAILY magnesium oxide 400 mg magnesium capsule 400 mg PO DAILY sucralfate [Carafate] 1 gram tablet 1 g PO BID Qty: 60 0RF Primary Care Provider: Alex Self Referrals: Alex Self MD [Primary Care Provider] - Print Language: Latvian Disposition Disposition: Acute Care Hospital [facility]
--- NOTE | 2024-07-21 22:28 | ED.RN ---
This RN performed an NIHSS on the patient and the patient scored a 2. When [facility] neurologist was on the phone, when asked to hold her arms up, the patient's left arm drooped. Likewise, when the neurologist asked the patient to lift her left leg up, the patient lifted her leg quickly and dropped it immediately. The patient told this RN that she is currently seeing a neurologist for her recurrent migraines and possible Tourette. Patient also explained that she tore her left rotator cuff, which makes it difficult to perform movements. notified.
[2024-07-21 22:37] LABS: International Normalized Ratio 1.2; Partial Thromboplast Time 29.3 Seconds (24.1-36.2); Prothrombin Time (Protime)PT. 14.9 SECONDS (11.7-14.9)
[2024-07-21 22:40] LABS: Absolute Lymphocyte Count 1.45 X10^3/uL (0.83-4.51); Absolute Neutrophil Count 2.6 X10^3/uL (2.0-7.7); Basophil# 0.04 X10^3/uL; Basophil% 0.8 % (0-1); Eosinophil# 0.11 X10^3/uL; Eosinophils% 2.2 % (0-5); Lymphocyte # 1.45 X10^3/ul (0.83-4.51); Lymphocyte % 29.4 % (19-41); Mean Corp Hgb Conc 33.3 g/dL (32-36); Mean Corpuscular Hgb 32.3 pg (27.0-32.0); Mean Platelet Vol. 9.4 fl (6.2-12.0); Monocyte# 0.72 X10^3/uL; Monocyte% 14.6 % (0-10); NRBC Flagged by Analyzer 0 % (0-5); Neutrophil # 2.61 X10^3/uL (2.7-7.7); Neutrophil % 52.8 % (47-70); Platelet Count 222 K/mm3 (150-450); RBC Distribution Width CV 12.6 % (11.6-14.6); RBC Distribution Width SD 44.5 fl (35.1-43.9); Red Blood Count 3.71 M/mm3 (4.2-5.4); White Blood Count 4.9 K/mm3 (4.4-11.0)
--- NOTE | 2024-07-21 22:40 | RAD_ITS ---
INDICATION: Neuro deficit, acute, stroke suspected EXAMINATION/TECHNIQUE: X-RAY - XR Chest 1 View COMPARISON: None. FINDINGS: LINES/DEVICES: None. LUNGS: No consolidation, edema or effusion. No pneumothorax. MEDIASTINUM AND CARDIOVASCULAR STRUCTURES: Cardiomegaly. Mild aortic atherosclerosis. BONES AND SOFT TISSUES: Right upper quadrant surgical clips are present. . RAD/Chest 1 View IMPRESSION: No radiographic evidence of acute cardiopulmonary disease. Cardiomegaly without florid edema. Electronically Signed: Armand Middleton MD at 23:21 EDT ,
[2024-07-21 22:47] LABS: Anion Gap 7 (5-15); BUN 7 mg/dL (7-18); BUN/Creat Ratio 7.1 RATIO (10-20); Calcium,Total 8.8 mg/dL (8.5-10.1); Chloride 106 mmol/L (98-107); Creatinine, Serum 0.98 mg/dL (0.55-1.02); EST Glomerular Filtration Rate 60 mL/min (>60); Est Glom Filt Rate - Afr Amer 72 mL/min (>60); Estimated Creatinine Clearance 53.52 ml/min; Glucose 121 mg/dL (74-106); Potassium 2.8 mmol/L (3.5-5.1); Sodium Level 142 mmol/L (136-145); Troponin-I HS 43 pg/mL (3.0-54.0)
--- NOTE | 2024-07-21 23:03 | PCM.HP.STD ---
HPI - General General Date of Admission: 07/21/24 Date of Service: 07/21/24 Chief Complaint: Left sided weakness, L sided facial droop. HPI Narrative The patient is a 69 y/o F w/ PMHx: Chronic migraines, CKD stage II per GFR trending, Carotid stenosis (approximate 80% left carotid stenosis anxiety and Depression/Bipolar disorder, Hx of BZD dependence, PVD, GERD, HTN, HLD, Asthma, Chronic migraines, Kyphosis/Scoliosis, Frequent Falls, Hypothyroidism, Cerebral Palsy who presents to the [facility] ED on 07/21/24 with history of onset at facility left-sided weakness as well as left-sided facial droop with last known normal at approximately 1600 reported per EMS with visualized new neurological deficits potentially around 2200 with a previous remote stroke but unclear pre-existing deficits with noted difficulty lifting her left arm which she reports secondary to pain not necessarily a neurological deficit. In the ED her initial NIH stroke scale per physician 2 with 1 for facial palsy and 1 for left upper extremity motor. Workup in the ED included T97.5, heart rate 43, BP 126/70, respiratory rate 16, 93% on room air with most recent repeat vitals heart rate 45, BP 117/82, respiratory rate 18, 99% on room air, CBC with WBC 4.9, hemoglobin 12, MCV 97, platelet 222 without marked shift, unremarkable coags, BMP with potassium 2.8, glucose 121, troponin 43, CTA of the head neck with scattered carotid atherosclerosis without any cervical proximal intracranial vascular occlusion or flow-limiting stenosis, CT of the head with no acute intracranial findings, chest x-ray with no acute cardiopulmonary findings, EKG with SB with no acute evidence of ischemia. In the ED patient administered no medications. Telestroke evaluation performed. [facility] Medical History (Updated 07/21/24 @ 23:[address] Dima Myers MD) Anxiety and depression CKD (chronic kidney disease), stage II Lives in assisted living facility Scoliosis Left rotator cuff tear Bipolar 1 disorder, depressed Primary osteoarthritis, left shoulder Left rotator cuff tear Peripheral vascular disease Kyphosis GERD (gastroesophageal reflux disease) Migraine Asthma Irritable bowel Hypercholesteremia Anemia Hyperlipidemia Hypertension Bipolar 1 disorder Fibromyalgia Hypothyroid Cerebral palsy Home Medications ?Medication ?Instructions ?Recorded ?Last Taken ?Type fluticasone propionate 50 2 spray NASAL DAILY congestion 01/03/16 03/24/21 History mcg/actuation nasal spray,suspension aspirin 81 mg chewable tablet 81 mg PO DAILY heart health 12/16/17 03/24/21 History multivitamin 1 ea PO DAILY supplement 12/02/18 03/24/21 History polyethylene glycol 3350 17 gram 17 g PO DAILY 06/22/19 03/22/21 History oral powder packet albuterol sulfate 90 mcg/actuation 2 puff inhalation Q6H PRN PRN Sob 04/16/20 11/05/20 History aerosol inhaler &/Or Wheezing diclofenac sodium 1 % topical gel 1 applic topical Q6H PRN PRN Pain 04/16/20 03/24/21 History promethazine 25 mg tablet 25 mg PO Q6H PRN PRN Nausea 01/07/21 03/23/21 History acetaminophen 500 mg tablet 1,000 mg PO BID Pain 09/18/21 03/30/24 History (Acetaminophen Extra Strength) lamotrigine 200 mg tablet 200 mg PO BID 01/14/22 Unknown History clopidogrel 75 mg tablet (Plavix) 75 mg PO DAILY 02/15/22 03/27/24 History calcium carb-ergocalciferol (vit 1 tab PO BID 04/16/22 Unknown History D2) 500 mg (1,250 mg)-200 unit tablet ammonium lactate 12 % topical cream 1 applic topical PRN 06/17/22 Unknown History calcium polycarbophil 625 mg 625 mg PO 4X/DAY 06/17/22 Unknown History tablet (Fiber Laxative (calcium polycarbophil)) nystatin 100,000 unit/gram topical 1 applic topical DAILY PRN SKIN 06/17/22 Unknown History powder ferrous sulfate 325 mg (65 mg 325 mg PO DAILY 09/07/22 Unknown History iron) tablet losartan 25 mg tablet 25 mg PO BID 09/07/22 03/30/24 History rabeprazole 20 mg tablet,delayed 20 mg PO BID #60 tabs 11/24/22 03/30/24 Rx release cholecalciferol (vitamin D3) 50 50 mcg PO DAILY 12/03/22 Unknown History mcg (2,000 unit) capsule triamcinolone acetonide 0.1 % 1 applic topical DAILY PRN PER 12/03/22 Unknown History topical cream ibandronate 150 mg tablet 150 mg PO QMONTH 04/29/23 Unknown History cyanocobalamin (vitamin B-12) 1,000 mcg IM Q2W supplement 05/31/23 Unknown History 1,000 mcg/mL injection solution gabapentin 600 mg tablet 400 mg PO TID 05/31/23 03/30/24 History rosuvastatin 5 mg tablet 5 mg PO QHS 05/31/23 Unknown History cetirizine 10 mg capsule (Zyrtec) 10 mg PO DAILY PRN allergy symptoms 06/16/23 Unknown History formoterol fumarate 20 mcg/2 mL 2 ml inhalation BID 06/16/23 03/30/24 History solution for nebulization hydrocodone-acetaminophen 5-325mg 1 tab PO Q8H pain 12/23/23 03/30/24 History 5mg-325mg aluminum-magnesium hydroxide 200 15 ml PO Q4H PRN dyspepsia 01/24/24 Unknown History mg-200 mg/5 mL oral suspension hydrocortisone 2.5 % topical cream 1 applic topical TID PRN skin 01/24/24 Unknown History irritation lamotrigine 100 mg tablet 100 mg PO QHS 01/24/24 03/30/24 History levothyroxine 75 mcg tablet 75 mcg PO DAILY 01/24/24 Unknown History hydroxyzine pamoate 25 mg capsule 25 mg PO BID anxiety #60 caps 03/14/24 03/30/24 Rx carboxymethylcellulose sodium 1 % 1 drp ophthalmic (eye) BID 03/17/24 Unknown History eye drops (Artificial Tears (carboxymethylcellulose)) magnesium oxide 400 mg PO DAILY 03/21/24 03/29/24 History budesonide 0.25 mg/2 mL suspension 500 mg inhalation DAILY 04/20/24 Unknown History for nebulization sucralfate 1 gram tablet (Carafate) 1 g PO BID #60 tabs 05/16/24 Unknown Rx albuterol sulfate 2.5 mg/3 mL 2.5 mg inhalation BID 07/21/24 Unknown History (0.083 %) solution for nebulization atogepant 30 mg tablet (Qulipta) 30 mg PO DAILY 07/21/24 Unknown History lactase 3,000 unit tablet (Dairy 15,000 unit PO TIDCM 07/21/24 Unknown History Relief) meclizine 12.5 mg tablet 12.5 mg PO BID 07/21/24 Unknown History tizanidine 2 mg tablet 6 mg PO QHS 07/21/24 Unknown History tizanidine 4 mg tablet 4 mg PO DAILY 07/21/24 Unknown History valbenazine 40 mg capsule 40 mg PO DAILY 07/21/24 Unknown History (Ingrezza) Allergy/AdvReac Type Severity Reaction Status Date / Time lithium Allergy Mild Vomiting Verified 07/21/24 22:12 propantheline Allergy Unknown unknown Verified 07/21/24 22:12 ziprasidone (From Geodon) Allergy Unknown unknown Verified 07/21/24 22:12 aspartame Allergy Itching Verified 07/21/24 22:12 carrot Allergy Food Verified 07/21/24 22:12 Allergy ciclesonide (From [place]) Allergy Shortness Verified 07/21/24 22:12 of breath diphenhydramine (From Allergy Other Verified 07/21/24 22:12 Benadryl) diphenhydramine HCl (From Allergy Rash Verified 07/21/24 22:12 Benadryl) imipramine Allergy Other Verified 07/21/24 22:12 levofloxacin (From Levaquin) Allergy Itching Verified 07/21/24 22:12 onabotulinumtoxinA (From Allergy Itching Verified 07/21/24 22:12 Botox) Penicillins Allergy Rash Verified 07/21/24 22:12 Seasonal Allergies: Uncoded Allergy NEEDS Verified 07/21/24 22:12 (environmental) FOLLOW-UP Sulfa (Sulfonamide Allergy NEEDS Verified 07/21/24 22:12 Antibiotics) FOLLOW-UP sulfamethoxazole (From Allergy NEEDS Verified 07/21/24 22:12 Bactrim) FOLLOW-UP topiramate (From Topamax) Allergy Other Verified 07/21/24 22:12 trimethoprim (From Bactrim) Allergy NEEDS Verified 07/21/24 22:12 FOLLOW-UP baclofen AdvReac Severe vomitting Verified 07/21/24 22:12 erythromycin base AdvReac Severe chest pain Verified 07/21/24 22:12 fentanyl AdvReac Severe Vomiting Verified 07/21/24 22:12 lubiprostone (From Amitiza) AdvReac Severe Vomiting Verified 07/21/24 22:12 ondansetron (From Zofran) AdvReac Severe Vomiting Verified 07/21/24 22:12 oxycodone AdvReac Severe vomitting Verified 07/21/24 22:12 oxymorphone AdvReac Severe ABD pain Verified 07/21/24 22:12 and vomiting pregabalin (From Lyrica) AdvReac Severe eyes would Verified 07/21/24 22:12 stay closed codeine AdvReac nausea Verified 07/21/24 22:12 lurasidone AdvReac Pain in Verified 07/21/24 22:12 joints sertraline (From Zoloft) AdvReac serotoin Verified 07/21/24 22:12 syndrome Family History Sister CVA (cerebral vascular accident) Afib Heart disease Liver disease Brother Colon cancer Father Emphysema lung Surgical History Hx of cholecystectomy History of appendectomy History of carpal tunnel release History of total right knee replacement History of total left knee replacement Social History adopted: No housing: assisted living facility current occupational status: disabled pets and animals: No Smoking Status: Never smoker alcohol intake: never substance use type: does not use ROS ROS Narrative Admission Review of Systems: CONSTITUTIONAL: No weight loss, fever, chills, + weakness or fatigue. HEENT: + Left-sided facial droop. Eyes: No visual loss, blurred vision, double vision or yellow sclerae. Ears, Nose, Throat: No hearing loss, sneezing, congestion, runny nose or sore throat. SKIN: No rash or itching, lesions, wounds. CARDIOVASCULAR: No chest pain, chest pressure or chest discomfort, palpitations, edema, orthopnea, syncopal events. RESPIRATORY: No shortness of breath, cough or sputum, wheezing, hemoptysis. GASTROINTESTINAL: + GERD/dyspepsia. No anorexia, nausea, vomiting or diarrhea, abdominal pain, melena, BRBPR. GENITOURINARY: No dysuria, frequency, urgency or retention. NEUROLOGICAL: + Left-sided facial droop, left upper extremity weakness complicated by underlying significant lumbar deformity/cerebral palsy with frequent falls, chronic appearance of tardive dyskinesia and some lower extremity movements possibly chorea. No headache, dizziness, syncope, change in bowel or bladder control, seizure. MUSCULOSKELETAL: + muscle, back pain, joint pain or stiffness. HEMATOLOGIC: No anemia. + Easy bleeding/bruising. LYMPHATICS: No enlarged nodes. No history of splenectomy. PSYCHIATRIC: + History of anxiety and depression/bipolar disorder. ENDOCRINOLOGIC: No reports of sweating, cold or heat intolerance. No polyuria or polydipsia. ALLERGIES: + History of asthma and allergic rhinitis. Vital Signs Vital Signs Vital Signs: 07/21/24 21:55 07/21/24 21:55 07/21/24 21:56 Temperature 97.5 F L Temperature Source Oral Pulse Rate 43 L 43 L Respiratory Rate 18 16 Blood Pressure Blood Pressure Mean Pulse Ox 98 93 93 Oxygen Delivery Method Room Air Room Air Room Air 07/21/24 21:56 07/21/24 22:25 07/21/24 22:30 Temperature Temperature Source Pulse Rate 44 L 45 L 45 L Respiratory Rate 16 18 18 Blood Pressure 126/70 H 96/60 117/82 H Blood Pressure Mean 88 72 93 Pulse Ox 90 100 99 Oxygen Delivery Method Room Air Room Air Room Air Weight Weight: 169 lb 12.095 oz Body Mass Index (BMI) 31.0 Physical Exam Narrative Physical Examination: General: Awake, alert, oriented x 3, remains mostly cooperative, seated upright in the ED bed, extremely talkative, believes she did have a stroke. Skin: Normal color, normal turgor, no icterus, no cyanosis except occasional stage ecchymoses, abrasions. HEENT: AT/NC, EOMI, PERRLA, mildly dry MM, no carotid bruits or JVD noted, mild left facial droop however patient is not very compliant when you ask her to follow exam requests. Lungs: Mildly diminished, greater bases, poor effort, no rales, ronchi or wheezing. Heart: Bradycardic with regular rhythm; no gallop, rub audible. Abdomen: Soft, obese, NTTP, ND, mildly hyperactive BS, no appreciated HSM. Extremities: No cyanosis, no clubbing, mild peripheral distal ankle not markedly pitting edema. Neurological: Patient awake, alert, oriented as noted, cognitive function suspect baseline intact; pupils equally reactive to light and accommodation, cranial nerves grossly appear normal aside mild left facial droop, moving all 4 extremities although a lot of difficulty performing finger-nose and [id number] but it appears more primarily secondary to a component of ataxia which we suspect is chronic and patient of note is on a medication for chorea but she is not certain if she has been diagnosed with anything specifically as it could also be for tardive dyskinesia, very mild left-sided weakness but she notes more secondary to pain and grunts when you attempted to use it and hold it, when she is distracted it seems to improve, strength moderately globally decreased secondary to underlying comorbidities, sensation hypersensitive but she notes this is chronic, equivocal Babinski. Psychiatric: Affect appears extremely talkative, normal, no acute evidence of depressive or anxiety feelings. Results Lab / Micro Data 07/21/24 22:10 07/21/24 22:10 Labs: Laboratory Results - last 24 hr 07/21/24 22:10: WBC 4.9, RBC 3.71 L, Hgb 12.0, Hct 36.0 L, MCV 97.0, MCH 32.3 H, MCHC 33.3, RDW Std Deviation 44.5 H, RDW Coeff of Lindsey 12.6, Plt Count 222, MPV 9.4, Immature Gran % (Auto) 0.200, Neut % (Auto) 52.8, Lymph % (Auto) 29.4, [place] % (Auto) 14.6 H, Eos % (Auto) 2.2, Baso % (Auto) 0.8, Absolute Neuts (auto) 2.6, Absolute Lymphs (auto) 1.45, Nucleated RBC % 0, PT 14.9, INR 1.2, APTT 29.3, Sodium 142, Potassium 2.8 L, Chloride 106, Carbon Dioxide 29.0, Anion Gap 7, BUN 7, Creatinine 0.98, Estim Creat Clear Calc 53.52, Est GFR (MDRD) Af Amer 72, Est GFR (MDRD) Non-Af 60, BUN/Creatinine Ratio 7.1 L, Glucose 121 H, Calcium 8.8, Troponin I High Sens 43 Imaging Radiology Impression Head/Neck CTA 07/21/24 21:56 IMPRESSION: Scattered carotid atherosclerosis without cervical or proximal intracranial vascular occlusion or focal flow-limiting stenosis N.B. : The above Results were Read Back by Armand Middleton MD to Dima Myers MD, and understanding confirmed on 07/21/2024 22:46:26 (ET). Electronically Signed: Armand Middleton MD at 22:48 EDT , ADDENDUM: 07/21/24 2255 IMPRESSION: Scattered carotid atherosclerosis without cervical or proximal intracranial vascular occlusion or focal flow-limiting stenosis N.B. : The above Results were Read Back by Armand Middleton MD to Dima Myers MD, and understanding confirmed on 07/21/2024 22:46:26 (ET). Electronically Signed: Armand Middleton MD at 22:48 EDT , Assessment & Plan Assessment/Plan (1) CVA (cerebral vascular accident): PLAN: Plan The patient is a 69 y/o F w/ PMHx: Chronic migraines, CKD stage II per GFR trending, Carotid stenosis (approximate 80% left carotid stenosis anxiety and Depression/Bipolar disorder, Hx of BZD dependence, PVD, GERD, HTN, HLD, Asthma, Chronic migraines, Kyphosis/Scoliosis, Frequent Falls, Hypothyroidism, Cerebral Palsy who presents to the [facility] ED on 07/21/24 with history of onset at facility left-sided weakness as well as left-sided facial droop with last known normal at approximately 1600 reported per EMS with visualized new neurological deficits potentially around 2200 with a previous remote stroke but unclear pre-existing deficits with noted difficulty lifting her left arm which she reports secondary to pain not necessarily a neurological deficit. #1. Left upper extremity weakness, left-sided facial droop concerning for acute CVA with previous history of stroke, unclear prior deficits: Will admit to PCU, to be cautious given patient pain compliant and high fall risk/risk of frequent falls will obtain plain film of the LUE/shoulder, will obtain MRI Brain, noted 02/16/2022 echocardiogram with normal LV systolic function, EF 65%, mildly enlarged LA, trivial MVI, trivial TVI, trivial PVI, RVSP 27 mmHg with evidence of diastolic dysfunction with bubble contrast study negative for [id number] interatrial shunt but given #2 have requested repeat ECHO, PT/OT/Speech/Nutrition evaluation per protocol. Will allow permissive HTN, maintain on asa/Plavix, statin w/ AM FLP, fall precautions. Mag, TSH, HgbA1c requested. Maintain on fall and aspiration precautions. Will continue ED initiated neurology consultation. #2. Bradycardia, asymptomatic: Patient with bradycardia in the ED, not on any rate or rhythm agents, will maintain on telemetry monitoring, will cycle cardiac enzymes, magnesium, TSH, current medication list with no overt medication reason, ECHO requested, may consider Cardiology involvement if ongoing with concerns arising/symptomatic. #3. Hypokalemia: Admission K+ 2.8, magnesium level requested, supplementation given, repeat level in AM. #4. Carotid disease: Patient with previous TIA/CVA 01/2022 with noted carotid disease at that time with approximate 80% left-sided carotid stenosis on CTA but follow-up carotid ultrasound with bilaterally less than 50% noted disease however no imaging since then. #5. Chronic asthma with allergic rhinitis: Will temporally hold home inhaler and in the interim transition to ATC budesonide therapy, PRN albuterol, HOB, IS parameters, continue fluticasone as well as Zyrtec, regimen. #6. Hypertension: Given presentation we will continue permissive hypertension per stroke protocol with as needed agents. #7. Hyperlipidemia: Continue home statin regimen. AM FLP. #8. Chronic Kidney Disease Stage II per GFR trending: Admission BUN/Cr 7/0.98, baseline renal function primarily 0.8-1.0, repeat BMP in AM. #9. Cerebral palsy with significant kyphosis/scoliosis with frequent falls, chronic neuropathy: Will cautiously continue patient home chronic gabapentin regimen, maintain on fall precautions, frequent positional changes, PT/OT/case management consulted for discharge planning. Will cautiously continue patient judicious tizanidine usage but hold for sedation. #10. Anxiety and depression/bipolar disorder/history of previous benzodiazepine dependence: Following with Dr. Judd, encourage continued close outpatient follow-up, we will continue patient home lamotrigine as well as hydroxyzine regimen, level requested. Will continue patient home Ingrezza regimen concurrently. #11. Hypothyroidism: We will continue patient home levothyroxine regimen, TSH requested. #12. GERD: We will continue patient on PPI and sucralfate regimen. #13. Chronic migraines: Given presentation with stroke rule out will temporarily hold patient home atogepant regimen, add back if MRI negative. #14. DVT prophylaxis: Lovenox. #14. CODE status: Patient RAMILA is her friend Patty and living will is currently in place. Discussed CODE status at length including difference between FULL code, DNR-CCA and DNR-CC status. Following discussions about the differences in these status, requested Full Code status. Advanced Care Planning Face to Face Time: 16 minutes. Charges/Coding Visit Charges Inpatient E&M: 07900 Init Hosp L3 Procedures Hospitalists Procedures: 94686 Advncd Care Plan 30 Min
[2024-07-21] MEDS: Potassium Chloride 10mEq/100mL 10 MEQ/100 ML IV.SOLN. 100 MEQ IV BOLUS (23:34)
[2024-07-21 23:39] LABS: Magnesium 1.7 mg/dL (1.6-2.6); Phosphorus 3.8 mg/dL (2.5-4.9)
[2024-07-22] VITALS (8 sets, daily range): BP systolic 144–184; BP diastolic 74–104; PULSE 68–88; RESP 16–30; TEMP 35.7–36.8; O2SAT 94–99; BMI 32.4
--- NOTE | 2024-07-22 00:13 | MRI_ITS ---
EXAM: MR HEAD WITHOUT INTRAVENOUS CONTRAST CLINICAL INDICATION: CVA TECHNIQUE: Multiplanar and multisequence MR images of the brain were obtained without intravenous contrast. COMPARISON: CT head without contrast and CTA head and neck with contrast 07/21/2024. FINDINGS: BRAIN AND EXTRA-AXIAL SPACES: No diffusion restriction to suspect acute or subacute ischemic infarct. No remote cortical-based ischemic infarct. T2 FLAIR hyperintensity foci in the white matter both cerebral hemispheres and across the central pontine tegmentum are chronic white matter ischemic changes. No midline shift and no mass effects. Normal ventricles and cisterns. No intra- or extra-axial hemorrhage. Posterior fossa structures are unremarkable. No hydrocephalus. SELLA: Unremarkable. Normal sella turcica, pituitary gland, infundibular stalk, optic chiasm and hypothalamus. AUDITORY SYSTEM: Unremarkable. The internal auditory canals are patent. BONES/JOINTS: Unremarkable. No discrete lytic or blastic abnormalities. SINUSES: Unremarkable as visualized. Clear. MASTOID AIR CELLS: Unremarkable as visualized. Clear. ORBITS: Unremarkable as visualized. Both globes, extraocular muscles, optic nerves and retrobulbar fat appear unremarkable. VASCULATURE: Unremarkable as visualized. Normal flow voids in the major intracranial circulation. MRI/Brain without Contrast IMPRESSION: 1. No MRI evidence of acute or subacute ischemic infarct or remote cortical-based ischemic infarct. 2. Chronic white matter ischemic changes in both cerebral hemispheres and across the central pontine tegmentum. Electronically Signed: Hardeep Martin MD at 14:15 EDT ,
--- NOTE | 2024-07-22 00:13 | ECHOD_ITS ---
Reason For Study: Arrhythmia Left Ventricle Normal LV size. The estimated ejection fraction is 60 %. Unable to assess diastolic dysfunction. No regional wall motion abnormalities noted. Right Ventricle Normal RV size. Normal systolic function. Atria The left atrium is mildly enlarged. Normal right atrium. No doppler evidence for ASD. Mitral Valve There is moderate mitral annular calcification. There is no mitral valve stenosis. No mitral valve insufficiency. Tricuspid Valve There is no tricuspid stenosis. Unable to estimate RV systolic pressure due to inadequate jet, pulmonary artery pressure probably normal. Aortic Valve Trisinus/trileaflet aortic valve. Moderate diffuse aortic valve thickening. Mild to moderate aortic stenosis. No aortic valve insufficiency. Pulmonic Valve There is no pulmonic valvular stenosis. No pulmonic valve insufficiency. Great Vessels Normal aortic root. Pericardium/Pleural No pericardial effusion. MMode/2D Measurements & Calculations LVIDd: 5.0 cm IVSd: 1.3 cm LVOT diam: 2.0 cm LVIDs: 2.9 cm LVPWd: 1.2 cm LVOT area: 3.1 cm2 RVDd: 3.6 cm FS: 42.9 % Ao root diam: 3.1 cm LAV(MOD-bp): 50.2 ml LVAd ap4: 23.0 cm2 LAV(MOD-bp) Indexed: 28.2 ml/m2 LVLd ap4: 7.1 cm LAV(MOD-sp2): 63.6 ml EDV(MOD-sp4): 61.4 ml LAV(MOD-sp4): 36.4 ml EDV(sp4-el): 63.3 ml LVAs ap4: 11.8 cm2 LVLs ap4: 5.3 cm ESV(MOD-sp4): 22.6 ml ESV(sp4-el): 22.3 ml EF(MOD-sp4): 63.3 % EF(sp4-el): 64.7 % SV(MOD-sp4): 38.9 ml SV(sp4-el): 41.0 ml LA A4 area: 15.2 cm2 LA dimension(2D): 4.3 cm RA A4 area: 10.2 cm2 TAPSE: 2.7 cm Time Measurements MV dec time: 0.26 sec Doppler Measurements & Calculations MV E max caden: 110.2 cm/sec Lat Peak E' Caden: 8.9 cm/sec Med Peak E' Caden: 6.7 cm/sec MV A max caden: 120.7 cm/sec E/E' lat: 12.4 E/E' med: 16.4 MV E/A: 0.91 MV V2 max: 121.5 cm/sec Ao V2 max: 284.4 cm/sec MV max P.9 mmHg MV dec slope: 426.5 cm/sec2 Ao max P.4 mmHg MV V2 mean: 77.1 cm/sec Ao V2 mean: 209.2 cm/sec MV mean P.6 mmHg Ao mean P.9 mmHg MV V2 VTI: 34.3 cm Ao V2 VTI: 57.6 cm AV (velocity ratio): 0.51 MVA(VTI): 2.6 cm2 CHEYANNE(I,D): 1.6 cm2 CHEYANNE(V,D): 1.3 cm2 LV V1 max: 124.8 cm/sec SV(LVOT): 90.9 ml PA V2 max: 125.2 cm/sec LV V1 max P.2 mmHg LV V1 mean P.3 mmHg LV V1 mean: 85.3 cm/sec LV V1 VTI: 29.6 cm ECHO/Echo Complete Interpretation Summary The estimated ejection fraction is 60 %. Unable to assess diastolic dysfunction. The left atrium is mildly enlarged. Mild to moderate aortic stenosis. Ordering Physician: Karie Jeffers Referring Physician: Alex Self Performed By: Martha West RDCS, RVT
[2024-07-22] MEDS: 0.9% Normal Saline (1000mL) 1,000 ML 100 ML IV (00:50)
[2024-07-22] MEDS: Potassium Chloride Oral Tablet 20 MEQ 40 MEQ PO ×2 (01:20→07:25)
[2024-07-22 01:26] LABS: Troponin-I HS 43 pg/mL (3.0-54.0)
[2024-07-22 04:04] LABS: Absolute Lymphocyte Count 1.12 X10^3/uL (0.83-4.51); Absolute Neutrophil Count 4.6 X10^3/uL (2.0-7.7); Basophil# 0.03 X10^3/uL; Basophil% 0.5 % (0-1); Eosinophil# 0.09 X10^3/uL; Eosinophils% 1.4 % (0-5); Hematocrit 37.3 % (37-47); Hemoglobin 12.5 g/dL (12.0-15.0); Lymphocyte # 1.12 X10^3/ul (0.83-4.51); Mean Corp Hgb Conc 33.5 g/dL (32-36); Mean Corpuscular Hgb 32.8 pg (27.0-32.0); Mean Corpuscular Volume 97.9 fL (81-99); Monocyte# 0.75 X10^3/uL; Monocyte% 11.4 % (0-10); NRBC Flagged by Analyzer 0 % (0-5); Neutrophil # 4.59 X10^3/uL (2.7-7.7); Neutrophil % 69.5 % (47-70); Platelet Count 197 K/mm3 (150-450); RBC Distribution Width CV 12.7 % (11.6-14.6); RBC Distribution Width SD 45.3 fl (35.1-43.9); Red Blood Count 3.81 M/mm3 (4.2-5.4); White Blood Count 6.6 K/mm3 (4.4-11.0)
[2024-07-22 04:32] LABS: Troponin-I HS 33 pg/mL (3.0-54.0)
[2024-07-22 05:59] LABS: ALB/GLOB Ratio 1.3 RATIO (0.9-2.4); AST(SGOT) 18 U/L (15-37); Alanine Aminotransfer ALT/SGPT 19 U/L (13-56); Albumin, Serum 2.8 g/dL (3.2-5.0); Alkaline Phosphatase 90 U/L (45-117); Anion Gap 5 (5-15); BUN 5 mg/dL (7-18); BUN/Creat Ratio 6.1 RATIO (10-20); Calcium,Total 8.7 mg/dL (8.5-10.1); Chloride 108 mmol/L (98-107); Cholesterol 128 mg/dL (200); Creatinine, Serum 0.82 mg/dL (0.55-1.02); EST Glomerular Filtration Rate 74 mL/min (>60); Est Glom Filt Rate - Afr Amer 90 mL/min (>60); Estimated Creatinine Clearance 65.39 ml/min; Globulin 2.2 g/dL (2.2-4.2); Glucose 101 mg/dL (74-106); High Density Lipoprotein 74 mg/dL; Sodium Level 142 mmol/L (136-145); Thyroid Stim Hormone (TSH) 0.937 uIU/mL (0.358-3.740); Triglycerides 75 mg/dL; Very Low Density Lipoprotein 15 mg/dL (5-40)
[2024-07-22] MEDS: Levothyroxine 75 MCG Tablet PO (06:13)
[2024-07-22] MEDS: Sucralfate 1 GM Tablet PO (06:13)
[2024-07-22] MEDS: Gabapentin 400 MG Capsule PO ×3 (06:16→22:34)
[2024-07-22] MEDS: Budesonide Respules 0.5 MG/2 ML AMPUL.NEB. INHALATION ×2 (06:55→19:08)
[2024-07-22 09:34] LABS: Hemoglobin A1c 4.6 % (3.8-5.6)
--- NOTE | 2024-07-22 10:03 | NEURO.CONS ---
Assessment and Plan: Neuro Assessment/Plan STEVE FAGAN, is a 69 F w/ CKD, left rotator cuff injury, PAD, mood disorders, migraine, HTN, HLD, and stroke?, chronic left facial asymmetry, resides at assisted living and polypharmacy use who presents for confusion and left arm and face weakness. She states she woke up yesterday at 8pm and her right shoulder was hurting and has chronic left shoulder pain and took her meds and afterwards felt out of it and that why EMS was called. EMS noted some facial asymmtry and left sided weakeness and stroke alerted the patient. CT/CTA neg. Out of window for lytics. NO evt as no lvo. Stroke neurologist was consulted for this episode. Today only noted left facial asymmtery which she states is chronic. No weakness but think what was noted yesterday probably her chronic weakness. Her movement condition she has a neurologist. I think this confusion episode is likely polypharmacy as she is on alot of pain meds, nerve pain meds and muscle relaxants. LDL 39 and a1c4.6. Diagnosis: - Polypharmacy - Chronic left facial asymmetry and chronic LUE weakness from rotator cuff tear Plan: - Cont home meds - MRI brain I personally attended this patient and spent a total time of 45 minutes evaluating this patient including clinical assessment, review of chart, medical history imaging, and determining appropriate treatment and workup. HPI Consult Data Date of Consult: 07/22/24 HPI Narrative HPI Narrative: STEVE FAGAN, is a 69 F w/ CKD, left rotator cuff injury, PAD, mood disorders, migraine, HTN, HLD, and stroke?, chronic left facial asymmetry, resides at assisted living and polypharmacy use who presents for confusion and left arm and face weakness. She states she woke up yesterday at 8pm and her right shoulder was hurting and has chronic left shoulder pain and took her meds and afterwards felt out of it and that why EMS was called. EMS noted some facial asymmtry and left sided weakeness and stroke alerted the patient. CT/CTA neg. Out of window for lytics. NO evt as no lvo. Stroke neurologist was consulted for this episode. Today only noted left facial asymmtery which she states is chronic. No weakness but think what was noted yesterday probably her chronic weakness. Her movement condition she has a neurologist. I think this confusion episode is likely polypharmacy as she is on alot of pain meds, nerve pain meds and muscle relaxants. LDL 39 and a1c4.6. PFSH Medical History Anxiety and depression CKD (chronic kidney disease), stage II Lives in assisted living facility Scoliosis Left rotator cuff tear Bipolar 1 disorder, depressed Primary osteoarthritis, left shoulder Left rotator cuff tear Peripheral vascular disease Kyphosis GERD (gastroesophageal reflux disease) Migraine Asthma Irritable bowel Hypercholesteremia Anemia Hyperlipidemia Hypertension Bipolar 1 disorder Fibromyalgia Hypothyroid Cerebral palsy Home Medications ?Medication ?Instructions ?Recorded ?Last Taken ?Type fluticasone propionate 50 2 spray NASAL DAILY congestion 01/03/16 03/24/21 History mcg/actuation nasal spray,suspension aspirin 81 mg chewable tablet 81 mg PO DAILY heart health 12/16/17 03/24/21 History multivitamin 1 ea PO DAILY supplement 12/02/18 03/24/21 History polyethylene glycol 3350 17 gram 17 g PO DAILY 06/22/19 03/22/21 History oral powder packet albuterol sulfate 90 mcg/actuation 2 puff inhalation Q6H PRN PRN Sob 04/16/20 11/05/20 History aerosol inhaler &/Or Wheezing diclofenac sodium 1 % topical gel 1 applic topical Q6H PRN PRN Pain 04/16/20 03/24/21 History promethazine 25 mg tablet 25 mg PO Q6H PRN PRN Nausea 01/07/21 03/23/21 History acetaminophen 500 mg tablet 1,000 mg PO BID Pain 09/18/21 03/30/24 History (Acetaminophen Extra Strength) lamotrigine 200 mg tablet 200 mg PO BID 01/14/22 Unknown History clopidogrel 75 mg tablet (Plavix) 75 mg PO DAILY 02/15/22 03/27/24 History calcium carb-ergocalciferol (vit 1 tab PO BID 04/16/22 Unknown History D2) 500 mg (1,250 mg)-200 unit tablet ammonium lactate 12 % topical cream 1 applic topical PRN 06/17/22 Unknown History calcium polycarbophil 625 mg 625 mg PO 4X/DAY 06/17/22 Unknown History tablet (Fiber Laxative (calcium polycarbophil)) nystatin 100,000 unit/gram topical 1 applic topical DAILY PRN SKIN 06/17/22 Unknown History powder ferrous sulfate 325 mg (65 mg 325 mg PO DAILY 09/07/22 Unknown History iron) tablet losartan 25 mg tablet 25 mg PO BID 09/07/22 03/30/24 History rabeprazole 20 mg tablet,delayed 20 mg PO BID #60 tabs 11/24/22 03/30/24 Rx release cholecalciferol (vitamin D3) 50 50 mcg PO DAILY 12/03/22 Unknown History mcg (2,000 unit) capsule triamcinolone acetonide 0.1 % 1 applic topical DAILY PRN PER DR 12/03/22 Unknown History topical cream ibandronate 150 mg tablet 150 mg PO QMONTH 04/29/23 Unknown History cyanocobalamin (vitamin B-12) 1,000 mcg IM Q2W supplement 05/31/23 Unknown History 1,000 mcg/mL injection solution gabapentin 600 mg tablet 400 mg PO TID 05/31/23 03/30/24 History rosuvastatin 5 mg tablet 5 mg PO QHS 05/31/23 Unknown History cetirizine 10 mg capsule (Zyrtec) 10 mg PO DAILY PRN allergy symptoms 06/16/23 Unknown History formoterol fumarate 20 mcg/2 mL 2 ml inhalation BID 06/16/23 03/30/24 History solution for nebulization hydrocodone-acetaminophen 5-325mg 1 tab PO Q8H pain 12/23/23 03/30/24 History 5mg-325mg aluminum-magnesium hydroxide 200 15 ml PO Q4H PRN dyspepsia 01/24/24 Unknown History mg-200 mg/5 mL oral suspension hydrocortisone 2.5 % topical cream 1 applic topical TID PRN skin 01/24/24 Unknown History irritation lamotrigine 100 mg tablet 100 mg PO QHS 01/24/24 03/30/24 History levothyroxine 75 mcg tablet 75 mcg PO DAILY 01/24/24 Unknown History hydroxyzine pamoate 25 mg capsule 25 mg PO BID anxiety #60 caps 03/14/24 03/30/24 Rx carboxymethylcellulose sodium 1 % 1 drp ophthalmic (eye) BID 03/17/24 Unknown History eye drops (Artificial Tears (carboxymethylcellulose)) magnesium oxide 400 mg PO DAILY 03/21/24 03/29/24 History budesonide 0.25 mg/2 mL suspension 500 mg inhalation DAILY 04/20/24 Unknown History for nebulization sucralfate 1 gram tablet (Carafate) 1 g PO BID #60 tabs 05/16/24 Unknown Rx albuterol sulfate 2.5 mg/3 mL 2.5 mg inhalation BID 07/21/24 Unknown History (0.083 %) solution for nebulization atogepant 30 mg tablet (Qulipta) 30 mg PO DAILY 07/21/24 Unknown History lactase 3,000 unit tablet (Dairy 15,000 unit PO TIDCM 07/21/24 Unknown History Relief) meclizine 12.5 mg tablet 12.5 mg PO BID 07/21/24 Unknown History tizanidine 2 mg tablet 6 mg PO QHS 07/21/24 Unknown History tizanidine 4 mg tablet 4 mg PO DAILY 07/21/24 Unknown History valbenazine 40 mg capsule 40 mg PO DAILY 07/21/24 Unknown History (Ingrezza) Allergy/AdvReac Type Severity Reaction Status Date / Time lithium Allergy Mild Vomiting Verified 07/21/24 22:12 propantheline Allergy Unknown unknown Verified 07/21/24 22:12 ziprasidone (From Geodon) Allergy Unknown unknown Verified 07/21/24 22:12 aspartame Allergy Itching Verified 07/21/24 22:12 carrot Allergy Food Verified 07/21/24 22:12 Allergy ciclesonide (From [place]) Allergy Shortness Verified 07/21/24 22:12 of breath diphenhydramine (From Allergy Other Verified 07/21/24 22:12 Benadryl) diphenhydramine HCl (From Allergy Rash Verified 07/21/24 22:12 Benadryl) imipramine Allergy Other Verified 07/21/24 22:12 levofloxacin (From Levaquin) Allergy Itching Verified 07/21/24 22:12 onabotulinumtoxinA (From Allergy Itching Verified 07/21/24 22:12 Botox) Penicillins Allergy Rash Verified 07/21/24 22:12 Seasonal Allergies: Uncoded Allergy NEEDS Verified 07/21/24 22:12 (environmental) FOLLOW-UP Sulfa (Sulfonamide Allergy NEEDS Verified 07/21/24 22:12 Antibiotics) FOLLOW-UP sulfamethoxazole (From Allergy NEEDS Verified 07/21/24 22:12 Bactrim) FOLLOW-UP topiramate (From Topamax) Allergy Other Verified 07/21/24 22:12 trimethoprim (From Bactrim) Allergy NEEDS Verified 07/21/24 22:12 FOLLOW-UP baclofen AdvReac Severe vomitting Verified 07/21/24 22:12 erythromycin base AdvReac Severe chest pain Verified 07/21/24 22:12 fentanyl AdvReac Severe Vomiting Verified 07/21/24 22:12 lubiprostone (From Amitiza) AdvReac Severe Vomiting Verified 07/21/24 22:12 ondansetron (From Zofran) AdvReac Severe Vomiting Verified 07/21/24 22:12 oxycodone AdvReac Severe vomitting Verified 07/21/24 22:12 oxymorphone AdvReac Severe ABD pain Verified 07/21/24 22:12 and vomiting pregabalin (From Lyrica) AdvReac Severe eyes would Verified 07/21/24 22:12 stay closed codeine AdvReac nausea Verified 07/21/24 22:12 lurasidone AdvReac Pain in Verified 07/21/24 22:12 joints sertraline (From Zoloft) AdvReac serotoin Verified 07/21/24 22:12 syndrome Family History Sister CVA (cerebral vascular accident) Afib Heart disease Liver disease Brother Colon cancer Father Emphysema lung Surgical History Hx of cholecystectomy History of appendectomy History of carpal tunnel release History of total right knee replacement History of total left knee replacement Social History adopted: No housing: assisted living facility current occupational status: disabled pets and animals: No Smoking Status: Never smoker alcohol intake: never substance use type: does not use Vital Signs Vital Signs Vital Signs: 07/21/24 21:55 07/21/24 21:55 07/21/24 21:56 Temperature 97.5 F L Temperature Source Oral Pulse Rate 43 L 43 L Respiratory Rate 18 16 Respiratory Effort Respiratory Depth Respiratory Pattern Blood Pressure Blood Pressure Mean Blood Pressure Source Blood Pressure Position Blood Pressure Location Pulse Ox 98 93 93 Oxygen Delivery Method Room Air Room Air Room Air 07/21/24 21:56 07/21/24 22:25 07/21/24 22:30 Temperature Temperature Source Pulse Rate 44 L 45 L 45 L Respiratory Rate 16 18 18 Respiratory Effort Respiratory Depth Respiratory Pattern Blood Pressure 126/70 H 96/60 117/82 H Blood Pressure Mean 88 72 93 Blood Pressure Source Blood Pressure Position Blood Pressure Location Pulse Ox 90 100 99 Oxygen Delivery Method Room Air Room Air Room Air 07/21/24 22:54 07/21/24 23:00 07/21/24 23:00 Temperature Temperature Source Pulse Rate 43 L 47 L 49 L Respiratory Rate 18 18 18 Respiratory Effort Respiratory Depth Respiratory Pattern Blood Pressure 120/82 H 120/82 H 120/82 H Blood Pressure Mean 94 94 94 Blood Pressure Source Blood Pressure Position Blood Pressure Location Pulse Ox 98 94 98 Oxygen Delivery Method Room Air Room Air Room Air 07/21/24 23:07 07/21/24 23:08 07/21/24 23:50 Temperature 97.5 F L 97.8 F Temperature Source Oral Pulse Rate 47 L 48 L 46 L Respiratory Rate 18 18 16 Respiratory Effort Respiratory Depth Respiratory Pattern Blood Pressure 120/82 H 120/82 H 144/80 H Blood Pressure Mean 94 94 101 Blood Pressure Source Monitor Blood Pressure Position Semi-Fowlers Blood Pressure Location Left Arm Pulse Ox 98 97 100 Oxygen Delivery Method Room Air Room Air 07/22/24 01:00 07/22/24 03:10 07/22/24 03:50 Temperature 98.0 F Temperature Source Oral Pulse Rate 68 Respiratory Rate 18 Respiratory Effort Normal Non-Labored Respiratory Depth Normal Respiratory Pattern Normal Blood Pressure 144/97 H Blood Pressure Mean 112 Blood Pressure Source Monitor Blood Pressure Position Semi-Fowlers Blood Pressure Location Right Arm Pulse Ox 97 97 Oxygen Delivery Method Room Air Room Air Room Air 07/22/24 06:55 07/22/24 06:55 Temperature Temperature Source Pulse Rate 88 Respiratory Rate 20 H Respiratory Effort Respiratory Depth Respiratory Pattern Normal Blood Pressure Blood Pressure Mean Blood Pressure Source Blood Pressure Position Blood Pressure Location Pulse Ox 98 Oxygen Delivery Method Room Air Weight Weight: 80.4 kg Body Mass Index (BMI) 32.4 EEG Results Procedure Details EEG Procedure Details: STEVE FAGAN is a 69 year old F with a past medical history of , who presents for evaluation of Electroencephalogram on DATE at TIME NIHSS NIHSS Nursing Documentation NIHSS Nursing Documentation: NIHSS: Ischemic Stroke/TIA Start: 07/22/24 00:13 Text: For PCU Patients: NIH and Neuro Check every 4 Status: Active hours, PRN and with change in RN caregiver. Freq: [id number] Protocol: Activity Type Activity Date Activity User E-sign Co-sign Detail Recorded Client Recorded Date Recorded By Document 07/22/24 07:49 SHANTEL desk 07/22/24 07:49 SHANTEL 07/22/24 07:49 NIH Stroke Scale [NIHSS] A score of 0 is normal or asymptomatic . Total possible score is 42. Inpatient: RN or Physician to activate a stroke alert for onset of new stroke symptoms or with NIHSS increase >/= 3 points. Following change in neurological status, NIHSS will be performed per physician order or more frequently PRN. -1a. Level of Consciousness Alert; keenly responsive -1b. LOC Questions Answers BOTH questions correctly. -1c. LOC Commands Performs both tasks correctly . -2. Best Gaze Normal -3. Visual No visual loss -4. Facial Palsy Minor paralysis (flattened nasolabial fold , asymmetry on smiling) -5a. Left Arm No drift; arm holds 90 (or 45 ) degrees for full 10 seconds -5b. Right Arm No drift; arm holds 90 (or 45 ) degrees for full 10 seconds -6a. Left Leg No drift; leg holds 30-degree position for full 5 seconds -6b. Right Leg No drift; leg holds 30-degree position for full 5 seconds -7. Limb Ataxia Present in 2 limbs -8. Sensory Mild-to- moderate sensory loss; -9. Best Language No aphasia; normal -10. Dysarthria Mild-to- moderate dysarthria; -11. Extinction and Inattention No abnormality -Total 5 Query Text:A score of 0 is normal or asymptomatic. Total possible score is 42 . ED: Notify Physician for NIHSS increase by > / = 3 points. Inpatient: RN or Physician to activate a stroke alert for NIHSS increase of > / = 3 points. Coma Scale [Assess] -Eye Opening Spontaneous -Motor Obeys Commands -Verbal Oriented [Total] -Coma Scale Total 15 Physical Exam Narrative Physical Exam: - General: NAD, pleasant, cooperative, well nourished, well developed - Head/Eyes: Atraumatic, normocephalic, clear cornea, normal sclera/conjunctive - Neuro: ? Mental Status: AAOX4 & following simple commands. ? Speech: Clear and fluent with good repetition, comprehension, & naming. No aphasia or dysarthria ? CN II: Visual martinez are full to confrontation. PERRL. ? CN III, IV, : EOMI, no gaze preference, no nystagmus, no ptosis ? CN V: Facial sensation is intact to light touch throughout. ? CN VII: Face is symmetric with normal eye closure and smile. ? CN VII: Hearing is grossly normal to conversational speech. ? CN IX, X: Palate elevates symmetrically and no uvula deviation ? CN XI: Head turning, and shoulder shrug are intact. ? CN XII: Tongue is midline with normal movements and no atrophy. ? Motor: Able to sustain all limbs ? Sensation: Normal to light touch bilaterally. ? Coordination: Normal FTN & HTS. When asked to lift arm she just flaps them forward which doesnt look like a true orgnanic movement issue Lab / Micro Data 07/22/24 03:54 07/22/24 05:10 Labs: Laboratory Results - last 24 hr 07/21/24 22:10: WBC 4.9, RBC 3.71 L, Hgb 12.0, Hct 36.0 L, MCV 97.0, MCH 32.3 H, MCHC 33.3, RDW Std Deviation 44.5 H, RDW Coeff of Lindsey 12.6, Plt Count 222, MPV 9.4, Immature Gran % (Auto) 0.200, Neut % (Auto) 52.8, Lymph % (Auto) 29.4, [place] % (Auto) 14.6 H, Eos % (Auto) 2.2, Baso % (Auto) 0.8, Absolute Neuts (auto) 2.6, Absolute Lymphs (auto) 1.45, Nucleated RBC % 0, PT 14.9, INR 1.2, APTT 29.3, Sodium 142, Potassium 2.8 L, Chloride 106, Carbon Dioxide 29.0, Anion Gap 7, BUN 7, Creatinine 0.98, Estim Creat Clear Calc 53.52, Est GFR (MDRD) Af Amer 72, Est GFR (MDRD) Non-Af 60, BUN/Creatinine Ratio 7.1 L, Glucose 121 H, Calcium 8.8, Phosphorus 3.8, Magnesium 1.7, Troponin I High Sens 43 07/22/24 00:45: Troponin I High Sens 43 07/22/24 03:54: WBC 6.6, RBC 3.81 L, Hgb 12.5, Hct 37.3, MCV 97.9, MCH 32.8 H, MCHC 33.5, RDW Std Deviation 45.3 H, RDW Coeff of Lindsey 12.7, Plt Count 197, MPV 9.0, Immature Gran % (Auto) 0.200, Neut % (Auto) 69.5, Lymph % (Auto) 17.0 L, [place] % (Auto) 11.4 H, Eos % (Auto) 1.4, Baso % (Auto) 0.5, Absolute Neuts (auto) 4.6, Absolute Lymphs (auto) 1.12, Nucleated RBC % 0, Sodium Cancelled, Potassium Cancelled, Chloride Cancelled, Carbon Dioxide Cancelled, Anion Gap Cancelled, BUN Cancelled, Creatinine Cancelled, Estim Creat Clear Calc Cancelled, Est GFR (MDRD) Af Amer Cancelled, Est GFR (MDRD) Non-Af Cancelled, BUN/Creatinine Ratio Cancelled, Glucose Cancelled, Hemoglobin A1c 4.6, Calcium Cancelled, Total Bilirubin Cancelled, AST Cancelled, ALT Cancelled, Alkaline Phosphatase Cancelled, Troponin I High Sens 33, Total Protein Cancelled, Albumin Cancelled, Globulin Cancelled, Albumin/Globulin Ratio Cancelled, Triglycerides Cancelled, Cholesterol Cancelled, LDL Cholesterol Cancelled, VLDL Cholesterol Cancelled, HDL Cholesterol Cancelled, TSH Cancelled 07/22/24 05:10: Sodium 142, Potassium 3.0 L, Chloride 108 H, Carbon Dioxide 29.0, Anion Gap 5, BUN 5 L, Creatinine 0.82, Estim Creat Clear Calc 65.39, Est GFR (MDRD) Af Amer 90, Est GFR (MDRD) Non-Af 74, BUN/Creatinine Ratio 6.1 L, Glucose 101, Calcium 8.7, Total Bilirubin 0.40, AST 18, ALT 19, Alkaline Phosphatase 90, Total Protein 5.0 L, Albumin 2.8 L, Globulin 2.2, Albumin/Globulin Ratio 1.3, Triglycerides 75, Cholesterol 128, LDL Cholesterol 39, VLDL Cholesterol 15, HDL Cholesterol 74, TSH 0.937 Rhythm Strip Rhythm Strip: sinus jerry Rate: 42 Ectopy: None Imaging Radiology Impression Brain CT 07/21/24 21:55 IMPRESSION: No CT evidence of acute intracranial hemorrhage or injury. Moderate senescent changes with atherosclerosis. N.B. : The above Results were Read Back by Armand Middleton MD to Dima Myers MD, and understanding confirmed on 07/21/2024 22:15:10 (ET). Electronically Signed: rAmand Middleton MD at 22:15 EDT Reading Location ID and State: [facility] / [place] Tel , Service support , Head/Neck CTA 07/21/24 21:56 IMPRESSION: Scattered carotid atherosclerosis without cervical or proximal intracranial vascular occlusion or focal flow-limiting stenosis N.B. : The above Results were Read Back by Armand Middleton MD to Dima Myers MD, and understanding confirmed on 07/21/2024 22:46:26 (ET). Electronically Signed: Armand Middleton MD at 22:48 EDT Reading Location ID and State: [facility] / [place] Tel , Service support , Chest X-Ray 07/21/24 22:40 IMPRESSION: No radiographic evidence of acute cardiopulmonary disease. Cardiomegaly without florid edema. Electronically Signed: Armand Middleton MD at 23:21 EDT Reading Location ID and State: [facility] / [place] Tel , Service support , Active Medications Active Medications Active Medications: Current Medications Generic Name Dose Route Start Last Admin Trade Name Freq PRN Reason Stop Dose Admin Acetaminophen 1,000 mg 07/22/24 10:00 Acetaminophen 500 Mg Tablet PO BID ROSLYN Acetaminophen 650 mg 07/22/24 00:13 Acetaminophen 325 Mg Tablet PO Q4H PRN PRN Fever, pain 1-08/10 Hydrocodone Bitart/Acetaminophen 1 tablet 07/22/24 00:13 07/22/24 03:02 Hydrocodone Bitartrate/Apap 5/325 Tablet PO Not Given Q8H ROSLYN Al Hydrox/Mg Hydrox/Simethicone 15 ml 07/22/24 00:45 Mag /Aluminum/Simeth [facility] Udc 30 Ml Oral.Susp PO Q4H PRN PRN dyspepsia Albuterol Sulfate 2.5 mg 07/22/24 10:00 Albuterol 2.5 Mg/3 Ml Vial.Neb. INHALATION BID [facility] Aspirin 81 mg 07/22/24 08:00 Aspirin 81 Mg Tab.Chew PO DAILYCM [facility] Atorvastatin Calcium 10 mg 07/22/24 22:00 Atorvastatin Calcium 10 Mg Tablet PO QHS [facility] Budesonide 0.5 mg 07/22/24 00:13 07/22/24 06:55 Budesonide Respules 0.5 Mg/2 Ml Ampul.Neb. INHALATION 0.5 mg BID.RT [facility] Administration Calamine/Phenol 1 applic 07/22/24 10:00 Menthol/Lanolin/Calamine/Znox 113 Gm Tube TOPICAL 4X/DAY [facility] Protocol Calcium Polycarbophil 625 mg 07/22/24 10:00 Calcium Polycarbophil 625 Mg Tablet PO 4X/DAY [facility] Clarify Med Order 1 each 07/22/24 07:00 Clarify Order NOTE CLARIFY [facility] Clopidogrel Bisulfate 75 mg 07/22/24 10:00 Clopidogrel Bisulfate 75 Mg Tablet PO DAILY [facility] Enoxaparin Sodium 40 mg 07/22/24 10:00 Enoxaparin 40 Mg/0.4 Ml Syringe SC DAILY [facility] Ferrous Sulfate 325 mg 07/22/24 08:00 Ferrous Sulfate 325 Mg Tablet PO DAILYCM [facility] Fluticasone Propionate 2 spray 07/22/24 10:00 Fluticasone 0.05% 1 [place] Nasal.Sry NASAL DAILY [facility] Gabapentin 400 mg 07/22/24 06:00 07/22/24 06:16 Gabapentin 400 Mg Capsule PO 400 mg TID [facility] Administration Glycerin/Hypromellose/Polyethylene 1 drp 07/22/24 10:00 Glycerin/Hypromellose/[id number] 15 Ml Bottle EACH EYE BID [facility] Hydralazine HCl 5 mg 07/22/24 00:13 Hydralazine 20 Mg/Ml Vial IV 07/23/24 00:13 Q30M PRN maintain BP parameters with HR <60 Hydroxyzine Pamoate 25 mg 07/22/24 10:00 Hydroxyzine Evon 25 Mg Capsule PO BID [facility] Sodium Chloride 1,000 mls @ 100 mls/hr 07/22/24 00:13 07/22/24 00:50 IV 07/22/24 10:12 100 mls/hr .Q10H ROSLYN Administration Sodium Chloride 250 mls @ 15 mls/hr 07/22/24 00:23 IV .[id number] PRN Additional IVPB Infusion Sodium Chloride 250 mls @ 15 mls/hr 07/22/24 00:23 IV .[id number] PRN Saline Flush Labetalol HCl 10 - 20 mg 07/22/24 00:13 Labetalol (Prefilled) 20 Mg/4 Ml IV 07/23/24 00:13 Q10M PRN PRN maintain BP parameters with HR >/=60 Lamotrigine 100 mg 07/22/24 22:00 Lamotrigine 100 Mg Tablet PO QHS ROSLYN Lamotrigine 200 mg 07/22/24 10:00 Lamotrigine 100 Mg Tablet PO BID ROSLYN Levothyroxine Sodium 75 mcg 07/22/24 06:00 07/22/24 06:13 Levothyroxine 75 Mcg Tablet PO 75 mcg DAILY@0600 ROSLYN Administration Loratadine 10 mg 07/22/24 00:13 Loratadine 10 Mg Tablet PO DAILY PRN PRN allergy symptoms Lorazepam 0.5 - 1 mg 07/22/24 00:13 Lorazepam 2 Mg/Ml Syringe IV X1 PRN Anxiety with MRI Melatonin 3 mg 07/22/24 00:13 Melatonin 3 Mg Tablet PO QHS PRN PRN INSOMNIA Non-Formulary Medication 40 mg 07/22/24 10:00 Valbenazine [Ingrezza] PO DAILY [facility] Non-Formulary Medication 15,000 unit 07/22/24 08:00 Lactase [Dairy Relief] PO TIDCM ROSLYN Pantoprazole Sodium 20 mg 07/22/24 10:00 Pantoprazole Sodium 20 Mg Tablet PO BID ROSLYN Polyethylene Glycol 17 gm 07/22/24 10:00 Polyethylene Glycol 3350 17 Gm Packet PO DAILY ROSLYN Prochlorperazine Edisylate 5 mg 07/22/24 00:13 Prochlorperazine 10 Mg/2 Ml Vial IV Q4H PRN PRN Breakthrough Nausea/Vomiting Senna/Docusate Sodium 2 tablet 07/22/24 00:13 Senna/Docusate Sodium 1 Tablet PO BID PRN PRN Constipation Sodium Chloride 10 - 40 ml 07/22/24 00:23 0.9% Saline Lock 10 Ml Syringe IV UD PRN SALINE FLUSH Sucralfate 1 gm 07/22/24 07:00 07/22/24 06:13 Sucralfate 1 Gm Tablet PO 1 gm 0700,1600 ROSLYN Administration Tizanidine HCl 4 mg 07/22/24 10:00 Tizanidine Hcl 2 Mg Tablet PO DAILY ROSLYN Tizanidine HCl 6 mg 07/22/24 22:00 Tizanidine Hcl 2 Mg Tablet PO QHS ROSLYN
[2024-07-22] MEDS: Pantoprazole Sodium 20 MG Tablet PO ×2 (10:34→22:34)
[2024-07-22] MEDS: tiZANidine HCl 2 MG Tablet 4 MG PO (10:34)
[2024-07-22] MEDS: Clopidogrel Bisulfate 75 MG Tablet PO (10:34)
[2024-07-22] MEDS: Aspirin 81 MG TAB.CHEW PO (10:34)
[2024-07-22] MEDS: Polyethylene Glycol 3350 17 GM PACKET PO (10:36)
[2024-07-22] MEDS: hydrOXYzine PAM 25 MG Capsule PO ×2 (10:37→22:35)
[2024-07-22] MEDS: Acetaminophen 500 MG Tablet 1000 MG PO ×2 (10:38→22:35)
[2024-07-22] MEDS: Enoxaparin 40 MG/0.4 ML Syringe SC (10:38)
[2024-07-22] MEDS: lamoTRIgine 100 MG Tablet 200 MG PO ×2 (10:39→22:34)
[2024-07-22] MEDS: Ferrous Sulfate 325 MG Tablet PO (10:39)
[2024-07-22] MEDS: HYDROcodone Bitartrate/Apap 5/325 Tablet PO ×2 (10:46→18:07)
[2024-07-22] MEDS: Glycerin/Hypromellose/PEG400 15 ml Bottle 1 DRP EACH EYE ×2 (10:47→22:33)
[2024-07-22] MEDS: FLU VACCINE **HIGH DOSE** TV 24-25 180 MCG/0.5 ML SYRINGE IM (11:49)
--- NOTE | 2024-07-22 12:02 | PN.HOSP_ITS ---
Subjective Subjective Feels back to baseline, denies any significant symptoms currently Objective Data Objective Data Vital Signs: Vital Signs Temp Pulse Resp BP Pulse Ox O2 Del Method 98.3 F 74 20 H 145/80 H 94 Room Air 07/22/24 11:39 07/22/24 11:39 07/22/24 11:39 07/22/24 11:39 07/22/24 11:39 07/22/24 11:39 Oxygen Delivery Method Room Air Weight: 177 lb 4.026 oz Body Mass Index (BMI) 32.4 Intake & Output: Intake and Output for Last 24 Hours 07/21/24 07/22/24 07/23/24 03:59 03:59 03:59 Intake Total 100 / 100 1989 Output Total 0 / 0 Balance 100 / 100 1989 Lab / Micro Data 07/22/24 03:54 07/22/24 05:10 Labs: Laboratory Results - last 24 hr 07/21/24 22:10: WBC 4.9, RBC 3.71 L, Hgb 12.0, Hct 36.0 L, MCV 97.0, MCH 32.3 H, MCHC 33.3, RDW Std Deviation 44.5 H, RDW Coeff of Lindsey 12.6, Plt Count 222, MPV 9.4, Immature Gran % (Auto) 0.200, Neut % (Auto) 52.8, Lymph % (Auto) 29.4, Bollinger % (Auto) 14.6 H, Eos % (Auto) 2.2, Baso % (Auto) 0.8, Absolute Neuts (auto) 2.6, Absolute Lymphs (auto) 1.45, Nucleated RBC % 0, PT 14.9, INR 1.2, APTT 29.3, Sodium 142, Potassium 2.8 L, Chloride 106, Carbon Dioxide 29.0, Anion Gap 7, BUN 7, Creatinine 0.98, Estim Creat Clear Calc 53.52, Est GFR (MDRD) Af Amer 72, Est GFR (MDRD) Non-Af 60, BUN/Creatinine Ratio 7.1 L, Glucose 121 H, Calcium 8.8, Phosphorus 3.8, Magnesium 1.7, Troponin I High Sens 43 07/22/24 00:45: Troponin I High Sens 43 07/22/24 03:54: WBC 6.6, RBC 3.81 L, Hgb 12.5, Hct 37.3, MCV 97.9, MCH 32.8 H, MCHC 33.5, RDW Std Deviation 45.3 H, RDW Coeff of Lindsey 12.7, Plt Count 197, MPV 9.0, Immature Gran % (Auto) 0.200, Neut % (Auto) 69.5, Lymph % (Auto) 17.0 L, M nelsy % (Auto) 11.4 H, Eos % (Auto) 1.4, Baso % (Auto) 0.5, Absolute Neuts (auto) 4.6, Absolute Lymphs (auto) 1.12, Nucleated RBC % 0, Sodium Cancelled, Potassium Cancelled, Chloride Cancelled, Carbon Dioxide Cancelled, Anion Gap Cancelled, BUN Cancelled, Creatinine Cancelled, Estim Creat Clear Calc Cancelled, Est GFR (MDRD) Af Amer Cancelled, Est GFR (MDRD) Non-Af Cancelled, BUN/Creatinine Ratio Cancelled, Glucose Cancelled, Hemoglobin A1c 4.6, Calcium Cancelled, Total Bilirubin Cancelled, AST Cancelled, ALT Cancelled, Alkaline Phosphatase Cancelled, Troponin I High Sens 33, Total Protein Cancelled, Albumin Cancelled, Globulin Cancelled, Albumin/Globulin Ratio Cancelled, Triglycerides Cancelled, Cholesterol Cancelled, LDL Cholesterol Cancelled, VLDL Cholesterol Cancelled, HDL Cholesterol Cancelled, TSH Cancelled 07/22/24 05:10: Sodium 142, Potassium 3.0 L, Chloride 108 H, Carbon Dioxide 29.0, Anion Gap 5, BUN 5 L, Creatinine 0.82, Estim Creat Clear Calc 65.39, Est GFR (MDRD) Af Amer 90, Est GFR (MDRD) Non-Af 74, BUN/Creatinine Ratio 6.1 L, Glucose 101, Calcium 8.7, Total Bilirubin 0.40, AST 18, ALT 19, Alkaline Phosphatase 90, Total Protein 5.0 L, Albumin 2.8 L, Globulin 2.2, Albumin/Globulin Ratio 1.3, Triglycerides 75, Cholesterol 128, LDL Cholesterol 39, VLDL Cholesterol 15, HDL Cholesterol 74, TSH 0.937 Radiography Diagnostic Testing: Radiology Impression Brain CT 07/21/24 21:55 IMPRESSION: No CT evidence of acute intracranial hemorrhage or injury. Moderate senescent changes with atherosclerosis. N.B. : The above Results were Read Back by Armand Middleton MD to Dima Myers MD, and understanding confirmed on 07/21/2024 22:15:10 (ET). Electronically Signed: Armand Middleton MD at 22:15 EDT Reading Location ID and State: [facility] / [place] Tel , Service support , Head/Neck CTA 07/21/24 21:56 IMPRESSION: Scattered carotid atherosclerosis without cervical or proximal intracranial vascular occlusion or focal flow-limiting stenosis N.B. : The above Results were Read Back by Armand Middleton MD to Dima Myers MD, and understanding confirmed on 07/21/2024 22:46:26 (ET). Electronically Signed: Armand Middleton MD at 22:48 EDT Reading Location ID and State: [facility] / [place] Tel , Service support , Chest X-Ray 07/21/24 22:40 IMPRESSION: No radiographic evidence of acute cardiopulmonary disease. Cardiomegaly without florid edema. Electronically Signed: Armand Middleton MD at 23:21 EDT Reading Location ID and State: [facility] / [place] Tel , Service support , Rhythm Strip Rhythm Strip: sinus jerry Rate: 42 Ectopy: None Physical Exam Narrative General: Alert, Oriented x3, Cooperative, No apparent distress HEENT: Atraumatic, PERRLA, EOMI, Normocephalic Oral: Moist Mucosa Neck: Supple, No JVD Lungs: Diminished, Normal air movement, No rhonchi, No wheeze, No rales Cardiovascular: Regular rate, Regular Rhythm, Normal S1, Normal S2, No murmurs Abdomen: Soft, Non Tender, Non-Distended, No Hepato-splenomegaly Extremities: No edema, Capillary Refill Less than 3 Seconds Skin: No rashes, No breakdown Musculoskeletal: No Tenderness to Palpation of Joints or Extremities Neurological: No focal neurological deficits, chronic left facial asymmetry, motor Exam 5/5 strength throughout, Sensory exam intact to light touch and pain, chronic motor tics Psych/Mental Status: Normal Affect, Appropriate Assessment & Plan Assessment/Plan (1) CVA (cerebral vascular accident): PLAN: Plan #1. Left upper extremity weakness, left-sided facial droop concerning for acute CVA with previous history of stroke, unclear prior deficits: Will admit to PCU, to be cautious given patient pain compliant and high fall risk/risk of frequent falls will obtain plain film of the LUE/shoulder, will obtain MRI Brain, noted 02/16/2022 echocardiogram with normal LV systolic function, EF 65%, mildly enlarged LA, trivial MVI, trivial TVI, trivial PVI, RVSP 27 mmHg with evidence of diastolic dysfunction with bubble contrast study negative for [id number]-sk-[id number] interatrial shunt but given #2 have requested repeat ECHO, PT/OT/Speech/Nutrition evaluation per protocol. Will allow permissive HTN, maintain on asa/Plavix, statin w/ AM FLP, fall precautions. Mag, TSH, HgbA1c requested. Maintain on fall and aspiration precautions. Will continue ED initiated neurology consultation. 07/22/2024: Echo is pending as is MRI #2. Bradycardia, asymptomatic: Patient with bradycardia in the ED, not on any rate or rhythm agents, will maintain on telemetry monitoring, will cycle cardiac enzymes, magnesium, TSH, current medication list with no overt medication reason, ECHO requested, may consider Cardiology involvement if ongoing with concerns arising/symptomatic. #3. Hypokalemia: Admission K+ 2.8, magnesium level requested, supplementation given, repeat level in AM. #4. Carotid disease: Patient with previous TIA/CVA 01/2022 with noted carotid disease at that time with approximate 80% left-sided carotid stenosis on CTA but follow-up carotid ultrasound with bilaterally less than 50% noted disease however no imaging since then. #5. Chronic asthma with allergic rhinitis: Will temporally hold home inhaler and in the interim transition to ATC budesonide therapy, PRN albuterol, HOB, IS parameters, continue fluticasone as well as Zyrtec, regimen. #6. Hypertension: Given presentation we will continue permissive hypertension per stroke protocol with as needed agents. 07/22/2024: Can resume if MRI comes back negative #7. Hyperlipidemia: Continue home statin regimen. AM FLP. #8. Chronic Kidney Disease Stage II per GFR trending: Admission BUN/Cr 7/0.98, baseline renal function primarily 0.8-1.0, repeat BMP in AM. #9. Cerebral palsy with significant kyphosis/scoliosis with frequent falls, chronic neuropathy: Will cautiously continue patient home chronic gabapentin regimen, maintain on fall precautions, frequent positional changes, PT/OT/case management consulted for discharge planning. Will cautiously continue patient judicious tizanidine usage but hold for sedation. #10. Anxiety and depression/bipolar disorder/history of previous benzodiazepine dependence: Following with Dr. Judd, encourage continued close outpatient follow-up, we will continue patient home lamotrigine as well as hydroxyzine regimen, level requested. Will continue patient home Ingrezza regimen concurrently. #11. Hypothyroidism: We will continue patient home levothyroxine regimen, TSH requested. #12. GERD: We will continue patient on PPI and sucralfate regimen. #13. Chronic migraines: Given presentation with stroke rule out will temporarily hold patient home atogepant regimen, add back if MRI negative. DVT: Lovenox Charges/Coding Visit Charges Inpatient E&M: 68587 Subs Hosp L2
--- NOTE | 2024-07-22 15:39 | CASEMGMT ---
Social Work SW did speak w/son in law in room earlier, let him know we have not heard back from [facility], pt may be here until Wednesday. Pt's son in law states pt seems to be doing better now. BRYCE checked [facility] multiple times, no response from [facility]. SW called daughter this afternoon, no answer at home. BRYCE spoke w/medical charge entry specialist, pt's daughter is here. SW will check in w/her shortly. ASH Licona
--- NOTE | 2024-07-22 16:10 | CASEMGMT ---
Social Work Pt completed PHQ-9 w/SW. Pt has depression and bipolar, and struggles w/mental health. Pt does have a therapist, Mickey, with whom she speaks every week. She also sees Dr. Dejesus for med management. Additionally, she has a piano case and bench assembler Aimee Barajas with [employer] with whom she speaks. Pt spoke of many difficulties and struggles, support given. Pt does not want any additional resources at this time however. SW remains available for support to pt as needed. ASH Licona
--- NOTE | 2024-07-22 16:13 | CASEMGMT ---
Social Work SW spoke w/pt in room, completed SDOH and PHQ-9 w/pt. SW offered support to pt. Pt confirms from [place] at [facility], has been there for four years. She plans to return at discharge. Pt states they help with meds(she does some on her own though), meals, bathing. Pt is able to dress herself. She gets around w/a walker at [facility]. She does not want to go anywhere but back home to [facility]. Pt has a CM, Aimee Barajas, with whom she speaks daily. Pt also has a therapist with whom she speaks weekly, and Dr. Dejesus for psychiatry. SW did leave Aimee a message letting her know pt is here, was negative for a stroke and likely to return to [place] tomorrow. SW also mentioned pt seems to be having a difficult time at present with all that is going on. SW sent updates in [facility], green sheet and transport form placed on chart. SW will continue to follow if pt is still here Wednesday. ASH Licona
[2024-07-22] MEDS: Albuterol 2.5 MG/3 ML VIAL.NEB. INHALATION (19:08)
--- NOTE | 2024-07-22 21:50 | PN.HOSP_ITS ---
Hospitalist Note Given MRI negative reported per staff combat information center officer will restart HTN regimen and transition to PRN hydralazine not on CVA order set.
--- NOTE | 2024-07-22 21:50 | PCM.HOSP.N ---
Hospitalist Note Given MRI negative reported per staffing administrator will restart HTN regimen and transition to PRN hydralazine not on CVA order set.
[2024-07-22] MEDS: Losartan Potassium 25 MG Tablet PO (22:33)
[2024-07-22] MEDS: lamoTRIgine 100 MG Tablet PO (22:34)
[2024-07-22] MEDS: Atorvastatin Calcium 10 MG Tablet PO (22:34)
[2024-07-22] MEDS: tiZANidine HCl 2 MG Tablet 6 MG PO (22:36)
[2024-07-23] MEDS: HYDROcodone Bitartrate/Apap 5/325 Tablet PO ×2 (01:06→10:22)
[2024-07-23 01:23] VITALS: BP 109/65
[2024-07-23 03:15] VITALS: BP 110/81; PULSE 60; RESP 16; TEMP 36.6; O2SAT 100
[2024-07-23 06:00] VITALS: BMI 33.7
[2024-07-23] MEDS: Sucralfate 1 GM Tablet PO (06:01)
[2024-07-23] MEDS: Levothyroxine 75 MCG Tablet PO (06:01)
[2024-07-23] MEDS: Gabapentin 400 MG Capsule PO (06:02)
[2024-07-23 06:46] VITALS: PULSE 74; RESP 20; O2SAT 96
[2024-07-23] MEDS: Budesonide Respules 0.5 MG/2 ML AMPUL.NEB. INHALATION (06:46)
[2024-07-23] MEDS: Albuterol 2.5 MG/3 ML VIAL.NEB. INHALATION (06:46)
[2024-07-23 06:52] LABS: Anion Gap 7 (5-15); BUN 4 mg/dL (7-18); BUN/Creat Ratio 5.6 RATIO (10-20); Calcium,Total 8.6 mg/dL (8.5-10.1); Chloride 105 mmol/L (98-107); Creatinine, Serum 0.72 mg/dL (0.55-1.02); EST Glomerular Filtration Rate 86 mL/min (>60); Est Glom Filt Rate - Afr Amer 105 mL/min (>60); Estimated Creatinine Clearance 68.49 ml/min; Glucose 94 mg/dL (74-106); Potassium 3.6 mmol/L (3.5-5.1); Sodium Level 137 mmol/L (136-145)
[2024-07-23 10:09] VITALS: BP 212/73; PULSE 70; RESP 18; TEMP 36.7; O2SAT 94
[2024-07-23] MEDS: hydrOXYzine PAM 25 MG Capsule PO (10:11)
[2024-07-23] MEDS: Pantoprazole Sodium 20 MG Tablet PO (10:11)
[2024-07-23] MEDS: tiZANidine HCl 2 MG Tablet 4 MG PO (10:11)
[2024-07-23] MEDS: Aspirin 81 MG TAB.CHEW PO (10:12)
[2024-07-23] MEDS: Acetaminophen 500 MG Tablet 1000 MG PO (10:12)
[2024-07-23] MEDS: Ferrous Sulfate 325 MG Tablet PO (10:13)
[2024-07-23] MEDS: Losartan Potassium 25 MG Tablet PO (10:13)
[2024-07-23] MEDS: Glycerin/Hypromellose/PEG400 15 ml Bottle 1 DRP EACH EYE (10:13)
[2024-07-23] MEDS: Enoxaparin 40 MG/0.4 ML Syringe SC (10:15)
[2024-07-23] MEDS: Polyethylene Glycol 3350 17 GM PACKET PO (10:16)
[2024-07-23] MEDS: Fluticasone 0.05% 1 SPRAY NASAL.SRY 2 SPRAY NASAL (10:16)
[2024-07-23] MEDS: Clopidogrel Bisulfate 75 MG Tablet PO (10:17)
[2024-07-23] MEDS: proCHLORPERazine 10 MG/2 ML Vial 5 MG IV (10:22)
--- NOTE | 2024-07-23 10:27 | DCINST_ITS ---
Discharge Instructions Diet Discharge Diet: No restrictions Activity Discharge Activity: Return to Normal Activity Dressing / Incision Call your doctor if you observe: Fever of 101 or Higher, Shortness of breath, Dizziness, Fainting spells, Swelling in the ankles, Chest pain and Increased palpitations (irregular heartbeat) Follow Up Care Test Results: Test results from this visit will be discussed in further detail at your follow- up appointment, if applicable. Discharge Plan Admission Admit Date/Time: 07/21/24 23:07 Attending Provider: Nghia Nath Primary Care Provider: Alex Self Consulting Providers: Dwight Mancuso; Luis E Núñez; Charmaine Zepeda; Jaelyn Velázquez; Lilliam Miller; Nicolas Luong; Janneth Villarreal; Harley Burch; Michael Lao; Kolby Torres; Angy Le; Armand Valdez; Idania Gregorio; Juliana Duarte; Hollie Gudino; Naoh Holland; Luis Rivas; Heriberto Leos; Kathryn Wagner; Shakira Seals; Karie Jeffers Discharge Orders/Prescriptions Prescriptions: Continued aspirin 81 mg tablet,chewable 81 mg PO DAILY lamotrigine 200 mg tablet 200 mg PO BID ammonium lactate 12 % cream 1 applic topical PRN calcium polycarbophil [Fiber Laxative (ca polycarbo)] 625 mg tablet 625 mg PO 4X/DAY nystatin 100,000 unit/gram powder 1 applic topical DAILY PRN (Reason: SKIN) losartan 25 mg tablet 25 mg PO BID rabeprazole 20 mg tablet,delayed release (DR/EC) 20 mg PO BID Qty: 60 12RF triamcinolone acetonide 0.1 % cream 1 applic topical DAILY PRN (Reason: PER DR) cholecalciferol (vitamin D3) 50 mcg (2,000 unit) capsule 50 mcg PO DAILY ibandronate 150 mg tablet 150 mg PO QMONTH Rx Instructions: every month rosuvastatin 5 mg tablet 5 mg PO QHS gabapentin 600 mg tablet 400 mg PO TID budesonide 0.25 mg/2 mL suspension for nebulization 500 mg inhalation DAILY Patient Comments: paperwork says 500mg formoterol fumarate 20 mcg/2 mL solution for nebulization 2 ml inhalation BID Zyrtec 10 mg capsule 10 mg PO DAILY PRN (Reason: allergy symptoms) hydrocodone-acetaminophen 5-325 mg tablet 1 tab PO Q8H Artificial Tears (cmc) 1 % drops 1 drp ophthalmic (eye) BID hydroxyzine pamoate 25 mg capsule 25 mg PO BID Qty: 60 2RF fluticasone propionate 1 SPRAY spray,suspension 2 spray NASAL DAILY multivitamin 1 EACH tablet 1 ea PO DAILY polyethylene glycol 3350 17 GM packet 17 g PO DAILY albuterol sulfate 1 INHALER inhaler 2 puff inhalation Q6H PRN PRN (Reason: Sob &/Or Wheezing) diclofenac sodium 1 APPLIC gel 1 applic topical Q6H PRN PRN (Reason: Pain) promethazine 25 MG tablet 25 mg PO Q6H PRN PRN (Reason: Nausea) cyanocobalamin (vitamin B-12) 1,000 mcg/mL solution 1,000 mcg IM Q2W acetaminophen [Acetaminophen Extra Strength] 500 mg Tablet 1,000 mg PO BID ferrous sulfate 325 mg (65 mg iron) tablet 325 mg PO DAILY clopidogrel [Plavix] 75 mg Tablet 75 mg PO DAILY calcium carbonate-vitamin D2 500 mg(1,250mg) -200 unit Tablet 1 tab PO BID aluminum-magnesium hydroxide 200-200 mg/5 mL suspension 15 ml PO Q4H PRN (Reason: dyspepsia) hydrocortisone 2.5 % cream 1 applic topical TID PRN (Reason: skin irritation) lamotrigine 100 mg tablet 100 mg PO QHS Rx Instructions: take with 200mg tab levothyroxine 75 mcg tablet 75 mcg PO DAILY magnesium oxide 400 mg magnesium capsule 400 mg PO DAILY albuterol sulfate 2.5 mg /3 mL (0.083 %) solution for nebulization 2.5 mg inhalation BID lactase [Dairy Relief] 3,000 unit tablet 15,000 unit PO TIDCM Rx Instructions: 5-10 TABS Ingrezza 40 mg capsule 40 mg PO DAILY meclizine 12.5 mg tablet 12.5 mg PO BID tizanidine 4 mg tablet 4 mg PO DAILY Patient Comments: AFTERNOON MED Qulipta 30 mg tablet 30 mg PO DAILY tizanidine 2 mg tablet 6 mg PO QHS sucralfate [Carafate] 1 gram tablet 1 g PO BID Qty: 60 0RF Referrals / Follow Up: Alex Self MD [Primary Care Provider] - Within 1 Week Disposition Disposition (needs filled in before D/C Order can be placed): Assisted Living
--- NOTE | 2024-07-23 10:36 | NURSING ---
I spoke to the pt's supervisor contact and service clerks Patty to inform her that the pt will be d/c today.
[2024-07-23] MEDS: lamoTRIgine 100 MG Tablet 200 MG PO (11:47)
[2024-07-23] MEDS: Rizatriptan Benzoate 5 MG Tablet PO (11:47)
--- NOTE | 2024-07-23 12:33 | PCM.DC.SUM ---
Providers Date of Admission: 07/21/24 Primary Care Physician: Dr. Alex Self MD Consultations 07/22/24 00:13 Consult: Tele-Neurology Routine Consulting Provider: [facility] Reason for Consult: Acute Ischemic Stroke/TIA EMERGENT Consult: No MD Notified: Yes Date Notified: 07/22/24 Time Notified: 00:36 Method of Notification: ED Physician Initiated Nursing Unit Staff Notify [facility] of Tele-Neurology Consult: Yes Reason For Visit: CVA, BRADYCARDIA, HYPOKALEMIA Diagnosis Discharge Diagnosis (1) CVA (cerebral vascular accident): Status: Acute Code(s): I63.9 - Cerebral infarction, unspecified Plan 8 Medications at Discharge Home Medications fluticasone propionate 50 mcg/actuation nasal spray,suspension 2 spray NASAL DAILY congestion 01/03/16 aspirin 81 mg chewable tablet 81 mg PO DAILY heart health 12/16/17 multivitamin 1 ea PO DAILY supplement 12/02/18 polyethylene glycol 3350 17 gram oral powder packet 17 g PO DAILY bowels 06/22/19 albuterol sulfate 90 mcg/actuation aerosol inhaler 2 puff inhalation Q6H PRN PRN Sob &/Or Wheezing 04/16/20 diclofenac sodium 1 % topical gel 1 applic topical Q6H PRN PRN Pain 04/16/20 promethazine 25 mg tablet 25 mg PO Q6H PRN PRN Nausea 01/07/21 acetaminophen 500 mg tablet (Acetaminophen Extra Strength) 1,000 mg PO BID Pain 09/18/21 lamotrigine 200 mg tablet 200 mg PO BID seizures 01/14/22 clopidogrel 75 mg tablet (Plavix) 75 mg PO DAILY antiplatelet 02/15/22 calcium carb-ergocalciferol (vit D2) 500 mg (1,250 mg)-200 unit tablet 1 tab PO BID supplement 04/16/22 ammonium lactate 12 % topical cream 1 applic topical PRN skin 06/17/22 calcium polycarbophil 625 mg tablet (Fiber Laxative (calcium polycarbophil)) 625 mg PO 4X/DAY bowels 06/17/22 nystatin 100,000 unit/gram topical powder 1 applic topical DAILY PRN SKIN 06/17/22 ferrous sulfate 325 mg (65 mg iron) tablet 325 mg PO DAILY supplement 09/07/22 losartan 25 mg tablet 25 mg PO BID blood pressure 09/07/22 rabeprazole 20 mg tablet,delayed release 20 mg PO BID GI health #60 tabs 11/24/22 cholecalciferol (vitamin D3) 50 mcg (2,000 unit) capsule 50 mcg PO DAILY supplement 12/03/22 triamcinolone acetonide 0.1 % topical cream 1 applic topical DAILY PRN skin 12/03/22 ibandronate 150 mg tablet 150 mg PO QMONTH bone health 04/29/23 cyanocobalamin (vitamin B-12) 1,000 mcg/mL injection solution 1,000 mcg IM Q2W supplement 05/31/23 gabapentin 600 mg tablet 400 mg PO TID pain/nerves 05/31/23 rosuvastatin 5 mg tablet 5 mg PO QHS cholesterol 05/31/23 cetirizine 10 mg capsule (Zyrtec) 10 mg PO DAILY PRN allergy symptoms 06/16/23 formoterol fumarate 20 mcg/2 mL solution for nebulization 2 ml inhalation BID breathing 06/16/23 hydrocodone-acetaminophen 5-325mg 5mg-325mg 1 tab PO Q8H pain 12/23/23 aluminum-magnesium hydroxide 200 mg-200 mg/5 mL oral suspension 15 ml PO Q4H PRN dyspepsia 01/24/24 hydrocortisone 2.5 % topical cream 1 applic topical TID PRN skin irritation 01/24/24 lamotrigine 100 mg tablet 100 mg PO QHS seizures 01/24/24 levothyroxine 75 mcg tablet 75 mcg PO DAILY thyroid 01/24/24 hydroxyzine pamoate 25 mg capsule 25 mg PO BID anxiety #60 caps 03/14/24 carboxymethylcellulose sodium 1 % eye drops (Artificial Tears (carboxymethylcellulose)) 1 drp ophthalmic (eye) BID eye dryness 03/17/24 magnesium oxide 400 mg PO DAILY supplement 03/21/24 budesonide 0.25 mg/2 mL suspension for nebulization 500 mg inhalation DAILY breathing 04/20/24 sucralfate 1 gram tablet (Carafate) 1 g PO BID stomach #60 tabs 05/16/24 albuterol sulfate 2.5 mg/3 mL (0.083 %) solution for nebulization 2.5 mg inhalation BID breathing 07/21/24 atogepant 30 mg tablet (Qulipta) 30 mg PO DAILY migraines 07/21/24 lactase 3,000 unit tablet (Dairy Relief) 15,000 unit PO TIDCM lactose intolerance 07/21/24 meclizine 12.5 mg tablet 12.5 mg PO BID dizziness 07/21/24 tizanidine 2 mg tablet 6 mg PO QHS muscle relaxer 07/21/24 tizanidine 4 mg tablet 4 mg PO DAILY muscle relaxer 07/21/24 valbenazine 40 mg capsule (Ingrezza) 40 mg PO DAILY tardive dyskinesia 07/21/24 Hospital Course Operations None Procedures 2-D Echocardiogram Summary of Care Provided Minutes Spent on Discharge: 36 Hospital Course: Per HPI: The patient is a 69 y/o F w/ PMHx: Chronic migraines, CKD stage II per GFR trending, Carotid stenosis (approximate 80% left carotid stenosis anxiety and Depression/Bipolar disorder, Hx of BZD dependence, PVD, GERD, HTN, HLD, Asthma, Chronic migraines, Kyphosis/Scoliosis, Frequent Falls, Hypothyroidism, Cerebral Palsy who presents to the [facility] ED on 07/21/24 with history of onset at facility left-sided weakness as well as left-sided facial droop with last known normal at approximately 1600 reported per EMS with visualized new neurological deficits potentially around 2200 with a previous remote stroke but unclear pre-existing deficits with noted difficulty lifting her left arm which she reports secondary to pain not necessarily a neurological deficit. In the ED her initial NIH stroke scale per physician 2 with 1 for facial palsy and 1 for left upper extremity motor. Workup in the ED included T97.5, heart rate 43, BP 126/70, respiratory rate 16, 93% on room air with most recent repeat vitals heart rate 45, BP 117/82, respiratory rate 18, 99% on room air, CBC with WBC 4.9, hemoglobin 12, MCV 97, platelet 222 without marked shift, unremarkable coags, BMP with potassium 2.8, glucose 121, troponin 43, CTA of the head neck with scattered carotid atherosclerosis without any cervical proximal intracranial vascular occlusion or flow-limiting stenosis, CT of the head with no acute intracranial findings, chest x-ray with no acute cardiopulmonary findings, EKG with SB with no acute evidence of ischemia. In the ED patient administered no medications. Telestroke evaluation performed. Hospital Course: #1. Left upper extremity weakness, left-sided facial droop concerning for acute CVA with previous history of stroke, unclear prior deficits: Will admit to PCU, to be cautious given patient pain compliant and high fall risk/risk of frequent falls will obtain plain film of the LUE/shoulder, will obtain MRI Brain, noted 02/16/2022 echocardiogram with normal LV systolic function, EF 65%, mildly enlarged LA, trivial MVI, trivial TVI, trivial PVI, RVSP 27 mmHg with evidence of diastolic dysfunction with bubble contrast study negative for [id number] interatrial shunt but given #2 have requested repeat ECHO, PT/OT/Speech/Nutrition evaluation per protocol. Will allow permissive HTN, maintain on asa/Plavix, statin w/ AM FLP, fall precautions. Mag, TSH, HgbA1c requested. Maintain on fall and aspiration precautions. Will continue ED initiated neurology consultation. 07/22/2024: Echo is pending as is MRI 07/23/2024: MRI was unremarkable did not demonstrate a stroke, echo was also unremarkable with an EF of 60% and mild to moderate aortic stenosis with no ASD. I discussed with her the plan for discharge today she expressed understanding the risk benefits of going back to her assisted living and she would like to go back today. Her blood pressure does cycle high at times reviewing her blood pressures from previous admissions she can be very high prior to giving her blood pressure medications so will not make any adjustments at this time #2. Bradycardia, asymptomatic: Patient with bradycardia in the ED, not on any rate or rhythm agents, will maintain on telemetry monitoring, will cycle cardiac enzymes, magnesium, TSH, current medication list with no overt medication reason, ECHO requested, may consider Cardiology involvement if ongoing with concerns arising/symptomatic. #3. Hypokalemia: Admission K+ 2.8, magnesium level requested, supplementation given, repeat level in AM. #4. Carotid disease: Patient with previous TIA/CVA 01/2022 with noted carotid disease at that time with approximate 80% left-sided carotid stenosis on CTA but follow-up carotid ultrasound with bilaterally less than 50% noted disease however no imaging since then. #5. Chronic asthma with allergic rhinitis: Will temporally hold home inhaler and in the interim transition to ATC budesonide therapy, PRN albuterol, HOB, IS parameters, continue fluticasone as well as Zyrtec, regimen. #6. Hypertension: Given presentation we will continue permissive hypertension per stroke protocol with as needed agents. 07/22/2024: Can resume if MRI comes back negative #7. Hyperlipidemia: Continue home statin regimen. AM FLP. #8. Chronic Kidney Disease Stage II per GFR trending: Admission BUN/Cr 7/0.98, baseline renal function primarily 0.8-1.0, repeat BMP in AM. #9. Cerebral palsy with significant kyphosis/scoliosis with frequent falls, chronic neuropathy: Will cautiously continue patient home chronic gabapentin regimen, maintain on fall precautions, frequent positional changes, PT/OT/case management consulted for discharge planning. Will cautiously continue patient judicious tizanidine usage but hold for sedation. #10. Anxiety and depression/bipolar disorder/history of previous benzodiazepine dependence: Following with Dr. Judd, encourage continued close outpatient follow-up, we will continue patient home lamotrigine as well as hydroxyzine regimen, level requested. Will continue patient home Ingrezza regimen concurrently. #11. Hypothyroidism: We will continue patient home levothyroxine regimen, TSH requested. #12. GERD: We will continue patient on PPI and sucralfate regimen. #13. Chronic migraines: Given presentation with stroke rule out will temporarily hold patient home atogepant regimen, add back if MRI negative. Physical Exam Narrative General: Alert, Oriented x3, Cooperative, No apparent distress HEENT: Atraumatic, PERRLA, EOMI, Normocephalic Oral: Moist Mucosa Neck: Supple, No JVD Lungs: Diminished, Normal air movement, No rhonchi, No wheeze, No rales Cardiovascular: Regular rate, Regular Rhythm, Normal S1, Normal S2, No murmurs Abdomen: Soft, Non Tender, Non-Distended, No Hepato-splenomegaly Extremities: No edema, Capillary Refill Less than 3 Seconds Skin: No rashes, No breakdown Musculoskeletal: No Tenderness to Palpation of Joints or Extremities Neurological: No focal neurological deficits, chronic left facial asymmetry, motor Exam 5/5 strength throughout, Sensory exam intact to light touch and pain, chronic motor tics Psych/Mental Status: Normal Affect, Appropriate Medical Records Data Medical Nutrition Assessment Dietitian: Malnutrition Criteria Met Start: 07/22/24 12:11 Freq: Status: Active Protocol: Document 07/22/24 12:11 SB (Rec: 07/22/24 12:11 SB [id number]) Nutrition Malnutrition Evidence of Malnutrition Exists Yes Malnutrition (severe): Acute Illness/Injury Evidenced By Suboptimal Energy Intake ( Severe),Weight Loss (Severe) Clinical Problem Acute Disease or Injury Related Malnutrition Etiology severe related to inadequate oral intake Signs/Symptoms as evidenced by PO meeting >50 % of estimated needs x 1 month and 8.7% weight loss x 2 months, per pt report. Status Active Problem Recommendation Dietitian Recommendations/Changes Adjust to liberal regular diet d/t signs and symptoms of malnutrition. Will discuss [facility] acceptance with pt again at time of follow-up. Will monitor weight, as available. Reviewed and approved by Lilia Murphy RDN, LD. Weight / BMI Weight Weight: 184 lb 11.958 oz Body Mass Index (BMI) 33.7 ABG / Lab / Microbiology Data 07/22/24 03:54 07/23/24 04:45 Laboratory: Laboratory Results - last 24 hr 07/23/24 04:45: Sodium 137, Potassium 3.6, Chloride 105, Carbon Dioxide 25.0, Anion Gap 7, BUN 4 L, Creatinine 0.72, Estim Creat Clear Calc 68.49, Est GFR (MDRD) Af Amer 105, Est GFR (MDRD) Non-Af 86, BUN/Creatinine Ratio 5.6 L, Glucose 94, Calcium 8.6 Radiography Diagnostic Testing: Radiology Impression Brain MRI 07/22/24 00:13 IMPRESSION: 1. No MRI evidence of acute or subacute ischemic infarct or remote cortical-based ischemic infarct. 2. Chronic white matter ischemic changes in both cerebral hemispheres and across the central pontine tegmentum. Electronically Signed: Hardeep Martin MD at 14:15 EDT Reading Location ID and State: [facility] / [place] , Service support , D/C Instructions Discharge Diet: No restrictions Call your doctor if you observe: Fever of 101 or Higher, Shortness of breath, Dizziness, Fainting spells, Swelling in the ankles, Chest pain and Increased palpitations (irregular heartbeat) Meaningful Use Info Meaningful Use Meaningful Use Diagnoses (Choose all that apply): None applicable Ischemic Stroke Statin Dosing Therapy Reference: STATIN DOSE THERAPY REFERENCE: * Patients > 75 years receive moderate or high dose statin therapy. * Patients 75 years or YOUNGER should receive HIGH intensity statin dose unless contraindicated. You will be required to document reason for non-treatment if statin daily dose does not meet guidelines. HIGH DOSE STATIN THERAPY DAILY Atorvastatin > than or = to 40 mg Rosuvastatin > than or = to 20 mg Amlodipine + Atorvastatin > than or = to 2.5/40 mg Ezetimibe + Simvastatin 10/80 mg Simvastatin 80mg Discharge Plan Admission Admit Date/Time: 07/21/24 23:07 Attending Provider: Nghia Nath Primary Care Provider: Alex Self Consulting Providers: Dwight Mancuso; Luis E Núñez; Charmaine Zepeda; Jaelyn Velázquez; Lilliam Miller; Nicolas Luong; Janneth Villarreal; Harley Burch; Michael Lao; Kolby Torres; Angy Le; Armand Valdez; Idania Gregorio; Juliana Duarte; Hollie Gudino Didier; Noah Holland; Luis Rivas; Heriberto Leos; Kathryn Wagner; Shakira Seals; Karie Jeffers Discharge Orders/Prescriptions Prescriptions: Continued aspirin 81 mg tablet,chewable 81 mg PO DAILY lamotrigine 200 mg tablet 200 mg PO BID ammonium lactate 12 % cream 1 applic topical PRN calcium polycarbophil [Fiber Laxative (ca polycarbo)] 625 mg tablet 625 mg PO 4X/DAY nystatin 100,000 unit/gram powder 1 applic topical DAILY PRN (Reason: SKIN) losartan 25 mg tablet 25 mg PO BID rabeprazole 20 mg tablet,delayed release (DR/EC) 20 mg PO BID Qty: 60 12RF triamcinolone acetonide 0.1 % cream 1 applic topical DAILY PRN (Reason: skin) cholecalciferol (vitamin D3) 50 mcg (2,000 unit) capsule 50 mcg PO DAILY ibandronate 150 mg tablet 150 mg PO QMONTH Rx Instructions: 27th every month rosuvastatin 5 mg tablet 5 mg PO QHS gabapentin 600 mg tablet 400 mg PO TID budesonide 0.25 mg/2 mL suspension for nebulization 500 mg inhalation DAILY Patient Comments: paperwork says 500mg formoterol fumarate 20 mcg/2 mL solution for nebulization 2 ml inhalation BID Zyrtec 10 mg capsule 10 mg PO DAILY PRN (Reason: allergy symptoms) hydrocodone-acetaminophen 5-325 mg tablet 1 tab PO Q8H Artificial Tears (cmc) 1 % drops 1 drp ophthalmic (eye) BID hydroxyzine pamoate 25 mg capsule 25 mg PO BID Qty: 60 2RF fluticasone propionate 1 SPRAY spray,suspension 2 spray NASAL DAILY multivitamin 1 EACH tablet 1 ea PO DAILY polyethylene glycol 3350 17 GM packet 17 g PO DAILY albuterol sulfate 1 INHALER inhaler 2 puff inhalation Q6H PRN PRN (Reason: Sob &/Or Wheezing) diclofenac sodium 1 APPLIC gel 1 applic topical Q6H PRN PRN (Reason: Pain) promethazine 25 MG tablet 25 mg PO Q6H PRN PRN (Reason: Nausea) cyanocobalamin (vitamin B-12) 1,000 mcg/mL solution 1,000 mcg IM Q2W acetaminophen [Acetaminophen Extra Strength] 500 mg Tablet 1,000 mg PO BID ferrous sulfate 325 mg (65 mg iron) tablet 325 mg PO DAILY clopidogrel [Plavix] 75 mg Tablet 75 mg PO DAILY calcium carbonate-vitamin D2 500 mg(1,250mg) -200 unit Tablet 1 tab PO BID aluminum-magnesium hydroxide 200-200 mg/5 mL suspension 15 ml PO Q4H PRN (Reason: dyspepsia) hydrocortisone 2.5 % cream 1 applic topical TID PRN (Reason: skin irritation) lamotrigine 100 mg tablet 100 mg PO QHS Rx Instructions: take with 200mg tab levothyroxine 75 mcg tablet 75 mcg PO DAILY magnesium oxide 400 mg magnesium capsule 400 mg PO DAILY albuterol sulfate 2.5 mg /3 mL (0.083 %) solution for nebulization 2.5 mg inhalation BID lactase [Dairy Relief] 3,000 unit tablet 15,000 unit PO TIDCM Rx Instructions: 5-10 TABS Ingrezza 40 mg capsule 40 mg PO DAILY meclizine 12.5 mg tablet 12.5 mg PO BID tizanidine 4 mg tablet 4 mg PO DAILY Patient Comments: [facility] Qulipta 30 mg tablet 30 mg PO DAILY tizanidine 2 mg tablet 6 mg PO QHS sucralfate [Carafate] 1 gram tablet 1 g PO BID Qty: 60 0RF Referrals / Follow Up: Alex Self MD [Primary Care Provider] - Within 1 Week Disposition Disposition (needs filled in before D/C Order can be placed): Assisted Living Charges/Coding Visit Charges Inpatient E&M: 44397 Disch Hosp >30min
--- NOTE | 2024-07-24 09:53 | CASEMGMT ---
Social Work DC orders and summary faxed to Aimee Barajas, [facility] Mellisa Wheeler
[2024-07-25 17:08] LABS: Lamotrigine (Lamictal) Level 19.8 ug/mL (2.0-20.0)
== END 2024-07-23 13:51 | disposition home or self-care (01) | DRG 92 ==
LOC: ED 23:15 → PCU 23:20
PROVIDERS: Admitting Provider Family Medicine; Emergency Provider Emergency Medicine; PCP Family Medicine; Visit Provider Family Medicine
DX: R29.810 Facial weakness (principal); F31.89 Other bipolar disorder; D64.9 Anemia, unspecified; G80.9 Cerebral palsy, unspecified; E03.9 Hypothyroidism, unspecified; J45.909 Unspecified asthma, uncomplicated; I12.9 Hypertensive chronic kidney disease with stage 1 through stage 4 chronic kidney disease, or unspecified chronic kidney disease; I65.29 Occlusion and stenosis of unspecified carotid artery; E87.6 Hypokalemia; G62.9 Polyneuropathy, unspecified; G43.709 Chronic migraine without aura, not intractable, without status migrainosus; M79.7 Fibromyalgia; N18.2 Chronic kidney disease, stage 2 (mild); E78.00 Pure hypercholesterolemia, unspecified; K21.9 Gastro-esophageal reflux disease without esophagitis; I25.10 Atherosclerotic heart disease of native coronary artery without angina pectoris; Z86.73 Personal history of transient ischemic attack (TIA), and cerebral infarction without residual deficits; Z82.3 Family history of stroke; Z79.82 Long term (current) use of aspirin; Z80.0 Family history of malignant neoplasm of digestive organs; Z79.2 Long term (current) use of antibiotics; Z79.83 Long term (current) use of bisphosphonates; Z51.5 Encounter for palliative care; Z79.891 Long term (current) use of opiate analgesic; Z66 Do not resuscitate; Z79.51 Long term (current) use of inhaled steroids; Z23 Encounter for immunization
CPT/HCPCS: 36415; 70450; 70496; 70498; 70551; 71045; 80048; 80053; 80061; 82542; 83036; 83735; 84100; 84443; 84484; 85025; 85610; 85730; 90662; 92526; 92610; 93005; 93306; 94640; 94668; 94762; 97110; 97162; 97166; 97535; 97802; 99285; Q9967; A4216

== ENCOUNTER → 2024-07-31 | Outpatient (REF) | payer MEDICARE, SELFPAY ==
[2024-07-31 08:14] LABS: Anion Gap 5 (5-15); BUN 7 mg/dL (7-18); BUN/Creat Ratio 9.6 RATIO (10-20); Calcium,Total 8.9 mg/dL (8.5-10.1); Chloride 106 mmol/L (98-107); Creatinine, Serum 0.73 mg/dL (0.55-1.02); EST Glomerular Filtration Rate 84 mL/min (>60); Est Glom Filt Rate - Afr Amer 102 mL/min (>60); Glucose 89 mg/dL (74-106); Potassium 3.7 mmol/L (3.5-5.1); Sodium Level 143 mmol/L (136-145)
== END ==
LOC: OLS.SWAL 04:00
PROVIDERS: PCP Family Medicine
DX: I10 Essential (primary) hypertension (principal)
CPT/HCPCS: 36415; 80048

== ENCOUNTER → 2024-08-07 | Outpatient (REF) | payer MEDICARE, MEDICAID, SELFPAY ==
[2024-08-07 11:14] LABS: Anion Gap 5 (5-15); BUN 6 mg/dL (7-18); BUN/Creat Ratio 8.1 RATIO (10-20); Calcium,Total 9.3 mg/dL (8.5-10.1); Chloride 110 mmol/L (98-107); Creatinine, Serum 0.74 mg/dL (0.55-1.02); EST Glomerular Filtration Rate 83 mL/min (>60); Est Glom Filt Rate - Afr Amer 101 mL/min (>60); Glucose 96 mg/dL (74-106); Potassium 3.4 mmol/L (3.5-5.1); Sodium Level 145 mmol/L (136-145)
== END ==
LOC: OLS.SWAL 05:00
PROVIDERS: PCP Family Medicine; Visit Provider Family Medicine
DX: I10 Essential (primary) hypertension (principal); E78.5 Hyperlipidemia, unspecified
CPT/HCPCS: 36415; 80048

== ENCOUNTER → 2024-08-14 | Outpatient (REF) | payer MEDICARE, SELFPAY ==
[2024-08-14 08:45] LABS: Anion Gap 7 (5-15); BUN 7 mg/dL (7-18); BUN/Creat Ratio 9.5 RATIO (10-20); Chloride 106 mmol/L (98-107); Creatinine, Serum 0.73 mg/dL (0.55-1.02); EST Glomerular Filtration Rate 84 mL/min (>60); Est Glom Filt Rate - Afr Amer 102 mL/min (>60); Glucose 87 mg/dL (74-106); Potassium 3.3 mmol/L (3.5-5.1); Sodium Level 140 mmol/L (136-145)
== END ==
LOC: OLS.SWAL 05:00
PROVIDERS: PCP Family Medicine
DX: I10 Essential (primary) hypertension (principal)
CPT/HCPCS: 36415; 80048

== ENCOUNTER → 2024-08-21 | Outpatient (REF) | payer MEDICARE, SELFPAY ==
[2024-08-21 10:54] LABS: Anion Gap 9 (5-15); BUN 8 mg/dL (7-18); BUN/Creat Ratio 8.7 RATIO (10-20); Calcium,Total 9.4 mg/dL (8.5-10.1); Chloride 108 mmol/L (98-107); Creatinine, Serum 0.92 mg/dL (0.55-1.02); EST Glomerular Filtration Rate 65 mL/min (>60); Est Glom Filt Rate - Afr Amer 78 mL/min (>60); Glucose 92 mg/dL (74-106); Potassium 3.8 mmol/L (3.5-5.1); Sodium Level 141 mmol/L (136-145)
== END ==
LOC: OLS.SWAL 05:00
PROVIDERS: PCP Family Medicine
DX: I10 Essential (primary) hypertension (principal)
CPT/HCPCS: 36415; 80048

== ENCOUNTER → 2024-09-20 | Outpatient (CLI) | payer MEDICARE, MEDICAID, SELFPAY ==
[2024-09-20 15:49] LABS: Absolute Lymphocyte Count 1.39 X10^3/uL (0.83-4.51); Absolute Neutrophil Count 3.9 X10^3/uL (2.0-7.7); Basophil# 0.03 X10^3/uL; Basophil% 0.5 % (0-1); Eosinophils% 1.6 % (0-5); Hematocrit 38.7 % (37-47); Lymphocyte # 1.39 X10^3/ul (0.83-4.51); Lymphocyte % 22.1 % (19-41); Mean Corp Hgb Conc 33.6 g/dL (32-36); Mean Corpuscular Hgb 33.3 pg (27.0-32.0); Mean Corpuscular Volume 99.2 fL (81-99); Mean Platelet Vol. 8.9 fl (6.2-12.0); Monocyte# 0.83 X10^3/uL; Monocyte% 13.2 % (0-10); NRBC Flagged by Analyzer 0 % (0-5); Neutrophil # 3.93 X10^3/uL (2.7-7.7); Neutrophil % 62.3 % (47-70); Platelet Count 245 K/mm3 (150-450); RBC Distribution Width CV 11.9 % (11.6-14.6); White Blood Count 6.3 K/mm3 (4.4-11.0)
[2024-09-20 16:17] LABS: ALB/GLOB Ratio 1.2 RATIO (0.9-2.4); AST(SGOT) 18 U/L (15-37); Alanine Aminotransfer ALT/SGPT 26 U/L (13-56); Albumin, Serum 3.5 g/dL (3.2-5.0); Alkaline Phosphatase 81 U/L (45-117); Anion Gap 4 (5-15); BUN 21 mg/dL (7-18); BUN/Creat Ratio 18.6 RATIO (10-20); Calcium,Total 9.2 mg/dL (8.5-10.1); Chloride 106 mmol/L (98-107); Creatinine, Serum 1.13 mg/dL (0.55-1.02); EST Glomerular Filtration Rate 51 mL/min (>60); Est Glom Filt Rate - Afr Amer 62 mL/min (>60); Globulin 2.9 g/dL (2.2-4.2); Glucose 104 mg/dL (74-106); Potassium 4.4 mmol/L (3.5-5.1); Protein, Total 6.4 g/dL (6.4-8.2); Sodium Level 137 mmol/L (136-145)
[2024-09-25 12:08] LABS: Albumin 3.4 g/dL (2.9-4.4); Alpha-1-Globulins 0.3 g/dL (0.0-0.4); Alpha-2-Globulins 0.7 g/dL (0.4-1.0); Gamma Globulin 0.5 g/dL (0.4-1.8); Immunoglobulin A 24 mg/dL (87-352); Immunoglobulin G 546 mg/dL (586-1602); Immunoglobulin M 57 mg/dL (26-217); PROEL- TOTAL PROTEIN 5.7 g/dL (6.0-8.5)
== END | disposition home or self-care (01) ==
LOC: LAB 15:08
PROVIDERS: PCP Family Medicine; Referring Provider Internal Medicine Gastroenterology; Visit Provider Internal Medicine Gastroenterology
DX: K31.7 Polyp of stomach and duodenum (principal); D64.9 Anemia, unspecified
CPT/HCPCS: 36415; 80053; 82784; 84165; 85025; 86334

== ENCOUNTER → 2024-09-25 | Outpatient (REF) | payer MEDICARE, SELFPAY ==
[2024-09-25 09:20] LABS: Hematocrit 40.6 % (37-47); Hemoglobin 12.9 g/dL (12.0-15.0); Mean Corp Hgb Conc 31.8 g/dL (32-36); Mean Corpuscular Hgb 32.7 pg (27.0-32.0); Mean Corpuscular Volume 102.8 fL (81-99); Platelet Count 224 K/mm3 (150-450); RBC Distribution Width CV 11.8 % (11.6-14.6); RBC Distribution Width SD 44.5 fl (35.1-43.9); Red Blood Count 3.95 M/mm3 (4.2-5.4); White Blood Count 5.1 K/mm3 (4.4-11.0)
[2024-09-25 09:30] LABS: Vitamin B12 370 pg/mL (211-911); Vitamin D,25 Hydroxy 50.6 ng/mL
[2024-09-25 09:53] LABS: ALB/GLOB Ratio 1.2 RATIO (0.9-2.4); AST(SGOT) 25 U/L (15-37); Alanine Aminotransfer ALT/SGPT 23 U/L (13-56); Albumin, Serum 3.3 g/dL (3.2-5.0); Alkaline Phosphatase 83 U/L (45-117); Anion Gap 5 (5-15); BUN 11 mg/dL (7-18); BUN/Creat Ratio 13.1 RATIO (10-20); Calcium,Total 9.3 mg/dL (8.5-10.1); Chloride 106 mmol/L (98-107); Cholesterol 176 mg/dL (200); Creatinine, Serum 0.84 mg/dL (0.55-1.02); EST Glomerular Filtration Rate 72 mL/min (>60); Est Glom Filt Rate - Afr Amer 87 mL/min (>60); Ferritin 61 ng/mL (8-252); Free T3 2.3 pg/mL (2.18-3.98); Globulin 2.8 g/dL (2.2-4.2); Glucose 86 mg/dL (74-106); High Density Lipoprotein 77 mg/dL; Potassium 4.2 mmol/L (3.5-5.1); Protein, Total 6.1 g/dL (6.4-8.2); Sodium Level 138 mmol/L (136-145); T4 Free Direct 1.35 ng/dL (0.76-1.46); Triglycerides 85 mg/dL; Very Low Density Lipoprotein 17 mg/dL (5-40)
== END ==
LOC: OLS.SWAL 05:00
PROVIDERS: PCP Family Medicine
DX: I10 Essential (primary) hypertension (principal); E03.9 Hypothyroidism, unspecified; E78.00 Pure hypercholesterolemia, unspecified
CPT/HCPCS: 36415; 80053; 80061; 82306; 82607; 82728; 84439; 84443; 84481; 85027

== ENCOUNTER → 2024-11-23 | Outpatient (CLI) | payer MEDICARE, MEDICAID, SELFPAY ==
--- NOTE | 2024-11-23 11:28 | NM_ITS ---
CLINICAL: 69-year-old female with history of chronic nausea and gastroesophageal reflux disease. SEMI-SOLID PHASE 99m Tc SULFUR COLLOID GASTRIC EMPTYING STUDY COMPARISON: None available FINDINGS: The patient was administered 1.1 mCi of 99m Tc sulfur colloid with oatmeal and consumed per os. Image acquisitions in the anterior-posterior projections were obtained for 60 minutes. There is prompt visualization of the stomach. There is no gastroesophageal reflux identified. First order kinetics are maintained throughout the duration of the acquisitions. The T ? linear fit was calculated to be 69.46 minutes, (Normal: 12-56 minutes). NM/Gastric Emptying Study IMPRESSION: 1. ABNORMAL 99m Tc sulfur colloid semi-solid phase (oatmeal) gastric emptying imaging examination. A. There is delayed semi-solid phase gastric emptying compared to normal controls with maintained first order kinetics throughout all components of the examination. (Omar et al, J Nucl Med Tech 38: 186, 2010). Electronically Signed: [place] DO at 6:51 EST ,
== END | disposition home or self-care (01) ==
LOC: NM 11:27
PROVIDERS: PCP Family Medicine; Referring Provider Internal Medicine Gastroenterology; Visit Provider Internal Medicine Gastroenterology
DX: K21.9 Gastro-esophageal reflux disease without esophagitis (principal); R11.0 Nausea
CPT/HCPCS: 78264; A9503

== ENCOUNTER 2024-12-08 10:09 | Emergency (ER) | payer MEDICARE, MEDICAID, SELFPAY ==
[2024-12-08 10:10] VITALS: BP 187/121; PULSE 71; RESP 16; TEMP 36.5; O2SAT 96
[2024-12-08 10:36] VITALS: BMI 33.6
--- NOTE | 2024-12-08 10:43 | EX.ED.DYSGE1 ---
HPI History of Present Illness Chief Complaint: Hypertension Informant: patient Onset/Context/Timing Onset: Month(s) (1) Context: Gradual Onset Timing: Continuous Quality: Aching Location: Neck, back Worsened by: Nothing Relieved by: Nothing Narrative Narrative: Patient presents with elevated blood pressure that has been getting worse over the past month. Patient was seen by her practice office associate today who noted her blood pressure was elevated to 210/98. Patient was then referred to the emergency department. Patient denies any chest pain. Patient denies any shortness of breath or cough. Patient does admit to some pain in her neck and back but states she has a history of fibromyalgia and this is chronic for her. The patient does admit to a mild headache. Patient states that she did not take her blood pressure medicine this morning. [facility] Medical History Tardive dyskinesia Anxiety and depression CKD (chronic kidney disease), stage II Lives in assisted living facility Scoliosis Left rotator cuff tear Bipolar 1 disorder, depressed Primary osteoarthritis, left shoulder Left rotator cuff tear Peripheral vascular disease Kyphosis GERD (gastroesophageal reflux disease) Migraine Asthma Irritable bowel Hypercholesteremia Anemia Hyperlipidemia Hypertension Bipolar 1 disorder Fibromyalgia Hypothyroid Cerebral palsy Home Medications ?Medication ?Instructions ?Recorded ?Last Taken ?Type fluticasone propionate 50 2 spray NASAL DAILY congestion 01/03/16 03/24/21 History mcg/actuation nasal spray,suspension aspirin 81 mg chewable tablet 81 mg PO DAILY heart health 12/16/17 03/24/21 History multivitamin 1 ea PO DAILY supplement 12/02/18 03/24/21 History polyethylene glycol 3350 17 gram 17 g PO DAILY bowels 06/22/19 03/22/21 History oral powder packet diclofenac sodium 1 % topical gel 1 applic topical Q6H PRN PRN Pain 04/16/20 03/24/21 History promethazine 25 mg tablet 25 mg PO Q6H PRN PRN Nausea 01/07/21 03/23/21 History clopidogrel 75 mg tablet (Plavix) 75 mg PO DAILY antiplatelet 02/15/22 03/27/24 History calcium carb-ergocalciferol (vit 1 tab PO BID supplement 04/16/22 Unknown History D2) 500 mg (1,250 mg)-200 unit tablet ammonium lactate 12 % topical cream 1 applic topical PRN skin 06/17/22 Unknown History calcium polycarbophil 625 mg 625 mg PO 4X/DAY bowels 06/17/22 Unknown History tablet (Fiber Laxative (calcium polycarbophil)) nystatin 100,000 unit/gram topical 1 applic topical DAILY PRN SKIN 06/17/22 Unknown History powder ferrous sulfate 325 mg (65 mg 325 mg PO DAILY supplement 09/07/22 Unknown History iron) tablet rabeprazole 20 mg tablet,delayed 20 mg PO BID GI health #60 tabs 11/24/22 03/30/24 Rx release cholecalciferol (vitamin D3) 50 50 mcg PO DAILY supplement 12/03/22 Unknown History mcg (2,000 unit) capsule triamcinolone acetonide 0.1 % 1 applic topical DAILY PRN skin 12/03/22 Unknown History topical cream gabapentin 600 mg tablet 400 mg PO TID pain/nerves 05/31/23 03/30/24 History rosuvastatin 5 mg tablet 5 mg PO QHS cholesterol 05/31/23 Unknown History cetirizine 10 mg capsule (Zyrtec) 10 mg PO DAILY PRN allergy symptoms 06/16/23 Unknown History aluminum-magnesium hydroxide 200 15 ml PO Q4H PRN dyspepsia 01/24/24 Unknown History mg-200 mg/5 mL oral suspension lamotrigine 100 mg tablet 100 mg PO QHS seizures 01/24/24 03/30/24 History carboxymethylcellulose sodium 1 % 1 drp ophthalmic (eye) BID eye 03/17/24 Unknown History eye drops (Artificial Tears dryness (carboxymethylcellulose)) magnesium oxide 400 mg PO DAILY supplement 03/21/24 03/29/24 History albuterol sulfate 2.5 mg/3 mL 2.5 mg inhalation BID breathing 07/21/24 Unknown History (0.083 %) solution for nebulization tizanidine 2 mg tablet 6 mg PO QHS muscle relaxer 07/21/24 Unknown History tizanidine 4 mg tablet 4 mg PO DAILY muscle relaxer 07/21/24 Unknown History valbenazine 40 mg capsule 40 mg PO DAILY tardive dyskinesia 07/21/24 Unknown History (Ingrezza) hydroxyzine pamoate 25 mg capsule 25 mg PO BID anxiety #60 caps 08/08/24 Unknown Rx potassium chloride 10 mEq 10 meq PO BID 11/08/24 Unknown History tablet,extended release docusate sodium 100 mg capsule 100 mg PO QDAY PRN 09/22/24 Unknown History (Colace) acetaminophen 500 mg tablet 1,000 mg PO BID 12/08/24 Unknown History albuterol sulfate 90 mcg/actuation 2 puff inhalation Q6H PRN 12/08/24 Unknown History aerosol inhaler budesonide 0.25 mg/2 mL suspension 500 mg inhalation BID breathing 12/08/24 Unknown History for nebulization cyanocobalamin (vitamin B-12) 1,000 mcg IM QMONTH 12/08/24 Unknown History 1,000 mcg/mL injection solution hydrocodone-acetaminophen 5-325mg 1 tab PO TID 12/08/24 Unknown History 5mg-325mg hydrocortisone 2.5 % topical cream 1 applic topical TID PRN 12/08/24 Unknown History ibandronate 150 mg tablet 150 mg PO QMONTH 12/08/24 Unknown History lactase 3,000 unit tablet (Dairy 15,000 unit PO TIDCM PRN lactose 12/08/24 Unknown History Relief) intolerance lamotrigine 200 mg tablet 200 mg PO BID 12/08/24 Unknown History levothyroxine 75 mcg tablet mcg PO DAILY 12/08/24 Unknown History (Synthroid) losartan 25 mg tablet 25 mg PO QDAY blood pressure 12/08/24 Unknown History meclizine 12.5 mg tablet 12.5 mg PO QDAY PRN dizziness 12/08/24 Unknown History vit C 250 mg-vit E 90 mg-zinc 40 1 tab PO BID 12/08/24 Unknown History mg-copper 1 [id number] capsule (PreserVision AREDS-2) Allergy/AdvReac Type Severity Reaction Status Date / Time lithium Allergy Mild Vomiting Verified 12/08/24 10:12 propantheline Allergy Unknown unknown Verified 12/08/24 10:12 ziprasidone (From Geodon) Allergy Unknown unknown Verified 12/08/24 10:12 aspartame Allergy Itching Verified 12/08/24 10:12 carrot Allergy Food Verified 12/08/24 10:12 Allergy ciclesonide (From [place]) Allergy Shortness Verified 12/08/24 10:12 of breath diphenhydramine (From Allergy Other Verified 12/08/24 10:12 Benadryl) diphenhydramine HCl (From Allergy Rash Verified 12/08/24 10:12 Benadryl) imipramine Allergy Other Verified 12/08/24 10:12 levofloxacin (From Levaquin) Allergy Itching Verified 12/08/24 10:12 onabotulinumtoxinA (From Allergy Itching Verified 12/08/24 10:12 Botox) Penicillins Allergy Rash Verified 12/08/24 10:12 Seasonal Allergies: Uncoded Allergy NEEDS Verified 12/08/24 10:12 (environmental) FOLLOW-UP Sulfa (Sulfonamide Allergy NEEDS Verified 12/08/24 10:12 Antibiotics) FOLLOW-UP sulfamethoxazole (From Allergy NEEDS Verified 12/08/24 10:12 Bactrim) FOLLOW-UP topiramate (From Topamax) Allergy Other Verified 12/08/24 10:12 trimethoprim (From Bactrim) Allergy NEEDS Verified 12/08/24 10:12 FOLLOW-UP baclofen AdvReac Severe vomitting Verified 12/08/24 10:12 erythromycin base AdvReac Severe chest pain Verified 12/08/24 10:12 fentanyl AdvReac Severe Vomiting Verified 12/08/24 10:12 lubiprostone (From Amitiza) AdvReac Severe Vomiting Verified 12/08/24 10:12 ondansetron (From Zofran) AdvReac Severe Vomiting Verified 12/08/24 10:12 oxycodone AdvReac Severe vomitting Verified 12/08/24 10:12 oxymorphone AdvReac Severe ABD pain Verified 12/08/24 10:12 and vomiting pregabalin (From Lyrica) AdvReac Severe eyes would Verified 12/08/24 10:12 stay closed codeine AdvReac nausea Verified 12/08/24 10:12 lurasidone AdvReac Pain in Verified 12/08/24 10:12 joints sertraline (From Zoloft) AdvReac serotoin Verified 12/08/24 10:12 syndrome valbenazine (From Ingrezza) AdvReac Other Verified 12/08/24 10:12 Family History Sister CVA (cerebral vascular accident) Afib Heart disease Liver disease Brother Colon cancer Father Emphysema lung Surgical History Hx of cholecystectomy History of appendectomy History of carpal tunnel release History of total right knee replacement History of total left knee replacement Social History adopted: No housing: assisted living facility current occupational status: disabled pets and animals: No Smoking Status: Never smoker alcohol intake: never substance use type: does not use ROS ROS ED Constitutional Constitutional ED: Denies chills or fever(s) Eyes Eyes: Denies blurry vision or change in vision ENT ENT ED: Denies rhinorrhea or sore throat Cardiovascular Cardiovascular: Denies chest pain or palpitations Respiratory/Chest Respiratory/Chest: Denies cough or dyspnea Gastrointestinal Gastrointestinal: Denies nausea or vomiting Genitourinary Genitourinary ED: Denies dysuria or hematuria Musculoskeletal Musculoskeletal: Reports back pain and neck pain Integumentary Denies abscess or rash Neurologic Neurologic: Reports headache(s); Denies weakness Allergic/Immunologic Allergic/Immunologic ED: Denies mouth swelling or urticaria EXAM Physical Exam Const Vital Signs: 12/08/24 10:10 12/08/24 11:36 12/08/24 12:09 Temperature 97.7 F L Temperature Source Oral Pulse Rate 71 67 Respiratory Rate 16 18 Respiratory Effort Normal Non-Labored Respiratory Pattern Normal Blood Pressure 187/121 H 212/77 H Blood Pressure Mean 143 122 Pulse Ox 96 95 Oxygen Delivery Method Room Air Room Air 12/08/24 13:30 12/08/24 15:00 Temperature Temperature Source Pulse Rate 61 Respiratory Rate 17 Respiratory Effort Respiratory Pattern Blood Pressure 168/77 H 196/73 H Blood Pressure Mean 107 114 Pulse Ox 94 Oxygen Delivery Method Room Air Positive well nourished and well developed General Appearance ED: well developed and NAD HEENT Reports moist mucous membranes Neck supple and no JVD Resp normal respiratory effort and clear to auscultation bilaterally Cardio regular rate and regular rhythm GI non-tender and non-distended Palpation: soft Neuro oriented x3, CN's II-XII intact bilaterally and no sensory deficits noted Sensorium / Orientation: alert Psych mental status grossly normal MDM MDM MDM Narrative Medical decision making narrative: Differential diagnosis includes hypertensive urgency, hypertensive emergency, pneumonia, electrolyte abnormality, kidney injury, and uncontrolled hypertension. EKG will be obtained to assess for cardiac dysrhythmia and cardiac ischemia. Chest x-ray will be obtained to assess for pneumonia, congestive heart failure, and widened mediastinum. CBC will be obtained to assess for leukocytosis and anemia. Basic metabolic profile will be obtained to assess for electrolyte abnormality and renal function. High-sensitivity troponin will be obtained to assess for cardiac ischemia. COVID-19, influenza, and RSV PCR will be obtained to assess for viral illness. Urinalysis will be obtained to assess for urinary tract infection and hematuria. Lab Data Attestation: I reviewed the patient's lab results. Lab results narrative: CBC was reviewed and was within normal limits. Basic metabolic profile was reviewed and was within normal limits. High-sensitivity troponin was reviewed and was normal at 9. Urinalysis was reviewed. There is no evidence of urinary tract infection or hematuria. Labs: Laboratory Results - last 24 hr 12/08/24 10:45 WBC 5.4 RBC 3.99 L Hgb 13.5 Hct 39.5 MCV 99.0 MCH 33.8 H MCHC 34.2 RDW Std Deviation 42.3 RDW Coeff of [place] 11.6 Plt Count 222 MPV 8.8 Immature Gran % (Auto) 0.600 Neut % (Auto) 59.3 Lymph % (Auto) 22.3 [place] % (Auto) 12.6 H Eos % (Auto) 4.6 Baso % (Auto) 0.6 Absolute Neuts (auto) 3.2 Absolute Lymphs (auto) 1.20 Nucleated RBC % 0 Sodium 141 Potassium 3.6 Chloride 104 Carbon Dioxide 29.0 Anion Gap 8 BUN 10 Creatinine 0.88 Estim Creat Clear Calc 62.15 Est GFR (MDRD) Af Amer 83 Est GFR (MDRD) Non-Af 68 BUN/Creatinine Ratio 11.4 Glucose 88 Calcium 9.3 Troponin I High Sens 9 Urine Color Straw Urine Clarity Clear Urine pH 6.5 Ur Specific [place] 1.010 Urine Protein 15 H Urine Glucose (UA) Normal Urine Ketones Negative Urine Occult Blood Negative Urine Nitrite Negative Urine Bilirubin Negative Urine Urobilinogen Normal Ur Leukocyte Esterase 25 H Urine RBC 0 SEEN Urine WBC 0-5 SEEN Ur Squamous Epith Cells 0-5 SEEN Urine Bacteria 1+ Urine Mucus 0 SEEN Radiography Chest X-Ray - ED: 2 View, Read by ED Physician, Read by Radiologist, No Acute Disease and Cardiomegaly Diagnostic Testing: Clinical Impression(s) from Imaging Studies Chest X-Ray 12/08/24 11:22 IMPRESSION: Cardiomegaly with mild congestion. Reading Location: [facility] and lateral chest x-ray was obtained. There are 2 views. On my independent interpretation, lung martinez show mild congestion. There is cardiomegaly. Bony thorax is normal. Radiologist also interpreted the x-ray and agrees. EKG Initial EKG: Attestation: I personally reviewed and interpreted this EKG as follows: Interpretation: Sinus Rhythm (70) and No Acute Injury Pattern Comments: EKG was obtained. On my independent interpretation, it showed a normal sinus rhythm with a rate of 70. OR interval, QRS interval, and QTc intervals were all normal. [place] was normal. There are no acute ST or T wave changes. Prior EKG tracings: available for review Prior: Unchanged (07/21/2024) Treatment and Re-Evaluation :: Patient was given her home blood pressure medication and her blood pressure started to improve. However, it went back up to greater than 200 systolic. Because of this, patient was given a dose of clonidine. Patient's blood pressure improved to 166/77. Patient was instructed to follow-up with her primary care physician in 3 to 5 days for further management of her blood pressure. Patient was instructed to return if worse in any way. Patient understood and was agreeable with this plan. All questions were answered. Discharge Plan Triage Chief Complaint: Hypertension ED Provider: Roshan Peñaloza Dx/Rx/DC Orders Clinical Impression: Hypertension, Cerebral palsy Instructions: ED Hypertension, Established Prescriptions: No Action aspirin 81 mg tablet,chewable 81 mg PO DAILY ammonium lactate 12 % cream 1 applic topical PRN calcium polycarbophil [Fiber Laxative (ca polycarbo)] 625 mg tablet 625 mg PO 4X/DAY nystatin 100,000 unit/gram powder 1 applic topical DAILY PRN (Reason: SKIN) losartan 25 mg tablet 25 mg PO QDAY rabeprazole 20 mg tablet,delayed release (DR/EC) 20 mg PO BID Qty: 60 12RF triamcinolone acetonide 0.1 % cream 1 applic topical DAILY PRN (Reason: skin) cholecalciferol (vitamin D3) 50 mcg (2,000 unit) capsule 50 mcg PO DAILY rosuvastatin 5 mg tablet 5 mg PO QHS gabapentin 600 mg tablet 400 mg PO TID budesonide 0.25 mg/2 mL suspension for nebulization 500 mg inhalation BID Patient Comments: paperwork says 500mg Zyrtec 10 mg capsule 10 mg PO DAILY PRN (Reason: allergy symptoms) Artificial Tears (cmc) 1 % drops 1 drp ophthalmic (eye) BID hydroxyzine pamoate 25 mg capsule 25 mg PO BID Qty: 60 2RF ibandronate 150 mg tablet 150 mg PO QMONTH potassium chloride 10 mEq tablet extended release 10 meq PO BID albuterol sulfate 90 mcg/actuation HFA aerosol inhaler 2 puff inhalation Q6H PRN lamotrigine 200 mg tablet 200 mg PO BID levothyroxine [Synthroid] 75 mcg tablet PO DAILY hydrocortisone 2.5 % cream 1 applic topical TID PRN hydrocodone-acetaminophen 5-325 mg tablet 1 tab PO TID acetaminophen 500 mg tablet 1,000 mg PO BID cyanocobalamin (vitamin B-12) 1,000 mcg/mL solution 1,000 mcg IM QMONTH PreserVision AREDS-2 250-90-40-1 mg capsule 1 tab PO BID fluticasone propionate 1 SPRAY spray,suspension 2 spray NASAL DAILY multivitamin 1 EACH tablet 1 ea PO DAILY polyethylene glycol 3350 17 GM packet 17 g PO DAILY diclofenac sodium 1 APPLIC gel 1 applic topical Q6H PRN PRN (Reason: Pain) promethazine 25 MG tablet 25 mg PO Q6H PRN PRN (Reason: Nausea) ferrous sulfate 325 mg (65 mg iron) tablet 325 mg PO DAILY clopidogrel [Plavix] 75 mg Tablet 75 mg PO DAILY calcium carbonate-vitamin D2 500 mg(1,250mg) -200 unit Tablet 1 tab PO BID aluminum-magnesium hydroxide 200-200 mg/5 mL suspension 15 ml PO Q4H PRN (Reason: dyspepsia) lamotrigine 100 mg tablet 100 mg PO QHS Rx Instructions: take with 200mg tab magnesium oxide 400 mg magnesium capsule 400 mg PO DAILY albuterol sulfate 2.5 mg /3 mL (0.083 %) solution for nebulization 2.5 mg inhalation BID Ingrezza 40 mg capsule 40 mg PO DAILY tizanidine 4 mg tablet 4 mg PO DAILY Patient Comments: [facility] tizanidine 2 mg tablet 6 mg PO QHS lactase [Dairy Relief] 3,000 unit tablet 15,000 unit PO TIDCM PRN (Reason: lactose intolerance) Rx Instructions: 5-10 TABS meclizine 12.5 mg tablet 12.5 mg PO QDAY PRN (Reason: dizziness) docusate sodium [Colace] 100 mg capsule 100 mg PO QDAY PRN Primary Care Provider: Alex Self Referrals: Alex Self MD [Primary Care Provider] - 3-5 Days Print Language: Guamanian Disposition Disposition: Home, Self Care
--- NOTE | 2024-12-08 11:22 | EKG12_ITS ---
Test Reason : Blood Pressure : */* mmHG Vent. Rate : 70 BPM Atrial Rate : 70 BPM P-R Int : 140 ms QRS Dur : 74 ms QT Int : 422 ms P-R-T Axes : 10 52 64 degrees QTcB Int : 455 ms Normal sinus rhythm Normal ECG Confirmed by YASMANY QUESADA, IRIS ([id number]), editor managing newspaper MARGARITO MCCARTNEY ([id number]) on 12/11/2024 7:26:52 AM Referred By: EVARISTO Confirmed By: IRIS JADE MD
--- NOTE | 2024-12-08 11:22 | RAD_ITS ---
EXAM: XR Chest, 2 Views CLINICAL INDICATION: TECHNIQUE: Frontal and lateral views of the chest. COMPARISON: No relevant prior studies available. FINDINGS: LUNGS AND PLEURAL SPACES: See below. HEART: Cardiomegaly with mild congestion. MEDIASTINUM: Unremarkable. Normal mediastinal contour. BONES/JOINTS: Unremarkable. No acute fracture. RAD/Chest PA and Lateral IMPRESSION: Cardiomegaly with mild congestion. Reading Location[facility]
[2024-12-08 11:36] LABS: Absolute Neutrophil Count 3.2 X10^3/uL (2.0-7.7); Basophil# 0.03 X10^3/uL; Basophil% 0.6 % (0-1); Eosinophil# 0.25 X10^3/uL; Eosinophils% 4.6 % (0-5); Hematocrit 39.5 % (37-47); Hemoglobin 13.5 g/dL (12.0-15.0); Lymphocyte % 22.3 % (19-41); Mean Corp Hgb Conc 34.2 g/dL (32-36); Mean Corpuscular Hgb 33.8 pg (27.0-32.0); Mean Platelet Vol. 8.8 fl (6.2-12.0); Monocyte# 0.68 X10^3/uL; Monocyte% 12.6 % (0-10); NRBC Flagged by Analyzer 0 % (0-5); Neutrophil # 3.19 X10^3/uL (2.7-7.7); Neutrophil % 59.3 % (47-70); Platelet Count 222 K/mm3 (150-450); RBC Distribution Width CV 11.6 % (11.6-14.6); RBC Distribution Width SD 42.3 fl (35.1-43.9); Red Blood Count 3.99 M/mm3 (4.2-5.4); White Blood Count 5.4 K/mm3 (4.4-11.0)
[2024-12-08 11:54] LABS: Red Blood Cells-Urine 0 SEEN /hpf (0-5)
[2024-12-08 12:00] LABS: Color, Urine Straw (Yellow); Glucose, Dipstick Normal (Normal); Ketone-Dipstick Negative (Negative); Leukocyte Esterase-Dipstick 25 /ul (Negative); Nitrite-Dipstick Negative (Negative); Occult Blood-Urine Negative /ul (Negative); Protein-Dipstick 15 mg/dl (Negative); Urine Bilirubin Dipstick Negative (Negative); Urine Clarity Clear (Clear); Urine Urobilinogen Normal (Normal); Urine pH 6.5 (5.0 - 8.0)
[2024-12-08 12:04] LABS: Anion Gap 8 (5-15); BUN 10 mg/dL (7-18); BUN/Creat Ratio 11.4 RATIO (10-20); Calcium,Total 9.3 mg/dL (8.5-10.1); Chloride 104 mmol/L (98-107); Creatinine, Serum 0.88 mg/dL (0.55-1.02); EST Glomerular Filtration Rate 68 mL/min (>60); Est Glom Filt Rate - Afr Amer 83 mL/min (>60); Estimated Creatinine Clearance 62.15 ml/min; Glucose 88 mg/dL (74-106); Potassium 3.6 mmol/L (3.5-5.1); Sodium Level 141 mmol/L (136-145); Troponin-I HS 9 pg/mL (3.0-54.0)
[2024-12-08 12:09] VITALS: BP 212/77; PULSE 67; RESP 18; O2SAT 95
[2024-12-08 12:39] LABS: Bacteria 1+ /hpf (None Seen); Squamous Epithelial Cells - UA 0-5 SEEN /hpf (5-10); White Blood Cells 0-5 SEEN /hpf (0-5)
[2024-12-08 12:40] LABS: Mucous, Urine 0 SEEN /hpf (<or=2+)
[2024-12-08 13:30] VITALS: BP 168/77
[2024-12-08] MEDS: cloNIDine HCl 0.2 MG Tablet PO (14:40)
[2024-12-08 15:00] VITALS: BP 196/73; PULSE 61; RESP 17; O2SAT 94
[2024-12-08 15:42] VITALS: BP 161/78; PULSE 56; RESP 16; TEMP 36.4; O2SAT 94
== END 2024-12-08 15:46 | disposition home or self-care (01) ==
PROVIDERS: Emergency Provider Emergency Medicine; PCP Family Medicine; Visit Provider Emergency Medicine
DX: I10 Essential (primary) hypertension (principal); F31.9 Bipolar disorder, unspecified; G80.9 Cerebral palsy, unspecified; F41.9 Anxiety disorder, unspecified; K21.9 Gastro-esophageal reflux disease without esophagitis; E03.9 Hypothyroidism, unspecified; D64.9 Anemia, unspecified; E78.00 Pure hypercholesterolemia, unspecified; M41.9 Scoliosis, unspecified; M79.7 Fibromyalgia; Z88.2 Allergy status to sulfonamides; Z88.1 Allergy status to other antibiotic agents; Z88.0 Allergy status to penicillin; Z79.82 Long term (current) use of aspirin; Z79.899 Other long term (current) drug therapy; Z79.02 Long term (current) use of antithrombotics/antiplatelets; Z79.890 Hormone replacement therapy
CPT/HCPCS: 71046; 80048; 81001; 84484; 85025; 87631; 93005; 99284; A4216

== ENCOUNTER → 2024-12-15 05:00 | Outpatient (REF) | payer MEDICARE, SELFPAY ==
[2024-12-15 08:44] LABS: Hematocrit 35.8 % (37-47); Hemoglobin 12.2 g/dL (12.0-15.0); Mean Corp Hgb Conc 34.1 g/dL (32-36); Mean Corpuscular Hgb 33.1 pg (27.0-32.0); Mean Platelet Vol. 8.8 fl (6.2-12.0); Platelet Count 203 K/mm3 (150-450); RBC Distribution Width CV 11.5 % (11.6-14.6); RBC Distribution Width SD 40.7 fl (35.1-43.9); Red Blood Count 3.69 M/mm3 (4.2-5.4); White Blood Count 4.7 K/mm3 (4.4-11.0)
[2024-12-15 08:53] LABS: Scan Indicated on CBC? Y/N NO
[2024-12-15 09:09] LABS: Vitamin B12 303 pg/mL (211-911); Vitamin D,25 Hydroxy 40.7 ng/mL
[2024-12-15 09:20] LABS: ALB/GLOB Ratio 1.1 RATIO (0.9-2.4); AST(SGOT) 18 U/L (15-37); Alanine Aminotransfer ALT/SGPT 16 U/L (13-56); Albumin, Serum 3.2 g/dL (3.2-5.0); Alkaline Phosphatase 85 U/L (45-117); Anion Gap 7 (5-15); BUN 11 mg/dL (7-18); BUN/Creat Ratio 13.8 RATIO (10-20); Calcium,Total 9.2 mg/dL (8.5-10.1); Chloride 104 mmol/L (98-107); Cholesterol 165 mg/dL (200); EST Glomerular Filtration Rate 76 mL/min (>60); Est Glom Filt Rate - Afr Amer 92 mL/min (>60); Ferritin 56 ng/mL (8-252); Free T3 2.5 pg/mL (2.18-3.98); Globulin 2.8 g/dL (2.2-4.2); Glucose 80 mg/dL (74-106); High Density Lipoprotein 80 mg/dL; Sodium Level 138 mmol/L (136-145); T4 Free Direct 1.43 ng/dL (0.76-1.46); Triglycerides 40 mg/dL; Very Low Density Lipoprotein 8 mg/dL (5-40)
== END ==
LOC: OLS.SWAL 05:00
PROVIDERS: PCP Family Medicine; Visit Provider Family Medicine
DX: I10 Essential (primary) hypertension (principal); E03.9 Hypothyroidism, unspecified; E78.00 Pure hypercholesterolemia, unspecified; Z86.2 Personal history of diseases of the blood and blood-forming organs and certain disorders involving the immune mechanism
CPT/HCPCS: 36415; 80053; 80061; 82306; 82607; 82728; 84439; 84443; 84481; 85027

== ENCOUNTER → 2024-12-29 | Outpatient (CLI) | payer MEDICARE, MEDICAID, SELFPAY | END | disposition home or self-care (01) | LOC: PSN 12:37 | PROVIDERS: PCP Family Medicine; Referring Provider Nurse Practitioner Family; Visit Provider Nurse Practitioner Family | DX: R05.3 Chronic cough (principal) | CPT/HCPCS: 94060; 94726; 94729 ==

== ENCOUNTER → 2025-01-02 | Outpatient (CLI) | payer MEDICARE, MEDICAID, SELFPAY ==
[2025-01-02 13:13] VITALS: PULSE 69; PULSE 70; PULSE 71; PULSE 72; PULSE 75; PULSE 77; PULSE 78; O2SAT 96; O2SAT 97; O2SAT 98
--- NOTE | 2025-01-02 13:19 | CPS ---
PATIENT USED ROLLATOR FOR WALK TESTING. SHE TOOK A REST BREAK FROM 1 MIN 30 SEC UNTIL 3 MIN 5 SEC FOR HIP PAIN AND INCREASED WOB. SHE SLOWED HER PACE ONCE SHE BEGAN WALKING AGAIN AND DID NOT TAKE ANY MORE REST PERIODS DURING TESTING. NO OXYGEN REQUIRED FOR TESTING.
--- NOTE | 2025-01-05 13:35 | PCM.PSN.6M ---
PSN 6 Minute Walk Test 6 Minute Walk Test 6 Minute Walk Test: 6 Minute Walk Test PSN:6-Minute Walk Test Start: 01/02/25 13:12 Freq: Status: Active Protocol: [id number].6MINW Document 01/02/25 13:13 [facility] (Rec: 01/02/25 13:21 [facility] [id number]) 6 Minute Walk Test Date Performed 01/02/25 Time Performed 12:30 Height 5 ft Weight: 181 lb Weight in Pounds 181.[address]: Lilia Hale Assistive device Walker used: Pre-test Oxygen Delivery Room Air Method Pulse Ox (%) 98 Pulse Rate (60-100 69 beats/min) Dyspnea Demetria Scale ( 1 0-10) 1st minute Oxygen Delivery Room Air Method Pulse Ox (%) 96 Pulse Rate (60-100 71 beats/min) Dyspnea Demetria Scale ( 3 0-10) Number of Rests 1 Taken Reported Symptoms Increased Work of Breathing 2nd minute Oxygen Delivery Room Air Method Pulse Ox (%) 97 Pulse Rate (60-100 71 beats/min) Dyspnea Demetria Scale ( 2 0-10) Number of Rests 1 Taken Reported Symptoms Increased Work of Breathing 3rd minute Oxygen Delivery Room Air Method Pulse Ox (%) 98 Pulse Rate (60-100 72 beats/min) Dyspnea Demetria Scale ( 2 0-10) Number of Rests 1 Taken Reported Symptoms Increased Work of Breathing 4th minute Oxygen Delivery Room Air Method Pulse Ox (%) 97 Pulse Rate (60-100 75 beats/min) Dyspnea Demetria Scale ( 2 0-10) Reported Symptoms Increased Work of Breathing 5th minute Oxygen Delivery Room Air Method Pulse Ox (%) 98 Pulse Rate (60-100 78 beats/min) Dyspnea Demetria Scale ( 3 0-10) Number of Rests 0 Taken Reported Symptoms Increased Work of Breathing 6th minute Oxygen Delivery Room Air Method Pulse Ox (%) 97 Pulse Rate (60-100 77 beats/min) Dyspnea Demetria Scale ( 3 0-10) Number of Rests 0 Taken Reported Symptoms Increased Work of Breathing Post-test Oxygen Delivery Room Air Method Pulse Ox (%) 98 Pulse Rate (60-100 70 beats/min) Dyspnea Demetria Scale ( 1 0-10) Full Laps Walked 5 Partial Lap, Number 42 of Tiles Walked Total Distance 337 Walked (ft) 01/02/25 13:19 Cardiopulmonary Services by Lenka Pelayo PATIENT USED ROLLATOR FOR WALK TESTING. SHE TOOK A REST BREAK FROM 1 MIN 30 SEC UNTIL 3 MIN 5 SEC FOR HIP PAIN AND INCREASED WOB. SHE SLOWED HER PACE ONCE SHE BEGAN WALKING AGAIN AND DID NOT TAKE ANY MORE REST PERIODS DURING TESTING. NO OXYGEN REQUIRED FOR TESTING. Initialized on 01/02/25 13:19 - END OF NOTE Interpretation Interpretation: The patient ambulated 337 feet over the course of 6 minutes beginning on room air with use of a walker. Pretesting oxygen saturation was noted to be 98% on room air. With ambulation, the lucas oxygen saturation was 96%. Although there was evidence of impaired walk distance, there was no significant exertional oxygen desaturation. Recommendations Recommendations: There is no indication for the use of supplemental oxygen at this time.
== END | disposition home or self-care (01) ==
LOC: PSN 12:33
PROVIDERS: PCP Family Medicine; Referring Provider Nurse Practitioner Family; Visit Provider Nurse Practitioner Family
DX: R05.3 Chronic cough (principal)
CPT/HCPCS: 94618

== ENCOUNTER → 2025-03-06 | Outpatient (CLI) | payer MEDICARE, MEDICAID, SELFPAY ==
--- NOTE | 2025-03-06 09:26 | NM_ITS ---
PROCEDURE: GASTRIC EMPTYING STUDY - 4 HR 03/06/2025 REASON FOR EXAM: GASTROPARESIS COMPARISON: Gastric emptying study of 11/23/2024 TECHNIQUE: The patient ingested a standard meal of cooked egg whites mixed with 2 eggs, toasted white bread, to pats of butter, and 6 oz water. There was no vomiting postprandially. Anterior and posterior planar images of the upper abdomen were obtained for 1 minute immediately following the meal at 1h, 2h and 4h if more than 10% of the activity persisted within the stomach. Regions of interest were drawn, and a geometric mean was used to calculate a [id number]. Medications taken in the past 24 hours that may affect gastric emptying: None RADIOPHARMACEUTICAL: 1.2 mCi technetium 99 M sulfur colloid, orally with solid food. FINDINGS: Gastroesophageal reflux to the distal esophagus was noted on immediate postprandial images. Linear fit gastric emptying half-time: 172 minutes. Raw data gastric emptying half-time 122.2 minutes. Percent activity remaining in stomach: 1 hour 54 % (normal 37-90%) 2 hours: 50 % (normal 30-60%) 4 hours: 32 % (normal 0-10%) NM/Gastric Emptying Study - 4 HR IMPRESSION: 1. Delayed gastric emptying, with 4 hour gastric emptying of only 68%. 2. Gastroesophageal reflux to the distal esophagus was noted on immediate postp randial images. Reading Location: [place] [id number]
== END | disposition home or self-care (01) ==
LOC: NM 09:26
PROVIDERS: PCP Family Medicine; Referring Provider Internal Medicine Gastroenterology; Visit Provider Internal Medicine Gastroenterology
DX: K31.84 Gastroparesis (principal)
CPT/HCPCS: 78264; A9541

== ENCOUNTER → 2025-03-14 | Outpatient (REF) | payer MEDICARE, MEDICAID, SELFPAY ==
[2025-03-14 09:51] LABS: Hematocrit 38.3 % (37-47); Hemoglobin 12.6 g/dL (12.0-15.0); Mean Corp Hgb Conc 32.9 g/dL (32-36); Mean Corpuscular Hgb 32.1 pg (27.0-32.0); Mean Corpuscular Volume 97.7 fL (81-99); Mean Platelet Vol. 8.8 fl (6.2-12.0); Platelet Count 183 K/mm3 (150-450); RBC Distribution Width CV 12.5 % (11.6-14.6); Red Blood Count 3.92 M/mm3 (4.2-5.4); White Blood Count 4.6 K/mm3 (4.4-11.0)
[2025-03-14 10:33] LABS: ALB/GLOB Ratio 1.8 RATIO (0.9-2.4); AST(SGOT) 24 U/L (<=31); Alanine Aminotransfer ALT/SGPT 21 U/L (<=34); Albumin, Serum 3.9 g/dL (3.4-4.8); Alkaline Phosphatase 118 U/L (35-104); Anion Gap 9 (5-15); BUN 13 mg/dL (4-19); Calcium,Total 9.1 mg/dL (7.6-11.0); Carbon Dioxide 27.7 mmol/L (21.0-32.0); Chloride 101 mmol/L (98-108); Cholesterol 203 mg/dL (<=200); EST Glomerular Filtration Rate 81 (>60); Globulin 2.2 g/dL (2.2-4.2); Glucose 84 mg/dL (70-99); High Density Lipoprotein 76 mg/dL; Low Density Lipoprotein Calc. 115 mg/dL; Potassium 4.6 mmol/L (3.3-5.1); Protein, Total 6.1 g/dL (5.9-8.4); Sodium Level 137 mmol/L (133-145); Total Bilirubin 0.34 mg/dL (0.00-1.30); Triglycerides 58 mg/dL; Very Low Density Lipoprotein 12 mg/dL (5-40); Vitamin B12 683 pg/mL (180-914); cholesterol:hdl ratio screen 2.67
== END ==
LOC: OLS.SWAL 08:12
PROVIDERS: PCP Family Medicine; Visit Provider Family Medicine
DX: I10 Essential (primary) hypertension; E78.5 Hyperlipidemia, unspecified; D51.9 Vitamin B12 deficiency anemia, unspecified; E03.9 Hypothyroidism, unspecified
CPT/HCPCS: 36415; 80053; 80061; 82607; 84439; 84443; 85027

== ENCOUNTER → 2025-03-16 | Outpatient (REF) | payer MEDICARE, MEDICAID, SELFPAY ==
[2025-03-16 07:30] LABS: Bacteria 0 SEEN /hpf (None Seen); Mucous, Urine 0 SEEN /hpf (<or=2+); Red Blood Cells-Urine 0 SEEN /hpf (0-5); Squamous Epithelial Cells - UA 0 SEEN /hpf (5-10); White Blood Cells 0 SEEN /hpf (0-5)
[2025-03-16 08:03] LABS: Color, Urine Yellow (Yellow); Glucose, Dipstick Normal (Normal); Ketone-Dipstick Negative (Negative); Leukocyte Esterase-Dipstick 25 /ul (Negative); Nitrite-Dipstick Negative (Negative); Occult Blood-Urine 10 /ul (Negative); Protein-Dipstick 15 mg/dl (Negative); Specific Gravity, Urine 1.005 (1.002-1.030); Urine Bilirubin Dipstick Negative (Negative); Urine Clarity Clear (Clear); Urine Urobilinogen Normal (Normal)
== END ==
LOC: OLS.SWAL 07:00
PROVIDERS: PCP Family Medicine; Visit Provider Family Medicine
DX: N39.0 Urinary tract infection, site not specified (principal)
CPT/HCPCS: 81001; 81515; 87086

== ENCOUNTER 2025-04-24 11:30 | Outpatient (RCR) | payer MEDICARE, MEDICAID, SELFPAY ==
--- NOTE | 2025-03-14 18:52 | HP.PTREVAL ---
Re-Evaluation Intro: Emiliano Casey MD, It has been my pleasure to treat STEVE FAGAN over the last 2 visits for L SHLD PAIN, OA AND ROTATOR CUFF TEAR. Please see the progress note below for an update on the physical therapy plan of care! Subjective Subjective: PATIENT REPORTS SHE CAN BARELY USE HER L ARM. MAINLY USES L ELBOW TO HAND. REFERRED TO DR. MAGAÑA BY DR. NICOLE AND SAW HIM 02/28/25. DR. NICOLE IS REFERRING HER TO DR. OSULLIVAN TO CONSULT FOR TSR W/RUPERT'T PENDING 03/27/25. L SHLD X-RAY 01/26/25: ADVANCED G-H JT ARTHROSOS W/BONE ON BONE ARTHROPATHY. MILD AC DEG CHANGES. STATES DR. MAGAÑA REFERRED HER TO PT TO SEE IF SHE COULD GET A LITTLE PAIN REDUCTION AND A LITTLE MORE MVMT. FELL 01/28/25. MRI OF NECK 02/27/[address] CASEY'S RN RESEARCH AND SAW DR. CASEY (NEURO SURGEON) 03/07/25. PATIENT REPORTS HE SAID MRI JUST SHOWS ARTHRITIS AND NOT MUCH CHANGE COMPARED TO 05/19/23 MRI. STATES HE RELATES MOST OF HER NECK PAIN TO HER TD (TARDIVE DYSKINESIA AND NO NECK SURGERY RECOMMENDED AND NO NECK PT ORDERED. L SHLD PAIN RANGING 1-9/10. INFORMATION FROM PATIENTS INITIAL PT ENCOUNTER 01/19/25: Present symptoms: ASIYA NECK PAIN, L SHLD PAIN AND SPASMS, NEAR CONSTANT MIGRAINES. ASIYA FINGER NUMBNESS AND TINGLING L>R. Pain Scale: NECK PAIN RANGING 2-9/10, L SHLD 1-9/10, HEAD PAIN 5-9/10 Currently: NECK 9/10, L SHLD 9/10, HEAD 8/10 Worse: LIGHTS MAKE HEADACHES WORSE, MOVING HEAD MAKES NECK PAIN WORSE, TRYING TO MOVE ARM MAKES SHLD PAIN WORSE. Better: HEATED RICE PACK, OTC PAIN PATCH, NARCO Disturbed sleep: YES Previous history/Previous treatment: CHRONIC NECK PAIN. BULGING DISC AND DDD IN NECK. L SHLD ROTATOR CUFF TEAR IN 2021 PUSHING UP FROM SITTING - UNREPAIRED. OCCUPATIONAL THERAPY AT [facility] RECENTLY - TRIED ULTRASOUND BUT COULDN'T TOLERATE IT. LAST RUPERT'T WAS 01/04/25. STATES TRIED E-STIM IN THE PAST AND COULD NOT TOLERATE THAT. GOES TO [facility] ONCE A MONTH AND [facility] RECOMMENDED SHE COME TO OUT-PATIENT PT. WENT TO [facility] WEDNESDAY THIS WEEK. [facility] SOMETIMES MANIPULATES NECK BUT DOES NOT WORK ON SHOULDER. OCCUPATIONAL THERAPIST SHOWED PATIENT NECK AND ASIYA SHOULDER ROM EX'S AND TRIED TO MOVE L ARM PASSIVELY. PATIENT REPORTS SHE HASN'T BEEN ABLE TO MOVE L SHLD. Dizziness: YES Tinnitus: NO Nausea: YES Shortness of Breath: NO Difficulty Swallowing: NO Gait: CAN WALK A LITTLE SHORT DISTANCES WITHOUT ROLLATOR BUT ROLLATOR HELPS HER STAND UP STRAIGHT. DENIES ANY FALLS SINCE JUL 2024. Unexplained weight loss: NO Imaging: NONE RECENT OF L SHLD. PMH/Recent major surgery: Tardive dyskinesia Anxiety and depression CKD (chronic kidney disease), stage II Lives in assisted living facility Scoliosis Left rotator cuff tear Bipolar 1 disorder, depressed Primary osteoarthritis, left shoulder Left rotator cuff tear Peripheral vascular disease Kyphosis GERD (gastroesophageal reflux disease) Migraine Asthma Irritable bowel Hypercholesteremia Anemia Hyperlipidemia Hypertension Bipolar 1 disorder Fibromyalgia Hypothyroid Cerebral palsy Hx of cholecystectomy History of appendectomy History of carpal tunnel release History of total right knee replacement History of total left knee replacement Objective Objective/Function: PATIENT WAS SEEN TODAY FOR ASSESSMENT OF L SHLD: THIS PATIENT AMBULATES INDEP INTO PT TODAY WITH ROLLATOR AND AMBULATES IN TREATMENT ROOM WITHOUT ANY AD. SHE TRANSFERS INDEP'LY SIT TO STAND WITH UE ASSIST. SHE ALSO TRANSFERS SIT TO SUPINE AND REVERSE INDEP'LY. AROM: L SHLD FLEX 70 DEG, ABD 45 DEG. MEASURED SITTING. PROM: L SHLD FLEX 75 DEG, ABD 55 DEG, ER 30 DEG, IR 35 DEG (ROTATIONS MEASURED W/45 DEG ABD). PROM MEASURED SUPINE. STRENGTH: L SHLD 2/5 COMPONENT LAB TECH 14 LBS. R COMPONENT LAB TECH 26 LBS. PATIENT C/O INCREASED PAIN WITH L SHLD TESTING BUT NW A RESULT. Plan Plan Plan: 2X'S A WK X 4-6 WKS GENTLE GRADE I AND II L SHLD MOBS FOR PAIN REDUCTION TOLERATED AND HELPFUL. LIGHT L SHLD STM FOR PAIN REDUCTION. GENTLE L SHLD A/AA/PROM TO TRY TO GET A LITTLE MORE ROM KEEPING PAIN BETWEEN 0-3/10. POSTURE TRAINING FOR PAIN REDUCTION. HEP INSTRUCTION. Balance/Gait/Functional tests Balance/Special Test Scores Oswestry Neck Score: 36 Quick DASH Score: 70.4525 Goals Goals Goal 1:: DECREASE C/O L SHLD PAIN BY AT LEAST 25% Goal Time Frame: 4-6 Weeks Goal 2:: INCREASE FUNCTIONAL L SHLD ROM BY AT LEAST 25% Goal Time Frame: 4-6 Weeks Goal 3:: HEP Goal Time Frame: 4-6 Weeks Anticipated Interventions Re-Evaluation Ending Re-evaluation ending: Please do not hesitate to contact me at [phone] by phone or if you have questions or concerns regarding this new plan of care! Sincerely, Ayanna Lombardo, PT, Cert MDT
--- NOTE | 2025-03-14 18:52 | HP.PTREVAL ---
Re-Evaluation Intro: Emiliano Casey MD, It has been my pleasure to treat STEVE FAGAN over the last 2 visits for L SHLD PAIN, OA AND ROTATOR CUFF TEAR. Please see the progress note below for an update on the physical therapy plan of care! Subjective Subjective: PATIENT REPORTS SHE CAN BARELY USE HER L ARM. MAINLY USES L ELBOW TO HAND. REFERRED TO DR. MAGAÑA BY DR. NICOLE AND SAW HIM 02/28/25. DR. NICOLE IS REFERRING HER TO DR. OSULLIVAN TO CONSULT FOR TSR W/RUPERT'T PENDING 03/27/25. L SHLD X-RAY 01/26/25: ADVANCED G-H JT ARTHROSOS W/BONE ON BONE ARTHROPATHY. MILD AC DEG CHANGES. STATES DR. MAGAÑA REFERRED HER TO PT TO SEE IF SHE COULD GET A LITTLE PAIN REDUCTION AND A LITTLE MORE MVMT. FELL 01/28/25. MRI OF NECK 02/27/[address] 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 CASEY (NEURO SURGEON) 03/07/25. PATIENT REPORTS HE SAID MRI JUST SHOWS ARTHRITIS AND NOT MUCH CHANGE COMPARED TO 05/19/23 MRI. STATES HE RELATES MOST OF HER NECK PAIN TO HER TD (TARDIVE DYSKINESIA AND NO NECK SURGERY RECOMMENDED AND NO NECK PT ORDERED. L SHLD PAIN RANGING 1-9/10. INFORMATION FROM PATIENTS INITIAL PT ENCOUNTER 01/19/25: Present symptoms: ASIYA NECK PAIN, L SHLD PAIN AND SPASMS, NEAR CONSTANT MIGRAINES. ASIYA FINGER NUMBNESS AND TINGLING L>R. Pain Scale: NECK PAIN RANGING 2-9/10, L SHLD 1-9/10, HEAD PAIN 5-9/10 Currently: NECK 9/10, L SHLD 9/10, HEAD 8/10 Worse: LIGHTS MAKE HEADACHES WORSE, MOVING HEAD MAKES NECK PAIN WORSE, TRYING TO MOVE ARM MAKES SHLD PAIN WORSE. Better: HEATED RICE PACK, OTC PAIN PATCH, NARCO Disturbed sleep: YES Previous history/Previous treatment: CHRONIC NECK PAIN. BULGING DISC AND DDD IN NECK. L SHLD ROTATOR CUFF TEAR IN 2021 PUSHING UP FROM SITTING - UNREPAIRED. OCCUPATIONAL THERAPY AT [facility] RECENTLY - TRIED ULTRASOUND BUT COULDN'T TOLERATE IT. LAST RUPERT'T WAS 01/04/25. STATES TRIED E-STIM IN THE PAST AND COULD NOT TOLERATE THAT. GOES TO [facility] ONCE A MONTH AND [facility] RECOMMENDED SHE COME TO OUT-PATIENT PT. WENT TO [facility] WEDNESDAY THIS WEEK. CHIROPRACTOR SOMETIMES MANIPULATES NECK BUT DOES NOT WORK ON SHOULDER. OCCUPATIONAL THERAPIST SHOWED PATIENT NECK AND ASIYA SHOULDER ROM EX'S AND TRIED TO MOVE L ARM PASSIVELY. PATIENT REPORTS SHE HASN'T BEEN ABLE TO MOVE L SHLD. Dizziness: YES Tinnitus: NO Nausea: YES Shortness of Breath: NO Difficulty Swallowing: NO Gait: CAN WALK A LITTLE SHORT DISTANCES WITHOUT ROLLATOR BUT ROLLATOR HELPS HER STAND UP STRAIGHT. DENIES ANY FALLS SINCE JUL 2024. Unexplained weight loss: NO Imaging: NONE RECENT OF L SHLD. PMH/Recent major surgery: Tardive dyskinesia Anxiety and depression CKD (chronic kidney disease), stage II Lives in assisted living facility Scoliosis Left rotator cuff tear Bipolar 1 disorder, depressed Primary osteoarthritis, left shoulder Left rotator cuff tear Peripheral vascular disease Kyphosis GERD (gastroesophageal reflux disease) Migraine Asthma Irritable bowel Hypercholesteremia Anemia Hyperlipidemia Hypertension Bipolar 1 disorder Fibromyalgia Hypothyroid Cerebral palsy Hx of cholecystectomy History of appendectomy History of carpal tunnel release History of total right knee replacement History of total left knee replacement Objective Objective/Function: PATIENT WAS SEEN TODAY FOR ASSESSMENT OF L SHLD: THIS PATIENT AMBULATES INDEP INTO PT TODAY WITH ROLLATOR AND AMBULATES IN TREATMENT ROOM WITHOUT ANY AD. SHE TRANSFERS INDEP'LY SIT TO STAND WITH UE ASSIST. SHE ALSO TRANSFERS SIT TO SUPINE AND REVERSE INDEP'LY. AROM: L SHLD FLEX 70 DEG, ABD 45 DEG. MEASURED SITTING. PROM: L SHLD FLEX 75 DEG, ABD 55 DEG, ER 30 DEG, IR 35 DEG (ROTATIONS MEASURED W/45 DEG ABD). PROM MEASURED SUPINE. STRENGTH: L SHLD 2/5 SPEED READING TEACHER 14 LBS. R SPEED READING TEACHER 26 LBS. PATIENT C/O INCREASED PAIN WITH L SHLD TESTING BUT NW A RESULT. Plan Plan Plan: 2X'S A WK X 4-6 WKS GENTLE GRADE I AND II L SHLD MOBS FOR PAIN REDUCTION TOLERATED AND HELPFUL. LIGHT L SHLD STM FOR PAIN REDUCTION. GENTLE L SHLD A/AA/PROM TO TRY TO GET A LITTLE MORE ROM KEEPING PAIN BETWEEN 0-3/10. POSTURE TRAINING FOR PAIN REDUCTION. HEP INSTRUCTION. Balance/Gait/Functional tests Balance/Special Test Scores Oswestry Neck Score: 36 Quick DASH Score: 70.4525 Goals Goals Goal 1:: DECREASE C/O L SHLD PAIN BY AT LEAST 25% Goal Time Frame: 4-6 Weeks Goal 2:: INCREASE FUNCTIONAL L SHLD ROM BY AT LEAST 25% Goal Time Frame: 4-6 Weeks Goal 3:: HEP Goal Time Frame: 4-6 Weeks Anticipated Interventions Re-Evaluation Ending Re-evaluation ending: Please do not hesitate to contact me at [phone] by phone or if you have questions or concerns regarding this new plan of care! Sincerely, Ayanna Lombardo, PT, Cert MDT
--- NOTE | 2025-03-28 15:12 | HP.PTREVAL_ITS ---
Re-Evaluation Intro: Emiliano Bhatt MD, It has been my pleasure to treat STEVE FAGAN over the last 7 visits for L SHLD PAIN, OA AND ROTATOR CUFF TEAR. Please see the progress note below for an update on the physical therapy plan of care! Subjective Subjective: UPON ARRIVAL, PATIENT STATES SHE WANTS TO BE DISCHARGED FOR HER L SHLD AND RE-ASSESSED FOR HER NECK TODAY. PATIENT REPORTS SHE IS GOING TO HAVE A L TOTAL SHOULDER REPLACEMENT MID MAY 2025. PATIENT REPORTS HER L SHLD IS 85% BETTER SINCE STARTING PHYSICAL THERAPY IN TERMS OF PAIN AND THE MVMT IS A LITTLE BIT BETTER TOO. SHE REPORTS SHE IS DOING AROM EX'S AT HOME WITH HER SHOULDER. CURRENT NECK/UE SX'S: ASIYA NECK PAIN AND NEAR CONSTANT MIGRAINES. ASIYA FINGER NUMBNESS AND TINGLING L>R AND NUMBNESS IN THE WHOLE L HAND NOW. 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 LESSER CANAL STENOSIS IN THE UPPER LEVELS OUTLINED IN REPORT. INFORMATION FROM PATIENTS INITIAL PT ENCOUNTER 01/19/25: Present symptoms: ASIYA NECK PAIN, L SHLD PAIN AND SPASMS, NEAR CONSTANT MIGRAINES. ASIYA FINGER NUMBNESS AND TINGLING L>R. Pain Scale: NECK PAIN RANGING 2-9/10, L SHLD 1-9/10, HEAD PAIN 5-9/10 Currently: NECK 9/10, L SHLD 9/10, HEAD 8/10 Worse: LIGHTS MAKE HEADACHES WORSE, MOVING HEAD MAKES NECK PAIN WORSE, TRYING TO MOVE ARM MAKES SHLD PAIN WORSE. Better: HEATED RICE PACK, OTC PAIN PATCH, NARCO Disturbed sleep: YES Previous history/Previous treatment: CHRONIC NECK PAIN. BULGING DISC AND DDD IN NECK. L SHLD ROTATOR CUFF TEAR IN 2021 PUSHING UP FROM SITTING - UNREPAIRED. OCCUPATIONAL THERAPY AT [facility] RECENTLY - TRIED ULTRASOUND BUT COULDN'T TOLERATE IT. LAST RUPERT'T WAS 01/04/25. STATES TRIED E-STIM IN THE PAST AND COULD NOT TOLERATE THAT. GOES TO [facility] ONCE A MONTH AND CHIROP[facility]OR RECOMMENDED SHE COME TO OUT-PATIENT PT. WENT TO [facility] WEDNESDAY THIS WEEK. CHIROPRACTOR SOMETIMES MANIPULATES NECK BUT DOES NOT WORK ON SHOULDER. OCCUPATIONAL THERAPIST SHOWED PATIENT NECK AND ASIYA SHOULDER ROM EX'S AND TRIED TO MOVE L ARM PASSIVELY. PATIENT REPORTS SHE HASN'T BEEN ABLE TO MOVE L SHLD. Dizziness: YES Tinnitus: NO Nausea: YES Shortness of Breath: NO Difficulty Swallowing: NO Gait: CAN WALK A LITTLE SHORT DISTANCES WITHOUT ROLLATOR BUT ROLLATOR HELPS HER STAND UP STRAIGHT. DENIES ANY FALLS SINCE JUL 2024. Unexplained weight loss: NO Imaging: NONE RECENT OF L SHLD. PMH/Recent major surgery: Tardive dyskinesia Anxiety and depression CKD (chronic kidney disease), stage II Lives in assisted living facility Scoliosis Left rotator cuff tear Bipolar 1 disorder, depressed Primary osteoarthritis, left shoulder Left rotator cuff tear Peripheral vascular disease Kyphosis GERD (gastroesophageal reflux disease) Migraine Asthma Irritable bowel Hypercholesteremia Anemia Hyperlipidemia Hypertension Bipolar 1 disorder Fibromyalgia Hypothyroid Cerebral palsy Hx of cholecystectomy History of appendectomy History of carpal tunnel release History of total right knee replacement History of total left knee replacement Objective Objective/Function: RE-ASSESSMENT OF L SHLD: THIS PATIENT AMBULATES INDEP INTO PT TODAY WITH ROLLATOR AND AMBULATES IN TREATMENT ROOM WITHOUT ANY AD. AMBULATING BACK TO TREATMENT ROOM SHE LEANS ON HER L FOREARM ON THE ROLLATOR. SHE TRANSFERS INDEP'LY SIT TO STAND WITH UE ASSIST. SHE ALSO TRANSFERS SIT TO SUPINE AND REVERSE INDEP'LY. AROM: L SHLD FLEX 72 DEG, ABD 46 DEG. MEASURED SITTING. PROM: L SHLD FLEX 75 DEG, ABD 52 DEG, ER 42 DEG, IR 57 DEG (ROTATIONS MEASURED W/40 DEG ABD). PROM MEASURED SUPINE. STRENGTH: L SHLD 2/5 CONCRETE CONVEYOR OPERATOR 21 LBS. R CONCRETE CONVEYOR OPERATOR 30 LBS. PATIENT C/O INCREASED PAIN WITH L SHLD TESTING BUT NW A RESULT. CERVICAL ASSESSMENT: Active Correction of posture: PATIENT IS ONLY ABLE TO VERY MINIMALLY ABLE TO CORRECT VERY SLOUCHED FORWARD HEAD AND ROUNDED POSTURE WITH NE ON NECK OR UE PAIN. Sensory deficit: ASIYA UE LIGHT TOUCH SENSATION GROSSLY INTACT AND SYMMETRICAL ROM deficit: 120 DEG R SHLD ELEVATION. SEE MEASUREMENTS ABOVE FOR L SHLD. Motor deficit: SEE CONCRETE CONVEYOR OPERATOR STRENGTH ABOVE. ASIYA UE WEAKNESS L > R. R UE STRENGTH GROSSLY 3+ TO 4-/5 AND L UE STRENGTH GROSSLY 2 TO 3+/5. Cervical Mvmt Loss: Flex: MOD Pro: NIL Ext: MIN - INCREASES L NECK AND HEAD PAIN Ret: JANET - INCREAES HEAD PAIN AND L NECK PAIN RSB: MOD - INCREASES HEAD AND L NECK PAIN LSB: MOD - INCREASES L NECK PAIN R Rot: JANET - INCREASES ASIYA NECK PAIN AND HEAD PAIN L Rot: JANET - INCREASES L NECK PAIN AND HEAD PAIN PATIENT REPORTS SHE IS HAVING EYE ISSUES AND THE NECK ROM TESTING SEEMS TO EFFECT HER EYES. SHE ALSO REPORTS NECK ROM TESTING PROVOKING SOME R HAND TINGLING AFTER TESTING IS COMPLETE AND INCREASED L HAND TINGLING/NUMBNESS - ASIYA HAND SX'S WERE DELAYED ONSET. Postural strength: POOR Palpation: PATIENT IS VERY SENSATIVE TO LIGHT PALPATION ASIYA UPPER TRAPS, UPPER THORACIC, ENTIRE CERVICAL SPINE, OCCIPUT L > R AND ASIYA SHOULDERS. Plan Plan Plan: D/C L SHLD PHYSICAL THERAPY AT PATIENTS REQUEST (L TSR PENDING MAY 2025). CERVICAL PLAN: PT 2X'S A WK X 2-3 WKS FOR POSTURE TRAINING/STRENGTHENING TO TRY TO RELIEVE STRESS ON CERVICAL SPINE AND ASIYA UPPER TRAP STM TOLERATED DUE TO POSITIVE RESPONSE DURING L SHLD THERAPY AND TO HELP PATIENT TOLERATE NEW EXERCISES. PATIENT AGREEABLE. WILL ALSO TRY TO TEACH SELF STM TECHNIQUES. Balance/Gait/Functional tests Balance/Special Test Scores Oswestry Neck Score: 14 Quick DASH Score: 54.5450 Goals Goals Goal 1:: DECREASE C/O L SHLD PAIN BY AT LEAST 25% Goal Time Frame: 4-6 Weeks Goal Progress: Goal Met Goal 2:: INCREASE FUNCTIONAL L SHLD ROM BY AT LEAST 25% Goal Time Frame: 4-6 Weeks Goal Progress: Not Progressing Goal 3:: HEP Goal Time Frame: 4-6 Weeks Goal Progress: Not Progressing Goal 4:: NEW GOAL: DECREASE C/O NECK PAIN BY AT LEAST 25% Goal Time Frame: 2-4 Weeks Goal 5:: INDEP HEP FOR POSTURE CORRECTION. Goal Time Frame: 2-4 Weeks Anticipated Interventions Re-Evaluation Ending Re-evaluation ending: Please do not hesitate to contact me at [phone] by phone or if you have questions or concerns regarding this new plan of care! Sincerely, Ayanna Lombardo, PT, Cert MDT
--- NOTE | 2025-04-24 16:25 | HP.PTDCSUM_ITS ---
Discharge Summary D/C summary: It has been my pleasure to treat STEVE FAGAN referred by Emiliano Bhatt MD, with the diagnosis of L SHLD PAIN, OA AND ROTATOR CUFF TEAR for a total of 11 visit(s). Discharge Date: 04/24/25 Please see the following information for a summary of their discharge status. Subjective Subjective: PATIENT REPORTS SHE WAS IMPRESSED WITH BEING ABLE TO DO SOME OF THE EX'S SHE HAS BEEN ABLE TO DO. PATIENT REPORTS THEREAPY HAS HELPED WITH HER NECK PAIN AND THE MOVEMENT IN HER NECK. SHE REPORTS SHE HAS THE BANDS TO CONTINUE THE EX'S AT HOME. SHE STATES SHE IS STILL PLANNING TO HAVE L SHOULDER SURGERY IN MAY 14 2025. Pain 3: Pain Intensity (Out of 10): 3 L SHOULDER: Pain Intensity (Out of 10): 6 NECK: Pain Intensity (Out of 10): 5 HEAD: Pain Intensity (Out of 10): 5 Overall Improvement % Improvement: 85 Objective Objective/Function: PATIENT WAS SEEN TODAY FOR RE-ASSESSMENT OF PROGRESS TOWARD THE SET PT GOALS AND THE NEED FOR FURTHER PHYSICAL THERAPY VS READINESS FOR DISCHARGE. PATIENT HAS HAD SOME IMPROVEMENT IN SUBJECTIVE PAIN REPORTS IN HER NECK PAIN AND IN HER OBJECTIVE TESTING BELOW. UPON EXAM TODAY: Active Correction of posture: PATIENT IS ONLY ABLE TO VERY MINIMALLY ABLE TO CORRECT VERY SLOUCHED FORWARD HEAD AND ROUNDED POSTURE WITH NE ON NECK OR UE PAIN. HYPERKYPHOSIS Sensory deficit: ASIYA UE LIGHT TOUCH SENSATION GROSSLY INTACT AND SYMMETRICAL ROM deficit: 153 DEG R SHLD ELEVATION. L UE - NO SIGNIFICANT CHANGE. Motor deficit: R UE STRENGTH GROSSLY 3+ TO 4-/5 AND L UE - NT. FIELD LABORATORY OPERATOR 30 LBS. R FIELD LABORATORY OPERATOR 35 LBS. Cervical Mvmt Loss: Flex: NIL Pro: NIL Ext: MIN Ret: JANET RSB: MOD LSB: MOD R Rot: MOD L Rot: MOD PATIENT REPORTS SOME MILD INCREASED HEAD AND NECK PAIN WITH CERVICAL ROM TESTING TODAY BUT STATES THAT'S NOT TOO BAD TODAY. PATIENT REPORTS SHE IS STILL HAVING EYE ISSUES AND THE NECK ROM TESTING STILL SEEMS TO EFFECT HER EYES A LITTLE BIT TODAY. SHE ALSO REPORTS NECK ROM TESTING PROVOKING SOME R HAND TINGLING AFTER TESTING IS COMPLETE AND INCREASED L HAND TINGLING/NUMBNESS - ASIYA HAND SX'S WERE DELAYED ONSET AGAIN TODAY. Goals Goal 1:: DECREASE C/O L SHLD PAIN BY AT LEAST 25% Goal Progress: Goal Met Goal 2:: INCREASE FUNCTIONAL L SHLD ROM BY AT LEAST 25% Goal Progress: Not Progressing Goal 3:: HEP Goal Progress: Not Progressing Goal 4:: NEW GOAL: DECREASE C/O NECK PAIN BY AT LEAST 25% Goal Progress: Goal Met Goal 5:: INDEP HEP FOR POSTURE CORRECTION. Goal Progress: Goal Met Plan Plan: D/C TO HEP. D/C Information d/c sentence: If there are questions or concerns regarding this patient's physical therapy, please feel free to call me at [phone]. Thank you for the referral of this patient. Sincerely, Ayanna Lombardo, PT, Cert MDT Balance/Gait/Functional tests Balance/Special Test Scores Oswestry Neck Score: 19 Quick DASH Score: 54.5450 Improvement % Improvement: 85
== END 2025-04-24 19:00 | disposition home or self-care (01) ==
LOC: PT 11:30
PROVIDERS: PCP Family Medicine; Referring Provider Neurological Surgery; Visit Provider Neurological Surgery
DX: M54.2 Cervicalgia (principal); M25.512 Pain in left shoulder; G43.909 Migraine, unspecified, not intractable, without status migrainosus
CPT/HCPCS: 97110; 97140; 97162; 97530

== ENCOUNTER → 2025-07-12 | Outpatient (REF) | payer MEDICARE, MEDICAID, SELFPAY ==
[2025-07-12 12:03] LABS: Hematocrit 35.8 % (37-47); Hemoglobin 11.9 g/dL (12.0-15.0); Mean Corp Hgb Conc 33.2 g/dL (32-36); Mean Corpuscular Volume 97.8 fL (81-99); Mean Platelet Vol. 9.4 fl (6.2-12.0); Platelet Count 222 K/mm3 (150-450); RBC Distribution Width CV 12.5 % (11.6-14.6); RBC Distribution Width SD 45.1 fl (35.1-43.9); Red Blood Count 3.66 M/mm3 (4.2-5.4); White Blood Count 5.2 K/mm3 (4.4-11.0)
== END ==
LOC: OLS.SW 05:00
PROVIDERS: PCP Family Medicine
DX: R30.0 Dysuria (principal)
CPT/HCPCS: 36415; 83036; 85027

== ENCOUNTER → 2025-08-08 | Outpatient (REF) | payer MEDICARE, MEDICAID, SELFPAY ==
[2025-08-09 08:46] LABS: Mucous, Urine 0 SEEN /hpf (<or=2+); Red Blood Cells-Urine 0 SEEN /hpf (0-5); Squamous Epithelial Cells - UA 0 SEEN /hpf (5-10)
[2025-08-09 09:44] LABS: Color, Urine Yellow (Yellow); Glucose, Dipstick Normal (Normal); Ketone-Dipstick Negative (Negative); Leukocyte Esterase-Dipstick 500 /ul (Negative); Nitrite-Dipstick Negative (Negative); Occult Blood-Urine 10 /ul (Negative); Protein-Dipstick 30 mg/dl (Negative); Specific Gravity, Urine 1.010 (1.002-1.030); Urine Bilirubin Dipstick Negative (Negative)
== END ==
LOC: OLS.SWAL 15:00
PROVIDERS: PCP Family Medicine
DX: N39.0 Urinary tract infection, site not specified (principal)
CPT/HCPCS: 81001; 87086; 87088

== ENCOUNTER → 2025-08-09 | Outpatient (CLI) | payer MEDICARE, MEDICAID, SELFPAY | END | disposition home or self-care (01) | LOC: SL 12:35 | PROVIDERS: PCP Family Medicine; Visit Provider Nurse Practitioner Family | DX: G47.33 Obstructive sleep apnea (adult) (pediatric) (principal) | CPT/HCPCS: 98960; G0463 ==

== ENCOUNTER 2025-09-06 09:00 | Day surgery (SDC) | payer MEDICARE, MEDICAID, SELFPAY ==
--- NOTE | 2025-09-03 09:39 | PAT.ANE_ITS ---
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 When Was Last Pacemaker Check QUESTION #4 FULL TEXT: You/Your Family Experience fever (hyperthermia) with Anesthesia Last Oral Intake Last Oral intake: Last Oral Intake NPO since Meds taken in AM with sips of water? Meds patient instructed to take am of surgery PONV PONV - research contracts supervisor: PONV - research contracts supervisor Female Yes 08/31/25 15:14 HX of Motion Sickness Yes 08/31/25 15:14 HX of N/V After Surgery No 08/31/25 15:14 Non-Smoker Yes 08/31/25 15:14 Duration of Surgery greater No 08/31/25 15:14 than 60 minutes Number of Risk Factors 3 08/31/25 15:14 PONV Score Moderate Risk 08/31/25 15:14 Height & Weight Height & Weight: Anesthesia: Height & Weight Height 5 ft 07/24/25 09:18 Respiratory Assessment Respiratory Assessment - research contracts supervisor: Respiratory Tract Infection Hx - research contracts supervisor Hx Respiratory Tract Infection No 08/31/25 15:14 STOP Sleep Apnea STOP Sleep Apnea - research contracts supervisor: STOP Sleep Apnea - research contracts supervisor Hx Hypertension Yes 08/31/25 15:14 Hx Sleep Apnea Yes 08/31/25 15:14 CPAP No 08/31/25 15:14 BIPAP Yes 08/31/25 15:14 Do you snore loudly (louder than talking or can be heard Do you often feel tired/ fatigued/ sleepy during daytime? Has anyone observed you stop breathing during sleep? STOP Results Positive 08/31/25 15:14 QUESTION #5 FULL TEXT : Do you snore loudly (louder than talking or can be heard through closed doors)? Tobacco Use History Tobacco Use History - research contracts supervisor: Tobacco Use History - research contracts supervisor Tobacco Use Non-smoker 02/08/25 11:05 Smoking Status Never smoker 08/31/25 15:14 Hx Tobacco Use No 08/31/25 15:14 Years Smoking Packs Smoked per Day Smoking Cessation Date was within the last 15 years Hx Smoking Cessation Date Hx Smoking Cessation No 08/31/25 15:14 Counseling Hematologic Medial History Hematologic Hx - research contracts supervisor: Hematologic Medical Hx - technical documentation specialist Hx of Blood Transfusion No 08/31/25 15:14 Hx of Transfusion in last 3 No 08/31/25 15:14 Months Date of Last Transfusion (if within last 3 months) Ever experience any problems No 08/31/25 15:14 with transfusion(s)? Specify any problems Hx of Preganancy in last 3 No 08/31/25 15:14 Months Nurse Filling Out Transfusion JZOLLINGE 08/31/25 15:14 & Questions: Date: 08/31/25 08/31/25 15:14 Time: 15:18 08/31/25 15:14 Patient unable to answer at this time (ie. confused, unrespo /Reproduction History /Reproductive History - research contracts supervisor: /Reproductive Hx- research contracts supervisor Hx Now No 08/31/25 15:14 Gestational Age (in weeks): EDC: Hx Hx Para Hx Section SAB No 08/31/25 15:14 [facility] Medical History (Updated 08/31/25 @ 15:48 by Martita Mar) Uses walker Wears glasses Wears dentures Dietary restriction History of hiatal hernia History of ulceration BiPAP (biphasic positive airway pressure) dependence Sleep apnea Tardive dyskinesia Anxiety and depression CKD (chronic kidney disease), stage II Lives in assisted living facility Scoliosis Left rotator cuff tear Bipolar 1 disorder, depressed Primary osteoarthritis, left shoulder Left rotator cuff tear Peripheral vascular disease Kyphosis GERD (gastroesophageal reflux disease) Migraine Asthma Irritable bowel Hypercholesteremia Anemia Hyperlipidemia Hypertension Bipolar 1 disorder Fibromyalgia Hypothyroid Cerebral palsy Home Medications Medication Instructions Recorded Last Taken Type fluticasone propionate 50 2 spray NASAL DAILY congesti on 01/03/16 03/24/21 History mcg/actuation nasal spray,suspension aspirin 81 mg chewable tablet 81 mg PO DAILY heart hea lth 12/16/17 03/24/21 History multivitamin 1 ea PO DAILY supplement 11/1903/24/21 History polyethylene glycol 3350 17 gram 17 g PO DAILY bowels 06/22/19 03/22/21 History oral powder packet promethazine 25 mg tablet 25 mg PO Q6H PRN PRN Nausea 01/07/21 03/23/21 History clopidogrel 75 mg tablet (Plavix) 75 mg PO DAILY antip latelet 02/15/22 03/27/24 History nystatin 100,000 unit/gram topical 1 applic topical DA DC PRN SKIN 06/17/22 Unknown History powder ferrous sulfate 325 mg (65 mg 325 mg PO DAILY suppleme nt 09/07/22 Unknown History iron) tablet cholecalciferol (vitamin D3) 50 50 mcg PO DAILY supple ment 12/03/22 Unknown History mcg (2,000 unit) capsule rosuvastatin 5 mg tablet 5 mg PO QHS cholesterol 05/03 11/23 Unknown History lamotrigine 100 mg tablet 100 mg PO QHS seizures 01/2303/30/24 History magnesium oxide 400 mg PO DAILY supplement 0 03/21/24 03/29/24 History tizanidine 4 mg tablet 4 mg PO DAILY muscle relaxer 07/21/24 Unknown History hydroxyzine pamoate 25 mg capsule 25 mg PO BID anxiety #60 caps 08/08/24 Unknown Rx docusate sodium 100 mg capsule 100 mg PO QDAY PRN cons tipation 09/22/24 Unknown History (Colace) acetaminophen 500 mg tablet 1,000 mg PO BID 12/08/24 U nknown History cyanocobalamin (vitamin B-12) 1,000 mcg IM QMONTH 05/25 Unknown History 1,000 mcg/mL injection solution hydrocodone-acetaminophen 5-325mg 1 tab PO TID 5 Unknown History 5mg-325mg hydrocortisone 2.5 % topical cream 1 applic topical TI D PRN pain 12/08/24 Unknown History lamotrigine 200 mg tablet 200 mg PO BID 12/08/24 Unkno wn History levothyroxine 75 mcg tablet 75 mcg PO DAILY 12/08/24 U nknown History (Synthroid) losartan 25 mg tablet 25 mg PO QDAY blood pressure 12/08/24 Unknown History meclizine 12.5 mg tablet 12.5 mg PO QDAY PRN dizzines s 12/08/24 Unknown History vit C 250 mg-vit E 90 mg-zinc 40 1 tab PO BID 12/08/24 Unknown History mg-copper 1 ot-ghuudk-eowhex capsule (PreserVision AREDS-2) gabapentin 400 mg capsule 400 mg PO TID 01/17/25 Unkno wn History psljqbayth-bwzyznznbadvb-jmjwawfv 1 tab PO .qd PRN odrothy n 03/13/25 Unknown History 50 mg-325 mg-40 mg tablet ibandronate 150 mg tablet 150 mg PO QMONTH 06/07/25 Un known History losartan 50 mg tablet 50 mg PO QDAY 06/07/25 Unkno wn History potassium chloride 10 mEq 10 meq PO BID 07/18/25 Unkno wn History capsule,extended release sumatriptan succinate 25 mg tablet 25 mg PO .qd PRN mi graine headache 07/18/25 Unknown History tetrabenazine 25 mg tablet 25 mg PO BID 07/18/25 Unkno wn History calcium carbonate (Oyster Shell 500 mg PO BID 07/24/25 Unknown History Calcium) calcium polycarbophil 625 mg 625 mg PO .four times skyler ly PRN 07/24/25 Unknown History tablet (Fiber-Lax) constipation diclofenac sodium 1 % topical gel 2.25 inch topical ON CE 07/24/25 Unknown History lidocaine 4 % topical patch 1 patch topical QDAY PRN p ain 07/24/25 Unknown History magnesium hydroxide 400 mg/5 mL 15 ml PO BID PRN const ipation 07/24/25 Unknown History oral suspension (Milk of Magnesia) tizanidine 2 mg capsule 4 mg PO DAILY 07/24/25 Unkno wn History tizanidine 6 mg capsule 6 mg PO QHS 07/24/25 Unknown History BIPAP -Bilevel Positive Airway 08/09/25 Unknown Histo ry Pressure ([facility] INFORMATIONAL USE ONLY) albuterol sulfate 90 mcg/actuation inhalation 08/31/25 Unknown History aerosol inhaler fluticasone propionate 50 2 spray intranasal DAILY PRN 08/31/25 Unknown History mcg/actuation nasal allergy symptoms spray,suspension (24 Hour Allergy Relief) Allergy/AdvReac Type Severity Reaction Status Date / Time rimegepant (From Nurtec ODT) Allergy Severe Pain in Verified 08/31/25 14:47 joints lithium Allergy Mild Vomiting Verified 08/31/25 14:47 propantheline Allergy Unknown unknown Verified 08/31/25 14:47 ziprasidone (From Geodon) Allergy Unknown unknown Verified 08/31/25 14:47 aspartame Allergy Itching Verified 08/31/25 14:47 carrot Allergy Food Verified 08/31/25 14:47 Allergy ciclesonide (From [place]ves[place]) Allergy Shortness Verified 08/31/25 14:47 of breath diphenhydramine (From Allergy Other Verified 08/31/25 14:47 Benadryl) diphenhydramine HCl (From Allergy Rash Verified 08/31/25 14:47 Benadryl) imipramine Allergy Other Verified 08/31/25 14:47 levofloxacin (From Levaquin) Allergy Itching Verified 08/31/25 14:47 onabotulinumtoxinA (From Allergy Itching Verified 08/31/25 14:47 Botox) Penicillins Allergy Rash Verified 08/31/25 14:47 Seasonal Allergies: Uncoded Allergy NEEDS Verified 08/31/25 14:47 (environmental) FOLLOW-UP Sulfa (Sulfonamide Allergy NEEDS Verified 08/31/25 14:47 Antibiotics) FOLLOW-UP sulfamethoxazole (From Allergy NEEDS Verified 08/31/25 14:47 Bactrim) FOLLOW-UP topiramate (From Topamax) Allergy Other Verified 08/31/25 14:47 trimethoprim (From Bactrim) Allergy NEEDS Verified 08/31/25 14:47 FOLLOW-UP baclofen AdvReac Severe vomitting Verified 08/31/25 14:47 erythromycin base AdvReac Severe chest pain Verified 08/31/25 14:47 fentanyl AdvReac Severe Vomiting Verified 08/31/25 14:47 lubiprostone (From Amitiza) AdvReac Severe Vomiting Verified 08/31/25 14:47 ondansetron (From Zofran) AdvReac Severe Vomiting Verified 08/31/25 14:47 oxycodone AdvReac Severe vomitting Verified 08/31/25 14:47 oxymorphone AdvReac Severe ABD pain Verified 08/31/25 14:47 and vomiting pregabalin (From Lyrica) AdvReac Severe eyes would Verified 08/31/25 14:47 stay closed codeine AdvReac nausea Verified 08/31/25 14:47 lurasidone AdvReac Pain in Verified 08/31/25 14:47 joints sertraline (From Zoloft) AdvReac serotoin Verified 08/31/25 14:47 syndrome valbenazine (From Ingrezza) AdvReac Other Verified 08/31/25 14:47 Family History Sister CVA (cerebral vascular accident) Afib Heart disease Liver disease Brother Colon cancer Father Emphysema lung Surgical History (Updated 07/18/25 @ 10:51 by Lucia Santos) H/O shoulder replacement Hx of cholecystectomy History of appendectomy History of carpal tunnel release History of total right knee replacement History of total left knee replacement Social History adopted: No housing: assisted living facility current occupational status: disabled pets and animals: No Smoking Status: Never smoker alcohol intake: never substance use type: does not use Audit: Pertinent Findings Pertinent Findings EKG Perinent findings: 12/08/2024. Normal sinus rhythm 70 bpm. Echo (EF%) pertinent findings: 07/22/2024. EF 60%. Mild to moderate aortic s tenosis. Pulmonary function results/spirometer pertinent findings: Chest x-ray 12/08/2024. Cardiomegaly with mild congestion. Recommendation Anesthesia Recommendation Anesthesia recommendation: OPTIMIZED for anesthesia
[2025-09-06] VITALS (7 sets, daily range): BP systolic 81–150; BP diastolic 67–93; PULSE 62–65; RESP 16; TEMP 36.2–36.6; O2SAT 95–99; BMI 34.0
--- NOTE | 2025-09-06 09:13 | PCM.HP.STD ---
HPI - General General Date of Admission: 09/06/25 Date of Service: 09/06/25 Chief Complaint: Gastroparesis HPI Narrative PAZ FAGAN, is a 70 F who presents [ Chief Complaint: Abdominal pain 5.6.25 GET 4hr Percent activity remaining in stomach: 1 hour 54 % (normal 37-90%) 2 hours: 50 % (normal 30-60%) 4 hours: 32 % (normal 0-10% Last office visit 03/30/2025 with Melia Kearns [employer] for heartburn. Patient have increased nausea which she lactulose increased foods. Recommendation to eat small frequent meals, avoid foods high in fiber and fat. And remain upright after eating. OV 08/09/2025 patient continues to have epigastric. This is not always related to eating food. She has been trying to eat small frequent meals and avoiding fiber and fatty foods. This is difficult for her as the assisted living does not help her with portioning her meals. Patient also with complaints of soft and mushy stools frequently. This has been going on for a few months. [facility] Medical History Uses walker Wears glasses Wears dentures Dietary restriction History of hiatal hernia History of ulceration BiPAP (biphasic positive airway pressure) dependence Sleep apnea Tardive dyskinesia Anxiety and depression CKD (chronic kidney disease), stage II Lives in assisted living facility Scoliosis Left rotator cuff tear Bipolar 1 disorder, depressed Primary osteoarthritis, left shoulder Left rotator cuff tear Peripheral vascular disease Kyphosis GERD (gastroesophageal reflux disease) Migraine Asthma Irritable bowel Hypercholesteremia Anemia Hyperlipidemia Hypertension Bipolar 1 disorder Fibromyalgia Hypothyroid Cerebral palsy Home Medications Medication Instructions Recorded Last Taken Type fluticasone propionate 50 2 spray NASAL DAILY congestion 01/03/16 03/24/21 History mcg/actuation nasal spray,suspension aspirin 81 mg chewable tablet 81 mg PO DAILY heart health 12/16/17 03/24/21 History multivitamin 1 ea PO DAILY supplement 12/02/18 03/24/21 History polyethylene glycol 3350 17 gram 17 g PO DAILY bowels 06/22/19 03/22/21 History oral powder packet promethazine 25 mg tablet 25 mg PO Q6H PRN PRN Nausea 01/07/21 03/23/21 History clopidogrel 75 mg tablet (Plavix) 75 mg PO DAILY antiplatelet 02/15/22 03/27/24 History nystatin 100,000 unit/gram topical 1 applic topical DAILY PRN SKIN 06/17/22 Unknown History powder ferrous sulfate 325 mg (65 mg 325 mg PO DAILY supplement 09/07/22 Unknown History iron) tablet cholecalciferol (vitamin D3) 50 50 mcg PO DAILY supplement 12/03/22 Unknown History mcg (2,000 unit) capsule rosuvastatin 5 mg tablet 5 mg PO QHS cholesterol 05/31/23 Unknown History lamotrigine 100 mg tablet 100 mg PO QHS seizures 01/24/24 03/30/24 History magnesium oxide 400 mg PO DAILY supplement 03/21/24 03/29/24 History tizanidine 4 mg tablet 4 mg PO DAILY muscle relaxer 07/21/24 Unknown History hydroxyzine pamoate 25 mg capsule 25 mg PO BID anxiety #60 caps 08/08/24 Unknown Rx docusate sodium 100 mg capsule 100 mg PO QDAY PRN constipation 09/22/24 Unknown History (Colace) acetaminophen 500 mg tablet 1,000 mg PO BID 12/08/24 Unknown History cyanocobalamin (vitamin B-12) 1,000 mcg IM QMONTH 12/08/24 Unknown History 1,000 mcg/mL injection solution hydrocodone-acetaminophen 5-325mg 1 tab PO TID 12/08/24 Unknown History 5mg-325mg hydrocortisone 2.5 % topical cream 1 applic topical TID PRN pain 12/08/24 Unknown History lamotrigine 200 mg tablet 200 mg PO BID 12/08/24 Unknown History levothyroxine 75 mcg tablet 75 mcg PO DAILY 12/08/24 Unknown History (Synthroid) losartan 25 mg tablet 25 mg PO QDAY blood pressure 12/08/24 Unknown History meclizine 12.5 mg tablet 12.5 mg PO QDAY PRN dizziness 12/08/24 Unknown History vit C 250 mg-vit E 90 mg-zinc 40 1 tab PO BID 12/08/24 Unknown History mg-copper 1 yi-wmypzt-vgquvs capsule (PreserVision AREDS-2) gabapentin 400 mg capsule 400 mg PO TID 01/17/25 Unknown History zrrlcmlmbq-ltcnoknxagwsb-erfcobeb 1 tab PO .qd PRN pain 03/13/25 Unknown History 50 mg-325 mg-40 mg tablet ibandronate 150 mg tablet 150 mg PO QMONTH 06/07/25 Unknown History losartan 50 mg tablet 50 mg PO QDAY 06/07/25 Unknown History potassium chloride 10 mEq 10 meq PO BID 07/18/25 Unknown History capsule,extended release sumatriptan succinate 25 mg tablet 25 mg PO .qd PRN migraine headache 07/18/25 Unknown History tetrabenazine 25 mg tablet 25 mg PO BID 07/18/25 Unknown History calcium carbonate (Oyster Shell 500 mg PO BID 07/24/25 Unknown History Calcium) calcium polycarbophil 625 mg 625 mg PO .four times daily PRN 07/24/25 Unknown History tablet (Fiber-Lax) constipation diclofenac sodium 1 % topical gel 2.25 inch topical ONCE 07/24/25 Unknown History lidocaine 4 % topical patch 1 patch topical QDAY PRN pain 07/24/25 Unknown History magnesium hydroxide 400 mg/5 mL 15 ml PO BID PRN constipation 07/24/25 Unknown History oral suspension (Milk of Magnesia) tizanidine 2 mg capsule 4 mg PO DAILY 07/24/25 Unknown History tizanidine 6 mg capsule 6 mg PO QHS 07/24/25 Unknown History BIPAP -Bilevel Positive Airway 08/09/25 Unknown History Pressure ([facility] INFORMATIONAL USE ONLY) albuterol sulfate 90 mcg/actuation inhalation 08/31/25 Unknown History aerosol inhaler fluticasone propionate 50 2 spray intranasal DAILY PRN 08/31/25 Unknown History mcg/actuation nasal allergy symptoms spray,suspension (24 Hour Allergy Relief) Allergy/AdvReac Type Severity Reaction Status Date / Time rimegepant (From [facility] ODT) Allergy Severe Pain in Verified 08/31/25 14:47 joints lithium Allergy Mild Vomiting Verified 08/31/25 14:47 propantheline Allergy Unknown unknown Verified 08/31/25 14:47 ziprasidone (From Geodon) Allergy Unknown unknown Verified 08/31/25 14:47 aspartame Allergy Itching Verified 08/31/25 14:47 carrot Allergy Food Verified 08/31/25 14:47 Allergy ciclesonide (From [place]ves[place]) Allergy Shortness Verified 08/31/25 14:47 of breath diphenhydramine (From Allergy Other Verified 08/31/25 14:47 Benadryl) diphenhydramine HCl (From Allergy Rash Verified 08/31/25 14:47 Benadryl) imipramine Allergy Other Verified 08/31/25 14:47 levofloxacin (From Levaquin) Allergy Itching Verified 08/31/25 14:47 onabotulinumtoxinA (From Allergy Itching Verified 08/31/25 14:47 Botox) Penicillins Allergy Rash Verified 08/31/25 14:47 Seasonal Allergies: Uncoded Allergy NEEDS Verified 08/31/25 14:47 (environmental) FOLLOW-UP Sulfa (Sulfonamide Allergy NEEDS Verified 08/31/25 14:47 Antibiotics) FOLLOW-UP sulfamethoxazole (From Allergy NEEDS Verified 08/31/25 14:47 Bactrim) FOLLOW-UP topiramate (From Topamax) Allergy Other Verified 08/31/25 14:47 trimethoprim (From Bactrim) Allergy NEEDS Verified 08/31/25 14:47 FOLLOW-UP baclofen AdvReac Severe vomitting Verified 08/31/25 14:47 erythromycin base AdvReac Severe chest pain Verified 08/31/25 14:47 fentanyl AdvReac Severe Vomiting Verified 08/31/25 14:47 lubiprostone (From Amitiza) AdvReac Severe Vomiting Verified 08/31/25 14:47 ondansetron (From Zofran) AdvReac Severe Vomiting Verified 08/31/25 14:47 oxycodone AdvReac Severe vomitting Verified 08/31/25 14:47 oxymorphone AdvReac Severe ABD pain Verified 08/31/25 14:47 and vomiting pregabalin (From Lyrica) AdvReac Severe eyes would Verified 08/31/25 14:47 stay closed codeine AdvReac nausea Verified 08/31/25 14:47 lurasidone AdvReac Pain in Verified 08/31/25 14:47 joints sertraline (From Zoloft) AdvReac serotoin Verified 08/31/25 14:47 syndrome valbenazine (From Ingrezza) AdvReac Other Verified 08/31/25 14:47 Family History Sister CVA (cerebral vascular accident) Afib Heart disease Liver disease Brother Colon cancer Father Emphysema lung Surgical History H/O shoulder replacement Hx of cholecystectomy History of appendectomy History of carpal tunnel release History of total right knee replacement History of total left knee replacement Social History adopted: No housing: assisted living facility current occupational status: disabled pets and animals: No Smoking Status: Never smoker alcohol intake: never substance use type: does not use ROS Constitutional Constitutional: Denies fatigue, fever(s), poor appetite, weight gain or weight loss Gastrointestinal Gastrointestinal: Denies belching, bloating, change in bowel habits, change in stool character, chewing difficulty, coffee ground emesis, constipation, cramping, diarrhea, dyspepsia, dysphagia, early satiety, excessive flatus, fecal incontinence, heartburn, hematemesis, hematochezia, hemorrhoids, loose stools, melena, nausea, odynophagia, rectal bleeding, tenesmus, vomiting or weight changes Physical Exam Const alert, oriented x3, no apparent distress and healthy appearing General Appearance: cooperative GI normal to inspection, nondistended, normoactive bowel sounds, soft to palpation, non-tender and non-distended Percussion: normal to percussion Rectal Exam: deferred Assessment & Plan Assessment/Plan (1) Gastroparesis: (2) Hiatal hernia: PLAN: Assessment and Plan Assessment and Plan (1) Gastroparesis: Status: Chronic Plan: Paz is a 70-year-old female patient here today for follow-up regarding her epigastric pain. Patient was diagnosed with gastroparesis at her last appointment after having a 4-hour gastric emptying study. Patient was given diet instructions to avoid large meals and eat small meals frequently. She has been doing her best to follow this. She denies any nausea or vomiting. Patient complains mostly of epigastric pain. In the past she has had gastric ulcers but is unable to take PPIs H2 blockers or sucralfate due to side effects. Last EGD in March 2024 with oozing gastric ulcers. Patient has not yet had a repeat to assess for healing. She was scheduled for this today. Since her main complaint is not nausea or vomiting after meals this leads me to believe her symptoms are not from gastroparesis. She will undergo EGD for further assessment. Patient also having looser stools recently. Advise she increase her fiber intake. Last colonoscopy was in 2023 with no inflammation but she did have a 19 mm tubular adenoma polyp. Recommendation per Dr. Canas was to repeat in 5 years. With family history and size of the tubular adenoma she may decide to repeat in 3 years. - EGD - Continue small frequent meals - Follow-up after procedure Note: [employer] speech recognition rough and trueing machine operator software was used to create portions of this document. Sound-alike and misspelled words, as well as other rough and trueing machine operator errors may be contained in the documentation. (2) Hiatal hernia: Status: Chronic (3) FH: colon cancer: Status: Acute]
[2025-09-06] MEDS: Lactated Ringers 1,000 ML 15 ML IV (09:31)
--- NOTE | 2025-09-06 09:43 | PCM.PRE.AN2 ---
ASA Classification* ASA Classification ASA Classification: 3 (JOSSELINE (on BIPAP), GERD, Asthma, tardive diskynesia, cerebral palsy. ALLERGIC TO FENTANYL) Assessment & Plan Anesthesia* Anesthesia Assessment Anesthesia Assessment: Discussed sedation and/or anesthesia options, risks, benefits, and alternatives with patient/parents/legal guardian/POA. Questions invited. The patient/parents/legal guardian/POA seems to understand and agrees to proceed with anesthesia plan. Reviewed the physical assessment, medical history, allergy history and patient home medications list prior to surgery/procedure/anesthetic and documented any changes. Performed airway and anesthesia risk assessments. Anesthesia Type Anesthesia Type: MAC Anesthesia Focused Assessment* Temperature: 98 F Pulse Rate: 65 Blood Pressure: 150/93 Respiratory Rate: 16 Pulse Ox: 99 Oxygen Delivery Method: Room Air Airway Assessment Mouth opens: >3 cm Mallampati Score: III Teeth Condition: Missing Neck Range of motion (ROM): Full ROM Labs Anesthesia Preop lab: CBC WBC, (4.4-11.0) 5.2 K/mm3 07/12/25, 05:40 RBC, (4.2-5.4) 3.66 M/mm3 L 07/12/25, 05:40 Hgb, (12.0-15.0) 11.9 g/dL L 07/12/25, 05:40 Hct, (37-47) 35.8 % L 07/12/25, 05:40 Plt Count, (150-450) 222 K/mm3 07/12/25, 05:40 CHEMISTRY Potassium, (3.3-5.1) 4.6 mmol/L 03/14/25, 08:12 Sodium, (133-145) 137 mmol/L 03/14/25, 08:12 Magnesium, (1.6-2.6) 1.7 mg/dL 07/21/24, 22:10 Phosphorus, (2.5-4.9) 3.8 mg/dL 07/21/24, 22:10 BUN, (4-19) 13 mg/dL 03/14/25, 08:12 Creatinine, (0.70-1.20) 0.80 mg/dL 03/14/25, 08:12 Glucose, (70-99) 84 mg/dL 03/14/25, 08:12 POC Glucose, (70-110) 92 mg/dL 03/24/21, 22:09 TSH, (0.300-4.200) 4.230 uIU/mL H 03/14/25, 08:12 COAG PT, (11.7-14.9) 14.9 SECONDS 07/21/24, 22:10 Pre-Assessment Diagnosis/Proposed Procedure Planned Operative Procedure(s): EGD Anesthesia History Anesthesia History - cutting machine tender decorative: Anesthesia History - cutting machine tender decorative Hx Hospitalization Yes: shoulder replacement 08/31/25 15:14 Any Problems With Anesthesia No 08/31/25 15:14 Cholinesterase deficiency No 08/31/25 15:14 You/Your Family Experience No 08/31/25 15:14 fever (hyperthermia) with Relationship Recent Exposure to Contagious No 09/06/25 09:28 Disease Does patient have nerve No 08/31/25 15:14 stimulator Patient instructed to have device shut off --Does patient have Pacemaker No 09/06/25 09:28 or ICD? When Was Last Pacemaker Check QUESTION #4 FULL TEXT: You/Your Family Experience fever (hyperthermia) with Anesthesia Last Oral Intake Last Oral intake: Last Oral Intake NPO since 23:00 09/06/25 09:28 Meds taken in AM with sips of water? Meds patient instructed to take am of surgery PONV PONV - cutting machine tender decorative: PONV - cutting machine tender decorative Female Yes 08/31/25 15:14 HX of Motion Sickness Yes 08/31/25 15:14 HX of N/V After Surgery No 08/31/25 15:14 Non-Smoker Yes 08/31/25 15:14 Duration of Surgery greater No 08/31/25 15:14 than 60 minutes Number of Risk Factors 3 08/31/25 15:14 PONV Score Moderate Risk 08/31/25 15:14 Height & Weight Height & Weight: Anesthesia: Height & Weight Height 5 ft 3 in 09/06/25 09:28 Weight: 87 kg 09/06/25 09:28 Body Mass Index (BMI) 34.0 09/06/25 09:28 Respiratory Assessment Respiratory Assessment - cutting machine tender decorative: Respiratory Tract Infection Hx - cutting machine tender decorative Hx Respiratory Tract Infection No 08/31/25 15:14 STOP Sleep Apnea STOP Sleep Apnea - cutting machine tender decorative: STOP Sleep Apnea - cutting machine tender decorative Hx Hypertension Yes 08/31/25 15:14 Hx Sleep Apnea Yes 08/31/25 15:14 CPAP No 08/31/25 15:14 BIPAP Yes 08/31/25 15:14 Do you snore loudly (louder than talking or can be heard Do you often feel tired/ fatigued/ sleepy during daytime? Has anyone observed you stop breathing during sleep? STOP Results Positive 08/31/25 15:14 QUESTION #5 FULL TEXT : Do you snore loudly (louder than talking or can be heard through closed doors)? 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 Specify any problems Hx of Preganancy in last 3 No 08/31/25 15:14 Months Nurse Filling Out Transfusion JZOLLINGE 08/31/25 15:14 & Questions: Date: 08/31/25 08/31/25 15:14 Time: 15:18 08/31/25 15:14 Patient unable to answer at this time (ie. confused, unrespo /Reproduction History /Reproductive History - cutting machine tender decorative: /Reproductive Hx- cutting machine tender decorative Hx Now No 08/31/25 15:14 Gestational Age (in weeks): EDC: Hx Hx Para Hx Section SAB No 08/31/25 15:14 Does the father of the baby or his family experience fever w Father of the baby Malignant Hypertension history comment Active Medications Active Medications: Current Medications Generic Name Dose Route Start Last Admin Trade Name Freq PRN Reason Stop Dose Admin Lactated Ringer's 1,000 mls @ 15 mls/hr 09/06/25 09:15 09/06/25 09:31 IV 15 mls/hr .Q48H ROSLYN Administration [facility] Medical History Uses walker Wears glasses Wears dentures Dietary restriction History of hiatal hernia History of ulceration BiPAP (biphasic positive airway pressure) dependence Sleep apnea Tardive dyskinesia Anxiety and depression CKD (chronic kidney disease), stage II Lives in assisted living facility Scoliosis Left rotator cuff tear Bipolar 1 disorder, depressed Primary osteoarthritis, left shoulder Left rotator cuff tear Peripheral vascular disease Kyphosis GERD (gastroesophageal reflux disease) Migraine Asthma Irritable bowel Hypercholesteremia Anemia Hyperlipidemia Hypertension Bipolar 1 disorder Fibromyalgia Hypothyroid Cerebral palsy Home Medications Medication Instructions Recorded Last Taken Type fluticasone propionate 50 2 spray NASAL DAILY congestion 01/03/16 03/24/21 History mcg/actuation nasal spray,suspension aspirin 81 mg chewable tablet 81 mg PO DAILY heart health 12/16/17 03/24/21 History multivitamin 1 ea PO DAILY supplement 12/02/18 09/03/25 History polyethylene glycol 3350 17 gram 17 g PO DAILY bowels 06/22/19 03/22/21 History oral powder packet promethazine 25 mg tablet 25 mg PO Q6H PRN PRN Nausea 01/07/21 03/23/21 History clopidogrel 75 mg tablet (Plavix) 75 mg PO DAILY antiplatelet 02/15/22 09/03/25 History nystatin 100,000 unit/gram topical 1 applic topical DAILY PRN SKIN 06/17/22 Unknown History powder ferrous sulfate 325 mg (65 mg 325 mg PO DAILY supplement 09/07/22 Unknown History iron) tablet cholecalciferol (vitamin D3) 50 50 mcg PO DAILY supplement 12/03/22 Unknown History mcg (2,000 unit) capsule rosuvastatin 5 mg tablet 5 mg PO QHS cholesterol 05/31/23 Unknown History lamotrigine 100 mg tablet 100 mg PO QHS seizures 01/24/24 03/30/24 History magnesium oxide 400 mg PO DAILY supplement 03/21/24 03/29/24 History tizanidine 4 mg tablet 4 mg PO DAILY muscle relaxer 07/21/24 Unknown History hydroxyzine pamoate 25 mg capsule 25 mg PO BID anxiety #60 caps 08/08/24 Unknown Rx docusate sodium 100 mg capsule 100 mg PO QDAY PRN constipation 09/22/24 Unknown History (Colace) acetaminophen 500 mg tablet 1,000 mg PO BID 12/08/24 Unknown History cyanocobalamin (vitamin B-12) 1,000 mcg IM QMONTH 12/08/24 Unknown History 1,000 mcg/mL injection solution hydrocodone-acetaminophen 5-325mg 1 tab PO TID 12/08/24 Unknown History 5mg-325mg hydrocortisone 2.5 % topical cream 1 applic topical TID PRN pain 12/08/24 Unknown History lamotrigine 200 mg tablet 200 mg PO BID 12/08/24 Unknown History levothyroxine 75 mcg tablet 75 mcg PO DAILY 12/08/24 09/06/25 History (Synthroid) losartan 25 mg tablet 25 mg PO QDAY blood pressure 12/08/24 Unknown History meclizine 12.5 mg tablet 12.5 mg PO QDAY PRN dizziness 12/08/24 Unknown History vit C 250 mg-vit E 90 mg-zinc 40 1 tab PO BID 12/08/24 Unknown History mg-copper 1 uz-kyefyx-dibcpk capsule (PreserVision AREDS-2) gabapentin 400 mg capsule 400 mg PO TID 01/17/25 Unknown History ftgebfnoij-rdbzzusbhzjto-oprcvxyt 1 tab PO .qd PRN pain 03/13/25 Unknown History 50 mg-325 mg-40 mg tablet ibandronate 150 mg tablet 150 mg PO QMONTH 06/07/25 Unknown History losartan 50 mg tablet 50 mg PO QDAY 06/07/25 Unknown History potassium chloride 10 mEq 10 meq PO BID 07/18/25 Unknown History capsule,extended release sumatriptan succinate 25 mg tablet 25 mg PO .qd PRN migraine headache 07/18/25 Unknown History tetrabenazine 25 mg tablet 25 mg PO BID 07/18/25 Unknown History calcium carbonate (Oyster Shell 500 mg PO BID 07/24/25 Unknown History Calcium) calcium polycarbophil 625 mg 625 mg PO .four times daily PRN 07/24/25 Unknown History tablet (Fiber-Lax) constipation diclofenac sodium 1 % topical gel 2.25 inch topical ONCE 07/24/25 Unknown History lidocaine 4 % topical patch 1 patch topical QDAY PRN pain 07/24/25 Unknown History magnesium hydroxide 400 mg/5 mL 15 ml PO BID PRN constipation 07/24/25 Unknown History oral suspension (Milk of Magnesia) tizanidine 2 mg capsule 4 mg PO DAILY 07/24/25 Unknown History tizanidine 6 mg capsule 6 mg PO QHS 07/24/25 Unknown History BIPAP -Bilevel Positive Airway 08/09/25 Unknown History Pressure ([facility] USE ONLY) albuterol sulfate 90 mcg/actuation 2 inh inhalation Q6H PRN shortness 08/31/25 Unknown History aerosol inhaler of breath or wheezing fluticasone propionate 50 2 spray intranasal DAILY PRN 08/31/25 Unknown History mcg/actuation nasal allergy symptoms spray,suspension (24 Hour Allergy Relief) Allergy/AdvReac Type Severity Reaction Status Date / Time rimegepant (From [facility] ODT) Allergy Severe Pain in Verified 09/06/25 09:26 joints lithium Allergy Mild Vomiting Verified 09/06/25 09:26 propantheline Allergy Unknown unknown Verified 09/06/25 09:26 ziprasidone (From Geodon) Allergy Unknown unknown Verified 09/06/25 09:26 aspartame Allergy Itching Verified 09/06/25 09:26 carrot Allergy Food Verified 09/06/25 09:26 Allergy ciclesonide (From [place]) Allergy Shortness Verified 09/06/25 09:26 of breath diphenhydramine (From Allergy Other Verified 09/06/25 09:26 Benadryl) diphenhydramine HCl (From Allergy Rash Verified 09/06/25 09:26 Benadryl) imipramine Allergy Other Verified 09/06/25 09:26 levofloxacin (From Levaquin) Allergy Itching Verified 09/06/25 09:26 onabotulinumtoxinA (From Allergy Itching Verified 09/06/25 09:26 Botox) Penicillins Allergy Rash Verified 09/06/25 09:26 Seasonal Allergies: Uncoded Allergy NEEDS Verified 09/06/25 09:26 (environmental) FOLLOW-UP Sulfa (Sulfonamide Allergy NEEDS Verified 09/06/25 09:26 Antibiotics) FOLLOW-UP sulfamethoxazole (From Allergy NEEDS Verified 09/06/25 09:26 Bactrim) FOLLOW-UP topiramate (From Topamax) Allergy Other Verified 09/06/25 09:26 trimethoprim (From Bactrim) Allergy NEEDS Verified 09/06/25 09:26 FOLLOW-UP baclofen AdvReac Severe vomitting Verified 09/06/25 09:26 erythromycin base AdvReac Severe chest pain Verified 09/06/25 09:26 fentanyl AdvReac Severe Vomiting Verified 09/06/25 09:26 lubiprostone (From Amitiza) AdvReac Severe Vomiting Verified 09/06/25 09:26 ondansetron (From Zofran) AdvReac Severe Vomiting Verified 09/06/25 09:26 oxycodone AdvReac Severe vomitting Verified 09/06/25 09:26 oxymorphone AdvReac Severe ABD pain Verified 09/06/25 09:26 and vomiting pregabalin (From Lyrica) AdvReac Severe eyes would Verified 09/06/25 09:26 stay closed codeine AdvReac nausea Verified 09/06/25 09:26 lurasidone AdvReac Pain in Verified 09/06/25 09:26 joints sertraline (From Zoloft) AdvReac serotoin Verified 09/06/25 09:26 syndrome valbenazine (From Ingrezza) AdvReac Other Verified 09/06/25 09:26 Family History Sister CVA (cerebral vascular accident) Afib Heart disease Liver disease Brother Colon cancer Father Emphysema lung Surgical History H/O shoulder replacement Hx of cholecystectomy History of appendectomy History of carpal tunnel release History of total right knee replacement History of total left knee replacement Social History adopted: No housing: assisted living facility current occupational status: disabled pets and animals: No Smoking Status: Never smoker alcohol intake: never substance use type: does not use Review of Systems (Anesthesia) ROS Narrative System reviewed and no additional complaints, except as documented.
--- NOTE | 2025-09-06 10:55 | OP.PROVAT_ITS ---
09/06/2025 Alex Self Re : Upper GI endoscopy procedure for Paz Rosales Dear Aramis This procedure was performed on September. My impressions and recommendations are as follows: Impressions : - Normal esophagus. - Large hiatal hernia. - Oozing gastric ulcer with a visible vessel. Clips were placed. Clip senior accounting specialist: Chain. Treated with argon plasma coagulation (APC). - Normal [Site]. - No specimens collected. Recommendations : - Discharge patient to home. - Resume previous diet. - Continue present medications. My findings are described in the full procedure note, which is enclosed. If I can be of further assistance, please feel free to contact me at . Sincerely, Santiago Canas, 09/06/2025 10:54:45 AM This report has been signed electronically.
--- NOTE | 2025-09-06 10:55 | OP.EGD_ITS ---
Patient Name: Paz Rosales Procedure Date: 09/06/2025 10:10 AM Date of : 1955 Age: 70 Procedure: Upper GI endoscopy Indications: Iron deficiency anemia, Peptic ulcer Providers: Santiago Canas DO Referring MD: Alex Self Medicines: Monitored Anesthesia Care Patient Profile: This is a 70 year old female. Refer to note in patient chart for documentation of history and physical. Patient has symptoms. Her most recent EGD for treatment of bleeding and EGD for ulcer treatment. Complications: No immediate complications. Procedure: Pre-Anesthesia Assessment: - Prior to the procedure, a History and Physical was performed, and patient medications and allergies were reviewed. The patient is competent. The risks and benefits of the procedure and the sedation options and risks were discussed with the patient. All questions were answered and informed consent was obtained. Patient identification and proposed procedure were verified by the physician in the pre-procedure area. Mental Status Examination: alert and oriented. Airway Examination: normal oropharyngeal airway and neck mobility. Respiratory Examination: clear to auscultation. CV Examination: normal. Prophylactic Antibiotics: The patient does not require prophylactic antibiotics. Prior Anticoagulants: The patient has taken no anticoagulant or antiplatelet agents except for NSAID medication. ASA Grade Assessment: II - A patient with mild systemic disease. After reviewing the risks and benefits, the patient was deemed in satisfactory condition to undergo the procedure. The anesthesia plan was to use monitored anesthesia care (MAC). Immediately prior to administration of medications, the patient was re-assessed for adequacy to receive sedatives. The heart rate, respiratory rate, oxygen saturations, blood pressure, adequacy of pulmonary ventilation, and response to care were monitored throughout the procedure. The physical status of the patient was re-assessed after the procedure. After obtaining informed consent, the endoscope was passed under direct vision. Throughout the procedure, the patient's blood pressure, pulse, and oxygen saturations were monitored continuously. The gastroscope was introduced through the mouth, and advanced to the fourth part of the duodenum. Small bowel enteroscopy was deemed necessary. The upper GI endoscopy was accomplished without difficulty. The patient tolerated the procedure well. Moderate Sedation: Moderate (conscious) sedation was administered by the nurse and supervised by the endoscopist. The following parameters were monitored: oxygen saturation, heart rate, blood pressure, and response to care. Total physician intraservice time was 15 minutes. Scope In: 10:26:01 AM Scope Out: 10:43:04 AM Total Procedure Duration Time 0 hours 17 minutes 3 seconds Findings: The examined esophagus was normal. A large hiatal hernia was present. One oozing gastric ulcer with a visible vessel was found in the gastric body. The lesion was 15 mm in largest dimension. For hemostasis, two hemostatic clips were successfully placed. Clip cement patcher: Mobjoy. There was no bleeding at the end of the procedure. Coagulation for hemostasis using argon plasma at 0.5 liters/minute and 20 dunbar was successful. The [Site] was normal. Impression: - Normal esophagus. - Large hiatal hernia. - Oozing gastric ulcer with a visible vessel. Clips were placed. Clip cement patcher: Mobjoy. Treated with argon plasma coagulation (APC). - Normal [Site]. - No specimens collected. Recommendation: - Discharge patient to home. - Resume previous diet. - Continue present medications. Procedure Code(s): --- Professional --- 64933, Small intestinal endoscopy, enteroscopy beyond second portion of duodenum, not including ileum; with control of bleeding (eg, injection, bipolar cautery, unipolar cautery, laser, heater probe, stapler, plasma reagent tender helper) 08245, 59, Moderate sedation services provided by the same physician or other qualified health cattle care worker performing the diagnostic or therapeutic service that the sedation supports, requiring the presence of an independent trained observer to assist in the monitoring of the patient's level of consciousness and physiological status; initial 15 minutes of intraservice time, patient age 5 years or older CPT copyright 2021 [employer]. All rights reserved. The codes documented in this report are preliminary and upon automatic toe laster review may be revised to meet current compliance requirements. Santiago Canas DO 09/06/2025 10:54:45 AM This report has been signed electronically. Number of Addenda: 0 Note Initiated On: 09/06/2025 10:10 AM
--- NOTE | 2025-09-06 10:59 | PCM.POST.ANE ---
Anesthesia: Postop Eval I Current Vital Signs Temperature: 97.8 F Pulse Rate: 62 Blood Pressure: 118/67 Respiratory Rate: 16 Pulse Ox: 97 Oxygen Delivery Method: Room Air Assessment Airway patent: Yes Spontaneous unlabored respirations: Yes Mental status: Awake and Calm nausea: No Vomiting: No Anesthesia Complication: No Fluid Hydration Crystalloid volume administer (ml): 400 Total IV fluid infused: 400 Progress Note Anesthesia document: Postop Eval 1 completed: Yes
--- NOTE | 2025-09-06 11:30 | PCM.POSTANE2 ---
Anesthesia Postop Eval I Sum Postop Eval Completion status Anesthesia document: Postop Eval 1 completed: Yes Anesthesia Postop Eval I Summary Anesthesia Postop Eval I Summary: Anesthesia Postop Eval I: Assessment Summary Airway patent Yes 09/06/25 10:59 [email or web address] Spontaneous unlabored Yes 09/06/25 10:59 [email or web address] respirations Mental status Awake,Calm 09/06/25 10:59 [email or web address] nausea No 09/06/25 10:59 [email or web address] Vomiting No 09/06/25 10:59 [email or web address] Anesthesia Postop Eval I: Fluid Summary Crystalloid volume administer 400 09/06/25 10:59 [email or web address] (ml) Colloids volume administered ( ml) Blood Product volume administered (ml) Total IV fluid infused 400 09/06/25 10:59 [email or web address] Anesthesia Postop Eval I: Summary Notes Anesthesia Complication No 09/06/25 10:59 [email or web address] Anesthesia Complication Comment: Post-operative progress note Anesthesia: Postop Eval II Evaluation Mental status: Awake Pain Level: 0 nausea: No Vomiting: No Complications Anesthesia Complication: No
== END 2025-09-06 11:38 | disposition home or self-care (01) ==
LOC: EN 09:04 → AC 09:06
PROVIDERS: PCP Family Medicine; Referring Provider Family Medicine; Visit Provider Internal Medicine Gastroenterology
DX: K31.84 Gastroparesis (principal); K44.9 Diaphragmatic hernia without obstruction or gangrene; Z79.890 Hormone replacement therapy; K58.9 Irritable bowel syndrome, unspecified; E78.00 Pure hypercholesterolemia, unspecified; N18.2 Chronic kidney disease, stage 2 (mild); I12.9 Hypertensive chronic kidney disease with stage 1 through stage 4 chronic kidney disease, or unspecified chronic kidney disease; D50.9 Iron deficiency anemia, unspecified; Z79.83 Long term (current) use of bisphosphonates; Z80.0 Family history of malignant neoplasm of digestive organs; J45.909 Unspecified asthma, uncomplicated; Z79.51 Long term (current) use of inhaled steroids; G47.30 Sleep apnea, unspecified; Z99.81 Dependence on supplemental oxygen; Z79.82 Long term (current) use of aspirin; Z79.02 Long term (current) use of antithrombotics/antiplatelets; Z79.899 Other long term (current) drug therapy; E03.9 Hypothyroidism, unspecified; Z96.619 Presence of unspecified artificial shoulder joint; Z90.49 Acquired absence of other specified parts of digestive tract; Z96.653 Presence of artificial knee joint, bilateral; K25.4 Chronic or unspecified gastric ulcer with hemorrhage
CPT/HCPCS: 43255; C1889; J2405

== ENCOUNTER → 2025-09-13 | Outpatient (REF) | payer MEDICARE, MEDICAID, SELFPAY ==
--- OUTSIDE RECORDS SUMMARY | 2025-09-13 03:24 | XMS RPT_ITS | CCD ---
Author Organization [facility] CliniSymd Care Team Providers Care Pipe [employer]vers Supervisor Name Role Phone Anastasiya Lovett N Unavailable Anastasiya Lovett N Unavailable Anastasiya Lovett N Unavailable Marcio Self Primary Care Provider [phone] Marcio Self Primary Care Provider [phone] MARCIO SELF MD Primary Care Physician [place] PT, Roselia Unavailable Unavailable Dr. Marcio Self Primary Care Provider Dr. Marcio Self Referring Provider Dr. Justice Montelongo Attending Provider [phone] Dr. Stuart Hernandez Attending Provider Dr. Justice Montelongo Referring Provider [phone] Dr. Marcio Self Primary Care Provider Dr. Marcio Self Referring Provider Dr. Justice Montelongo Attending Provider Dr. Stuart Hernandez Attending Provider Dr. Eros Pinto Emergency Provider Dr. Marcela Wagner Admit Provider Dr. Marcela Wagner Attending Provider Dr. Marcela Wagner Other Provider Dr. Ziyad Winter Attending Provider Dr. Heidi Curtis Attending Provider Dr. Corey Salcido Other Provider Unavailable Dr. Heidi Curtis Other Provider Sarina Delgadillo Attending Provider Unavailable Dr. Corey Salcido Attending Provider Unavailable Dr. Corey Salcido Referring Provider Unavailable Dr. Marcio Self Primary Care Provider [phone] Dr. Marcio Self Referring Provider Dr. Justice Montelongo Attending Provider MD Ke Crowder Attending Provider Dr. Stuart Hernandez Attending Provider Payton CORE MICROARCHITECT, CORE MICROARCHITECT-C Beena Hylton Attending Provider Marcio Self Unavailable Unavailable Unavailable Dilcia Bobby Attending Unavailable Dr. Marcio Self Primary Care Unavail able Dr. Marcio Self Referring Unavail able Dilcia Bobby Attending Unavailable Dr. Marcio Self Primary Care Unavail HEIDI Huitron Referring Unavailable HEIDI CHAMBERS Attending Unavailable MARCIO SELF Primary Care Unavailable MARCIO SELF MD Primary Care Unavailable HEIDI NG MD Attending Unavailable HEIDI NG MD Attending Unavailable MARCIO SELF MD Primary Care Unavailable HEIDI NG MD Attending Unavailable MARCIO SELF MD Primary Care Unavailable MARCIO SELF MD Attending Unavailable MARCIO SELF MD Primary Care Unavailable DANII PIERRE MD Attending Unavailable MARCIO SELF MD Primary Care Unavailable DANII PIERRE MD Attending Unavailable MARCIO SELF MD Primary Care Unavailable MARCIO SELF MD Primary Care Unavailable BALDO CASEY Attending Unavailable MARCIO SELF MD Primary Care Unavailable MARCIO SELF MD Attending Unavailable MARCIO SELF MD Attending Unavailable MARCIO SELF MD Primary Care Unavailable HEIDI NG MD Attending Unavailable MARCIO SELF MD Primary Care Unavailable Unavailable Primary Care Provider Unavailabl e Marcio Self Primary Care Provider [phone] MARCIO SELF MD Primary Care Unavailable KEVIN SANCHEZ MD Unavailanny e ABRAN LYNN, ANISA Admitting Unavail able ABRAN LYNN, ANISA Attending Unavail able DANIELLE JEFFREY MD Unavailable KARTHIKEYAN, ROBBY Attending Unavailable SELF, MARCIO Primary Care Unavailable BAVSHIRA, ROBBY Attending Unavailable KARTHIKEYAN, ROBBY Referring Unavailable SELF, MARCIO Primary Care Unavailable BAVSHIRA, ROBBY Attending Unavailable SELF, MARCIO Primary Care Unavailable BAVSHIRA, ROBBY Attending Unavailable SELF, MARCIO Primary Care Unavailable BAVSHIRA, ROBBY Attending Unavailable SELF, MARCIO Primary Care Unavailable BAVSHIRA, ROBBY Attending Unavailable SELF, MARCIO Primary Care Unavailable BAVSHIRA, ROBBY Attending Unavailable KARTHIKEYAN, ROBBY Referring Unavailable SELF, MARCIO Primary Care Unavailable BAVSHIRA, ROBBY Attending Unavailable KARTHIKEYAN, ROBBY Referring Unavailable SELF, MARCIO Primary Care Unavailable EMILIA BERGERON Attending Unavailable KARTHIKEYAN, ROBBY Referring Unavailable BONNIE, MARCIO Primary Care Unavailable MARCIO SELF MD Primary Care Unavailable ENRIKE GRANT PA-C Attending Unavailable ABRAN LYNN, ANISA Attending Unavail able MARCIO SELF MD Primary Care Unavailable MARCIO SELF MD Primary Care Unavailable BOB MOSELEY Attending Unavailable MARCIO SELF MD Primary Care Unavailable BALDO CASEY MD Attending Unavailable MARCIO SELF MD Primary Care Unavailable ABRAN LYNN, ANISA Attending Unavail able ABRAN LYNN, ANISA Attending Unavail able MARCIO SELF MD Primary Care Unavailable PHANI SAMAYOA PA-C Attending Unavail able MARCIO SELF MD Primary Care Unavailable TRINIDAD GARNICA DO Attending Unavailable MARCIO SELF MD Primary Care Unavailable MARCIO SELF MD Attending Unavailable MARCIO SELF MD Primary Care Unavailable ROBBY NAPIER JR, MD Attending Unavailable MARCIO SELF MD Primary Care Unavailable REGI LYNN, DR JHONATHAN Kingsley Attending UnavailMARCIO Still MD Primary Care Unavailable MARCIO SELF MD Primary Care Unavailable MARCIO SELF MD Attending Unavailable MARCIO SELF MD Primary Care Unavailable MARCIO SELF MD Attending Unavailable MARCIO SELF MD Primary Care Unavailable BOB BUENROSTRO Attending Unavail able Moni Peñaloza Attending Unavailable Marcio Self Primary Care Unavailable Marcio Self Primary Care Unavailable Friend, Santiago Referring Unavailable Friend, Santiago Attending Unavailable Marcio Self Primary Care Unavailable Lilia Hale Attending Unavailable Lilia Hale Attending Unavailable Self, Marcio Primary Care Unavailable Self, Marcio Referring Unavailable Self, Marcio Attending Unavailable Self, Marcio Primary Care Unavailable [facility] Attending Unavailable Self, Marcio Primary Care Unavailable Self, Marcio Primary Care Unavailable Self, Marcio Attending Unavailable Jhonathan Reed Attending Unavailable Self, Marcio Primary Care Unavailable Nova, Baldo Attending Unavailable Nova, Baldo Referring Unavailable Self, Marcio Primary Care Unavailable Lilia Hale Referring Unavailable Lilia Hale Attending Unavailable Self, Marcio Primary Care Unavailable Ke Crowder Attending Unavailable Self, Marcio Primary Care Unavailable Self, Marcio Referring Unavailable Self, Marcio Primary Care Unavailable eK Crowder Attending Unavailable Self, Marcio Referring Unavailable Marcio Judd Attending Unavailable Self, Marcio Primary Care Unavailable Self, Marcio Primary Care Unavailable Justice Montelongo Attending Unavailable Self, Marcio Referring Unavailable Self, Marcio Primary Care Unavailable Friend, Santiago Attending Unavailable Self, Marcio Referring Unavailable Friend, Santiago Attending Unavailable Friend, Santiago Referring Unavailable Self, Marcio Primary Care Unavailable Friend, Santiago Referring Unavailable Friend, Santiago Attending Unavailable Self, Marcio Primary Care Unavailable Self, Marcio Primary Care Unavailable Friend, Santiago Attending Unavailable Self, Marcio Referring Unavailable Self, Marcio Primary Care Unavailable Friend, Santiago Attending Unavailable FriendSantiago Consulting Unavailable Self, Marcio Referring Unavailable Lilia Hale Referring Unavailable Austin Galan Attending Unavailable Self, Marcio Primary Care Unavailable Lilia Hale Attending Unavailable Self, Marcio Referring Unavailable Self, Marcio Primary Care Unavailable Self, Marcio Primary Care Unavailable Self, Marcio Attending Unavailable Self, Marcio Primary Care Unavailable [facility] Attending Unavailable Self, Marcio Primary Care Unavailable [facility] Attending Unavailable Self, Marcio Primary Care Unavailable Marcio Judd Attending Unavailable Lilia Hale Referring Unavailable Lilia Hale Attending Unavailable Self, Marcio Primary Care Unavailable Self, Marcio Referring Unavailable Self, Marcio Primary Care Unavailable Melia Kearns Attending Unavailable Self, Marcio Primary Care Unavailable Marcio Judd Attending Unavailable Lilia Hale Attending Unavailable Self, Marcio Referring Unavailable Self, Marcio Primary Care Unavailable Marcio Judd Attending Unavailable Self, Marcio Primary Care Unavailable Marcio Self Primary Care Unavailable Deborah Leyva Attending Unavailable Marcio Self Referring Unavailable Comment on above: Order Comment: 182 Performed By: #### L 100.0500, L503.0105, L500.4050, L506.0400, L503.6550, L506.1000, L500.4100, L501.46512, L501.9520 ####[facility] [address] [place], [address] AST [Catalytic activity/Vol] 18 U/L Normal 15-37 [facility] Comment on above: Order Comment: 182 Performed By: #### L 100.0500, L503.0105, L500.4050, L506.0400, L503.6550, L506.1000, L500.4100, L501.60796, L501.9520 ####[facility] [address] [place], [address] Bilirubin [Mass/Vol] 0.50 mg/dL Normal 0.20-1.00 [facility] Comment on above: Order Comment: 182 Result Comment: For patients on eltrombopag therapy, use of Dimension Constantine TBIL is not recommended. Performed By: #### L 100.0500, L503.0105, L500.4050, L506.0400, L503.6550, L506.1000, L500.4100, L501.98662, L501.9520 ####[facility] [address] [place], [address] BUN/CRE 13.8 RATIO Normal 10-20 [facility] Comment on above: Order Comment: 182 Performed By: #### L 100.0500, L503.0105, L500.4050, L506.0400, L503.6550, L506.1000, L500.4100, L501.56185, L501.9520 ####[facility] [address] [place], [address] CA,Total 9.2 mg/dL Normal 8.5-10.1 [facility] Comment on above: Order Comment: 182 Performed By: #### L 100.0500, L503.0105, L500.4050, L506.0400, L503.6550, L506.1000, L500.4100, L501.23882, L501.9520 ####[facility] [address] [place], [address] Chloride [Moles/Vol] 104 mmol/L Normal 98-107 [facility] Comment on above: Order Comment: 182 Performed By: #### L 100.0500, L503.0105, L500.4050, L506.0400, L503.6550, L506.1000, L500.4100, L501.46684, L501.9520 ####[facility] [address] [place], [address] CO2 [Moles/Vol] 27.0 mmol/L Normal 21.0-32.0 [facility] Comment on above: Order Comment: 182 Performed By: #### L 100.0500, L503.0105, L500.4050, L506.0400, L503.6550, L506.1000, L500.4100, L501.91860, L501.9520 ####[facility] [address] [place], [address] Creatinine [Mass/Vol] 0.80 mg/dL Normal 0.55-1.02 [facility] Comment on above: Order Comment: 182 Result Comment: The validity of the calculated GFR GFRAA in patients over70 years has not been determined. Clinical correlation isessential. Performed By: #### L 100.0500, L503.0105, L500.4050, L506.0400, L503.6550, L506.1000, L500.4100, L501.18978, L501.9520 ####[facility] [address] [place], [address] EST GFR - AA 92 mL/min Normal >60 [facility] Comment on above: Order Comment: 182 Result Comment: Afri can Finnish GFR Calc Performed By: #### L 100.0500, L503.0105, L500.4050, L506.0400, L503.6550, L506.1000, L500.4100, L501.65466, L501.9520 ####[facility] [address] [place], [address] GAP 7 Normal 5-15 [facility] Comment on above: Order Comment: 182 Performed By: #### L 100.0500, L503.0105, L500.4050, L506.0400, L503.6550, L506.1000, L500.4100, L501.82119, L501.9520 ####[facility] [address] [place], [address] GFR/1.73 sq M.predicted among non-blacks MDRD (S/P/Bld) [Vol rate/Area] 76 mL/min/{1.73_m2} Normal >60 [facility] Comment on above: Order Comment: 182 Result Comment: Non- GFR Calc Performed By: #### L 100.0500, L503.0105, L500.4050, L506.0400, L503.6550, L506.1000, L500.4100, L501.74238, L501.9520 ####[facility] [address] [place], [address] Globulin (S) [Mass/Vol] 2.8 g/dL Normal 2.2-4.2 [facility] Comment on above: Order Comment: 182 Performed By: #### L 100.0500, L503.0105, L500.4050, L506.0400, L503.6550, L506.1000, L500.4100, L501.00224, L501.9520 ####[facility] [address] [place], [address] Glucose [Mass/Vol] 80 mg/dL Normal 74-106 [facility] Comment on above: Order Comment: 182 Performed By: #### L 100.0500, L503.0105, L500.4050, L506.0400, L503.6550, L506.1000, L500.4100, L501.76136, L501.9520 ####[facility] [address] [place], [address] Potassium [Moles/Vol] 4.0 mmol/L Normal 3.5-5.1 [facility] Comment on above: Order Comment: 182 Performed By: #### L 100.0500, L503.0105, L500.4050, L506.0400, L503.6550, L506.1000, L500.4100, L501.50724, L501.9520 ####[facility] [address] [place], [address] Sodium [Moles/Vol] 138 mmol/L Normal 136-145 [facility] Comment on above: Order Comment: 182 Performed By: #### L 100.0500, L503.0105, L500.4050, L506.0400, L503.6550, L506.1000, L500.4100, L501.39928, L501.9520 ####[facility] [address] [place], [address] T PROT 6.0 g/dL Low 6.4-8.2 [facility] Comment on above: Order Comment: 182 Performed By: #### L 100.0500, L503.0105, L500.4050, L506.0400, L503.6550, L506.1000, L500.4100, L501.65897, L501.9520 ####[facility] [address] [place], [place], [address] Urea nitrogen [Mass/Vol] 11 mg/dL Normal 7-18 [facility] Comment on above: Order Comment: 182 Performed By: #### L 100.0500, L503.0105, L500.4050, L506.0400, L503.6550, L506.1000, L500.4100, L501.53896, L501.9520 ####[facility] [address] [place], [address] Ferritinon 12-15-2024 Ferritin [Mass/Vol] 56 ng/mL Normal 8-252 [facility] Comment on above: Order Comment: 182 Performed By: #### L 100.0500, L503.0105, L500.4050, L506.0400, L503.6550, L506.1000, L500.4100, L501.67838, L501.9520 ####[facility] [address] [facility] [place], [address] Free T3on 12-15-2024 Free T3 [Mass/Vol] 2.5 pg/mL Normal 2.18-3.98 [facility] Comment on above: Order Comment: 182 Performed By: #### L 100.0500, L503.0105, L500.4050, L506.0400, L503.6550, L506.1000, L500.4100, L501.22824, L501.9520 ####[facility] [address] [place], [place], [id number] Lipid Profileon 12-15-2024 Cholesterol [Mass/Vol] 165 mg/dL Normal 200 [facility] Comment on above: Order Comment: 182 Result Comment: <200 mg/dL Desirable 200-240 mg/dL Borderline >240 mg/dL High Risk Performed By: #### L 100.0500, L503.0105, L500.4050, L506.0400, L503.6550, L506.1000, L500.4100, L501.28805, L501.9520 ####[facility] [address] [place], [address] Cholesterol in HDL [Mass/Vol] 80 mg/dL Normal [facility] Comment on above: Order Comment: 182 Result Comment: The drugs N-Acetylcysteine and Metamizole may falselydepress this assay. Reference Range HDL <40 mg/dL Low HDL Cholesterol HDL >or= 60 mg/dL High HDL Cholesterol Performed By: #### L 100.0500, L503.0105, L500.4050, L506.0400, L503.6550, L506.1000, L500.4100, L501.11825, L501.9520 ####[facility] [address] [place], [address] Cholesterol in LDL [Mass/Vol] 77 mg/dL Normal 0-130 [facility] Comment on above: Order Comment: 182 Performed By: #### L 100.0500, L503.0105, L500.4050, L506.0400, L503.6550, L506.1000, L500.4100, L501.01551, L501.9520 ####[facility] [address] [place], [address] Cholesterol in VLDL [Mass/Vol] 8 mg/dL Normal 5-40 [facility] Comment on above: Order Comment: 182 Performed By: #### L 100.0500, L503.0105, L500.4050, L506.0400, L503.6550, L506.1000, L500.4100, L501.23473, L501.9520 ####[facility] [address] [place], [address] Triglyceride [Mass/Vol] 40 mg/dL Normal [facility] Comment on above: Order Comment: 182 Result Comment: The drugs N-Acetylcysteine and Metamizole may falselydepress this assay.Serum Triglycerides Reference Interval Normal <150 mg/dL Borderline high 150 - 199 mg/dL High 200 - 499 mg/dL Very High > or = 500 mg/dL Performed By: #### L 100.0500, L503.0105, L500.4050, L506.0400, L503.6550, L506.1000, L500.4100, L501.42455, L501.9520 ####[facility] [address] [place], [address] T4 Free Directon 12-15-2024 T4 FREE DIRECT 1.43 ng/dL Normal 0.76-1.46 [facility] Comment on above: Order Comment: 182 Performed By: #### L 100.0500, L503.0105, L500.4050, L506.0400, L503.6550, L506.1000, L500.4100, L501.94093, L501.9520 ####[facility] [address] [place], [address] Thyroid Stim Hormone (TSH)on 12-15-2024 TSH 2.030 uIU/mL Normal 0.358-3.740 [facility] Comment on above: Order Comment: 182 Performed By: #### L 100.0500, L503.0105, L500.4050, L506.0400, L503.6550, L506.1000, L500.4100, L501.17097, L501.9520 ####[facility] [address] [place], [place], [address] Vitamin B12on 12-15-2024 Cobalamin (Vitamin B12) [Mass/Vol] 303 pg/mL Normal 211-911 [facility] Comment on above: Order Comment: 182 Performed By: #### L 100.0500, L503.0105, L500.4050, L506.0400, L503.6550, L506.1000, L500.4100, L501.00548, L501.9520 ####[facility] [address] [place], [place], [address] Vitamin D,25 Hydroxyon 12-15 Vitamin D 25-OH 40.7 ng/mL Normal [facility] Comment on above: Order Comment: 182 Result Comment: Renetta min D 25(OH) Status Range Deficiency <20 ng/mL (50nmol/L) Insufficiency 20 - 30 ng/mL (50 - 75 nmol/L) Sufficiency 30 - 100 ng/mL (75 - 250 nmol/L) Toxicity >100 ng/mL (>250 nmol/L) Performed By: #### L 100.0500, L503.0105, L500.4050, L506.0400, L503.6550, L506.1000, L500.4100, L501.13648, L501.9520 ####[facility] [address] [place], [place], [id number] Office Visiton 12-13-2024 Follow-up visit [id number] Steve Fagan 1955 F Date Provider Department Center 12/13/2024 ROBBY MARTELL [facility] NURYS None Family History Problem Relation Age of Onset Alcohol abuse Mother Heart disease Sister Bipolar disorder Mother Stroke Sister Cancer Brother Emphysema Father Family Status - Relation Status Age at Mother Sister Alive Brother Father Sister Alive Sister Alive Level of Service:07755 MO OFFICE/OUTPATIENT ESTABLISHED MOD MDM 30 MIN Reason for Visit and Comments: Follow-up [061516] Headache [52] Normal [facility] Progress Noteon 12-13-2024 Progress Note [facility] [address] [place] [address] [facility] [address] Dept: [phone] Dept Loc: [phone] Robby Napier MD CHIEF COMPLAINT: Chief Complaint Patient presents with Follow-up Headache HISTORY OF PRESENT ILLNESS: The patient is a 69 y.o. person who returns with abnormal movements. She reports that Ingrezza at 60 mg made her depression worse. I reduced the dose to 40 mg and it is back to normal. She is having frequent headaches. Back of her neck and refers to occiput and vertex. 16 headache days per month.She tried rizatriptan and "sounded drunk." Sumatriptan does not do that. Qulipta made her nauseous. People are noticing apneas while she is sleeping. She is having trouble with her PAP therapy device. She is seeing pulmonology for this. She denies mask leak. Her device is less than a year old. Past Medical History: has a past medical history of Anxiety, Asthma, Bipolar 1 disorder ([facility]), Bipolar depression (CMS/HCC) ([facility]), Cerebral palsy ([facility]), Cervical spine degeneration, COPD (chronic obstructive pulmonary disease) ([facility]), Dysphasia, Gait abnormality, GERD (gastroesophageal reflux disease), Hypercholesteremia, Hyperreflexia, Hypoglycemia, Hypothyroidism, IBS (irritable bowel syndrome), Myalgia, Myositis, Rhinitis, and Urinary incontinence. Past Surgical History: has a past surgical history that includes Leg Surgery; Carpal tunnel release (Left); Shoulder surgery; Nasal septum surgery; Appendectomy; and Cholecystectomy. Medications: Current Outpatient Medications: Acetaminophen (TYLENOL 8 HOUR PO), Take by mouth., Disp: , Rfl: albuterol (2.5 MG/3ML) 0.083% nebulizer solution, , Disp: , Rfl: albuterol 108 (90 Base) MCG/ACT inhaler, Inhale 2 puffs every 6 hours as needed for wheezing., Disp: , Rfl: ammonium lactate (Amlactin) 12 % cream, APPLY TO ELBOWS ONCE A DAY, Disp: , Rfl: aspirin 81 MG EC tablet, Take 1 tablet by mouth daily., Disp: , Rfl: BUDESONIDE IN, Inhale., Disp: , Rfl: Calcium Carbonate-Vitamin D 500-5 MG-MCG tablet, Take by mouth., Disp: , Rfl: carboxymethylcellulo se (Artificial Tears) 1 % ophthalmic solution, 1 drop 3 times daily., Disp: , Rfl: cetirizine (ZyrTEC) 10 MG tablet, Take by mouth., Disp: , Rfl: clopidogrel (Plavix) 75 MG tablet, Take by mouth daily., Disp: , Rfl: Cyanocobalamin (B-12) 1000 MCG sublingual tablet, Place under the tongue., Disp: , Rfl: diazePAM (Valium) 10 MG tablet, Take 1 tablet (10 mg) by mouth Once for 1 dose. 2 hours prior to the MRI, Disp: 1 tablet, Rfl: 0 Diclofenac Sodium (Voltaren) 1 % gel, Apply topically 2 times daily., Disp: , Rfl: ferrous sulfate 325 (65 Fe) MG tablet, Take 325 mg by mouth daily (with breakfast)., Disp: , Rfl: fluticasone (Flonase) 50 MCG/ACT nasal spray, Administer 1 spray into each nostril daily. Shake gently. Before first use, prime pump. After use, clean tip and replace cap., Disp: , Rfl: FORMOTEROL FUMARATE IN, Inhale., Disp: , Rfl: gabapentin (Neurontin) 400 MG capsule, Take 400 mg by mouth 3 times daily., Disp: , Rfl: HYDROcodone-acetamin ophen ([place]) 5-325 MG tablet, , Disp: , Rfl: hydrocortisone 2.5 % cream, Apply topically 2 times daily., Disp: , Rfl: hydrOXYzine HCl (Atarax) 25 MG tablet, Take by mouth., Disp: , Rfl: ibandronate (Boniva) 150 MG tablet, Take 150 mg by mouth every 30 (thirty) days. Take in morning with full glass of water on an empty stomach. No food, drink, meds, or lying down for 60 minutes after., Disp: , Rfl: lactase (Lactaid) 3000 units tablet, Take 3,000 Units by mouth in the morning and 3,000 Units at noon and 3,000 Units in the evening. Take with meals., Disp: , Rfl: lamoTRIgine (LAMICTAL PO), Take 100 mg by mouth Nightly., Disp: , Rfl: lamoTRIgine (LaMICtal) 200 MG tablet, Take 200 mg by mouth 2 times daily., Disp: , Rfl: levothyroxine (Synthroid, Levoxyl) 75 MCG tablet, Take by mouth every morning (before breakfast)., Disp: , Rfl: losartan (Cozaar) 25 MG tablet, Take by mouth., Disp: , Rfl: magnesium oxide (Mag-Ox) 400 mg tablet, 400 mg daily., Disp: , Rfl: meclizine (Antivert) 12.5 MG tablet, Take 12.5 mg by mouth 3 times daily as needed for dizziness., Disp: , Rfl: Multiple Vitamin (multivitamin) capsule, Take 1 capsule by mouth daily., Disp: , Rfl: Multiple Vitamins-Minerals (PRESERVISION AREDS PO), Take by mouth., Disp: , Rfl: nystatin (Mycostatin) 349429 UNIT/GM powder, Apply topically 2 times daily., Disp: , Rfl: polycarbophil (Fiber-Lax) 625 MG tablet, Take by mouth daily., Disp: , Rfl: polyethylene glycol, PEG, 3350 (Miralax) 17 g packet, Take by mouth., Disp: , Rfl: prednisoLONE sodium phosphate (Inflamase Forte) 1 % ophthalmic solution, 1 drop in the morning and 1 drop at noon and 1 drop in the evening and 1 drop before bedtime., Disp: , Rfl: promethazine (Phenergan) 25 MG tablet, Take by mouth., Disp: , Rfl: RABEprazole (Aciphex) (more content not included)... Normal [facility] Progress Note Patient was given samples today of [facility]. Patient given 4 boxes. All boxes have the same LOT number and Expiration date LOT # [id number] Expiration date: 09/2027. Normal [facility] Office Visiton 12-12-2024 Follow-up visit [id number] Zen Fagania 1955 F Date Provider Department Center 12/12/2024 [id number] BERGERON [facility] P None Family History Problem Relation Age of Onset Alcohol abuse Mother Heart disease Sister Bipolar disorder Mother Stroke Sister Cancer Brother Emphysema Father Family Status - Relation Status Age at Mother Sister Alive Brother Father Sister Alive Sister Alive Level of Service:96200 MO OFFICE/OUTPATIENT NEW MODERATE MDM 45 MINUTES Reason for Visit and Comments: New Patient [542] - Bilateral blepharospasm Progress Noteon 12-12-2024 Progress Note Department of Neurological Sciences Initial Consult Note CHIEF COMPLAINT: Chief Complaint Patient presents with New Patient Bilateral blepharospasm Reason for Consult: Blepharospasm. HISTORY OF PRESENT ILLNESS: The patient is a 69 y.o. female who presents with history of chronic migraine without aura, intractable. Today patient presented to the neurology clinic referred by Dr. Napier because of frequent spasms bilaterally. Patient reports that she still have headaches almost on a daily basis. Patient have failed multiple medications the last 1 was Qulipta. In addition patient complaining of spasms and closing of both eyes especially with bright light. Patient reports that when she is exposed to bright light her eyes closed and she had difficulty opening. Patient also reports that when she has significant distress her eyes also tend to close. Apparently patient had dyskinesis in the facial muscles. Patient was started by Dr. Napier on Ingrezza and her dyskinesia has improved. Patient denied any improvement of her blepharospasm. Has been evaluated by ophthalmology and according to patient did not see any spasms of her eyes. Today during her visit to the neurology clinic she has 2 episodes of closing her eyes. Still complaining of headaches. He denied any other neurological deficits. Patient carries a diagnosis of bipolar disorder and she has been on antipsychotics. In addition patient have a stroke in 2020 at [facility]. Patient is in a wheelchair because of her cerebral palsy. Past Medical History: Past Medical History: Diagnosis Date Anxiety Asthma Bipolar 1 disorder ([facility]) Bipolar depression (CMS/HCC) ([facility]) Cerebral palsy ([facility]) Cervical spine degeneration COPD (chronic obstructive pulmonary disease) ([facility]) Dysphasia Gait abnormality GERD (gastroesophageal reflux disease) Hypercholesteremia Hyperreflexia Hypoglycemia Hypothyroidism IBS (irritable bowel syndrome) Myalgia Myositis Rhinitis Urinary incontinence Past Surgical History: Past Surgical History: Procedure Laterality Date APPENDECTOMY CARPAL TUNNEL RELEASE Left CHOLECYSTECTOMY KNEE ARTHROSCOPY NASAL SEPTUM SURGERY SHOULDER SURGERY Medications: Current Outpatient Medications Medication Sig Dispense Refill Acetaminophen (TYLENOL 8 HOUR PO) Take by mouth. albuterol (2.5 MG/3ML) 0.083% nebulizer solution albuterol 108 (90 Base) MCG/ACT inhaler Inhale 2 puffs every 6 hours as needed for wheezing. ammonium lactate (Amlactin) 12 % cream APPLY TO ELBOWS ONCE A DAY aspirin 81 MG EC tablet Take 1 tablet by mouth daily. BUDESONIDE IN Inhale. Calcium Carbonate-Vitamin D 500-5 MG-MCG tablet Take by mouth. carboxymethylcellulo se (Artificial Tears) 1 % ophthalmic solution 1 drop 3 times daily. cetirizine (ZyrTEC) 10 MG tablet Take by mouth. clopidogrel (Plavix) 75 MG tablet Take by mouth daily. Cyanocobalamin (B-12) [address] under the tongue. Diclofenac Sodium (Voltaren) 1 % gel Apply topically 2 times daily. ferrous sulfate 325 (65 Fe) MG tablet Take 325 mg by mouth daily (with breakfast). fluticasone (Flonase) 50 MCG/ACT nasal spray Administer 1 spray into each nostril daily. Shake gently. Before first use, prime pump. After use, clean tip and replace cap. FORMOTEROL FUMARATE IN Inhale. gabapentin (Neurontin) 400 MG capsule Take 400 mg by mouth 3 times daily. HYDROcodone-acetamin ophen ([place]) 5-325 MG tablet hydrocortisone 2.5 % cream Apply topically 2 times daily. hydrOXYzine HCl (Atarax) 25 MG tablet Take by mouth. ibandronate (Boniva) 150 MG tablet Take 150 mg by mouth every 30 (thirty) days. Take in morning with full glass of water on an empty stomach. No food, drink, meds, or lying down for 60 minutes after. lactase (Lactaid) 3000 units tablet Take 3,000 Units by mouth in the morning and 3,000 Units at noon and 3,000 Units in the evening. Take with meals. lamoTRIgine (LAMICTAL PO) Take 100 mg by mouth Nightly. lamoTRIgine (LaMICtal) 200 MG tablet Take 200 mg by mouth 2 times daily. levothyroxine (Synthroid, Levoxyl) 75 MCG tablet Take by mouth every morning (before breakfast). losartan (Cozaar) 25 MG tablet Take by mouth. magnesium oxide (Mag-Ox) 400 mg tablet 400 mg daily. meclizine (Antivert) 12.5 MG tablet Take 12.5 mg by mouth 3 times daily as needed for dizziness. Multiple Vitamin (multivitamin) capsule Take 1 capsule by mouth daily. Multiple Vitamins-Minerals (PRESERVISION AREDS PO) Take by mouth. nystatin (Mycostatin) 242809 UNIT/GM powder Apply topically 2 times daily. polycarbophil (Fiber-Lax) 625 MG tablet Take by mouth daily. polyethylene glycol, PEG, 3350 (Miralax) 17 g packet Take by mouth. prednisoLONE sodium phosphate (Inflamase Forte) 1 % ophthalmic solution 1 drop in the morning and 1 drop at noon and 1 drop in the evening and 1 drop before bedtime. promethazine (Phenergan) 25 MG tablet Take by mouth. RABEpr (more content not included)... Normal [facility] 12 Lead EKGon 12-08-2024 12 Lead EKG Normal [facility] Basic Metabolic Profile (BMP )on 12-08-2024 BUN/CRE 11.4 RATIO Normal 10-20 [facility] Comment on above: Order Comment: 'TROP ' Serial specimen #1, #2 or #3: 1 Performed By: #### L 500.2500, L100.0100, L501.4020 ####[facility] [address] [place], [address] CA,Total 9.3 mg/dL Normal 8.5-10.1 [facility] Comment on above: Order Comment: 'TROP ' Serial specimen #1, #2 or #3: 1 Performed By: #### L 500.2500, L100.0100, L501.4020 ####[facility] [address] [place], [address] Chloride [Moles/Vol] 104 mmol/L Normal 98-107 [facility] Comment on above: Order Comment: 'TROP ' Serial specimen #1, #2 or #3: 1 Performed By: #### L 500.2500, L100.0100, L501.4020 ####[facility] [address] [place], [address] CO2 [Moles/Vol] 29.0 mmol/L Normal 21.0-32.0 [facility] Comment on above: Order Comment: 'TROP ' Serial specimen #1, #2 or #3: 1 Performed By: #### L 500.2500, L100.0100, L501.4020 ####[facility] [address] [place], [address] Creatinine [Mass/Vol] 0.88 mg/dL Normal 0.55-1.02 [facility] Comment on above: Order Comment: 'TROP ' Serial specimen #1, #2 or #3: 1 Result Comment: The validity of the calculated GFR GFRAA in patients over70 years has not been determined. Clinical correlation isessential. Performed By: #### L 500.2500, L100.0100, L501.4020 ####[facility] [address] [place], [address] ECRCL 62.15 ml/min Normal [facility] Comment on above: Order Comment: 'TROP ' Serial specimen #1, #2 or #3: 1 Performed By: #### L 500.2500, L100.0100, L501.4020 ####[facility] [address] [place], [address] EST GFR - AA 83 mL/min Normal >60 [facility] Comment on above: Order Comment: 'TROP ' Serial specimen #1, #2 or #3: 1 Result Comment: Afri can Finnish GFR Calc Performed By: #### L 500.2500, L100.0100, L501.4020 ####[facility] [address] [place], [address] GAP 8 Normal 5-15 [facility] Comment on above: Order Comment: 'TROP ' Serial specimen #1, #2 or #3: 1 Performed By: #### L 500.2500, L100.0100, L501.4020 ####[facility] [address] [place], [address] GFR/1.73 sq M.predicted among non-blacks MDRD (S/P/Bld) [Vol rate/Area] 68 mL/min/{1.73_m2} Normal >60 [facility] Comment on above: Order Comment: 'TROP ' Serial specimen #1, #2 or #3: 1 Result Comment: Non- GFR Calc Performed By: #### L 500.2500, L100.0100, L501.4020 ####[facility] [address] [place], [address] Glucose [Mass/Vol] 88 mg/dL Normal 74-106 [facility] Comment on above: Order Comment: 'TROP ' Serial specimen #1, #2 or #3: 1 Performed By: #### L 500.2500, L100.0100, L501.4020 ####[facility] [address] [place], [address] Potassium [Moles/Vol] 3.6 mmol/L Normal 3.5-5.1 [facility] Comment on above: Order Comment: 'TROP ' Serial specimen #1, #2 or #3: 1 Performed By: #### L 500.2500, L100.0100, L501.4020 ####[facility] [address] [place], [address] Sodium [Moles/Vol] 141 mmol/L Normal 136-145 [facility] Comment on above: Order Comment: 'TROP ' Serial specimen #1, #2 or #3: 1 Performed By: #### L 500.2500, L100.0100, L501.4020 ####[facility] [address] [place], [address] Urea nitrogen [Mass/Vol] 10 mg/dL Normal 7-18 [facility] Comment on above: Order Comment: 'TROP ' Serial specimen #1, #2 or #3: 1 Performed By: #### L 500.2500, L100.0100, L501.4020 ####[facility] [address] [place], [address] CBC W/Diff, Automatedon 02-0 7-2024 Absolute Lymph 1.20 X10 3/uL Normal 0.83-4.51 [facility] Comment on above: Performed By: #### L 500.2500, L100.0100, L501.4020 ####[facility] [address] [place], [address] Absolute Neut 3.2 X10 3/uL Normal 2.0-7.7 [facility] Comment on above: Performed By: #### L 500.2500, L100.0100, L501.4020 ####[facility] [address] [place], [address] Basophils/100 WBC (Bld) 0.6 % Normal 0-1 [facility] Comment on above: Performed By: #### L 500.2500, L100.0100, L501.4020 ####[facility] [address] [place], [address] Eosinophils/100 WBC (Bld) 4.6 % Normal 0-5 [facility] Comment on above: Performed By: #### L 500.2500, L100.0100, L501.4020 ####[facility] [address] [place], [address] Erythrocyte distribution width (RBC) [Ratio] 11.6 % Normal 11.6-14.6 [facility] Comment on above: Performed By: #### L 500.2500, L100.0100, L501.4020 ####[facility] [address] [place], [address] Hematocrit (Bld) [Volume fraction] 39.5 % Normal 37-47 [facility] Comment on above: Performed By: #### L 500.2500, L100.0100, L501.4020 ####[facility] [address] [place], [address] Hemoglobin (Bld) [Mass/Vol] 13.5 g/dL Normal 12.0-15.0 [facility] Comment on above: Performed By: #### L 500.2500, L100.0100, L501.4020 ####[facility] [address] [place], [address] IG% 0.600 Normal 0.0-0.9 [facility] Comment on above: Result Comment: IG% - Immature Granulocytes (promyelocytes, myelocytes andmetamyelocytes) > 1% indicates that a LEFT SHIFT is Present. Performed By: #### L 500.2500, L100.0100, L501.4020 ####[facility] [address] [place], [address] Lymphocytes/100 WBC (Bld) 22.3 % Normal 19-41 [facility] Comment on above: Performed By: #### L 500.2500, L100.0100, L501.4020 ####[facility] [address] [place], [address] MCH (RBC) [Entitic mass] 33.8 pg High 27.0-32.0 [facility] Comment on above: Performed By: #### L 500.2500, L100.0100, L501.4020 ####[facility] [address] [place], [address] MCHC (RBC) [Mass/Vol] 34.2 g/dL Normal 32-36 [facility] Comment on above: Performed By: #### L 500.2500, L100.0100, L501.4020 ####[facility] [address] [place], [address] MCV (RBC) [Entitic vol] 99.0 fL Normal 81-99 [facility] Comment on above: Performed By: #### L 500.2500, L100.0100, L501.4020 ####[facility] [address] [place], [address] Monocytes/100 WBC (Bld) 12.6 % High 0-10 [facility] Comment on above: Performed By: #### L 500.2500, L100.0100, L501.4020 ####[facility] [address] [place], [address] Neutrophils/100 WBC (Bld) 59.3 % Normal 47-70 [facility] Comment on above: Performed By: #### L 500.2500, L100.0100, L501.4020 ####[facility] [address] [place], [address] Nucleated RBC (Bld) [#/Vol] 0 10*3/uL Normal 0-5 [facility] Comment on above: Performed By: #### L 500.2500, L100.0100, L501.4020 ####[facility] [address] [place], [address] Platelet mean volume (Bld) [Entitic vol] 8.8 fL Normal 6.2-12.0 [facility] Comment on above: Performed By: #### L 500.2500, L100.0100, L501.4020 ####[facility] [address] [place], [address] Platelets (Bld) [#/Vol] 222 10*3/uL Normal 150-450 [facility] Comment on above: Performed By: #### L 500.2500, L100.0100, L501.4020 ####[facility] [address] [place], [address] RBC (Bld) [#/Vol] 3.99 10*6/uL Low 4.2-5.4 [facility] Comment on above: Performed By: #### L 500.2500, L100.0100, L501.4020 ####[facility] [address] [place], [address] RDW SD 42.3 fl Normal 35.1-43.9 [facility] Comment on above: Performed By: #### L 500.2500, L100.0100, L501.4020 ####[facility] [address] [place], [address] WBC (Bld) [#/Vol] 5.4 10*3/uL Normal 4.4-11.0 [facility] Comment on above: Performed By: #### L 500.2500, L100.0100, L501.4020 ####[facility] [address] [place], [address] Chest PA and Lateralon 12-08 Chest PA and Lateral Normal [facility] Emergency Department Summary on 12-08-2024 Emergency Department Summary Normal [facility] L501.4020on 12-08-2024 TROPONIN-I HS 9 pg/mL Normal 3.0-54.0 [facility] Comment on above: Order Comment: 'TROP ' Serial specimen #1, #2 or #3: 1 Result Comment: Omer moya Note: New Test Units and Gender Specific Reference Ranges. For more information see Policy Stat Procedure [place] High Sensitivity Troponin (TNIH) and attachments. Performed By: #### L 500.2500, L100.0100, L501.4020 ####[facility] [address] [place], [address] M100.678on 12-08-2024 M100.678 SARS-CoV-2 (COVID 19) Negative INFLUENZA A Negative INFLUENZA B Negative RSV PCR Negative Normal [facility] Comment on above: Performed By: #### M 100.678, L400.0001 ####[facility] [address] [place], [address] Pulmonary Visit Reporton Pulmonary Visit Report Normal [facility] Urinalysis, Completeon 12-08 Mucus Ql (Urine sed) 0 SEEN Normal [facility] Comment on above: Order Comment: CLEAN CATCH Performed By: #### M 100.678, L400.0001 ####[facility] [address] [place], [address] 36on 12-05-2024 36 Spoke with patient and rescheduled her appointment Normal [facility] 36 Name of caller: Steve Contact phone number: [phone] Relationship to Patient: patient Provider: Dr. Napier Practice: [facility] [place] Chief Complaint/Reason for Call: Steve states that she received a call advising that her 12/05/24 appointment needed to be rescheduled because Dr. Napier wants her to see Dr. Bergeron first. Steve states that she would like to know if it is okay to keep her 01/09/25 appointment with Leatha since Dr. Napier's schedule is out to March. Steve states that it is very inconvenient for her POA to be called at 7:40 am when she is scheduled to come in at 9 am, because she has to set up transportation and due to the last minute notice they were already on the way to pick her up for her appointment. Steve states that she does not want anyone contacting her POA at [phone] to cancel, schedule and/or reschedule her appointments anymore, call her directly at the phone number on file. Please advise. Best time of day caller can be reached: Any Patient advised that office/PCP has 24-48 business hours to return their call: No Normal [facility] Urine Cultureon 11-28-2024 URC 182 Culture exhibits no growth. Normal [facility] Comment on above: Performed By: #### L 400.0001, M100.0 ####[facility] [address] [place], [address] Urinalysis, Completeon 11-27 WBC 0-5 SEEN Normal 0-5 [facility] Comment on above: Order Comment: 182CL ROGER CATCH Performed By: #### L 400.0001, M100.0 ####[facility] [address] [place], [address] BACTERIA 0 SEEN Normal None Seen [facility] Comment on above: Order Comment: 182CL ROGER CATCH Performed By: #### L 400.0001, M100.2200 ####[facility] [address] [place], [address] EPI,SQUAMOUS 0 SEEN Normal 5-10 [facility] Comment on above: Order Comment: 182CL ROGER CATCH Performed By: #### L 400.0001, M100.2200 ####[facility] [address] [place], [address] Mucus Ql (Urine sed) 0 SEEN Normal [facility] Comment on above: Order Comment: 182CL ROGER CATCH Performed By: #### L 400.0001, M100.2200 ####[facility] [address] [place], [address] RBC 0 SEEN Normal 0-5 [facility] Comment on above: Order Comment: 182CL ROGER CATCH Performed By: #### L 400.0001, M100.2200 ####[facility] [address] [place], [address] XR CHEST 2 VIEWSon XR CHEST 2 VIEWS ORIGINAL EXAMINATION: TWO XRAY VIEWS OF THE CHEST11/25/2024 10:06 am COMPARISON: Chest radiograph 10/20/2024 HISTORY: ORDERING SYSTEM PROVIDED HISTORY: Reason for Exam: cough, FINDINGS: Evaluation is less than optimal due to severe thoracic kyphotic curvature, kyphotic projection and shallow inspiration. Within these constraints, there is no lung consolidation, vascular congestion, pleural effusion or pneumothorax. Calcified granuloma in the right mid lung as previously. Stable heart and mediastinum. There are lower thoracic vertebral compression deformities and vertebral augmentation. IMPRESSION: No acute findings in the lungs. Interpreted by: William Herrera MD Preliminary Report By: William Herrera MD Electronically signed By William Herrera MD Dictated Date: 11/27/2024 2:16:42 PM Prelim Date: 11/27/2024 2:17:55 PM Sign Date: 11/27/2024 2:17:55 PM Ordering Provider: JHONATHAN DELUNA Normal [facility] Gastric Emptying Studyon Gastric Emptying Study [facility] 36on 11-17-2024 36 We spoke with this patient to schedule physical therapy and she said that she had gone to [facility] in [place] and completed the therapy. Thanks! Normal [facility] MR/BMS.BPon 11-07-2024 MR/BMS.BP Normal [facility] .Auto Diffon 10-20-2024 Basophil, Absolute 0.1 10 3/mcL Normal 0.0-0.2 [facility] Comment on above: Performed By: #### C K, CMP, FE, VIDH, MG, ESR, ADIFF, ANEU, URIC, CAION, CBC, CRP, ANAIFS, GFR #### [address] [address] #### RF, B12 #### [address] [address] Basophils/100 WBC (Bld) 0.9 % Normal 0.0-2.5 [facility] Comment on above: Performed By: #### C K, CMP, FE, VIDH, MG, ESR, ADIFF, ANEU, URIC, CAION, CBC, CRP, ANAIFS, GFR #### [address] [address] #### RF, B12 #### [address] [address] Eosinophil, Absolute 0.1 10 3/mcL Normal 0.0-0.7 [facility] Comment on above: Performed By: #### C K, CMP, FE, VIDH, MG, ESR, ADIFF, ANEU, URIC, CAION, CBC, CRP, ANAIFS, GFR #### [address] [address] #### RF, B12 #### [address] [address] Eosinophils/100 WBC (Bld) 1.6 % Normal 0.0-7.0 [facility] Comment on above: Performed By: #### C K, CMP, FE, VIDH, MG, ESR, ADIFF, ANEU, URIC, CAION, CBC, CRP, ANAIFS, GFR #### [address] [address] #### RF, B12 #### [address] [address] Lymphocyte, Absolute 1.4 10 3/mcL Normal 0.9-4.3 [facility] Comment on above: Performed By: #### C K, CMP, FE, VIDH, MG, ESR, ADIFF, ANEU, URIC, CAION, CBC, CRP, ANAIFS, GFR #### [address] [address] #### RF, B12 #### [address] [address] Lymphocytes/100 WBC (Bld) 21.2 % Normal 20.0-40.0 [facility] Comment on above: Performed By: #### C K, CMP, FE, VIDH, MG, ESR, ADIFF, ANEU, URIC, CAION, CBC, CRP, ANAIFS, GFR #### [place] [address] #### RF, B12 #### [address] [address] Monocyte, Absolute 0.8 10 3/mcL Normal 0.1-1.4 [facility] Comment on above: Performed By: #### C K, CMP, FE, VIDH, MG, ESR, ADIFF, ANEU, URIC, CAION, CBC, CRP, ANAIFS, GFR #### [place] [address] #### RF, B12 #### [address] [address] Monocytes/100 WBC (Bld) 12.0 % Normal 2.0-13.0 [facility] Comment on above: Performed By: #### C K, CMP, FE, VIDH, MG, ESR, ADIFF, ANEU, URIC, CAION, CBC, CRP, ANAIFS, GFR #### [place] [address] #### RF, B12 #### [address] [address] Neutrophils/100 WBC (Bld) 64.3 % Normal 50.0-75.0 [facility] Comment on above: Performed By: #### C K, CMP, FE, VIDH, MG, ESR, ADIFF, ANEU, URIC, CAION, CBC, CRP, ANAIFS, GFR #### [address] [address] #### RF, B12 #### [address] [address] .GFRon 10-20-2024 GFR Non- 68 ml/min/1.73sqm Normal [facility] Comment on above: Result Comment: GFR Population mean for , Non- Americans Ages 20-29 = 116 mL/min/1.73 sq.m. Ages 30-39 = 107 mL/min/1.73 sq.m. Ages 40-49 = 99 mL/min/1.73 sq.m. Ages 50-59 = 93 mL/min/1.73 sq.m. Ages 60-69 = 85 mL/min/1.73 sq.m. Ages 70+ = 75 mL/min/1.73 sq.m. Chronic Kidney Disease: Less than 60 mL/min/1.73 square meters End Stage Renal Disease: Less than 15 mL/min/1.73 square meters Performed By: #### C K, CMP, FE, VIDH, MG, ESR, ADIFF, ANEU, URIC, CAION, CBC, CRP, ANAIFS, GFR #### [address] [address] #### RF, B12 #### [place] [address] GFR 82 ml/min/1.73sqm [facility] Comment on above: Result Comment: GFR Population mean for , Non- Americans Ages 20-29 = 116 mL/min/1.73 sq.m. Ages 30-39 = 107 mL/min/1.73 sq.m. Ages 40-49 = 99 mL/min/1.73 sq.m. Ages 50-59 = 93 mL/min/1.73 sq.m. Ages 60-69 = 85 mL/min/1.73 sq.m. Ages 70+ = 75 mL/min/1.73 sq.m. Chronic Kidney Disease: Less than 60 mL/min/1.73 square meters End Stage Renal Disease: Less than 15 mL/min/1.73 square meters Performed By: #### C K, CMP, FE, VIDH, MG, ESR, ADIFF, ANEU, URIC, CAION, CBC, CRP, ANAIFS, GFR #### [address] [address] #### RF, B12 #### [address] [address] .MDWon 10-20-2024 Monocyte Distribution Width 20.32 High 0.00-20.00 [facility] Comment on above: Result Comment: For adults in ED, MDW>20.0 may be associated with a higher risk of sepsis during the first 12hrs of hospital admission Performed By: #### C K, CMP, FE, VIDH, MG, ESR, ADIFF, ANEU, URIC, CAION, CBC, CRP, ANAIFS, GFR #### [address] [address] #### RF, B12 #### [place] [address] .NEUABSon 10-20-2024 Neutrophil, Absolute 4.2 10 3/mcL Normal 2.3-8.1 [facility] Comment on above: Performed By: #### C K, CMP, FE, VIDH, MG, ESR, ADIFF, ANEU, URIC, CAION, CBC, CRP, ANAIFS, GFR #### [address] [address] #### RF, B12 #### [place] [address] .Urinalysis Microscopic (AO) on 10-20-2024 UA Bacteria 1+ /hpf Abnormal [facility] Comment on above: Performed By: #### C K, CMP, FE, VIDH, MG, ESR, ADIFF, ANEU, URIC, CAION, CBC, CRP, ANAIFS, GFR #### [address] [address] #### RF, B12 #### [place] [address] UA RBC 0-5 Abnormal None Seen [facility] Comment on above: Performed By: #### C K, CMP, FE, VIDH, MG, ESR, ADIFF, ANEU, URIC, CAION, CBC, CRP, ANAIFS, GFR #### [address] [address] #### RF, B12 #### [place] [address] UA Squam Epithelial 5-10 Abnormal None Seen [facility] Comment on above: Performed By: #### C K, CMP, FE, VIDH, MG, ESR, ADIFF, ANEU, URIC, CAION, CBC, CRP, ANAIFS, GFR #### [place] [address] #### RF, B12 #### [place] [address] UA WBC 0-5 Abnormal None Seen [facility] Comment on above: Performed By: #### C K, CMP, FE, VIDH, MG, ESR, ADIFF, ANEU, URIC, CAION, CBC, CRP, ANAIFS, GFR #### [place] [address] #### RF, B12 #### [place] [address] BMPon 10-20-2024 BUN/Creatinine Ratio 11 ratio Normal 7-27 [facility] Comment on above: Performed By: #### C K, CMP, FE, VIDH, MG, ESR, ADIFF, ANEU, URIC, CAION, CBC, CRP, ANAIFS, GFR #### [place] [address] #### RF, B12 #### [place] [address] Calcium [Mass/Vol] 9.7 mg/dL Normal 8.4-10.2 [facility] Comment on above: Performed By: #### C K, CMP, FE, VIDH, MG, ESR, ADIFF, ANEU, URIC, CAION, CBC, CRP, ANAIFS, GFR #### [place] [address] #### RF, B12 #### [place] [address] Chloride [Moles/Vol] 97 mmol/L Low 98-107 [facility] Comment on above: Performed By: #### C K, CMP, FE, VIDH, MG, ESR, ADIFF, ANEU, URIC, CAION, CBC, CRP, ANAIFS, GFR #### [place] [id number] #### RF, B12 #### [place] [address] CO2 [Moles/Vol] 32 mmol/L High 23-31 [facility] Comment on above: Performed By: #### C K, CMP, FE, VIDH, MG, ESR, ADIFF, ANEU, URIC, CAION, CBC, CRP, ANAIFS, GFR #### [place] [address] #### RF, B12 #### [place] [address] Creatinine [Mass/Vol] 0.84 mg/dL Normal 0.55-1.02 [facility] Comment on above: Result Comment: Test ing performed on Siemens Dimension EXL analyzer using a modified kinetic Matt technique. Performed By: #### C K, CMP, FE, VIDH, MG, ESR, ADIFF, ANEU, URIC, CAION, CBC, CRP, ANAIFS, GFR #### [place] [address] #### RF, B12 #### [place] [address] Electrolyte Balance 5.0 mEq/L Normal 4.0-15.0 [facility] Comment on above: Performed By: #### C K, CMP, FE, VIDH, MG, ESR, ADIFF, ANEU, URIC, CAION, CBC, CRP, ANAIFS, GFR #### [place] [address] #### RF, B12 #### [place] [address] Glucose [Mass/Vol] 98 mg/dL Normal 80-115 [facility] Comment on above: Performed By: #### C K, CMP, FE, VIDH, MG, ESR, ADIFF, ANEU, URIC, CAION, CBC, CRP, ANAIFS, GFR #### [address] [address] #### RF, B12 #### [place] [address] Potassium [Moles/Vol] 4.3 mmol/L Normal 3.5-5.1 [facility] Comment on above: Performed By: #### C K, CMP, FE, VIDH, MG, ESR, ADIFF, ANEU, URIC, CAION, CBC, CRP, ANAIFS, GFR #### [address] [address] #### RF, B12 #### [place] [address] Sodium [Moles/Vol] 134 mmol/L Low 136-145 [facility] Comment on above: Performed By: #### C K, CMP, FE, VIDH, MG, ESR, ADIFF, ANEU, URIC, CAION, CBC, CRP, ANAIFS, GFR #### [place] [address] #### RF, B12 #### [place] [address] Urea nitrogen [Mass/Vol] 9 mg/dL Normal 7-18 [facility] Comment on above: Performed By: #### C K, CMP, FE, VIDH, MG, ESR, ADIFF, ANEU, URIC, CAION, CBC, CRP, ANAIFS, GFR #### [place] [address] #### RF, B12 #### [place] [address] CBCon 10-20-2024 Erythrocyte distribution width (RBC) [Ratio] 12.0 % Normal 11.5-15.5 [facility] Comment on above: Performed By: #### C K, CMP, FE, VIDH, MG, ESR, ADIFF, ANEU, URIC, CAION, CBC, CRP, ANAIFS, GFR #### [place] [id number] #### RF, B12 #### [place] [address] Hematocrit (Bld) [Volume fraction] 37.5 % Normal 34.0-46.0 [facility] Comment on above: Performed By: #### C K, CMP, FE, VIDH, MG, ESR, ADIFF, ANEU, URIC, CAION, CBC, CRP, ANAIFS, GFR #### [place] [address] #### RF, B12 #### [place] [address] Hgb 12.9 G/dL Normal 12.0-16.0 [facility] Comment on above: Performed By: #### C K, CMP, FE, VIDH, MG, ESR, ADIFF, ANEU, URIC, CAION, CBC, CRP, ANAIFS, GFR #### [place] [address] #### RF, B12 #### [place] [address] MCH (RBC) [Entitic mass] 33.6 pg High 27.0-33.0 [facility] Comment on above: Performed By: #### C K, CMP, FE, VIDH, MG, ESR, ADIFF, ANEU, URIC, CAION, CBC, CRP, ANAIFS, GFR #### [place] [address] #### RF, B12 #### [place] [address] MCHC 34.4 G/dL Normal 32.0-36.0 [facility] Comment on above: Performed By: #### C K, CMP, FE, VIDH, MG, ESR, ADIFF, ANEU, URIC, CAION, CBC, CRP, ANAIFS, GFR #### [place] [address] #### RF, B12 #### [place] [address] MCV (RBC) [Entitic vol] 97.5 fL Normal 80.0-99.0 [facility] Comment on above: Performed By: #### C K, CMP, FE, VIDH, MG, ESR, ADIFF, ANEU, URIC, CAION, CBC, CRP, ANAIFS, GFR #### [address] [address] #### RF, B12 #### [place] [address] Platelet 223 10 3/mcL Normal 150-450 [facility] Comment on above: Performed By: #### C K, CMP, FE, VIDH, MG, ESR, ADIFF, ANEU, URIC, CAION, CBC, CRP, ANAIFS, GFR #### [place] [address] #### RF, B12 #### [place] [address] Platelet mean volume (Bld) [Entitic vol] 6.3 fL Low 6.6-10.5 [facility] Comment on above: Performed By: #### C K, CMP, FE, VIDH, MG, ESR, ADIFF, ANEU, URIC, CAION, CBC, CRP, ANAIFS, GFR #### [place] [address] #### RF, B12 #### [place] [address] RBC 3.85 10 6/mcL Low 4.10-5.30 [facility] Comment on above: Performed By: #### C K, CMP, FE, VIDH, MG, ESR, ADIFF, ANEU, URIC, CAION, CBC, CRP, ANAIFS, GFR #### [place] [address] #### RF, B12 #### [place] [address] WBC 6.6 10 3/mcL Normal 4.5-10.8 [facility] Comment on above: Performed By: #### C K, CMP, FE, VIDH, MG, ESR, ADIFF, ANEU, URIC, CAION, CBC, CRP, ANAIFS, GFR #### [facility] [address] [place], [place] [address] #### RF, B12 #### [address] [address] LABORATORYOrdered By: Moustapha Cohen on 10-20-2024 Appearance (U) Clear (10/20/24 12:11 PM) Normal Clear AO Auto Urine SS Bacteria LM.HPF (Urine sed) [#/Area] 1 /[HPF] Invalid Interpretation Code AO Auto Urine SS Bilirubin Ql (U) Negative (10/20/24 12:11 PM) Normal Negative AO Auto Urine SS Color (U) Yellow (10/20/24 12:11 PM) Normal AO Auto Urine SS Glucose Test strip (U) [Mass/Vol] Negative Normal Negative AO Auto Urine SS Hemoglobin Auto test strip (U) [Mass/Vol] Negative (10/20/24 12:11 PM) Normal Negative AO Auto Urine SS Ketones Ql (U) Negative Normal Negative AO Auto Ur ine SS UA Leuk Est Small *ABN* (10/20/24 12:11 PM) Invalid Interpretation Code Negative AO Auto Urine SS UA Nitrite Negative (10/20/24 12:11 PM) Normal Negative AO Auto Urine SS UA pH 6.0 (10/20/24 12:11 PM) Normal 5.0 - 8.0 AO Auto Urine SS UA Protein Negative Normal Negative AO Auto Urine SS UA RBC 0-5 /HPF Invalid Interpretation Code None Seen AO Auto Urine SS UA Spec Grav 1.010 *ABN* (10/20/24 12:11 PM) Invalid Interpretation Code 1.015-1.025 AO Auto Urine SS UA Specimen Type Clean Catch (10/20/24 12:11 PM) Normal AO Auto Urine SS UA Squam Epithelial 5-10 /HPF Invalid Interpretation Code None Seen AO Auto Urine SS UA Urobilinogen 0.2 E.U./dL Normal 0.2-1.0 AO Auto Urine SS WBC LM.HPF (Urine sed) [#/Area] 0-5 /HPF Invalid Interpretation Code None Seen AO Auto Urine SS LABORATORYOrdered By: SYSTEM SYSTEM on 10-20-2024 Basophils (Bld) [#/Vol] 0.1 103/mcL Normal 0.0 - 0.2 10^3/mcL AO Workflow SS Basophils/100 WBC (Bld) 0.9 % Normal 0.0 - 2.5 % AO Workflow SS Calcium [Mass/Vol] 9.7 mg/dL Normal 8.4 - 10. 2 mg/dL AO ADM SS Chloride [Moles/Vol] 97 mmol/L Low 98 - 10 7 mmol/L AO ADM SS CO2 [Moles/Vol] 32 mmol/L High 23 - 31 mmol/L AO ADM SS Creatinine [Mass/Vol] 0.84 mg/dL Normal 0.55 - 1.02 mg/dL AO ADM SS Comment on above: Interpretive Data: T esting performed on Siemens Dimension EXL analyzer using a modified kinetic Matt technique. Electrolyte Balance 5.0 mEq/L Normal 4.0 - 15 .0 mEq/L AO ADM SS Eosinophil, Absolute 0.1 103/mcL Normal 0.0 - 0 .7 10^3/mcL AO Workflow SS Eosinophils/100 WBC (Bld) 1.6 % Normal 0.0 - 7.0 % AO Workflow SS Erythrocyte distribution width (RBC) [Ratio] 12.0 % Normal 11.5 - 15.5 % AO Workflow SS GFR/1.73 sq M.predicted among blacks MDRD (S/P/Bld) [Vol rate/Area] 82 ml/min/1.73sqm Invalid Interpretation Code AO Chemistry S Comment on above: Interpretive Data: GFR Population mean for , Non- Americans Ages 20-29 = 116 mL/min/1.73 sq.m. Ages 30-39 = 107 mL/min/1.73 sq.m. Ages 40-49 = 99 mL/min/1.73 sq.m. Ages 50-59 = 93 mL/min/1.73 sq.m. Ages 60-69 = 85 mL/min/1.73 sq.m. Ages 70+ = 75 mL/min/1.73 sq.m. Chronic Kidney Disease: Less than 60 mL/min/1.73 square meters End Stage Renal Disease: Less than 15 mL/min/1.73 square meters GFR/1.73 sq M.predicted among non-blacks MDRD (S/P/Bld) [Vol rate/Area] 68 ml/min/1.73sqm Invalid Interpretation Code AO Chemistry S Comment on above: Interpretive Data: GFR Population mean for , Non- Americans Ages 20-29 = 116 mL/min/1.73 sq.m. Ages 30-39 = 107 mL/min/1.73 sq.m. Ages 40-49 = 99 mL/min/1.73 sq.m. Ages 50-59 = 93 mL/min/1.73 sq.m. Ages 60-69 = 85 mL/min/1.73 sq.m. Ages 70+ = 75 mL/min/1.73 sq.m. Chronic Kidney Disease: Less than 60 mL/min/1.73 square meters End Stage Renal Disease: Less than 15 mL/min/1.73 square meters Glucose [Mass/Vol] 98 mg/dL Normal 80 - 115 mg/dL AO ADM SS Hematocrit (Bld) [Volume fraction] 37.5 % Normal 34.0 - 46.0 % AO Workflow SS Hemoglobin (Bld) [Mass/Vol] 12.9 G/dL Normal 12.0 - 16.0 G/dL AO Workflow SS Lymphocytes (Bld) [#/Vol] 1.4 103/mcL Normal 0.9 - 4.3 10^3/mcL AO Workflow SS Lymphocytes/100 WBC (Bld) 21.2 % Normal 20.0 - 40.0 % AO Workflow SS MCH (RBC) [Entitic mass] 33.6 pg High 27.0 - 33.0 pg AO Workflow SS MCHC 34.4 G/dL Normal 32.0 - 36.0 G/dL AO Workflow SS MCV (RBC) [Entitic vol] 97.5 fL Normal 80.0 - 99.0 fL AO Workflow SS Monocyte distribution width Auto (Bld) [Entitic vol] 20.32 1 High 0.00 - 20.00 AO Workflow SS Comment on above: Result Comment: For adults in ED, MDW>20.0 may be associated with a higher risk of sepsis during the first 12hrs of hospital admission Monocytes (Bld) [#/Vol] 0.8 103/mcL Normal 0.1 - 1.4 10^3/mcL AO Workflow SS Monocytes/100 WBC (Bld) 12.0 % Normal 2.0 - 13.0 % AO Workflow SS Neutrophils (Bld) [#/Vol] 4.2 103/mcL Normal 2.3 - 8.1 10^3/mcL AO Workflow SS Neutrophils/100 WBC (Bld) 64.3 % Normal 50.0 - 75.0 % AO Workflow SS Platelet mean volume (Bld) [Entitic vol] 6.3 fL Low 6.6 - 10.5 fL AO Workflow SS Platelets (Bld) [#/Vol] 223 103/mcL Normal 150 - 450 10^3/mcL AO Workflow SS Potassium [Moles/Vol] 4.3 mmol/L Normal 3.5 - 5.1 mmol/L AO ADM SS RBC (Bld) [#/Vol] 3.85 106/mcL Low 4.10 - 5.3 0 10^6/mcL AO Workflow SS Sodium [Moles/Vol] 134 mmol/L Low 136 - 145 mmol/L AO ADM SS Troponin I.cardiac DL <= 0.01 ng/mL [Mass/Vol] 9 ng/L Normal 0 - 51 ng/L AO ADM SS Comment on above: Interpretive Data: H igh Sensitive Troponin I Reference Ranges: Female: 0-51 ng/L Male: 0-76 ng/L Testing performed on [place] using a homogeneous sandwich chemiluminescent immunoassay based on Webt[employer] technology. Urea nitrogen [Mass/Vol] 9 mg/dL Normal 7 - 18 mg/dL AO ADM SS Urea nitrogen/Creatinine [Mass ratio] 11 ratio Normal 7 - 27 ratio AO ADM SS WBC (Bld) [#/Vol] 6.6 103/mcL Normal 4.5 - 10.8 10^3/mcL AO Workflow SS [facility] High Sensitivity Troponin I 9 ng/L Normal 0-51 [facility] Comment on above: Result Comment: High Sensitive Troponin I Reference Ranges: Female: 0-51 ng/L Male: 0-76 ng/L Testing performed on [place] using a homogeneous sandwich chemiluminescent immunoassay based on Webtogs technology. Performed By: #### C K, CMP, FE, VIDH, MG, ESR, ADIFF, ANEU, URIC, CAION, CBC, CRP, ANAIFS, GFR #### [facility] [address] [place] [address] #### RF, B12 #### [address] [address] UAon 10-20-2024 Color (U) Yellow Normal [facility] Comment on above: Performed By: #### C K, CMP, FE, VIDH, MG, ESR, ADIFF, ANEU, URIC, CAION, CBC, CRP, ANAIFS, GFR #### [address] [address] #### RF, B12 #### [address] [address] Glucose (U) [Mass/Vol] Negative Normal Negative [facility] Comment on above: Performed By: #### C K, CMP, FE, VIDH, MG, ESR, ADIFF, ANEU, URIC, CAION, CBC, CRP, ANAIFS, GFR #### [place] [address] #### RF, B12 #### [place] [address] Ketones Ql (U) Negative Normal Negative [facility] Comment on above: Performed By: #### C K, CMP, FE, VIDH, MG, ESR, ADIFF, ANEU, URIC, CAION, CBC, CRP, ANAIFS, GFR #### [place] [address] #### RF, B12 #### [place] [address] UA Appear Clear Normal Clear [facility] Comment on above: Performed By: #### C K, CMP, FE, VIDH, MG, ESR, ADIFF, ANEU, URIC, CAION, CBC, CRP, ANAIFS, GFR #### [place] [address] #### RF, B12 #### [place] [address] UA Blood Negative Normal Negative [facility] Comment on above: Performed By: #### C K, CMP, FE, VIDH, MG, ESR, ADIFF, ANEU, URIC, CAION, CBC, CRP, ANAIFS, GFR #### [address] [address] #### RF, B12 #### [place] [address] UA Leuk Est Small Abnormal Negative [facility] Comment on above: Performed By: #### C K, CMP, FE, VIDH, MG, ESR, ADIFF, ANEU, URIC, CAION, CBC, CRP, ANAIFS, GFR #### [place] [address] #### RF, B12 #### [place] [address] UA Nitrite Negative Normal Negative [facility] Comment on above: Performed By: #### C K, CMP, FE, VIDH, MG, ESR, ADIFF, ANEU, URIC, CAION, CBC, CRP, ANAIFS, GFR #### [place] [address] #### RF, B12 #### [place] [address] UA pH 6.0 Normal 5.0 - 8.0 [facility] Comment on above: Performed By: #### C K, CMP, FE, VIDH, MG, ESR, ADIFF, ANEU, URIC, CAION, CBC, CRP, ANAIFS, GFR #### [place] [address] #### RF, B12 #### [place] [address] UA Protein Negative Normal Negative [facility] Comment on above: Performed By: #### C K, CMP, FE, VIDH, MG, ESR, ADIFF, ANEU, URIC, CAION, CBC, CRP, ANAIFS, GFR #### [place] [address] #### RF, B12 #### [place] [address] UA Spec Grav 1.010 Abnormal 1.015-1.025 [facility] Comment on above: Performed By: #### C K, CMP, FE, VIDH, MG, ESR, ADIFF, ANEU, URIC, CAION, CBC, CRP, ANAIFS, GFR #### [place] [address] #### RF, B12 #### [address] [address] UA Specimen Type Clean Catch Normal [facility] Comment on above: Performed By: #### C K, CMP, FE, VIDH, MG, ESR, ADIFF, ANEU, URIC, CAION, CBC, CRP, ANAIFS, GFR #### [address] [address] #### RF, B12 #### [place] [address] UA Urobilinogen 0.2 E.U./dL Normal 0.2-1.0 [facility] Comment on above: Performed By: #### C K, CMP, FE, VIDH, MG, ESR, ADIFF, ANEU, URIC, CAION, CBC, CRP, ANAIFS, GFR #### [address] [address] #### RF, B12 #### [place] [address] Urobilinogen (U) [Mass/Vol] Negative Normal Negative [facility] Comment on above: Performed By: #### C K, CMP, FE, VIDH, MG, ESR, ADIFF, ANEU, URIC, CAION, CBC, CRP, ANAIFS, GFR #### [address] [address] #### RF, B12 #### [place] [address] XR CHEST 1 VIEWon 10-20-2024 XR CHEST 1 VIEW ORIGINAL EXAMINATION: ONE XRAY VIEW OF THE CHEST 10/20/2024 12:56 pm COMPARISON: 04/15/2022 HISTORY: ORDERING SYSTEM PROVIDED HISTORY: Reason for Exam: elevated blood pressure FINDINGS: Low lung volumes and hypoventilatory changes. Cardiomediastinal silhouette is borderline prominent which may related to portable technique. Central pulmonary vascular congestion with interstitial pattern reflecting at least mild edema. Redemonstrated 6 mm right lower lobe calcification. Increased left retrocardiac opacification. Left costophrenic angle is obscured. Right costophrenic angle is sharp. No pneumothorax. No acute skeletal abnormality. Lower cervical spondylosis. Severe left glenohumeral joint degenerative change. Thoracic spine changes better visualized on CT chest dated 04/09/2023. IMPRESSION: Low lung volumes with hypoventilatory changes and vascular crowding. Pulmonary edema. Left retrocardiac opacity and obscuration of the left hemidiaphragm, atelectasis and or consolidation with without a superimposed small left pleural effusion. Interpreted by: Roque Perez Preliminary Report By: Roque Perez Electronically signed By Roque Perez Dictated Date: 10/20/2024 1:02:15 PM Prelim Date: 10/20/2024 1:04:52 PM Sign Date: 10/20/2024 1:04:52 PM Ordering Provider: TRINIDAD GARNICA [facility] 36on 10-19-2024 36 Call to Cher. Cher informed of provider's message. Cher repeated back and verbalized understanding. Cher is questioning if there is a different medication patient can try for migraines. Please advise. [address] 10-18-2024 36 Call to Cher. No answer. [place] [address] Call to Yahir Magallon nurse. No answer. LM on . [place] [address] Call to Cher. No answer. LM on to call the office. [place] [address] Please tell them that if she has not had rizatriptan for 12 hours or more since the last dose, then she may be having another issue like stroke or infection. If they think she may be having a stroke, they should send her to the ER. She should immediately stop the rizatriptan. [place] [address] Name of caller: KENIA Sutton Contact phone number: [phone] Relationship to Patient: Yahir Magallon Provider: Dr. Napier Practice:[facility] [place] Chief Complaint/Reason for Call: Cher states that the patient began taking Rizatriptan on 10/11/24 and it is the only new medication the patient has started. Cher states that today before lunch the patient was talking and began to slur her words, although, the patient did not take any of the medication today. Cher states that the patient says she is feeling drugged and sedated. Please advise. Cher states that she have noticed more involuntary movement in the past couple of days and she would like to receive a call back to discuss Dr. Napier's advice and suggestions. Please advise. Best time of day caller can be reached: Any Patient advised that office/PCP has 24-48 business hours to return their call: No 36on 10-11-2024 36 Order faxed over [facility] 36 Name of caller: Cher Contact phone number: [phone] Relationship to Patient: Nurse at [facility] Provider: Dr. Napier Practice: Neurology Chief Complaint/Reason for Call: Cher called in because they received Rizatriptan last evening from their pharmacy, and she she was confused since the patient is currently taking Sumatriptan. Advised that patient med was changed by Dr. Napier. Cher asks to please fax a new order for the Rizatriptan so that they can give it to the patient, as they administer the medications. Please fax to [phone] att: Cher. Best time of day caller can be reached: any Patient advised that office/PCP has 24-48 business hours to return their call: n/a [address] 10-09-2024 36 I have sent in a prescription for rizatriptan to try instead of sumatriptan. 36 S: Patient spoke with [facility] nurse regarding medication question. B: Imitrex 25mg orally prn. A: Patient took one pill on Wednesday- , Wednesday, Wednesday, Wednesday, and 2 pills on , Wednesday, and Wednesday. Patient is concerned she is getting rebound effects as she had the worse migraine then when she took the 1st pill on Wednesday. Patient rates the headache 7-8/10. Denies any nausea, no new vision issues or light sensitivity. Patient wants to know when she could take another pill? Patient has used 6 of the 9 pills. R: Patient advised a message will be sent to the provider and the office will follow up. Patient doesn't use mychart and requesting a call back. Reason for Disposition Caller has NON-URGENT medicine question about med that PCP or specialist prescribed and triager unable to answer question Protocols used: Medication Question [id number] Normal [facility] CBC-Complete Blood Cnt No Di ffon 09-25-2024 Erythrocyte distribution width (RBC) [Ratio] 11.8 % Normal 11.6-14.6 [facility] Comment on above: Order Comment: 182 Performed By: #### L 503.0105, L500.4100, L506.1000, L501.9520, L501.40552, L500.4050, L100.0500, L503.6550, L506.0400 ####[facility] [address] [place], [address] Hematocrit (Bld) [Volume fraction] 40.6 % Normal 37-47 [facility] Comment on above: Order Comment: 182 Performed By: #### L 503.0105, L500.4100, L506.1000, L501.9520, L501.22502, L500.4050, L100.0500, L503.6550, L506.0400 ####[facility] [address] [place], [address] Hemoglobin (Bld) [Mass/Vol] 12.9 g/dL Normal 12.0-15.0 [facility] Comment on above: Order Comment: 182 Performed By: #### L 503.0105, L500.4100, L506.1000, L501.9520, L501.71252, L500.4050, L100.0500, L503.6550, L506.0400 ####[facility] [address] [place], [address] MCH (RBC) [Entitic mass] 32.7 pg High 27.0-32.0 [facility] Comment on above: Order Comment: 182 Performed By: #### L 503.0105, L500.4100, L506.1000, L501.9520, L501.05805, L500.4050, L100.0500, L503.6550, L506.0400 ####[facility] [address] [place], [address] MCHC (RBC) [Mass/Vol] 31.8 g/dL Low 32-36 [facility] Comment on above: Order Comment: 182 Performed By: #### L 503.0105, L500.4100, L506.1000, L501.9520, L501.19122, L500.4050, L100.0500, L503.6550, L506.0400 ####[facility] [address] [place], [address] MCV (RBC) [Entitic vol] 102.8 fL High 81-99 [facility] Comment on above: Order Comment: 182 Performed By: #### L 503.0105, L500.4100, L506.1000, L501.9520, L501.52720, L500.4050, L100.0500, L503.6550, L506.0400 ####[facility] [address] [place], [address] Platelet mean volume (Bld) [Entitic vol] 9.0 fL Normal 6.2-12.0 [facility] Comment on above: Order Comment: 182 Performed By: #### L 503.0105, L500.4100, L506.1000, L501.9520, L501.39945, L500.4050, L100.0500, L503.6550, L506.0400 ####[facility] [address] [place], [address] Platelets (Bld) [#/Vol] 224 10*3/uL Normal 150-450 [facility] Comment on above: Order Comment: 182 Performed By: #### L 503.0105, L500.4100, L506.1000, L501.9520, L501.44845, L500.4050, L100.0500, L503.6550, L506.0400 ####[facility] [address] [place], [address] RBC (Bld) [#/Vol] 3.95 10*6/uL Low 4.2-5.4 [facility] Comment on above: Order Comment: 182 Performed By: #### L 503.0105, L500.4100, L506.1000, L501.9520, L501.21180, L500.4050, L100.0500, L503.6550, L506.0400 ####[facility] [address] [place], [address] RDW SD 44.5 fl High 35.1-43.9 [facility] Comment on above: Order Comment: 182 Performed By: #### L 503.0105, L500.4100, L506.1000, L501.9520, L501.47480, L500.4050, L100.0500, L503.6550, L506.0400 ####[facility] [address] [facility] [place], [address] WBC (Bld) [#/Vol] 5.1 10*3/uL Normal 4.4-11.0 [facility] Comment on above: Order Comment: 182 Performed By: #### L 503.0105, L500.4100, L506.1000, L501.9520, L501.11694, L500.4050, L100.0500, L503.6550, L506.0400 ####[facility] [address] [facility] [place], [address] Comprehensive Metabolic Prof dcon 09-25-2024 Albumin [Mass/Vol] 3.3 g/dL Normal 3.2-5.0 [facility] Comment on above: Order Comment: 182 Performed By: #### L 503.0105, L500.4100, L506.1000, L501.9520, L501.08307, L500.4050, L100.0500, L503.6550, L506.0400 ####[facility] [address] [place], [address] Albumin/Globulin [Mass ratio] 1.2 {ratio} Normal 0.9-2.4 [facility] Comment on above: Order Comment: 182 Performed By: #### L 503.0105, L500.4100, L506.1000, L501.9520, L501.72843, L500.4050, L100.0500, L503.6550, L506.0400 ####[facility] [address] [place], [address] ALK P 83 U/L Normal 45-117 [facility] Comment on above: Order Comment: 182 Performed By: #### L 503.0105, L500.4100, L506.1000, L501.9520, L501.32167, L500.4050, L100.0500, L503.6550, L506.0400 ####[facility] [address] [place], [address] ALT [Catalytic activity/Vol] 23 U/L Normal 13-56 [facility] Comment on above: Order Comment: 182 Performed By: #### L 503.0105, L500.4100, L506.1000, L501.9520, L501.51800, L500.4050, L100.0500, L503.6550, L506.0400 ####[facility] [address] [place], [address] AST [Catalytic activity/Vol] 25 U/L Normal 15-37 [facility] Comment on above: Order Comment: 182 Result Comment: Slig ht Hemolysis, Result may be falsely increased. Performed By: #### L 503.0105, L500.4100, L506.1000, L501.9520, L501.14342, L500.4050, L100.0500, L503.6550, L506.0400 ####[facility] [address] [place], [address] Bilirubin [Mass/Vol] 0.40 mg/dL Normal 0.20-1.00 [facility] Comment on above: Order Comment: 182 Result Comment: For patients on eltrombopag therapy, use of Dimension [place] TBIL is not recommended. Performed By: #### L 503.0105, L500.4100, L506.1000, L501.9520, L501.55830, L500.4050, L100.0500, L503.6550, L506.0400 ####[facility] [address] [place], [address] BUN/CRE 13.1 RATIO Normal 10-20 [facility] [facility] Comment on above: Order Comment: 182 Performed By: #### L 503.0105, L500.4100, L506.1000, L501.9520, L501.69427, L500.4050, L100.0500, L503.6550, L506.0400 ####[facility] [address] [place], [address] CA,Total 9.3 mg/dL Normal 8.5-10.1 [facility] Comment on above: Order Comment: 182 Performed By: #### L 503.0105, L500.4100, L506.1000, L501.9520, L501.65665, L500.4050, L100.0500, L503.6550, L506.0400 ####[facility] [address] [place], [address] Chloride [Moles/Vol] 106 mmol/L Normal 98-107 [facility] Comment on above: Order Comment: 182 Performed By: #### L 503.0105, L500.4100, L506.1000, L501.9520, L501.44957, L500.4050, L100.0500, L503.6550, L506.0400 ####[facility] [address] [place], [address] CO2 [Moles/Vol] 27.0 mmol/L Normal 21.0-32.0 [facility] Comment on above: Order Comment: 182 Performed By: #### L 503.0105, L500.4100, L506.1000, L501.9520, L501.20042, L500.4050, L100.0500, L503.6550, L506.0400 ####[facility] [address] [place], [address] Creatinine [Mass/Vol] 0.84 mg/dL Normal 0.55-1.02 [facility] Comment on above: Order Comment: 182 Result Comment: The validity of the calculated GFR GFRAA in patients over70 years has not been determined. Clinical correlation isessential. Performed By: #### L 503.0105, L500.4100, L506.1000, L501.9520, L501.61462, L500.4050, L100.0500, L503.6550, L506.0400 ####[facility] [address] [place], [place], [id number] EST GFR - AA 87 mL/min Normal >60 [facility] Comment on above: Order Comment: 182 Result Comment: Afri can Finnish GFR Calc Performed By: #### L 503.0105, L500.4100, L506.1000, L501.9520, L501.42264, L500.4050, L100.0500, L503.6550, L506.0400 ####[facility] [address] [place], [address] GAP 5 Normal 5-15 [facility] Comment on above: Order Comment: 182 Performed By: #### L 503.0105, L500.4100, L506.1000, L501.9520, L501.32020, L500.4050, L100.0500, L503.6550, L506.0400 ####[facility] [address] [place], [address] GFR/1.73 sq M.predicted among non-blacks MDRD (S/P/Bld) [Vol rate/Area] 72 mL/min/{1.73_m2} Normal >60 [facility] Comment on above: Order Comment: 182 Result Comment: Non- GFR Calc Performed By: #### L 503.0105, L500.4100, L506.1000, L501.9520, L501.96689, L500.4050, L100.0500, L503.6550, L506.0400 ####[facility] [address] [place], [address] Globulin (S) [Mass/Vol] 2.8 g/dL Normal 2.2-4.2 [facility] Comment on above: Order Comment: 182 Performed By: #### L 503.0105, L500.4100, L506.1000, L501.9520, L501.10450, L500.4050, L100.0500, L503.6550, L506.0400 ####[facility] [address] [place], [address] Glucose [Mass/Vol] 86 mg/dL Normal 74-106 [facility] Comment on above: Order Comment: 182 Performed By: #### L 503.0105, L500.4100, L506.1000, L501.9520, L501.19528, L500.4050, L100.0500, L503.6550, L506.0400 ####[facility] [address] [place], [address] Potassium [Moles/Vol] 4.2 mmol/L Normal 3.5-5.1 [facility] Comment on above: Order Comment: 182 Result Comment: Slig ht Hemolysis, Result may be falsely increased. Performed By: #### L 503.0105, L500.4100, L506.1000, L501.9520, L501.32693, L500.4050, L100.0500, L503.6550, L506.0400 ####[facility] [address] [place], [place], [phone] Sodium [Moles/Vol] 138 mmol/L Normal 136-145 [facility] Comment on above: Order Comment: 182 Performed By: #### L 503.0105, L500.4100, L506.1000, L501.9520, L501.22300, L500.4050, L100.0500, L503.6550, L506.0400 ####[facility] [address] [place], [place], [phone] T PROT 6.1 g/dL Low 6.4-8.2 [facility] Comment on above: Order Comment: 182 Performed By: #### L 503.0105, L500.4100, L506.1000, L501.9520, L501.54597, L500.4050, L100.0500, L503.6550, L506.0400 ####[facility] [address] [place], [place], [phone] Urea nitrogen [Mass/Vol] 11 mg/dL Normal 7-18 [facility] Comment on above: Order Comment: 182 Performed By: #### L 503.0105, L500.4100, L506.1000, L501.9520, L501.97398, L500.4050, L100.0500, L503.6550, L506.0400 ####[facility] [address] [place], [place], [phone] Ferritinon 09-25-2024 Ferritin [Mass/Vol] 61 ng/mL Normal 8-252 [facility] Comment on above: Order Comment: 182 Performed By: #### L 503.0105, L500.4100, L506.1000, L501.9520, L501.05838, L500.4050, L100.0500, L503.6550, L506.0400 ####[facility] [address] [place], [address] Free T3on 4 Free T3 [Mass/Vol] 2.3 pg/mL Normal 2.18-3.98 [facility] Comment on above: Order Comment: 182 Performed By: #### L 503.0105, L500.4100, L506.1000, L501.9520, L501.17988, L500.4050, L100.0500, L503.6550, L506.0400 ####[facility] [address] [place], [address] MAGALI + Protein Elect, Serumon 09-25-2024 Albumin [Mass/Vol] 3.4 g/dL Normal 2.9-4.4 [facility] Comment on above: Order Comment: NUNK Performed By: #### L 100.0100, L500.4050, L3100.3425 ####[facility] [address] [place], [address] Albumin/Globulin [Mass ratio] 1.5 {ratio} Normal 0.7-1.7 [facility] Comment on above: Order Comment: NUNK Performed By: #### L 100.0100, L500.4050, L3100.3425 ####[facility] [address] [place], [address] MLJOU-5-XIHP 0.3 g/dL Normal 0.0-0.4 [facility] Comment on above: Order Comment: NUNK Performed By: #### L 100.0100, L500.4050, L3100.3425 ####[facility] [address] [place], [address] GJYOS-1-SNNC 0.7 g/dL Normal 0.4-1.0 [facility] Comment on above: Order Comment: NUNK Performed By: #### L 100.0100, L500.4050, L3100.3425 ####[facility] [address] [place], [address] BETA GLOBULIN 0.8 g/dL Normal 0.7-1.3 [facility] Comment on above: Order Comment: NUNK Performed By: #### L 100.0100, L500.4050, L3100.3425 ####[facility] [address] [place], [address] GAMMA GLOBULIN 0.5 g/dL Normal 0.4-1.8 [facility] Comment on above: Order Comment: NUNK Performed By: #### L 100.0100, L500.4050, L3100.3425 ####[facility] [address] [place], [address] Globulin (S) [Mass/Vol] 2.3 g/dL Normal 2.2-3.9 [facility] Comment on above: Order Comment: NUNK Performed By: #### L 100.0100, L500.4050, L3100.3425 ####[facility] [address] [place], [address] MAGALI RESULT,S Comment Normal . [facility] Comment on above: Order Comment: NUNK Result Comment: No m onoclonality detected. Performed By: #### L 100.0100, L500.4050, L3100.3425 ####[facility] [address] [place], [address] IMMUNOGLOB A QN 24 mg/dL Low 87-352 [facility] Comment on above: Order Comment: NUNK Result Comment: Resu lt confirmed on concentration. Performed By: #### L 100.0100, L500.4050, L3100.3425 ####[facility] [address] [place], [address] IMMUNOGLOB G QN 546 mg/dL Low 586-1602 [facility] Comment on above: Order Comment: NUNK Performed By: #### L 100.0100, L500.4050, L3100.3425 ####[facility] [address] [place], [address] IMMUNOGLOB M QN 57 mg/dL Normal 26-217 [facility] Comment on above: Order Comment: NUNK Performed By: #### L 100.0100, L500.4050, L3100.3425 ####[facility] [address] [place], [address] M-Mitul Not Observed Normal Not Observed [facility] Comment on above: Order Comment: NUNK Performed By: #### L 100.0100, L500.4050, L3100.3425 ####[facility] [address] [place], [place], [id number] NOTE: Comment Normal . [facility] Comment on above: Order Comment: NUNK Result Comment: Prot ein electrophoresis scan will follow via computer,mail, or summer camp counselor delivery.Performed at: [place] [id number] Director: Norberto Castillo PhD, Phone: [phone] Performed By: #### L 100.0100, L500.4050, L3100.3425 ####[facility] [address] [place], [place], [id number] Protein [Mass/Vol] 5.7 g/dL Low 6.0-8.5 [facility] Comment on above: Order Comment: NUNK Performed By: #### L 100.0100, L500.4050, L3100.3425 ####[facility] [address] [place], [address] Lipid Profileon 09-25-2024 Cholesterol [Mass/Vol] 176 mg/dL Normal 200 [facility] Comment on above: Order Comment: 182 Result Comment: <200 mg/dL Desirable 200-240 mg/dL Borderline >240 mg/dL High Risk Performed By: #### L 503.0105, L500.4100, L506.1000, L501.9520, L501.88525, L500.4050, L100.0500, L503.6550, L506.0400 ####[facility] [address] [place], [address] Cholesterol in HDL [Mass/Vol] 77 mg/dL Normal [facility] Comment on above: Order Comment: 182 Result Comment: The drugs N-Acetylcysteine and Metamizole may falselydepress this assay. Reference Range HDL <40 mg/dL Low HDL Cholesterol HDL >or= 60 mg/dL High HDL Cholesterol Performed By: #### L 503.0105, L500.4100, L506.1000, L501.9520, L501.69584, L500.4050, L100.0500, L503.6550, L506.0400 ####[facility] [address] [place], [address] Cholesterol in LDL [Mass/Vol] 82 mg/dL Normal 0-130 [facility] Comment on above: Order Comment: 182 Performed By: #### L 503.0105, L500.4100, L506.1000, L501.9520, L501.47001, L500.4050, L100.0500, L503.6550, L506.0400 ####[facility] [address] [place], [address] Cholesterol in VLDL [Mass/Vol] 17 mg/dL Normal 5-40 [facility] Comment on above: Order Comment: 182 Performed By: #### L 503.0105, L500.4100, L506.1000, L501.9520, L501.37727, L500.4050, L100.0500, L503.6550, L506.0400 ####[facility] [address] [place], [address] Triglyceride [Mass/Vol] 85 mg/dL Normal [facility] Comment on above: Order Comment: 182 Result Comment: The drugs N-Acetylcysteine and Metamizole may falselydepress this assay.Serum Triglycerides Reference Interval Normal <150 mg/dL Borderline high 150 - 199 mg/dL High 200 - 499 mg/dL Very High > or = 500 mg/dL Performed By: #### L 503.0105, L500.4100, L506.1000, L501.9520, L501.55924, L500.4050, L100.0500, L503.6550, L506.0400 ####[facility] [address] [place], [address] T4 Free Directon 09-25-2024 T4 FREE DIRECT 1.35 ng/dL Normal 0.76-1.46 [facility] Comment on above: Order Comment: 182 Performed By: #### L 503.0105, L500.4100, L506.1000, L501.9520, L501.29179, L500.4050, L100.0500, L503.6550, L506.0400 ####[facility] [address] [place], [address] Thyroid Stim Hormone (TSH)on 09-25-2024 TSH 3.380 uIU/mL Normal 0.358-3.740 [facility] Comment on above: Order Comment: 182 Performed By: #### L 503.0105, L500.4100, L506.1000, L501.9520, L501.66497, L500.4050, L100.0500, L503.6550, L506.0400 ####[facility] [address] [place], [address] Vitamin B12on 09-25-2024 Cobalamin (Vitamin B12) [Mass/Vol] 370 pg/mL Normal 211-911 [facility] Comment on above: Order Comment: 182 Performed By: #### L 503.0105, L500.4100, L506.1000, L501.9520, L501.93742, L500.4050, L100.0500, L503.6550, L506.0400 ####[facility] [address] [place], [address] Vitamin D,25 Hydroxyon 09-25 Vitamin D 25-OH 50.6 ng/mL Normal [facility] Comment on above: Order Comment: 182 Result Comment: Renetta min D 25(OH) Status Range Deficiency <20 ng/mL (50nmol/L) Insufficiency 20 - 30 ng/mL (50 - 75 nmol/L) Sufficiency 30 - 100 ng/mL (75 - 250 nmol/L) Toxicity >100 ng/mL (>250 nmol/L) Performed By: #### L 503.0105, L500.4100, L506.1000, L501.9520, L501.08327, L500.4050, L100.0500, L503.6550, L506.0400 ####[facility] [address] [place], [address] Knee 3 Viewson 09-22-2024 Knee 3 Views Normal [facility] Orthopedic Visit Reporton Orthopedic Visit Report Normal [facility] CBC W/Diff, Automatedon 09-02 Absolute Lymph 1.39 X10 3/uL Normal 0.83-4.51 [facility] Comment on above: Performed By: #### L 100.0100, L500.4050, L3100.3425 ####[facility] [address] [place], [address] Absolute Neut 3.9 X10 3/uL Normal 2.0-7.7 [facility] Comment on above: Performed By: #### L 100.0100, L500.4050, L3100.3425 ####[facility] [address] [place], [address] Basophils/100 WBC (Bld) 0.5 % Normal 0-1 [facility] Comment on above: Performed By: #### L 100.0100, L500.4050, L3100.3425 ####[facility] [address] [place], [address] Eosinophils/100 WBC (Bld) 1.6 % Normal 0-5 [facility] Comment on above: Performed By: #### L 100.0100, L500.4050, L3100.3425 ####[facility] [address] [place], [address] Erythrocyte distribution width (RBC) [Ratio] 11.9 % Normal 11.6-14.6 [facility] Comment on above: Performed By: #### L 100.0100, L500.4050, L3100.3425 ####[facility] [address] [place], [address] Hematocrit (Bld) [Volume fraction] 38.7 % Normal 37-47 [facility] Comment on above: Performed By: #### L 100.0100, L500.4050, L3100.3425 ####[facility] [address] [place], [address] Hemoglobin (Bld) [Mass/Vol] 13.0 g/dL Normal 12.0-15.0 [facility] Comment on above: Performed By: #### L 100.0100, L500.4050, L3100.3425 ####[facility] [address] [place], [address] IG% 0.300 Normal 0.0-0.9 [facility] Comment on above: Result Comment: IG% - Immature Granulocytes (promyelocytes, myelocytes andmetamyelocytes) > 1% indicates that a LEFT SHIFT is Present. Performed By: #### L 100.0100, L500.4050, L3100.3425 ####[facility] [address] [place], [address] Lymphocytes/100 WBC (Bld) 22.1 % Normal 19-41 [facility] Comment on above: Performed By: #### L 100.0100, L500.4050, L3100.3425 ####[facility] [address] [place], [address] MCH (RBC) [Entitic mass] 33.3 pg High 27.0-32.0 [facility] Comment on above: Performed By: #### L 100.0100, L500.4050, L3100.3425 ####[facility] [address] [place], [address] MCHC (RBC) [Mass/Vol] 33.6 g/dL Normal 32-36 [facility] Comment on above: Performed By: #### L 100.0100, L500.4050, L3100.3425 ####[facility] [address] [place], [address] MCV (RBC) [Entitic vol] 99.2 fL High 81-99 [facility] Comment on above: Performed By: #### L 100.0100, L500.4050, L3100.3425 ####[facility] [address] [place], [address] Monocytes/100 WBC (Bld) 13.2 % High 0-10 [facility] Comment on above: Performed By: #### L 100.0100, L500.4050, L3100.3425 ####[facility] [address] [place], [address] Neutrophils/100 WBC (Bld) 62.3 % Normal 47-70 [facility] Comment on above: Performed By: #### L 100.0100, L500.4050, L3100.3425 ####[facility] [address] [place], [address] Nucleated RBC (Bld) [#/Vol] 0 10*3/uL Normal 0-5 [facility] Comment on above: Performed By: #### L 100.0100, L500.4050, L3100.3425 ####[facility] [address] [place], [address] Platelet mean volume (Bld) [Entitic vol] 8.9 fL Normal 6.2-12.0 [facility] Comment on above: Performed By: #### L 100.0100, L500.4050, L3100.3425 ####[facility] [address] [place], [address] Platelets (Bld) [#/Vol] 245 10*3/uL Normal 150-450 [facility] Comment on above: Performed By: #### L 100.0100, L500.4050, L3100.3425 ####[facility] [address] [place], [address] RBC (Bld) [#/Vol] 3.90 10*6/uL Low 4.2-5.4 [facility] Comment on above: Performed By: #### L 100.0100, L500.4050, L3100.3425 ####[facility] [address] [place], [address] RDW SD 43.0 fl Normal 35.1-43.9 [facility] Comment on above: Performed By: #### L 100.0100, L500.4050, L3100.3425 ####[facility] [address] [place], [address] WBC (Bld) [#/Vol] 6.3 10*3/uL Normal 4.4-11.0 [facility] Comment on above: Performed By: #### L 100.0100, L500.4050, L3100.3425 ####[facility] [address] [place], [address] [facility] Albumin [Mass/Vol] 3.5 g/dL Normal 3.2-5.0 [facility] Comment on above: Order Comment: UNK Performed By: #### L 100.0100, L500.4050, L3100.3425 ####[facility] [address] [place], [address] Albumin/Globulin [Mass ratio] 1.2 {ratio} Normal 0.9-2.4 [facility] Comment on above: Order Comment: UNK Performed By: #### L 100.0100, L500.4050, L3100.3425 ####[facility] [address] [place], [address] ALK P 81 U/L Normal 45-117 [facility] Comment on above: Order Comment: UNK Performed By: #### L 100.0100, L500.4050, L3100.3425 ####[facility] [address] [place], [address] ALT [Catalytic activity/Vol] 26 U/L Normal 13-56 [facility] Comment on above: Order Comment: UNK Performed By: #### L 100.0100, L500.4050, L3100.3425 ####[facility] [address] [place], [address] AST [Catalytic activity/Vol] 18 U/L Normal 15-37 [facility] Comment on above: Order Comment: UNK Performed By: #### L 100.0100, L500.4050, L3100.3425 ####[facility] [address] [place], [address] Bilirubin [Mass/Vol] 0.30 mg/dL Normal 0.20-1.00 [facility] Comment on above: Order Comment: UNK Result Comment: For patients on eltrombopag therapy, use of Dimension Constantine TBIL is not recommended. Performed By: #### L 100.0100, L500.4050, L3100.3425 ####[facility] [address] [place], [address] BUN/CRE 18.6 RATIO Normal 10-20 [facility] Comment on above: Order Comment: UNK Performed By: #### L 100.0100, L500.4050, L3100.3425 ####[facility] [address] [place], [address] CA,Total 9.2 mg/dL Normal 8.5-10.1 [facility] Comment on above: Order Comment: UNK Performed By: #### L 100.0100, L500.4050, L3100.3425 ####[facility] [address] [place], [address] Chloride [Moles/Vol] 106 mmol/L Normal 98-107 [facility] Comment on above: Order Comment: UNK Performed By: #### L 100.0100, L500.4050, L3100.3425 ####[facility] [address] [place], [address] CO2 [Moles/Vol] 26.0 mmol/L Normal 21.0-32.0 [facility] Comment on above: Order Comment: UNK Performed By: #### L 100.0100, L500.4050, L3100.3425 ####[facility] [address] [place], [address] Creatinine [Mass/Vol] 1.13 mg/dL High 0.55-1.02 [facility] Comment on above: Order Comment: UNK Result Comment: The validity of the calculated GFR GFRAA in patients over70 years has not been determined. Clinical correlation isessential. Performed By: #### L 100.0100, L500.4050, L3100.3425 ####[facility] [address] [place], [address] EST GFR - AA 62 mL/min Normal >60 [facility] Comment on above: Order Comment: UNK Result Comment: Afri can Finnish GFR Calc Performed By: #### L 100.0100, L500.4050, L3100.3425 ####[facility] [address] [place], [address] GAP 4 Low 5-15 [facility] Comment on above: Order Comment: UNK Performed By: #### L 100.0100, L500.4050, L3100.3425 ####[facility] [address] [place], [address] GFR/1.73 sq M.predicted among non-blacks MDRD (S/P/Bld) [Vol rate/Area] 51 mL/min/{1.73_m2} Low >60 [facility] Comment on above: Order Comment: UNK Result Comment: Non- GFR Calc Performed By: #### L 100.0100, L500.4050, L3100.3425 ####[facility] [address] [place], [address] Globulin (S) [Mass/Vol] 2.9 g/dL Normal 2.2-4.2 [facility] Comment on above: Order Comment: UNK Performed By: #### L 100.0100, L500.4050, L3100.3425 ####[facility] [address] [place], [address] Glucose [Mass/Vol] 104 mg/dL Normal 74-106 [facility] Comment on above: Order Comment: UNK Result Comment: Fast ing Glucose result from 100 to 125 mg/dLsuggests IMPAIRED HOMEOSTASIS per A.D.A. criteria. Performed By: #### L 100.0100, L500.4050, L3100.3425 ####[facility] [address] [place], [address] Potassium [Moles/Vol] 4.4 mmol/L Normal 3.5-5.1 [facility] Comment on above: Order Comment: UNK Performed By: #### L 100.0100, L500.4050, L3100.3425 ####[facility] [address] [place], [address] Sodium [Moles/Vol] 137 mmol/L Normal 136-145 [facility] Comment on above: Order Comment: UNK Performed By: #### L 100.0100, L500.4050, L3100.3425 ####[facility] [address] [place], [address] T PROT 6.4 g/dL Normal 6.4-8.2 [facility] Comment on above: Order Comment: UNK Performed By: #### L 100.0100, L500.4050, L3100.3425 ####[facility] [address] [place], [address] Urea nitrogen [Mass/Vol] 21 mg/dL High 7-18 [facility] Comment on above: Order Comment: UNK Performed By: #### L 100.0100, L500.4050, L3100.3425 ####[facility] [address] [place], [address] Gastroenterology Visit Repor [facility] 09-20-2024 Gastroenterology Visit Report Normal [facility] 36on 09-18-2024 36 Spoke with cher from [facility]. Verbal order has been given 36 Call to [facility]. Lukas on for Nurse to call the office. Please send patient to the back line when patient returns call 36on 09-14-2024 36 Call to [facility]. Lukas on for Nurse to call the office. Please send patient to the back line when patient returns call 36on 09-12-2024 36 S: Patient spoke with [facility] nurse regarding medication question B: valbenazine tosylate (Ingrezza) 40 MG capsule A: Patient asking for someone to call Nurses at facility where she lives to update them that her dosage of Ingrezza has been decreased to 40mg R: Called facility Nurse and left detailed message on Nurse voicemail advising of updated dosage of valbenazine tosylate (Ingrezza) as documented in EMR Reason for Disposition [1] Prescription prescribed recently is not at pharmacy AND [2] triager has access to patient's EMR AND [3] prescription is recorded in the EMR Protocols used: Medication Question [facility] Call to Yahir Magallon. Lm on for Nurse to call the office. Please send patient to the back line when patient returns call. Thank you. 38 Pt called in stating she lives in assisted living and the nurse is requesting either a clinical note faxed over to fax # [phone] or a verbal call to # [phone] in regards to this medication dosage change. Please advise 36 40 mg dose added [place] [id number] Please help her switch from 60 mg to 40 mg Ingrezza [place] [id number] Please see other te [place] [id number] Message released to patient as written. Please stop the Ingrezza 60 and I will send in a prescription for the Ingrezza 40" Patient's further questions if applicable: Steve is requesting to have Ingrezza 40 sent to the [facility]. Patient express understanding; no further questions Were all questions from office addressed or relayed to the patient from encounter: Yes [place] [id number] Lm for patient to call the office back, please relay providers message. 36on 09-11-2024 36 She can stop the 60 mg Ingrezza and I will send a prescription for the 40 mg Ingrezza. 36 Patient called psychiatrist and was told to follow up with Dr. Napier because the Ingrezza was prescribed by him. This is her second call today. Dr. Napier increased her dose on 09/01/24. She is asking if she should continue with the increased dose of Ingrezza as she feels the following symptoms of extreme depression, did not trust anyone and had a hard time sleeping is from the above medication. She resides in a nursing facility. She is just calling back to see what she should do. Patient was talking rapidly during the call and was very repetitive. She states "I do have bipolar and am dealing with that. I called my counselor today." Denies any suicidal or homicidal ideation. She is feeling better than this morning. She just wants to know if it could have been caused by the above medication. Advised patient the message was sent to physician and the office will call back once the provider reviews the message. 36 Duplicate ticket Reason for Disposition Caller has already spoken with another triager or PCP AND has further questions AND triager able to answer questions. Protocols used: NO CONTACT OR DUPLICATE CONTACT [id number] 36 S: Patient spoke with [facility] nurse regarding depression B: Onset of symptoms/concern A: Believes her increased depression is due to the increased dosage of Ingrezza. States she has problems trusting other currently. Lives in assisted living facility and states this is affecting her quality of life recently. Called her counselor first who advised she call Neuro to change medication. Admits to history of Bipolar. Denies thoughts of wanting to harm herself or plan to harm herself. R: TE to office for review and follow up with the patient. Patient also states she is going to call her psychiatrist today for further care. Patient understands care advice. No further needs at this time. Patient instructed to call back with new or worsening symptoms. Reason for Disposition Symptoms interfere with work or school Protocols used: [id number] Orthopedic Visit Reporton Orthopedic Visit Report [facility] 36on 09-04-2024 36 [facility] process Ingrezza for pt. New dose rx pended if appropriate. Thank you Office Visiton 09-01-2024 Follow-up visit [id number] Steve Fagan 1955 F Date Provider Department Center 09/01/2024 [id number] NAPIER [facility] NURYS None Family History Problem Relation Age of Onset Alcohol abuse Mother Heart disease Sister Bipolar disorder Mother Stroke Sister Cancer Brother Emphysema Father Family Status - Relation Status Age at Mother Sister Alive Brother Father Sister Alive Sister Alive Level of Service:13895 MO OFFICE/OUTPATIENT ESTABLISHED MOD MDM 30 MIN Reason for Visit and Comments: Follow-up [344524] Abnl Movement [748] Progress Noteon 09-01-2024 Progress Note [facility] [address] [facility] [address] Dept: [phone] Dept Loc: [phone] Robby Napier MD Thank you for your kind request for a neurological consultation on this patient. CHIEF COMPLAINT: Chief Complaint Patient presents with Follow-up Abnl Movement HISTORY OF PRESENT ILLNESS: The patient is a 69 y.o. person who returns with movements . She reports that they are much better. She still has the severity is much better eitwith the Ingreazza. She is still having the eye closure. She still has headaches. Qulipta caused nausea, weight loss and headaches. She reports that she is having headaches. Past Medical History: has a past medical history of Anxiety, Asthma, Bipolar 1 disorder ([facility]), Bipolar depression (CMS/HCC) ([facility]), Cerebral palsy ([facility]), Cervical spine degeneration, COPD (chronic obstructive pulmonary disease) ([facility]), Dysphasia, Gait abnormality, GERD (gastroesophageal reflux disease), Hypercholesteremia, Hyperreflexia, Hypoglycemia, Hypothyroidism, IBS (irritable bowel syndrome), Myalgia, Myositis, Rhinitis, and Urinary incontinence. She reports that she was diagnosed with a stroke in 2020 at [place]. I do not have those records. Past Surgical History: has a past surgical history that includes Leg Surgery; Carpal tunnel release (Left); Shoulder surgery; Nasal septum surgery; Appendectomy; and Cholecystectomy. Medications: Current Outpatient Medications: Acetaminophen (TYLENOL 8 HOUR PO), Take by mouth., Disp: , Rfl: albuterol (2.5 MG/3ML) 0.083% nebulizer solution, , Disp: , Rfl: albuterol 108 (90 Base) MCG/ACT inhaler, Inhale 2 puffs every 6 hours as needed for wheezing., Disp: , Rfl: ammonium lactate (Amlactin) 12 % cream, APPLY TO ELBOWS ONCE A DAY, Disp: , Rfl: aspirin 81 MG EC tablet, Take 1 tablet by mouth daily., Disp: , Rfl: BUDESONIDE IN, Inhale., Disp: , Rfl: Calcium Carbonate-Vitamin D 500-5 MG-MCG tablet, Take by mouth., Disp: , Rfl: carboxymethylcellulo se (Artificial Tears) 1 % ophthalmic solution, 1 drop 3 times daily., Disp: , Rfl: cetirizine (ZyrTEC) 10 MG tablet, Take by mouth., Disp: , Rfl: clopidogrel (Plavix) 75 MG tablet, Take by mouth daily., Disp: , Rfl: Cyanocobalamin (B-12) 1000 MCG sublingual tablet, Place under the tongue., Disp: , Rfl: Diclofenac Sodium (Voltaren) 1 % gel, Apply topically 2 times daily., Disp: , Rfl: ferrous sulfate 325 (65 Fe) MG tablet, Take 325 mg by mouth daily (with breakfast)., Disp: , Rfl: fluticasone (Flonase) 50 MCG/ACT nasal spray, Administer 1 spray into each nostril daily. Shake gently. Before first use, prime pump. After use, clean tip and replace cap., Disp: , Rfl: FORMOTEROL FUMARATE IN, Inhale., Disp: , Rfl: gabapentin (Neurontin) 400 MG capsule, Take 400 mg by mouth 3 times daily., Disp: , Rfl: HYDROcodone-acetamin ophen ([place]) 5-325 MG tablet, , Disp: , Rfl: hydrocortisone 2.5 % cream, Apply topically 2 times daily., Disp: , Rfl: hydrOXYzine HCl (Atarax) 25 MG tablet, Take by mouth., Disp: , Rfl: ibandronate (Boniva) 150 MG tablet, Take 150 mg by mouth every 30 (thirty) days. Take in morning with full glass of water on an empty stomach. No food, drink, meds, or lying down for 60 minutes after., Disp: , Rfl: lactase (Lactaid) 3000 units tablet, Take 3,000 Units by mouth in the morning and 3,000 Units at noon and 3,000 Units in the evening. Take with meals., Disp: , Rfl: lamoTRIgine (LAMICTAL PO), Take 100 mg by mouth Nightly., Disp: , Rfl: lamoTRIgine (LaMICtal) 200 MG tablet, Take 200 mg by mouth 2 times daily., Disp: , Rfl: levothyroxine (Synthroid, Levoxyl) 75 MCG tablet, Take by mouth every morning (before breakfast)., Disp: , Rfl: losartan (Cozaar) 25 MG tablet, Take by mouth., Disp: , Rfl: magnesium oxide (Mag-Ox) 400 mg tablet, 400 mg daily., Disp: , Rfl: meclizine (Antivert) 12.5 MG tablet, Take 12.5 mg by mouth 3 times daily as needed for dizziness., Disp: , Rfl: Multiple Vitamin (multivitamin) capsule, Take 1 capsule by mouth daily., Disp: , Rfl: nystatin (Mycostatin) 000302 UNIT/GM powder, Apply topically 2 times daily., Disp: , Rfl: polycarbophil (Fiber-Lax) 625 MG tablet, Take by mouth daily., Disp: , Rfl: polyethylene glycol, PEG, 3350 (Miralax) 17 g packet, Take by mouth., Disp: , Rfl: prednisoLONE sodium phosphate (Inflamase Forte) 1 % ophthalmic solution, 1 drop in the morning and 1 drop at noon and 1 drop in the evening and 1 drop before bedtime., Disp: , Rfl: promethazine (Phenergan) 25 MG tablet, Take by mouth., Disp: , Rfl: RABEprazole (Aciphex) 20 MG EC tablet, Take by mouth. Do not crush, chew, or split., Disp: , Rfl: rosuvastatin (Crestor) 5 MG tablet, Take 5 mg by mouth daily., Disp: , Rfl: sucralfate (Carafate) 1 g tablet, Take by mouth 4 times daily (before meals and nightly)., Disp: , Rfl: tiZANidine (Zanaflex) 4 MG capsule, Take 4 (more content not included)... Normal [facility] No Panel Informationon 08-15 Robby Napier MD 08/15/2024 6:03 PM EEG REPORT Patient Name: Steve Fagan : 1955 PROVIDER REQUESTING STUDY: Dr. Napier REASON FOR EXAM: syncope and collapse HISTORY: Steve Fagan is a 69 y.o. with history of syncope and collapse MEDICATIONS: Current Outpatient Medications: Acetaminophen (TYLENOL 8 HOUR PO), Take by mouth., Disp: , Rfl: albuterol (2.5 MG/3ML) 0.083% nebulizer solution, , Disp: , Rfl: ammonium lactate (Amlactin) 12 % cream, APPLY TO ELBOWS ONCE A DAY, Disp: , Rfl: aspirin 81 MG EC tablet, Take 1 tablet by mouth daily., Disp: , Rfl: Atogepant (Qulipta) 30 MG tablet, Take 1 tablet by mouth daily., Disp: 90 tablet, Rfl: 3 BUDESONIDE IN, Inhale., Disp: , Rfl: Calcium Carbonate-Vitamin D 500-5 MG-MCG tablet, Take by mouth., Disp: , Rfl: carboxymethylcellulo se (Artificial Tears) 1 % ophthalmic solution, 1 drop 3 times daily., Disp: , Rfl: cetirizine (ZyrTEC) 10 MG tablet, Take by mouth., Disp: , Rfl: clopidogrel (Plavix) 75 MG tablet, Take by mouth daily., Disp: , Rfl: Cyanocobalamin (B-12) 1000 MCG sublingual tablet, Place under the tongue., Disp: , Rfl: Deutetrabenazine ER (Austedo XR) 30 MG tablet sustained-release 24 hour, Take 1 tablet by mouth every morning. Do not start before July 27, 2024., Disp: 90 tablet, Rfl: 2 Deutetrabenazine ER (Austedo XR) 30 MG tablet sustained-release 24 hour, Take 1 tablet by mouth daily., Disp: 30 tablet, Rfl: 11 diazePAM (Valium) 10 MG tablet, Take 1 tablet (10 mg) by mouth Once for 1 dose. 2 hours prior to the MRI, Disp: 1 tablet, Rfl: 0 Diclofenac Sodium (Voltaren) 1 % gel, Apply topically 2 times daily., Disp: , Rfl: ferrous sulfate 325 (65 Fe) MG tablet, Take 325 mg by mouth daily (with breakfast)., Disp: , Rfl: fluticasone (Flonase) 50 MCG/ACT nasal spray, Administer 1 spray into each nostril daily. Shake gently. Before first use, prime pump. After use, clean tip and replace cap., Disp: , Rfl: FORMOTEROL FUMARATE IN, Inhale., Disp: , Rfl: gabapentin (Neurontin) 400 MG capsule, Take 400 mg by mouth 3 times daily., Disp: , Rfl: HYDROcodone-acetamin ophen ([place]) 5-325 MG tablet, , Disp: , Rfl: hydrocortisone 2.5 % cream, Apply topically 2 times daily., Disp: , Rfl: hydrOXYzine HCl (Atarax) 25 MG tablet, Take by mouth., Disp: , Rfl: ibandronate (Boniva) 150 MG tablet, Take 150 mg by mouth every 30 (thirty) days. Take in morning with full glass of water on an empty stomach. No food, drink, meds, or lying down for 60 minutes after., Disp: , Rfl: lactase (Lactaid) 3000 units tablet, Take 3,000 Units by mouth in the morning and 3,000 Units at noon and 3,000 Units in the evening. Take with meals., Disp: , Rfl: lamoTRIgine (LAMICTAL PO), Take 300 mg by mouth daily., Disp: , Rfl: lamoTRIgine (LaMICtal) 200 MG tablet, Take 200 mg by mouth 2 times daily., Disp: , Rfl: levothyroxine (Synthroid, Levoxyl) 75 MCG tablet, Take by mouth every morning (before breakfast)., Disp: , Rfl: losartan (Cozaar) 25 MG tablet, Take by mouth., Disp: , Rfl: magnesium oxide (Mag-Ox) 400 mg tablet, 400 mg daily., Disp: , Rfl: meclizine (Antivert) 12.5 MG tablet, Take 12.5 mg by mouth 3 times daily as needed for dizziness., Disp: , Rfl: Multiple Vitamin (multivitamin) capsule, Take 1 capsule by mouth daily., Disp: , Rfl: nystatin (Mycostatin) 926349 UNIT/GM powder, Apply topically 2 times daily., Disp: , Rfl: polycarbophil (Fiber-Lax) 625 MG tablet, Take by mouth daily., Disp: , Rfl: polyethylene glycol, PEG, 3350 (Miralax) 17 g packet, Take by mouth., Disp: , Rfl: prednisoLONE sodium phosphate (Inflamase Forte) 1 % ophthalmic solution, 1 drop in the morning and 1 drop at noon and 1 drop in the evening and 1 drop before bedtime., Disp: , Rfl: promethazine (Phenergan) 25 MG tablet, Take by mouth., Disp: , Rfl: RABEprazole (Aciphex) 20 MG EC tablet, Take by mouth. Do not crush, chew, or split., Disp: , Rfl: rosuvastatin (Crestor) 5 MG tablet, Take 5 mg by mouth daily., Disp: , Rfl: sucralfate (Carafate) 1 g tablet, Take by mouth 4 times daily (before meals and nightly)., Disp: , Rfl: tiZANidine (Zanaflex) 4 MG capsule, Take 4 mg by mouth 3 times daily., Disp: , Rfl: tiZANidine (Zanaflex) 6 MG capsule, Take by mouth 3 times daily., Disp: , Rfl: triamcinolone (Kenalog) 0.1 % cream, Apply topically 2 times daily., Disp: , Rfl: valbenazine tosylate (Ingrezza) 40 MG capsule, Take 1 capsule (40 mg) by mouth daily., Disp: 90 capsule, Rfl: 1 VITAMIN D PO, Take by mouth., Disp: , Rfl: TECHNICAL ASPECTS: This routine scalp EEG study without video was carried out. Scalp electrodes were positioned in person by an x ray technologist, following patient education, according to the 10-20 International system of electrode placement and maintained for integrity and quality of the recording. EEG data with video (more content not included)... [place] [id number] 08-02-2024 36 Message released to patient as written. Patient's further questions if applicable: FYI: Patient states that she scheduled her EEG for 08/15/24 and is seeing her PCP on 08/03/24. Patient states that she wants to make sure that Dr. Napier is aware of her discontinuing her Qulipta. Were all questions from office addressed or relayed to the patient from encounter: Yes 36 Lm for patient to call the office back, please relay providers message. She can call [facility] to schedule the EEG [phone] [place] [id number] 08-01-2024 36 Please have her on a cancellation list to see her sooner. Will order an EEG to check for seizures. She should discuss the passing out with her PCP. Normal [facility] 36 Forwarding to provider for review and advice. 36 Name of caller: Steve Contact phone number: [phone] Relationship to Patient: patient Provider: Dr. Napier Practice: Neurology Chief Complaint/Reason for Call: Steve called to advise Dr. Napier of what has been happening with her. Steve stated that on Wednesday she usually receives communion. Steve stated that she could not say the prayer, as she was confused, and it was garbled, then she passed out. They patted her on the cheek and she woke up and received communion. Steve stated that she was fine after that. Steve advised that after she started on the Qlipta she was very sick and it did not help the migraines. Steve went to see her PCP and he took her off of the Qlipta on 07/27/24. Please be advised. Best time of day caller can be reached: any Patient advised that office/PCP has 24-48 business hours to return their call: Yes 36on 07-20-2024 36 Cher has been notified 36 Lm for Yahir Magallon nurse to call the office back, please relay providers message. LABORATORYOrdered By: SYSTEM SYSTEM on 07-20-2024 Basophils (Bld) [#/Vol] 0.0 103/mcL Normal 0.0 - 0.2 10^3/mcL AO Workflow SS Basophils/100 WBC (Bld) 0.8 % Normal 0.0 - 2.5 % AO Workflow SS Calcium [Mass/Vol] 9.0 mg/dL Normal 8.4 - 10. 2 mg/dL AO ADM SS Chloride [Moles/Vol] 103 mmol/L Normal 98 - 10 7 mmol/L AO ADM SS CO2 [Moles/Vol] 28 mmol/L Normal 23 - 31 mmol/L AO ADM SS Creatinine [Mass/Vol] 0.89 mg/dL Normal 0.55 - 1.02 mg/dL AO ADM SS Comment on above: Interpretive Data: T esting performed on Siemens Dimension EXL analyzer using a modified kinetic Matt technique. Electrolyte Balance 8.0 mEq/L Normal 4.0 - 15 .0 mEq/L AO ADM SS Eosinophil, Absolute 0.1 103/mcL Normal 0.0 - 0 .4 10^3/mcL AO Workflow SS Eosinophils/100 WBC (Bld) 3.1 % Normal 0.0 - 7.0 % AO Workflow SS Erythrocyte distribution width (RBC) [Ratio] 13.1 % Normal 11.5 - 14.5 % AO Workflow SS GFR/1.73 sq M.predicted among blacks MDRD (S/P/Bld) [Vol rate/Area] 77 ml/min/1.73sqm Invalid Interpretation Code AO Chemistry S Comment on above: Interpretive Data: GFR Population mean for , Non- Americans Ages 20-29 = 116 mL/min/1.73 sq.m. Ages 30-39 = 107 mL/min/1.73 sq.m. Ages 40-49 = 99 mL/min/1.73 sq.m. Ages 50-59 = 93 mL/min/1.73 sq.m. Ages 60-69 = 85 mL/min/1.73 sq.m. Ages 70+ = 75 mL/min/1.73 sq.m. Chronic Kidney Disease: Less than 60 mL/min/1.73 square meters End Stage Renal Disease: Less than 15 mL/min/1.73 square meters GFR/1.73 sq M.predicted among non-blacks MDRD (S/P/Bld) [Vol rate/Area] 63 ml/min/1.73sqm Invalid Interpretation Code AO Chemistry S Comment on above: Interpretive Data: GFR Population mean for , Non- Americans Ages 20-29 = 116 mL/min/1.73 sq.m. Ages 30-39 = 107 mL/min/1.73 sq.m. Ages 40-49 = 99 mL/min/1.73 sq.m. Ages 50-59 = 93 mL/min/1.73 sq.m. Ages 60-69 = 85 mL/min/1.73 sq.m. Ages 70+ = 75 mL/min/1.73 sq.m. Chronic Kidney Disease: Less than 60 mL/min/1.73 square meters End Stage Renal Disease: Less than 15 mL/min/1.73 square meters Glucose [Mass/Vol] 90 mg/dL Normal 80 - 115 mg/dL AO ADM SS Hematocrit (Bld) [Volume fraction] 38.3 % Normal 37.0 - 47.0 % AO Workflow SS Hemoglobin (Bld) [Mass/Vol] 13.0 G/dL Normal 12.0 - 16.0 G/dL AO Workflow SS Lymphocytes (Bld) [#/Vol] 1.5 103/mcL Normal 0.8 - 3.9 10^3/mcL AO Workflow SS Lymphocytes/100 WBC (Bld) 32.8 % Normal 10.0 - 50.0 % AO Workflow SS MCH (RBC) [Entitic mass] 33.9 pg High 27.0 - 31.2 pg AO Workflow SS MCHC 34.1 G/dL Normal 33.0 - 37.0 G/dL AO Workflow SS MCV (RBC) [Entitic vol] 99.6 fL High 80.0 - 94.0 fL AO Workflow SS Monocyte distribution width Auto (Bld) [Entitic vol] 15.65 1 Normal 0.00 - 20.00 AO Workflow SS Comment on above: Result Comment: For ED adult patients suspected of sepsis, MDW<=20.0 does not rule out sepsis or risk of sepsis Monocytes (Bld) [#/Vol] 0.7 103/mcL Normal 0.2 - 1.0 10^3/mcL AO Workflow SS Monocytes/100 WBC (Bld) 14.5 % High 1.7 - 13.0 % AO Workflow SS Neutrophils (Bld) [#/Vol] 2.3 103/mcL Low 2.9 - 6.2 10^3/mcL AO Workflow SS Neutrophils/100 WBC (Bld) 48.8 % Normal 37.0 - 80.0 % AO Workflow SS Platelet mean volume (Bld) [Entitic vol] 6.9 fL Low 7.4 - 10.4 fL AO Workflow SS Platelets (Bld) [#/Vol] 207 103/mcL Normal 130 - 400 10^3/mcL AO Workflow SS Potassium [Moles/Vol] 5.7 mmol/L High 3.5 - 5.1 mmol/L AO ADM SS RBC (Bld) [#/Vol] 3.84 106/mcL Low 4.20 - 5.4 0 10^6/mcL AO Workflow SS Sodium [Moles/Vol] 139 mmol/L Normal 136 - 145 mmol/L AO ADM SS Troponin I.cardiac DL <= 0.01 ng/mL [Mass/Vol] 17 ng/L Normal 0 - 51 ng/L AO ADM SS Comment on above: Interpretive Data: H igh Sensitive Troponin I Reference Ranges: Female: 0-51 ng/L Male: 0-76 ng/L Testing performed on Dimension EXL using a homogeneous sandwich chemiluminescent immunoassay based on Webtogs technology. Urea nitrogen [Mass/Vol] 10 mg/dL Normal 7 - 18 mg/dL AO ADM SS Urea nitrogen/Creatinine [Mass ratio] 11 ratio Normal 7 - 27 ratio AO ADM SS WBC (Bld) [#/Vol] 4.6 103/mcL Normal 4.6 - 10.8 10^3/mcL AO Workflow SS 36on 07-19-2024 36 Tell them to cancel my order and just use her promethazine 36 Name of caller: Cher Contact phone number: [phone] Relationship to Patient: [facility] Provider: Dr. Napier Practice: [facility] Neurology [place] Chief Complaint/Reason for Call: Cher states that their pharmacy received a script for ondansetron ODT (Zofran-ODT) 4 MG disintegrating tablet and the patient is allergic to it. Cher states that the patient already takes Phenergan, routinely. Please advise. Best time of day caller can be reached: Any Patient advised that office/PCP has 24-48 business hours to return their call: No [place] [address] Lm for Elgin to call the office back, please relay providers message. [place] [address] I sent a prescription for ondansetron to take for the headache with nausea. I sent in a five day Rx of prednisone to shut down the headache. Please re-schedule the MRI or make sure MRI does that. [place] [address] Name of caller: Elgin Contact phone number: [phone] Relationship to Patient: [facility] Provider: Karthikeyan Practice: Neurology [facility] Chief Complaint/Reason for Call: Elgin called back and is reporting that patient called her this morning complaining of the worst migraine that she has ever had. Elgin states that she has still been nauseous and having difficulty keeping food down (only eating crackers and broth for fear of vomiting) since starting the Qulipta. Has to cancel her MRI on 07/17/24 due to the nausea and inability to be still for it to be completed. Elgin states they will have to reschedule the MRI. She is requesting a call back to discuss what needs to be done in regards to the nausea and the medication - patient is still taking the Qulipta as the facility is still administering the medication until provider advises otherwise. Best time of day caller can be reached: Any Patient advised that office/PCP has 24-48 business hours to return their call: No [address] 07-17-2024 36 Name of caller: Elgin Contact phone number: [phone] Relationship to Patient: family member patient and daughter Provider: Dr. Napier Practice: [facility] Neurology Chief Complaint/Reason for Call: Elgin called in to advise Dr. Napier that her mother started the Qulipta on Wednesday, and by Wednesday at she started having nausea. Elgin advised that this just progressively got worse and today she cannot hold food down and is vomiting. Elgin stated that the headaches went away, and the eye closing improved, but she is concerned with the nausea and vomiting. Elgin would like to know if this is normal with this med, or is the dose too high, or does it need to be stopped? Please contact Elgin and advise. Best time of day caller can be reached: any Patient advised that office/PCP has 24-48 business hours to return their call: Yes [address] 07-13-2024 36 patient has been notified of providers message [place] [address] She should avoid taking the hydrocodone and the tizanidine for about 8 hours after she takes the diazepam. [place] [address] She is asking if she should avoid taking the hydrocodone and Zanaflex before the diazepam. [address] 07-12-2024 36 Tell her that if she does not think that she needs the diazepam before the MRI she can choose not to take it. If she needs to take the diazepam then she should avoid taking the hydrocodone for at least 8 hours after she takes the diazepam. If there are further questions, then please have her schedule an appt with Leatha or eZnaida to review those questions. [address] 07-11-2024 36 Pt [facility]. Pended Rx. [place] [id number] Name of caller: Steve Contact phone number: [phone] Relationship to Patient: patient Provider: Dr. Napier Practice: [facility] NEURO Chief Complaint/Reason for Call: Pt states she needs a prior authorization to start for Deutetrabenazine ER (Austedo XR) 30 MG tablet sustained-release 24 hour. Pt states she was told that her insurance has denied this. Pt states to submit the information for the prior authorization to the expedited fax# [phone] [employer]. . Pt states she would like to be notified once the prior authorization has been submitted. Please review. Best time of day caller can be reached: any Patient advised that office/PCP has 24-48 business hours to return their call: Yes 36on 07-10-2024 36 Thank you. Rx signed [facility] 36 Name of caller: Steve Contact phone number: [phone] Relationship to Patient: patient Provider: Dr. Napier Practice: Neurology [place] Chief Complaint/Reason for Call: Pt states she would like to discuss taking her medications on top off the valium she has to take for her MRI. Please advise. Best time of day caller can be reached: any Patient advised that office/PCP has 24-48 business hours to return their call: N/A 36on 07-07-[address] Napier - Pt insurance has denied PA for Austedo Xr. They will not approve coverage for Austedo unless patient has tried and failed Ingrezza. If you feel Ingrezza would be an appropriate substitute, Rx is attached for approval. Due to patient complex medication history, would recommend initiating at 40mg daily and staying at that dose until follow-up appt. 36on 06-30-2024 36 Cher has been notified of providers message 36 Lm for Cher to call the office back, please transfer her back to the office when she calls back. 36on 06-29-2024 36 Lm for Cher to call the office back, please relay providers message. 36 The "daily" dosing can be evening instead of morning 36 Cher from patient facility is asking if the Austedo can be taken in the evening instead of the morning. Please call her back [phone] Cher Office Visiton 06-29-2024 Follow-up visit [id number] Steve Fagan 1955 F Date Provider Department Center 06/29/2024 [id number] NAPIER [facility] None Family History Problem Relation Age of Onset Alcohol abuse Mother Heart disease Sister Bipolar disorder Mother Stroke Sister Cancer Brother Emphysema Father Family Status - Relation Status Age at Mother Sister Alive Brother Father Sister Alive Sister Alive Level of Service:29610 MO OFFICE/OUTPATIENT NEW HIGH MDM 60 MINUTES Reason for Visit and Comments: New Patient [542] Tremors [913312] Difficulty Walking [[id number]] Extremity Weakness [328088] Normal [facility] Progress Noteon 06-29-2024 Progress Note [facility] [address] [place] [address] [facility] [address] Dept: [phone] Dept Loc: [phone] Robby Napier MD Thank you for your kind request for a neurological consultation on this patient. CHIEF COMPLAINT: Chief Complaint Patient presents with New Patient Tremors Difficulty Walking Extremity Weakness HISTORY OF PRESENT ILLNESS: The patient is a 69 y.o. person who presents with movements that she is having movements of her arms and legs that she has trouble controlling. She reports that I have seen her in my prior practice, but I do not have my old notes. She and family report that she is having swinging type movements of the limbs, clomping of the limbs when walking," and tendency to have trouble keeping her eyes from opening. She reports that there was a concern that she had side effects from Latuda, so that was stopped, but her movements and walking got much worse after stopping the Latuda. She reports that she saw Dr. Judd since the movements started. No dysphagia. She reports taht she is having intermittent dyspnea. She reports that she has been using a walker for a long time well before the movements started. She reports that she is having headaches. She reports that she has to wear sunglasses all the time because of light trigger her headaches. She feeels it in the vertex, occiput, or down the neck. She will have 12-16 headaches per month. Dull ache. Is the DURAN longer than four hours? Yes (Migraine) Photophobia? Yes (Migraine) Phonophobia? Yes (Migraine) Nausea/Vomiting? Yes (Migraine) Exacerbated by Movement? No Dizziness with the headaches. (Hemicrania Continua) Autonomic Features (at least 1 of below)? (1) conjunctival injection? No (2) lacrimation? No (3) nasal congestion? No (4) rhinorrhea? No (5) ptosis? No (6) eyelid edema? No (New Daily Persistent DURAN) Clear Onset of DURAN Syndrome? No Persistent for >3 months? No Distinct starting point? No No prior DURAN history? Yes (Tension-Type DURAN) Mild-Moderate, Featureless? No >10 attacks per month? 30 min-7days? Bilateral? Pressing/tightening? Is the DURAN less than four hours? No Autonomic Features? No Cluster Headache (1 or more)? No 15 min to 180 min? No Ipsilateral conjunctival injection? No Ipsilateral Lacrimation? No Ipsilateral nasal congestion? No Ipsilateral Rhinorrhea? No Ipsilateral forehead and facial sweating? No Ipsilateral Miosis? No Ipsilateral Ptosis? No eyelid edema? No Paroxysmal Hemicrania (1 or more ipsilateral)? No (1) 2 min-30 min? No (2) conjunctival injection? No (3) lacrimation? No (4) nasal congestion? No (5) rhinorrhea? No (6) eyelid edema? No Short-lasting Unilateral Neuralgiform DURAN with Conjunctival Injection and Tearing? (1) 1 sec-600 s? No (2) conjunctival injection? No (3) lacrimation? No (4) nasal congestion? No (5) rhinorrhea? No (6) eyelid edema? No Hypnic DURAN? Only during sleep and causing awakening? No > 10 days per month? No > 3 months? No Age over 50? No Primary Cough DURAN? > 2 attacks? No Precipitated by coughing or other Valsalva maneuver? No 1 sec-2 hours? No Secondary cause ruled out? No Primary Exercise DURAN? > 2 attacks? No Precipitated by strenuous exercise? No Secondary cause ruled out? No Secondary causes of DURAN? Systemic Symptoms (mets, GCA, infection)? Fever? Sweats/Chills? Weight Loss? Secondary Diseases? HIV? Cancer? Chronic Infection? Chronic Immunosuppression? Neurological Symtoms and Signs (mass/structural lesion, stroke, hydrocephalus) Confusion? Focal neurological signs/symptoms? Diplopia? Transient visual obscurations? Pulsatile tinnitus? Onset: (RCVS, stroke, SAH, CVST, dissection, pituitary apoplexy, intracranial hypertension) Thunderclap? Older Age (mass, GCA) New onset after age 50? Progressive after age 50? Positional (CSF leak, mass, CVST, Sinusitis) Orthostatic? Recumbent? Worsens with change in position? Prior history (mass, infection)? / (CVST, eclampsia, RCVS, pituitary lesion, stroke)? Precipitated by valsalva (mass, Chiari)? Cough? Sneeze? Bending? Straining? She reports that she has had to have Botox for migraines. She has been on imipramine, pregabalin, topiramate, duloxetine, sertraline, and Botox for migraines and had bad reaction to all of those medications Past Medical History: has a past medical history of Anxiety, Asthma, Bipolar 1 disorder (HCC), Bipolar depression (CMS/HCC) ([facility]), Cerebral palsy ([facility]), Cervical spine degeneration, COPD (chronic obstructive pulmonary disease) ([facility]), Dysphasia, Gait abnormality, GERD (gastroesophageal reflux disease), Hypercholesteremia, Hyperreflexia, Hypoglycemia, Hypothyroidism, IBS (irritable bowel syndrome), Myalgia, Myositis, Rhinitis, and Urinary incontinence. She reports chelsey (more content not included)... Normal [facility] B1WBon 05-02-2024 Vitamin B1 l Bld 184.0 nmol/L Normal 66.5-200.0 [facility] ([place]) Comment on above: Result Comment: This test was developed and its performance characteristics determined by [employer]. It has not been cleared or approved by the Food and Drug Administration. Performed At: [facility] [address] [place], [place] [id number] Miller Benitez MD Ph:[phone] Performed By: #### C RP, ADMADDISON, ANEU, CAION, CK, [id number], CBC, TSH #### [facility] [address] [place], [place] [address] #### FOL, B12, MCRSO #### [address] [address] .Auto Diffon 04-26-2024 Basophil, Absolute 0.0 10 3/mcL Normal 0.0-0.2 [facility] ([place]) Comment on above: Performed By: #### C RP, ADIFF, ANEU, CAION, CK, [id number], CBC, TSH #### [address] [address] #### FOL, B12, MCRSO #### [address] [address] Basophils/100 WBC (Bld) 0.2 % Normal 0.0-2.5 [facility] ([place]) Comment on above: Performed By: #### C RP, ADIFF, ANEU, CAION, CK, [id number], CBC, TSH #### [place] [address] #### FOL, B12, MCRSO #### [address] [address] Eosinophil, Absolute 0.0 10 3/mcL Normal 0.0-0.4 [facility] ([place]) Comment on above: Performed By: #### C RP, ADIFF, ANEU, CAION, CK, [id number], CBC, TSH #### [place] [address] #### FOL, B12, MCRSO #### [address] [address] Eosinophils/100 WBC (Bld) 0.2 % Normal 0.0-7.0 [facility] ([place]) Comment on above: Performed By: #### C RP, ADIFF, ANEU, CAION, CK, 229483, CBC, TSH #### [address] [address] #### FOL, B12, MCRSO #### [address] [address] Lymphocyte, Absolute 1.2 10 3/mcL Normal 0.8-3.9 [facility] ([place]) Comment on above: Performed By: #### C RP, ADIFF, ANEU, CAION, CK, 096397, CBC, TSH #### [place] [address] #### FOL, B12, MCRSO #### [address] [address] Lymphocytes/100 WBC (Bld) 9.9 % Low 10.0-50.0 [facility] ([place] Comment on above: Performed By: #### C RP, ADIFF, ANEU, CAION, CK, 590224, CBC, TSH #### [place] [address] #### FOL, B12, MCRSO #### [address] [address] Monocyte, Absolute 1.2 10 3/mcL High 0.2-1.0 [facility] ([place] Comment on above: Performed By: #### C RP, ADIFF, ANEU, CAION, CK, 165205, CBC, TSH #### [place] [address] #### FOL, B12, MCRSO #### [address] [address] Monocytes/100 WBC (Bld) 9.9 % Normal 1.7-13.0 [facility] ([place] Comment on above: Performed By: #### C RP, ADIFF, ANEU, CAION, CK, 437263, CBC, TSH #### [address] [address] #### FOL, B12, MCRSO #### [address] [address] Neutrophils/100 WBC (Bld) 79.8 % Normal 37.0-80.0 [facility] ([place] Comment on above: Performed By: #### C RP, ADIFF, ANEU, CAION, CK, 574094, CBC, TSH #### [place] [address] #### FOL, B12, MCRSO #### [address] [address] .NEUABSon 04-26-2024 Neutrophil, Absolute 10.0 10 3/mcL High 2.9-6.2 [facility] ([place]) Comment on above: Performed By: #### C RP, ADIFF, ANEU, CAION, CK, 249975, CBC, TSH #### [address] [address] #### FOL, B12, MCRSO #### [address] [address] B12on 04-26-2024 Cobalamin (Vitamin B12) [Mass/Vol] 774 pg/mL Normal 211-911 [facility] ([place]) Comment on above: Performed By: #### C RP, ADIFF, ANEU, CAION, CK, 350671, CBC, TSH #### [address] [address] #### FOL, B12, MCRSO #### [place] [address] CAIONon 04-26-2024 Calcium Ionized 1.18 mmol/L Normal 1.12-1.32 [facility] ([place]) Comment on above: Performed By: #### C RP, ADIFF, ANEU, CAION, CK, 638568, CBC, TSH #### [address] [address] #### FOL, B12, MCRSO #### [place] [address] CBCon 04-26-2024 Erythrocyte distribution width (RBC) [Ratio] 12.0 % Normal 11.5-14.5 [facility] ([place] Comment on above: Performed By: #### C RP, ADIFF, ANEU, CAION, CK, 421713, CBC, TSH #### [address] [address] #### FOL, B12, MCRSO #### [place] [address] Hematocrit (Bld) [Volume fraction] 41.7 % Normal 37.0-47.0 [facility] ([place] Comment on above: Performed By: #### C RP, ADIFF, ANEU, CAION, CK, 354106, CBC, TSH #### [address] [address] #### FOL, B12, MCRSO #### [place] [address] Hgb 14.3 G/dL Normal 12.0-16.0 [facility] ([place] Comment on above: Performed By: #### C RP, ADIFF, ANEU, CAION, CK, 538713, CBC, TSH #### [place] [address] #### FOL, B12, MCRSO #### [place] [address] MCH (RBC) [Entitic mass] 33.3 pg High 27.0-31.2 [facility] ([place]) Comment on above: Performed By: #### C RP, ADIFF, ANEU, CAION, CK, 756018, CBC, TSH #### [place] [address] #### FOL, B12, MCRSO #### [place] [address] MCHC 34.3 G/dL Normal 33.0-37.0 [facility] ([place]) Comment on above: Performed By: #### C RP, ADIFF, ANEU, CAION, CK, 813236, CBC, TSH #### [place] [address] #### FOL, B12, MCRSO #### [place] [id number] MCV (RBC) [Entitic vol] 97.2 fL High 80.0-94.0 [facility] ([place]) Comment on above: Performed By: #### C RP, ADIFF, ANEU, CAION, CK, 558442, CBC, TSH #### [place] [address] #### FOL, B12, MCRSO #### [place] [address] Platelet 304 10 3/mcL Normal 130-400 Count includes the [facility] ([place]) Comment on above: Performed By: #### C RP, ADIFF, ANEU, CAION, CK, 924091, CBC, TSH #### [place] [address] #### FOL, B12, MCRSO #### [place] [address] Platelet mean volume (Bld) [Entitic vol] 6.3 fL Low 7.4-10.4 Count includes the [facility] ([place]) Comment on above: Performed By: #### C RP, ADIFF, ANEU, CAION, CK, 368122, CBC, TSH #### [place] [address] #### FOL, B12, MCRSO #### [place] [address] RBC 4.29 10 6/mcL Normal 4.20-5.40 [facility] ([place]) Comment on above: Performed By: #### C RP, ADIFF, ANEU, CAION, CK, 590256, CBC, TSH #### [place] [address] #### FOL, B12, MCRSO #### [place] [address] WBC 12.5 10 3/mcL High 4.6-10.8 [facility] ([place]) Comment on above: Performed By: #### C RP, ADIFF, ANEU, CAION, CK, 806264, CBC, TSH #### [place] [address] #### FOL, B12, MCRSO #### [place] [address] CKon 04-26-2024 CK [Catalytic activity/Vol] 31 U/L Normal 26-192 [facility] ([place]) Comment on above: Performed By: #### C RP, ADIFF, ANEU, CAION, CK, 011691, CBC, TSH #### [place] [address] #### FOL, B12, MCRSO #### [place] [address] CRPon 04-26-2024 C-Reactive Protein 0.4 mg/dL High 0.0-0.3 [facility] ([place]) Comment on above: Performed By: #### C RP, SARAI, MICHAELA, GUILLERMINAON, CK, 884066, CBC, TSH #### [place] [id number] [place], [place] [address] #### FOL, B12, MCRSO #### [address] [address] FOLon 04-26-2024 Folate 32.17 ng/mL High 5.38-24.00 [facility] ([place]) Comment on above: Performed By: #### C RP, SARAI, MICHAELA, CAION, CK, 418094, CBC, TSH #### [place] [id number] [place], [place] [address] #### FOL, B12, MCRSO #### [address] [address] LABORATORYOrdered By: SYSTEM SYSTEM on 04-26-2024 Basophil, Absolute 0.0 103/mcL Normal 0.0 - 0.2 10^3/mcL AO Workflow SS Basophils/100 WBC (Bld) 0.2 % Normal 0.0 - 2.5 % AO Workflow SS CK [Catalytic activity/Vol] 31 U/L Normal 26 - 192 U/L AO ADM SS Cobalamin (Vitamin B12) [Mass/Vol] 774 pg/mL Normal 211 - 911 pg/mL ADM SS CRP [Mass/Vol] 0.4 mg/dL High 0.0 - 0.3 mg/dL AO ADM SS Eosinophil, Absolute 0.0 103/mcL Normal 0.0 - 0 .4 10^3/mcL AO Workflow SS Eosinophils/100 WBC (Bld) 0.2 % Normal 0.0 - 7.0 % AO Workflow SS Erythrocyte distribution width (RBC) [Ratio] 12.0 % Normal 11.5 - 14.5 % AO Workflow SS Folate [Mass/Vol] 32.17 ng/mL High 5.38 - 24. 00 ng/mL ADM SS Hematocrit (Bld) [Volume fraction] 41.7 % Normal 37.0 - 47.0 % AO Workflow SS Hemoglobin (Bld) [Mass/Vol] 14.3 G/dL Normal 12.0 - 16.0 G/dL AO Workflow SS Lymphocyte, Absolute 1.2 103/mcL Normal 0.8 - 3 .9 10^3/mcL AO Workflow SS Lymphocytes/100 WBC (Bld) 9.9 % Low 10.0 - 50.0 % AO Workflow SS MCH (RBC) [Entitic mass] 33.3 pg High 27.0 - 31.2 pg AO Workflow SS MCHC 34.3 G/dL Normal 33.0 - 37.0 G/dL AO Workflow SS MCV (RBC) [Entitic vol] 97.2 fL High 80.0 - 94.0 fL AO Workflow SS Monocyte, Absolute 1.2 103/mcL High 0.2 - 1.0 10^3/mcL AO Workflow SS Monocytes/100 WBC (Bld) 9.9 % Normal 1.7 - 13.0 % AO Workflow SS Neutrophil, Absolute 10.0 103/mcL High 2.9 - 6 .2 10^3/mcL AO Workflow SS Neutrophils/100 WBC (Bld) 79.8 % Normal 37.0 - 80.0 % AO Workflow SS Platelet mean volume (Bld) [Entitic vol] 6.3 fL Low 7.4 - 10.4 fL AO Workflow SS Platelets (Bld) [#/Vol] 304 103/mcL Normal 130 - 400 10^3/mcL AO Workflow SS RBC (Bld) [#/Vol] 4.29 106/mcL Normal 4.20 - 5.4 0 10^6/mcL AO Workflow SS TPO Ab IA Qn 48 unit/mL Normal 0 - 60 unit/mL AH ADM SS Comment on above: Interpretive Data: * *Note - New Reference Range in effect 20 TSH Qn 5.63 m[IU]/L High 0.36 - 3.74 mcIU/mL AO ADM SS WBC (Bld) [#/Vol] 12.5 103/mcL High 4.6 - 10.8 10^3/mcL AO Workflow SS LABORATORYOrdered By: Heidi Fraser on 04-26-2024 Calcium Ionized 1.18 mmol/L Normal 1.12 - 1.32 mmol/L AO Rapid Comm SS TSHon 04-26-2024 TSH Qn 5.63 m[IU]/L High 0.36-3.74 Count includes the [facility] ([place]) Comment on above: Performed By: #### C RP, ADIFF, ANEU, CAION, CK, 365013, CBC, TSH #### [facility] [address] [place], [place] [address] #### FOL, B12, MCRSO #### [facility] [address] [place] [address] aTPOon 04-26-2024 anti-Thyroid Peroxidase 48 units/ml Normal 0-60 [facility] ([place]) Comment on above: Result Comment: No te - New Reference Range in effect 20 Performed By: #### C RP, ADIFF, ANEU, CAION, CK, 525984, CBC, TSH #### [facility] [address] [place], [place] [address] #### FOL, B12, MCRSO #### [facility] [address] [place] [address] XR FLUORO GUIDANCE FOR THERA PY INJECTIONon 09-20-2023 XR FLUORO GUIDANCE FOR THERAPY INJECTION ORIGINAL Images acquired, not reported on this accession number. Normal [facility] ([place]) MRI BRAIN W/ + W/O CONTRASTo n 06-03-2023 MRI BRAIN W/ + W/O CONTRAST ORIGINAL HISTORY: Tremors, small vessel ischemic disease COMPARISON: 07 July 2015 TECHNIQUE: 1. Sagittal and axial T1-weighted images. 2. Axial and sagittal FLAIR images. 3. Axial T2-weighted and T2*-weighted images. 4. Axial diffusion-weighted images with ADC map. 5. Axial, sagittal and coronal T1-weighted images following uncomplicated administration of intravenous gadolinium contrast. FINDINGS: The study is degraded by motion. The ventricles and sulci are mildly enlarged. There are no abnormal intra or extra-axial fluid collections. There are remote lacunar infarcts in the right frontal and parietal white matter. There are mild punctate and nodular T2 hyperintensities in the cerebral white matter; wilkins-white matter differentiation is maintained. There is no abnormal restriction of diffusion. There is no abnormal enhancement of the brain or its coverings. IMPRESSION: Limited by motion. Small vessel ischemic disease, more prominent than expected in a patient of this age, and mild volume loss. Findings are similar to the comparison. Interpreted by: Robby Kumar MD Preliminary Report By: Robby Kumar MD Electronically signed By Robby Kumar MD Dictated Date: 06/03/2023 10:43:38 AM Prelim Date: 06/03/2023 11:10:22 AM Sign Date: 06/03/2023 11:10:22 AM Ordering Provider: MARCIO Gaona [facility] ([place]) MRI SPINE THORACIC W/O CONTR Jannet 05-20-2023 MRI SPINE THORACIC W/O CONTRAST ORIGINAL EXAMINATION: MRI OF THE THORACIC SPINE WITHOUT CONTRAST 05/17/2023 1:24 pm TECHNIQUE: Multiplanar multisequence MRI of the thoracic spine was performed without the administration of intravenous contrast. COMPARISON: 04/09/2023, earlier HISTORY: ORDERING SYSTEM PROVIDED HISTORY: Reason for Exam: MUSCLE WEAKNESS Generalized body weakness, difficulty ambulating, shakiness FINDINGS: BONES/ALIGNMENT: On sagittal counting spine images there are 7 cervical, 12 thoracic, 5 lumbar type vertebral bodies. Mildly exaggerated thoracic kyphosis. Chronic compression deformities of T6, T10, and T11, to a much lesser extent L1 and T4. Minimal retropulsion of T10 vertebral augmentation T10. No abnormal marrow edema. Fatty marrow changes of T10 and T11 and superior endplates of T4, T7, and inferior endplate of L1. SPINAL CORD: Faint cord signal at T10-11 ascends to about the T9 level, best seen on sagittal STIR. SOFT TISSUES: No paraspinal mass identified. 4 x 10 x 11 mm (AP x TR x CC) right epidural perifacet cyst. Vacuum disc phenomenon is most prominent from T9 through L1. Simple right upper pole renal cyst. Large hiatal hernia. Patulous upper esophagus with right tracheal deviation similar to prior CT. Tortuous aorta. DEGENERATIVE CHANGES: Multilevel bulges, disc osteophyte and ligamentum flavum hypertrophy most prominent at T10-11, and facet arthropathy. Mild to moderate T10-11 spinal canal stenosis. Mild right central/subarticular stenosis at T9-10. Slight right ventral thecal contouring at T7-8. Severe bilateral T10-11 foraminal stenosis. Degenerative shoulders on localizer images. IMPRESSION: Multifocal chronic compression deformities, augmented T10. Mild to moderate T10-11 spinal canal stenosis. T2 hyperintense cord signal at T10-11 indicates myelomalacia. Severe bilateral T10-11 foraminal stenosis. Interpreted by: Tripp Ash DO Preliminary Report By: Tripp Ash DO Electronically signed By Tripp Ash DO Dictated Date: 05/20/2023 2:01:16 PM Prelim Date: 05/20/2023 2:33:22 PM Sign Date: 05/20/2023 2:33:22 PM Ordering Provider: DANII Gaona [facility] ([place]) [place] SPINE LUMBAR W/O CONTRNEELA Bob 05-19-2023 MRI SPINE LUMBAR W/O CONTRAST ORIGINAL HISTORY: Muscle weakness COMPARISON: No TECHNIQUE: 1. Sagittal T1-weighted images. 2. Sagittal T2-weighted images with and without fat saturation. 3. Axial T1-weighted images. 4. Axial T2-weighted images. FINDINGS: The study is limited by technique. There are 5 lumbar type vertebral bodies for the purpose of this dictation. There is right convex scoliosis, not further characterized here. There is mild grade 1 retrolisthesis at all lumbar levels. Vertebral body heights are intact. There is asymmetric disc space narrowing throughout. The tip of the conus is at the L1-L2 level. There is no abnormal signal within the visualized spinal cord. Specific findings by level: L1-L2: There is moderate spondylosis. There is mild facet hypertrophy, greater on the left. L2-L3: There is mild to moderate spondylosis. There is mild facet hypertrophy, greater on the left. L3-L4: There is mild to moderate spondylosis. There is mild facet hypertrophy. There is mild left ligamentum flavum hypertrophy. There is mild stenosis. L4-L5: There is moderate spondylosis. There is mild to moderate left and mild right facet hypertrophy. There is mild ligamentum flavum hypertrophy. There is mild stenosis. There is moderate to severe right and at least moderate left neural foraminal narrowing. L5-S1: There is mild spondylosis and there is a superimposed mild left parasagittal extrusion. This impinges but does not definitely displace the descending left S1 nerve root. There is a superimposed right subarticular/neural foraminal disc osteophyte complex. This impinges and may mildly displace the descending right S1 nerve root. There is mild moderate right and mild left facet hypertrophy. There is mild to moderate right neural foraminal narrowing. IMPRESSION: Mild stenosis at L3-L4 and L4-L5 secondary to disc, facet and ligamentum flavum pathology along with grade 1 retrolisthesis. There is significant neural foraminal narrowing at L4-L5. Extrusions at L5-S1, likely mildly displacing the right S1 nerve root. Milder degenerative changes at the remaining levels along with right convex scoliosis, L without significant stenosis. Interpreted by: Robby Kumar MD Preliminary Report By: Robby Kumar MD Electronically signed By Robby Kumar MD Dictated Date: 05/19/2023 3:00:24 PM Prelim Date: 05/19/2023 3:06:19 PM Sign Date: 05/19/2023 3:06:19 PM Ordering Provider: DANII Gaoan [facility] ([place] SPINE CERVICAL W/O CONTR Jannet 05-18-2023 MRI SPINE CERVICAL W/O CONTRAST ORIGINAL HISTORY: Muscle weakness COMPARISON: 31 July 2019 TECHNIQUE: 1. Sagittal T1-weighted images. 2. Sagittal T2-weighted and T2*-weighted images. 3. Axial T2-weighted and T2*-weighted images. FINDINGS: The study is limited by habitus and motion. Lateral views in particular are limited and are nondiagnostic in places. There is grade 1 anterolisthesis at C5-C6 and grade 1 retrolisthesis at C6-C7. The individual vertebral bodies are intact. There is disc desiccation and disc space narrowing, most prominently at C5-C6 and C6-C7. There is no abnormal signal within the cervical spinal cord. The visualized portions of the cord and base of the brain are unremarkable in appearance. Specific findings by level: C3-C4: There is mild right and moderate left uncovertebral hypertrophy. There is a kwmu-tz-ulqihibn posterior disc bulge. There is mild ligamentum flavum hypertrophy. There is mild stenosis. There is left neural foraminal narrowing. C4-C5: There is mild right and qfnq-he-slaeguyd left uncovertebral hypertrophy. There is a ypdr-al-ujwdxubf posterior disc bulge. There is mild ligamentum flavum hypertrophy. There is mild stenosis. There is left neural foraminal narrowing. C5-C6: There is a mild posterior disc bulge/pseudo bulge. There is mild uncovertebral hypertrophy. There is mild stenosis. C6-C7: There is mild right uncovertebral hypertrophy. There is a moderate left subarticular extrusion. There is mild stenosis. IMPRESSION: Limited examination. Mild stenosis at C3-C4 through C6-C7 secondary to disc, uncovertebral and ligamentum flavum pathology, along with grade 1 anterolisthesis at C5-C6 and grade 1 retrolisthesis at C6-C7. Degenerative changes have progressed since the comparison, particularly at C5-C6, where there is new stenosis. Interpreted by: Robby Kumar MD Preliminary Report By: Robby Kumar MD Electronically signed By Robby Kumar MD Dictated Date: 05/18/2023 12:23:54 PM Prelim Date: 05/18/2023 12:29:13 PM Sign Date: 05/18/2023 12:29:13 PM Ordering Provider: DANII PIERRE [facility] ([place]) LABORATORYOrdered By: SYSTEM SYSTEM on 05-03-2023 CK [Catalytic activity/Vol] 64 U/L Invalid Interpretation Code 26 - 192 U/L AO ADM SS [facility] Carotid Artery Dupl ex Ultrasounon 10-07-2022 VASC LAB Carotid Artery Duplex Ultrasoun [facility] [address] [place] [address], [address] [address] and Vascular Lab Report Carotid Artery Duplex Ultrasound Patient Name: STEVE GRACIA Reading Physician: [id number] Jeevan German MD Study Date: 10/07/2022 Referring Physician: DILCIA BOBBY MRN/PID: [id number] PCP: Accession/Order#: [id number] CC Report to: Date of : 1955 Technologist: Carmen Khan RVT Gender: F Technologist 2: Admission Status: Outpatient Location Performed: [facility] Diagnosis/ICD: I65.22-Occlusion and stenosis of left carotid artery Procedure/CPT: 62790 Cerebrovascular Carotid Duplex scan complete-[id number] CONCLUSIONS: Right Carotid: Findings are consistent with less than 50% stenosis of the right proximal ICA. Right external carotid artery appears patent with no evidence of stenosis. The right vertebral artery is patent with antegrade flow. No evidence of hemodynamically significant stenosis in the right subclavian. Left Carotid: Findings are consistent with less than 50% stenosis of the left proximal ICA. Left external carotid artery appears patent with no evidence of stenosis. The left vertebral artery is patent with antegrade flow. No evidence of hemodynamically significant stenosis in the left subclavian. Imaging AND Doppler Findings: Right Plaque Morph: The right carotid bulb demonstrates heterogenous and complex plaque. Left Plaque Morph: The proximal left internal carotid artery demonstrates heterogenous plaque. The left carotid bulb demonstrates heterogenous and calcified plaque. Right Left PSV EDV PSV EDV 95 cm/s CCA P 79 cm/s 76 cm/s CCA D 72 cm/s 124 cm/s 17 cm/s ICA P 79 cm/s 24 cm/s 63 cm/s 17 cm/s ICA M 50 cm/s 16 cm/s 56 cm/s 16 cm/s ICA D 57 cm/s 16 cm/s 156 cm/s ECA 77 cm/s 40 cm/s 14 cm/s Vertebral 59 cm/s 14 cm/s 113 cm/s Subclavian 168 cm/s Right Left ICA/CCA Ratio 1.6 1.1 [id number] Jeevan German MD Final Normal [facility] VAS LAB Carotid Artery Dupl ex Ultrasoundon 10-07-2022 US.doppler Carotid arteries Please click on the link to view the study images Normal PA-Prfaethxb-Sb oadview DO Work Phone: Office Visit (Neuro-General) on 09-30-2022 Follow-up visit Provider Impressions Ms. Fagan is a 67-year-old woman presenting to the neurology clinic today for initial evaluation of multiple different episodes of neurologic symptoms which have been labeled as TIA. Episodes are of unclear etiology. Higher suspicion for psychiatric cause then vascular cause which was discussed with the patient and her friend at the visit today. However her CTA of the head and neck did show fairly significant left-sided carotid stenosis reported as 70 to 80% which was then not confirmed on carotid duplex. This imaging is over 6 months ago and I am recommending repeating her carotid duplex. Depending on the results of that we will decide if she needs her CTA head and neck repeated. She has not had any further episodes since June and her psychiatric medications have recently been adjusted. I recommend that she continue to work with her psychiatrist to get her mood stabilized. She is reporting some tremors which were not seen during the visit today. She lives in [place] and is interested in seeing Dr. Modi for follow-up. She should be seen in 6 months. In the meantime she will continue on aspirin and Plavix. If no further episodes during this time then we will plan to adjust her to monotherapy. Dilcia Bobby, DO Patient Discussion/Summary I feel that most of your episodes are secondary to the underlying psychiatric disease affecting your brain and causing these episodes when you get upset or stressed. Continue to work with psychiatry. You could see Dr. Modi in [place] (neurology). He is a movement disorder specialist and could also take care of the "TIA" episodes. Diagnoses/Problems Assessed Carotid artery disease (447.9) (I77.9) Carotid stenosis, symptomatic w/o infarct, left (433.10) (I65.22) Orders Carotid artery disease, Carotid stenosis, symptomatic w/o infarct, left VASC LAB Carotid Artery Duplex Ultrasound; Status:Active; Requested for:[id number]; Laterality : Bilateral Chief Complaint NPV for TIA History of Present Illness Ms. Fagan is a 67 year old woman presenting to the neurology clinic today for initial evaluation ?TIAs. April 23 and an CORE MICROARCHITECT told her that she was having TIAs in her legs. She is having episodes of face drooping. She has had 4 episodes - 2 times she lost consciousness. First one - she could hear people however she was not responding. She was standing and put her in the wheelchair then she was on the floor. She does not remember getting in the wheelchair or being on the floor. Once she was in the floor she came to. March 24 after she had her right knee replacement. She sitting in the recliner and she passed out - she woke up 20 minutes later and her vision was off. December 22 - speech was slurred and she was having trouble speaking. went to bed and symptoms had resolved. April 15 - she passed out and her right leg felt funny. She had left facial drooping. She is on aspirin and Plavix. SHe has had episode since starting those medications. The most recent episode was in June. She has had adjustment of her psych Meds since that time. Review of Systems Constitutional: no unexplained weight loss. Eyes: no vision loss/change. ENMT: no dizziness/vertigo. Respiratory: no cough. Cardiovascular: no chest pain. Genitourinary: no incontinence. Musculoskeletal: stiffness and muscle weakness. Neurological: as noted in HPI. Psychiatric: as noted in HPI. All other systems have been reviewed and are negative for complaint. Active Problems Problems Abnormal weight loss (783.21) (R63.4) Chronic constipation (564.00) (K59.09) Continuous epigastric pain (789.06) (R10.13) Diverticulosis of colon (562.10) (K57.30) Gastroesophageal reflux disease with hiatal hernia (530.81,553.3) (K21.9,K44.9) Nausea with vomiting (787.01) (R11.2) Past Medical History Problems History of anemia (V12.3) (Z86.2) History of anxiety (V11.8) (Z86.59) History of asthma (V12.69) (Z87.09) History of bipolar disorder (V11.1) (Z86.59) History of cerebral palsy (V12.49) (Z86.69) Denied: History of complications due to general anesthesia History of COPD (V12.69) (Z87.09) History of depression (V11.8) (Z86.59) History of diverticulosis (V12.79) (Z87.19) History of fibromyalgia (V13.59) (Z87.39) History of gastroesophageal reflux (GERD) (V12.79) (Z87.19) History of hemorrhoids (V13.89) (Z87.19) History of hiatal hernia (V12.79) (Z87.19) History of hypertension (V12.59) (Z86.79) History of hypothyroidism (V12.29) (Z86.39) History of IBS (V12.79) (Z87.19) History of mitral valve prolapse (V12.59) (Z86.79) History of osteoarthritis (V13.4) (Z87.39) History of osteopenia (V13.59) (Z87.39) History of rheumatic fever (V12.09) (Z86.79) History of transient ischemic attack (V12.54) (Z86.73) Surgical History Problems History of Appendectomy 1984 History of Carpal tunnel surgery History of Cholecystectomy 1984 - OPEN History of Colonoscopy 1996- NORMAL AND 2008- OTHE (more content not included)... Normal [employer] Basophil percentageon 2021 Cholesterol [Mass/Vol] 169 mg/dL <200 [facility] Work Phone: Comment on above: <200 mg/dL Desirable 200-240 mg/dL Borderline >240 mg/dL High Risk Triglyceride [Mass/Vol] 64 mg/dL <199 [facility] Work Phone: Comment on above: The drugs N-Acetylcy steine and Metamizole may falsely depress this assay.Serum Triglycerides Reference Interval Normal <150 mg/dL Borderline high 150 - 199 mg/dL High 200 - 499 mg/dL Very High > or = 500 mg/dL WBC (Bld) [#/Vol] 5.4 10*3/uL 4.4-11.0 [facility] Work Phone: Blood erythrocytes count (nu mber/volume)on 08-05-2022 RBC (Bld) [#/Vol] 3.87 10*6/uL 4.2-5.4 [facility] Work Phone: Blood hemoglobin measurement (mass/volume)on 08-05-2022 Hemoglobin (Bld) [Mass/Vol] 12.9 g/dL 12.0-15.0 [facility] Work Phone: Blood platelet mean volumeon 08-05-2022 Platelet mean volume (Bld) [Entitic vol] 8.9 fL 6.2-12.0 [facility] Work Phone: Determination of erythrocyte mean corpuscular volume (MCV)on 08-05-2022 MCV (RBC) [Entitic vol] 103.9 fL 81-99 [facility] Work Phone: Hematocrit Auto (Bld) [Volum e fraction]on 08-05-2022 Hematocrit (Bld) [Volume fraction] 40.2 % 37-47 [facility] Work Phone: Laboratory - Chemistry and C hemistry - challengeon 08-05-2022 Free T4 [Mass/Vol] 1.65 ng/dL 0.76-1.46 [facility] Work Phone: Laboratory - Hematology and Cell countson 08-05-2022 Erythrocyte distribution width (RBC) [Entitic vol] 46.8 fL 35.1-43.9 [facility] Work Phone: Erythrocyte distribution width (RBC) [Ratio] 12.4 % 11.6-14.6 [facility] Work Phone: MCH (RBC) [Entitic mass] 33.3 pg 27.0-32.0 [facility] Work Phone: MCHC Auto (RBC) [Mass/Vol]on 08-05-2022 MCHC (RBC) [Mass/Vol] 32.1 g/dL 32-36 [facility] Work Phone: No Panel Informationon 08-05 Thyroid Stimulating Hormone (TSH) 1.79 uIU/mL 0.358-3.74 [facility] Work Phone: Platelets bldon 08-05-2022 Platelets (Bld) [#/Vol] 250 10*3/uL 150-450 [facility] Work Phone: Serum or plasma cholesterol in HDL measurement (mass/volume)on 08-05-2022 Cholesterol in HDL [Mass/Vol] 75 mg/dL >40 [facility] Work Phone: Comment on above: The drugs N-Acetylcy steine and Metamizole may falsely depress this assay. Reference Range HDL <40 mg/dL Low HDL Cholesterol HDL >or= 60 mg/dL High HDL Cholesterol Serum or plasma cholesterol in VLDL measurement (mass/volume)on 08-05-2022 Cholesterol in VLDL [Mass/Vol] 13 mg/dL 5-40 [facility] Work Phone: Serum or plasma low density lipoprotein (LDL) cholesterol measurement (mass/volume)on 08-05-2022 Cholesterol in LDL [Mass/Vol] 81 mg/dL 0-130 [facility] Work Phone: LABORATORYOrdered By: SYSTEM SYSTEM on 05-12-2022 Cobalamin (Vitamin B12) [Mass/Vol] 568 pg/mL Invalid Interpretation Code 211 - 911 pg/mL ADM SS Folate [Mass/Vol] 27.30 ng/mL Invalid Interpretation Code 5.38 - 24.00 ng/mL [facility] SS LABORATORYOrdered By: Austin Zhang on 05-12-2022 Free T4 [Mass/Vol] 1.84 ng/dL Invalid Interpretation Code 0.76 - 1.46 ng/dL AO ADM SS HbA1c (Bld) [Mass fraction] 5.1 % Invalid Interpretation Code 4.3 - 6.4 % AO ADM SS TSH Qn 0.80 m[IU]/L Invalid Interpretation Code 0.36 - 3.74 mcIU/mL AO ADM SS LABORATORYOrdered By: Bethany Aguilar on 05-12-2022 Hep C Ab Non-Reactive (05/12/22 10:31 AM) Invalid Interpretation Code Non-Reactive ADM SS Hep C Ab Int Nonreactive: Samples with a value < 0.80 are considered nonreactive (negative) for antibodies to HCV.A negative test result does not exclude the possibility of exposure to or infection with HCV. HCV antibodies may be undetectable in some stages of the infection and in some clinical conditions. Invalid Interpretation Code Chemistry S LABORATORYOrdered By: Milvia Hernández on 04-29-2022 Albumin BCP dye [Mass/Vol] 3.7 G/dL Invalid Interpretation Code 3.4 - 4.8 G/dL AO ADM SS Albumin/Globulin [Mass ratio] 1.6 {ratio} Invalid Interpretation Code 1.1 - 2.5 ratio AO ADM SS ALP [Catalytic activity/Vol] 107 U/L Invalid Interpretation Code 40 - 135 U/L AO ADM SS ALT With P-5'-P [Catalytic activity/Vol] 26 U/L Invalid Interpretation Code 14 - 59 U/L AO ADM SS AST With P-5'-P [Catalytic activity/Vol] 24 U/L Invalid Interpretation Code 10 - 40 U/L AO ADM SS Bilirubin [Mass/Vol] 0.6 mg/dL Invalid Interpretation Code 0.2 - 1.0 mg/dL AO ADM SS Calcium [Mass/Vol] 9.0 mg/dL Invalid Interpretation Code 8.4 - 10.2 mg/dL AO ADM SS Chloride [Moles/Vol] 105 mmol/L Invalid Interpretation Code 98 - 107 mmol/L AO ADM SS Cholesterol [Mass/Vol] 158 mg/dL Invalid Interpretation Code 0 - 200 mg/dL AO ADM SS Cholesterol in HDL [Mass/Vol] 86 mg/dL Invalid Interpretation Code 40 - 60 mg/dL AO ADM SS Cholesterol in LDL [Mass/Vol] 58 mg/dL Invalid Interpretation Code 0 - 130 mg/dL AO ADM SS CO2 [Moles/Vol] 31 mmol/L Invalid Interpretation Code 23 - 31 mmol/L AO ADM SS Creatinine [Mass/Vol] 1.08 mg/dL Invalid Interpretation Code 0.55 - 1.02 mg/dL AO ADM SS Electrolyte Balance 7.0 mEq/L Invalid Interpretation Code 4.0 - 15.0 mEq/L AO ADM SS Ferritin [Mass/Vol] 170.0 ng/mL Invalid Interpretation Code 8.0 - 252.0 ng/mL AO ADM SS Free T4 [Mass/Vol] 2.02 ng/dL Invalid Interpretation Code 0.76 - 1.46 ng/dL AO ADM SS Globulin 2.3 G/dL Invalid Interpretation Code AO ADM SS Glucose [Mass/Vol] 90 mg/dL Invalid Interpretation Code 80 - 115 mg/dL AO ADM SS Potassium [Moles/Vol] 4.0 mmol/L Invalid Interpretation Code 3.5 - 5.1 mmol/L AO ADM SS Protein [Mass/Vol] 6.0 G/dL Invalid Interpretation Code 6.4 - 8.2 G/dL AO ADM SS Sodium [Moles/Vol] 143 mmol/L Invalid Interpretation Code 136 - 145 mmol/L AO ADM SS Triglyceride [Mass/Vol] 68 mg/dL Invalid Interpretation Code 0 - 150 mg/dL AO ADM SS TSH Qn 0.85 m[IU]/L Invalid Interpretation Code 0.36 - 3.74 mcIU/mL AO ADM SS Urea nitrogen [Mass/Vol] 7 mg/dL Invalid Interpretation Code 7 - 18 mg/dL AO ADM SS Urea nitrogen/Creatinine [Mass ratio] 6 ratio Invalid Interpretation Code 7 - 27 ratio AO ADM SS Vit. D 25-Hydroxy 44.7 ng/mL Invalid Interpretation Code AO ADM SS LABORATORYOrdered By: Austin Zhang on 04-29-2022 Basophil, Absolute 0.0 103/mcL Invalid Interpretation Code 0.0 - 0.2 10^3/mcL AO Workflow SS Basophils/100 WBC (Bld) 0.7 % Invalid Interpretation Code 0.0 - 2.5 % AO Workflow SS Eosinophil, Absolute 0.2 103/mcL Invalid Interpretation Code 0.0 - 0.4 10^3/mcL AO Workflow SS Eosinophils/100 WBC (Bld) 3.5 % Invalid Interpretation Code 0.0 - 7.0 % AO Workflow SS Erythrocyte distribution width (RBC) [Ratio] 12.5 % Invalid Interpretation Code 11.5 - 14.5 % AO Workflow SS Hematocrit (Bld) [Volume fraction] 36.6 % Invalid Interpretation Code 37.0 - 47.0 % AO Workflow SS Hemoglobin (Bld) [Mass/Vol] 12.5 G/dL Invalid Interpretation Code 12.0 - 16.0 G/dL AO Workflow SS Lymphocyte, Absolute 1.4 103/mcL Invalid Interpretation Code 0.8 - 3.9 10^3/mcL AO Workflow SS Lymphocytes/100 WBC (Bld) 25.2 % Invalid Interpretation Code 10.0 - 50.0 % AO Workflow SS MCH (RBC) [Entitic mass] 33.3 pg Invalid Interpretation Code 27.0 - 31.2 pg AO Workflow SS MCHC 34.3 G/dL Invalid Interpretation Code 33.0 - 37.0 G/dL AO Workflow SS MCV (RBC) [Entitic vol] 97.1 fL Invalid Interpretation Code 80.0 - 94.0 fL AO Workflow SS Monocyte, Absolute 0.7 103/mcL Invalid Interpretation Code 0.2 - 1.0 10^3/mcL AO Workflow SS Monocytes/100 WBC (Bld) 12.9 % Invalid Interpretation Code 1.7 - 13.0 % AO Workflow SS Neutrophil, Absolute 3.2 103/mcL Invalid Interpretation Code 2.9 - 6.2 10^3/mcL AO Workflow SS Neutrophils/100 WBC (Bld) 57.7 % Invalid Interpretation Code 37.0 - 80.0 % AO Workflow SS Platelet mean volume (Bld) [Entitic vol] 7.1 fL Invalid Interpretation Code 7.4 - 10.4 fL AO Workflow SS Platelets (Bld) [#/Vol] 246 103/mcL Invalid Interpretation Code 130 - 400 10^3/mcL AO Workflow SS RBC (Bld) [#/Vol] 3.77 106/mcL Invalid Interpretation Code 4.20 - 5.40 10^6/mcL AO Workflow SS WBC 5.5 103/mcL Invalid Interpretation Code 4.6 - 10.8 10^3/mcL AO Workflow SS LABORATORYOrdered By: SYSTEM SYSTEM on 04-29-2022 GFR 62 ml/min/1.73sqm Invalid Interpretation Code AO Chemistry S GFR Non- 51 ml/min/1.73sqm Invalid Interpretation Code AO Chemistry S Monocyte distribution width Auto (Bld) [Entitic vol] Not Performed 1 *NA* (04/29/22 7:12 AM) Invalid Interpretation Code 0.00 - 20.00 AO Hematology S Comment on above: Result Comment: MDW testing performed only on adult ER patients between the ages of 18-89 years. Absolute lymphocyte counton 04-16-2022 Lymphocytes Auto (Unsp spec) [#/Vol] 0.79 10*3/uL 0.83-4.51 [facility] Work Phone: Basophil percentageon 2021 Basophils/100 WBC (Bld) 0.5 % 0-1 [facility] Work Phone: Chloride [Moles/Vol] 110 mmol/L 98-107 [facility] Work Phone: Eosinophils/100 WBC (Bld) 1.2 % 0-5 [facility] Work Phone: Glucose [Mass/Vol] 104 mg/dL 74-106 [facility] Work Phone: Comment on above: Fasting Glucose resu lt from 100 to 125 mg/dL suggests IMPAIRED HOMEOSTASIS per A.D.A. criteria. Neutrophils (Bld) [#/Vol] 2.5 10*3/uL 2.0-7.7 [facility] Work Phone: Neutrophils/100 WBC (Bld) 61.3 % 47-70 [facility] Work Phone: Potassium [Moles/Vol] 4.0 mmol/L 3.5-5.1 [facility] Work Phone: Comment on above: Slight Hemolysis, Re sult may be falsely increased. Sodium [Moles/Vol] 143 mmol/L 136-145 [facility] Work Phone: WBC (Bld) [#/Vol] 4.2 10*3/uL 4.4-11.0 [facility] Work Phone: Blood erythrocytes count (nu mber/volume)on 04-16-2022 RBC (Bld) [#/Vol] 3.32 10*6/uL 4.2-5.4 [facility] Work Phone: Blood hemoglobin measurement (mass/volume)on 04-16-2022 Hemoglobin (Bld) [Mass/Vol] 11.0 g/dL 12.0-15.0 [facility] Work Phone: Blood lymphocytes/100 leukoc yteson 04-16-2022 Lymphocytes/100 WBC (Bld) 19.0 % 19-41 [facility] Work Phone: Blood monocytes/100 leukocyt eson 04-16-2022 Monocytes/100 WBC (Bld) 17.8 % 0-10 [facility] Work Phone: Blood platelet mean volumeon 04-16-2022 Platelet mean volume (Bld) [Entitic vol] 9.4 fL 6.2-12.0 [facility] Work Phone: Determination of erythrocyte mean corpuscular volume (MCV)on 04-16-2022 MCV (RBC) [Entitic vol] 101.5 fL 81-99 [facility] Work Phone: Hematocrit Auto (Bld) [Volum e fraction]on 04-16-2022 Hematocrit (Bld) [Volume fraction] 33.7 % 37-47 [facility] Work Phone: Laboratory - Chemistry and C hemistry - challengeon 04-16-2022 CO2 [Moles/Vol] 31.0 mmol/L 21.0-32.0 [facility] Work Phone: Urea nitrogen/Creatinine [Mass ratio] 6.7 mg/mg 10-20 [facility] Work Phone: Laboratory - Hematology and Cell countson 04-16-2022 Erythrocyte distribution width (RBC) [Entitic vol] 45.3 fL 35.1-43.9 [facility] Work Phone: Erythrocyte distribution width (RBC) [Ratio] 12.2 % 11.6-14.6 [facility] Work Phone: Immature granulocytes/100 WBC (Bld) 0.200 % 0.0-0.9 [facility] Work Phone: Comment on above: IG% - Immature Granu locytes (promyelocytes, myelocytes and metamyelocytes) > 1% indicates that a LEFT SHIFT is Present. MCH (RBC) [Entitic mass] 33.1 pg 27.0-32.0 [facility] Work Phone: Nucleated RBC/100 WBC (Bld) [Ratio] 0 % 0-5 [facility] Work Phone: MCHC Auto (RBC) [Mass/Vol]on 04-16-2022 MCHC (RBC) [Mass/Vol] 32.6 g/dL 32-36 [facility] Work Phone: No Panel Informationon 04-16 Estimated Creatinine Clearance Calc 52.13 ml/min [facility] Work Phone: Estimated GFR (MDRD) Amer 81 mL/min >60 [facility] Work Phone: Comment on above: GFR Calc Estimated GFR (MDRD) Non-Af Amer 67 mL/min >60 [facility] Work Phone: Comment on above: Non- GFR Calc Platelets bldon 04-16-2022 Platelets (Bld) [#/Vol] 171 10*3/uL 150-450 [facility] Work Phone: Serum or plasma calcium serg urement (mass/volume)on 04-16-2022 Calcium [Mass/Vol] 8.7 mg/dL 8.5-10.1 [facility] Work Phone: Serum or plasma creatinine m easurement (mass/volume)on 04-16-2022 Creatinine [Mass/Vol] 0.89 mg/dL 0.55-1.02 [facility] Work Phone: Comment on above: The validity of the calculated GFR & GFRAA in patients over 70 years has not been determined. Clinical correlation is essential. Serum or plasma urea nitroge n measurement (mass/volume)on 04-16-2022 Urea nitrogen [Mass/Vol] 6 mg/dL 7-18 [facility] Work Phone: Thin prep Papanicolaou smear with manual screeningon 04-16-2022 Thin prep Papanicolaou smear with manual screening 2 5-15 [facility] Work Phone: LABORATORYOrdered By: Moustapha Hernadez on 04-15-2022 Appearance (U) Clear (04/15/22 4:22 PM) Invalid Interpretation Code Clear AO Auto Urine SS Bilirubin Ql (U) Negative (04/15/22 4:22 PM) Invalid Interpretation Code Negative AO Auto Urine SS Color (U) Yellow (04/15/22 4:22 PM) Invalid Interpretation Code AO Auto Urine SS Glucose Test strip (U) [Mass/Vol] Negative Invalid Interpretation Code Negativemg/d L AO Auto Urine SS Hemoglobin Auto test strip (U) [Mass/Vol] Negative (04/15/22 4:22 PM) Invalid Interpretation Code Negative AO Auto Urine SS Ketones Ql (U) Negative Invalid Interpretation Code Negativemg/d L AO Auto Urine SS Troponin I.cardiac DL <= 0.01 ng/mL [Mass/Vol] 12.3 ng/L Invalid Interpretation Code 0.0 - 51.4 ng/L AO ADM SS UA Leuk Est Negative (04/15/22 4:22 PM) Invalid Interpretation Code Negative AO Auto Urine SS UA Nitrite Negative (04/15/22 4:22 PM) Invalid Interpretation Code Negative AO Auto Urine SS UA pH 6.5 (04/15/22 4:22 PM) Invalid Interpretation Code 5.0 - 8.0 AO Auto Urine SS UA Protein Negative Invalid Interpretation Code Negativemg/d L AO Auto Urine SS UA Spec Grav 1.010 *ABN* (04/15/22 4:22 PM) Invalid Interpretation Code 1.015-1.025 AO Auto Urine SS UA Specimen Type Clean Catch (04/15/22 4:22 PM) Invalid Interpretation Code AO Auto Urine SS UA Urobilinogen 0.2 E.U./dL Invalid Interpretation Code 0.2-1.0E.U./ dL AO Auto Urine SS LABORATORYOrdered By: Austin Zhang on 04-15-2022 Basophil, Absolute 0.0 103/mcL Invalid Interpretation Code 0.0 - 0.2 10^3/mcL AO Workflow SS Basophils/100 WBC (Bld) 0.8 % Invalid Interpretation Code 0.0 - 2.5 % AO Workflow SS Eosinophil, Absolute 0.0 103/mcL Invalid Interpretation Code 0.0 - 0.4 10^3/mcL AO Workflow SS Eosinophils/100 WBC (Bld) 0.8 % Invalid Interpretation Code 0.0 - 7.0 % AO Workflow SS Erythrocyte distribution width (RBC) [Ratio] 13.1 % Invalid Interpretation Code 11.5 - 14.5 % AO Workflow SS Hematocrit (Bld) [Volume fraction] 36.1 % Invalid Interpretation Code 37.0 - 47.0 % AO Workflow SS Hgb 12.4 G/dL Invalid Interpretation Code 12.0 - 16.0 G/dL AO Workflow SS Lymphocyte, Absolute 0.8 103/mcL Invalid Interpretation Code 0.8 - 3.9 10^3/mcL AO Workflow SS Lymphocytes/100 WBC (Bld) 18.4 % Invalid Interpretation Code 10.0 - 50.0 % AO Workflow SS MCH (RBC) [Entitic mass] 33.2 pg Invalid Interpretation Code 27.0 - 31.2 pg AO Workflow SS MCHC 34.3 G/dL Invalid Interpretation Code 33.0 - 37.0 G/dL AO Workflow SS MCV (RBC) [Entitic vol] 96.7 fL Invalid Interpretation Code 80.0 - 94.0 fL AO Workflow SS Monocyte distribution width Auto (Bld) [Entitic vol] 21.28 Invalid Interpretation Code 0.00 - 20.00 AO Workflow SS Comment on above: Result Comment: For adults in ED, MDW>20.0 may be associated with a higher risk of sepsis during the first 12hrs of hospital admission Monocyte, Absolute 0.8 103/mcL Invalid Interpretation Code 0.2 - 1.0 10^3/mcL AO Workflow SS Monocytes/100 WBC (Bld) 18.5 % Invalid Interpretation Code 1.7 - 13.0 % AO Workflow SS Neutrophil, Absolute 2.5 103/mcL Invalid Interpretation Code 2.9 - 6.2 10^3/mcL AO Workflow SS Neutrophils/100 WBC (Bld) 61.5 % Invalid Interpretation Code 37.0 - 80.0 % AO Workflow SS Platelet 192 103/mcL Invalid Interpretation Code 130 - 400 10^3/mcL AO Workflow SS Platelet mean volume (Bld) [Entitic vol] 6.9 fL Invalid Interpretation Code 7.4 - 10.4 fL AO Workflow SS RBC 3.73 106/mcL Invalid Interpretation Code 4.20 - 5.40 10^6/mcL AO Workflow SS WBC 4.1 103/mcL Invalid Interpretation Code 4.6 - 10.8 10^3/mcL AO Workflow SS LABORATORYOrdered By: Amanda Moseley on 04-15-2022 Calcium [Mass/Vol] 9.7 mg/dL Invalid Interpretation Code 8.4 - 10.2 mg/dL AO ADM SS Chloride [Moles/Vol] 104 mmol/L Invalid Interpretation Code 98 - 107 mmol/L AO ADM SS CO2 [Moles/Vol] 30 mmol/L Invalid Interpretation Code 23 - 31 mmol/L AO ADM SS Creatinine [Mass/Vol] 1.15 mg/dL Invalid Interpretation Code 0.55 - 1.02 mg/dL AO ADM SS Electrolyte Balance 7.0 mEq/L Invalid Interpretation Code 4.0 - 15.0 mEq/L AO ADM SS Glucose [Mass/Vol] 104 mg/dL Invalid Interpretation Code 80 - 115 mg/dL AO ADM SS Potassium [Moles/Vol] 3.1 mmol/L Invalid Interpretation Code 3.5 - 5.1 mmol/L AO ADM SS Sodium [Moles/Vol] 141 mmol/L Invalid Interpretation Code 136 - 145 mmol/L AO ADM SS Urea nitrogen [Mass/Vol] 7 mg/dL Invalid Interpretation Code 7 - 18 mg/dL AO ADM SS Urea nitrogen/Creatinine [Mass ratio] 6 ratio Invalid Interpretation Code 7 - 27 ratio AO ADM SS LABORATORYOrdered By: SYSTEM SYSTEM on 04-15-2022 GFR 57 ml/min/1.73sqm Invalid Interpretation Code AO Chemistry S GFR Non- 47 ml/min/1.73sqm Invalid Interpretation Code AO Chemistry S Basophil percentageon 2021 Chloride [Moles/Vol] 105 mmol/L 98-107 [facility] Work Phone: Glucose [Mass/Vol] 100 mg/dL 74-106 [facility] Work Phone: Comment on above: Fasting Glucose resu lt from 100 to 125 mg/dL suggests IMPAIRED HOMEOSTASIS per A.D.A. criteria. Potassium [Moles/Vol] 3.7 mmol/L 3.5-5.1 [facility] Work [facility]: Sodium [Moles/Vol] 139 mmol/L 136-145 [facility] Work Phone: WBC (Bld) [#/Vol] 5.5 10*3/uL 4.4-11.0 [facility] Work Phone: Blood erythrocytes count (nu mber/volume)on 04-01-2022 RBC (Bld) [#/Vol] 3.71 10*6/uL 4.2-5.4 [facility] Work [facility]: Blood hemoglobin measurement (mass/volume)on 04-01-2022 Hemoglobin (Bld) [Mass/Vol] 12.2 g/dL 12.0-15.0 [facility] Work Phone: Blood platelet mean volumeon 04-01-2022 Platelet mean volume (Bld) [Entitic vol] 9.0 fL 6.2-12.0 [facility] Work Phone: Determination of erythrocyte mean corpuscular volume (MCV)on 04-01-2022 MCV (RBC) [Entitic vol] 101.1 fL 81-99 [facility] Work Phone: Hematocrit Auto (Bld) [Volum e fraction]on 04-01-2022 Hematocrit (Bld) [Volume fraction] 37.5 % 37-47 [facility] Work Phone: Laboratory - Chemistry and C hemistry - challengeon 04-01-2022 CO2 [Moles/Vol] 28.0 mmol/L 21.0-32.0 [facility] Work Phone: Urea nitrogen/Creatinine [Mass ratio] 8.1 mg/mg 10-20 [facility] Work Phone: Laboratory - Hematology and Cell countson 04-01-2022 Erythrocyte distribution width (RBC) [Entitic vol] 45.6 fL 35.1-43.9 [facility] Work Phone: Erythrocyte distribution width (RBC) [Ratio] 12.2 % 11.6-14.6 [facility] Work Phone: MCH (RBC) [Entitic mass] 32.9 pg 27.0-32.0 [facility] Work Phone: MCHC Auto (RBC) [Mass/Vol]on 04-01-2022 MCHC (RBC) [Mass/Vol] 32.5 g/dL 32-36 [facility] Work Phone: No Panel Informationon 04-01 Estimated GFR (MDRD) Amer 72 mL/min >60 [facility] Work Phone: Comment on above: GFR Calc Estimated GFR (MDRD) Non-Af Amer 60 mL/min >60 [facility] Work Phone: Comment on above: Non- GFR Calc Platelets bldon 04-01-2022 Platelets (Bld) [#/Vol] 251 10*3/uL 150-450 [facility] Work Phone: Serum or plasma calcium serg urement (mass/volume)on 04-01-2022 Calcium [Mass/Vol] 9.1 mg/dL 8.5-10.1 [facility] Work Phone: Serum or plasma creatinine m easurement (mass/volume)on 04-01-2022 Creatinine [Mass/Vol] 0.99 mg/dL 0.55-1.02 [facility] Work Phone: Comment on above: The validity of the calculated GFR & GFRAA in patients over 70 years has not been determined. Clinical correlation is essential. Serum or plasma urea nitroge n measurement (mass/volume)on 04-01-2022 Urea nitrogen [Mass/Vol] 8 mg/dL 7-18 [facility] Work Phone: Thin prep Papanicolaou smear with manual screeningon 04-01-2022 Thin prep Papanicolaou smear with manual screening 6 5-15 [facility] Work Phone: Absolute lymphocyte counton 02-16-2022 Lymphocytes Auto (Unsp spec) [#/Vol] 1.01 10*3/uL 0.83-4.51 [facility] Work Phone: Basophil percentageon 2021 Basophil percentage 2.8 mg/dL 2.5-4.9 [facility] Work Phone: Basophils/100 WBC (Bld) 0.5 % 0-1 [facility] Work Phone: Bilirubin [Mass/Vol] 0.50 mg/dL 0.20-1.00 [facility] Work Phone: Comment on above: For patients on eltr ombopag therapy, use of Dimension [place]ine TBIL is not recommended. Chloride [Moles/Vol] 107 mmol/L 98-107 [facility] Work Phone: Cholesterol [Mass/Vol] 145 mg/dL <200 [facility] Work Phone: Comment on above: <200 mg/dL Desirable 200-240 mg/dL Borderline >240 mg/dL High Risk Eosinophils/100 WBC (Bld) 2.7 % 0-5 [facility] Work Phone: Glucose [Mass/Vol] 86 mg/dL 74-106 [facility] Work Phone: Neutrophils (Bld) [#/Vol] 3.8 10*3/uL 2.0-7.7 [facility] Work Phone: Neutrophils/100 WBC (Bld) 68.5 % 47-70 [facility] Work Phone: Potassium [Moles/Vol] 3.5 mmol/L 3.5-5.1 [facility] Work Phone: Protein [Mass/Vol] 6.2 g/dL 6.4-8.2 [facility] Work Phone: Sodium [Moles/Vol] 141 mmol/L 136-145 [facility] Work Phone: Triglyceride [Mass/Vol] 62 mg/dL <199 [facility] Work Phone: Comment on above: The drugs N-Acetylcy steine and Metamizole may falsely depress this assay.Serum Triglycerides Reference Interval Normal <150 mg/dL Borderline high 150 - 199 mg/dL High 200 - 499 mg/dL Very High > or = 500 mg/dL WBC (Bld) [#/Vol] 5.6 10*3/uL 4.4-11.0 [facility] Work Phone: Blood erythrocytes count (nu mber/volume)on 02-16-2022 RBC (Bld) [#/Vol] 3.76 10*6/uL 4.2-5.4 [facility] Work Phone: Blood hemoglobin measurement (mass/volume)on 02-16-2022 Hemoglobin (Bld) [Mass/Vol] 12.6 g/dL 12.0-15.0 [facility] Work Phone: Blood lymphocytes/100 leukoc yteson 02-16-2022 Lymphocytes/100 WBC (Bld) 18.1 % 19-41 [facility] Work Phone: Blood monocytes/100 leukocyt eson 02-16-2022 Monocytes/100 WBC (Bld) 10.0 % 0-10 [facility] Work Phone: Blood platelet mean volumeon 02-16-2022 Platelet mean volume (Bld) [Entitic vol] 8.5 fL 6.2-12.0 [facility] Work Phone: Determination of erythrocyte mean corpuscular volume (MCV)on 02-16-2022 MCV (RBC) [Entitic vol] 98.9 fL 81-99 [facility] Work Phone: Direct bilirubinon Bilirubin.direct [Mass/Vol] 0.19 mg/dL 0.00-0.30 [facility] Work Phone: Hematocrit Auto (Bld) [Volum e fraction]on 02-16-2022 Hematocrit (Bld) [Volume fraction] 37.2 % 37-47 [facility] Work Phone: Laboratory - Chemistry and C hemistry - challengeon 02-16-2022 ALP [Catalytic activity/Vol] 122 U/L 45-117 [facility] Work Phone: ALT [Catalytic activity/Vol] 23 U/L 13-56 [facility] Work Phone: CO2 [Moles/Vol] 29.0 mmol/L 21.0-32.0 [facility] Work Phone: Globulin (S) [Mass/Vol] 3.0 g/dL 2.2-4.2 [facility] Work Phone: Magnesium [Mass/Vol] 2.1 mg/dL 1.6-2.6 [facility] Work Phone: Urea nitrogen/Creatinine [Mass ratio] 8.1 mg/mg 10-20 [facility] Work Phone: Laboratory - Hematology and Cell countson 02-16-2022 Erythrocyte distribution width (RBC) [Entitic vol] 44.1 fL 35.1-43.9 [facility] Work Phone: Erythrocyte distribution width (RBC) [Ratio] 12.1 % 11.6-14.6 [facility] Work Phone: Immature granulocytes/100 WBC (Bld) 0.200 % 0.0-0.9 [facility] Work Phone: Comment on above: IG% - Immature Granu locytes (promyelocytes, myelocytes and metamyelocytes) > 1% indicates that a LEFT SHIFT is Present. MCH (RBC) [Entitic mass] 33.5 pg 27.0-32.0 [facility] Work Phone: Nucleated RBC/100 WBC (Bld) [Ratio] 0 % 0-5 [facility] Work Phone: MCHC Auto (RBC) [Mass/Vol]on 02-16-2022 MCHC (RBC) [Mass/Vol] 33.9 g/dL 32-36 [facility] Work Phone: No Panel Informationon 02-16 Estimated Creatinine Clearance Calc 62.70 ml/min [facility] Work Phone: Estimated GFR (MDRD) Amer 101 mL/min >60 [facility] Work Phone: Comment on above: GFR Calc Estimated GFR (MDRD) Non-Af Amer 83 mL/min >60 [facility] Work Phone: Comment on above: Non- GFR Calc Thyroid Stimulating Hormone (TSH) 3.98 uIU/mL 0.358-3.74 [facility] Work Phone: Platelets bldon 02-16-2022 Platelets (Bld) [#/Vol] 211 10*3/uL 150-450 [facility] Work Phone: Serum or plasma albumin serg urement (mass/volume)on 02-16-2022 Albumin [Mass/Vol] 3.2 g/dL 3.2-5.0 [facility] Work Phone: Serum or plasma calcium serg urement (mass/volume)on 02-16-2022 Calcium [Mass/Vol] 8.7 mg/dL 8.5-10.1 [facility] Work Phone: Serum or plasma cholesterol in HDL measurement (mass/volume)on 02-16-2022 Cholesterol in HDL [Mass/Vol] 64 mg/dL >40 [facility] Work Phone: Comment on above: The drugs N-Acetylcy steine and Metamizole may falsely depress this assay. Reference Range HDL <40 mg/dL Low HDL Cholesterol HDL >or= 60 mg/dL High HDL Cholesterol Serum or plasma cholesterol in VLDL measurement (mass/volume)on 02-16-2022 Cholesterol in VLDL [Mass/Vol] 12 mg/dL 5-40 [facility] Work Phone: Serum or plasma creatinine m easurement (mass/volume)on 02-16-2022 Creatinine [Mass/Vol] 0.74 mg/dL 0.55-1.02 [facility] Work Phone: Comment on above: The validity of the calculated GFR & GFRAA in patients over 70 years has not been determined. Clinical correlation is essential. Serum or plasma low density lipoprotein (LDL) cholesterol measurement (mass/volume)on 02-16-2022 Cholesterol in LDL [Mass/Vol] 69 mg/dL 0-130 [facility] Work Phone: Serum or plasma urea nitroge n measurement (mass/volume)on 02-16-2022 Urea nitrogen [Mass/Vol] 6 mg/dL 7-18 [facility] Work Phone: Thin prep Papanicolaou smear with manual screeningon 02-16-2022 Thin prep Papanicolaou smear with manual screening 16 U/L 15-37 [facility] Work Phone: Thin prep Papanicolaou smear with manual screening 5 5-15 [facility] Work Phone: Whole blood hemoglobin A1c/t otal hemoglobin ratio (mass fraction)on 02-16-2022 HbA1c (Bld) [Mass fraction] 4.8 % 3.8-5.6 [facility] Work Phone: Comment on above: Normal < 5.7 % Predi abetic 5.7 - 6.4 % Diabetic >or= 6.5 % Please note range changes. No Panel Informationon 02-15 Troponin I High Sensitivity 3 pg/mL 3.0-54.0 [facility] Work Phone: Comment on above: Please Note: New Shanna t Units and Gender Specific Reference Ranges. For more information see Policy Stat Procedure [place] High Sensitivity Troponin (TNIH) and attachments. Serum or plasma albumin/glob ulin mass ratioon 02-15-2022 Albumin/Globulin [Mass ratio] 1.1 {ratio} 0.9-2.4 [facility] Work Phone: Basophil percentageon 2021 Bilirubin [Mass/Vol] 0.50 mg/dL 0.20-1.00 [facility] Work Phone: Comment on above: For patients on eltr ombopag therapy, use of Dimension Constantine TBIL is not recommended. Chloride [Moles/Vol] 109 mmol/L 98-107 [facility] Work Phone: Cholesterol [Mass/Vol] 164 mg/dL <200 [facility] Work Phone: Comment on above: <200 mg/dL Desirable 200-240 mg/dL Borderline >240 mg/dL High Risk Glucose [Mass/Vol] 96 mg/dL 74-106 [facility] Work Phone: Potassium [Moles/Vol] 4.2 mmol/L 3.5-5.1 [facility] Work Phone: Protein [Mass/Vol] 5.8 g/dL 6.4-8.2 [facility] Work Phone: Sodium [Moles/Vol] 141 mmol/L 136-145 [facility] Work Phone: Triglyceride [Mass/Vol] 68 mg/dL <199 [facility] Work Phone: Comment on above: The drugs N-Acetylcy steine and Metamizole may falsely depress this assay.Serum Triglycerides Reference Interval Normal <150 mg/dL Borderline high 150 - 199 mg/dL High 200 - 499 mg/dL Very High > or = 500 mg/dL WBC (Bld) [#/Vol] 7.4 10*3/uL 4.4-11.0 [facility] Work Phone: Blood erythrocytes count (nu mber/volume)on 01-27-2022 RBC (Bld) [#/Vol] 3.62 10*6/uL 4.2-5.4 [facility] Work Phone: Blood hemoglobin measurement (mass/volume)on 01-27-2022 Hemoglobin (Bld) [Mass/Vol] 12.2 g/dL 12.0-15.0 [facility] Work Phone: Blood platelet mean volumeon 01-27-2022 Platelet mean volume (Bld) [Entitic vol] 9.2 fL 6.2-12.0 [facility] Work Phone: Determination of erythrocyte mean corpuscular volume (MCV)on 01-27-2022 MCV (RBC) [Entitic vol] 102.5 fL 81-99 [facility] Work Phone: Hematocrit Auto (Bld) [Volum e fraction]on 01-27-2022 Hematocrit (Bld) [Volume fraction] 37.1 % 37-47 [facility] Work Phone: Laboratory - Chemistry and C hemistry - challengeon 01-27-2022 ALP [Catalytic activity/Vol] 106 U/L 45-117 [facility] Work Phone: ALT [Catalytic activity/Vol] 25 U/L 13-56 [facility] Work Phone: CO2 [Moles/Vol] 32.0 mmol/L 21.0-32.0 [facility] Work Phone: Cobalamin (Vitamin B12) [Mass/Vol] 368 pg/mL 211-911 [facility] Work Phone: Free T4 [Mass/Vol] 1.43 ng/dL 0.76-1.46 [facility] Work Phone: Globulin (S) [Mass/Vol] 2.7 g/dL 2.2-4.2 [facility] Work Phone: Urea nitrogen/Creatinine [Mass ratio] 11.3 mg/mg 10-20 [facility] Work Phone: Laboratory - Hematology and Cell countson 01-27-2022 Erythrocyte distribution width (RBC) [Entitic vol] 46.3 fL 35.1-43.9 [facility] Work Phone: Erythrocyte distribution width (RBC) [Ratio] 12.4 % 11.6-14.6 [facility] Work Phone: MCH (RBC) [Entitic mass] 33.7 pg 27.0-32.0 [facility] Work Phone: MCHC Auto (RBC) [Mass/Vol]on 01-27-2022 MCHC (RBC) [Mass/Vol] 32.9 g/dL 32-36 [facility] Work Phone: No Panel Informationon 01-27 Estimated GFR (MDRD) Amer 93 mL/min >60 [facility] Work Phone: Comment on above: GFR Calc Estimated GFR (MDRD) Non-Af Amer 77 mL/min >60 [facility] Work Phone: Comment on above: Non- GFR Calc Thyroid Stimulating Hormone (TSH) 2.09 uIU/mL 0.358-3.74 [facility] Work Phone: Platelets bldon 01-27-2022 Platelets (Bld) [#/Vol] 239 10*3/uL 150-450 [facility] Work Phone: Serum or plasma albumin serg urement (mass/volume)on 01-27-2022 Albumin [Mass/Vol] 3.1 g/dL 3.2-5.0 [facility] Work Phone: Serum or plasma albumin/glob ulin mass ratioon 01-27-2022 Albumin/Globulin [Mass ratio] 1.1 {ratio} 0.9-2.4 [facility] Work Phone: Serum or plasma calcium serg urement (mass/volume)on 01-27-2022 Calcium [Mass/Vol] 8.8 mg/dL 8.5-10.1 [facility] Work Phone: Serum or plasma cholesterol in HDL measurement (mass/volume)on 01-27-2022 Cholesterol in HDL [Mass/Vol] 66 mg/dL >40 [facility] Work Phone: Comment on above: The drugs N-Acetylcy steine and Metamizole may falsely depress this assay. Reference Range HDL <40 mg/dL Low HDL Cholesterol HDL >or= 60 mg/dL High HDL Cholesterol Serum or plasma cholesterol in VLDL measurement (mass/volume)on 01-27-2022 Cholesterol in VLDL [Mass/Vol] 14 mg/dL 5-40 [facility] Work Phone: Serum or plasma creatinine m easurement (mass/volume)on 01-27-2022 Creatinine [Mass/Vol] 0.80 mg/dL 0.55-1.02 [facility] Work Phone: Comment on above: The validity of the calculated GFR & GFRAA in patients over 70 years has not been determined. Clinical correlation is essential. Serum or plasma low density lipoprotein (LDL) cholesterol measurement (mass/volume)on 01-27-2022 Cholesterol in LDL [Mass/Vol] 84 mg/dL 0-130 [facility] Work Phone: Serum or plasma urea nitroge n measurement (mass/volume)on 01-27-2022 Urea nitrogen [Mass/Vol] 9 mg/dL 7-18 [facility] Work Phone: Thin prep Papanicolaou smear with manual screeningon 01-27-2022 Thin prep Papanicolaou smear with manual screening 14 U/L 15-37 [facility] Work Phone: Thin prep Papanicolaou smear with manual screening 0 5-15 [facility] Work Phone: Absolute lymphocyte counton 11-11-2021 Lymphocytes Auto (Unsp spec) [#/Vol] 0.62 10*3/uL 0.83-4.51 [facility] Work Phone: Basophil percentageon 2021 Basophil percentage 0 SEEN /hpf [facility] Work Phone: Bilirubin [Mass/Vol] 0.80 mg/dL 0.20-1.00 [facility] Work Phone: Comment on above: For patients on eltr ombopag therapy, use of Dimension [place]ine TBIL is not recommended. Chloride [Moles/Vol] 103 mmol/L 98-107 [facility] Work Phone: Glucose [Mass/Vol] 89 mg/dL 74-106 [facility] Work Phone: Comment on above: Please note revised GLUCOSE reference range effective 2017. Potassium [Moles/Vol] 4.3 mmol/L 3.5-5.1 [facility] Work Phone: Protein [Mass/Vol] 5.9 g/dL 6.4-8.2 [facility] Work Phone: Sodium [Moles/Vol] 133 mmol/L 136-145 [facility] Work Phone: Basophils/100 WBC (Bld) 0.2 % 0-1 [facility] Work Phone: Eosinophils/100 WBC (Bld) 1.6 % 0-5 [facility] Work Phone: Neutrophils (Bld) [#/Vol] 9.0 10*3/uL 2.0-7.7 [facility] Work Phone: Neutrophils/100 WBC (Bld) 86.0 % 47-70 [facility] Work Phone: WBC (Bld) [#/Vol] 10.5 10*3/uL 4.4-11.0 [facility] Work Phone: Bilirubin Test strip Ql (U)o n 11-11-2021 Bilirubin Ql (U) Negative Negative [facility] Work Phone: Blood erythrocytes count (nu mber/volume)on 11-11-2021 RBC (Bld) [#/Vol] 3.71 10*6/uL 4.2-5.4 [facility] Work Phone: Blood hemoglobin measurement (mass/volume)on 11-11-2021 Hemoglobin (Bld) [Mass/Vol] 12.1 g/dL 12.0-15.0 [facility] Work Phone: Blood lymphocytes/100 leukoc yteson 11-11-2021 Lymphocytes/100 WBC (Bld) 5.9 % 19-41 [facility] Work Phone: Blood monocytes/100 leukocyt eson 11-11-2021 Monocytes/100 WBC (Bld) 5.6 % 0-10 [facility] Work Phone: Blood platelet mean volumeon 11-11-2021 Platelet mean volume (Bld) [Entitic vol] 10.0 fL 6.2-12.0 [facility] Work Phone: Determination of erythrocyte mean corpuscular volume (MCV)on 11-11-2021 MCV (RBC) [Entitic vol] 95.7 fL 81-99 [facility] Work Phone: Hematocrit Auto (Bld) [Volum e fraction]on 11-11-2021 Hematocrit (Bld) [Volume fraction] 35.5 % 37-47 [facility] Work Phone: Ketones Test strip Ql (U)on 11-11-2021 Ketones Ql (U) Negative Negative [facility] Work Phone: Laboratory - Chemistry and C hemistry - challengeon 11-11-2021 ALP [Catalytic activity/Vol] 86 U/L 45-117 [facility] Work Phone: ALT [Catalytic activity/Vol] 40 U/L 13-56 [facility] Work Phone: CO2 [Moles/Vol] 25.0 mmol/L 21.0-32.0 [facility] Work Phone: Globulin (S) [Mass/Vol] 3.3 g/dL 2.2-4.2 [facility] Work Phone: Urea nitrogen/Creatinine [Mass ratio] 17.7 mg/mg 10-20 [facility] Work Phone: Laboratory - Hematology and Cell countson 11-11-2021 Erythrocyte distribution width (RBC) [Entitic vol] 44.2 fL 35.1-43.9 [facility] Work Phone: Erythrocyte distribution width (RBC) [Ratio] 12.8 % 11.6-14.6 [facility] Work Phone: Immature granulocytes/100 WBC (Bld) 0.700 % 0.0-0.9 [facility] Work Phone: Comment on above: IG% - Immature Granu locytes (promyelocytes, myelocytes and metamyelocytes) > 1% indicates that a LEFT SHIFT is Present. MCH (RBC) [Entitic mass] 32.6 pg 27.0-32.0 [facility] Work Phone: Nucleated RBC/100 WBC (Bld) [Ratio] 0 % 0-5 [facility] Work Phone: MCHC Auto (RBC) [Mass/Vol]on 11-11-2021 MCHC (RBC) [Mass/Vol] 34.1 g/dL 32-36 [facility] Work Phone: Mucus LM Ql (Urine sed)on Mucus Ql (Urine sed) 0 SEEN /hpf [facility] Work Phone: Nitrite Test strip Ql (U)on 11-11-2021 Nitrite Ql (U) Negative Negative [facility] Work Phone: No Panel Informationon 11-11 Estimated Creatinine Clearance Calc 52.24 ml/min [facility] Work Phone: Estimated GFR (MDRD) Amer 80 mL/min >60 [facility] Work Phone: Comment on above: GFR Calc Estimated GFR (MDRD) Non-Af Amer 67 mL/min >60 [facility] Work Phone: Comment on above: Non- GFR Calc Platelets bldon 11-11-2021 Platelets (Bld) [#/Vol] 218 10*3/uL 150-450 [facility] Work Phone: Protein Test strip Ql (U)on 11-11-2021 Protein Ql (U) Negative Negative [facility] Work Phone: Serum or plasma albumin serg urement (mass/volume)on 11-11-2021 Albumin [Mass/Vol] 2.6 g/dL 3.2-5.0 [facility] Work Phone: Serum or plasma albumin/glob ulin mass ratioon 11-11-2021 Albumin/Globulin [Mass ratio] 0.8 {ratio} 0.9-2.4 [facility] Work Phone: Serum or plasma calcium serg urement (mass/volume)on 11-11-2021 Calcium [Mass/Vol] 8.6 mg/dL 8.5-10.1 [facility] Work Phone: Serum or plasma creatinine m easurement (mass/volume)on 11-11-2021 Creatinine [Mass/Vol] 0.90 mg/dL 0.55-1.02 [facility] Work Phone: Comment on above: The validity of the calculated GFR & GFRAA in patients over 70 years has not been determined. Clinical correlation is essential. Serum or plasma urea nitroge n measurement (mass/volume)on 11-11-2021 Urea nitrogen [Mass/Vol] 16 mg/dL 7-18 [facility] Work Phone: Squamous epithelial cells de tection in urine sediment by light microscopyon 11-11-2021 Epithelial cells.squamous LM Ql (Urine sed) 0-5 SEEN /hpf [facility] Work Phone: Thin prep Papanicolaou smear with manual screeningon 11-11-2021 Thin prep Papanicolaou smear with manual screening 25 U/L 15-37 [facility] Work Phone: Thin prep Papanicolaou smear with manual screening 5 5-15 [facility] Work Phone: Urine blood detectionon 11-01 RBC Ql (U) 150 /ul Negative [facility] Work Phone: RBC Ql (U) 0 SEEN /hpf [facility] Work Phone: Urine clarityon 11-11-2021 Clarity (U) Clear Clear [facility] Work Phone: Urine color determinationon 11-11-2021 Color (U) Straw Yellow [facility] Work Phone: Urine glucose detectionon Glucose Ql (U) Normal mg/dl Normal [facility] Work Phone: Urine leukocyte esterase det ection by dipstickon 11-11-2021 Leukocyte esterase Test strip Ql (U) Negative Negative [facility] Work Phone: Urine pHon 11-11-2021 pH (U) 6.0 [pH] [facility] Work Phone: Urine sediment bacteria coun t by microscopy (number/high power field)on 11-11-2021 Bacteria LM.HPF (Urine sed) [#/Area] 0 /[HPF] None Seen [facility] Work Phone: Urine specific gravity measu rementon 11-11-2021 Specific gravity (U) [Rel density] 1.010 [facility] Work Phone: Urobilinogen Auto test strip Ql (U)on 11-11-2021 Urobilinogen Ql (U) Normal mg/dl Normal [facility] Work Phone: LABORATORYOrdered By: Moustapha Cohen on 10-29-2021 Albumin BCP dye [Mass/Vol] 3.9 G/dL Invalid Interpretation Code 3.4 - 4.8 G/dL AO ADM SS Albumin/Globulin [Mass ratio] 1.4 {ratio} Invalid Interpretation Code 1.1 - 2.5 ratio AO ADM SS ALP [Catalytic activity/Vol] 100 U/L Invalid Interpretation Code 40 - 135 U/L AO ADM SS ALT With P-5'-P [Catalytic activity/Vol] 34 U/L Invalid Interpretation Code 14 - 59 U/L AO ADM SS AST With P-5'-P [Catalytic activity/Vol] 22 U/L Invalid Interpretation Code 10 - 40 U/L AO ADM SS Basophil, Absolute 0.00 103/mcL Invalid Interpretation Code 0.00 - 0.19 10^3/mcL AO Auto Heme SS Basophils/100 WBC (Bld) 0.1 % Invalid Interpretation Code 0.0 - 2.5 % AO Auto Heme SS Bilirubin [Mass/Vol] 0.8 mg/dL Invalid Interpretation Code 0.2 - 1.0 mg/dL AO ADM SS Calcium [Mass/Vol] 9.3 mg/dL Invalid Interpretation Code 8.4 - 10.2 mg/dL AO ADM SS Chloride [Moles/Vol] 96 mmol/L Invalid Interpretation Code 98 - 107 mmol/L AO ADM SS Cholesterol [Mass/Vol] 158 mg/dL Invalid Interpretation Code 0 - 200 mg/dL AO ADM SS Cholesterol in HDL [Mass/Vol] 75 mg/dL Invalid Interpretation Code 40 - 60 mg/dL AO ADM SS Cholesterol in LDL [Mass/Vol] 71 mg/dL Invalid Interpretation Code 0 - 130 mg/dL AO ADM SS CO2 [Moles/Vol] 25 mmol/L Invalid Interpretation Code 23 - 31 mmol/L AO ADM SS Creatinine [Mass/Vol] 1.01 mg/dL Invalid Interpretation Code 0.55 - 1.02 mg/dL AO ADM SS Electrolyte Balance 11.0 mEq/L Invalid Interpretation Code AO ADM SS Eosinophil, Absolute 0.00 103/mcL Invalid Interpretation Code 0.00 - 0.40 10^3/mcL AO Auto Heme SS Eosinophils/100 WBC (Bld) 0.0 % Invalid Interpretation Code 0.0 - 7.0 % AO Auto Heme SS Erythrocyte distribution width (RBC) [Ratio] 14.0 % Invalid Interpretation Code 11.5 - 14.5 % AO Auto Heme SS Free T4 [Mass/Vol] 1.99 ng/dL Invalid Interpretation Code 0.76 - 1.46 ng/dL AO ADM SS Globulin 2.7 G/dL Invalid Interpretation Code AO ADM SS Glucose [Mass/Vol] 97 mg/dL Invalid Interpretation Code 80 - 115 mg/dL AO ADM SS Hematocrit (Bld) [Volume fraction] 38.9 % Invalid Interpretation Code 37.0 - 47.0 % AO Auto Heme SS Hemoglobin (Bld) [Mass/Vol] 13.2 G/dL Invalid Interpretation Code 12.0 - 16.0 G/dL AO Auto Heme SS Lymphocyte, Absolute 0.80 103/mcL Invalid Interpretation Code 0.77 - 3.85 10^3/mcL AO Auto Heme SS Lymphocytes/100 WBC (Bld) 7.8 % Invalid Interpretation Code 10.0 - 50.0 % AO Auto Heme SS MCH (RBC) [Entitic mass] 32.1 pg Invalid Interpretation Code 27.0 - 31.2 pg AO Auto Heme SS MCHC (RBC) [Mass/Vol] 33.9 G/dL Invalid Interpretation Code 33.0 - 37.0 G/dL AO Auto Heme SS MCV (RBC) [Entitic vol] 94.4 fL Invalid Interpretation Code 80.0 - 94.0 fL AO Auto Heme SS Monocyte, Absolute 0.70 103/mcL Invalid Interpretation Code 0.15 - 1.00 10^3/mcL AO Auto Heme SS Monocytes/100 WBC (Bld) 6.9 % Invalid Interpretation Code 1.7 - 13.0 % AO Auto Heme SS Neutrophil, Absolute 9.10 103/mcL Invalid Interpretation Code 2.85 - 6.16 10^3/mcL AO Auto Heme SS Neutrophils/100 WBC (Bld) 85.2 % Invalid Interpretation Code 37.0 - 80.0 % AO Auto Heme SS Platelet mean volume (Bld) [Entitic vol] 7.0 fL Invalid Interpretation Code 7.4 - 10.4 fL AO Auto Heme SS Platelets (Bld) [#/Vol] 310 103/mcL Invalid Interpretation Code 130 - 400 10^3/mcL AO Auto Heme SS Potassium [Moles/Vol] 4.5 mmol/L Invalid Interpretation Code 3.5 - 5.1 mmol/L AO ADM SS Protein [Mass/Vol] 6.6 G/dL Invalid Interpretation Code 6.4 - 8.2 G/dL AO ADM SS RBC (Bld) [#/Vol] 4.11 106/mcL Invalid Interpretation Code 4.20 - 5.40 10^6/mcL AO Auto Heme SS Sodium [Moles/Vol] 132 mmol/L Invalid Interpretation Code 136 - 145 mmol/L AO ADM SS Triglyceride [Mass/Vol] 60 mg/dL Invalid Interpretation Code 0 - 150 mg/dL AO ADM SS TSH Qn 0.14 m[IU]/L Invalid Interpretation Code 0.36 - 3.74 mcIU/mL AO ADM SS Urea nitrogen [Mass/Vol] 22 mg/dL Invalid Interpretation Code 7 - 18 mg/dL AO ADM SS Urea nitrogen/Creatinine [Mass ratio] 22 ratio Invalid Interpretation Code 7 - 27 ratio AO ADM SS Uric Acid Lvl 4.4 mg/dL Invalid Interpretation Code 2.6 - 6.2 mg/dL AO ADM SS WBC (Bld) [#/Vol] 10.60 103/mcL Invalid Interpretation Code 4.60 - 10.80 10^3/mcL AO Auto Heme SS LABORATORYOrdered By: SYSTEM SYSTEM on 10-29-2021 Ferritin [Mass/Vol] 58.9 ng/mL Invalid Interpretation Code 8.0 - 252.0 ng/mL AH ADM SS GFR 67 ml/min/1.73sqm Invalid Interpretation Code AO Chemistry S GFR Non- 55 ml/min/1.73sqm Invalid Interpretation Code AO Chemistry S LABORATORYOrdered By: Austin Zhang on 10-09-2021 Creatinine [Mass/Vol] 0.88 mg/dL Invalid Interpretation Code 0.55 - 1.02 mg/dL AO ADM SS LABORATORYOrdered By: SYSTEM SYSTEM on 10-09-2021 GFR 78 ml/min/1.73sqm Invalid Interpretation Code AO Chemistry S GFR Non- 65 ml/min/1.73sqm Invalid Interpretation Code AO Chemistry S CR Spine Cervical 2 or 3 Vie wson 08-10-2019 CR Spine Cervical 2 or 3 Views Patient Name: STEVE FAGAN Diagnostic Radiology Exam Date/Time 08/10/2019 13:03:32 EDT Exam CR Spine Cervical 2 or 3 Views Ordering Physician MD DEJESUS BRADLEY PHILLIP Accession Number [id number] CPT4 Codes 60011 () Reason For Exam cervical myelopathy Report CLINICAL INFORMATION: Neck pain. Radiculopathy. Lateral-only flexion and extension views of the cervical spine are provided. There are no comparison studies. FINDINGS: The alignment of the cervical spine is within normal limits. Mild disc space narrowing and spurring are noted at C6-C7. Vertebral body heights are maintained. There is no subluxation with flexion or extension. The visualized soft tissues are normal. The patient is seen to be edentulous. IMPRESSION: 1. Mild degenerative changes in the lower cervical spine. 2. No subluxation with flexion or extension. Report Dictated on Final Dictated: 08/10/2019 1:49 pm Dictating Physician: MD VENTURA JEFFREY Signed Date and Time: 08/10/2019 1:50 pm Signed by: MD VENTURA JEFFREY Transcribed Date and Time: 08/10/2019 1:49 Normal [facility] XR CERVICAL SPINE (2-3 VIEWS )on 08-10-2019 Patient Name: STEVE FAGAN ---Diagnostic Radiology--- Exam Date/Time 08/10/2019 13:03:32 EDT Exam CR Spine Cervical 2 or 3 Views Ordering Physician MD DEJESUS BRADLEY PHILLIP Accession Number [id number] CPT4 Codes 55817 () Reason For Exam cervical myelopathy Report CLINICAL INFORMATION: Neck pain. Radiculopathy. Lateral-only flexion and extension views of the cervical spine are provided. There are no comparison studies. FINDINGS: The alignment of the cervical spine is within normal limits. Mild disc space narrowing and spurring are noted at C6-C7. Vertebral body heights are maintained. There is no subluxation with flexion or extension. The visualized soft tissues are normal. The patient is seen to be edentulous. IMPRESSION: 1. Mild degenerative changes in the lower cervical spine. 2. No subluxation with flexion or extension. Report Dictated on --- Final --- Dictated: 08/10/2019 1:49 pm Dictating Physician: MD VENTURA JEFFREY Signed Date and Time: 08/10/2019 1:50 pm Signed by: MD VENTURA JEFFREY Transcribed Date and Time: 08/10/2019 1:49 [facility] [place] [facility] Results From [facility] - 08/10/2019 1:52 PM EDT Patient Name: STEVE FAGAN ---Diagnostic Radiology--- Exam Date/Time 08/10/2019 13:03:32 EDT Exam CR Spine Cervical 2 or 3 Views Ordering Physician MD JOHN, DIMA SINGER Accession Number [id number] CPT4 Codes 21715 () Reason For Exam cervical myelopathy Report CLINICAL INFORMATION: Neck pain. Radiculopathy. Lateral-only flexion and extension views of the cervical spine are provided. There are no comparison studies. FINDINGS: The alignment of the cervical spine is within normal limits. Mild disc space narrowing and spurring are noted at C6-C7. Vertebral body heights are maintained. There is no subluxation with flexion or extension. The visualized soft tissues are normal. The patient is seen to be edentulous. IMPRESSION: 1. Mild degenerative changes in the lower cervical spine. 2. No subluxation with flexion or extension. Report Dictated on --- Final --- Dictated: 08/10/2019 1:49 pm Dictating Physician: MD VENTURA JEFFREY Signed Date and Time: 08/10/2019 1:50 pm Signed by: MD VENTURA JEFFREY Transcribed Date and Time: 08/10/2019 1:49 [facility] Documentation of current medications (procedure) Done Invalid Interpretation Code [facility] Work Phone: Protein mass conc Done [facility] Work Phone: Tobacco smoking status NHIS Never [facility] Work Phone: Tobacco smoking status NHIS Never smoker [facility] Work Phone: Tobacco use [facility] Never smoker Invalid Interpretation Code [facility] Work Phone: Office Visiton 02-04-2017 Documentation of current medications (procedure) Done Invalid Interpretation Code [facility] Work Phone: Tobacco smoking status NHIS Never Invalid Interpretation Code [facility] Work Phone: Tobacco use [facility] Never smoker Invalid Interpretation Code [facility] Work Phone: No Panel Information SARS-CoV-2 & FLU Antigen (Rapid) [facility] Work Phone: Vital Signs Date Time Vital Sign Value Performing Clinician Facility 06-26-2025 14:41-0400 Body height 157.5 cm Robby Napier MD Work Phone: [facility] 06-26-2025 14:41-0400 Body mass index (BMI) [Ratio] 34.75 kg/m2 Robby Napier MD Work Phone: [facility] 06-26-2025 14:41-0400 Body weight 86.18 kg Robby Napier MD Work Phone: [facility] 06-26-2025 14:41-0400 Diastolic blood pressure 69 mm[Hg] Robby Napier MD Work Phone: [facility] 06-26-2025 14:41-0400 Heart rate 67 /min Robby Napier MD Work Phone: [facility] 06-26-2025 14:41-0400 Systolic blood pressure 139 mm[Hg] Robby Napier MD Work Phone: [facility] 12-13-2024 14:56-0500 Body height 157.5 cm Robby Napier MD Work Phone: [facility] 12-13-2024 14:56-0500 Body mass index (BMI) [Ratio] 33.32 kg/m2 Robby Napier MD Work Phone: [facility] 12-13-2024 14:56-0500 Body weight 82.64 kg Robby Napier MD Work Phone: [facility] 12-13-2024 14:56-0500 Diastolic blood pressure 77 mm[Hg] Robby Napier MD Work Phone: [facility] 12-13-2024 14:56-0500 Heart rate 64 /min Robby Napier MD Work Phone: [facility] 12-13-2024 14:56-0500 Systolic blood pressure 126 mm[Hg] Robby Napier MD Work Phone: [facility] 12-12-2024 12:28-0500 Body height 157.5 cm Emilia Bergeron MD Work Phone: [facility] 12-12-2024 12:28-0500 Body mass index (BMI) [Ratio] 31.28 kg/m2 Emilia Bergeron MD Work Phone: [facility] 12-12-2024 12:28-0500 Body weight 77.56 kg Emilia Bergeron MD Work Phone: [facility] 12-12-2024 12:28-0500 Diastolic blood pressure 78 mm[Hg] Emilia Bergeron MD Work Phone: [facility] 12-12-2024 12:28-0500 Systolic blood pressure 130 mm[Hg] Emilia Bergeron MD Work Phone: [facility] [employer] 10-20-2024 14:09-0500 Diastolic Blood Pressure Non-Invasive 73 mm[Hg] TRINIDAD GARNICA DO [facility] 10-20-2024 14:09-0500 Heart rate 75 /min TRINIDAD GARNICA DO [facility] 10-20-2024 14:09-0500 Respiratory rate 20 /min TRINIDAD FROMMELT DO [facility] 10-20-2024 14:09-0500 Systolic Blood Pressure Non-Invasive 163 mm[Hg] TRINIDAD FROMMELT DO [facility] 10-20-2024 13:52-0500 Diastolic Blood Pressure Non-Invasive 68 mm[Hg] TRINIDAD FROMMELT DO [facility] 10-20-2024 13:52-0500 Heart rate 70 /min TRINIDAD FROMMELT DO [facility] 10-20-2024 13:52-0500 Respiratory rate 16 /min TRINIDAD FROMMELT DO [facility] 10-20-2024 13:52-0500 Systolic Blood Pressure Non-Invasive 175 mm[Hg] TRINIDAD FROMMELT DO [facility] 10-20-2024 13:35-0500 Diastolic Blood Pressure Non-Invasive 76 mm[Hg] TRINIDAD FROMMELT DO [facility] 10-20-2024 13:35-0500 Systolic Blood Pressure Non-Invasive 190 mm[Hg] TRINIDAD FROMMELT DO [facility] 10-20-2024 12:50-0500 Heart rate 66 /min TRINIDAD FROMMELT DO [facility] 10-20-2024 12:50-0500 Respiratory rate 12 /min TRINIDAD FROMMELT DO [facility] 10-20-2024 11:42-0500 Blood Pressure Cuff Size TRINIDAD FROMMELT DO [facility] 10-20-2024 11:42-0500 Blood Pressure Location TRINIDAD FROMMELT DO [facility] 10-20-2024 11:42-0500 Blood Pressure Method TRINIDDA Gusman [facility] 10-20-2024 11:42-0500 Body height 155 cm TRINIDAD GARNICA DO [facility] 10-20-2024 11:42-0500 Body temperature 97.7 [degF] TRINIDAD GARNICA DO [facility] 10-20-2024 11:42-0500 Body weight 78 kg TRINIDAD GARNICA DO [facility] 09-01-2024 15:08-0400 Body height 157.5 cm Robby Napier MD Work Phone: [facility] 09-01-2024 15:08-0400 Body mass index (BMI) [Ratio] 31.31 kg/m2 Robby Napier MD Work Phone: [facility] 09-01-2024 15:08-0400 Body weight 77.66 kg Robby Napier MD Work Phone: [facility] 09-01-2024 15:08-0400 Diastolic blood pressure 80 mm[Hg] Robby Napier MD Work Phone: [facility] 09-01-2024 15:08-0400 Heart rate 76 /min Robby Napier MD Work Phone: [facility] 09-01-2024 15:08-0400 Systolic blood pressure 127 mm[Hg] Robby Napier MD Work Phone: [facility] 07-20-2024 01:07-0400 Blood Pressure Location NASRIN MULLINS MD [facility] 07-20-2024 01:07-0400 Blood Pressure Method NASRIN MULLINS MD [facility] 07-20-2024 01:07-0400 Diastolic Blood Pressure Non-Invasive 71 mm[Hg] NASRIN MULLINS MD [facility] 07-20-2024 01:07-0400 Heart rate 53 /min NASRIN MULLINS MD [facility] 07-20-2024 01:07-0400 Reason For Taking VItal Signs NASRIN MULLINS MD [facility] 07-20-2024 01:07-0400 Respiratory rate 15 /min NASRIN MULLINS MD [facility] 07-20-2024 01:07-0400 Systolic Blood Pressure Non-Invasive 166 mm[Hg] NASRIN MULLINS MD [facility] 07-19-2024 23:29-0400 Blood Pressure Location NASRIN MULLINS MD [facility] 07-19-2024 23:29-0400 Blood Pressure Method NASRIN MULLINS MD [facility] 07-19-2024 23:29-0400 Body temperature 96.98 [degF] NASRIN MULLINS MD [facility] 07-19-2024 23:29-0400 Body weight 80 kg NASRIN MULLINS MD [facility] 07-19-2024 23:29-0400 Diastolic Blood Pressure Non-Invasive 68 mm[Hg] NASRIN MULLINS MD [facility] 07-19-2024 23:29-0400 Heart rate 49 /min NASRIN MULLINS MD [facility] 07-19-2024 23:29-0400 Respiratory rate 16 /min NASRIN MULLINS MD [facility] 07-19-2024 23:29-0400 Systolic Blood Pressure Non-Invasive 105 mm[Hg] NASRIN MULLINS MD [facility] 06-29-2024 08:14-0400 Body height 162.6 cm Robby Napier MD Work Phone: [facility] 06-29-2024 08:14-0400 Body mass index (BMI) [Ratio] 31.24 kg/m2 Robby Napier MD Work Phone: [facility] 06-29-2024 08:14-0400 Body weight 82.56 kg Robby Napier MD Work Phone: [facility] 06-29-2024 08:14-0400 Diastolic blood pressure 85 mm[Hg] Robby Napier MD Work Phone: [facility] 06-29-2024 08:14-0400 Heart rate 84 /min Robby Napier MD Work Phone: [facility] 06-29-2024 08:14-0400 Systolic blood pressure 199 mm[Hg] Robby Napier MD Work Phone: [facility] 09-20-2023 10:14-0500 Diastolic Blood Pressure Non-Invasive 98 mm[Hg] HEIDI NG MD [facility] 09-20-2023 10:14-0500 Heart rate 89 /min HEIDI NG MD [facility] 09-20-2023 10:14-0500 Systolic Blood Pressure Non-Invasive 171 mm[Hg] HEIDI NG MD [facility] 09-20-2023 09:44-0500 Body height 160 cm HEIDI NG MD [facility] 09-20-2023 09:44-0500 Body weight 87.7 kg HEIDI NG MD [facility] 09-20-2023 09:44-0500 Diastolic Blood Pressure Non-Invasive 117 mm[Hg] HEIDI NG MD [facility] 09-20-2023 09:44-0500 Heart rate 85 /min HEIDI NG MD [facility] 09-20-2023 09:44-0500 Systolic Blood Pressure Non-Invasive 134 mm[Hg] HEIDI GN MD [facility] 09-30-2022 10:45-0500 Body height 165.1 cm Marcio Self Work Phone: CV-Ojgtjrpvt-Pmfvw view DO Work Phone: 09-30-2022 10:45-0500 Body mass index (BMI) [Ratio] 32.28 kg/m2 Marcio Self Work Phone: VO-Kalmaaaob-Tkckr view DO Work Phone: 09-30-2022 10:45-0500 Body surface area Derived from formula 1.95 m2 Marcio Self Work Phone: MF-Ptqcxleut-Dtfgr view DO Work Phone: 09-30-2022 10:45-0500 Body weight 88 kg Marcio Self Work Phone: CW-Sumvzvtlh-Xfpcg view DO Work Phone: 09-30-2022 10:45-0500 Diastolic blood pressure 102 mm[Hg] Marcio Self Work Phone: XM-Msdwqbtsu-Ciect view DO Work Phone: 09-30-2022 10:45-0500 Heart rate 75 /min Marcio Self Work Phone: WB-Wieutoylg-Jtqdi view DO Work Phone: 09-30-2022 10:45-0500 Respiratory rate 20 /min Marcio Self Work Phone: MM-Hhbhzjxad-Oxdzy view DO Work Phone: 09-30-2022 10:45-0500 Systolic blood pressure 156 mm[Hg] Marcio Self Work Phone: VG-Iczcbtjvj-Fosvm view DO Work Phone: 08-11-2022 14:34-0400 Body height 154.[address] Marcio Self Work Phone: [facility] Work Phone: 08-11-2022 14:34-0400 Body mass index (BMI) [Ratio] 37 kg/m2 Dr. Marcio Self Work Phone: [facility] Work Phone: 08-11-2022 14:34-0400 Body weight 88.[address] Marcio Self Work Phone: [facility] Work Phone: 08-11-2022 14:34-0400 Diastolic blood pressure 81 mm[Hg] Dr. Marcio Self Work Phone: [facility] Work Phone: 08-11-2022 14:34-0400 Heart rate 69 /min Dr. Marcio Self Work Phone: [facility] Work Phone: 08-11-2022 14:34-0400 SaO2% (BldA) [Mass fraction] 98 % Dr. Marcio Self Work Phone: [facility] Work Phone: 08-11-2022 14:34-0400 Systolic blood pressure 141 mm[Hg] Dr. Marcio Self Work Phone: [facility] Work Phone: 07-24-2022 09:58-0400 Body height 154.[address] Marcio Self Work Phone: [facility] Work Phone: 07-24-2022 09:58-0400 Body mass index (BMI) [Ratio] 36.1 kg/m2 Dr. Marcio Self Work Phone: [facility] Work Phone: 07-24-2022 09:58-0400 Body weight 86.[address] Marcio Self Work Phone: [facility] Work Phone: 07-13-2022 13:12-0400 Body mass index (BMI) [Ratio] 37 kg/m2 Dr. Marcio Self Work Phone: [facility] Work Phone: 07-13-2022 13:12-0400 Body weight 88.[address] Marcio Self Work Phone: [facility] Work Phone: 04-17-2022 03:33-0400 Diastolic blood pressure 96 mm[Hg] Dr. Marcio Self Work Phone: [facility] Work Phone: 04-17-2022 03:33-0400 Heart rate 96 /min Dr. Marcio Self Work Phone: [facility] Work Phone: 04-17-2022 03:33-0400 Respiratory rate 30 /min Dr. Marcio Self Work Phone: [facility] Work Phone: 04-17-2022 03:33-0400 SaO2% (BldA) [Mass fraction] 97 % Dr. Marcio Self Work Phone: [facility] Work Phone: 04-17-2022 03:33-0400 Systolic blood pressure 172 mm[Hg] Dr. Marcio Self Work Phone: [facility] Work Phone: 04-17-2022 00:14-0400 Inhaled oxygen flow rate 3 L/min Dr. Marcio Self Work Phone: [facility] Work Phone: 04-16-2022 22:52-0400 Body height 160.[address] Marcio Self Work Phone: [facility] Work Phone: 04-16-2022 22:52-0400 Body mass index (BMI) [Ratio] 34.4 kg/m2 Dr. Marcio Self Work Phone: [facility] Work Phone: 04-16-2022 22:52-0400 Body temperature 96.9 [degF] Dr. Marcio Self Work Phone: [facility] Work Phone: 04-16-2022 22:52-0400 Body weight 88.[address] Marcio Self Work Phone: [facility] Work Phone: 04-16-2022 15:13-0400 Diastolic blood pressure 100 mm[Hg] Dr. Marcio Self Work Phone: [facility] Work Phone: 04-16-2022 15:13-0400 Heart rate 85 /min Dr. Marcio Self Work Phone: [facility] Work Phone: 04-16-2022 15:13-0400 Respiratory rate 27 /min Dr. Marcio Self Work Phone: [facility] Work Phone: 04-16-2022 15:13-0400 SaO2% (BldA) [Mass fraction] 94 % Dr. Marcio Self Work Phone: [facility] Work Phone: 04-16-2022 15:13-0400 Systolic blood pressure 167 mm[Hg] Dr. Marcio Self Work Phone: [facility] Work Phone: 04-16-2022 13:25-0400 Body temperature 97.2 [degF] Dr. Marcio Self Work Phone: [facility] Work Phone: 04-16-2022 13:21-0400 Body height 160.[address] Marcio Self Work Phone: [facility] Work Phone: 04-16-2022 13:21-0400 Body mass index (BMI) [Ratio] 35.7 kg/m2 Dr. Marcio Self Work Phone: [facility] Work Phone: 04-16-2022 13:21-0400 Body weight 91.[address] Marcio Self Work Phone: [facility] Work Phone: 04-15-2022 18:01-0400 Diastolic blood pressure 78 mm[Hg] KIAH LAURAKA DO [facility] 04-15-2022 18:01-0400 Heart rate 84 /min KIAH DURESKA DO [facility] 04-15-2022 18:01-0400 Respiratory rate 20 /min KIAH DURESKA DO [facility] 04-15-2022 18:01-0400 Systolic blood pressure 162 mm[Hg] KIAH DURESKA DO [facility] 04-15-2022 16:10-0400 Body temperature 98.42 [degF] KIAH DURESKA DO [facility] 04-15-2022 16:10-0400 Body weight 85 kg KIAH LAURAKA DO [facility] 04-15-2022 16:10-0400 Diastolic blood pressure 80 mm[Hg] KIAH MCGILL DO [facility] 04-15-2022 16:10-0400 Heart rate 86 /min KIAH MCGILL DO [facility] 04-15-2022 16:10-0400 Respiratory rate 20 /min KIAH MCGILL DO [facility] 04-15-2022 16:10-0400 Systolic blood pressure 178 mm[Hg] KIAH MCGILL DO [facility] 02-16-2022 15:17-0400 Body mass index (BMI) [Ratio] 36.7 kg/m2 Dr. Marcio Self Work Phone: [facility] Work Phone: 02-16-2022 15:00-0400 Heart rate 79 /min Dr. Marcio Self Work Phone: [facility] Work Phone: 02-16-2022 13:03-0400 Body temperature 98.1 [degF] Dr. Marcio Self Work Phone: [facility] Work Phone: 02-16-2022 13:03-0400 Diastolic blood pressure 76 mm[Hg] Dr. Marcio Self Work Phone: [facility] Work Phone: 02-16-2022 13:03-0400 Respiratory rate 16 /min Dr. Marcio Self Work Phone: [facility] Work Phone: 02-16-2022 13:03-0400 SaO2% (BldA) [Mass fraction] 99 % Dr. Marcio Self Work Phone: [facility] Work Phone: 02-16-2022 13:03-0400 Systolic blood pressure 150 mm[Hg] Dr. Marcio Self Work Phone: [facility] Work Phone: 02-15-2022 15:17-0400 Body height 160.[address] Marcio Self Work Phone: [facility] Work Phone: 02-15-2022 15:17-0400 Body weight [address] Marcio Self Work Phone: [facility] Work Phone: 01-15-2022 10:55-0400 Diastolic blood pressure 96 mm[Hg] RUTHIE REY MD [facility] 01-15-2022 10:55-0400 Heart rate 68 /min RUTHIE REY MD [facility] 01-15-2022 10:55-0400 Respiratory rate 20 /min RUTHIE REY MD [facility] 01-15-2022 10:55-0400 Systolic blood pressure 188 mm[Hg] RUTHIE REY MD [facility] 01-15-2022 09:11-0400 Body temperature 97.52 [degF] RUTHIE REY MD [facility] 01-15-2022 09:11-0400 Diastolic blood pressure 85 mm[Hg] RUTHIE REY MD [facility] 01-15-2022 09:11-0400 Heart rate 78 /min RUTHIE REY MD [facility] 01-15-2022 09:11-0400 Mean blood pressure 119 mm[Hg] RUTHIE REY MD [facility] 01-15-2022 09:11-0400 Respiratory rate 16 /min RUTHIE REY MD [facility] 01-15-2022 09:11-0400 Systolic blood pressure 187 mm[Hg] RUTHIE REY MD [facility] 11-11-2021 14:40-0500 Diastolic blood pressure 129 mm[Hg] Dr. Marcio Self Work Phone: [facility] Work Phone: 11-11-2021 14:40-0500 Heart rate 72 /min Dr. Marcio Self Work Phone: [facility] Work Phone: 11-11-2021 14:40-0500 Respiratory rate 19 /min Dr. Marcio Self Work Phone: [facility] Work Phone: 11-11-2021 14:40-0500 SaO2% (BldA) [Mass fraction] 99 % Dr. Marcio Self Work Phone: [facility] Work Phone: 11-11-2021 14:40-0500 Systolic blood pressure 158 mm[Hg] Dr. Marcio Self Work Phone: [facility] Work Phone: 11-11-2021 08:46-0500 Body height 160.[address] Marcio Self Work Phone: [facility] Work Phone: 11-11-2021 08:46-0500 Body mass index (BMI) [Ratio] 38.7 kg/m2 Dr. Marcio Self Work Phone: [facility] Work Phone: 11-11-2021 08:46-0500 Body temperature 97.8 [degF] Dr. Marcio Self Work Phone: [facility] Work Phone: 11-11-2021 08:46-0500 Body weight 99.[address] Marcio Self Work Phone: [facility] Work Phone: Encounters Encounter Date Encounter Type Care Provider Facility Start: 09-06-2025 End: 09-06-2025 ambulatory Marcio Self Facility:[facility] Start: 08-28-2025 End: 08-28-2025 ambulatory MARCIO SELF MD Facility:[facility] Start: 08-28-2025 End: 08-28-2025 Patient encounter procedure MARCIO SELF MD [facility] Start: 08-10-2025 End: 08-10-2025 ambulatory Marcio Self Facility:[facility] Start: 08-09-2025 End: 08-09-2025 ambulatory Marcio Self Facility:[facility] Start: 08-07-2025 End: 08-08-2025 ambulatory ANISA OSULLIVAN DO Facility:[facility] Start: 07-24-2025 End: 07-24-2025 ambulatory Marcio Judd Facility:[facility] Start: 07-18-2025 End: 07-18-2025 ambulatory Lilia Hale Facility:[facility] Start: 07-12-2025 End: 07-12-2025 ambulatory Marcio Self Facility:[facility] Start: 06-28-2025 End: 06-28-2025 ambulatory MARCIO SELF MD Facility:[facility] Start: 06-26-2025 End: 06-26-2025 Office outpatient visit 40 minutes Robby Napier MD Work Phone: [facility] Comment on above: Tardive dyskinesia ( Primary Dx); Migraine without aura and without status migrainosus, not intractable Start: 06-26-2025 End: 06-26-2025 ambulatory ROBBY [facility] Start: 06-07-2025 End: 06-07-2025 ambulatory Marcio Self Facility:[facility] Start: 05-29-2025 End: 05-29-2025 ambulatory MARCIO SELF MD Facility:[facility] Start: 05-14-2025 End: 05-15-2025 ambulatory MARCIO SELF MD Facility:[facility] Start: 04-25-2025 End: 04-25-2025 ambulatory PHANI SAMAYOA PA-C Facility:[facility] Start: 04-25-2025 End: 04-25-2025 Patient encounter procedure PHANI SAMAYOA PA-C [facility] Start: 04-24-2025 End: 04-24-2025 ambulatory Baldo Nova Facility:[facility] Start: 04-20-2025 End: 04-20-2025 Refill Zulema Okeefe PharmD [facility] Comment on above: Tardive dyskinesia Start: 04-17-2025 End: 04-19-2025 Telephone encounter Robby Napier MD Work Phone: [facility] Comment on above: Medication Problem ( deutetrabenazine (Austedo)) Start: 04-16-2025 End: 04-16-2025 ambulatory ANISA OSULLIVAN DO Facility:[facility] Start: 04-16-2025 End: 04-16-2025 Patient encounter procedure ANISA OSULLIVAN DO [facility] Start: 03-30-2025 End: 03-30-2025 ambulatory Marcio Self Facility:[facility] Start: 03-27-2025 End: 03-27-2025 Telephone encounter Zulema Okeefe PharmD [facility] Comment on above: Medication Problem ( Austedo) Start: 03-22-2025 End: 04-15-2025 Telephone encounter Robby Napier MD Work Phone: [facility] Comment on above: Other (Requesting st op order ) Start: 03-22-2025 End: 03-22-2025 ambulatory ROBBY NAPIER [facility] Start: 03-16-2025 End: 03-16-2025 ambulatory Marcio Self Facility:[facility] Start: 03-13-2025 End: 03-14-2025 ambulatory Marcio Self Facility:[facility] Start: 03-07-2025 End: 03-07-2025 ambulatory MARCIO SELF MD Facility:[facility] Start: 03-07-2025 End: 03-07-2025 Patient encounter procedure BALDO CASEY MD [facility] Start: 03-06-2025 End: 03-06-2025 ambulatory Santiago Canas Facility:[facility] Start: 02-27-2025 End: 02-27-2025 ambulatory MARCIO SELF MD Facility:[facility] Start: 02-27-2025 End: 02-27-2025 Patient encounter procedure BOB MOSELEY FINANCIAL INVESTMENT ADVISER-CAREER SERVICES MANAGER [facility] Start: 02-22-2025 End: 02-22-2025 ambulatory Ke Crowder Facility:[facility] Start: 02-21-2025 End: 02-21-2025 ambulatory MARCIO SELF MD Facility:[facility] Start: 02-21-2025 End: 02-21-2025 Patient encounter procedure BOB MOSELEY FINANCIAL INVESTMENT ADVISER-CAREER SERVICES MANAGER [facility] Start: 02-01-2025 End: 02-01-2025 ambulatory Aristeo ESPOSITO Facility:[facility] Start: 01-26-2025 End: 01-26-2025 ambulatory MARCIO SELF MD Facility:[facility] Start: 01-17-2025 End: 01-17-2025 ambulatory Lilia Hylton Dheerajkameron Facility:[facility] Start: 01-12-2025 End: 01-12-2025 Telephone encounter Monique Agueda DONATO - CAREER SERVICES MANAGER Work Phone: [facility] Start: 01-05-2025 ambulatory Lilia Hylton Chaparrotarun Facili ty:[facility] Start: 01-02-2025 End: 01-02-2025 ambulatory Lilia Hylton Chaparrotarun Facility:[facility] Start: 12-29-2024 ambulatory Lilia Hylton [place]un Facili ty:[facility] Start: 12-29-2024 End: 12-29-2024 ambulatory Lilia Hylton Dheerajkameron Facility:[facility] Start: 12-19-2024 End: 12-23-2024 ambulatory MARCIO SELF MD Facility:[facility] Start: 12-19-2024 End: 12-23-2024 Outreach Lab MARCIO SELF MD [facility] Start: 12-15-2024 ambulatory Marcio Self Facility: [facility] Start: 12-13-2024 End: 12-13-2024 Office outpatient visit 25 minutes Robby Napier MD Work Phone: [facility] Comment on above: Blepharospasm of bot h eyes (Primary Dx); Tardive dyskinesia; Gait disturbance; Migraine without aura and without status migrainosus, not intractable; Obstructive sleep apnea Start: 12-13-2024 End: 12-13-2024 ambulatory ROBBY NAPIER [facility] Start: 12-12-2024 End: 12-12-2024 Office outpatient new 45 minutes Emilia Bergeron MD Work Phone: [facility] Comment on above: Blepharospasm of bot h eyes Start: 12-12-2024 End: 12-12-2024 ambulatory EMILIA BERGERON [facility] Start: 12-08-2024 End: 12-08-2024 Emergency department patient visit Moni Peñaloza Facility:[facility] Start: 12-08-2024 End: 12-08-2024 ambulatory Lilia Hale Facility:[facility] Start: 11-27-2024 ambulatory Jhonathan Scanlon ty:[facility] Start: 11-25-2024 End: 11-25-[address] JHONATHAN DELUNA DO Facility:[facility] Start: 11-25-2024 End: 11-25-[address] JHONATHAN DELUNA DO [facility] Start: 11-23-2024 End: 11-23-2024 ambulatory Santiago Floresita Facility:[facility] Start: 11-07-2024 End: 11-07-2024 ambulatory Marcio Judd Facility:[facility] Start: 10-20-2024 End: 10-20-2024 Emergency department patient visit TRINIDAD GARNICA DO [facility] Start: 10-11-2024 End: 10-18-2024 Telephone encounter Robby Napier MD Work Phone: [facility] Comment on above: Orders Start: 10-09-2024 End: 10-09-2024 ambulatory Bethany Vásquez RN [facility] Clinical Communication Start: 10-09-2024 End: 10-09-2024 Patient encounter procedure Bethany Vásquez RN [facility] Clinical Communication Comment on above: Migraine without aur a and without status migrainosus, not intractable (Primary Dx) Start: 09-25-2024 End: 09-25-2024 ambulatory [facility] Facility:[facility] Start: 09-22-2024 End: 09-22-2024 ambulatory Marcio Self Facility[facility] Start: 09-20-2024 End: 09-20-2024 ambulatory Marcio Self Facility:[facility] Start: 09-19-2024 End: 11-13-2024 ambulatory ROBBY NAPIER JR, MD Facility:[facility] Start: 09-19-2024 End: 11-13-2024 Physical therapy management ROBBY NAPIER JR, MD [facility] Start: 09-12-2024 End: 09-12-2024 ambulatory Marisela Freitas RN [facility] Clinical Communication Start: 09-12-2024 End: 09-12-2024 Patient encounter procedure Marisela Freitas RN [facility] Clinical Communication Start: 09-12-2024 End: 09-12-2024 Telephone encounter Robby Napier MD Work Phone: [facility] Comment on above: Med Management (Ingr ezza 60) Start: 09-11-2024 End: 09-11-2024 ambulatory Paola Whiteside RN [facility] Clinical Communication Start: 09-11-2024 End: 09-11-2024 Patient encounter procedure Paola Whiteside RN [facility] Clinical Communication Comment on above: Tardive dyskinesia ( Primary Dx) Start: 09-11-2024 End: 09-11-2024 Telephone encounter Martita Barger RN [facility] Clinical Communication Start: 09-08-2024 End: 09-08-2024 ambulatory Marcio Self Facility:[facility] Start: 09-04-2024 End: 09-04-2024 Refvonnie Romeo APRN [facility] Work Phone: [facility] Comment on above: Tardive dyskinesia; Chorea Start: 09-01-2024 End: 09-01-2024 Office outpatient visit 25 minutes Robby Napier MD Work Phone: [facility] Comment on above: Blepharospasm of bot h eyes (Primary Dx); Tardive dyskinesia; Chorea; Gait disturbance; Migraine without aura and without status migrainosus, not intractable Start: 09-01-2024 End: 09-01-2024 ambulatory ROBBY [facility] Start: 08-15-2024 End: 08-15-2024 ambulatory ROBBY [facility] Start: 08-15-2024 End: 08-15-2024 Subsequent hospital visit by physician Robby Napier MD Work Phone: [facility] Comment on above: Syncope and collapse Start: 08-01-2024 End: 08-01-2024 Telephone encounter Robby Napier MD Work Phone: [facility] Comment on above: Other (update) Other (update); Rele ase of Information Start: 07-26-2024 End: 07-26-2024 Subsequent hospital visit by physician Robby Napier MD Work Phone: [facility] Comment on above: Chorea; Tardive dyskinesia Start: 07-26-2024 End: 07-26-2024 ambulatory [facility] Start: 07-19-2024 End: 07-20-2024 Emergency department patient visit NASRIN MULLINS MD [facility] Start: 07-17-2024 End: 07-19-2024 Telephone encounter Robby Napier MD Work Phone: [facility] Comment on above: Medication Problem ( Qulipta) Start: 07-17-2024 End: 07-17-2024 ambulatory [facility] Start: 07-11-2024 End: 07-12-2024 Orders Only Robby Napier MD Work Phone: [facility] Comment on above: Migraine with aura a nd without status migrainosus, not intractable Start: 07-10-2024 End: 07-11-2024 Telephone encounter Robby Napier MD Work Phone: [facility] Clinical Communication Comment on above: Other (Prior authori zation) Start: 07-07-2024 End: 07-10-2024 Refill Demond Jean Baptiste [facility] Work Phone: [facility] Comment on above: Tardive dyskinesia ( Primary Dx); Chorea Start: 06-29-2024 End: 06-29-2024 Telephone encounter Robby Napier MD Work Phone: [facility] Comment on above: Advice Only Start: 06-29-2024 End: 06-29-2024 Office outpatient new 60 minutes Robby Napier MD Work Phone: [facility] Comment on above: Chorea (Primary Dx); Tardive dyskinesia; Functional movement disorder; Migraine with aura and without status migrainosus, not intractable Start: 06-29-2024 End: 06-29-2024 ambulatory ROBBY NAPIER [facility] Start: 06-22-2024 End: 06-26-2024 Telephone encounter Robby Napier MD Work Phone: [facility] Comment on above: Appointment Confirma tion Start: 04-26-2024 End: 04-26-2024 ambulatory MARCIO SELF MD Facility:[facility] Start: 04-26-2024 End: 04-26-2024 Patient encounter procedure MARCIO SELF MD [facility] Start: 10-11-2023 End: 10-11-2023 ambulatory HEIDI NG MD Facility:[facility] Start: 10-11-2023 End: 10-11-2023 Patient encounter procedure HEIDI NG MD [facility] Start: 09-20-2023 End: 09-20-2023 ambulatory HEIDI NG MD Facility:[facility] Start: 09-20-2023 End: 09-20-2023 SAME DAY STAY HEIDI NG MD [facility] Start: 08-30-2023 End: 08-30-2023 ambulatory HEIDI NG MD Facility:[facility] Start: 08-30-2023 End: 08-30-2023 Patient encounter procedure HEIDI NG MD [facility] Start: 08-13-2023 End: 10-05-2023 ambulatory MARCIO SELF MD Facility:[facility] Start: 08-13-2023 End: 10-05-2023 Physical therapy management MARCIO SELF MD [facility] Start: 08-02-2023 End: 08-02-2023 ambulatory MARCIO SELF MD Facility:[facility] Start: 08-02-2023 End: 08-02-2023 Patient encounter procedure BALDO CASEY MD [facility] Start: 07-07-2023 End: 07-08-2023 ambulatory HEIDI CHAMBERS [facility] Start: 06-07-2023 End: 06-07-2023 ambulatory MARCIO SELF MD Facility:[facility] Start: 06-01-2023 End: 06-01-2023 ambulatory MARCIO SELF MD Facility:[facility] Start: 06-01-2023 End: 06-01-2023 Patient encounter procedure MARCIO SELF MD [facility] Start: 05-17-2023 End: 05-17-2023 ambulatory DANII PIERRE MD Facility:[facility] Start: 05-14-2023 End: 05-14-2023 ambulatory DANII PIERRE MD Facility:[facility] Start: 05-03-2023 End: 05-03-2023 Patient encounter procedure DANII PIERRE MD [facility] Start: 03-18-2023 End: 04-21-2023 Physical therapy management KE CROWDER MD [facility] Start: 02-23-2023 End: 02-23-2023 Patient encounter procedure MARCIO SELF MD [facility] Start: 10-07-2022 ambulatory Dilcia Bobby Faci lity:[id number] Start: 09-30-2022 Office outpatient ne w 45 minutes Marcio Self Work Phone: [facility] Work Phone: Start: 09-30-2022 Patient encounter procedure Marcio Self Work Phone: [facility] Work Phone: Start: 09-30-[address] Marcio Self Facility:[id number] Start: 08-11-2022 End: 08-11-[address] Marcio Self Work Phone: [facility]astro[facility] Start: 08-05-2022 End: 08-05-[address] Marcio Self Work Phone: [facility] Work Phone: Start: 08-05-2022 End: 08-05-[address] Marcio Self Work Phone: [facility] Start: 08-04-2022 End: 10-13-2022 Physical therapy management KE CROWDER MD [facility] Start: 07-24-2022 End: 07-24-[address] Marcio Self Work Phone: [facility]opa[facility] Start: 07-21-2022 End: 07-21-[address] Marcio Self Work Phone: [facility] Work Phone: Start: 07-21-2022 End: 07-21-[address] Marcio Self Work Phone: [facility] Start: 07-13-2022 End: 07-13-[address] Marcio Self Work Phone: [facility] Start: 06-17-2022 End: 06-17-[address] Marcio Self Work Phone: [facility] Start: 06-03-2022 End: 06-03-[address] Marcio Self Work Phone: [facility] Start: 05-12-2022 End: 05-12-2022 Patient encounter procedure DANII PIERRE MD [facility] Start: 04-29-2022 End: 06-23-2022 Physical therapy management MARCIO SELF MD [facility] Start: 04-29-2022 End: 06-23-2022 Special examination status MARCIO SELF MD [facility] Start: 04-29-2022 End: 04-29-2022 Patient encounter procedure MARCIO SELF MD [facility] Start: 04-16-2022 End: 04-17-2022 Emergency department patient visit Dr. Marcio Self Work Phone: [facility] Start: 04-16-2022 End: 04-16-2022 Emergency department patient visit Dr. Marcio Self Work Phone: [facility] Start: 04-15-2022 End: 04-15-2022 Emergency department patient visit KIAH MCGILL DO [facility] Start: 04-01-2022 End: 04-01-[address] Marcio Self Work Phone: [facility] Start: 04-01-[address] Marcio Self Work Phone: [facility] Start: 03-05-2022 End: 03-05-[address] DEBI MIRANDA DO [facility] Start: 03-04-2022 End: 03-04-2022 Patient encounter procedure MARCIO SELF MD [facility] Start: 02-16-2022 Non-patient / Non-visit Dr. Marcio Self Work Phone: [facility] Inpatient Physicians Start: 02-16-2022 Non-patient / Non-visit Dr. Marcio Self Work Phone: [facility] Start: 02-16-2022 Non-patient / Non-visit Dr. Marcio Self Work Phone: [facility] Start: 02-15-2022 Non-patient / Non-visit Dr. Marcio Self Work Phone: [facility] Start: 02-15-2022 End: 02-16-2022 Evaluation and management of inpatient Dr. Marcio Self Work Phone: [facility] Start: 02-06-2022 End: 04-07-2022 Coordination of care plan NOMI PICKARD FINANCIAL INVESTMENT ADVISER-CAREER SERVICES MANAGER [facility] Start: 01-29-2022 End: 01-29-[address] Marcio Self Work Phone: [facility]Laboratory, Specimen Start: 01-27-2022 End: 01-27-[address] Marcio Self Work Phone: [facility] Start: 01-27-[address] Marcio Self Work Phone: [facility] Start: 01-26-2022 End: 01-26-2022 Patient encounter procedure NOMI PICKARD FINANCIAL INVESTMENT ADVISER-CAREER SERVICES MANAGER [facility] Start: 01-21-2022 End: 01-21-2022 Patient encounter procedure MARCIO SELF MD [facility] Start: 01-15-2022 End: 01-15-2022 Emergency department patient visit RUTHIE REY MD [facility] Start: 01-14-2022 End: 01-14-[address] Marcio Self Work Phone: [facility] Start: 01-06-2022 End: 01-06-2022 Patient encounter procedure MARCIO SELF MD [facility] Start: 12-24-2021 End: 12-24-[address] Marcio Self Work Phone: [facility] Start: 12-16-2021 End: 12-16-2021 Patient encounter procedure ANNMARIE BRANTLEY FINANCIAL INVESTMENT ADVISER-CAREER SERVICES MANAGER [facility] Start: 11-24-2021 End: 11-24-2021 Patient encounter procedure MARCIO SELF MD [facility] Start: 11-11-2021 End: 11-11-2021 Emergency department patient visit Dr. Marcio Self Work Phone: [facility] Start: 10-29-2021 End: 10-29-2021 Patient encounter procedure MARCIO SELF MD [facility] Start: 10-15-2021 End: 10-15-[address] Marcio Self Work Phone: [facility] Start: 10-09-2021 End: 10-09-[address] CHELLE SHARMA MD [facility] Start: 10-07-2021 End: 10-07-2021 Patient encounter procedure MARCIO SELF MD [facility] Start: 09-19-2020 End: 09-19-2020 Subsequent hospital visit by physician Matt Mccabe Work Phone: [facility] Comment on above: Dizziness and giddin ess Start: 08-10-2019 End: 08-10-2019 Subsequent hospital visit by physician Dima Dejesus Work Phone: [facility] Procedures Date Procedure Procedure Detail Performing Clinician Start: 05-14-2025 Reverse prosthetic total arthroplasty of left shoulder MARCIO SELF MD Comment on above: Left reverse total shoulder arthroplasty by STALLING Start: 08-15-2024 EEG EXTENDED MORE THAN 1 HOUR Robby cuevas MD Work Phone: Start: 09-20-2023 PM Peripheral Injection with Fluoro SN 1 HEIDI NG MD Comment on above: auto-populated from documented surgical case Start: 09-20-2023 PM Peripheral Injection with Fluoro SN 2 MARCIO SELF MD Comment on above: auto-populated from documented surgical case Start: 07-21-2022 MRI of joint of lower extremity Dr. Jon Self Work Phone: Start: 07-13-2022 End: 07-13-2022 Plain X-ray of shoulder Dr. Marcio burch Work Phone: Start: 04-16-2022 CT of head without contrast Dr. Marcio merrill Work Phone: Start: 04-16-2022 Plain chest X-ray Dr. Marcio Self Work Phone: Start: 02-16-2022 X-ray of lumbar spine, two or three views Dr. Marcio Self Work Phone: Start: 02-16-2022 MRI of brain without contrast Dr. Marcio Self Work Phone: Start: 02-15-2022 CT angiography of head and neck Dr. Jon Self Work Phone: Start: 02-15-2022 CT of head without contrast Dr. Marcio merrill Work Phone: Start: 02-15-2022 Plain chest X-ray Dr. Marcio Self Work Phone: Start: 01-14-2022 Radiologic examination of knee Dr. Case Self Work Phone: Start: 12-24-2021 Radiography of thoracic spine Dr. Marcio Self Work Phone: Start: 12-24-2021 X-ray of lumbosacral spine Dr. Marcio zhao Work Phone: Start: 11-11-2021 Plain chest X-ray Dr. Marcio Self Work Phone: Start: 11-11-2021 CT of head without contrast Dr. Marcio merrill Work Phone: Start: 10-15-2021 Plain X-ray of shoulder Dr. Marcio burch Work Phone: Start: 04-17-2021 Echocardiography MARCIO SELF MD Comment on above: (04/17/21) Summary: 1. Left ventricle: The cavity size is normal. Wall thickness is mildly increased. Systolic function is normal. The estimatedejection fraction is 60-65%. Wall motion is normal; there are no regional wall motion abnormalities. Diastolic dysfunctionis present. 2. Aortic valve: The valve is possibly bicuspid. The leaflets are mildly thickened and mildly calcified. 3. Mitral valve: The annulus is mildly calcified. There is mild regurgitation. 4. Left atrium: The atrium is dilated. 5. Right ventricle: The RV systolic pressure by Doppler is 22 mm Hg. 6. Right atrium: The estimated right atrial pressure is 3 mm Hg. 7. Atrial septum: Echo contrast study shows no shunt. Start: 04-01-2020 Arthroplasty of knee MARCIO SELF MD Comment on above: LEFT Start: 08-10-2019 Radex spine cervical 2 or 3 views Bhavin Dejesus Work Phone: Start: 06-27-2019 Arthroscopy of shoulder MARCIO SELF MD Comment on above: right Start: 06-27-2019 History of operative procedure on shoulder MARCIO SELF MD Comment on above: Right. Start: 02-17-2019 Colonoscopy MARCIO SELF MD Comment on above: multiple Start: 02-15-2019 Esophagogastroduodenoscopy MARCIO SELF MD Comment on above: multiple Start: 06-14-2017 Endoscopy MARCIO SELF MD Comment on above: upper Start: 12-31-2016 End: 12-31-2016 Drain/inject, joint/bursa Perla Linda Work Phone: Start: 07-07-2016 Cardiovascular stress test using pharmacologic stress agent MARCIO SELF MD Comment on above: CONCLUSION: Lexiscan nuclear stress test showing small fixed defects involving the anterior apex and inferior wall that most likely artifactual. There is no reversible ischemia noted. Ejection fraction 70% with normal wall motion. Start: 02-16-2016 Echocardiography MARCIO SELF MD Comment on above: [facility] Start: 11-01-2011 Decompression of median nerve MARCIO BERNAL MD Comment on above: left Appendectomy MARCIO Collins Comment on above: 03/1985 Appendectomy Marcio Self Work Phone: Comment on above: 1984; Arthroscopy of knee MARCIO MERRILL MD Comment on above: bilat Cholecystectomy MARCIO Burch MD Comment on above: 03/1985 Cholecystectomy Marcio bernal Work Phone: Comment on above: 1984 - OPEN; Colonoscopy MARCIO Collins Comment on above: multiple Colonoscopy Marcio Self Work Phone: Comment on above: 1996- NORMAL AND 2008- OTHER DOCTOR- COL ON [id number]- RKE COLON POLYP, TICS LEFT , HEMORRHIODS; Decompression of median nerve Marcio Self Work Phone: Endoscopy MARCIO Collins Comment on above: upper Entire nasal septum (body structure) MARCIO SELF MD Comment on above: multiple Esophagogastroduodenoscopy S CHANDNI SELF MD Comment on above: multiple Esophagogastroduodenoscopy S chandni Self Work Phone: Comment on above: OTHER UNSURE OF DATE OR [id number]- RKE- PROXIMAL CANDI ESOPHAGITIS, GERD , SLIDING H/H, GASTRITIS; H/O: artificial joint Aftercare following joint replacement MARCIO SELF MD Nasal septoplasty Marcio merrill Work Phone: Operative procedure on knee Marcio Self Work Phone: Comment on above: SCOPE 2005 AND 2007- BILATERAL; SARS-CoV-2 & FLU Antigen (Rapid) Dr. Marcio Self Work Phone: Tonsillectomy MARCIO SELF MD Comment on above: 06/1996 Tonsillectomy and adenoidectomy Marcio Self Work Phone: Comment on above: 1995; Plan of Treatment Date Care Activity Detail Author Start: 09-26-2025 End: 09-26-2025 Patient encounter procedure 09/26/2025 2:40 PM EST Office Visit [facility] [address] [phone] Robby Napier MD [address] [phone] [facility] Start: 07-02-2025 Influenza vaccination Influenza Vacc ine (#1) [facility] Start: 06-26-2025 End: 06-26-2025 Patient encounter procedure 06/26/2025 2:40 PM EDT Office Visit [facility] [address] [phone] Robby Napier MD [address] [phone] [facility] Start: 05-08-2025 Pneumococcal Vaccine : 50+ Years (3 of 3 - PCV20 or PCV21) Pneumococcal Vaccine: 50+ Years (3 of 3 - PCV20 or PCV21) [facility] Start: 05-08-2025 Pneumococcal Vaccine : 65+ Years (3 of 3 - PPSV23 or PCV20) Pneumococcal Vaccine: 65+ Years (3 of 3 - PPSV23 or PCV20) [facility] Start: 03-22-2025 End: 03-22-2025 Patient encounter procedure 03/22/2025 10:00 AM EDT Office Visit [facility] [address] [phone] Robby Napier MD [address] [address] [facility] Start: 01-12-2025 End: 01-12-2025 Patient encounter procedure 01/12/2025 2:00 PM EDT Procedure Visit [facility] Neurology - [place] [address] [place] [phone] Emilia Bergeron MD [address] [place] [address] [facility] Start: 12-07-2024 End: 12-07-2024 Patient encounter procedure 12/07/2024 10:00 AM EST Office Visit [facility] [address] [place] [phone] Emilia Bergeron MD [address] [facility] [place] [address] [facility] Neurology [facility] Start: 12-05-2024 End: 12-05-2024 Patient encounter procedure 12/05/2024 9:00 AM EST Office Visit [facility] [address] [place] [phone] Robby Napier MD [address] [place] [address] [facility] Start: 11-01-2024 Medicare Advantage A nnual Wellness Visit Medicare Advantage Annual Wellness Visit [facility] Start: 09-01-2024 End: 09-01-2024 Patient encounter procedure [facility] Start: 08-15-2024 End: 08-15-2024 Patient encounter procedure 08/15/2024 12:00 PM EDT Appointment [facility] [address] [place] [id number] Robby Napier MD [address] [place] [address] [place] [address] [facility] Start: 08-01-2024 End: 08-01-2025 EEG extended more than 1 hour EEG extended more than 1 hour Neurology Routine Syncope and collapse Expected: 08/01/2024 (Approximate), Expires: 08/01/2025 [facility] Work Phone: Comment on above: Expected: 08/01/2024 (Approximate), Expires: 08/01/2025 Start: 07-26-2024 End: 07-26-2024 Patient encounter procedure 07/26/2024 8:15 AM EDT Appointment [facility] [address] [place] [phone] Robby Napier MD [address] [place], [place] [id number] [facility] Start: 07-17-2024 End: 07-17-2024 Patient encounter procedure 07/17/2024 1:45 PM EDT Appointment [facility] [address] [place] [phone] Robby Napier MD [address] [place] [id number] [facility] MRI Start: 07-17-2024 Subsequent hospital visit by physician 07/17/2024 1:45 PM EDT Hospital Encounter [facility] [address] [place] [phone] Robby Napier MD [address] [address] [facility] Start: 07-02-2024 COVID-19 Vaccine ( season) COVID-19 Vaccine ( season) [facility] Start: 07-02-2024 COVID-19 Vaccine ( season) COVID-19 Vaccine ( season) [facility] Start: 07-02-2024 Influenza vaccination Influenza Vacc ine (#1) [facility] Start: 06-29-2024 End: 06-29-2025 Creatinine [Mass/volume] in Serum or Plasma Creatinine, Serum Lab Routine Chorea Tardive dyskinesia Expected: 06/29/2024 (Approximate), Expires: 06/29/2025 [facility] Comment on above: Expected: 06/29/2024 (Approximate), Expires: 06/29/2025 Start: 06-29-2024 End: 06-29-2025 MR Brain WO and W contrast IV MR brain w and wo contrast Imaging Routine Chorea Tardive dyskinesia Expected: 06/29/2024, Expires: 06/29/2025 [facility] Work Phone: Comment on above: Expected: 06/29/2024 , Expires: 06/29/2025 Start: 06-29-2024 End: 06-29-2024 Patient encounter procedure 06/29/2024 8:30 AM EDT Office Visit [facility] [address] [place] [phone] Robby Napier MD [address] [place] [address] [facility] Start: 11-01-2023 Medicare Advantage A nnual Wellness Visit Medicare Advantage Annual Wellness Visit [facility] Start: 07-02-2023 COVID-19 Vaccine ( season) COVID-19 Vaccine ( season) [facility] Start: 03-24-2023 FUVGENERAL, Provider : Dilcia Bobby, Status: Pen, Time: 9:30 AM FUVGENERAL, Provider: Dilcia Bobby, Status: Pen, Time: 9:30 AM WT-Iuvdeqrop-Yuyqlaxa w DO Work Phone: Start: 10-13-2022 Zoster Vaccines (3 of 3) Zoste r Vaccines (3 of 3) [facility] Start: 07-24-2022 Patient referral Wooste r [facility] Work Phone: Start: 02-16-2022 Referral to service Pacheco ster [facility] Work Phone: Start: 02-16-2022 Patient discharge Woost er [facility] Work Phone: Start: 02-16-2022 Referral to vascular surgeon [facility] Work Phone: Start: 02-15-2022 Following clinical pathway protocol [facility] Work Phone: Start: 02-15-2022 Application of intermittent pneumatic compression device [facility] Work Phone: Start: 02-15-2022 Assessment of risk o f venous thromboembolism [facility] Work Phone: Start: 02-15-2022 Cardiac monitoring [facility] Work Phone: Start: 02-15-2022 Catheterization of vein [facility] Work Phone: Start: 02-15-2022 Elevation of head of bed [facility] Work Phone: Start: 02-15-2022 Exercises [facility] Work Phone: Start: 02-15-[address] anned interventions [facility] Work Phone: Start: 02-15-2022 Incentive spirometry [facility] Work Phone: Start: 02-15-2022 Insertion of cathete r into peripheral vein [facility] Work Phone: Start: 02-15-2022 Measuring intake and output [facility] Work Phone: Start: 02-15-2022 Notification of physician [facility] Work Phone: Start: 02-15-2022 Oxygen therapy [facility] Work Phone: Start: 02-15-2022 Providing care accor ding to standard [facility] Work Phone: Start: 02-15-2022 Provision of activit y privileges [facility] Work Phone: Start: 02-15-2022 Referral to occupati onal therapist [facility] Work Phone: Start: 02-15-2022 Referral to service [facility] Work Phone: Start: 02-15-2022 Tobacco use cessatio n education [facility] Work Phone: Start: 02-15-2022 [facility] Work Phone: Start: 02-15-2022 Admission procedure [facility] Work Phone: Start: 07-02-2020 Influenza vaccination Flu vaccine (# 1) [place], [place] Start: 10-12-2019 End: 10-12-2019 Office Visit 10/12/2019 Office Visit Orthopedic Surgery Dima Dejesus MD [address] [id number] [facility] [place] Start: 07-10-2019 Annual Wellness Visi t (AWV) Annual Wellness Visit (AWV) [place], [place] Start: 07-02-2019 Influenza vaccination Flu vaccine (# 1) [place] Start: 04-06-2017 End: 04-06-2017 X-Ray, Hip, unilateral, with pelvis; 2-3 views X-Ray, Hip, unilateral, with pelvis; 2-3 views [facility] Work Phone: Start: 2017 RSV Immunization age d 60 or older (1 - 1-dose 60+ series) RSV Immunization aged 60 or older (1 - 1-dose 60+ series) [facility] Start: 2017 RSV Immunization for Adults (1 - Risk 60-74 years 1-dose series) RSV Immunization for Adults (1 - Risk 60-74 years 1-dose series) [facility] Start: 12-31-2016 End: 12-31-2016 Mri joint upr extrem w/o dye MRI Joint Upper Extremity [facility] Work Phone: Start: 10-01-2014 Shingles Vaccine (2 of 3) Bustamante gles Vaccine (2 of 3) [place], [place] Start: 2007 Breast cancer screen Breast cancer s creen [place], [place] Start: 2007 Colon cancer screen colonoscopy Colon cancer screen colonoscopy [place] Start: 2007 Screening for malign ant neoplasm of breast Breast cancer screen [place] Start: 2007 Screening for malign ant neoplasm of colon Colon cancer screen colonoscopy [place] Start: 1997 Diabetes screen Diabetes screen [place], [place] Start: 1997 Lipid panel Lipid screen [place], [place] Start: 1997 Lipid screen Lipid screen [place] Start: 1997 Screening for malign ant neoplasm of breast Mammogram [facility] Start: 1978 Cervical cancer screen Cervical canc er screen [place], [place] Start: 1978 Screening for malign ant neoplasm of cervix Cervical cancer screen [place] Start: 01-11-1976 DTaP/Tdap/Td vaccine (1 - Tdap) DTaP/Tdap/Td vaccine (1 - Tdap) [place] Start: 01-11-1976 DTaP/Tdap/Td Vaccine s (1 - Tdap) DTaP/Tdap/Td Vaccines (1 - Tdap) [facility] Start: 1975 Diabetes mellitus screening Diabetes Screening [facility] Start: 1975 Hepatitis C screening [facility] Start: 01-11-1972 HIV screen HIV screen [place], [place] Start: 01-11-1972 [facility] [place] [place] Start: 1969 Depression Monitoring Depression Mon [facility] Start: 1969 Depression Screening Depression Scre ening [facility] Start: 1957 Creatinine measurement Creatinine mo nitoring [place], [place] Start: 1957 Creatinine monitoring Creatinine mon [place], [place] Start: 1957 Hepatitis C screen Hepatitis C scree n [place] Start: 1957 Hepatitis C screening [facility] [place] Start: 1957 Lipid panel Lipid Panel [facility] Start: 1957 Potassium monitoring Potassium monit [place], [place] Start: 1957 Screening for malign ant neoplasm of colon [facility] Start: 1957 Screening for osteoporosis Bone Density Scan [facility] Start: 1957 Thyroid stimulating hormone measurement TSH Level [facility] Bil[facility]men t, [facility] Work Phone: Hemoglobin [Presence ] in Urine [facility] Work Phone: Measurement of keton es in urine using dipstick [facility] Work Phone: Microscopic urinalysis [facility] Work Phone: End: 07-26-2024 MR Brain WO and W contrast IV [facility] [employer] [facility] Work Phone: Comment on above: Once for 1 Occurrenc es starting 07/26/2024 until 07/26/2024 Patient Education [facility] Work Phone: Patient referral [facility] Work Phone: pH of Urine [facility] Work Phone: Specific gravity of Urine [facility] Work Phone: Urinalysis, blood, qualitative [facility] Work Phone: Urine dipstick for glucose [facility] Work Phone: Urine dipstick for leukocyte esterase [facility] Work Phone: Urine dipstick for nitrite [facility] Work Phone: Urine dipstick for protein [facility] Work Phone: Urine examination [facility] Work Phone: Urine microscopy: epithelial cells [facility] Work Phone: Urine Microscopy: wh ite cells [facility] Work Phone: Urobilinogen [Presen ce] in Urine [facility] Work Phone: Immunizations Immunization Date Immunization Notes Care Provider Fa [facility] 06-22-2025 pneumococcal 20-eh nt conjugate vaccine MARCIO SELF MD [facility] 07-22-2024 influenza virus vacc ine, unspecified formulation TRINIDAD ADDISLES LYNN [facility] 08-18-2022 zoster vaccine recombinant KE CROWDER MD [facility] Comment on above: Result Comment: Bustamante ashwini 08-12-2022 influenza, high dose seasonal, preservative-free KE CROWDER MD [facility] 08-12-2022 influenza virus vacc ine, unspecified formulation Robby Napier MD Work Phone: [facility] 08-11-2021 SARS-CoV-2 mRNA (tozinameran) vaccine MARCIO SELF MD [facility] 08-01-2021 influenza, high dose seasonal, preservative-free; Translations: [Fluad Quadrivalent PF ] MARCIO SELF MD [facility] 12-24-2020 SARS-CoV-2 mRNA (tozinameran) vaccine MARCIO SELF MD [facility] 12-03-2020 SARS-CoV-2 mRNA (tozinameran) vaccine MARCIO SELF MD [facility] 08-16-2020 influenza, injectabl e, quadrivalent, preservative free; Translations: [Fluarix PF Quadrivalent ] MARCIO SELF MD [facility] 05-08-2020 pneumococcal polysaccharide vaccine, 23 valent MARCIO SELF MD [facility] 05-08-[address] Fiore Work Phone: [facility] Work Phone: 08-10-2018 influenza virus vacc ine, unspecified formulation KE CROWDER MD [facility] 08-03-2018 influenza virus vacc ine, unspecified formulation KE CROWDER MD [facility] 07-13-2017 influenza virus vacc ine, unspecified formulation KE CROWDER MD [facility] 07-15-2016 influenza virus vacc ine, unspecified formulation KE CROWDER MD [facility] 09-01-2015 pneumococcal conjuga te vaccine, 13 valent MARCIO SELF MD [facility] 08-31-2015 pneumococcal conjuga te vaccine, 13 valent KE CROWDER MD [facility] 08-07-2015 influenza virus vacc ine, unspecified formulation KE CROWDER MD [facility] 10-05-2014 pneumococcal conjuga te vaccine, 13 vallauren CROWDER MD [facility] 08-06-2014 influenza virus vacc ine, unspecified formulation KE CROWDER MD [facility] 08-06-2014 zoster vaccine recombinant MARCIO SELF MD [facility] Comment on above: Result Comment: Hyun Higuera Hessmer 11-01-2005 pneumococcal polysaccharide vaccine, 23 valent MARCIO SELF MD [facility] influenza, seasonal, injectable Marcio Self Work Phone: OO-Lmurculac-Upragq iew DO Work Phone: Comment on above: Approx 24Jan2019 Ser ies: pneumococcal polysaccharide vaccine, 23 valent Marcio Self Work Phone: JG-Ghvhbsjrn-Diyetb iew DO Work Phone: Comment on above: Approx 24Jan2019 Ser ies: Payers Date Payer Category Payer Self-pay [id number] 2024 Private Health Insurance [id number] 2024 Medicaid [facility] [id number] 2024 Medicare HMO UHC DUAL COMPLET E [id number] 2024 Medicare [id number] 1.13.680.2. [id number] 2024 Unknown 2024 Private Health Insurance [id number] 2022 Medicaid [id number] 1.13.680.2. [id number] 2014 Medicare [id number]. [id number] 2014 Medicaid [id number] 1.2.840.899932.1.13.239.2. 7.3.242789.315 2014 Unknown [id number] 1988 Medicare [id number] 1.2.840.019112.1.13.239.2. 7.3.536178.315 1957 Unknown [id number] 2.16.840.1.204315.3.579.2. 356 1957 Unknown [id number] 2.16.840.1.705315.3.579.2. 356 1957 Unknown [id number] 2.16.840.1.484312.3.579.2. 479 1957 Unknown [id number] 2.16.840.1.000881.3.579.2. 62 1957 Unknown [id number] 2.16.840.1.033339.3.579.2. 627 1957 Unknown [id number] 2.16.840.1.119745.3.579.2. 627 1957 Unknown [id number] 2.16.840.1.165107.3.579.2. 627 1957 Unknown [id number] 2.16.840.1.728629.3.579.2. 627 1957 Unknown [id number] 2.16.840.1.279924.3.579.2. 627 1957 Unknown [id number] 2.16.840.1.208649.3.579.2. 627 1957 Unknown [id number] 2.16.840.1.670895.3.579.2. 627 1957 Unknown [id number] 2.16.840.1.665560.3.579.2. 1957 Unknown [id number] 2.16.840.1.101061.3.579.2. 1957 Unknown [id number] 2.16.840.1.961369.3.579.2 1957 Unknown [id number] 2.16.840.1.593774.3.579.2. 1957 Unknown [id number] 2.16.840.1.195298.3.579.2 1957 Unknown [id number] 2.16.840.1.668389.3.579.2 1957 Unknown [id number] 2.16.840.1.156369.3.579.2 1957 Unknown [id number] 2.16.840.1.152820.3.579.2 1957 Unknown [id number] 2.16.840.1.830994.3.579.2. 1957 Unknown [id number] 2.16.840.1.430644.3.579.2 1957 Unknown [id number] 2.16.840.1.441115.3.579.2. 1957 Unknown [id number] 2.16.840.1.906538.3.579.2. 1957 Unknown [id number] 2.16.840.1.235933.3.579.2. 1957 Unknown [id number] 2.16.840.1.166094.3.579.2. 1957 Unknown [id number] 2.16.840.1.014687.3.579.2 1957 Unknown [id number] ..840.1.406690.3.579.2. 627 1957 Unknown [id number] 2..840.1.426283.3.579.2. 627 Unknown [id number] 2..840.1.397016.3.579.2. 462 Unknown [id number] .840.1.967336.3.579.2. 462 Unknown [id number] .840.1.336137.3.579.2. 462 Unknown [id number] .840.1.647616.3.579.2. 462 Unknown [id number] 2.840.1.418797.3.579.2. 462 Unknown [id number] 2.840.1.321562.3.579.2. 462 Unknown [id number] .840.1.648114.3.579.2. 462 Unknown [id number] .840.1.783454.3.579.2. 462 Unknown [id number] 840.1.506129.3.579.2. 462 Unknown [id number] .840.1.484585.3.579.2. 462 Unknown [id number] 840.1.373446.3.579.2. 462 Unknown [id number] .840.1.667910.3.579.2. 462 Unknown [id number] .840.1.470215.3.579.2. 462 Unknown [id number] .840.1.600967.3.579.2. 462 Unknown [id number] .840.1.332148.3.579.2. 462 Unknown [id number] 2.840.1.752802.3.579.2. 462 Unknown [id number] 2.16.840.1.223082.3.579.2. 462 Unknown [id number] 2.16.840.1.537216.3.579.2. 462 Unknown [id number] 2.16.840.1.354255.3.579.2. 462 Unknown [id number] 2.16.840.1.718726.3.579.2. 462 Unknown [id number] 2.16.840.1.088370.3.579.2. 462 Unknown [id number] 2.16.840.1.820786.3.579.2. 462 Unknown [id number] 2.16.840.1.604454.3.579.2. 462 Unknown [id number] 2.16.840.1.236749.3.579.2. 462 Unknown [id number] 2.16.840.1.956168.3.579.2. 462 Unknown [id number] 2.16.840.1.641024.3.579.2. 462 Unknown [id number] 2.16.840.1.982502.3.579.2. 462 Unknown [id number] 2.16.840.1.205634.3.579.2. 462 Unknown [id number] 2.16.840.1.644220.3.579.2. 462 Unknown [id number] 2.16.840.1.594110.3.579.2. 462 Unknown [id number] 2.16.840.1.739835.3.579.2. 462 Unknown [id number] 2.16840.1.169982.3.579.2. 462 Unknown [id number] 2.16.840.1.133163.3.579.2. 462 Social History Date Type Detail Facility Start: 12-21-2019 End: 04-25-2025 Tobacco smoking status NHIS Never smoker [place] Start: 12-21-2019 [facility] Start: 12-21-2019 End: 06-26-2025 Alcohol intake [facility] Start: 07-20-2019 History SDOH Alcohol Frequency [facility] Start: 07-20-2019 History SDOH Alcohol Std Drinks 1 [facility] Start: 07-20-2019 Alcohol Comment [facility] Start: 1955 Sex Assigned At Not on file [facility] Start: 08-10-2019 End: 06-26-2025 [facility] intake Yes [facility] Start: 1955 Sex Assigned At Female A [facility] Start: 01-14-2022 End: 08-11-2022 Tobacco smoking status NHIS Unknown if ever smoked [facility] Work Phone: Start: 05-01-2020 None [facility] Work Phone: Start: 05-01-2020 Mcc [facility] Work Phone: Start: 10-09-2021 Non-smoker [facility] Work Phone: Start: 06-29-2024 End: 06-26-2025 Active advance directive Active advance directive AH-Jwbvmvieo-Ohafrlmk w DO Work Phone: Comment on above: 2 SODAS DAILY; Start: 04-26-2019 End: 06-01-2022 Sex Female (finding) [facility] Medical Equipment Procedure Code Equipment Code Equipment Origin al Text Equipment Identifier Dates ASYMMETRIC PATELLA FDA Start: 04-30-2020 TIBIAL COMPONENT FDA Start: 04-30-2020 TRIATHLON X3 TIBIAL FDA Start : 04-30-2020 triathlon crucia te retaining FDA Start: 04-30-2020 ASYMMETRIC PATELLA FDA Start: 03-11-2021 CEMENT,HV SIMPLEX FDA Start: 03-11-2021 CEMENT,HV SIMPLEX FDA Start: 03-11-2021 CRUCIATE RETAINI NG FEMORAL FDA Start: 03-11-2021 TIBIAL BASEPLATE FDA Start: 03-11-2021 TIBIAL BEARING INSERT - CS FDA Start: 03-11-2021 ASYMMETRIC PATELLA FDA Start: 04-30-2020 TIBIAL COMPONENT FDA Start: 04-30-2020 TRIATHLON X3 TIBIAL FDA Start : 04-30-2020 triathlon crucia te retaining FDA Start: 04-30-2020 ASYMMETRIC PATELLA FDA Start: 03-11-2021 CEMENT,HV SIMPLEX FDA Start: 03-11-2021 CEMENT,HV SIMPLEX FDA Start: 03-11-2021 CRUCIATE RETAINI NG FEMORAL FDA Start: 03-11-2021 TIBIAL BASEPLATE FDA Start: 03-11-2021 TIBIAL BEARING INSERT - CS FDA Start: 03-11-2021 ASYMMETRIC PATELLA FDA Start: 04-30-2020 TIBIAL COMPONENT FDA Start: 04-30-2020 TRIATHLON X3 TIBIAL FDA Start : 04-30-2020 triathlon crucia te retaining FDA Start: 04-30-2020 ASYMMETRIC PATELLA FDA Start: 03-11-2021 CEMENT,HV SIMPLEX FDA Start: 03-11-2021 CEMENT,HV SIMPLEX FDA Start: 03-11-2021 CRUCIATE RETAINI NG FEMORAL FDA Start: 03-11-2021 TIBIAL BASEPLATE FDA Start: 03-11-2021 TIBIAL BEARING INSERT - CS FDA Start: 03-11-2021 ASYMMETRIC PATELLA FDA Start: 04-30-2020 TIBIAL COMPONENT FDA Start: 04-30-2020 TRIATHLON X3 TIBIAL FDA Start : 04-30-2020 triathlon crucia te retaining FDA Start: 04-30-2020 ASYMMETRIC PATELLA FDA Start: 03-11-2021 CEMENT,HV SIMPLEX FDA Start: 03-11-2021 CEMENT,HV SIMPLEX FDA Start: 03-11-2021 CRUCIATE RETAINI NG FEMORAL FDA Start: 03-11-2021 TIBIAL BASEPLATE FDA Start: 03-11-2021 TIBIAL BEARING INSERT - CS FDA Start: 03-11-2021 ASYMMETRIC PATELLA FDA Start: 04-30-2020 TIBIAL COMPONENT FDA Start: 04-30-2020 TRIATHLON X3 TIBIAL FDA Start : 04-30-2020 triathlon crucia te retaining FDA Start: 04-30-2020 ASYMMETRIC PATELLA FDA Start: 03-11-2021 CEMENT,HV SIMPLEX FDA Start: 03-11-2021 CEMENT,HV SIMPLEX FDA Start: 03-11-2021 CRUCIATE RETAINI NG FEMORAL FDA Start: 03-11-2021 TIBIAL BASEPLATE FDA Start: 03-11-2021 TIBIAL BEARING INSERT - CS FDA Start: 03-11-2021 ASYMMETRIC PATELLA FDA Start: 04-30-2020 TIBIAL COMPONENT FDA Start: 04-30-2020 TRIATHLON X3 TIBIAL FDA Start : 04-30-2020 triathlon crucia te retaining FDA Start: 04-30-2020 ASYMMETRIC PATELLA FDA Start: 03-11-2021 CEMENT,HV SIMPLEX FDA Start: 03-11-2021 CEMENT,HV SIMPLEX FDA Start: 03-11-2021 CRUCIATE RETAINI NG FEMORAL FDA Start: 03-11-2021 TIBIAL BASEPLATE FDA Start: 03-11-2021 TIBIAL BEARING INSERT - CS FDA Start: 03-11-2021 ASYMMETRIC PATELLA FDA Start: 04-30-2020 TIBIAL COMPONENT FDA Start: 04-30-2020 TRIATHLON X3 TIBIAL FDA Start : 04-30-2020 triathlon crucia te retaining FDA Start: 04-30-2020 ASYMMETRIC PATELLA FDA Start: 03-11-2021 CEMENT,HV SIMPLEX FDA Start: 03-11-2021 CEMENT,HV SIMPLEX FDA Start: 03-11-2021 CRUCIATE RETAINI NG FEMORAL FDA Start: 03-11-2021 TIBIAL BASEPLATE FDA Start: 03-11-2021 TIBIAL BEARING INSERT - CS FDA Start: 03-11-2021 ASYMMETRIC PATELLA FDA Start: 04-30-2020 TIBIAL COMPONENT FDA Start: 04-30-2020 TRIATHLON X3 TIBIAL FDA Start : 04-30-2020 triathlon crucia te retaining FDA Start: 04-30-2020 ASYMMETRIC PATELLA FDA Start: 03-11-2021 CEMENT,HV SIMPLEX FDA Start: 03-11-2021 CEMENT,HV SIMPLEX FDA Start: 03-11-2021 CRUCIATE RETAINI NG FEMORAL FDA Start: 03-11-2021 TIBIAL BASEPLATE FDA Start: 03-11-2021 TIBIAL BEARING INSERT - CS FDA Start: 03-11-2021 Goals Date Patient Goal Desired Activity /State Functional Status Date Assessment Result Facility 10-20-2024 Functional Status Up ad [facility] 10-20-2024 Functional Status Ambulation in [facility] 07-20-2024 Functional Status Independent [facility] 09-20-2023 Functional Status Awake [facility] 08-13-2023 Functional Status OBJECTIVE Vitals: BP 119/72 Posture: slouched position, lazy sitting with kyphotic spine Gait: amb with 4WW, slow pace, forward trunk Transfers: marked use of UEs for sit to stand and rock forward Sensation: no abnormalities with light touch grossly Reflexes: hyper on R patellar, normal L 5x STS: 23 seconds marked use of hands The Activities-specific Balance Confidence (ABC) Scale: 30% confidence [facility] 04-29-2022 Functional Status Objective: Observation: Excess thoracic kyphosis, There is min to mod anterior knee effusion bilaterally. No excess bruising redness or warmth noted. No obvious muscle or pateller abnormalities. Able to extend knee without significant pain. Sensation: Grossly intact and symmetrical to bilat LE's Balance: Step touch able to perform 4 with min assist and use of gait belt, Modified tandem balance, 20 seconds, SLS: unable to perform Functional strength: sit to stand: relies heavily on UE assist. Requires several attempts at times. Cardiovascular screen: 100/60, HR: 72 O2 sat: 97% TU seconds Gait: Ambulates with rollater walker with excess thoracic kyphosis. Has some ankle braces. [facility] 04-15-2022 Functional Status Assistive Device Walker [facility] 04-15-2022 Functional Status Standard Safet y ID band on, Call device within reach, Bed in low position, Wheels locked, Upper/Half-Length side-rails up, Bedside Cart Locked, Safety level maintained [facility] 02-16-2022 Functional status Ambulates [facility] Work Phone: 02-06-2022 Functional Status OBJECTIVE Vitals: BP 163/96 - pt reports BP has been higher at times. pt educated on notifying PCP. Gait: amb with 4WW, lateral sway, small step length, with forward posture and kyphotic posture Transfers: marked use of UEs and reports pain in back Sensation: no abnormalties or asymmetries at time of eval Reflexes: NT Palpation: NT Edema: swelling at right eyebrow as pt reports is improving since fall AROM: WFL Vestib screen: pt denies spinning Spontaneous Nystagmus: neg End-range Nystagmus: neg Smooth Pursuits = neg Convergence = neg Divergence: neg Saccades/Skew Eye Deviation: neg Head Thrust Test/Head Impulse Test: unabke to perform due to muscular guarding 5x STS: 34 seconds - fall risk Tandem stance: unable to perform without UE support [facility] Mental Status Date Assessment Result Facility 10-20-2024 Mental Status Orientation Oriented x 4 [facility] 10-20-2024 Mental Status [facility] 07-20-2024 Mental Status Orientation Oriented x 4 [facility] 09-20-2023 Mental Status Orientation Oriented x 4 [facility] 04-16-2022 Cognitive function Level Of Cons ciousness Awake;Alert;Appropriate;Follow s [facility] Work Phone: 04-16-2022 Cognitive function Level Of Cons ciousness Awake;Alert;Appropriate;Follow s [facility] Work Phone: 04-15-2022 Mental Status Orientation Oriented x 4 [facility] 02-16-2022 Cognitive function Voice/Name [facility] Work Phone: Clinical Notes 01-15-2022 to 09-06-2025 Note Date & Type Note Facility 09-06-2025 Note [facility] 08-28-2025 Note Exam Date Time Procedure Performing Provider Status 08/28/25 1:17 PM Echocardiogram, Adult - CV SARINA SALINAS MD; Auth (Verified) [facility]08-26-2025 History of Present illness Narrative * Robby Napier MD - 06/26/2025 2:40 PM EDT Images from the original note were not included. [facility] [address] [place] [address] [facility] [address] Dept: [phone] Dept Loc: [phone] Robby Napier MD CHIEF COMPLAINT: Chief Complaint Patient presents with Follow-up Abnl Movement HISTORY OF PRESENT ILLNESS: The patient is a 70 y.o. person who returns with abnormal movements. She reports that she is have some improvement in movements with the tetrabenazine, but not complete control She has spasm in the upper and lower legs. She will see fasciculations under the skin. She finds pickle juice helps. She reports that she has developed pain in her neck and headaches. They had improved, but she has to wear a brace with a strap around her neck after left shoulder surgery and now she is having pain from the neck up to her occiput of her head and photo-sensitive headaches. She reports that this was associated with trouble with her left shoulder. Tizanidine helps. Back of her neck and refers to occiput and vertex. 16 headache days per month. She tried rizatriptan and "sounded drunk." Sumatriptan does not do that. Qulipta made her nauseous. She reports that theNurtec made her headache worse and the blepharospasm. She reports that she was placed on Fioricet by Dr. Self and that somewhat helps. Is the DURAN longer than four hours? Yes (Migraine) Photophobia? Yes (Migraine) Phonophobia? Yes (Migraine) Nausea/Vomiting? No (Migraine) Exacerbated by Movement? No She reports that her insurance does not want to pay for the Fioricet from Dr. Self. Past Medical History: has a past medical history of Anxiety, Asthma, Bipolar 1 disorder ([facility]), Bipolar depression (CMS/HCC) ([facility]), Cerebral palsy ([facility]), Cervical spine degeneration, COPD (chronic obstructive pulmonary disease) ([facility]), Dysphasia, Gait abnormality, GERD (gastroesophageal reflux disease), Hypercholesteremia, Hyperreflexia, Hypoglycemia, Hypothyroidism, IBS (irritable bowel syndrome), Myalgia, Myositis, Rhinitis, and Urinary incontinence. Past Surgical History: has a past surgical history that includes Leg Surgery; Carpal tunnel release (Left); Shoulder surgery; Nasal septum surgery; Appendectomy; and Cholecystectomy. Medications: Current Outpatient Medications: Acetaminophen (TYLENOL 8 HOUR PO), Take by mouth., Disp: , Rfl: albuterol (2.5 MG/3ML) 0.083% nebulizer solution, , Disp: , Rfl: albuterol 108 (90 Base) MCG/ACT inhaler, Inhale 2 puffs every 6 hours as needed for wheezing., Disp: , Rfl: ammonium lactate (Amlactin) 12 % cream, APPLY TO ELBOWS ONCE A DAY, Disp: , Rfl: aspirin 81 MG EC tablet, Take 1 tablet by mouth daily., Disp: , Rfl: BUDESONIDE IN, Inhale., Disp: , Rfl: Calcium Carbonate-Vitamin D 500-5 MG-MCG tablet, Take by mouth., Disp: , Rfl: carboxymethylcellulose (Artificial Tears) 1 % ophthalmic solution, 1 drop 3 times daily., Disp: , Rfl: cetirizine (ZyrTEC) 10 MG tablet, Take by mouth., Disp: , Rfl: clopidogrel (Plavix) 75 MG tablet, Take by mouth daily., Disp: , Rfl: Cyanocobalamin (B-12) 1000 MCG sublingual tablet, Place under the tongue., Disp: , Rfl: diazePAM (Valium) 10 MG tablet, Take 1 tablet (10 mg) by mouth Once for 1 dose. 2 hours prior to the MRI, Disp: 1 tablet, Rfl: 0 Diclofenac Sodium (Voltaren) 1 % gel, Apply topically 2 times daily., Disp: , Rfl: ferrous sulfate 325 (65 Fe) MG tablet, Take 325 mg by mouth daily (with breakfast)., Disp: , Rfl: fluticasone (Flonase) 50 MCG/ACT nasal spray, Administer 1 spray into each nostril daily. Shake gently. Before first use, prime pump. After use, clean tip and replace cap., Disp: , Rfl: FORMOTEROL FUMARATE IN, Inhale., Disp: , Rfl: gabapentin (Neurontin) 400 MG capsule, Take 400 mg by mouth 3 times daily., Disp: , Rfl: HYDROcodone-acetaminophen ([place]) 5-325 MG tablet, , Disp: , Rfl: hydrocortisone 2.5 % cream, Apply topically 2 times daily., Disp: , Rfl: hydrOXYzine HCl (Atarax) 25 MG tablet, Take by mouth., Disp: , Rfl: ibandronate (Boniva) 150 MG tablet, Take 150 mg by mouth every 30 (thirty) days. Take in morning with full glass of water on an empty stomach. No food, drink, meds, or lying down for 60 minutes after., Disp: , Rfl: lactase (Lactaid) 3000 units tablet, Take 3,000 Units by mouth in the morning and 3,000 Units at noon and 3,000 Units in the evening. Take with meals., Disp: , Rfl: lamoTRIgine (LAMICTAL PO), Take 100 mg by mouth Nightly., Disp: , Rfl: lamoTRIgine (LaMICtal) 200 MG tablet, Take 200 mg by mouth 2 times daily., Disp: , Rfl: levothyroxine (Synthroid, Levoxyl) 75 MCG tablet, Take by mouth every morning (before breakfast)., Disp: , Rfl: losartan (Cozaar) 25 MG tablet, Take by mouth., Disp: , Rfl: magnesium oxide (Mag-Ox) 400 mg tablet, 400 mg daily., Disp: , Rfl: meclizine (Antivert) 12.5 MG tablet, Take 12.5 mg by mouth 3 times daily as needed for dizziness., Disp: , Rfl: Multiple Vitamin (multivitamin) capsule, Take 1 capsule by mouth daily., Disp: , Rfl: Multiple Vitamins-Minerals (PRESERVISION AREDS PO), Take by mouth., Disp: , Rfl: nystatin (Mycostatin) 939705 UNIT/GM powder, Apply topically 2 times daily., Disp: , Rfl: polycarbophil (Fiber-Lax) 625 MG tablet, Take by mouth daily., Disp: , Rfl: polyethylene glycol, PEG, 3350 (Miralax) 17 g packet, Take by mouth., Disp: , Rfl: prednisoLONE sodium phosphate (Inflamase Forte) 1 % ophthalmic solution, 1 drop in the morning and 1 drop at noon and 1 drop in the evening and 1 drop before bedtime., Disp: , Rfl: promethazine (Phenergan) 25 MG tablet, Take by mouth., Disp: , Rfl: RABEprazole (Aciphex) 20 MG EC tablet, Take by mouth. Do not crush, chew, or split., Disp: , Rfl: rosuvastatin (Crestor) 5 MG tablet, Take 5 mg by mouth daily., Disp: , Rfl: sucralfate (Carafate) 1 g tablet, Take by mouth 4 times daily (before meals and nightly)., Disp: , Rfl: tiZANidine (Zanaflex) 4 MG capsule, Take 4 mg by mouth 3 times daily., Disp: , Rfl: triamcinolone (Kenalog) 0.1 % cream, Apply topically 2 times daily., Disp: , Rfl: VITAMIN D PO, Take by mouth., Disp: , Rfl: qcdekqnbqr-jjtpadiouynnv-fveigxuy 50-325-40 MG tablet, Take 1 tablet by mouth every 12 hours as needed for migraine., Disp: 45 tablet, Rfl: 2 SUMAtriptan (Imitrex) 25 MG tablet, Take 1 tablet (25 mg) by mouth Once as needed for migraine (mayrepeat x1) for up to 1 dose. May repeat dose once in 2 hours if no relief. Do not exceed 2 doses in24 hours., Disp: 9 tablet, Rfl: 5 tetrabenazine (Xenazine) 25 MG tablet, Take 1 tablet (25 mg) by mouth 2 times daily., Disp: 180 tablet, Rfl: 3 tiZANidine (Zanaflex) 2 MG tablet, Take 1 tablet (2 mg) by mouth every 8 hours as needed for musclespasms. (Patient not taking: Reported on 06/26/2025), Disp: 90 tablet, Rfl: 2 Allergies: Baclofen; Ciclesonide; Erythromycin; Fentanyl; Imipramine; Lubiprostone; Ondansetron; Oxycodone; Oxymorphone; Pregabalin; Topiramate; Aspartame; Levofloxacin; Onabotulinumtoxina; Penicillins; Antihistamines, chlorpheniramine-type; Ascorbic acid; Botulinum toxin type a; Bupropion; Buspirone; Capsaicin; Carbamazepine; Cat dander; Celecoxib; Dog epithelium (canis lupus familiaris); Duloxetine; Dust mite extract; Erythromycin base; Fluvoxamine; Gabapentin; Horse protein; Ibuprofen; Iron polysaccharide; Lurasidone; Nsaids; Nurtec [rimegepant sulfate]; Propantheline; Pseudoephedrine; Qulipta [atogepant]; Saccharin; Sulfamethoxazole-trimethoprim; Tetracycline; Trimethoprim; Venlafaxine;Venlafaxine hcl; Wound dressing adhesive; Ziprasidone; Cefaclor; Cephalexin; Ciprofloxacin; Codeine; Daucus carota; Diphenhydramine; Dog epithelium; Doxepin; Hydromorphone; Candor; Molds & smuts; Onabotulinumtoxina (cosmetic); Pollen extract; Sertraline; and Sulfa antibiotics Social History: Social History Socioeconomic History Marital status: Single Spouse name: Not on file Number of children: Not on file Years of education: Not on file Highest education level: Not on file Occupational History Not on file Tobacco Use Smoking status: Never Smokeless tobacco: Never Vaping Use Vaping status: Never Used Substance and Sexual Activity Alcohol use: Yes Drug use: Not Currently Sexual activity: Not Currently Other Topics Concern Not on file Social History Narrative Not on file Social Drivers of Health Financial Resource Strain: Not on file Food Insecurity: Not on file Transportation Needs: Not on file Physical Activity: Not on file Stress: Not on file Social Connections: Not on file Intimate Partner Violence: Not on file Housing Stability: Not on file Family History: Family History Problem Relation Name Age of Onset Alcohol abuse Mother Heart disease Sister Bipolar disorder Mother Stroke Sister Cancer Brother Emphysema Father REVIEW OF SYSTEMS: Review of Systems Constitutional: Negative for appetite change, chills, diaphoresis, fever and unexpected weight change. HENT: Negative for dental problem and mouth sores. Eyes: Negative for discharge and itching. Respiratory: Negative for chest tightness. Cardiovascular: Negative for chest pain and leg swelling. Gastrointestinal: Negative for rectal pain and vomiting. Endocrine: Negative for polydipsia, polyphagia and polyuria. Genitourinary: Negative for decreased urine volume, flank pain and genital sores. Musculoskeletal: Positive for neck pain. Negative for arthralgias. Skin: Negative for color change. Allergic/Immunologic: Negative for food allergies and immunocompromised state. Neurological: Positive for headaches. Abnormal movements Gait disorder Hematological: Negative for adenopathy. Does not bruise/bleed easily. Psychiatric/Behavioral: Negative for agitation, behavioral problems, decreased concentration, sleepdisturbance and suicidal ideas. PHYSICAL EXAM: Vitals: BP 139/69 (BP Location: Right arm, Patient Position: Sitting, BP Cuff Size: Adult) Pulse 67 Ht 5' 2" (1.575 m) Wt 190 lb (86.2 kg) BMI 34.75 kg/m General Appearance: Patient is in no apparent distress. Head is normocephalic, atraumatic Cardiovascular: Regular rate and rhythm. No heart murmurs. No carotid bruit Neurologic: Mentation: Alert and oriented x 3 to person, place and time. Speech and Language: Speech and language normal Concentration and Attention: Concentration normal Memory: Memory grossly normal Fund of Knowledge: Fund of knowledge normal Cranial Nerves: II, III, IV, V, , VII, VIII, IX, X, XI, XII tested and were examined including fundoscopic exam (optic discs) and visual field to confrontation. She still has eye closure. It looks more involuntary today. Motor: Strength:5/5 in the arms/hands and proximal legs Alternating Movements: Normal Cogwheel Rigidity: None Tone: Tone is normal Tremor / Involuntary Movements: There are dystonic movements of the right arm/torso, but not as badas prior exams. Deep Tendon Reflexes: 1 out of 4 symmetrical in all four limbs. Sensory: Normal sensation upper and lower extremities Coordination: Movements of the right leg turning in and the jerking of the limbs as well. DATA EEG extended more than 1 hour Robby Napier MD 08/15/2024 6:03 PM EEG REPORT Patient Name: Steve Fagan : 1955 PROVIDER REQUESTING STUDY: Dr. Napier REASON FOR EXAM: syncope and collapse HISTORY: Steve Fagan is a 69 y.o. with history of syncope and collapse MEDICATIONS: Current Outpatient Medications: Acetaminophen (TYLENOL 8 HOUR PO), Take by mouth., Disp: , Rfl: albuterol (2.5 MG/3ML) 0.083% nebulizer solution, , Disp: , Rfl: ammonium lactate (Amlactin) 12 % cream, APPLY TO ELBOWS ONCE A DAY, Disp: , Rfl: aspirin 81 MG EC tablet, Take 1 tablet by mouth daily., Disp: , Rfl: Atogepant (Qulipta) 30 MG tablet, Take 1 tablet by mouth daily., Disp: 90 tablet, Rfl: 3 BUDESONIDE IN, Inhale., Disp: , Rfl: Calcium Carbonate-Vitamin D 500-5 MG-MCG tablet, Take by mouth., Disp: , Rfl: carboxymethylcellulose (Artificial Tears) 1 % ophthalmic solution, 1 drop 3 times daily., Disp: , Rfl: cetirizine (ZyrTEC) 10 MG tablet, Take by mouth., Disp: , Rfl: clopidogrel (Plavix) 75 MG tablet, Take by mouth daily., Disp: , Rfl: Cyanocobalamin (B-12) 1000 MCG sublingual tablet, Place under the tongue., Disp: , Rfl: Deutetrabenazine ER (Austedo XR) 30 MG tablet sustained-release 24 hour, Take 1 tablet by mouth every morning. Do not start before July 27, 2024., Disp: 90 tablet, Rfl: 2 Deutetrabenazine ER (Austedo XR) 30 MG tablet sustained-release 24 hour, Take 1 tablet by mouth daily., Disp: 30 tablet, Rfl: 11 diazePAM (Valium) 10 MG tablet, Take 1 tablet (10 mg) by mouth Once for 1 dose. 2 hours prior to the MRI, Disp: 1 tablet, Rfl: 0 Diclofenac Sodium (Voltaren) 1 % gel, Apply topically 2 times daily., Disp: , Rfl: ferrous sulfate 325 (65 Fe) MG tablet, Take 325 mg by mouth daily (with breakfast)., Disp: , Rfl: fluticasone (Flonase) 50 MCG/ACT nasal spray, Administer 1 spray into each nostril daily. Shake gently. Before first use, prime pump. After use, clean tip and replace cap., Disp: , Rfl: FORMOTEROL FUMARATE IN, Inhale., Disp: , Rfl: gabapentin (Neurontin) 400 MG capsule, Take 400 mg by mouth 3 times daily., Disp: , Rfl: HYDROcodone-acetaminophen ([place]) 5-325 MG tablet, , Disp: , Rfl: hydrocortisone 2.5 % cream, Apply topically 2 times daily., Disp: , Rfl: hydrOXYzine HCl (Atarax) 25 MG tablet, Take by mouth., Disp: , Rfl: ibandronate (Boniva) 150 MG tablet, Take 150 mg by mouth every 30 (thirty) days. Take in morning with full glass of water on an empty stomach. No food, drink, meds, or lying down for 60 minutes after., Disp: , Rfl: lactase (Lactaid) 3000 units tablet, Take 3,000 Units by mouth in the morning and 3,000 Units at noon and 3,000 Units in the evening. Take with meals., Disp: , Rfl: lamoTRIgine (LAMICTAL PO), Take 300 mg by mouth daily., Disp: , Rfl: lamoTRIgine (LaMICtal) 200 MG tablet, Take 200 mg by mouth 2 times daily., Disp: , Rfl: levothyroxine (Synthroid, Levoxyl) 75 MCG tablet, Take by mouth every morning (before breakfast)., Disp: , Rfl: losartan (Cozaar) 25 MG tablet, Take by mouth., Disp: , Rfl: magnesium oxide (Mag-Ox) 400 mg tablet, 400 mg daily., Disp: , Rfl: meclizine (Antivert) 12.5 MG tablet, Take 12.5 mg by mouth 3 times daily as needed for dizziness., Disp: , Rfl: Multiple Vitamin (multivitamin) capsule, Take 1 capsule by mouth daily., Disp: , Rfl: nystatin (Mycostatin) 654636 UNIT/GM powder, Apply topically 2 times daily., Disp: , Rfl: polycarbophil (Fiber-Lax) 625 MG tablet, Take by mouth daily., Disp: , Rfl: polyethylene glycol, PEG, 3350 (Miralax) 17 g packet, Take by mouth., Disp: , Rfl: prednisoLONE sodium phosphate (Inflamase Forte) 1 % ophthalmic solution, 1 drop in the morning and 1 drop at noon and 1 drop in the evening and 1 drop before bedtime., Disp: , Rfl: promethazine (Phenergan) 25 MG tablet, Take by mouth., Disp: , Rfl: RABEprazole (Aciphex) 20 MG EC tablet, Take by mouth. Do not crush, chew, or split., Disp: , Rfl: rosuvastatin (Crestor) 5 MG tablet, Take 5 mg by mouth daily., Disp: , Rfl: sucralfate (Carafate) 1 g tablet, Take by mouth 4 times daily (before meals and nightly)., Disp: , Rfl: tiZANidine (Zanaflex) 4 MG capsule, Take 4 mg by mouth 3 times daily., Disp: , Rfl: tiZANidine (Zanaflex) 6 MG capsule, Take by mouth 3 times daily., Disp: , Rfl: triamcinolone (Kenalog) 0.1 % cream, Apply topically 2 times daily., Disp: , Rfl: valbenazine tosylate (Ingrezza) 40 MG capsule, Take 1 capsule (40 mg) by mouth daily., Disp: 90 capsule, Rfl: 1 VITAMIN D PO, Take by mouth., Disp: , Rfl: TECHNICAL ASPECTS: This routine scalp EEG study without video was carried out. Scalp electrodes were positioned in person by an x ray technologist, following patient education, according to the 10-20 International system of electrode placement and maintained for integrity and quality of the recording. EEG data with video was recorded continuously and digitally stored. The x ray technologist reviewed all automated detections and manual events and prepared the data for archiving and provider review. Referential and bipolar montages were used for review. The recording lasted for over 61.5 minutes. TECHNOLOGIST NOTES: There was no history of skull defect. BACKGROUND ACTIVITY: Posterior background activity: A continuous organized and well-modulated 7 Hz rhythm was seen symmetrically over the posterior head regions bilaterally. Beta range: Fronto-centrally predominant beta range activity (15-25 Hz, 10-20 uV) was seen. Sleep: N2 sleep was reached as evidenced by the appearance of vertex waves and sleep spindles seen symmetrically over the central head regions bilaterally. Normal Variants: No normal variants were identified. SLOWING: Her waking background rhythm was never more than 7 Hz INTERICTAL EPILEPTIFORM ACTIVITY: No epileptiform activity was seen. ICTAL ACTIVITY: No ictal activity was seen. NON-EPILEPTIC EVENTS: There was movement, talking, and sweat artifacts during the recording. IMPRESSION: This is a mildly abnormal awake and sleep EEG. Her waking background rhythm is mildly slower than normal. 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 FINDINGS: Acute findings: No recent infarct, intracranial hemorrhage, or extra-axial fluid collection. Mass: None. No abnormal brain parenchymal or leptomeningeal enhancement. Parenchyma/White Matter: No evidence for atrophy of the caudate nucleus is noted. Scattered patchy and beginning-confluent foci of nonspecific T2/FLAIR hyperintensity in the supratentorial white matter, most likely secondary to chronic small vessel ischemic disease. Ventricles and sulci: Moderate generalized brain parenchymal volume loss with proportionate ventricular enlargement. Skull base: Normal size and morphology of the pituitary gland. No suprasellar mass. Normal positionof the cerebellar tonsils. Vessels: The major intracranial flow voids are preserved. Extracranial structures: Normal orbits. No extracranial soft tissue abnormalities. Sinuses/mastoids: Clear Bones: No pathologic marrow infiltration. IMPRESSION: 1. No acute intracranial abnormalities. No enhancing lesions. 2. Generalized brain parenchymal volume loss and moderate chronic microvascular ischemic changes inthe supratentorial white matter. Report Dictated on Electronically Signed By: Navarro Epps MD Electronically Signed Date/Time: 07/28/2024 10:57 AM EDT ASSESSMENT AND PLAN: Diagnosis Plan 1. Tardive dyskinesia tetrabenazine (Xenazine) 25 MG tablet External referral to Neurology 2. Migraine without aura and without status migrainosus, not intractable SUMAtriptan (Imitrex) 25 MG tablet ccnshxzviu-tzpmnhsdsrpzg-dcpaaolg 50-325-40 MG tablet She has tried and failed trihexyphenidyl and Ingrezza and she is worse. Her insurance will not cover the Austedo. Will continue the tetrabenazine and increase the dose to 50 mg BID. Referral to movement disorders neurologist for further. She is to use sumatriptan prn or if necessary Fioricet. I spent 30 minutes caring for this patient today, reviewing labs and records, seeing the patient, documenting in the record and arranging for studies. documented in this [facility]08-26-2025 Miscellaneous Notes* Addendum Note - Robby Napier MD - 06/26/2025 2:40 PM EDTAddended by: ROBBY NAPIER on: 06/26/2025 03:23 PM Modules accepted: Orders documented in this [facility]08-26-2025 Note* Addendum Note - Robby Napier MD - 06/26/2025 2:40 PM EDTAddended by: ROBBY NAPIER on: 06/26/2025 03:23 PM Modules accepted: [id number]* Addendum Note - Robby Napier MD - 06/26/2025 2:40 PM EDTAddended by: ROBBY NAPIER on: 06/26/2025 03:23 PM Modules accepted: [id number] Note. MICRO - Microbiology PROCEDURE: Urine Culture [*1] SOURCE: Urine, Clean Catch BODY SITE: COLLECTED DATE/TIME: 04/25/2025 14:11 EDT RECEIVED DATE/TIME: 04/25/2025 21:29 EDT START DATE/TIME: 04/25/2025 21:29 EDT FREE TEXT SOURCE: FINAL REPORTS Final Report [] Verified Date/Time/Personnel: 04/27/2025 07:41 EDT 10,000 - 50,000 cfu/ml Multiple bacterial morphotypes present. Probable Contamination. Suggest recollection if clinically indicated. PRELIMINARY REPORTS Preliminary Report [] Verified Date/Time/Personnel: 04/26/2025 10:27 EDT No growth to date Preliminary Report [] Verified Date/Time/Personnel: 04/25/2025 23:00 EDT Specimen received in lab. 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 Awaiting response. [facility] of Austedo XR 30 mg on 04/25. Patient said she had symptoms in her arms during her 3rd week of Austedo XR 30 mg. She feels betteron Austedo than without (she has not been on medication since 04/19). 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 Awaiting response. [facility] delivering free 30 day trial of Austedo XR 30 mg on 04/25. Patient said she had symptoms in her arms during her 3rd week of Austedo XR 30 mg. She feels betteron Austedo than without (she has not been on medication since 04/19). If we get approval through insurance, we may want to consider a higher dose, * Addendum Note - Robby Napier MD - 04/20/2025 4:34 PM EDTAddended by: ROBBY NAPIER on: 04/20/2025 04:34 PM Modules accepted: Orders * Telephone Encounter - Robby Napier MD - 04/20/2025 4:16 PM EDT We never received a denial letter for regular Austedo. We were told that Austedo XR at 30 mg was denied but not regular release Austedo. In fact, Austedo is on the [employer] Formulary on page67. I will try to get her tetrabenazine. Tardive dyskinesia is off label for tetrabenazine, so her insurance will probably reject the tetrabenazine now. * Telephone Encounter - Sophy Ayala MA - 04/20/2025 2:13 PM EDT Cher stated that the Austedo is not covered by patients insurance. Cher stated that tertbenazine. Lizasking if Dr Napier would like patient to try tertbenazine and if so to please send a prescription to [facility]. * Telephone Encounter - Ramona Monae - 04/20/2025 2:09 PM EDT Message released to patient as written. Patient's further questions if applicable: Cher called back and I was told by backline that I could relay message "The Austedo 6 mg and Austedo 9 mg Rx was sent on 04/17 twith instructions to the pharmacist saying, "This is to start after she completes the Austedo XR titration pack given on 03/22/25." [facility] by [facility]:E-Prescribing Status: Receipt confirmed by pharmacy (03/27/2025 5:36 PM EDT). The sig of the scripts explains that she is to take a 6 mg and a 9 mg pill together BID. This is not the XR version, so she has to take them BID. If they do not have those tabs, they need to ask [facility] what is going on. " Cher stated that the Austedo is not covered by patients insurance. Cher stated that tertbenazine. Lizasking if Dr Napier would like patient to try tertbenazine and if so to please send a prescription to [facility]. Please advise. Were all questions from office addressed or relayed to the patient from encounter: Yes * Telephone Encounter - Sophy Ayala MA - 04/20/2025 1:59 PM EDT Lm for Cher to call the office back, please relay providers message. * Telephone Encounter - Robby Napier MD - 04/20/2025 1:46 PM EDT The Austedo 6 mg and Austedo 9 mg Rx was sent on 04/17 twith instructions to the pharmacist saying,"This is to start after she completes the Austedo XR titration pack given on 03/22/25." It was received by [facility]:E- Prescribing Status: Receipt confirmed by pharmacy (03/27/2025 5:36 PM EDT). The sig of the scripts explains that she is to take a 6 mg and a 9 mg pill together BID. This is not the XR version, so she has to take them BID. If they do not have those tabs, they need to ask [facility] what is going on. * Telephone Encounter - Heidi Tinsley - 04/20/2025 1:28 PM EDT Name of caller: Cher Contact phone number: [phone] Relationship to Patient: [facility] Provider: Dr Napier Practice: [facility] Chief Complaint/Reason for Call: Cher called in regarding medication management. States that patientis now completely out of Austedo sample packs office had supplied. Please advise. Best time of day caller can be reached: any Patient advised that office/PCP has 24-48 business hours to return their call: Yes * Telephone Encounter - Brit Luevano - 04/19/2025 4:06 PM EDT [facility]. While talking to patient she states her last sample of the Austedo XR is tonight and wont have anything for Wednesday. Per pt also she states Austedo XR not doing anything different then Ingrezza. She is willing to try the Tetrabenazine that insurance is requiring if Dr Napier wants or will do whatever he thinks is appropriate. * Telephone Encounter - Madelin Mcpherson - 04/19/2025 4:05 PM EDT Name of caller: Sonia Contact phone number: [phone] Relationship to Patient: [facility] Provider: Dr. Napier Practice: [facility] [place] Chief Complaint/Reason for Call: Sonia states she would like the office to call back regarding nextsteps in the patient's treatment plan. Sonia states the office can ask for the day nurse: thiago Suttoncalling back. Please contact Cher and advise. Best time of day caller can be reached: Any Patient advised that office/PCP has 24-48 business hours to return their call: No * Telephone Encounter - Ramona Monae - 04/19/2025 3:56 PM EDT Name of caller: Steve Contact phone number: [phone] Relationship to Patient: patient Provider: Dr Napier Practice: Neurology Chief Complaint/Reason for Call: Patient called upset stating that [facility] [place]. Stated it should not have been sent there. Patient asking for a nurse to call her first thing in the morning due to her stating she needs this tomorrow. Please call patient back to advise. Best time of day caller can be reached: Any Patient advised that office/PCP has 24-48 business hours to return their call: N/A * Telephone Encounter - Danny Mchugh LPN - 04/18/2025 4:55 PM EDT Appeal denial letter is in patient's chart. * Telephone Encounter - Danny Mchugh LPN - 04/17/2025 3:22 PM EDT Waiting on fax. * Telephone Encounter - Danny Mchugh LPN - 04/17/2025 1:12 PM EDT Specialty pharmacy, please assist. * Telephone Encounter - Virginia Small - 04/17/2025 12:58 PM EDT Name of caller: Cher Contact phone number: [phone] Relationship to Patient: Yahir Magallon Provider: Dr Napier Practice: Neurology Chief Complaint/Reason for Call: Yahir Magallon stated they received a letter from the patient's insurance company regarding the deutetrabenazine (Austedo). They will be faxing the letter to the office for directives. The patient will be out of the current supply this Wednesday. Please advise. Best time of day caller can be reached: Any Patient advised that office/PCP has 24-48 business hours to return their call: Yes documented in this encounterSProvidence [id number] Note* Addendum Note - Robby Napier MD - 04/20/2025 4:34 PM EDTAddended by: ROBBY NAPIER on: 04/20/2025 04:34 PM Modules accepted: Orders [facility] HospitalFqqjyh11-23-6694 Note* Addendum Note - Robby Napier MD - 04/20/2025 4:34 PM EDTAddended by: ROBBY NAPIER on: 04/20/2025 04:34 PM Modules accepted: Orders [address]Nhetxl45-72-2261 Note* Addendum Note - Robby Napier MD - 04/20/2025 4:34 PM EDTAddended by: ROBBY NAPIER on: 04/20/2025 04:34 PM Modules accepted: Orders [address]Ttiyku13-15-0536 Note* Addendum Note - Robby Napier MD - 04/20/2025 4:34 PM EDTAddended by: ROBBY NAPIER on: 04/20/2025 04:34 PM Modules accepted: Orders [place] [id number] Note* Addendum Note - Robby Napier MD - 04/20/2025 4:34 PM EDTAddended by: ROBBY NAPIER on: 04/20/2025 04:34 PM Modules accepted: Orders [place] [id number] Note* Addendum Note - Robby Napier MD - 04/20/2025 4:34 PM EDTAddended by: ROBBY NAPIER on: 04/20/2025 04:34 PM Modules accepted: Orders [id number] Note* Addendum Note - Robby Napier MD - 04/20/2025 4:34 PM EDTAddended by: ROBBY NAPIER on: 04/20/2025 04:34 PM Modules accepted: Orders [address]Zsytpt18-35-2551 Note* Addendum Note - Robby Napier MD - 04/20/2025 4:34 PM EDTAddended by: ROBBY NAPIER on: 04/20/2025 04:34 PM Modules accepted: Orders [id number] Note* Addendum Note - Robby Napier MD - 04/20/2025 4:34 PM EDTAddended by: ROBBY NAPIER on: 04/20/2025 04:34 PM Modules accepted: Orders [address]Zvqonj38-72-5125 Note* Addendum Note - Robby Napier MD - 04/20/2025 4:34 PM EDTAddended by: ROBBY NAPIER on: 04/20/2025 04:34 PM Modules accepted: Orders [address]Vuwykw48-36-9949 Note* Addendum Note - Robby Napier MD - 04/20/2025 4:34 PM EDTAddended by: ROBBY NAPIER on: 04/20/2025 04:34 PM Modules accepted: Orders [address]Izrcsp60-01-2902 Note* Addendum Note - Robby Napier MD - 04/20/2025 4:34 PM EDTAddended by: ROBBY NAPIER on: 04/20/2025 04:34 PM Modules accepted: Orders [address]Carhba64-03-2617 Miscellaneous Notes* Addendum Note - Robby Napier MD - 04/20/2025 4:34 PM EDTAddended by: ROBBY NAPIER on: 04/20/2025 04:34 PM Modules accepted: Orders * Telephone Encounter - Robby Napier MD - 04/20/2025 4:16 PM EDT We never received a denial letter for regular Austedo. We were told that Austedo XR at 30 mg was denied but not regular release Austedo. In fact, Austedo is on the [facility] Formulary on page67. I will try to get her tetrabenazine. Tardive dyskinesia is off label for tetrabenazine, so her insurance will probably reject the tetrabenazine now. * Telephone Encounter - Sophy Ayala MA - 04/20/2025 2:13 PM EDT Cher stated that the Austedo is not covered by patients insurance. Cher stated that tertbenazine. Lizasking if Dr Napier would like patient to try tertbenazine and if so to please send a prescription to [facility]. * Telephone Encounter - Ramona Monae - 04/20/2025 2:09 PM EDT Message released to patient as written. Patient's further questions if applicable: Cher called back and I was told by backline that I could relay message "The Austedo 6 mg and Austedo 9 mg Rx was sent on 04/17 twith instructions to the pharmacist saying, "This is to start after she completes the Austedo XR titration pack given on 03/22/25." It was [facility] by [facility]:E-Prescribing Status: Receipt confirmed by pharmacy (03/27/2025 5:36 PM EDT). The sig of the scripts explains that she is to take a 6 mg and a 9 mg pill together BID. This is not the XR version, so she has to take them BID. If they do not have those tabs, they need to ask [facility] what is going on. " Cher stated that the Austedo is not covered by patients insurance. Cher stated that tertbenazine. Lizasking if Dr Napier would like patient to try tertbenazine and if so to please send a prescription to [facility]. Please advise. Were all questions from office addressed or relayed to the patient from encounter: Yes * Telephone Encounter - Sophy Ayala MA - 04/20/2025 1:59 PM EDT Lm for Cher to call the office back, please relay providers message. * Telephone Encounter - Robby Napier MD - 04/20/2025 1:46 PM EDT The Austedo 6 mg and Austedo 9 mg Rx was sent on 04/17 twith instructions to the pharmacist saying,"This is to start after she completes the Austedo XR titration pack given on 03/22/25." It was received by [facility]:E- Prescribing Status: Receipt confirmed by pharmacy (03/27/2025 5:36 PM EDT). The sig of the scripts explains that she is to take a 6 mg and a 9 mg pill together BID. This is not the XR version, so she has to take them BID. If they do not have those tabs, they need to ask [facility] what is going on. * Telephone Encounter - Heidi Tinsley - 04/20/2025 1:28 PM EDT Name of caller: Cher Contact phone number: [phone] Relationship to Patient: [facility]on [facility] Provider: Dr Napier Practice: [facility] Chief Complaint/Reason for Call: Cher called in regarding medication management. States that patientis now completely out of Austedo sample packs office had supplied. Please advise. Best time of day caller can be reached: any Patient advised that office/PCP has 24-48 business hours to return their call: Yes * Telephone Encounter - Brit Luevano - 04/19/2025 4:06 PM EDT [facility]. While talking to patient she states her last sample of the Austedo XR is tonight and wont have anything for Wednesday. Per pt also she states Austedo XR not doing anything different then Ingrezza. She is willing to try the Tetrabenazine that insurance is requiring if Dr Napier wants or will do whatever he thinks is appropriate. * Telephone Encounter - Madelin Mcpherson - 04/19/2025 4:05 PM EDT Name of caller: Sonia Contact phone number: [phone] Relationship to Patient: [facility] Provider: Dr. Napier Practice: [facility] Chief Complaint/Reason for Call: Sonia states she would like the office to call back regarding nextsteps in the patient's treatment plan. Sonia states the office can ask for the day nurse: Cher, whencalling back. Please contact Cher and advise. Best time of day caller can be reached: Any Patient advised that office/PCP has 24-48 business hours to return their call: No * Telephone Encounter - Ramona Monae - 04/19/2025 3:56 PM EDT Name of caller: Steve Contact phone number: [phone] Relationship to Patient: patient Provider: Dr Napier Practice: Neurology Chief Complaint/Reason for Call: Patient called upset stating that [facility] [place]. Stated it should not have been sent there. Patient asking for a nurse to call her first thing in the morning due to her stating she needs this tomorrow. Please call patient back to advise. Best time of day caller can be reached: Any Patient advised that office/PCP has 24-48 business hours to return their call: N/A * Telephone Encounter - Danny Mchugh LPN - 04/18/2025 4:55 PM EDT Appeal denial letter is in patient's chart. * Telephone Encounter - Danny Mchugh LPN - 04/17/2025 3:22 PM EDT Waiting on fax. * Telephone Encounter - Danny Mchugh LPN - 04/17/2025 1:12 PM EDT Specialty pharmacy, please assist. * Telephone Encounter - Virginia Small - 04/17/2025 12:58 PM EDT Name of caller: Cher Contact phone number: [phone] Relationship to Patient: Yahir Magallon Provider: Dr Napier Practice: Neurology Chief Complaint/Reason for Call: Yahir Magallon stated they received a letter from the patient's insurance company regarding the deutetrabenazine (Austedo). They will be faxing the letter to the office for directives. The patient will be out of the current supply this Wednesday. Please advise. Best time of day caller can be reached: Any Patient advised that office/PCP has 24-48 business hours to return their call: Yes documented in this [facility]06-20-2025 Telephone encounter Note* Telephone Encounter - Robby Napier MD - 04/20/2025 4:16 PM EDT We never received a denial letter for regular Austedo. We were told that Austedo XR at 30 mg was denied but not regular release Austedo. In fact, Austedo is on the [facility] Formulary on page67. I will try to get her tetrabenazine. Tardive dyskinesia is off label for tetrabenazine, so her insurance will probably reject the tetrabenazine now. [facility] [id number] Telephone encounter Note* Telephone Encounter - Zulema Okeefe PharmD - 04/20/2025 3:37 PM EDT I saw notes that patient might be running out of Austedo sample. I have submitted an appeal to insurance for Austedo coverage. In the meanwhile, there is a 30 day free trial voucher that she is able to use. 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 [facility] [id number] Miscellaneous Notes* Telephone Encounter - Zulema Okeefe PharmD - 04/20/2025 3:37 PM EDT I saw notes that patient might be running out of Austedo sample. I have submitted an appeal to insurance for Austedo coverage. In the meanwhile, there is a 30 day free trial voucher that she is able to use. 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 documented in this encounterSProvidence [id number] Telephone encounter Note* Telephone Encounter - Sophy Ayala MA - 04/20/2025 2:13 PM EDT Cher stated that the Austedo is not covered by patients insurance. Cher stated that tertbenazine. Cherasking if Dr Napier would like patient to try tertbenazine and if so to please send a prescription to [facility]. [facility] HospitalAtgwkt82-19-7983 Miscellaneous Notes* Telephone Encounter - Sophy Ayala MA - 04/20/2025 2:13 PM EDT Cher stated that the Austedo is not covered by patients insurance. Cher stated that tertbenazine. Lizasking if Dr Napier would like patient to try tertbenazine and if so to please send a prescription to [facility]. * Telephone Encounter - Ramona Monae - 04/20/2025 2:09 PM EDT Message released to patient as written. Patient's further questions if applicable: Cher called back and I was told by backline that I could relay message "The Austedo 6 mg and Austedo 9 mg Rx was sent on 04/17 twith instructions to the pharmacist saying, "This is to start after she completes the Austedo XR titration pack given on 03/22/25." It was [facility] by [facility]:E-Prescribing Status: Receipt confirmed by pharmacy (03/27/2025 5:36 PM EDT). The sig of the scripts explains that she is to take a 6 mg and a 9 mg pill together BID. This is not the XR version, so she has to take them BID. If they do not have those tabs, they need to ask [facility] what is going on. " Cher stated that the Austedo is not covered by patients insurance. Cher stated that tertbenazine. Lizasking if Dr Napier would like patient to try tertbenazine and if so to please send a prescription to [facility]. Please advise. Were all questions from office addressed or relayed to the patient from encounter: Yes * Telephone Encounter - Sophy Ayala MA - 04/20/2025 1:59 PM EDT Lm for Cher to call the office back, please relay providers message. * Telephone Encounter - Robby Napier MD - 04/20/2025 1:46 PM EDT The Austedo 6 mg and Austedo 9 mg Rx was sent on 04/17 twith instructions to the pharmacist saying,"This is to start after she completes the Austedo XR titration pack given on 03/22/25." It was received by [facility]:E- Prescribing Status: Receipt confirmed by pharmacy (03/27/2025 5:36 PM EDT). The sig of the scripts explains that she is to take a 6 mg and a 9 mg pill together BID. This is not the XR version, so she has to take them BID. If they do not have those tabs, they need to ask [facility] what is going on. * Telephone Encounter - Heidi Tinsley - 04/20/2025 1:28 PM EDT Name of caller: Cher Contact phone number: [phone] Relationship to Patient: Y[facility]on [facility] Provider: Dr Napier Practice: [facility] Chief Complaint/Reason for Call: Cher called in regarding medication management. States that patientis now completely out of Austedo sample packs office had supplied. Please advise. Best time of day caller can be reached: any Patient advised that office/PCP has 24-48 business hours to return their call: Yes * Telephone Encounter - Brit Luevano - 04/19/2025 4:06 PM EDT [facility]. While talking to patient she states her last sample of the Austedo XR is tonight and wont have anything for Wednesday. Per pt also she states Austedo XR not doing anything different then Ingrezza. She is willing to try the Tetrabenazine that insurance is requiring if Dr Napier wants or will do whatever he thinks is appropriate. * Telephone Encounter - Madelin Mcpherson - 04/19/2025 4:05 PM EDT Name of caller: Sonia Contact phone number: [phone] Relationship to Patient: [facility] Provider: Dr. Napier Practice: [facility] [place] Chief Complaint/Reason for Call: Sonia states she would like the office to call back regarding nextsteps in the patient's treatment plan. Sonia states the office can ask for the day nurse: thiago Suttoncalling back. Please contact Cher and advise. Best time of day caller can be reached: Any Patient advised that office/PCP has 24-48 business hours to return their call: No * Telephone Encounter - Ramona Monae - 04/19/2025 3:56 PM EDT Name of caller: Steve Contact phone number: [phone] Relationship to Patient: patient Provider: Dr Napier Practice: Neurology Chief Complaint/Reason for Call: Patient called upset stating that [facility] [place]. Stated it should not have been sent there. Patient asking for a nurse to call her first thing in the morning due to her stating she needs this tomorrow. Please call patient back to advise. Best time of day caller can be reached: Any Patient advised that office/PCP has 24-48 business hours to return their call: N/A * Telephone Encounter - Danny Mchugh LPN - 04/18/2025 4:55 PM EDT Appeal denial letter is in patient's chart. * Telephone Encounter - Danny Mchugh LPN - 04/17/2025 3:22 PM EDT Waiting on fax. * Telephone Encounter - Danny Mchugh LPN - 04/17/2025 1:12 PM EDT Specialty pharmacy, please assist. * Telephone Encounter - Virginia Small - 04/17/2025 12:58 PM EDT Name of caller: Cher Contact phone number: [phone] Relationship to Patient: Yahir Magallon Provider: Dr Napier Practice: Neurology Chief Complaint/Reason for Call: Yahir Magallon stated they received a letter from the patient's insurance company regarding the deutetrabenazine (Austedo). They will be faxing the letter to the office for directives. The patient will be out of the current supply this Wednesday. Please advise. Best time of day caller can be reached: Any Patient advised that office/PCP has 24-48 business hours to return their call: Yes documented in this [facility]06-20-2025 Telephone encounter Note* Telephone Encounter - Ramona Monae - 04/20/2025 2:09 PM EDT Message released to patient as written. Patient's further questions if applicable: Cher called back and I was told by backline that I could relay message "The Austedo 6 mg and Austedo 9 mg Rx was sent on 04/17 twith instructions to the pharmacist saying, "This is to start after she completes the Austedo XR titration pack given on 03/22/25." [facility] was [facility] by [facility]:E-Prescribing Status: Receipt confirmed by pharmacy (03/27/2025 5:36 PM EDT). The sig of the scripts explains that she is to take a 6 mg and a 9 mg pill together BID. This is not the XR version, so she has to take them BID. If they do not have those tabs, they need to ask [facility] what is going on. " Cher stated that the Austedo is not covered by patients insurance. Cher stated that tertbenazine. Cherasking if Dr Napier would like patient to try tertbenazine and if so to please send a prescription to [facility]. Please advise. Were all questions from office addressed or relayed to the patient from encounter: Yes [facility] [id number] Telephone encounter Note* Telephone Encounter - Sophy Ayala MA - 04/20/2025 1:59 PM EDT Lm for Cher to call the office back, please relay providers message. [facility] [id number] Telephone encounter Note* Telephone Encounter - Robby Napier MD - 04/20/2025 1:46 PM EDT The Austedo 6 mg and Austedo 9 mg Rx was sent on 04/17 twith instructions to the pharmacist saying,"This is to start after she completes the Austedo XR titration pack given on 03/22/25." It was received by [facility]:E- Prescribing Status: Receipt confirmed by pharmacy (03/27/2025 5:36 PM EDT). The sig of the scripts explains that she is to take a 6 mg and a 9 mg pill together BID. This is not the XR version, so she has to take them BID. If they do not have those tabs, they need to ask [facility] what is going on. [facility] [id number] Telephone encounter Note* Telephone Encounter - Heidi Tinsley - 04/20/2025 1:28 PM EDT Name of caller: Cher Contact phone number: [phone] Relationship to Patient: [facility] Provider: Dr Napier Practice: [facility] Chief Complaint/Reason for Call: Cher called in regarding medication management. States that patientis now completely out of Austedo sample packs office had supplied. Please advise. Best time of day caller can be reached: any Patient advised that office/PCP has 24-48 business hours to return their call: Yes [facility] HospitalKwqhgd51-67-0475 Telephone encounter Note* Telephone Encounter - Brit Luevano - 04/19/2025 4:06 PM EDT [facility]. While talking to patient she states her last sample of the Austedo XR is tonight and wont have anything for Wednesday. Per pt also she states Austedo XR not doing anything different then Ingrezza. She is willing to try the Tetrabenazine that insurance is requiring if Dr Napier wants or will do whatever he thinks is appropriate. [facility] HospitalVdsmtb95-50-7159 Miscellaneous Notes* Telephone Encounter - Brit Luevano - 04/19/2025 4:06 PM EDT [facility] to [facility] also. While talking to patient she states her last sample of the Austedo XR is tonight and wont have anything for Wednesday. Per pt also she states Austedo XR not doing anything different then Ingrezza. She is willing to try the Tetrabenazine that insurance is requiring if Dr Napier wants or will do whatever he thinks is appropriate. * Telephone Encounter - Madelin Mcpherson - 04/19/2025 4:05 PM EDT Name of caller: Sonia Contact phone number: [phone] Relationship to Patient: [facility] Provider: Dr. Napier Practice: Neurology, [place] Chief Complaint/Reason for Call: Sonia states she would like the office to call back regarding nextsteps in the patient's treatment plan. Sonia states the office can ask for the day nurse: Cher, whencalling back. Please contact Cher and advise. Best time of day caller can be reached: Any Patient advised that office/PCP has 24-48 business hours to return their call: No * Telephone Encounter - Ramona Monae - 04/19/2025 3:56 PM EDT Name of caller: Steve Contact phone number: [phone] Relationship to Patient: patient Provider: Dr Napier Practice: Neurology Chief Complaint/Reason for Call: Patient called upset stating that the [facility] [place]. Stated it should not have been sent there. Patient asking for a nurse to call her first thing in the morning due to her stating she needs this tomorrow. Please call patient back to advise. Best time of day caller can be reached: Any Patient advised that office/PCP has 24-48 business hours to return their call: N/A * Telephone Encounter - Danny Mchugh LPN - 04/18/2025 4:55 PM EDT Appeal denial letter is in patient's chart. * Telephone Encounter - Danny Mchugh LPN - 04/17/2025 3:22 PM EDT Waiting on fax. * Telephone Encounter - Danny Mchugh LPN - 04/17/2025 1:12 PM EDT Specialty pharmacy, please assist. * Telephone Encounter - Virginia Small - 04/17/2025 12:58 PM EDT Name of caller: Cher Contact phone number: [phone] Relationship to Patient: Yahir Magallon Provider: Dr Napier Practice: Neurology Chief Complaint/Reason for Call: Yahir Magallon stated they received a letter from the patient's insurance company regarding the deutetrabenazine (Austedo). They will be faxing the letter to the office for directives. The patient will be out of the current supply this Wednesday. Please advise. Best time of day caller can be reached: Any Patient advised that office/PCP has 24-48 business hours to return their call: Yes documented in this [facility]06-19-2025 Telephone encounter Note* Telephone Encounter - Madelin Mcpherson - 04/19/2025 4:05 PM EDT Name of caller: Sonia Contact phone number: [phone] Relationship to Patient: [facility] Provider: Dr. Napier Practice: Neurology, [place] Chief Complaint/Reason for Call: Sonia states she would like the office to call back regarding nextsteps in the patient's treatment plan. Sonia states the office can ask for the day nurse: Cher, whencalling back. Please contact Cher and advise. Best time of day caller can be reached: Any Patient advised that office/PCP has 24-48 business hours to return their call: No [facility] HospitalPstmun43-05-3077 Telephone encounter Note* Telephone Encounter - Ramona Monae - 04/19/2025 3:56 PM EDT Name of caller: Steve Contact phone number: [phone] Relationship to Patient: patient Provider: Dr Napier Practice: Neurology Chief Complaint/Reason for Call: Patient called upset stating that the Prior Authorization got [facility] [place]. Stated it should not have been sent there. Patient asking for a nurse to call her first thing in the morning due to her stating she needs this tomorrow. Please call patient back to advise. Best time of day caller can be reached: Any Patient advised that office/PCP has 24-48 business hours to return their call: N/A [facility] HospitalZxczgk43-03-5321 Telephone encounter Note* Telephone Encounter - Danny Mchugh LPN - 04/18/2025 4:55 PM EDT Appeal denial letter is in patient's chart. [facility] HospitalNyonqq18-43-1225 Telephone encounter Note* Telephone Encounter - Danny Mchugh LPN - 04/17/2025 3:22 PM EDT [address]ing on fax. [address]Xepnga28-00-4501 Telephone encounter Note* Telephone Encounter - Danny Mchugh LPN - 04/17/2025 1:12 PM EDT Specialty pharmacy, please assist. [facility] HospitalPqqduh32-59-4254 Telephone encounter Note* Telephone Encounter - Virginia Small - 04/17/2025 12:58 PM EDT Name of caller: Cher Contact phone number: [phone] Relationship to Patient: Yahirchema Magallon Provider: Dr Napier Practice: Neurology Chief Complaint/Reason for Call: Yahir Magallon stated they received a letter from the patient's insurance company regarding the deutetrabenazine (Austedo). They will be faxing the letter to the office for directives. The patient will be out of the current supply this Wednesday. Please advise. Best time of day caller can be reached: Any Patient advised that office/PCP has 24-48 business hours to return their call: Yes T [facility] [id number] Note* Exam Date Time Procedure Performing Provider Status 04/16/25 10:[address] Shoulder w/o Contrast Left ROQUE PEREZ MD; Auth (Verified) [id number] ORIGINAL EXAMINATION: CT OF THE LEFT SHOULDER WITHOUT CONTRAST 04/16/2025 10:55 am TECHNIQUE: CT of the left shoulder was performed without the administration of intravenous contrast. Multiplanar reformatted images are provided for review. Automated exposure control, iterative reconstruction, and/or weight based adjustment of the mA/kV was utilized to reduce the radiation dose to as low as reasonably achievable. COMPARISON: Left shoulder radiograph dated 01/26/2025 HISTORY ORDERING SYSTEM PROVIDED HISTORY: Reason for Exam: pre op reverse total shoulder arthoplasty FINDINGS: There is no acute fracture or dislocation. There is no suspicious lytic or blastic osseous lesion. There is no aggressive periosteal reaction. Mild AC joint degenerative changes with slight laterally downsloping acromion. Type 1 acromial undersurface. There is narrowing of the coracohumeral interval. Severe left glenohumeral joint degenerative change with high-riding humeral head, [id number], subchondral sclerosis marginal osteophyte formation and articular surface remodeling of the glenoid. Subacromial subdeltoid fluid with glenohumeral joint effusion with calcified intra-articular debris measuring up to 4 mm. There is no evidence of solid soft tissue mass. Partially visualized aortic atherosclerosis. Left coronary atherosclerosis. Partially visualized large hiatal hernia. Partially visualized lung zone aerated. Generalized rotator cuff muscle atrophy that is severe involving the supraspinatus and infraspinatus muscle bellies. IMPRESSION: 1. Severe left glenohumeral joint degenerative change in a patient presenting for preop planning. 2. Subacromial subdeltoid fluid with glenohumeral joint effusion with calcified intra-articular debris measuring up to 4 mm. 3. Findings which suggest chronic rotator cuff tearing. Generalized rotator cuff muscle atrophy that is severe involving the supraspinatus and infraspinatus muscle bellies. 4. Partially visualized large hiatal hernia. 5. Left coronary atherosclerosis. 6. Additional incidental findings as detailed above. Interpreted by: Roque Perez Preliminary Report By: Roque Perez Electronically signed By Roque Perez Dictated Date: 04/16/2025 10:57:35 AM Prelim Date: 04/16/2025 11:05:00 AM Sign Date: 04/16/2025 11:05:00 AM [facility]ing [facility] Telephone encounter Note* Telephone Encounter - Linda Jordan MA - 04/02/2025 2:21 PM EDT Cher has been notified [facility] [id number] Miscellaneous Notes* Telephone Encounter - Linda Jordan MA - 04/02/2025 2:21 PM EDT Cher has been notified * Telephone Encounter - Lizette Kurtz - 04/02/2025 2:11 PM EDT Pt called to discuss denial of Austedo XR and stated that nurses at [facility] have not rec messages from the office. Pt gave the number [phone] for the office to call, and stated detailed messages can be left atthat number. Pt stated that Cher, Masha or Jackie would be best to speak with to make sure message was properly handled. Thank you. * Telephone Encounter - Linda Jordan MA - 04/02/2025 9:47 AM EDT Lm for yahir magallon nurse to call the office back, please transfer back to the office when they do call back. * Telephone Encounter - Linda Jordan MA - 03/29/2025 9:37 AM EDT Lm for yahir magallon nurse to call the office back, please transfer back to the office when they do call back. * Telephone Encounter - Linda Jordan MA - 03/28/2025 8:51 AM EDT Lm for yahir magallon nurse to call the office back, please transfer back to the office when they do call back. * Addendum Note - Robby Napier MD - 03/27/2025 5:40 PM EDTAddended by: ROBBY NAPIER on: 03/27/2025 05:40 PM Modules accepted: Orders * Telephone Encounter - Robby Napier MD - 03/27/2025 5:36 PM EDT Please call her living place. Her insurance refused to pay for Austedo Xr but said it would pay forregular Austedo BID. After she completes the Austedo XR titration pack, she will start taking regular Austedo 6 mg + 9 mg twice a day. * Telephone Encounter - Zulema Okeefe PharmD - 03/27/2025 10:55 AM EDT Images from the original note were not included. Austedo XR was denied. Ins prefers Austedo immediate release and tetrabenzine. [facility] for one of these other 2. documented in this encounterSProvidence HospitalPgwqlt70-19-3951 Telephone encounter Note* Telephone Encounter - Lizette Tessie - 04/02/2025 2:11 PM EDT Pt called to discuss denial of Austedo XR and stated that nurses at [facility] have not rec messages from the office. Pt gave the number [phone] for the office to call, and stated detailed messages can be left atthat number. Pt stated that Cher, Masha or Jackie would be best to speak with to make sure message was properly handled. Thank you. [facility] [id number] Telephone encounter Note* Telephone Encounter - Linda Jordan MA - 04/02/2025 9:47 AM EDT Lm for [facility] nurse to call the office back, please transfer back to the office when they do call back. [facility] HospitalCtoykr61-27-8388 Telephone encounter Note* Telephone Encounter - Linda Jordan MA - 03/29/2025 9:37 AM EDT Lm for [facility] nurse to call the office back, please transfer back to the office when they do call back. [facility] HospitalXrpjmj37-17-2108 Miscellaneous Notes* Telephone Encounter - Linda Jordan MA - 03/29/2025 9:37 AM EDT Lm for [facility] nurse to call the office back, please transfer back to the office when they do call back. * Telephone Encounter - Linda Jordan MA - 03/28/2025 8:51 AM EDT Lm for yahir magallon nurse to call the office back, please transfer back to the office when they do call back. * Addendum Note - Robby Napire MD - 03/27/2025 5:40 PM EDTAddended by: ROBBY NAPIER on: 03/27/2025 05:40 PM Modules accepted: Orders * Telephone Encounter - Robby Napier MD - 03/27/2025 5:36 PM EDT Please call her living place. Her insurance refused to pay for Austedo Xr but said it would pay forregular Austedo BID. After she completes the Austedo XR titration pack, she will start taking regular Austedo 6 mg + 9 mg twice a day. * Telephone Encounter - Zulema Okeefe PharmD - 03/27/2025 10:55 AM EDT Images from the original note were not included. Austedo XR was denied. Ins prefers Austedo immediate release and tetrabenzine. [facility] for one of these other 2. documented in this encounterSProvidence HospitalCzwebo51-47-8147 Telephone encounter Note* Telephone Encounter - Linda Jordan MA - 03/28/2025 8:51 AM EDT Lm for yahir magallon nurse to call the office back, please transfer back to the office when they do call back. [facility] HospitalXjujty18-62-8836 Miscellaneous Notes* Telephone Encounter - Linda Jordan MA - 03/28/2025 8:51 AM EDT Lm for yahir magallon nurse to call the office back, please transfer back to the office when they do call back. * Addendum Note - Robby Napier MD - 03/27/2025 5:40 PM EDTAddended by: ROBBY NAPIER on: 03/27/2025 05:40 PM Modules accepted: Orders * Telephone Encounter - Robby Napier MD - 03/27/2025 5:36 PM EDT Please call her living place. Her insurance refused to pay for Austedo Xr but said it would pay forregular Austedo BID. After she completes the Austedo XR titration pack, she will start taking regular Austedo 6 mg + 9 mg twice a day. * Telephone Encounter - Zulema Okeefe PharmD - 03/27/2025 10:55 AM EDT Images from the original note were not included. Austedo XR was denied. Ins prefers Austedo immediate release and tetrabenzine. [facility] for one of these other 2. documented in this encounterSProvidence HospitalVryjad11-37-7692 Note* Addendum Note - Robby Napier MD - 03/27/2025 5:40 PM EDTAddended by: ROBBY NAPIER on: 03/27/2025 05:40 PM Modules accepted: Orders [facility] [id number] Note* Addendum Note - Robby Napier MD - 03/27/2025 5:40 PM EDTAddended by: ROBBY NAPIER on: 03/27/2025 05:40 PM Modules accepted: Orders [facility] HospitalNqjscb99-05-2045 Note* Addendum Note - Robby Napier MD - 03/27/2025 5:40 PM EDTAddended by: ROBBY NAPIER on: 03/27/2025 05:40 PM Modules accepted: Orders [facility] HospitalBhndnl65-51-1759 Note* Addendum Note - Robby Napier MD - 03/27/2025 5:40 PM EDTAddended by: ROBBY NAPIER on: 03/27/2025 05:40 PM Modules accepted: Orders [facility] HospitalMfjmce39-64-8947 Note* Addendum Note - Robby Napier MD - 03/27/2025 5:40 PM EDTAddended by: ROBBY NAPIER on: 03/27/2025 05:40 PM Modules accepted: Orders [facility] HospitalTiokag44-00-6969 Note* Addendum Note - Robby Napier MD - 03/27/2025 5:40 PM EDTAddended by: ROBBY NAPIER on: 03/27/2025 05:40 PM Modules accepted: Orders [facility] [id number] Note* Addendum Note - Robby Napier MD - 03/27/2025 5:40 PM EDTAddended by: ROBBY NAPIER on: 03/27/2025 05:40 PM Modules accepted: Orders [facility] HospitalHuvzyd71-39-8360 Note* Addendum Note - Robby Napier MD - 03/27/2025 5:40 PM EDTAddended by: ROBBY NAPIER on: 03/27/2025 05:40 PM Modules accepted: Orders [facility] HospitalPvcyda19-39-3718 Miscellaneous Notes* Addendum Note - Robby Napier MD - 03/27/2025 5:40 PM EDTAddended by: ROBBY NAPIER on: 03/27/2025 05:40 PM Modules accepted: Orders * Telephone Encounter - Robby Napier MD - 03/27/2025 5:36 PM EDT Please call her living place. Her insurance refused to pay for Austedo Xr but said it would pay forregular Austedo BID. After she completes the Austedo XR titration pack, she will start taking regular Austedo 6 mg + 9 mg twice a day. * Telephone Encounter - Zulema Okeefe PharmD - 03/27/2025 10:55 AM EDT Images from the original note were not included. Austedo XR was denied. Ins prefers Austedo immediate release and tetrabenzine. [facility] for one of these other 2. documented in this [facility]05-27-2025 Telephone encounter Note* Telephone Encounter - Robby Napier MD - 03/27/2025 5:36 PM EDT Please call her living place. Her insurance refused to pay for Austedo Xr but said it would pay forregular Austedo BID. After she completes the Austedo XR titration pack, she will start taking regular Austedo 6 mg + 9 mg twice a day. [facility] [id number] Telephone encounter Note* Telephone Encounter - Zulema Okeefe PharmD - 03/27/2025 10:55 AM EDT Images from the original note were not included. Austedo XR was denied. Ins prefers Austedo immediate release and tetrabenzine. [facility] for one of these other 2. [facility] HospitalEfleky95-30-1829 Telephone encounter Note* Telephone Encounter - Linda Jordan MA - 03/23/2025 11:22 AM EDT Spoke with Cher and gave a verbal for orders. [facility] HospitalAtynhi73-95-4919 Miscellaneous Notes* Telephone Encounter - Linda Jordan MA - 03/23/2025 11:22 AM EDT Spoke with Cher and gave a verbal for orders. * Telephone Encounter - Kellie Curran - 03/22/2025 5:54 PM EDT Name of caller: Jackie Contact phone number: [phone] Relationship to Patient: Yahir [facility] Provider: Dr. Napier Practice: Neurology Chief Complaint/Reason for Call: Jackie called advising they will need a stop order for patient to stop taking the Ingrezza in order for patient to start the Austedo. Please reach out to Jackie with any questions. Best time of day caller can be reached: any Patient advised that office/PCP has 24-48 business hours to return their call: N/A documented in this [facility]05-22-2025 Telephone encounter Note* Telephone Encounter - Kellie Curran - 03/22/2025 5:54 PM EDT Name of caller: Jackie Contact phone number: [phone] Relationship to Patient: Yhair Magallon [facility] Provider: Dr. Napier Practice: Neurology Chief Complaint/Reason for Call: Jackie called advising they will need a stop order for patient to stop taking the Ingrezza in order for patient to start the Austedo. Please reach out to Jackie with any questions. Best time of day caller can be reached: any Patient advised that office/PCP has 24-48 business hours to return their call: N/A T [facility] HospitalTxhuui79-63-9072 Note* Exam Date Time Procedure Performing Provider Status 02/27/25 11:03 AM MRI Spine Cervical w/o Contrast JESSICA , MONI Raya MD; Auth (Verified) [id number] ORIGINAL EXAMINATION: MRI OF THE CERVICAL SPINE WITHOUT CONTRAST 02/27/2025 11:04 am TECHNIQUE: Multiplanar multisequence MRI of the cervical spine was performed without the administration of intravenous contrast. COMPARISON: MRI cervical spine 02/27/2025. HISTORY: ORDERING SYSTEM PROVIDED HISTORY: Reason for Exam: Neck pain radiates into left shoulder. Intermittent pain down LUE with paresthesias. Headaches. FINDINGS: BONES/ALIGNMENT: There is grade 1 retrolisthesis of C6 with respect to C5 and C7 unchanged. SPINAL CORD: No abnormal cord signal is seen. SOFT TISSUES: No paraspinal mass identified. C2-C3: There is no significant disc protrusion, spinal canal stenosis or neural foraminal narrowing. C3-C4: Broad-based bulging of disc and spur with mild canal and left foraminal narrowing unchanged. C4-C5: Ventral ridging from bulging disc and spur with mild canal and left foraminal narrowing. C5-C6: Anterolisthesis of C5 on C6 with mild stenosis unchanged. C6-C7: Retrolisthesis C6 on C7 with moderate canal and bilateral foraminal narrowing unchanged. C7-T1: There is no significant disc protrusion, spinal canal stenosis or neural foraminal narrowing. IMPRESSION: Retrolisthesis of C6 on C7 resulting in moderate canal and foraminal stenosis similar to 05/11/2023. Lesser canal stenosis in the upper levels as outlined above unchanged. Interpreted by: Moni Coffey Preliminary Report By: Moni Coffey Electronically signed By Moni Coffey Dictated Date: 02/27/2025 11:07:37 AM Prelim Date: 02/27/2025 11:11:14 AM Sign Date: 02/27/2025 11:11:14 AM Ordering Provider: BOB MOSELEY [facility]03-17-2025 Telephone encounter Note* Telephone Encounter - TANMAY Mcclain CNP - 01/15/2025 9:47 AM EDT I spoke with nurse Jackie from the facility. She states that Nurtec is causing pain, headache after dosing. Pt had reported it felt like her head was in a vice after dosing. Verbal order given to discontinue Nurtec [facility] HospitalTqkqwh27-77-1512 Miscellaneous Notes* Telephone Encounter - TANMAY Mcclain CNP - 01/15/2025 9:47 AM EDT I spoke with nurse Jackie from the facility. She states that Nurtec is causing pain, headache after dosing. Pt had reported it felt like her head was in a vice after dosing. Verbal order given to discontinue Nurtec * Telephone Encounter - TANMAY Mcclain CNP - 01/12/2025 2:43 PM EDT The office received a fax from [employer] stating pt does not want to take Nurtec and they wanted to dc. I tried calling the facility and had to leave a VM trying to get more information. documented in this encounterSProvidence HospitalYdiqom72-71-1276 Telephone encounter Note* Telephone Encounter - TANMAY Mcclain CNP - 01/12/2025 2:43 PM EDT The office received a fax from [employer] stating pt does not want to take Nurtec and they wanted to dc. I tried calling the facility and had to leave a VM trying to get more information. [facility] [id number] Miscellaneous Notes* Telephone Encounter - ATNMAY Mcclain CNP - 01/12/2025 2:43 PM EDT The office received a fax from [facility] stating pt does not want to take Nurtec and they wanted to dc. I tried calling the facility and had to leave a VM trying to get more information. documented in this encounterSProvidence HospitalZprkmu66-38-9113 History of Present illness Narrative* Robby Napier MD - 12/13/2024 3:00 PM EST Images from the original note were not included. [facility] [address] [place] [address] [facility] [address] Dept: [phone] Dept Loc: [phone] Robby Napier MD CHIEF COMPLAINT: Chief Complaint Patient presents with Follow-up Headache HISTORY OF PRESENT ILLNESS: The patient is a 69 y.o. person who returns with abnormal movements. She reports that Ingrezza at 60 mg made her depression worse. I reduced the dose to 40 mg and it is back to normal. She is having frequent headaches. Back of her neck and refers to occiput and vertex. 16 headache days per month.She tried rizatriptan and "sounded drunk." Sumatriptan does not do that. Qulipta made her nauseous. People are noticing apneas while she is sleeping. She is having trouble with her PAP therapy device. She is seeing pulmonology for this. She denies mask leak. Her device is less than a year old. Past Medical History: has a past medical history of Anxiety, Asthma, Bipolar 1 disorder (HCC), Bipolar depression (CMS/HCC) ([facility]), Cerebral palsy (HCC), Cervical spine degeneration, COPD (chronic obstructive pulmonary disease) ([facility]), Dysphasia, Gait abnormality, GERD (gastroesophageal reflux disease), Hypercholesteremia, Hyperreflexia, Hypoglycemia, Hypothyroidism, IBS (irritable bowel syndrome), Myalgia, Myositis, Rhinitis, and Urinary incontinence. Past Surgical History: has a past surgical history that includes Leg Surgery; Carpal tunnel release (Left); Shoulder surgery; Nasal septum surgery; Appendectomy; and Cholecystectomy. Medications: Current Outpatient Medications: Acetaminophen (TYLENOL 8 HOUR PO), Take by mouth., Disp: , Rfl: albuterol (2.5 MG/3ML) 0.083% nebulizer solution, , Disp: , Rfl: albuterol 108 (90 Base) MCG/ACT inhaler, Inhale 2 puffs every 6 hours as needed for wheezing., Disp: , Rfl: ammonium lactate (Amlactin) 12 % cream, APPLY TO ELBOWS ONCE A DAY, Disp: , Rfl: aspirin 81 MG EC tablet, Take 1 tablet by mouth daily., Disp: , Rfl: BUDESONIDE IN, Inhale., Disp: , Rfl: Calcium Carbonate-Vitamin D 500-5 MG-MCG tablet, Take by mouth., Disp: , Rfl: carboxymethylcellulose (Artificial Tears) 1 % ophthalmic solution, 1 drop 3 times daily., Disp: , Rfl: cetirizine (ZyrTEC) 10 MG tablet, Take by mouth., Disp: , Rfl: clopidogrel (Plavix) 75 MG tablet, Take by mouth daily., Disp: , Rfl: Cyanocobalamin (B-12) 1000 MCG sublingual tablet, Place under the tongue., Disp: , Rfl: diazePAM (Valium) 10 MG tablet, Take 1 tablet (10 mg) by mouth Once for 1 dose. 2 hours prior to the MRI, Disp: 1 tablet, Rfl: 0 Diclofenac Sodium (Voltaren) 1 % gel, Apply topically 2 times daily., Disp: , Rfl: ferrous sulfate 325 (65 Fe) MG tablet, Take 325 mg by mouth daily (with breakfast)., Disp: , Rfl: fluticasone (Flonase) 50 MCG/ACT nasal spray, Administer 1 spray into each nostril daily. Shake gently. Before first use, prime pump. After use, clean tip and replace cap., Disp: , Rfl: FORMOTEROL FUMARATE IN, Inhale., Disp: , Rfl: gabapentin (Neurontin) 400 MG capsule, Take 400 mg by mouth 3 times daily., Disp: , Rfl: HYDROcodone-acetaminophen ([place]) 5-325 MG tablet, , Disp: , Rfl: hydrocortisone 2.5 % cream, Apply topically 2 times daily., Disp: , Rfl: hydrOXYzine HCl (Atarax) 25 MG tablet, Take by mouth., Disp: , Rfl: ibandronate (Boniva) 150 MG tablet, Take 150 mg by mouth every 30 (thirty) days. Take in morning with full glass of water on an empty stomach. No food, drink, meds, or lying down for 60 minutes after., Disp: , Rfl: lactase (Lactaid) 3000 units tablet, Take 3,000 Units by mouth in the morning and 3,000 Units at noon and 3,000 Units in the evening. Take with meals., Disp: , Rfl: lamoTRIgine (LAMICTAL PO), Take 100 mg by mouth Nightly., Disp: , Rfl: lamoTRIgine (LaMICtal) 200 MG tablet, Take 200 mg by mouth 2 times daily., Disp: , Rfl: levothyroxine (Synthroid, Levoxyl) 75 MCG tablet, Take by mouth every morning (before breakfast)., Disp: , Rfl: losartan (Cozaar) 25 MG tablet, Take by mouth., Disp: , Rfl: magnesium oxide (Mag-Ox) 400 mg tablet, 400 mg daily., Disp: , Rfl: meclizine (Antivert) 12.5 MG tablet, Take 12.5 mg by mouth 3 times daily as needed for dizziness., Disp: , Rfl: Multiple Vitamin (multivitamin) capsule, Take 1 capsule by mouth daily., Disp: , Rfl: Multiple Vitamins-Minerals (PRESERVISION AREDS PO), Take by mouth., Disp: , Rfl: nystatin (Mycostatin) 054001 UNIT/GM powder, Apply topically 2 times daily., Disp: , Rfl: polycarbophil (Fiber-Lax) 625 MG tablet, Take by mouth daily., Disp: , Rfl: polyethylene glycol, PEG, 3350 (Miralax) 17 g packet, Take by mouth., Disp: , Rfl: prednisoLONE sodium phosphate (Inflamase Forte) 1 % ophthalmic solution, 1 drop in the morning and 1 drop at noon and 1 drop in the evening and 1 drop before bedtime., Disp: , Rfl: promethazine (Phenergan) 25 MG tablet, Take by mouth., Disp: , Rfl: RABEprazole (Aciphex) 20 MG EC tablet, Take by mouth. Do not crush, chew, or split., Disp: , Rfl: rosuvastatin (Crestor) 5 MG tablet, Take 5 mg by mouth daily., Disp: , Rfl: sucralfate (Carafate) 1 g tablet, Take by mouth 4 times daily (before meals and nightly)., Disp: , Rfl: tiZANidine (Zanaflex) 4 MG capsule, Take 4 mg by mouth 3 times daily., Disp: , Rfl: tiZANidine (Zanaflex) 6 MG capsule, Take by mouth 3 times daily., Disp: , Rfl: triamcinolone (Kenalog) 0.1 % cream, Apply topically 2 times daily., Disp: , Rfl: valbenazine tosylate (Ingrezza) 40 MG capsule, Take 1 capsule (40 mg) by mouth daily., Disp: 30 capsule, Rfl: 11 VITAMIN D PO, Take by mouth., Disp: , Rfl: Rimegepant Sulfate (Nurtec) 75 MG tablet dispersible, Take 1 tablet (75 mg) by mouth every other day., Disp: 16 tablet, Rfl: 3 Allergies: Baclofen; Ciclesonide; Erythromycin; Fentanyl; Imipramine; Lubiprostone; Ondansetron; Oxycodone; Oxymorphone; Pregabalin; Topiramate; Aspartame; Levofloxacin; Onabotulinumtoxina; Penicillins; Antihistamines, chlorpheniramine-type; Ascorbic acid; Botulinum toxin type a; Bupropion; Buspirone; Capsaicin; Carbamazepine; Cat dander; Celecoxib; Dog epithelium (canis lupus familiaris); Duloxetine; Dust mite extract; Erythromycin base; Fluvoxamine; Gabapentin; Horse protein; Ibuprofen; Iron polysaccharide; Lurasidone; Nsaids; Propantheline; Pseudoephedrine; Qulipta [atogepant]; Saccharin; Sulfamethoxazole-trimethoprim; Tetracycline; Trimethoprim; Venlafaxine; Venlafaxine hcl; Wound dressing adhesive; Ziprasidone; Cefaclor; Cephalexin; Ciprofloxacin; Codeine; Daucus carota; Diphenhydramine; Dog epithelium; Doxepin; Hydromorphone; Candor; Molds & smuts; Onabotulinumtoxina (cosmetic); Pollen extract; Sertraline; and Sulfa antibiotics Social History: Social History Socioeconomic History Marital status: Single Spouse name: Not on file Number of children: Not on file Years of education: Not on file Highest education level: Not on file Occupational History Not on file Tobacco Use Smoking status: Never Smokeless tobacco: Never Vaping Use Vaping status: Never Used Substance and Sexual Activity Alcohol use: Yes Drug use: Not on file Sexual activity: Not on file Other Topics Concern Not on file Social History Narrative Not on file Social Drivers of Health Financial Resource Strain: Not on file Food Insecurity: Not on file Transportation Needs: Not on file Physical Activity: Not on file Stress: Not on file Social Connections: Not on file Intimate Partner Violence: Not on file Housing Stability: Not on file Family History: Family History Problem Relation Name Age of Onset Alcohol abuse Mother Heart disease Sister Bipolar disorder Mother Stroke Sister Cancer Brother Emphysema Father REVIEW OF SYSTEMS: Review of Systems Constitutional: Negative for appetite change, chills, diaphoresis, fever and unexpected weight change. HENT: Negative for dental problem and mouth sores. Eyes: Negative for discharge and itching. Respiratory: Negative for chest tightness. Cardiovascular: Negative for chest pain and leg swelling. Gastrointestinal: Negative for rectal pain and vomiting. Endocrine: Negative for polydipsia, polyphagia and polyuria. Genitourinary: Negative for decreased urine volume, flank pain and genital sores. Musculoskeletal: Negative for arthralgias. Skin: Negative for color change. Allergic/Immunologic: Negative for food allergies and immunocompromised state. Neurological: Positive for headaches. Abnormal movements Gait disorder Hematological: Negative for adenopathy. Does not bruise/bleed easily. Psychiatric/Behavioral: Negative for agitation, behavioral problems, decreased concentration, sleepdisturbance and suicidal ideas. PHYSICAL EXAM: Vitals: BP 126/77 (BP Location: Right arm, Patient Position: Sitting, BP Cuff Size: Adult) Pulse 64 Ht 5' 2" (1.575 m) Wt 182 lb 3.2 oz (82.6 kg) BMI 33.32 kg/m General Appearance: Patient is in no apparent distress. Head is normocephalic, atraumatic Cardiovascular: Regular rate and rhythm. No heart murmurs. No carotid bruit Neurologic: Mentation: Alert and oriented x 3 to person, place and time. Speech and Language: Speech and language normal Concentration and Attention: Concentration normal Memory: Memory grossly normal Fund of Knowledge: Fund of knowledge normal Cranial Nerves: II, III, IV, V, , VII, VIII, IX, X, XI, XII tested and were examined including fundoscopic exam (optic discs) and visual field to confrontation. She still has eye closure. It looks more involuntary today. Motor: Strength:5/5 in the arms/hands and proximal legs Alternating Movements: Normal Cogwheel Rigidity: None Tone: Tone is normal Tremor / Involuntary Movements: There are dystonic movements of the right arm/torso, but not as badas prior exams. Deep Tendon Reflexes: 1 out of 4 symmetrical in all four limbs. Sensory: Normal sensation upper and lower extremities Coordination: Normal coordination upper and lower extremities DATA EEG extended more than 1 hour Robby Napier MD 08/15/2024 6:03 PM EEG REPORT Patient Name: Steve Fagan : 1955 PROVIDER REQUESTING STUDY: Dr. Napier REASON FOR EXAM: syncope and collapse HISTORY: Steve Fagan is a 69 y.o. with history of syncope and collapse MEDICATIONS: Current Outpatient Medications: Acetaminophen (TYLENOL 8 HOUR PO), Take by mouth., Disp: , Rfl: albuterol (2.5 MG/3ML) 0.083% nebulizer solution, , Disp: , Rfl: ammonium lactate (Amlactin) 12 % cream, APPLY TO ELBOWS ONCE A DAY, Disp: , Rfl: aspirin 81 MG EC tablet, Take 1 tablet by mouth daily., Disp: , Rfl: Atogepant (Qulipta) 30 MG tablet, Take 1 tablet by mouth daily., Disp: 90 tablet, Rfl: 3 BUDESONIDE IN, Inhale., Disp: , Rfl: Calcium Carbonate-Vitamin D 500-5 MG-MCG tablet, Take by mouth., Disp: , Rfl: carboxymethylcellulose (Artificial Tears) 1 % ophthalmic solution, 1 drop 3 times daily., Disp: , Rfl: cetirizine (ZyrTEC) 10 MG tablet, Take by mouth., Disp: , Rfl: clopidogrel (Plavix) 75 MG tablet, Take by mouth daily., Disp: , Rfl: Cyanocobalamin (B-12) 1000 MCG sublingual tablet, Place under the tongue., Disp: , Rfl: Deutetrabenazine ER (Austedo XR) 30 MG tablet sustained-release 24 hour, Take 1 tablet by mouth every morning. Do not start before July 27, 2024., Disp: 90 tablet, Rfl: 2 Deutetrabenazine ER (Austedo XR) 30 MG tablet sustained-release 24 hour, Take 1 tablet by mouth daily., Disp: 30 tablet, Rfl: 11 diazePAM (Valium) 10 MG tablet, Take 1 tablet (10 mg) by mouth Once for 1 dose. 2 hours prior to the MRI, Disp: 1 tablet, Rfl: 0 Diclofenac Sodium (Voltaren) 1 % gel, Apply topically 2 times daily., Disp: , Rfl: ferrous sulfate 325 (65 Fe) MG tablet, Take 325 mg by mouth daily (with breakfast)., Disp: , Rfl: fluticasone (Flonase) 50 MCG/ACT nasal spray, Administer 1 spray into each nostril daily. Shake gently. Before first use, prime pump. After use, clean tip and replace cap., Disp: , Rfl: FORMOTEROL FUMARATE IN, Inhale., Disp: , Rfl: gabapentin (Neurontin) 400 MG capsule, Take 400 mg by mouth 3 times daily., Disp: , Rfl: HYDROcodone-acetaminophen ([place]) 5-325 MG tablet, , Disp: , Rfl: hydrocortisone 2.5 % cream, Apply topically 2 times daily., Disp: , Rfl: hydrOXYzine HCl (Atarax) 25 MG tablet, Take by mouth., Disp: , Rfl: ibandronate (Boniva) 150 MG tablet, Take 150 mg by mouth every 30 (thirty) days. Take in morning with full glass of water on an empty stomach. No food, drink, meds, or lying down for 60 minutes after., Disp: , Rfl: lactase (Lactaid) 3000 units tablet, Take 3,000 Units by mouth in the morning and 3,000 Units at noon and 3,000 Units in the evening. Take with meals., Disp: , Rfl: lamoTRIgine (LAMICTAL PO), Take 300 mg by mouth daily., Disp: , Rfl: lamoTRIgine (LaMICtal) 200 MG tablet, Take 200 mg by mouth 2 times daily., Disp: , Rfl: levothyroxine (Synthroid, Levoxyl) 75 MCG tablet, Take by mouth every morning (before breakfast)., Disp: , Rfl: losartan (Cozaar) 25 MG tablet, Take by mouth., Disp: , Rfl: magnesium oxide (Mag-Ox) 400 mg tablet, 400 mg daily., Disp: , Rfl: meclizine (Antivert) 12.5 MG tablet, Take 12.5 mg by mouth 3 times daily as needed for dizziness., Disp: , Rfl: Multiple Vitamin (multivitamin) capsule, Take 1 capsule by mouth daily., Disp: , Rfl: nystatin (Mycostatin) 338691 UNIT/GM powder, Apply topically 2 times daily., Disp: , Rfl: polycarbophil (Fiber-Lax) 625 MG tablet, Take by mouth daily., Disp: , Rfl: polyethylene glycol, PEG, 3350 (Miralax) 17 g packet, Take by mouth., Disp: , Rfl: prednisoLONE sodium phosphate (Inflamase Forte) 1 % ophthalmic solution, 1 drop in the morning and 1 drop at noon and 1 drop in the evening and 1 drop before bedtime., Disp: , Rfl: promethazine (Phenergan) 25 MG tablet, Take by mouth., Disp: , Rfl: RABEprazole (Aciphex) 20 MG EC tablet, Take by mouth. Do not crush, chew, or split., Disp: , Rfl: rosuvastatin (Crestor) 5 MG tablet, Take 5 mg by mouth daily., Disp: , Rfl: sucralfate (Carafate) 1 g tablet, Take by mouth 4 times daily (before meals and nightly)., Disp: , Rfl: tiZANidine (Zanaflex) 4 MG capsule, Take 4 mg by mouth 3 times daily., Disp: , Rfl: tiZANidine (Zanaflex) 6 MG capsule, Take by mouth 3 times daily., Disp: , Rfl: triamcinolone (Kenalog) 0.1 % cream, Apply topically 2 times daily., Disp: , Rfl: valbenazine tosylate (Ingrezza) 40 MG capsule, Take 1 capsule (40 mg) by mouth daily., Disp: 90 capsule, Rfl: 1 VITAMIN D PO, Take by mouth., Disp: , Rfl: TECHNICAL ASPECTS: This routine scalp EEG study without video was carried out. Scalp electrodes were positioned in person by an x ray technologist, following patient education, according to the 10-20 International system of electrode placement and maintained for integrity and quality of the recording. EEG data with video was recorded continuously and digitally stored. The x ray technologist reviewed all automated detections and manual events and prepared the data for archiving and provider review. Referential and bipolar montages were used for review. The recording lasted for over 61.5 minutes. TECHNOLOGIST NOTES: There was no history of skull defect. BACKGROUND ACTIVITY: Posterior background activity: A continuous organized and well-modulated 7 Hz rhythm was seen symmetrically over the posterior head regions bilaterally. Beta range: Fronto-centrally predominant beta range activity (15-25 Hz, 10-20 uV) was seen. Sleep: N2 sleep was reached as evidenced by the appearance of vertex waves and sleep spindles seen symmetrically over the central head regions bilaterally. Normal Variants: No normal variants were identified. SLOWING: Her waking background rhythm was never more than 7 Hz INTERICTAL EPILEPTIFORM ACTIVITY: No epileptiform activity was seen. ICTAL ACTIVITY: No ictal activity was seen. NON-EPILEPTIC EVENTS: There was movement, talking, and sweat artifacts during the recording. IMPRESSION: This is a mildly abnormal awake and sleep EEG. Her waking background rhythm is mildly slower than normal. 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 FINDINGS: Acute findings: No recent infarct, intracranial hemorrhage, or extra-axial fluid collection. Mass: None. No abnormal brain parenchymal or leptomeningeal enhancement. Parenchyma/White Matter: No evidence for atrophy of the caudate nucleus is noted. Scattered patchy and beginning-confluent foci of nonspecific T2/FLAIR hyperintensity in the supratentorial white matter, most likely secondary to chronic small vessel ischemic disease. Ventricles and sulci: Moderate generalized brain parenchymal volume loss with proportionate ventricular enlargement. Skull base: Normal size and morphology of the pituitary gland. No suprasellar mass. Normal positionof the cerebellar tonsils. Vessels: The major intracranial flow voids are preserved. Extracranial structures: Normal orbits. No extracranial soft tissue abnormalities. Sinuses/mastoids: Clear Bones: No pathologic marrow infiltration. IMPRESSION: 1. No acute intracranial abnormalities. No enhancing lesions. 2. Generalized brain parenchymal volume loss and moderate chronic microvascular ischemic changes inthe supratentorial white matter. Report Dictated on Electronically Signed By: Navarro Epps MD Electronically Signed Date/Time: 07/28/2024 10:57 AM EDT ASSESSMENT AND PLAN: Diagnosis Plan 1. Blepharospasm of both eyes 2. Tardive dyskinesia 3. Gait disturbance 4. Migraine without aura and without status migrainosus, not intractable 5. Obstructive sleep apnea Dr. Bergeron for botulinum toxin for blepharospasm. She cannot tolerate Ingrezza at doses necessary to control her movements. It is medically necessaryfor her to try [place]. Ingrezza at current dose. Nurte to replace the triptans which are failing and rizatriptan caused stroke- like dysarthria. As per pulmonary. I spent 40 minutes caring for this patient today, reviewing labs and records, seeing the patient, documenting in the record and arranging for studies. * Danny Mchugh LPN - 12/13/2024 3:00 PM EST [facility]. All boxes have the same LOT number and Expiration date LOT # [id number] Expiration date: 09/2027. documented in this [facility]02-11-2025 History of Present illness Narrative* Emilia Bergeron MD - 12/12/2024 12:30 PM EST Department of Neurological Sciences Initial Consult Note CHIEF COMPLAINT: Chief Complaint Patient presents with New Patient Bilateral blepharospasm Reason for Consult: Blepharospasm. HISTORY OF PRESENT ILLNESS: The patient is a 69 y.o. female who presents with history of chronic migraine without aura, intractable. Today patient presented to the neurology clinic referred by Dr. Napier because of frequent spasms bilaterally. Patient reports that she still have headaches almost on a daily basis. Patient have failed multiple medications the last 1 was Qulipta. In addition patient complaining of spasms and closing of both eyes especially with bright light. Patient reports that when she is exposed to bright light her eyes closed and she had difficulty opening. Patient also reports that when she has significant distress her eyes also tend to close. Apparently patient had dyskinesis in the facial muscles. P atient was started by Dr. Napier on Ingrezza and her dyskinesia has improved. Patient denied any improvement of her blepharospasm. Has been evaluated by ophthalmology and according to patient did not see any spasms of her eyes. Today during her visit to the neurology clinic she has 2 episodes of closing her eyes. Still complaining of headaches. He denied any other neurological deficits. Patient carries a diagnosis of bipolar disorder and she has been on antipsychotics. In addition patient have astroke in 2020 at [facility]. Patient is in a wheelchair because of her cerebral palsy. Past Medical History: Past Medical History: Diagnosis Date Anxiety Asthma Bipolar 1 disorder ([facility]) Bipolar depression ([facility]) ([facility]) Cerebral palsy ([facility]) Cervical spine degeneration COPD (chronic obstructive pulmonary disease) ([facility]) Dysphasia Gait abnormality GERD (gastroesophageal reflux disease) Hypercholesteremia Hyperreflexia Hypoglycemia Hypothyroidism IBS (irritable bowel syndrome) Myalgia Myositis Rhinitis Urinary incontinence Past Surgical History: Past Surgical History: Procedure Laterality Date APPENDECTOMY CARPAL TUNNEL RELEASE Left CHOLECYSTECTOMY KNEE ARTHROSCOPY NASAL SEPTUM SURGERY SHOULDER SURGERY Medications: Current Outpatient Medications Medication Sig Dispense Refill Acetaminophen (TYLENOL 8 HOUR PO) Take by mouth. albuterol (2.5 MG/3ML) 0.083% nebulizer solution albuterol 108 (90 Base) MCG/ACT inhaler Inhale 2 puffs every 6 hours as needed for wheezing. ammonium lactate (Amlactin) 12 % cream APPLY TO ELBOWS ONCE A DAY aspirin 81 MG EC tablet Take 1 tablet by mouth daily. BUDESONIDE IN Inhale. Calcium Carbonate-Vitamin D 500-5 MG-MCG tablet Take by mouth. carboxymethylcellulose (Artificial Tears) 1 % ophthalmic solution 1 drop 3 times daily. cetirizine (ZyrTEC) 10 MG tablet Take by mouth. clopidogrel (Plavix) 75 MG tablet Take by mouth daily. Cyanocobalamin (B-12) [address] under the tongue. Diclofenac Sodium (Voltaren) 1 % gel Apply topically 2 times daily. ferrous sulfate 325 (65 Fe) MG tablet Take 325 mg by mouth daily (with breakfast). fluticasone (Flonase) 50 MCG/ACT nasal spray Administer 1 spray into each nostril daily. Shake gently. Before first use, prime pump. After use, clean tip and replace cap. FORMOTEROL FUMARATE IN Inhale. gabapentin (Neurontin) 400 MG capsule Take 400 mg by mouth 3 times daily. HYDROcodone-acetaminophen ([place]) 5-325 MG tablet hydrocortisone 2.5 % cream Apply topically 2 times daily. hydrOXYzine HCl (Atarax) 25 MG tablet Take by mouth. ibandronate (Boniva) 150 MG tablet Take 150 mg by mouth every 30 (thirty) days. Take in morning with full glass of water on an empty stomach. No food, drink, meds, or lying down for 60 minutes after. lactase (Lactaid) 3000 units tablet Take 3,000 Units by mouth in the morning and 3,000 Units at noon and 3,000 Units in the evening. Take with meals. lamoTRIgine (LAMICTAL PO) Take 100 mg by mouth Nightly. lamoTRIgine (LaMICtal) 200 MG tablet Take 200 mg by mouth 2 times daily. levothyroxine (Synthroid, Levoxyl) 75 MCG tablet Take by mouth every morning (before breakfast). losartan (Cozaar) 25 MG tablet Take by mouth. magnesium oxide (Mag-Ox) 400 mg tablet 400 mg daily. meclizine (Antivert) 12.5 MG tablet Take 12.5 mg by mouth 3 times daily as needed for dizziness. Multiple Vitamin (multivitamin) capsule Take 1 capsule by mouth daily. Multiple Vitamins-Minerals (PRESERVISION AREDS PO) Take by mouth. nystatin (Mycostatin) 356024 UNIT/GM powder Apply topically 2 times daily. polycarbophil (Fiber-Lax) 625 MG tablet Take by mouth daily. polyethylene glycol, PEG, 3350 (Miralax) 17 g packet Take by mouth. prednisoLONE sodium phosphate (Inflamase Forte) 1 % ophthalmic solution 1 drop in the morning and 1drop at noon and 1 drop in the evening and 1 drop before bedtime. promethazine (Phenergan) 25 MG tablet Take by mouth. RABEprazole (Aciphex) 20 MG EC tablet Take by mouth. Do not crush, chew, or split. rosuvastatin (Crestor) 5 MG tablet Take 5 mg by mouth daily. sucralfate (Carafate) 1 g tablet Take by mouth 4 times daily (before meals and nightly). tiZANidine (Zanaflex) 4 MG capsule Take 4 mg by mouth 3 times daily. tiZANidine (Zanaflex) 6 MG capsule Take by mouth 3 times daily. triamcinolone (Kenalog) 0.1 % cream Apply topically 2 times daily. valbenazine tosylate (Ingrezza) 40 MG capsule Take 1 capsule (40 mg) by mouth daily. 30 capsule 11 VITAMIN D PO Take by mouth. diazePAM (Valium) 10 MG tablet Take 1 tablet (10 mg) by mouth Once for 1 dose. 2 hours prior to theMRI 1 tablet 0 No current facility-administered medications for this visit. Allergies: Baclofen; Ciclesonide; Erythromycin; Fentanyl; Imipramine; Lubiprostone; Ondansetron; Oxycodone; Oxymorphone; Pregabalin; Topiramate; Aspartame; Levofloxacin; Onabotulinumtoxina; Penicillins; Antihistamines, chlorpheniramine-type; Ascorbic acid; Botulinum toxin type a; Bupropion; Buspirone; Capsaicin; Carbamazepine; Cat dander; Celecoxib; Dog epithelium (canis lupus familiaris); Duloxetine; Dust mite extract; Erythromycin base; Fluvoxamine; Gabapentin; Horse protein; Ibuprofen; Iron polysaccharide; Lurasidone; Nsaids; Propantheline; Pseudoephedrine; Qulipta [atogepant]; Saccharin; Sulfamethoxazole-trimethoprim; Tetracycline; Trimethoprim; Venlafaxine; Venlafaxine hcl; Wound dressing adhesive; Ziprasidone; Cefaclor; Cephalexin; Ciprofloxacin; Codeine; Daucus carota; Diphenhydramine; Dog epithelium; Doxepin; Hydromorphone; Candor; Molds & smuts; Onabotulinumtoxina (cosmetic); Pollen extract; Sertraline; and Sulfa antibiotics Social History: Social History Socioeconomic History Marital status: Single Spouse name: Not on file Number of children: Not on file Years of education: Not on file Highest education level: Not on file Occupational History Not on file Tobacco Use Smoking status: Never Smokeless tobacco: Never Vaping Use Vaping status: Never Used Substance and Sexual Activity Alcohol use: Yes Drug use: Not on file Sexual activity: Not on file Other Topics Concern Not on file Social History Narrative Not on file Social Drivers of Health Financial Resource Strain: Not on file Food Insecurity: Not on file Transportation Needs: Not on file Physical Activity: Not on file Stress: Not on file Social Connections: Not on file Intimate Partner Violence: Not on file Housing Stability: Not on file Family History: Family History Problem Relation Name Age of Onset Alcohol abuse Mother Heart disease Sister Bipolar disorder Mother Stroke Sister Cancer Brother Emphysema Father REVIEW OF SYSTEMS: Review of Systems Constitutional: Negative for appetite change, chills, diaphoresis, fever and unexpected weight change. HENT: Negative for dental problem and mouth sores. Eyes: Negative for discharge and itching. Respiratory: Negative for chest tightness. Cardiovascular: Negative for chest pain and leg swelling. Gastrointestinal: Negative for rectal pain and vomiting. Endocrine: Negative for polydipsia, polyphagia and polyuria. Genitourinary: Negative for decreased urine volume, flank pain and genital sores. Musculoskeletal: Negative for arthralgias. Skin: Negative for color change. Allergic/Immunologic: Negative for food allergies and immunocompromised state. Neurological: Positive for headaches. Abnormal movements Gait disorder Hematological: Negative for adenopathy. Does not bruise/bleed easily. Psychiatric/Behavioral: Negative for agitation, behavioral problems, decreased concentration, sleepdisturbance and suicidal ideas. PHYSICAL EXAM: Vitals: BP 130/78 Ht 5' 2" (1.575 m) Wt 171 lb (77.6 kg) BMI 31.28 kg/m Physical Exam General Appearance: Patient is in no apparent distress. Head is normocephalic, atraumatic Cardiovascular: Regular rate and rhythm. No heart murmurs. No carotid bruit Neurologic: Mentation: Alert and oriented x 3 to [address], [address] and time. Speech and Language: Speech and language normal Concentration and Attention: Concentration normal Memory: Memory grossly normal Fund of Knowledge: Fund of knowledge normal Cranial Nerves: II, III, IV, V, , VII, VIII, IX, X, XI, XII tested and were examined including fundoscopic exam (optic discs) and visual field to confrontation. She still has eye closure. It looks more involuntary today. Motor: Strength:Strength exam is difficult due to pain in her shoulders and braces on her ankles. She appears to have equal and symmetric strength. Alternating Movements: Normal Cogwheel Rigidity: None Tone: Tone is normal Tremor / Involuntary Movements: There is a combination of choreiform movements of the right arm/torso, some dyskinesias, but these are far better than the last exam. Deep Tendon Reflexes: 1 out of 4 symmetrical in all four limbs. Sensory: Normal sensation upper and lower extremities Coordination: Normal coordination upper and lower extremities Gait and Station: Station is normal. Gait is abnormal. D Impression: Diagnosis Plan 1. Blepharospasm of both eyes [facility] Neurology Plan: 1. Patient appeared to have blepharospasm affecting both eyes triggered mainly by bright light we are going to consider patient for Botox injections into both orbicularis oculi. Since patient's symptoms could be still functional while going to start with a small doses of Botox patient will receive 2 units of Botox in the superior eyelid and 2 units of Botox in the inferior eyelid. We will inject also patient forehead. This first time we will be using a free sample from [employer] with 100 units thank you 2. Patient will return to the neurology clinic in 2 to 3 weeks for Botox injection. Thank you Emilia Bergeron MD documented in this [facility]12-20-2024 Hospital Discharge instructions Patient Education 10/20/2024 13:15:54 Urinary Tract Infections in Women Urinary Tract Infections in Women Urinary tract infections (UTIs) are most often caused by bacteria. These bacteria enter the urinarytract. The bacteria may come from outside the body. Or they may travel from the skin outside the rectum or vagina into the urethra. Female anatomy makes it easy for bacteria from the bowel to enter awoman s urinary tract, which is the most common source of UTI. This means women develop UTIs more often than men. Pain in or around the urinary tract is a common UTI symptom. But the only way to knowfor sure if you have a UTI for the healthcare provider to test your urine. The two tests that may be done are the urinalysis and urine culture. Types of UTIs Cystitis. A bladder infection (cystitis) is the most common UTI in women. You may have urgent or frequent urination. You may also have pain, burning when you urinate, and bloody urine. Urethritis. This is an inflamed urethra, which is the tube that carries urine from the bladder to outside the body. You may have lower stomach or back pain. You may also have urgent or frequent urination. Pyelonephritis. This is a kidney infection. If not treated, it can be serious and damage your kidneys. In severe cases, you may need to stay in the hospital. You may have a fever and lower back pain. Medicines to treat a UTI Most UTIs are treated with antibiotics. These kill the bacteria. The length of time you need to take them depends on the type of infection. It may be as short as 3 days. If you have repeated UTIs, you may need a low-dose antibiotic for several months. Take antibiotics exactly as directed. Don t stop taking them until all of the medicine is gone. If you stop taking the antibiotic too soon, the infection may not go away. You may also develop a resistance to the antibiotic. This can make it much harder to treat. Lifestyle changes to treat and prevent UTIs The lifestyle changes below will help get rid of your UTI. They may also help prevent future UTIs. Drink plenty of fluids. This includes water, juice, or other caffeine-free drinks. Fluids help flush bacteria out of your body. Empty your bladder. Always empty your bladder when you feel the urge to urinate. And always urinatebefore going to sleep. Urine that stays in your bladder can lead to infection. Try to urinate before and after sex as well. Practice good personal hygiene. Wipe yourself from front to back after using the toilet. This helpskeep bacteria from getting into the urethra. Use condoms during sex. These help prevent UTIs caused by sexually transmitted bacteria. Also don'tuse spermicides during sex. These can increase the risk for UTIs. Choose other forms of control instead. For women who tend to get UTIs after sex, a low-dose of a preventive antibiotic may be used. Be sure to discuss this option with your healthcare provider. Follow up with your healthcare provider as directed. He or she may test to make sure the infection has cleared. If needed, more treatment may be started. [id number] [employer] [address] [place] [address]. All rights reserved. This information is not intended as a substitute for professional medical care. Always follow yourhealthcare professional's instructions. 10/20/2024 13:15:45 Hypertension, Established Established High Blood Pressure High blood pressure (hypertension) is a chronic disease. Often, healthcare providers don t know what causes it. But it can be caused by certain health conditions and medicines. If you have high blood pressure, you may not have any symptoms. If you do have symptoms, they may include headache, dizziness, changes in your vision, chest pain, and shortness of breath. But even without symptoms, high blood pressure that s not treated raises your risk for heart attack, heart failure, and stroke. High blood pressure is a serious health risk and shouldn t be ignored. Blood pressure measurements are given as 2 numbers. Systolic blood pressure is the upper number. This is the pressure when the heart contracts. Diastolic blood pressure is the lower number. This is the pressure when the heart relaxes between beats. You will see your blood pressure readings written together. For example, a person with a systolic pressure of 118 and a diastolic pressure of 78 will have 118/78 written in the medical record. Blood pressure is categorized as normal, elevated, or stage 1 or stage 2 high blood pressure: Normal blood pressure is systolic of less than 120 and diastolic of less than 80 (120/80) Elevated blood pressure is systolic of 120 to 129 and diastolic less than 80 Stage 1 high blood pressure is systolic is 130 to 139 or diastolic between 80 to 89 Stage 2 high blood pressure is when systolic is 140 or higher or the diastolic is 90 or higher Home care If you have high blood pressure, follow these home care guidelines to help lower your blood pressure. If you are taking medicines for high blood pressure, these methods may reduce or end your need for medicines in the future. Start a weight-loss program if you are overweight. Cut back on how much salt you get in your diet. Here s how to do this: oDon t eat foods that have a lot of salt. These include olives, pickles, smoked meats, and salted potato chips. oDon t add salt to your food at the table. oUse only small amounts of salt when cooking. Start an exercise program. Talk with your healthcare provider about the type of exercise program that would be best for you. It doesn't have to be hard. Even brisk walking for 20 minutes 3 times a week is a good form of exercise. Don t take medicines that stimulate the heart. This includes many cjty-kda-gqaqopa cold and sinus decongestant pills and sprays, as well as diet pills. Check the warnings about high blood pressure onthe label. Before buying any nnkp-ibd-cvgjfhk medicines or supplements, always ask the pharmacist about the product's potential interaction with your high blood pressure and your high blood pressure medicines. Stimulants such as amphetamine or cocaine could be deadly for someone with high blood pressure. Never take these. Limit how much caffeine you get in your diet. Switch to caffeine-free products. Stop smoking. If you are a long-time smoker, this can be hard. Talk to your healthcare provider about medicines and nicotine replacement options to help you. Also, enroll in a stop-smoking program tomake it more likely that you will quit for good. Learn how to handle stress. This is an important part of any program to lower blood pressure. Learnabout relaxation methods like meditation, yoga, or biofeedback. If your provider prescribed medicines, take them exactly as directed. Missing doses may cause your blood pressure get out of control. If you miss a dose or doses, check with your healthcare provider or pharmacist about what to do. Consider buying an automatic blood pressure machine to check your blood pressure at home. Ask your provider for a recommendation. You can get one of these at most pharmacies. The [place] [employer] recommends the following guidelines for home blood pressure monitoring: Don't smoke or drink coffee for 30 minutes before taking your blood pressure. Go to the bathroom before the test. Relax for 5 minutes before taking the measurement. Sit with your back supported (don't sit on a couch or soft chair); keep your feet on the floor uncrossed. Place your arm on a solid flat surface (like a table) with the upper part of the arm at heartlevel. Place the middle of the cuff directly above the bend of the elbow. Check the monitor's instruction manual for an illustration. Take multiple readings. When you measure, take 2 to 3 readings one minute apart and record all of the results. Take your blood pressure at the same time every day, or as your healthcare provider recommends. Record the date, time, and blood pressure reading. Take the record with you to your next medical appointment. If your blood pressure monitor has a built-in memory, simply take the monitor with you to your next appointment. Call your provider if you have several high readings. Don't be frightened by a single high blood pressure reading, but if you get several high readings, check in with your healthcare provider. Note: When blood pressure reaches a systolic (top number) of 180 or higher OR diastolic (bottom number) of 110 or higher, seek emergency medical treatment. Follow-up care You will need to see your healthcare provider regularly. This is to check your blood pressure and to make changes to your medicines. Make a follow-up appointment as directed. [facility] to the appointment. When to seek medical advice Call your healthcare provider right away if any of these occur: Blood pressure reaches a systolic (upper number) of 180 or higher OR a diastolic (bottom number) of110 or higher Chest pain or shortness of breath Severe headache Throbbing or rushing sound in the ears Nosebleed Sudden severe pain in your belly (abdomen) Extreme drowsiness, confusion, or fainting Dizziness or spinning sensation (vertigo) Weakness of an arm or leg or one side of the face You have problems speaking or seeing [id number] [employer] [address] [place] [address]. All rights reserved. This information is not intended as a substitute for professional medical care. Always follow yourhealthcare professional's instructions. Follow Up Care 10/20/2024 11:37:16 With:MARCIO SELF MD Address: [address] [facility] [place] [address]- When:2-4 days [facility] 12-20-2024 Note Discharge Instructions Thank you for allowing [facility] to assist you with your healthcare needs. The following is importantdischarge information regarding your hospital visit. Diagnosis from Today's Visit Elevated blood pressure reading What to Do Next Instructions from Your Care Team No qualifying data available. Post Acute Orders No qualifying data available. You Need to Schedule the Following Appointments Follow Up with MARCIO SELF MD When:Within 2-4 days Where:[address] [facility] [place] [address]- Allergies Alvesco difficulty breathing Amitiza Vomiting Animal Dander unknown Aspartame Itching Benadryl Benedryl Allergy Sinus break out Botox tongue feels itchy Carrots Itching Dust unknown Geodon Movement Iron "deathly ill" Latuda Leg pain Levaquin itching Lyrica unable to open eyes Mold unknown Qulipta Nausea Topamax hallucinations Zoloft baclofen Vomiting codeine unknown erythromycin chest pain fentaNYL Vomiting imipramine Visual hallucinations, Urticaria lithium oxyCODONE Vomiting oxyMORphone Vomiting, Abdominal pain penicillin rash propantheline Unknown seasonal enviromental sertraline Vomiting, Vomiting, Upset stomach, Dizziness sulfa drug nauseated Medications Please ask your primary doctor or pharmacist before taking any other medication not listed, including over the counter drugs, herbal medications, vitamins and or supplements as they may interact withur home medications. What How Much When Why Instructions Last Dose New azithromycin (Azithromycin 5 Day Dose Pack 250 mgoral tablet) Take two (2) tablets day 1-then one (1) tablet by mouth Every day Duration: 5 Days Pickup at [facility]/pharmacy #[id number] New cephalexin (cephalexin 500 mg oral capsule) 1 cap by mouth Every 12 hours Duration: 7 Days Pickup at [facility]/pharmacy #[id number] New cephalexin (cephalexin 500 mg oral capsule) 1 cap by mouth Every 12 hours Duration: 7 Days Printed Prescription New doxycycline (doxycycline hyclate 100 mg oral capsule) 1 cap by mouth Two (2) times a day Duration: 7 Days Printed Prescription Unchanged acetaminophen (Acetaminophen Extra Strength Gelcaps 500 mg) 2 tab(s) by mouth Two (2) times a day as needed for as needed for pain Duration: 30 Days Unchanged acetaminophen-hydrocodone ([place] 325- 5 mg oral tablet) 1 tab(s) by mouth Three (3) times a day Osteoarthritis of left shoulder Fibromyalgia Duration: 30 Days Unchanged albuterol (ProAir HFA MDI (90 mcg/ inh) inhalation aerosol) 2 puff(s) by inhalation Four (4) times a day as needed for as needed for wheezing Duration: 30 Days Unchanged albuterol-ipratropium (albuterol-ipratropium 2.5 mg-0.5 mg/ 3 mL inhalation solution) Nebulized inhalation Four (4) times a day Unchanged ammonium lactate topical (ammonium lactate 12% topical cream) Topical Two (2) times a day prn Unchanged aspirin (Aspirin Enteric Coated 81 mg oral delayed release tablet) See instructions TAKE ONE TABLET BY MOUTH EVERY DAY Unchanged budesonide (Pulmicort Respules 0.5 mg/ 2 mL inhalation suspension) 2 Milliliter by inhalation Once a day Unchanged calcium-vitamin D (Os-Satnam Calcium+D3 500 mg-5 mcg (200 intl units) oral tablet) 1 tab(s) by mouth Two (2) times a day Unchanged cetirizine (Zyrtec 10 mg oral tablet) 1 tab(s) by mouth Once a day Unchanged clopidogrel (clopidogrel 75 mg oral tablet) 1 tab(s) by mouth Once a day Unchanged cyanocobalamin (cyanocobalamin 1000 mcg/ mL injectable solution) See instructions 1 mL Intramuscular 30 day(s) Once a month Unchanged diclofenac topical (diclofenac 1% topical gel) 8 gram(s) Topical Four (4) times a day Knee pain, bilateral Bilateral shoulder pain Lumbar degenerative disc disease Duration: 30 Days not to exceed 32 grams/ day Unchanged docusate (Colace 100 mg oral capsule) 1 cap by mouth Once a day as needed for as needed for constipation Constipation Unchanged ferrous sulfate (ferrous sulfate 325 mg (65 mg elemental iron) oral delayed release tablet) 1 tab(s) by mouth Once a day Unchanged fluticasone nasal (fluticasone proprionate NASAL 50 mcg/ spray) 2 spray(s) in the nose Once a day Duration: 90 Days Unchanged formoterol (formoterol 20 mcg/ 2 mL inhalation solution) 2 Milliliter by inhalation Two (2) times a day Osteoporosis Back pain LINCARE Unchanged gabapentin (gabapentin 400 mg oral capsule) 1 cap by mouth Three (3) times a day Neuropathy Duration: 90 Days Unchanged hydrocortisone topical (hydrocortisone 2.5% topical cream) See instructions Topical BID PRN Unchanged ibandronate (Boniva 150 mg oral tablet) 1 tab(s) by mouth Once a month Osteoporosis Back pain Unchanged lactase See instructions Unchanged lamoTRIgine (lamoTRIgine 200 mg oral tablet) 1 tab(s) by mouth Two (2) times a day Unchanged lamoTRIgine (lamoTRIgine 300 mg oral tablet, extended release) 1 tab(s) by mouth Daily at bedtime Unchanged levothyroxine (Synthroid 75 mcg (0.075 mg) oral tablet) 1 tab(s) by mouth Once a day Unchanged losartan (losartan 25 mg oral tablet) 1 tab(s) by mouth Once a day Duration: 30 Days Unchanged magnesium oxide (magnesium oxide 400 mg oral capsule) 1 cap by mouth Once a day Unchanged meclizine (meclizine 25 mg oral tablet) 0.5 tab(s) by mouth Two (2) times a day as needed for as needed for dizziness Duration: 30 Days Unchanged multivitamin (Multivitamin) 1 tab(s) by mouth Every day Unchanged nystatin topical (nystatin 100,000 units/ g topical powder) Topical Three (3) times a day Unchanged ocular lubricant (Artificial Tears ophthalmic solution) 1 Drops Both eyes Two (2) times a day as needed for as needed for dry eyes Unchanged polycarbophil (Fiberlax 625 mg oral tablet) 1 tab(s) by mouth Four (4) times a day Unchanged polyethylene glycol 3350 (MiraLax oral powder for reconstitution) 17 gram(s) by mouth Two (2) times a day Unchanged promethazine (promethazine 25 mg oral tablet) 1 tab(s) by mouth Every 6 hours as needed for for nausea/vomiting Duration: 30 Days Unchanged RABEprazole (RABEprazole 20 mg oral delayed release enteric coated tablet) 1 tab(s) by mouth Two (2) times a day Unchanged rosuvastatin (rosuvastatin 5 mg oral tablet) 1 tab(s) by mouth Once a day Cerebral palsy Vertigo Unchanged SUMAtriptan (SUMAtriptan 25 mg oral tablet) 1 tab(s) by mouth Once a day as needed for as needed for migraine headache 1 tab onset , may repeat in 2 hrs. MAX 8 tab(s)/ 24hrs Unchanged tiZANidine (tiZANidine 2 mg oral tablet) 2-3 tabs by mouth Two (2) times a day Asterixis Hypothyroidism Duration: 30 Days 4 mg at noon, 6 mg at bedtime Unchanged valbenazine (Ingrezza 40 mg oral capsule) 1 cap by mouth Once a day Pharmacy Information [facility]/pharmacy #[id number]: [address] [place], [place] [phone] Please take this list to your next doctor s visit. Bring all medications you take, including over the counter medications, herbals and other supplements with you to your doctor s visit. Patients and families are reminded to discard old lists and to update any records with all medication providers or retail pharmacies. Education Materials Urinary Tract Infections in Women Urinary tract infections (UTIs) are most often caused by bacteria. These bacteria enter the urinarytract. The bacteria may come from outside the body. Or they may travel from the skin outside the rectum or vagina into the urethra. Female anatomy makes it easy for bacteria from the bowel to enter awoman s urinary tract, which is the most common source of UTI. This means women develop UTIs more often than men. Pain in or around the urinary tract is a common UTI symptom. But the only way to knowfor sure if you have a UTI for the healthcare provider to test your urine. The two tests that may be done are the urinalysis and urine culture. Types of UTIs Cystitis. A bladder infection (cystitis) is the most common UTI in women. You may have urgent or frequent urination. You may also have pain, burning when you urinate, and bloody urine. Urethritis. This is an inflamed urethra, which is the tube that carries urine from the bladder to outside the body. You may have lower stomach or back pain. You may also have urgent or frequent urination. Pyelonephritis. This is a kidney infection. If not treated, it can be serious and damage your kidneys. In severe cases, you may need to stay in the hospital. You may have a fever and lower back pain. Medicines to treat a UTI Most UTIs are treated with antibiotics. These kill the bacteria. The length of time you need to take them depends on the type of infection. It may be as short as 3 days. If you have repeated UTIs, you may need a low-dose antibiotic for several months. Take antibiotics exactly as directed. Don t stop taking them until all of the medicine is gone. If you stop taking the antibiotic too soon, the infection may not go away. You may also develop a resistance to the antibiotic. This can make it much harder to treat. Lifestyle changes to treat and prevent UTIs The lifestyle changes below will help get rid of your UTI. They may also help prevent future UTIs. Drink plenty of fluids. This includes water, juice, or other caffeine-free drinks. Fluids help flush bacteria out of your body. Empty your bladder. Always empty your bladder when you feel the urge to urinate. And always urinatebefore going to sleep. Urine that stays in your bladder can lead to infection. Try to urinate before and after sex as well. Practice good personal hygiene. Wipe yourself from front to back after using the toilet. This helpskeep bacteria from getting into the urethra. Use condoms during sex. These help prevent UTIs caused by sexually transmitted bacteria. Also don'tuse spermicides during sex. These can increase the risk for UTIs. Choose other forms of control instead. For women who tend to get UTIs after sex, a low-dose of a preventive antibiotic may be used. Be sure to discuss this option with your healthcare provider. Follow up with your healthcare provider as directed. He or she may test to make sure the infection has cleared. If needed, more treatment may be started. [id number] [employer] [address] [place], [place] [id number]. All rights reserved. This information is not intended as a substitute for professional medical care. Always follow yourhealthcare professional's instructions. Established High Blood Pressure High blood pressure (hypertension) is a chronic disease. Often, healthcare providers don t know what causes it. But it can be caused by certain health conditions and medicines. If you have high blood pressure, you may not have any symptoms. If you do have symptoms, they may include headache, dizziness, changes in your vision, chest pain, and shortness of breath. But even without symptoms, high blood pressure that s not treated raises your risk for heart attack, heart failure, and stroke. High blood pressure is a serious health risk and shouldn t be ignored. Blood pressure measurements are given as 2 numbers. Systolic blood pressure is the upper number. This is the pressure when the heart contracts. Diastolic blood pressure is the lower number. This is the pressure when the heart relaxes between beats. You will see your blood pressure readings written together. For example, a person with a systolic pressure of 118 and a diastolic pressure of 78 will have 118/78 written in the medical record. Blood pressure is categorized as normal, elevated, or stage 1 or stage 2 high blood pressure: Normal blood pressure is systolic of less than 120 and diastolic of less than 80 (120/80) Elevated blood pressure is systolic of 120 to 129 and diastolic less than 80 Stage 1 high blood pressure is systolic is 130 to 139 or diastolic between 80 to 89 Stage 2 high blood pressure is when systolic is 140 or higher or the diastolic is 90 or higher Home care If you have high blood pressure, follow these home care guidelines to help lower your blood pressure. If you are taking medicines for high blood pressure, these methods may reduce or end your need for medicines in the future. Start a weight-loss program if you are overweight. Cut back on how much salt you get in your diet. Here s how to do this: oDon t eat foods that have a lot of salt. These include olives, pickles, smoked meats, and salted potato chips. oDon t add salt to your food at the table. oUse only small amounts of salt when cooking. Start an exercise program. Talk with your healthcare provider about the type of exercise program that would be best for you. It doesn't have to be hard. Even brisk walking for 20 minutes 3 times a week is a good form of exercise. Don t take medicines that stimulate the heart. This includes many znse-khj-nluiydn cold and sinus decongestant pills and sprays, as well as diet pills. Check the warnings about high blood pressure onthe label. Before buying any cyuk-tdx-qmbirnv medicines or supplements, always ask the pharmacist about the product's potential interaction with your high blood pressure and your high blood pressure medicines. Stimulants such as amphetamine or cocaine could be deadly for someone with high blood pressure. Never take these. Limit how much caffeine you get in your diet. Switch to caffeine-free products. Stop smoking. If you are a long-time smoker, this can be hard. Talk to your healthcare provider about medicines and nicotine replacement options to help you. Also, enroll in a stop-smoking program tomake it more likely that you will quit for good. Learn how to handle stress. This is an important part of any program to lower blood pressure. Learnabout relaxation methods like meditation, yoga, or biofeedback. If your provider prescribed medicines, take them exactly as directed. Missing doses may cause your blood pressure get out of control. If you miss a dose or doses, check with your healthcare provider or pharmacist about what to do. Consider buying an automatic blood pressure machine to check your blood pressure at home. Ask your provider for a recommendation. You can get one of these at most pharmacies. The [place] [employer] recommends the following guidelines for home blood pressure monitoring: Don't smoke or drink coffee for 30 minutes before taking your blood pressure. Go to the bathroom before the test. Relax for 5 minutes before taking the measurement. Sit with your back supported (don't sit on a couch or soft chair); keep your feet on the floor uncrossed. Place your arm on a solid flat surface (like a table) with the upper part of the arm at heartlevel. Place the middle of the cuff directly above the bend of the elbow. Check the monitor's instruction manual for an illustration. Take multiple readings. When you measure, take 2 to 3 readings one minute apart and record all of the results. Take your blood pressure at the same time every day, or as your healthcare provider recommends. Record the date, time, and blood pressure reading. Take the record with you to your next medical appointment. If your blood pressure monitor has a built-in memory, simply take the monitor with you to your next appointment. Call your provider if you have several high readings. Don't be frightened by a single high blood pressure reading, but if you get several high readings, check in with your healthcare provider. Note: When blood pressure reaches a systolic (top number) of 180 or higher OR diastolic (bottom number) of 110 or higher, seek emergency medical treatment. Follow-up care You will need to see your healthcare provider regularly. This is to check your blood pressure and to make changes to your medicines. Make a follow-up appointment as directed. Bring the record of yourhome blood pressure readings to the appointment. When to seek medical advice Call your healthcare provider right away if any of these occur: Blood pressure reaches a systolic (upper number) of 180 or higher OR a diastolic (bottom number) of110 or higher Chest pain or shortness of breath Severe headache Throbbing or rushing sound in the ears Nosebleed Sudden severe pain in your belly (abdomen) Extreme drowsiness, confusion, or fainting Dizziness or spinning sensation (vertigo) Weakness of an arm or leg or one side of the face You have problems speaking or seeing 7142-7553 [employer]. [address] [place] [address], [place] [address]. All rights reserved. This information is not intended as a substitute for professional medical care. Always follow yourhealthcare professional's instructions. Additional Information VACCINATE! IT SAVES LIVES! Members of the community who have not yet received the COVID-19 vaccine and would like to receive it can visit one of [facility] vaccine clinics. There are many vaccine clinic locations within the [facility]. For locations and available times, please visit www.gettheshot.coronavirus.[place].gov/. It is important to note that some COVID mobile vaccine clinics are held outdoors and may be canceled in rainy or stormy conditions. To learn more about pediatric vaccinations (ages 5-11), we invite you to visit the [facility] webpage. https://www.[employer].org/pages/2697-Tbspo-Mbmslebclrz-Flszlahzow-Zkmzb-Vyf stions.htmlTo learn more about the COVID-19 vaccine, we invite you to visit the CDC website for a list of frequently asked questions. https://www.cdc.gov/coronavirus/2019-ncov/vaccines/faq.html [facility] Patient Portal Access Instructions: Stay connected with your healthcare team and access your personal medical information anytime with the [facility] Patient Portal. If you would like a full copy of your medical records please contact the [facility] Medical Records Department Wednesday through Wednesday between 8a.m. and 4:30p.m. Please follow the directions below to access the portal: 1.Access the email account you provided upon registration to the hospital.2.Look for an invitation email from [facility].3.Open the email and access the invitation link: Accept Invitation to [facility].Fill in the required matrinez to create your account. Sign into [email or web address] with your username and password that you created in the above steps to stay up to date. You can then view a summary of results, a summary of your visits, and the ability to download your summaries to your computer or send the information securely to a physician. Remember that your healthcare information is confidential, so carefully consider who you will allow to register on the [facility] Patient Portal for access to your information. You can also access the [facility] Patient Portal on the [employer] cullen. Simply click on "Health Records" under "[facility]" and then click on the [employer] logo. HOW TO SAFELY DISPOSE OF PRESCRIPTION MEDICATIONS Please use one of the following methods to safely dispose of your unused medications. 1.Use a drug disposal kit: the drug disposal pouch allows you to safely discard your old and unuseddrugs. Ask your nurse to give you one when you are discharged.2.Visit a local take-back location: Many local pharmacies and police departments have programs that collect old and unwanted prescriptiondrugs. Call your local pharmacy or go to http://HALFPOPS.FedTax/5X0Gl1z to find one close to you.3.Make use of household items: Use cat litter or old coffee grounds to dispose medications if other options arenot available. Mix your drugs with these household products, seal them in an airtight container andthrow it into the garbage. Call [facility]: [phone] to be sure your drugs can be disposed of in this way. Some medicines may require a different approach.4.Never flush your medications down the toilet. IF YOU HAVE BEEN PRESCRIBED AN OPIOIDS FOR PAIN If you have been prescribed an opioid (such as hydrocodone, oxycodone or morphine), it is critical to understand the possible side effects and risks of opioid pain medications. Even when taken as directed, opioids can have several side effects including: Tolerance, meaning you might need to take more of a medication for the same pain relief. Nausea, vomiting and/or constipation. Sleepiness, dizziness, dry mouth, confusion, depression or itching. Physical dependence, meaning you have withdrawal symptoms when a medication is stopped ? this can develop within a few days. KNOW YOUR RESPONSIBILITIES It is important to know exactly how much and how often to take the opioid pain medications you are prescribed. Never take opioids in higher amounts or more often than prescribed. Do not combine opioids with alcohol or other drugs that cause drowsiness, such as benzodiazepines, also known as benzos,including diazepam and alprazolam, muscle relaxants or sleep aids. Never sell or share prescriptionopioids. This is illegal. Store opioids in a secure place and out of reach of others (including children, family, friends and visitors). The last page(s) of this document has been signed and retained as a CHART COPY Signatures Patient Education Materials Urinary Tract Infections in Women Hypertension, Established Medication Leaflets My discharge plan and instructions have been reviewed and explained to me and I,GRACIA STEVE Valera understand my current condition and have read and understand these discharge instructions. I have received a written copy of the plan/instructions. If I have questions, I am aware that I should contact my doctor. 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 Cardiomediastinal silhouette is borderline prominent which may related to portable technique. Central pulmonary vascular congestion with interstitial pattern reflecting at least mild edema. Redemonstrated 6 mm right lower lobe calcification. Increased left retrocardiac opacification. Left costophrenic angle is obscured. Right costophrenic angle is sharp. No pneumothorax. No acute skeletal abnormality. Lower cervical spondylosis. Severe left glenohumeral joint degenerative change. Thoracic spine changes better visualized on CT chest dated 04/09/2023. IMPRESSION: Low lung volumes with hypoventilatory changes and vascular crowding. Pulmonary edema. Left retrocardiac opacity and obscuration of the left hemidiaphragm, atelectasis and or consolidation with without a superimposed small left pleural effusion. Interpreted by: Roque Perez Preliminary Report By: Roque Perez Electronically signed By Roque Perez Dictated Date: 10/20/2024 1:02:15 PM Prelim Date: 10/20/2024 1:04:52 PM Sign Date: 10/20/2024 1:04:52 PM Ordering Provider: TRINIDAD GARNICA [facility]12-20-2024 Note* Exam Date Time Procedure Performing Provider Status 10/20/24 12:03 PM EKG [ED AOH] - CV TRINIDAD GARNICA DO; Auth (Verified) ECG Final Report Sinus rhythm Probable left ventricular hypertrophy Compared to ECG at 07/19/2024 23:57:12 BORDERLINE ECG Electronic Signature: TRINIDAD GARNICA DO 10/20/2024 12:05:32 [facility]12-19-2024 Telephone encounter Note* Telephone Encounter - Danny Mchugh LPN - 10/19/2024 10:00 AM EST Call to Liz. Sutton informed of provider's message. Cher repeated back and verbalized understanding. Cher is questioning if there is a different medication patient can try for migraines. Please advise. [facility] [id number] Miscellaneous Notes* Telephone Encounter - Danny Mchugh LPN - 10/19/2024 10:00 AM EST Call to Liz. Sutton informed of provider's message. Cher repeated back and verbalized understanding. Cher is questioning if there is a different medication patient can try for migraines. Please advise. * Telephone Encounter - Danny Mchugh LPN - 10/18/2024 5:12 PM EST Call to Cher. No answer. * Telephone Encounter - Danny Mchugh LPN - 10/18/2024 5:06 PM EST Call to Yahir Magallon nurse. No answer. LM on VM. * Telephone Encounter - Danny Mchugh LPN - 10/18/2024 5:04 PM EST Call to Cher. No answer. LM on VM to call the office. * Telephone Encounter - Robby Napier MD - 10/18/2024 4:28 PM EST Please tell them that if she has not had rizatriptan for 12 hours or more since the last dose, grace may be having another issue like stroke or infection. If they think she may be having a stroke,they should send her to the ER. She should immediately stop the rizatriptan. * Telephone Encounter - Aditi Daley - 10/18/2024 3:11 PM EST Name of caller: KENIA Sutton Contact phone number: [phone] Relationship to Patient: Yahir Magallon Provider: Dr. Napier Practice:[facility] Neurology [place] Chief Complaint/Reason for Call: Cher states that the patient began taking Rizatriptan on 10/11/24 and it is the only new medication the patient has started. Cher states that today before lunch the patient was talking and began to slur her words, although, the patient did not take any of the medication today. Cher states that the patient says she is feeling drugged and sedated. Please advise. Cher states that she have noticed more involuntary movement in the past couple of days and she wouldlike to receive a call back to discuss Dr. Napier's advice and suggestions. Please advise. 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 Napier Practice: Neurology Chief Complaint/Reason for Call: Cher called in because they received Rizatriptan last evening from their pharmacy, and she she was confused since the patient is currently taking Sumatriptan. Advised that patient med was changed by Dr. Napier. Cher asks to please fax a new order for the Rizatriptan sothat they can give it to the patient, as they administer the medications. Please fax to [phone] att: Cher. Best time of day caller can be reached: any Patient advised that office/PCP has 24-48 business hours to return their call: n/a documented in this encounterSProvidence [id number] Telephone encounter Note* Telephone Encounter - Danny Mchugh LPN - 10/18/2024 5:12 PM EST Call to Cher. No answer. [facility] [id number] Miscellaneous Notes* Telephone Encounter - Danny Mchugh LPN - 10/18/2024 5:12 PM EST Call to Cher. No answer. * Telephone Encounter - Danny Mchugh LPN - 10/18/2024 5:06 PM EST Call to Yahir Magallon nurse. No answer. LM on . * Telephone Encounter - Danny Mchugh LPN - 10/18/2024 5:04 PM EST Call to Cher. No answer. LM on to call the office. * Telephone Encounter - Robby Napier MD - 10/18/2024 4:28 PM EST Please tell them that if she has not had rizatriptan for 12 hours or more since the last dose, thenebonie may be having another issue like stroke or infection. If they think she may be having a stroke,they should send her to the ER. She should immediately stop the rizatriptan. * Telephone Encounter - Aditi Daley - 10/18/2024 3:11 PM EST Name of caller: KENIA Sutton Contact phone number: [phone] Relationship to Patient: Yahir Magallon Provider: Dr. Napier Practice:[facility] Neurology [place] Chief Complaint/Reason for Call: Cher states that the patient began taking Rizatriptan on 10/11/24 and it is the only new medication the patient has started. Cher states that today before lunch the patient was talking and began to slur her words, although, the patient did not take any of the medication today. Cher states that the patient says she is feeling drugged and sedated. Please advise. Cher states that she have noticed more involuntary movement in the past couple of days and she wouldlike to receive a call back to discuss Dr. Napier's advice and suggestions. Please advise. 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 Napier Practice: Neurology Chief Complaint/Reason for Call: Cher called in because they received Rizatriptan last evening from their pharmacy, and she she was confused since the patient is currently taking Sumatriptan. Advised that patient med was changed by Dr. Napier. Cher asks to please fax a new order for the Rizatriptan sothat they can give it to the patient, as they administer the medications. Please fax to [phone] att: Cher. Best time of day caller can be reached: any Patient advised that office/PCP has 24-48 business hours to return their call: n/a documented in this encounterSProvidence [id number] Telephone encounter Note* Telephone Encounter - Danny Mchugh LPN - 10/18/2024 5:06 PM EST Call to Yahir [place] nurse. No answer. LM on . [facility] [id number] Telephone encounter Note* Telephone Encounter - Danny Mchugh LPN - 10/18/2024 5:04 PM EST Call to Cher. No answer. LM on to call the office. [facility] [id number] Telephone encounter Note* Telephone Encounter - Robby Napier MD - 10/18/2024 4:28 PM EST Please tell them that if she has not had rizatriptan for 12 hours or more since the last dose, grace may be having another issue like stroke or infection. If they think she may be having a stroke,they should send her to the ER. She should immediately stop the rizatriptan. [facility] [id number] Telephone encounter Note* Telephone Encounter - Aditi Daley - 10/18/2024 3:11 PM EST Name of caller: KENIA Sutton Contact phone number: [phone] Relationship to Patient: Yahir Magallon Provider: Dr. Napier Practice:[facility] Neurology [place] Chief Complaint/Reason for Call: Cher states that the patient began taking Rizatriptan on 10/11/24 and it is the only new medication the patient has started. Cher states that today before lunch the patient was talking and began to slur her words, although, the patient did not take any of the medication today. Cher states that the patient says she is feeling drugged and sedated. Please advise. Cher states that she have noticed more involuntary movement in the past couple of days and she wouldlike to receive a call back to discuss Dr. Napier's advice and suggestions. Please advise. 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 Napier Practice: Neurology Chief Complaint/Reason for Call: Cher called in because they received Rizatriptan last evening from their pharmacy, and she she was confused since the patient is currently taking Sumatriptan. Advised that patient med was changed by Dr. Napier. Cher asks to please fax a new order for the Rizatriptan sothat they can give it to the patient, as they administer the medications. Please fax to [phone] att: Cher. Best time of day caller can be reached: any Patient advised that office/PCP has 24-48 business hours to return their call: n/a [facility] [id number] Telephone encounter Note* Telephone Encounter - Robby Napier MD - 10/09/2024 4:16 PM EST I have sent in a prescription for rizatriptan to try instead of sumatriptan. [place] [id number] Miscellaneous Notes* Telephone Encounter - Robby Napier MD - 10/09/2024 4:16 PM EST I have sent in a prescription for rizatriptan to try instead of sumatriptan. * Telephone Encounter - Bethany Vásquez RN - 10/09/2024 1:29 PM EST S: Patient spoke with [facility] nurse regarding medication question. B: Imitrex 25mg orally prn. A: Patient took one pill on Wednesday- , Wednesday, Wednesday, Wednesday, and 2 pills on , Wednesday, and Wednesday. Patient is concerned she is getting rebound effects as she had the worse migraine then when she took the 1st pill on Wednesday. Patient rates the headache 7-8/10. Denies any nausea, no new vision issues or light sensitivity. Patient wants to know when she could take another pill? Patient has used 6 of the 9 pills. R: Patient advised a message will be sent to the provider and the office will follow up. Patient doesn't use mychart and requesting a call back. Reason for Disposition Caller has NON-URGENT medicine question about med that PCP or specialist prescribed and triager unable to answer question Protocols used: Medication Question [id number] documented in this [facility]12-09-2024 Telephone encounter Note* Telephone Encounter - Bethany Vásquez RN - 10/09/2024 1:29 PM EST S: Patient spoke with [facility] nurse regarding medication question. B: Imitrex 25mg orally prn. A: Patient took one pill on Wednesday- , Wednesday, Wednesday, Wednesday, and 2 pills on , Wednesday, and Wednesday. Patient is concerned she is getting rebound effects as she had the worse migraine then when she took the 1st pill on Wednesday. Patient rates the headache 7-8/10. Denies any nausea, no new vision issues or light sensitivity. Patient wants to know when she could take another pill? Patient has used 6 of the 9 pills. R: Patient advised a message will be sent to the provider and the office will follow up. Patient doesn't use mychart and requesting a call back. Reason for Disposition Caller has NON-URGENT medicine question about med that PCP or specialist prescribed and triager unable to answer question Protocols used: Medication Question [id number] [facility] [id number] Telephone encounter Note* Telephone Encounter - Linda Jordan MA - 09/18/2024 10:56 AM EST Spoke with cher from [facility]. Verbal order has been given [facility] [id number] Miscellaneous Notes* Telephone Encounter - Linda Jordan MA - 09/18/2024 10:56 AM EST Spoke with cher from [facility]. Verbal order has been given * Telephone Encounter - Linda Jordan MA - 09/18/2024 9:53 AM EST Call to Yahir Magallon. Lukas on for Nurse to call the office. Please send patient to the back line when patient returns call * Telephone Encounter - Linda Jordan MA - 09/14/2024 8:33 AM EST Call to Yahir Magallon. Lukas on for Nurse to call the office. Please send patient to the back line when patient returns call * Telephone Encounter - Danny Mchugh LPN - 09/12/2024 2:04 PM EST Call to Yahir Magallon. Lukas on for Nurse to call the office. Please send patient to the back line when patient returns call. Thank you. * Telephone Encounter - Aditi Fu - 09/12/2024 12:47 PM EST Pt called in stating she lives in assisted living and the nurse is requesting either a clinical note faxed over to fax # [phone] or a verbal call to # [phone] in regards to this medication dosage change. Please advise * Telephone Encounter - Lilia Fuentes RP - 09/12/2024 9:36 AM EST 40 mg dose added * Telephone Encounter - Robby Napier MD - 09/12/2024 9:28 AM EST Please help her switch from 60 mg to 40 mg Ingrezza * Telephone Encounter - Merissa Osborn - 09/12/2024 8:37 AM EST Message released to patient as written. Please stop the Ingrezza 60 and I will send in a prescription for the Ingrezza 40" Patient's further questions if applicable: Steve is requesting to have Ingrezza 40 sent to the [facility]. Patient express understanding; no further questions Were all questions from office addressed or relayed to the patient from encounter: Yes documented in this encounterSProvidence [id number] Telephone encounter Note* Telephone Encounter - Linda Jordan MA - 09/18/2024 9:53 AM EST Call to Yahir Mukherjee Lm on for Nurse to call the office. Please send patient to the back line when patient returns call [id number] Telephone encounter Note* Telephone Encounter - Linda Jordan MA - 09/14/2024 8:33 AM EST Call to Yahir Mukherjee Lm on for Nurse to call the office. Please send patient to the back line when patient returns call [facility] [id number] Miscellaneous Notes* Telephone Encounter - Linda Jordan MA - 09/14/2024 8:33 AM EST Call to Yahir Mukherjee Lm on for Nurse to call the office. Please send patient to the back line when patient returns call * Telephone Encounter - Danny Mchugh LPN - 09/12/2024 2:04 PM EST Call to Yahir Magallon. Lukas on for Nurse to call the office. Please send patient to the back line when patient returns call. Thank you. * Telephone Encounter - Aditi Fu - 09/12/2024 12:47 PM EST Pt called in stating she lives in assisted living and the nurse is requesting either a clinical note faxed over to fax # [phone] or a verbal call to # [phone] in regards to this medication dosage change. Please advise * Telephone Encounter - Lilia Fuentes RPh - 09/12/2024 9:36 AM EST 40 mg dose added * Telephone Encounter - Robby Napier MD - 09/12/2024 9:28 AM EST Please help her switch from 60 mg to 40 mg Ingrezza * Telephone Encounter - Merissa Osborn - 09/12/2024 8:37 AM EST Message released to patient as written. Please stop the Ingrezza 60 and I will send in a prescription for the Ingrezza 40" Patient's further questions if applicable: Steve is requesting to have Ingrezza 40 sent to the [facility]. Patient express understanding; no further questions Were all questions from office addressed or relayed to the patient from encounter: Yes documented in this encounterSProvidence [id number] Telephone encounter Note* Telephone Encounter - Marisela Frietas RN - 09/12/2024 4:57 PM EST S: Patient spoke with [facility] nurse regarding medication question B: valbenazine tosylate (Ingrezza) 40 MG capsule A: Patient asking for someone to call Nurses at facility where she lives to update them that her dosage of Ingrezza has been decreased to 40mg R: Called facility Nurse and left detailed message on Nurse voicemail advising of updated dosage ofvalbenazine tosylate (Ingrezza) as documented in EMR Reason for Disposition [1] Prescription prescribed recently is not at pharmacy AND [2] triager has access to patient's EMRAND [3] prescription is recorded in the EMR Protocols used: Medication Question [id number] [facility] [id number] Miscellaneous Notes* Telephone Encounter - Marisela Freitas RN - 09/12/2024 4:57 PM EST S: Patient spoke with [facility] nurse regarding medication question B: valbenazine tosylate (Ingrezza) 40 MG capsule A: Patient asking for someone to call Nurses at facility where she lives to update them that her dosage of Ingrezza has been decreased to 40mg R: Called facility Nurse and left detailed message on Nurse voicemail advising of updated dosage ofvalbenazine tosylate (Ingrezza) as documented in EMR Reason for Disposition [1] Prescription prescribed recently is not at pharmacy AND [2] triager has access to patient's EMRAND [3] prescription is recorded in the EMR Protocols used: Medication Question [id number] documented in this [facility]11-12-2024 Telephone encounter Note* Telephone Encounter - Danny Mchugh LPN - 09/12/2024 2:04 PM EST Call to Yahir Mukherjee Lm on for Nurse to call the office. Please send patient to the back line when patient returns call. Thank you. [facility] [id number] Miscellaneous Notes* Telephone Encounter - Danny Mchugh LPN - 09/12/2024 2:04 PM EST Call to Yahir Mukherjee Lm on for Nurse to call the office. Please send patient to the back line when patient returns call. Thank you. * Telephone Encounter - Aditi Fu - 09/12/2024 12:47 PM EST Pt called in stating she lives in assisted living and the nurse is requesting either a clinical note faxed over to fax # [phone] or a verbal call to # [phone] in regards to this medication dosage change. Please advise * Telephone Encounter - Lilia Fuentes RPh - 09/12/2024 9:36 AM EST 40 mg dose added * Telephone Encounter - Robby Napier MD - 09/12/2024 9:28 AM EST Please help her switch from 60 mg to 40 mg Ingrezza * Telephone Encounter - Merissa L Irena - 09/12/2024 8:37 AM EST Message released to patient as written. Please stop the Ingrezza 60 and I will send in a prescription for the Ingrezza 40" Patient's further questions if applicable: Steve is requesting to have Ingrezza 40 sent to the [facility]. Patient express understanding; no further questions Were all questions from office addressed or relayed to the patient from encounter: Yes documented in this encounterSProvidence [id number] Telephone encounter Note* Telephone Encounter - Aditi Fu - 09/12/2024 12:47 PM EST Pt called in stating she lives in assisted living and the nurse is requesting either a clinical note faxed over to fax # [phone] or a verbal call to # [phone] in regards to this medication dosage change. Please advise [place] [id number] Telephone encounter Note* Telephone Encounter - Lilia Fuentes RPh - 09/12/2024 9:36 AM EST 40 mg dose added [place] [id number] Telephone encounter Note* Telephone Encounter - Robby Napier MD - 09/12/2024 9:28 AM EST Please help her switch from 60 mg to 40 mg Ingrez[id number] Telephone encounter Note* Telephone Encounter - Linda Jordan MA - 09/12/2024 8:46 AM EST Please see other te [facility] [id number] Miscellaneous Notes* Telephone Encounter - Linda Jordan MA - 09/12/2024 8:46 AM EST Please see other te * Telephone Encounter - Linda Jordan MA - 09/12/2024 8:10 AM EST Lm for patient to call the office back, please relay providers message. * Telephone Encounter - Robby Napier MD - 09/11/2024 5:25 PM EST She can stop the 60 mg Ingrezza and I will send a prescription for the 40 mg Ingrezza. * Telephone Encounter - Martita Barger RN - 09/11/2024 4:59 PM EST Patient called psychiatrist and was told to follow up with Dr. Napier because the Ingrezza was prescribed by him. This is her second call today. Dr. Napier increased her dose on 09/01/24. She is asking if she should continue with the increased dose of Ingrezza as she feels the following symptoms of "extreme" depression, did not trust anyone and had a hard time sleeping is from the above medication. She resides in a nursing facility. She is just calling back to see what she should do. Patient was talking rapidly during the call and was very repetitive. She states "I do have bipolar and am dealingwith that. I called my counselor today." Denies any suicidal or homicidal ideation. She is feeling b aniceto than this morning. She just wants to know if it could have been caused by the above medication. Advised patient the message was sent to physician and the office will call back once the providerreviews the message. * Telephone Encounter - Paola Whiteside RN - 09/11/2024 10:55 AM EST S: Patient spoke with [facility] nurse regarding depression B: Onset of symptoms/concern A: Believes her increased depression is due to the increased dosage of Ingrezza. States she has problems trusting other currently. Lives in assisted living facility and states this is affecting her quality of life recently. Called her counselor first who advised she call Neuro to change medication.Admits to history of Bipolar. Denies thoughts of wanting to harm herself or plan to harm herself. R: TE to office for review and follow up with the patient. Patient also states she is going to callher psychiatrist today for further care. Patient understands care advice. No further needs at this time. Patient instructed to call back with new or worsening symptoms. Reason for Disposition Symptoms interfere with work or school Protocols used: [id number] documented in this encounterSProvidence [id number] Telephone encounter Note* Telephone Encounter - Merissa Osborn - 09/12/2024 8:37 AM EST Message released to patient as written. Please stop the Ingrezza 60 and I will send in a prescription for the Ingrezza 40" Patient's further questions if applicable: Steve is requesting to have Ingrezza 40 sent to the [facility]. Patient express understanding; no further questions Were all questions from office addressed or relayed to the patient from encounter: Yes [facility] [id number] Telephone encounter Note* Telephone Encounter - Linda Jordan MA - 09/12/2024 8:10 AM EST Lm for patient to call the office back, please relay providers message. [facility] [id number] Telephone encounter Note* Telephone Encounter - Robby Napier MD - 09/11/2024 5:25 PM EST She can stop the 60 mg Ingrezza and I will send a prescription for the 40 mg Ingrezza. [facility] [id number] Miscellaneous Notes* Telephone Encounter - Robby Napier MD - 09/11/2024 5:25 PM EST She can stop the 60 mg Ingrezza and I will send a prescription for the 40 mg Ingrezza. * Telephone Encounter - Martita Barger RN - 09/11/2024 4:59 PM EST Patient called psychiatrist and was told to follow up with Dr. Napier because the Ingrezza was prescribed by him. This is her second call today. Dr. Napier increased her dose on 09/01/24. She is asking if she should continue with the increased dose of Ingrezza as she feels the following symptoms of "extreme" depression, did not trust anyone and had a hard time sleeping is from the above medication. She resides in a nursing facility. She is just calling back to see what she should do. Patient was talking rapidly during the call and was very repetitive. She states "I do have bipolar and am dealingwith that. I called my counselor today." Denies any suicidal or homicidal ideation. She is feeling b aniceto than this morning. She just wants to know if it could have been caused by the above medication. Advised patient the message was sent to physician and the office will call back once the providerreviews the message. * Telephone Encounter - Paola Whiteside RN - 09/11/2024 10:55 AM EST S: Patient spoke with [facility] nurse regarding depression B: Onset of symptoms/concern A: Believes her increased depression is due to the increased dosage of Ingrezza. States she has problems trusting other currently. Lives in assisted living facility and states this is affecting her quality of life recently. Called her counselor first who advised she call Neuro to change medication.Admits to history of Bipolar. Denies thoughts of wanting to harm herself or plan to harm herself. R: TE to office for review and follow up with the patient. Patient also states she is going to callher psychiatrist today for further care. Patient understands care advice. No further needs at this time. Patient instructed to call back with new or worsening symptoms. Reason for Disposition Symptoms interfere with work or school Protocols used: [id number] documented in this [facility]11-11-2024 Telephone encounter Note* Telephone Encounter - Martita Barger RN - 09/11/2024 4:59 PM EST Patient called psychiatrist and was told to follow up with Dr. Napier because the Ingrezza was prescribed by him. This is her second call today. Dr. Napier increased her dose on 09/01/24. She is asking if she should continue with the increased dose of Ingrezza as she feels the following symptoms of "extreme" depression, did not trust anyone and had a hard time sleeping is from the above medication. She resides in a nursing facility. She is just calling back to see what she should do. Patient was talking rapidly during the call and was very repetitive. She states "I do have bipolar and am dealingwith that. I called my counselor today." Denies any suicidal or homicidal ideation. She is feeling b aniceto than this morning. She just wants to know if it could have been caused by the above medication. Advised patient the message was sent to physician and the office will call back once the providerreviews the message. [facility] [id number] Telephone encounter Note* Telephone Encounter - Martita Barger RN - 09/11/2024 4:58 PM EST Duplicate ticket Reason for Disposition Caller has already spoken with another triager or PCP AND has further questions AND triager able toanswer questions. Protocols used: NO CONTACT OR DUPLICATE CONTACT [id number] [facility] [id number] Miscellaneous Notes* Telephone Encounter - Martita Barger RN - 09/11/2024 4:58 PM EST Duplicate ticket Reason for Disposition Caller has already spoken with another triager or PCP AND has further questions AND triager able toanswer questions. Protocols used: NO CONTACT OR DUPLICATE CONTACT [id number] documented in this encounterSProvidence [id number] Telephone encounter Note* Telephone Encounter - Paola Whiteside RN - 09/11/2024 10:55 AM EST S: Patient spoke with [facility] nurse regarding depression B: Onset of symptoms/concern A: Believes her increased depression is due to the increased dosage of Ingrezza. States she has problems trusting other currently. Lives in assisted living facility and states this is affecting her quality of life recently. Called her counselor first who advised she call Neuro to change medication.Admits to history of Bipolar. Denies thoughts of wanting to harm herself or plan to harm herself. R: TE to office for review and follow up with the patient. Patient also states she is going to callher psychiatrist today for further care. Patient understands care advice. No further needs at this time. Patient instructed to call back with new or worsening symptoms. Reason for Disposition Symptoms interfere with work or school Protocols used: [id number] [facility] [id number] Telephone encounter Note* Telephone Encounter - Lizette Kurtz - 09/04/2024 8:39 AM EST [facility]rezza for pt. New dose rx pended if appropriate. Thank you [place] [id number] Miscellaneous Notes* Telephone Encounter - Lizette Kurtz - 09/04/2024 8:39 AM EST [facility] Ingrezza for pt. New dose rx pended if appropriate. Thank you documented in this [facility]11-01-2024 History of Present illness Narrative* Robby Napier MD - 09/01/2024 2:40 PM EDT Images from the original note were not included. [facility] [address] [facility] [address] Dept: [phone] Dept Loc: [phone] Robby Napier MD Thank you for your kind request for a neurological consultation on this patient. CHIEF COMPLAINT: Chief Complaint Patient presents with Follow-up Abnl Movement HISTORY OF PRESENT ILLNESS: The patient is a 69 y.o. person who returns with movements . She reports that they are much better.She still has the severity is much better eitwith the Ingreazza. She is still having the eye closure. She still has headaches. Qulipta caused nausea, weight loss and headaches. She reports that she is having headaches. Past Medical History: has a past medical history of Anxiety, Asthma, Bipolar 1 disorder ([facility]), Bipolar depression (CMS/HCC) ([facility]), Cerebral palsy ([facility]), Cervical spine degeneration, COPD (chronic obstructive pulmonary disease) ([facility]), Dysphasia, Gait abnormality, GERD (gastroesophageal reflux disease), Hypercholesteremia, Hyperreflexia, Hypoglycemia, Hypothyroidism, IBS (irritable bowel syndrome), Myalgia, Myositis, Rhinitis, and Urinary incontinence. She reports that she was diagnosed with a stroke in 2020 at [place]. I do not have those records. Past Surgical History: has a past surgical history that includes Leg Surgery; Carpal tunnel release (Left); Shoulder surgery; Nasal septum surgery; Appendectomy; and Cholecystectomy. Medications: Current Outpatient Medications: Acetaminophen (TYLENOL 8 HOUR PO), Take by mouth., Disp: , Rfl: albuterol (2.5 MG/3ML) 0.083% nebulizer solution, , Disp: , Rfl: albuterol 108 (90 Base) MCG/ACT inhaler, Inhale 2 puffs every 6 hours as needed for wheezing., Disp: , Rfl: ammonium lactate (Amlactin) 12 % cream, APPLY TO ELBOWS ONCE A DAY, Disp: , Rfl: aspirin 81 MG EC tablet, Take 1 tablet by mouth daily., Disp: , Rfl: BUDESONIDE IN, Inhale., Disp: , Rfl: Calcium Carbonate-Vitamin D 500-5 MG-MCG tablet, Take by mouth., Disp: , Rfl: carboxymethylcellulose (Artificial Tears) 1 % ophthalmic solution, 1 drop 3 times daily., Disp: , Rfl: cetirizine (ZyrTEC) 10 MG tablet, Take by mouth., Disp: , Rfl: clopidogrel (Plavix) 75 MG tablet, Take by mouth daily., Disp: , Rfl: Cyanocobalamin (B-12) 1000 MCG sublingual tablet, Place under the tongue., Disp: , Rfl: Diclofenac Sodium (Voltaren) 1 % gel, Apply topically 2 times daily., Disp: , Rfl: ferrous sulfate 325 (65 Fe) MG tablet, Take 325 mg by mouth daily (with breakfast)., Disp: , Rfl: fluticasone (Flonase) 50 MCG/ACT nasal spray, Administer 1 spray into each nostril daily. Shake gently. Before first use, prime pump. After use, clean tip and replace cap., Disp: , Rfl: FORMOTEROL FUMARATE IN, Inhale., Disp: , Rfl: gabapentin (Neurontin) 400 MG capsule, Take 400 mg by mouth 3 times daily., Disp: , Rfl: HYDROcodone-acetaminophen ([place]) 5-325 MG tablet, , Disp: , Rfl: hydrocortisone 2.5 % cream, Apply topically 2 times daily., Disp: , Rfl: hydrOXYzine HCl (Atarax) 25 MG tablet, Take by mouth., Disp: , Rfl: ibandronate (Boniva) 150 MG tablet, Take 150 mg by mouth every 30 (thirty) days. Take in morning with full glass of water on an empty stomach. No food, drink, meds, or lying down for 60 minutes after., Disp: , Rfl: lactase (Lactaid) 3000 units tablet, Take 3,000 Units by mouth in the morning and 3,000 Units at noon and 3,000 Units in the evening. Take with meals., Disp: , Rfl: lamoTRIgine (LAMICTAL PO), Take 100 mg by mouth Nightly., Disp: , Rfl: lamoTRIgine (LaMICtal) 200 MG tablet, Take 200 mg by mouth 2 times daily., Disp: , Rfl: levothyroxine (Synthroid, Levoxyl) 75 MCG tablet, Take by mouth every morning (before breakfast)., Disp: , Rfl: losartan (Cozaar) 25 MG tablet, Take by mouth., Disp: , Rfl: magnesium oxide (Mag-Ox) 400 mg tablet, 400 mg daily., Disp: , Rfl: meclizine (Antivert) 12.5 MG tablet, Take 12.5 mg by mouth 3 times daily as needed for dizziness., Disp: , Rfl: Multiple Vitamin (multivitamin) capsule, Take 1 capsule by mouth daily., Disp: , Rfl: nystatin (Mycostatin) 639530 UNIT/GM powder, Apply topically 2 times daily., Disp: , Rfl: polycarbophil (Fiber-Lax) 625 MG tablet, Take by mouth daily., Disp: , Rfl: polyethylene glycol, PEG, 3350 (Miralax) 17 g packet, Take by mouth., Disp: , Rfl: prednisoLONE sodium phosphate (Inflamase Forte) 1 % ophthalmic solution, 1 drop in the morning and 1 drop at noon and 1 drop in the evening and 1 drop before bedtime., Disp: , Rfl: promethazine (Phenergan) 25 MG tablet, Take by mouth., Disp: , Rfl: RABEprazole (Aciphex) 20 MG EC tablet, Take by mouth. Do not crush, chew, or split., Disp: , Rfl: rosuvastatin (Crestor) 5 MG tablet, Take 5 mg by mouth daily., Disp: , Rfl: sucralfate (Carafate) 1 g tablet, Take by mouth 4 times daily (before meals and nightly)., Disp: , Rfl: tiZANidine (Zanaflex) 4 MG capsule, Take 4 mg by mouth 3 times daily., Disp: , Rfl: tiZANidine (Zanaflex) 6 MG capsule, Take by mouth 3 times daily., Disp: , Rfl: triamcinolone (Kenalog) 0.1 % cream, Apply topically 2 times daily., Disp: , Rfl: VITAMIN D PO, Take by mouth., Disp: , Rfl: Atogepant (Qulipta) 30 MG tablet, Take 1 tablet by mouth daily. (Patient not taking: Reported on 09/01/2024), Disp: 90 tablet, Rfl: 3 diazePAM (Valium) 10 MG tablet, Take 1 tablet (10 mg) by mouth Once for 1 dose. 2 hours prior to the MRI, Disp: 1 tablet, Rfl: 0 SUMAtriptan (Imitrex) 25 MG tablet, Take 1 tablet (25 mg) by mouth Once as needed for migraine (mayrepeat x1) for up to 1 dose. May repeat dose once in 2 hours if no relief. Do not exceed 2 doses in24 hours., Disp: 9 tablet, Rfl: 3 Valbenazine Tosylate (Ingrezza) 60 MG capsule, Take 60 mg by mouth daily., Disp: 90 capsule, Rfl: 1 Allergies: Baclofen; Ciclesonide; Erythromycin; Fentanyl; Imipramine; Lubiprostone; Ondansetron; Oxycodone; Oxymorphone; Pregabalin; Topiramate; Aspartame; Levofloxacin; Onabotulinumtoxina; Penicillins; Antihistamines, chlorpheniramine-type; Ascorbic acid; Botulinum toxin type a; Bupropion; Buspirone; Capsaicin; Carbamazepine; Cat hair extract; Celecoxib; Dog epithelium (canis lupus familiaris); Duloxetine; Dust mite extract; Erythromycin base; Fluvoxamine; Gabapentin; Horse protein; Ibuprofen;Iron polysaccharide; Lurasidone; Nsaids; Propantheline; Pseudoephedrine; Qulipta [atogepant]; Saccha rin; Sulfamethoxazole-trimethoprim; Tetracycline; Trimethoprim; Venlafaxine; Venlafaxine hcl; Wounddressing adhesive; Ziprasidone; Cefaclor; Cephalexin; Ciprofloxacin; Codeine; Daucus carota; Diphenhydramine; Dog epithelium; Doxepin; Hydromorphone; Candor; Molds & smuts; Onabotulinumtoxina (cosmetic); Pollen extract; Sertraline; and Sulfa antibiotics Social History: Social History Socioeconomic History Marital status: Single Spouse name: Not on file Number of children: Not on file Years of education: Not on file Highest education level: Not on file Occupational History Not on file Tobacco Use Smoking status: Never Smokeless tobacco: Never Substance and Sexual Activity Alcohol use: Yes Drug use: Not on file Sexual activity: Not on file Other Topics Concern Not on file Social History Narrative Not on file Social Drivers of Health Financial Resource Strain: Not on file Food Insecurity: Not on file Transportation Needs: Not on file Physical Activity: Not on file Stress: Not on file Social Connections: Not on file Intimate Partner Violence: Not on file Housing Stability: Not on file Family History: Family History Problem Relation Name Age of Onset Alcohol abuse Mother Heart disease Sister Bipolar disorder Mother Stroke Sister Cancer Brother Emphysema Father REVIEW OF SYSTEMS: Review of Systems Constitutional: Negative for appetite change, chills, diaphoresis, fever and unexpected weight change. HENT: Negative for dental problem and mouth sores. Eyes: Negative for discharge and itching. Respiratory: Negative for chest tightness. Cardiovascular: Negative for chest pain and leg swelling. Gastrointestinal: Negative for rectal pain and vomiting. Endocrine: Negative for polydipsia, polyphagia and polyuria. Genitourinary: Negative for decreased urine volume, flank pain and genital sores. Musculoskeletal: Negative for arthralgias. Skin: Negative for color change. Allergic/Immunologic: Negative for food allergies and immunocompromised state. Neurological: Positive for headaches. Abnormal movements Gait disorder Hematological: Negative for adenopathy. Does not bruise/bleed easily. Psychiatric/Behavioral: Negative for agitation, behavioral problems, decreased concentration, sleepdisturbance and suicidal ideas. PHYSICAL EXAM: Vitals: BP 127/80 (BP Location: Right arm, Patient Position: Sitting, BP Cuff Size: Adult) Pulse 76 Ht 5' 2" (1.575 m) Wt 171 lb 3.2 oz (77.7 kg) BMI 31.31 kg/m General Appearance: Patient is in no apparent distress. Head is normocephalic, atraumatic Cardiovascular: Regular rate and rhythm. No heart murmurs. No carotid bruit Neurologic: Mentation: Alert and oriented x 3 to person, place and time. Speech and Language: Speech and language normal Concentration and Attention: Concentration normal Memory: Memory grossly normal Fund of Knowledge: Fund of knowledge normal Cranial Nerves: II, III, IV, V, , VII, VIII, IX, X, XI, XII tested and were examined including fundoscopic exam (optic discs) and visual field to confrontation. She still has eye closure. It looks more involuntary today. Motor: Strength:Strength exam is difficult due to pain in her shoulders and braces on her ankles. She appears to have equal and symmetric strength. Alternating Movements: Normal Cogwheel Rigidity: None Tone: Tone is normal Tremor / Involuntary Movements: There is a combination of choreiform movements of the right arm/torso, some dyskinesias, but these are far better than the last exam. Deep Tendon Reflexes: 1 out of 4 symmetrical in all four limbs. Sensory: Normal sensation upper and lower extremities Coordination: Normal coordination upper and lower extremities Gait and Station: Station is normal. Gait is abnormal. DATA CBC: No results found for: "WBC", "RBC", "HGB", "HCT", "MCV", "MCH", "MCHC", "RDW", "PLT", "MPV" CMP: No results found for: "NA", "K", "CL", "CO2", "BUN", "CREATININE", "AGRATIO", "LABGLOM", "GLUCOSE", "GLU", "PROT", "CALCIUM", "BILITOT", "ALKPHOS", "AST", "ALT" BMP: No results found for: "NA", "K", "CL", "CO2", "BUN", "CREATININE", "CALCIUM", "LABGLOM", "GLUCOSE", "GLU" PT/INR: No results found for: "PROTIME", "INR" PTT: No results found for: "APTT", "PTT"[APTT} FLP: No results found for: "CHLPL", "TRIG", "HDL", "LDLCALC", "LDLDIRECT" TSH: No results found for: "TSH" VITAMIN B12: No results found for: "CZCNSKCG75" FERRITIN: No results found for: "FERRITIN" ---- No results found for: "PHENYTOIN", "PHENOBARB", "VALPROATE", "CBMZ" No components found for: "TOPIRA"No results found for: "OXCARBAZE", "OXCARB" @LASTAPPOINTMENTTHISPROV@ EEG extended more than 1 hour Robby Napier MD 08/15/2024 6:03 PM EEG REPORT Patient Name: Steve Fagan : 1955 PROVIDER REQUESTING STUDY: Dr. Napier REASON FOR EXAM: syncope and collapse HISTORY: Steve Fagan is a 69 y.o. with history of syncope and collapse MEDICATIONS: Current Outpatient Medications: Acetaminophen (TYLENOL 8 HOUR PO), Take by mouth., Disp: , Rfl: albuterol (2.5 MG/3ML) 0.083% nebulizer solution, , Disp: , Rfl: ammonium lactate (Amlactin) 12 % cream, APPLY TO ELBOWS ONCE A DAY, Disp: , Rfl: aspirin 81 MG EC tablet, Take 1 tablet by mouth daily., Disp: , Rfl: Atogepant (Qulipta) 30 MG tablet, Take 1 tablet by mouth daily., Disp: 90 tablet, Rfl: 3 BUDESONIDE IN, Inhale., Disp: , Rfl: Calcium Carbonate-Vitamin D 500-5 MG-MCG tablet, Take by mouth., Disp: , Rfl: carboxymethylcellulose (Artificial Tears) 1 % ophthalmic solution, 1 drop 3 times daily., Disp: , Rfl: cetirizine (ZyrTEC) 10 MG tablet, Take by mouth., Disp: , Rfl: clopidogrel (Plavix) 75 MG tablet, Take by mouth daily., Disp: , Rfl: Cyanocobalamin (B-12) 1000 MCG sublingual tablet, Place under the tongue., Disp: , Rfl: Deutetrabenazine ER (Austedo XR) 30 MG tablet sustained-release 24 hour, Take 1 tablet by mouth every morning. Do not start before July 27, 2024., Disp: 90 tablet, Rfl: 2 Deutetrabenazine ER (Austedo XR) 30 MG tablet sustained-release 24 hour, Take 1 tablet by mouth daily., Disp: 30 tablet, Rfl: 11 diazePAM (Valium) 10 MG tablet, Take 1 tablet (10 mg) by mouth Once for 1 dose. 2 hours prior to the MRI, Disp: 1 tablet, Rfl: 0 Diclofenac Sodium (Voltaren) 1 % gel, Apply topically 2 times daily., Disp: , Rfl: ferrous sulfate 325 (65 Fe) MG tablet, Take 325 mg by mouth daily (with breakfast)., Disp: , Rfl: fluticasone (Flonase) 50 MCG/ACT nasal spray, Administer 1 spray into each nostril daily. Shake gently. Before first use, prime pump. After use, clean tip and replace cap., Disp: , Rfl: FORMOTEROL FUMARATE IN, Inhale., Disp: , Rfl: gabapentin (Neurontin) 400 MG capsule, Take 400 mg by mouth 3 times daily., Disp: , Rfl: HYDROcodone-acetaminophen ([place]) 5-325 MG tablet, , Disp: , Rfl: hydrocortisone 2.5 % cream, Apply topically 2 times daily., Disp: , Rfl: hydrOXYzine HCl (Atarax) 25 MG tablet, Take by mouth., Disp: , Rfl: ibandronate (Boniva) 150 MG tablet, Take 150 mg by mouth every 30 (thirty) days. Take in morning with full glass of water on an empty stomach. No food, drink, meds, or lying down for 60 minutes after., Disp: , Rfl: lactase (Lactaid) 3000 units tablet, Take 3,000 Units by mouth in the morning and 3,000 Units at noon and 3,000 Units in the evening. Take with meals., Disp: , Rfl: lamoTRIgine (LAMICTAL PO), Take 300 mg by mouth daily., Disp: , Rfl: lamoTRIgine (LaMICtal) 200 MG tablet, Take 200 mg by mouth 2 times daily., Disp: , Rfl: levothyroxine (Synthroid, Levoxyl) 75 MCG tablet, Take by mouth every morning (before breakfast)., Disp: , Rfl: losartan (Cozaar) 25 MG tablet, Take by mouth., Disp: , Rfl: magnesium oxide (Mag-Ox) 400 mg tablet, 400 mg daily., Disp: , Rfl: meclizine (Antivert) 12.5 MG tablet, Take 12.5 mg by mouth 3 times daily as needed for dizziness., Disp: , Rfl: Multiple Vitamin (multivitamin) capsule, Take 1 capsule by mouth daily., Disp: , Rfl: nystatin (Mycostatin) 953112 UNIT/GM powder, Apply topically 2 times daily., Disp: , Rfl: polycarbophil (Fiber-Lax) 625 MG tablet, Take by mouth daily., Disp: , Rfl: polyethylene glycol, PEG, 3350 (Miralax) 17 g packet, Take by mouth., Disp: , Rfl: prednisoLONE sodium phosphate (Inflamase Forte) 1 % ophthalmic solution, 1 drop in the morning and 1 drop at noon and 1 drop in the evening and 1 drop before bedtime., Disp: , Rfl: promethazine (Phenergan) 25 MG tablet, Take by mouth., Disp: , Rfl: RABEprazole (Aciphex) 20 MG EC tablet, Take by mouth. Do not crush, chew, or split., Disp: , Rfl: rosuvastatin (Crestor) 5 MG tablet, Take 5 mg by mouth daily., Disp: , Rfl: sucralfate (Carafate) 1 g tablet, Take by mouth 4 times daily (before meals and nightly)., Disp: , Rfl: tiZANidine (Zanaflex) 4 MG capsule, Take 4 mg by mouth 3 times daily., Disp: , Rfl: tiZANidine (Zanaflex) 6 MG capsule, Take by mouth 3 times daily., Disp: , Rfl: triamcinolone (Kenalog) 0.1 % cream, Apply topically 2 times daily., Disp: , Rfl: valbenazine tosylate (Ingrezza) 40 MG capsule, Take 1 capsule (40 mg) by mouth daily., Disp: 90 capsule, Rfl: 1 VITAMIN D PO, Take by mouth., Disp: , Rfl: TECHNICAL ASPECTS: This routine scalp EEG study without video was carried out. Scalp electrodes were positioned in person by an x ray technologist, following patient education, according to the 10-20 International system of electrode placement and maintained for integrity and quality of the recording. EEG data with video was recorded continuously and digitally stored. The x ray technologist reviewed all automated detections and manual events and prepared the data for archiving and provider review. Referential and bipolar montages were used for review. The recording lasted for over 61.5 minutes. TECHNOLOGIST NOTES: There was no history of skull defect. BACKGROUND ACTIVITY: Posterior background activity: A continuous organized and well-modulated 7 Hz rhythm was seen symmetrically over the posterior head regions bilaterally. Beta range: Fronto-centrally predominant beta range activity (15-25 Hz, 10-20 uV) was seen. Sleep: N2 sleep was reached as evidenced by the appearance of vertex waves and sleep spindles seen symmetrically over the central head regions bilaterally. Normal Variants: No normal variants were identified. SLOWING: Her waking background rhythm was never more than 7 Hz INTERICTAL EPILEPTIFORM ACTIVITY: No epileptiform activity was seen. ICTAL ACTIVITY: No ictal activity was seen. NON-EPILEPTIC EVENTS: There was movement, talking, and sweat artifacts during the recording. IMPRESSION: This is a mildly abnormal awake and sleep EEG. Her waking background rhythm is mildly slower than normal. 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 FINDINGS: Acute findings: No recent infarct, intracranial hemorrhage, or extra-axial fluid collection. Mass: None. No abnormal brain parenchymal or leptomeningeal enhancement. Parenchyma/White Matter: No evidence for atrophy of the caudate nucleus is noted. Scattered patchy and beginning-confluent foci of nonspecific T2/FLAIR hyperintensity in the supratentorial white matter, most likely secondary to chronic small vessel ischemic disease. Ventricles and sulci: Moderate generalized brain parenchymal volume loss with proportionate ventricular enlargement. Skull base: Normal size and morphology of the pituitary gland. No suprasellar mass. Normal positionof the cerebellar tonsils. Vessels: The major intracranial flow voids are preserved. Extracranial structures: Normal orbits. No extracranial soft tissue abnormalities. Sinuses/mastoids: Clear Bones: No pathologic marrow infiltration. IMPRESSION: 1. No acute intracranial abnormalities. No enhancing lesions. 2. Generalized brain parenchymal volume loss and moderate chronic microvascular ischemic changes inthe supratentorial white matter. Report Dictated on Electronically Signed By: Navarro Epps MD Electronically Signed Date/Time: 07/28/2024 10:57 AM EDT ASSESSMENT AND PLAN: Diagnosis Plan 1. Blepharospasm of both eyes [facility] Neurology 2. Tardive dyskinesia Valbenazine Tosylate (Ingrezza) 60 MG capsule 3. Chorea Valbenazine Tosylate (Ingrezza) 60 MG capsule 4. Gait disturbance External referral to Physical Therapy 5. Migraine without aura and without status migrainosus, not intractable SUMAtriptan (Imitrex) 25 MG tablet Referral to Dr. Bergeron for Botox for blepharospasm. Increase Ingrezza. She is improved. Ingrezza increase to 60 mg Ingrezza increase. PT referral. Sumatriptan prn I spent 40 minutes caring for this patient today, reviewing labs and records, seeing the patient, documenting in the record and arranging for studies. documented in this [facility]10-15-2024 NoteEEG REPORT Patient Name: Steve Fagan : 1955 PROVIDER REQUESTING STUDY: Dr. Napier REASON FOR EXAM: syncope and collapse HISTORY: Steve Fagan is a 69 y.o. with history of syncope and collapse MEDICATIONS: Current Outpatient Medications: Acetaminophen (TYLENOL 8 HOUR PO), Take by mouth., Disp: , Rfl: albuterol (2.5 MG/3ML) 0.083% nebulizer solution, , Disp: , Rfl: ammonium lactate (Amlactin) 12 % cream, APPLY TO ELBOWS ONCE A DAY, Disp: , Rfl: aspirin 81 MG EC tablet, Take 1 tablet by mouth daily., Disp: , Rfl: Atogepant (Qulipta) 30 MG tablet, Take 1 tablet by mouth daily., Disp: 90 tablet, Rfl: 3 BUDESONIDE IN, Inhale., Disp: , Rfl: Calcium Carbonate-Vitamin D 500-5 MG-MCG tablet, Take by mouth., Disp: , Rfl: carboxymethylcellulose (Artificial Tears) 1 % ophthalmic solution, 1 drop 3 times daily., Disp: , Rfl: cetirizine (ZyrTEC) 10 MG tablet, Take by mouth., Disp: , Rfl: clopidogrel (Plavix) 75 MG tablet, Take by mouth daily., Disp: , Rfl: Cyanocobalamin (B-12) 1000 MCG sublingual tablet, Place under the tongue., Disp: , Rfl: Deutetrabenazine ER (Austedo XR) 30 MG tablet sustained-release 24 hour, Take 1 tablet by mouth every morning. Do not start before July 27, 2024., Disp: 90 tablet, Rfl: 2 Deutetrabenazine ER (Austedo XR) 30 MG tablet sustained-release 24 hour, Take 1 tablet by mouth daily., Disp: 30 tablet, Rfl: 11 diazePAM (Valium) 10 MG tablet, Take 1 tablet (10 mg) by mouth Once for 1 dose. 2 hours prior to the MRI, Disp: 1 tablet, Rfl: 0 Diclofenac Sodium (Voltaren) 1 % gel, Apply topically 2 times daily., Disp: , Rfl: ferrous sulfate 325 (65 Fe) MG tablet, Take 325 mg by mouth daily (with breakfast)., Disp: , Rfl: fluticasone (Flonase) 50 MCG/ACT nasal spray, Administer 1 spray into each nostril daily. Shake gently. Before first use, prime pump. After use, clean tip and replace cap., Disp: , Rfl: FORMOTEROL FUMARATE IN, Inhale., Disp: , Rfl: gabapentin (Neurontin) 400 MG capsule, Take 400 mg by mouth 3 times daily., Disp: , Rfl: HYDROcodone-acetaminophen ([place]) 5-325 MG tablet, , Disp: , Rfl: hydrocortisone 2.5 % cream, Apply topically 2 times daily., Disp: , Rfl: hydrOXYzine HCl (Atarax) 25 MG tablet, Take by mouth., Disp: , Rfl: ibandronate (Boniva) 150 MG tablet, Take 150 mg by mouth every 30 (thirty) days. Take in morning with full glass of water on an empty stomach. No food, drink, meds, or lying down for 60 minutes after., Disp: , Rfl: lactase (Lactaid) 3000 units tablet, Take 3,000 Units by mouth in the morning and 3,000 Units at noon and 3,000 Units in the evening. Take with meals., Disp: , Rfl: lamoTRIgine (LAMICTAL PO), Take 300 mg by mouth daily., Disp: , Rfl: lamoTRIgine (LaMICtal) 200 MG tablet, Take 200 mg by mouth 2 times daily., Disp: , Rfl: levothyroxine (Synthroid, Levoxyl) 75 MCG tablet, Take by mouth every morning (before breakfast)., Disp: , Rfl: losartan (Cozaar) 25 MG tablet, Take by mouth., Disp: , Rfl: magnesium oxide (Mag-Ox) 400 mg tablet, 400 mg daily., Disp: , Rfl: meclizine (Antivert) 12.5 MG tablet, Take 12.5 mg by mouth 3 times daily as needed for dizziness., Disp: , Rfl: Multiple Vitamin (multivitamin) capsule, Take 1 capsule by mouth daily., Disp: , Rfl: nystatin (Mycostatin) 117101 UNIT/GM powder, Apply topically 2 times daily., Disp: , Rfl: polycarbophil (Fiber-Lax) 625 MG tablet, Take by mouth daily., Disp: , Rfl: polyethylene glycol, PEG, 3350 (Miralax) 17 g packet, Take by mouth., Disp: , Rfl: prednisoLONE sodium phosphate (Inflamase Forte) 1 % ophthalmic solution, 1 drop in the morning and 1 drop at noon and 1 drop in the evening and 1 drop before bedtime., Disp: , Rfl: promethazine (Phenergan) 25 MG tablet, Take by mouth., Disp: , Rfl: RABEprazole (Aciphex) 20 MG EC tablet, Take by mouth. Do not crush, chew, or split., Disp: , Rfl: rosuvastatin (Crestor) 5 MG tablet, Take 5 mg by mouth daily., Disp: , Rfl: sucralfate (Carafate) 1 g tablet, Take by mouth 4 times daily (before meals and nightly)., Disp: , Rfl: tiZANidine (Zanaflex) 4 MG capsule, Take 4 mg by mouth 3 times daily., Disp: , Rfl: tiZANidine (Zanaflex) 6 MG capsule, Take by mouth 3 times daily., Disp: , Rfl: triamcinolone (Kenalog) 0.1 % cream, Apply topically 2 times daily., Disp: , Rfl: valbenazine tosylate (Ingrezza) 40 MG capsule, Take 1 capsule (40 mg) by mouth daily., Disp: 90 capsule, Rfl: 1 VITAMIN D PO, Take by mouth., Disp: , Rfl: TECHNICAL ASPECTS: This routine scalp EEG study without video was carried out. Scalp electrodes were positioned in person by an x ray technologist, following patient education, according to the 10-20 International system of electrode placement and maintained for integrity and quality of the recording. EEG data with video was recorded continuously and digitally stored. The x ray technologist reviewed all automated detections and manual events and prepared the da (more content not included)...[facility]10-15-2024 Procedure note* Robby Napier MD - 08/15/2024 12:00 PM EDTAssociated Order(s): EEG EXTENDED MORE THAN 1 HOUR Procedure(s): EEG EXTENDED MORE THAN 1 HOUR Pre-Procedure Diagnose(s): Syncope and collapse Post-Procedure Diagnose(s): Syncope and collapse EEG REPORT Patient Name: Steve Fagan : 1955 PROVIDER REQUESTING STUDY: Dr. Napier REASON FOR EXAM: syncope and collapse HISTORY: Steve Fagan is a 69 y.o. with history of syncope and collapse MEDICATIONS: Current Outpatient Medications: Acetaminophen (TYLENOL 8 HOUR PO), Take by mouth., Disp: , Rfl: albuterol (2.5 MG/3ML) 0.083% nebulizer solution, , Disp: , Rfl: ammonium lactate (Amlactin) 12 % cream, APPLY TO ELBOWS ONCE A DAY, Disp: , Rfl: aspirin 81 MG EC tablet, Take 1 tablet by mouth daily., Disp: , Rfl: Atogepant (Qulipta) 30 MG tablet, Take 1 tablet by mouth daily., Disp: 90 tablet, Rfl: 3 BUDESONIDE IN, Inhale., Disp: , Rfl: Calcium Carbonate-Vitamin D 500-5 MG-MCG tablet, Take by mouth., Disp: , Rfl: carboxymethylcellulose (Artificial Tears) 1 % ophthalmic solution, 1 drop 3 times daily., Disp: , Rfl: cetirizine (ZyrTEC) 10 MG tablet, Take by mouth., Disp: , Rfl: clopidogrel (Plavix) 75 MG tablet, Take by mouth daily., Disp: , Rfl: Cyanocobalamin (B-12) 1000 MCG sublingual tablet, Place under the tongue., Disp: , Rfl: Deutetrabenazine ER (Austedo XR) 30 MG tablet sustained-release 24 hour, Take 1 tablet by mouth every morning. Do not start before July 27, 2024., Disp: 90 tablet, Rfl: 2 Deutetrabenazine ER (Austedo XR) 30 MG tablet sustained-release 24 hour, Take 1 tablet by mouth daily., Disp: 30 tablet, Rfl: 11 diazePAM (Valium) 10 MG tablet, Take 1 tablet (10 mg) by mouth Once for 1 dose. 2 hours prior to the MRI, Disp: 1 tablet, Rfl: 0 Diclofenac Sodium (Voltaren) 1 % gel, Apply topically 2 times daily., Disp: , Rfl: ferrous sulfate 325 (65 Fe) MG tablet, Take 325 mg by mouth daily (with breakfast)., Disp: , Rfl: fluticasone (Flonase) 50 MCG/ACT nasal spray, Administer 1 spray into each nostril daily. Shake gently. Before first use, prime pump. After use, clean tip and replace cap., Disp: , Rfl: FORMOTEROL FUMARATE IN, Inhale., Disp: , Rfl: gabapentin (Neurontin) 400 MG capsule, Take 400 mg by mouth 3 times daily., Disp: , Rfl: HYDROcodone-acetaminophen ([place]) 5-325 MG tablet, , Disp: , Rfl: hydrocortisone 2.5 % cream, Apply topically 2 times daily., Disp: , Rfl: hydrOXYzine HCl (Atarax) 25 MG tablet, Take by mouth., Disp: , Rfl: ibandronate (Boniva) 150 MG tablet, Take 150 mg by mouth every 30 (thirty) days. Take in morning with full glass of water on an empty stomach. No food, drink, meds, or lying down for 60 minutes after., Disp: , Rfl: lactase (Lactaid) 3000 units tablet, Take 3,000 Units by mouth in the morning and 3,000 Units at noon and 3,000 Units in the evening. Take with meals., Disp: , Rfl: lamoTRIgine (LAMICTAL PO), Take 300 mg by mouth daily., Disp: , Rfl: lamoTRIgine (LaMICtal) 200 MG tablet, Take 200 mg by mouth 2 times daily., Disp: , Rfl: levothyroxine (Synthroid, Levoxyl) 75 MCG tablet, Take by mouth every morning (before breakfast)., Disp: , Rfl: losartan (Cozaar) 25 MG tablet, Take by mouth., Disp: , Rfl: magnesium oxide (Mag-Ox) 400 mg tablet, 400 mg daily., Disp: , Rfl: meclizine (Antivert) 12.5 MG tablet, Take 12.5 mg by mouth 3 times daily as needed for dizziness., Disp: , Rfl: Multiple Vitamin (multivitamin) capsule, Take 1 capsule by mouth daily., Disp: , Rfl: nystatin (Mycostatin) 698401 UNIT/GM powder, Apply topically 2 times daily., Disp: , Rfl: polycarbophil (Fiber-Lax) 625 MG tablet, Take by mouth daily., Disp: , Rfl: polyethylene glycol, PEG, 3350 (Miralax) 17 g packet, Take by mouth., Disp: , Rfl: prednisoLONE sodium phosphate (Inflamase Forte) 1 % ophthalmic solution, 1 drop in the morning and 1 drop at noon and 1 drop in the evening and 1 drop before bedtime., Disp: , Rfl: promethazine (Phenergan) 25 MG tablet, Take by mouth., Disp: , Rfl: RABEprazole (Aciphex) 20 MG EC tablet, Take by mouth. Do not crush, chew, or split., Disp: , Rfl: rosuvastatin (Crestor) 5 MG tablet, Take 5 mg by mouth daily., Disp: , Rfl: sucralfate (Carafate) 1 g tablet, Take by mouth 4 times daily (before meals and nightly)., Disp: , Rfl: tiZANidine (Zanaflex) 4 MG capsule, Take 4 mg by mouth 3 times daily., Disp: , Rfl: tiZANidine (Zanaflex) 6 MG capsule, Take by mouth 3 times daily., Disp: , Rfl: triamcinolone (Kenalog) 0.1 % cream, Apply topically 2 times daily., Disp: , Rfl: valbenazine tosylate (Ingrezza) 40 MG capsule, Take 1 capsule (40 mg) by mouth daily., Disp: 90 capsule, Rfl: 1 VITAMIN D PO, Take by mouth., Disp: , Rfl: TECHNICAL ASPECTS: This routine scalp EEG study without video was carried out. Scalp electrodes were positioned in person by an x ray technologist, following patient education, according to the 10-20 International systemof electrode placement and maintained for integrity and quality of the recording. EEG data with video was recorded continuously and digitally stored. The x ray technologist reviewed all automated detections and manual events and prepared the data for archiving and provider review. Referential and bipolar montages were used for review. The recording lasted for over 61.5 minutes. TECHNOLOGIST NOTES: There was no history of skull defect. BACKGROUND ACTIVITY: Posterior background activity: A continuous organized and well-modulated 7 Hz rhythm was seen symmetrically over the posterior head regions bilaterally. Beta range: Fronto-centrally predominant beta range activity (15-25 Hz, 10-20 uV) was seen. Sleep: N2 sleep was reached as evidenced by the appearance of vertex waves and sleep spindles seen symmetrically over the central head regions bilaterally. Normal Variants: No normal variants were identified. SLOWING: Her waking background rhythm was never more than 7 Hz INTERICTAL EPILEPTIFORM ACTIVITY: No epileptiform activity was seen. ICTAL ACTIVITY: No ictal activity was seen. NON-EPILEPTIC EVENTS: There was movement, talking, and sweat artifacts during the recording. IMPRESSION: This is a mildly abnormal awake and sleep EEG. Her waking background rhythm is mildly slower than normal. [facility]10-15-2024 Procedure note* Robby Napier MD - 08/15/2024 12:00 PM EDTAssociated Order(s): EEG EXTENDED MORE THAN 1 HOUR Procedure(s): EEG EXTENDED MORE THAN 1 HOUR Pre-Procedure Diagnose(s): Syncope and collapse Post-Procedure Diagnose(s): Syncope and collapse EEG REPORT Patient Name: Steve Fagan : 1955 PROVIDER REQUESTING STUDY: Dr. Napier REASON FOR EXAM: syncope and collapse HISTORY: Steve Fagan is a 69 y.o. with history of syncope and collapse MEDICATIONS: Current Outpatient Medications: Acetaminophen (TYLENOL 8 HOUR PO), Take by mouth., Disp: , Rfl: albuterol (2.5 MG/3ML) 0.083% nebulizer solution, , Disp: , Rfl: ammonium lactate (Amlactin) 12 % cream, APPLY TO ELBOWS ONCE A DAY, Disp: , Rfl: aspirin 81 MG EC tablet, Take 1 tablet by mouth daily., Disp: , Rfl: Atogepant (Qulipta) 30 MG tablet, Take 1 tablet by mouth daily., Disp: 90 tablet, Rfl: 3 BUDESONIDE IN, Inhale., Disp: , Rfl: Calcium Carbonate-Vitamin D 500-5 MG-MCG tablet, Take by mouth., Disp: , Rfl: carboxymethylcellulose (Artificial Tears) 1 % ophthalmic solution, 1 drop 3 times daily., Disp: , Rfl: cetirizine (ZyrTEC) 10 MG tablet, Take by mouth., Disp: , Rfl: clopidogrel (Plavix) 75 MG tablet, Take by mouth daily., Disp: , Rfl: Cyanocobalamin (B-12) 1000 MCG sublingual tablet, Place under the tongue., Disp: , Rfl: Deutetrabenazine ER (Austedo XR) 30 MG tablet sustained-release 24 hour, Take 1 tablet by mouth every morning. Do not start before July 27, 2024., Disp: 90 tablet, Rfl: 2 Deutetrabenazine ER (Austedo XR) 30 MG tablet sustained-release 24 hour, Take 1 tablet by mouth daily., Disp: 30 tablet, Rfl: 11 diazePAM (Valium) 10 MG tablet, Take 1 tablet (10 mg) by mouth Once for 1 dose. 2 hours prior to the MRI, Disp: 1 tablet, Rfl: 0 Diclofenac Sodium (Voltaren) 1 % gel, Apply topically 2 times daily., Disp: , Rfl: ferrous sulfate 325 (65 Fe) MG tablet, Take 325 mg by mouth daily (with breakfast)., Disp: , Rfl: fluticasone (Flonase) 50 MCG/ACT nasal spray, Administer 1 spray into each nostril daily. Shake gently. Before first use, prime pump. After use, clean tip and replace cap., Disp: , Rfl: FORMOTEROL FUMARATE IN, Inhale., Disp: , Rfl: gabapentin (Neurontin) 400 MG capsule, Take 400 mg by mouth 3 times daily., Disp: , Rfl: HYDROcodone-acetaminophen ([place]) 5-325 MG tablet, , Disp: , Rfl: hydrocortisone 2.5 % cream, Apply topically 2 times daily., Disp: , Rfl: hydrOXYzine HCl (Atarax) 25 MG tablet, Take by mouth., Disp: , Rfl: ibandronate (Boniva) 150 MG tablet, Take 150 mg by mouth every 30 (thirty) days. Take in morning with full glass of water on an empty stomach. No food, drink, meds, or lying down for 60 minutes after., Disp: , Rfl: lactase (Lactaid) 3000 units tablet, Take 3,000 Units by mouth in the morning and 3,000 Units at noon and 3,000 Units in the evening. Take with meals., Disp: , Rfl: lamoTRIgine (LAMICTAL PO), Take 300 mg by mouth daily., Disp: , Rfl: lamoTRIgine (LaMICtal) 200 MG tablet, Take 200 mg by mouth 2 times daily., Disp: , Rfl: levothyroxine (Synthroid, Levoxyl) 75 MCG tablet, Take by mouth every morning (before breakfast)., Disp: , Rfl: losartan (Cozaar) 25 MG tablet, Take by mouth., Disp: , Rfl: magnesium oxide (Mag-Ox) 400 mg tablet, 400 mg daily., Disp: , Rfl: meclizine (Antivert) 12.5 MG tablet, Take 12.5 mg by mouth 3 times daily as needed for dizziness., Disp: , Rfl: Multiple Vitamin (multivitamin) capsule, Take 1 capsule by mouth daily., Disp: , Rfl: nystatin (Mycostatin) 167470 UNIT/GM powder, Apply topically 2 times daily., Disp: , Rfl: polycarbophil (Fiber-Lax) 625 MG tablet, Take by mouth daily., Disp: , Rfl: polyethylene glycol, PEG, 3350 (Miralax) 17 g packet, Take by mouth., Disp: , Rfl: prednisoLONE sodium phosphate (Inflamase Forte) 1 % ophthalmic solution, 1 drop in the morning and 1 drop at noon and 1 drop in the evening and 1 drop before bedtime., Disp: , Rfl: promethazine (Phenergan) 25 MG tablet, Take by mouth., Disp: , Rfl: RABEprazole (Aciphex) 20 MG EC tablet, Take by mouth. Do not crush, chew, or split., Disp: , Rfl: rosuvastatin (Crestor) 5 MG tablet, Take 5 mg by mouth daily., Disp: , Rfl: sucralfate (Carafate) 1 g tablet, Take by mouth 4 times daily (before meals and nightly)., Disp: , Rfl: tiZANidine (Zanaflex) 4 MG capsule, Take 4 mg by mouth 3 times daily., Disp: , Rfl: tiZANidine (Zanaflex) 6 MG capsule, Take by mouth 3 times daily., Disp: , Rfl: triamcinolone (Kenalog) 0.1 % cream, Apply topically 2 times daily., Disp: , Rfl: valbenazine tosylate (Ingrezza) 40 MG capsule, Take 1 capsule (40 mg) by mouth daily., Disp: 90 capsule, Rfl: 1 VITAMIN D PO, Take by mouth., Disp: , Rfl: TECHNICAL ASPECTS: This routine scalp EEG study without video was carried out. Scalp electrodes were positioned in person by an x ray technologist, following patient education, according to the 10-20 International systemof electrode placement and maintained for integrity and quality of the recording. EEG data with video was recorded continuously and digitally stored. The x ray technologist reviewed all automated detections and manual events and prepared the data for archiving and provider review. Referential and bipolar montages were used for review. The recording lasted for over 61.5 minutes. TECHNOLOGIST NOTES: There was no history of skull defect. BACKGROUND ACTIVITY: Posterior background activity: A continuous organized and well-modulated 7 Hz rhythm was seen symmetrically over the posterior head regions bilaterally. Beta range: Fronto-centrally predominant beta range activity (15-25 Hz, 10-20 uV) was seen. Sleep: N2 sleep was reached as evidenced by the appearance of vertex waves and sleep spindles seen symmetrically over the central head regions bilaterally. Normal Variants: No normal variants were identified. SLOWING: Her waking background rhythm was never more than 7 Hz INTERICTAL EPILEPTIFORM ACTIVITY: No epileptiform activity was seen. ICTAL ACTIVITY: No ictal activity was seen. NON-EPILEPTIC EVENTS: There was movement, talking, and sweat artifacts during the recording. IMPRESSION: This is a mildly abnormal awake and sleep EEG. Her waking background rhythm is mildly slower than normal. documented in this [facility]10-02-2024 Telephone encounter Note* Telephone Encounter - Aditi Daley - 08/02/2024 10:44 AM EDT Message released to patient as written. Patient's further questions if applicable: FYI: Patient states that she scheduled her EEG for 08/15/24 and is seeing her PCP on 08/03/24. Patient states that she wants to make sure that Dr. Napier is aware of her discontinuing her Qulipta. Were all questions from office addressed or relayed to the patient from encounter: Yes [id number] Miscellaneous Notes* Telephone Encounter - Aditi Brito - 08/02/2024 10:44 AM EDT Message released to patient as written. Patient's further questions if applicable: FYI: Patient states that she scheduled her EEG for 08/15/24 and is seeing her PCP on 08/03/24. Patient states that she wants to make sure that Dr. Napier is aware of her discontinuing her Qulipta. Were all questions from office addressed or relayed to the patient from encounter: Yes * Telephone Encounter - Linda Jordan MA - 08/02/2024 8:06 AM EDT Lm for patient to call the office back, please relay providers message. She can call [facility] to schedule the EEG [phone] * Telephone Encounter - Robby Napier MD - 08/01/2024 5:02 PM EDT Please have her on a cancellation list to see her sooner. Will order an EEG to check for seizures. She should discuss the passing out with her PCP. * Telephone Encounter - Danny Mchugh LPN - 08/01/2024 4:56 PM EDT Forwarding to provider for review and advice. * Telephone Encounter - Duncan Hair - 08/01/2024 3:30 PM EDT Name of caller: Steve Contact phone number: [phone] Relationship to Patient: patient Provider: Dr. Napier Practice: Neurology Chief Complaint/Reason for Call: Steve called to advise Dr. Napier of what has been happening with her. Steve stated that on Wednesday she usually receives communion. Steve stated that she couldnot say the prayer, as she was confused, and it was garbled, then she passed out. They patted her on the cheek and she woke up and received communion. Steve stated that she was fine after that. Steve advised that after she started on the Qlipta she was very sick and it did not help the migraines. Steve went to see her PCP and he took her off of the Qlipta on 07/27/24. Please be advised. Best time of day caller can be reached: any Patient advised that office/PCP has 24-48 business hours to return their call: Yes documented in this [facility] [id number] Telephone encounter Note* Telephone Encounter - Linda Jordan MA - 08/02/2024 8:06 AM EDT Lm for patient to call the office back, please relay providers message. She can call [facility] to schedule the EEG [phone] [facility] [id number] Telephone encounter Note* Telephone Encounter - Robby Napier MD - 08/01/2024 5:02 PM EDT Please have her on a cancellation list to see her sooner. Will order an EEG to check for seizures. She should discuss the passing out with her PCP. [facility] [id number] Miscellaneous Notes* Telephone Encounter - Robby Napier MD - 08/01/2024 5:02 PM EDT Please have her on a cancellation list to see her sooner. Will order an EEG to check for seizures. She should discuss the passing out with her PCP. * Telephone Encounter - Danny Mchugh LPN - 08/01/2024 4:56 PM EDT Forwarding to provider for review and advice. * Telephone Encounter - Duncan Hair - 08/01/2024 3:30 PM EDT Name of caller: Steve Contact phone number: [phone] Relationship to Patient: patient Provider: Dr. Napier Practice: Neurology Chief Complaint/Reason for Call: Steve called to advise Dr. Napier of what has been happening with her. Steve stated that on Wednesday she usually receives communion. Steve stated that she couldnot say the prayer, as she was confused, and it was garbled, then she passed out. They patted her on the cheek and she woke up and received communion. Steve stated that she was fine after that. Steve advised that after she started on the Qlipta she was very sick and it did not help the migraines. Steve went to see her PCP and he took her off of the Qlipta on 07/27/24. Please be advised. Best time of day caller can be reached: any Patient advised that office/PCP has 24-48 business hours to return their call: Yes documented in this encounterSProvidence [id number] Telephone encounter Note* Telephone Encounter - Danny Mchugh LPN - 08/01/2024 4:56 PM EDT Forwarding to provider for review and advice. [facility] [id number] Telephone encounter Note* Telephone Encounter - Duncan Hair - 08/01/2024 3:30 PM EDT Name of caller: Steve Contact phone number: [phone] Relationship to Patient: patient Provider: Dr. Napier Practice: Neurology Chief Complaint/Reason for Call: Steve called to advise Dr. Napier of what has been happening with her. Steve stated that on Wednesday she usually receives communion. Steve stated that she couldnot say the prayer, as she was confused, and it was garbled, then she passed out. They patted her on the cheek and she woke up and received communion. Steve stated that she was fine after that. Steve advised that after she started on the Qlipta she was very sick and it did not help the migraines. Steve went to see her PCP and he took her off of the Qlipta on 07/27/24. Please be advised. Best time of day caller can be reached: any Patient advised that office/PCP has 24-48 business hours to return their call: Yes [facility] [id number] Telephone encounter Note* Telephone Encounter - Linda Jordan MA - 07/20/2024 12:54 PM EDT Cher has been notified [facility] [id number] Miscellaneous Notes* Telephone Encounter - Linda Jordan MA - 07/20/2024 12:54 PM EDT Cher has been notified * Telephone Encounter - Linda Jordan MA - 07/20/2024 8:26 AM EDT Lm for Yahir Magallon nurse to call the office back, please relay providers message. * Addendum Note - Robby Napier MD - 07/19/2024 1:49 PM EDTAddended by: ROBBY NAPIER on: 07/19/2024 01:49 PM Modules accepted: Orders * Telephone Encounter - Robby Napier MD - 07/19/2024 1:49 PM EDT Tell them to cancel my order and just use her promethazine * Telephone Encounter - Aditi Daley - 07/19/2024 1:42 PM EDT Name of caller: Cher Contact phone number: [phone] Relationship to Patient: [facility] Provider: Dr. Napier Practice: [facility] Neurology [place] Chief Complaint/Reason for Call: Chre states that their pharmacy received a script for ondansetron ODT (Zofran-ODT) 4 MG disintegrating tablet and the patient is allergic to it. Cher states that the patient already takes Phenergan, routinely. Please advise. Best time of day caller can be reached: Any Patient advised that office/PCP has 24-48 business hours to return their call: No * Telephone Encounter - Linda Jordan MA - 07/19/2024 10:44 AM EDT Lm for Elgin to call the office back, please relay providers message. * Telephone Encounter - Robby Napier MD - 07/19/2024 10:27 AM EDT I sent a prescription for ondansetron to take for the headache with nausea. I sent in a five day Rxof prednisone to shut down the headache. Please re-schedule the MRI or make sure MRI does that. * Telephone Encounter - Maryjane Molina - 07/19/2024 8:01 AM EDT Name of caller: Elgin Contact phone number: [phone] Relationship to Patient: POA Provider: Karthikeyan Practice: Neurology [facility] Chief Complaint/Reason for Call: Elgin called back and is reporting that patient called her this morning complaining of the worst migraine that she has ever had. Elgin states that she has still been nauseous and having difficulty keeping food down (only eating crackers and broth for fear of vomiting) since starting the Qulipta. Has to cancel her MRI on 07/17/24 due to the nausea and inability to be still for it to be completed. Elgin states they will have to reschedule the MRI. She is requesting a call back to discuss what needs to be done in regards to the nausea and the medication - patient is still taking the Qulipta as the facility is still administering the medication until provider advises otherwise. Best time of day caller can be reached: Any Patient advised that office/PCP has 24-48 business hours to return their call: No * Telephone Encounter - Duncan Hair - 07/17/2024 1:34 PM EDT Name of caller: Elgin Contact phone number: [phone] Relationship to Patient: family member patient and daughter Provider: Dr. Napier Practice: [facility] Neurology Chief Complaint/Reason for Call: Elgin called in to advise Dr. Napier that her mother started the Qulipta on Wednesday, and by Wednesday at noon she started having nausea. Elgin advised that this just progressively got worse and today she cannot hold food down and is vomiting. Elgin stated that the headaches went away, and the eye closing improved, but she is concerned with the nausea and vomiting. Elgin wouldlike to know if this is normal with this med, or is the dose too high, or does it need to be stopped? Please contact Elgin and advise. Best time of day caller can be reached: any Patient advised that office/PCP has 24-48 business hours to return their call: Yes documented in this encounterSProvidence [id number] Telephone encounter Note* Telephone Encounter - Linda Jordan MA - 07/20/2024 8:26 AM EDT Lm for Yahir Magallon nurse to call the office back, please relay providers message. [facility] [id number] Hospital Discharge instructions Patient Education 07/20/2024 00:58:49 Headache, Unspecified Headache, Unspecified A number of things can cause headaches. The cause of your headache isn t clear. But it doesn t seemto be a sign of any serious illness. Headache affects almost everyone at some time. It is the most common reason people miss days from work or school. You could have a tension headache or a migraine headache. Stress can cause a tension headache. This can happen if you tense the muscles of your shoulders, neck, and scalp without knowing it. If this stress lasts long enough, you may develop a tension headache. It is not clear why migraines occur, but certain things called" triggers" can raise the risk of having a migraine attack. Migraine triggers may include emotional stress or depression, or by hormone changes during the menstrual cycle. Other triggers include control pills and other medicines, alcohol or caffeine, foods with tyramine (such as aged cheese, wine), eyestrain, weather changes, missed meals, and lack of sleep or oversleeping. Other causes of headache include: Viral illness with high fever Head injury with concussion Sinus, ear, or throat infection Dental pain and jaw joint (TMJ) pain More serious but less common causes of headache include stroke, brain hemorrhage, brain tumor, meningitis, and encephalitis. Home care Follow these tips when taking care of yourself at home: Don t drive yourself home if you were given pain medicine for your headache. Instead, have someone else drive you home. Try to sleep when you get home. You should feel much better when you wake up. Apply heat to the back of your neck to ease a neck muscle spasm. Take care of a migraine headache by putting an ice pack on your forehead or at the base of your skull. If you have nausea or vomiting, eat a light diet until your headache eases. If you have a migraine headache, use sunglasses when in the daylight or around bright indoor lighting until your symptoms get better. Bright glaring light can make this type of headache worse. Follow-up care Follow up with your healthcare provider, or as advised. Talk with your provider if you have frequent headaches. He or she can help figure out a treatment plan. By knowing the earliest signs of headache, and starting treatment right away, you may be able to stop the pain yourself. When to seek medical advice Call your healthcare provider right away if any of these occur: Your head pain suddenly gets worse after sexual intercourse or strenuous activity Your head pain doesn t get better within 24 hours You aren t able to keep liquids down (repeated vomiting) Fever of 100.4 F (38 C) or higher, or as directed by your healthcare provider Stiff neck Extreme drowsiness, confusion, or fainting Dizziness or dizziness with spinning sensation (vertigo) Weakness in an arm or leg or one side of your face You have trouble talking or seeing [phone] [employer] [address] [place] [address]. All rights reserved. This information is not intended as a substitute for professional medical care. Always follow yourthe [facility] professional's instructions. 07/20/2024 00:55:01 Dizziness, Uncertain Cause Dizziness (Uncertain Cause) Dizziness is a common symptom. It may be described as lightheadedness, spinning, or feeling like you are going to faint. Dizziness can have many causes. Be sure to tell the healthcare provider about: All medicines you take, including prescription, [id number], herbs, and supplements Any other symptoms you have Any health problems you are being treated for Any past major health problems you've had, such as a heart attack, balance issues, hearing problems, or blood pressure problems Anything that causes the dizziness to get worse or better Today's exam did not show an exact cause for your dizziness. Other tests may be needed. Follow up with your healthcare provider. Home care Dizziness that occurs with sudden standing may be a sign of mild dehydration. Drink extra fluids for the next few days. If you recently started a new medicine, stopped a medicine, or had the dose of a current medicine changed, talk with the prescribing healthcare provider. Your medicine plan may need adjustment. If dizziness lasts more than a few seconds, sit or lie down until it passes. This may help prevent injury in case you pass out. Get up slowly when you feel better. Don't drive or use power tools or dangerous equipment until you have had no dizziness for at least 48 hours. Follow-up care Follow up with your healthcare provider for further evaluation within the next 7 days or as advised. When to seek medical advice Call your healthcare provider for any of the following: Worsening of symptoms or new symptoms Passing out or seizure Repeated vomiting Headache Palpitations (the sense that your heart is fluttering or beating fast or hard) Shortness of breath Blood in vomit or stool (black or red color) Weakness of an arm or leg or 1 side of the face Vision or hearing changes Trouble walking or speaking Chest, arm, neck, back, or jaw pain [id number] [employer] [address] [place] [address]. All rights reserved. This information is not intended as a substitute for professional medical care. Always follow yourhealthcare professional's instructions. 07/20/2024 00:54:48 Hyperkalemia Hyperkalemia Hyperkalemia is too much potassium in the blood. This most often occurs in people who take certain medicines or people with kidney disease. This condition often has no symptoms until levels of potassium become high. If symptoms do occur, they include muscle weakness and changes in the heartbeat. A blood test is done to diagnose the problem. An ECG (electrocardiogram) may also be done to test the heartbeat. If hyperkalemia is caused by a medicine, the healthcare provider may lower the dose or switch to a different medicine. A low-potassium diet may also be prescribed. Home care Be sure your healthcare provider knows about all of the medicines you take. Follow your healthcare provider's advice about making changes to your medicines. If a low-potassium diet has been prescribed, follow this closely. If you need help, ask to be referred to a dietitian for advice on how to follow this diet. Follow-up care Follow up with your healthcare provider. You may need a repeat blood test within the next 7 days. Schedule this as advised. When to seek medical advice Call your healthcare provider right away if any of the following occur: Weakness, dizziness, or lightheadedness Nausea, vomiting, or diarrhea Urinating only in small amounts or not urinating Symptoms don't go away or get worse Call 911 Call 911 if any of the following occur: Fast or irregular heartbeat Fainting Severe shortness of breath Chest, arm, shoulder, neck or upper back pain Trouble controlling your muscles [phone] [employer] [address] [place] [address]. All rights reserved. This information is not intended as a substitute for professional medical care. Always follow yourhealthcare professional's instructions. Follow Up Care 07/19/2024 23:22:46 With:MARCIO SELF Address: [address] [place] [address]- Business (1) When:2-4 days Comments:Follow-up as needed if symptoms persist.Drink plenty of fluids.Continue routine home medications.Use Lokelma as prescribed to bring down potassium level.Return to the ED if symptoms worsen. [facility] 09-19-2024 Note Discharge Instructions Thank you for allowing [facility] to assist you with your healthcare needs. The following is importantdischarge information regarding your hospital visit. What to Do Next Instructions from Your Care Team No qualifying data available. Post Acute Orders No qualifying data available. You Need to Schedule the Following Appointments Follow Up with MARCIO SELF When:Within 2-4 days Where:[address] [place] [address]- [employer] (1) Additional Information: Follow-up as needed if symptoms persist. Drink plenty of fluids. Continue routine home medications. Use Lokelma as prescribed bring down potassium level. Return to the ED if symptoms worsen. Allergies Alvesco difficulty breathing Amitiza Vomiting Animal Dander unknown Aspartame Itching Benadryl Benedryl Allergy Sinus break out Botox tongue feels itchy Carrots Itching Dust unknown Geodon Movement Iron "deathly ill" Levaquin itching Lyrica unable to open eyes Mold unknown Topamax hallucinations Zoloft baclofen Vomiting codeine unknown erythromycin chest pain fentaNYL Vomiting imipramine Visual hallucinations, Urticaria lithium oxyCODONE Vomiting oxyMORphone Vomiting, Abdominal pain penicillin rash propantheline Unknown seasonal enviromental sertraline Vomiting, Vomiting, Upset stomach, Dizziness sulfa drug nauseated Medications Please ask your primary doctor or pharmacist before taking any other medication not listed, including over the counter drugs, herbal medications, vitamins and or supplements as they may interact withyour home medications. What How Much When Why Instructions Last Dose New sodium zirconium cyclosilicate (Lokelma 10 g oralpowder for reconstitution) 1 Packet(s) by mouth Three (3) times a day Duration: 24 Hours do not take within 2 hours of other medications Printed Prescription Unchanged acetaminophen (Acetaminophen Extra Strength Gelcaps 500 mg) 2 tab(s) by mouth Two (2) times a day as needed for as needed for pain Duration: 30 Days Unchanged acetaminophen-hydrocodone ([place] 325- 5 mg oral tablet) 1 tab(s) by mouth Three (3) times a day Osteoarthritis of left shoulder Fibromyalgia Duration: 30 Days routine Unchanged albuterol (ProAir HFA MDI (90 mcg/ inh) inhalation aerosol) 2 puff(s) by inhalation Four (4) times a day as needed for as needed for wheezing Duration: 30 Days Unchanged albuterol-ipratropium (albuterol-ipratropium 2.5 mg-0.5 mg/ 3 mL inhalation solution) Nebulized inhalation Four (4) times a day Unchanged aluminum hydroxide-magnesium hydroxide (aluminum hydroxide-magnesium hydroxide 200 mg-200mg/ 5 mL oral suspension) by mouth Every 4 hours Unchanged ammonium lactate topical (ammonium lactate 12% topical cream) Topical Two (2) times a day prn Unchanged aspirin (Aspirin Enteric Coated 81 mg oral delayed release tablet) See instructions TAKE ONE TABLET BY MOUTH EVERY DAY Unchanged budesonide (Pulmicort Respules 0.5 mg/ 2 mL inhalation suspension) 2 Milliliter by inhalation Once a day Unchanged calcium-vitamin D (Os-Satnam Calcium+D3 500 mg-5 mcg (200 intl units) oral tablet) 1 tab(s) by mouth Two (2) times a day Unchanged cetirizine (Zyrtec 10 mg oral tablet) 1 tab(s) by mouth Once a day Unchanged clopidogrel (clopidogrel 75 mg oral tablet) 1 tab(s) by mouth Once a day Unchanged cyanocobalamin (cyanocobalamin 1000 mcg/ mL injectable solution) See instructions 1 mL Intramuscular 30 day(s) Once a month Unchanged diclofenac topical (diclofenac 1% topical gel) 8 gram(s) Topical Four (4) times a day Knee pain, bilateral Bilateral shoulder pain Lumbar degenerative disc disease Duration: 30 Days not to exceed 32 grams/ day Unchanged ferrous sulfate (ferrous sulfate 325 mg (65 mg elemental iron) oral delayed release tablet) 1 tab(s) by mouth Once a day Unchanged fluticasone nasal (fluticasone proprionate NASAL 50 mcg/ spray) 2 spray(s) in the nose Once a day Duration: 90 Days Unchanged formoterol (formoterol 20 mcg/ 2 mL inhalation solution) 2 Milliliter by inhalation Two (2) times a day Osteoporosis Back pain LINCARE Unchanged gabapentin (gabapentin 400 mg oral capsule) 1 cap by mouth Three (3) times a day Neuropathy Duration: 90 Days Unchanged hydrocortisone topical (hydrocortisone 2.5% topical cream) See instructions Topical BID PRN Unchanged hydrOXYzine (hydrOXYzine pamoate 25 mg oral capsule) 1 cap by mouth Every 12 hours Unchanged ibandronate (Boniva 150 mg oral tablet) 1 tab(s) by mouth Once a month Osteoporosis Back pain Unchanged lactase See instructions Unchanged lamoTRIgine (lamoTRIgine 200 mg oral tablet) 1 tab(s) by mouth Two (2) times a day Unchanged lamoTRIgine (lamoTRIgine 300 mg oral tablet, extended release) 1 tab(s) by mouth Daily at bedtime Unchanged levothyroxine (Synthroid 75 mcg (0.075 mg) oral tablet) 1 tab(s) by mouth Once a day Unchanged losartan (losartan 25 mg oral tablet) 1 tab(s) by mouth Once a day Duration: 30 Days Unchanged magnesium oxide (magnesium oxide 400 mg oral capsule) 1 cap by mouth Once a day Unchanged meclizine (meclizine 12.5 mg oral tablet) 1 tab(s) by mouth Two (2) times a day Unchanged meclizine (meclizine 25 mg oral tablet) 0.5 tab(s) by mouth Two (2) times a day as needed for as needed for dizziness Duration: 30 Days Unchanged multivitamin (Multivitamin) 1 tab(s) by mouth Every day Unchanged nystatin topical (nystatin 100,000 units/ g topical powder) Topical Three (3) times a day Unchanged ocular lubricant (Artificial Tears ophthalmic solution) 1 Drops Both eyes Two (2) times a day as needed for as needed for dry eyes Unchanged polycarbophil (Fiberlax 625 mg oral tablet) 1 tab(s) by mouth Four (4) times a day Unchanged polyethylene glycol 3350 (MiraLax oral powder for reconstitution) 17 gram(s) by mouth Two (2) times a day Unchanged promethazine (promethazine 25 mg oral tablet) 1 tab(s) by mouth Every 6 hours as needed for for nausea/vomiting Duration: 30 Days Unchanged RABEprazole (RABEprazole 20 mg oral delayed release enteric coated tablet) 1 tab(s) by mouth Two (2) times a day Unchanged rosuvastatin (rosuvastatin 5 mg oral tablet) 1 tab(s) by mouth Once a day Cerebral palsy Vertigo Unchanged sucralfate (sucralfate 1 g oral tablet) 1 tab(s) by mouth Two (2) times a day Unchanged tiZANidine (tiZANidine 2 mg oral tablet) 2-3 tabs by mouth Two (2) times a day Asterixis Hypothyroidism Duration: 30 Days 4 mg at noon, 6 mg at bedtime Unchanged triamcinolone topical (triamcinolone 0.1% topical paste) by mouth Please take this list to your next doctor s visit. Bring all medications you take, including over the counter medications, herbals and other supplements with you to your doctor s visit. Patients and families are reminded to discard old lists and to update any records with all medication providers or retail pharmacies. Education Materials Headache, Unspecified A number of things can cause headaches. The cause of your headache isn t clear. But it doesn t seemto be a sign of any serious illness. Headache affects almost everyone at some time. It is the most common reason people miss days from work or school. You could have a tension headache or a migraine headache. Stress can cause a tension headache. This can happen if you tense the muscles of your shoulders, neck, and scalp without knowing it. If this stress lasts long enough, you may develop a tension headache. It is not clear why migraines occur, but certain things called" triggers" can raise the risk of having a migraine attack. Migraine triggers may include emotional stress or depression, or by hormone changes during the menstrual cycle. Other triggers include control pills and other medicines, alcohol or caffeine, foods with tyramine (such as aged cheese, wine), eyestrain, weather changes, missed meals, and lack of sleep or oversleeping. Other causes of headache include: Viral illness with high fever Head injury with concussion Sinus, ear, or throat infection Dental pain and jaw joint (TMJ) pain More serious but less common causes of headache include stroke, brain hemorrhage, brain tumor, meningitis, and encephalitis. Home care Follow these tips when taking care of yourself at home: Don t drive yourself home if you were given pain medicine for your headache. Instead, have someone else drive you home. Try to sleep when you get home. You should feel much better when you wake up. Apply heat to the back of your neck to ease a neck muscle spasm. Take care of a migraine headache by putting an ice pack on your forehead or at the base of your skull. If you have nausea or vomiting, eat a light diet until your headache eases. If you have a migraine headache, use sunglasses when in the daylight or around bright indoor lighting until your symptoms get better. Bright glaring light can make this type of headache worse. Follow-up care Follow up with your healthcare provider, or as advised. Talk with your provider if you have frequent headaches. He or she can help figure out a treatment plan. By knowing the earliest signs of headache, and starting treatment right away, you may be able to stop the pain yourself. When to seek medical advice Call your healthcare provider right away if any of these occur: Your head pain suddenly gets worse after sexual intercourse or strenuous activity Your head pain doesn t get better within 24 hours You aren t able to keep liquids down (repeated vomiting) Fever of 100.4 F (38 C) or higher, or as directed by your healthcare provider Stiff neck Extreme drowsiness, confusion, or fainting Dizziness or dizziness with spinning sensation (vertigo) Weakness in an arm or leg or one side of your face You have trouble talking or seeing 5333-3314 [employer] [address] [place], [place] [id number]. All rights reserved. This information is not intended as a substitute for professional medical care. Always follow yourhealthcare professional's instructions. Dizziness (Uncertain Cause) Dizziness is a common symptom. It may be described as lightheadedness, spinning, or feeling like you are going to faint. Dizziness can have many causes. Be sure to tell the healthcare provider about: All medicines you take, including prescription, [id number], herbs, and supplements Any other symptoms you have Any health problems you are being treated for Any past major health problems you've had, such as a heart attack, balance issues, hearing problems, or blood pressure problems Anything that causes the dizziness to get worse or better Today's exam did not show an exact cause for your dizziness. Other tests may be needed. Follow up with your healthcare provider. Home care Dizziness that occurs with sudden standing may be a sign of mild dehydration. Drink extra fluids for the next few days. If you recently started a new medicine, stopped a medicine, or had the dose of a current medicine changed, talk with the prescribing healthcare provider. Your medicine plan may need adjustment. If dizziness lasts more than a few seconds, sit or lie down until it passes. This may help prevent injury in case you pass out. Get up slowly when you feel better. Don't drive or use power tools or dangerous equipment until you have had no dizziness for at least 48 hours. Follow-up care Follow up with your healthcare provider for further evaluation within the next 7 days or as advised. When to seek medical advice Call your healthcare provider for any of the following: Worsening of symptoms or new symptoms Passing out or seizure Repeated vomiting Headache Palpitations (the sense that your heart is fluttering or beating fast or hard) Shortness of breath Blood in vomit or stool (black or red color) Weakness of an arm or leg or 1 side of the face Vision or hearing changes Trouble walking or speaking Chest, arm, neck, back, or jaw pain 0159-5793 [employer] [address] [place] [address]. All rights reserved. This information is not intended as a substitute for professional medical care. Always follow yourhealthcare professional's instructions. Hyperkalemia Hyperkalemia is too much potassium in the blood. This most often occurs in people who take certain medicines or people with kidney disease. This condition often has no symptoms until levels of potassium become high. If symptoms do occur, they include muscle weakness and changes in the heartbeat. A blood test is done to diagnose the problem. An ECG (electrocardiogram) may also be done to test the heartbeat. If hyperkalemia is caused by a medicine, the healthcare provider may lower the dose or switch to a different medicine. A low-potassium diet may also be prescribed. Home care Be sure your healthcare provider knows about all of the medicines you take. Follow your healthcare provider's advice about making changes to your medicines. If a low-potassium diet has been prescribed, follow this closely. If you need help, ask to be referred to a dietitian for advice on how to follow this diet. Follow-up care Follow up with your healthcare provider. You may need a repeat blood test within the next 7 days. Schedule this as advised. When to seek medical advice Call your healthcare provider right away if any of the following occur: Weakness, dizziness, or lightheadedness Nausea, vomiting, or diarrhea Urinating only in small amounts or not urinating Symptoms don't go away or get worse Call 911 Call 911 if any of the following occur: Fast or irregular heartbeat Fainting Severe shortness of breath Chest, arm, shoulder, neck or upper back pain Trouble controlling your muscles 2795-1505 [employer] [address] [place] [address]. All rights reserved. This information is not intended as a substitute for professional medical care. Always follow yourhealthcare professional's instructions. Additional Information VACCINATE! IT SAVES LIVES! Members of the community who have not yet received the COVID-19 vaccine and would like to receive it can visit one of [facility] vaccine clinics. There are many vaccine clinic locations within the [facility]. For locations and available times, please visit www.gettheshot.coronavirus.[place].gov/. It is important to note that some COVID mobile vaccine clinics are held outdoors and may be canceled in rainy or stormy conditions. To learn more about pediatric vaccinations (ages 5-11), we invite you to visit the [facility] webpage. [email or web address]/[email or web address] [email or web address] learn more about the COVID-19 vaccine, we invite you to visit the CDC website for a list of frequently asked questions. https://www.cdc.gov/coronavirus/2019-ncov/vaccines/faq.html [facility] Patient Portal Access Instructions: Stay connected with your healthcare team and access your personal medical information anytime with the [facility] Patient Portal. If you would like a full copy of your medical records please contact the [facility] Medical Records Department Wednesday through Wednesday between 8a.m. and 4:30p.m. Please follow the directions below to access the portal: 1.Access the email account you provided upon registration to the [facility].2.Look for an invitation email from [facility].3.Open the email and access the invitation link: Accept Invitation to [facility]4.Fill in the required martinez to create your account. Sign into [email or web address] with your username and password that you created in the above steps to stay up to date. You can then view a summary of results, a summary of your visits, and the ability to download your summaries to your computer or send the information securely to a physician. Remember that your healthcare information is confidential, so carefully consider who you will allow to register on the [facility] Patient Portal for access to your information. You can also access the [facility] Patient Portal on the [employer] cullen. Simply click on "Health Records" under "HealthData" and then click on the [employer] logo. HOW TO SAFELY DISPOSE OF PRESCRIPTION MEDICATIONS Please use one of the following methods to safely dispose of your unused medications. 1.Use a drug disposal kit: the drug disposal pouch allows you to safely discard your old and unuseddrugs. Ask your nurse to give you one when you are discharged.2.Visit a local take-back location: Many local pharmacies and police departments have programs that collect old and unwanted prescriptiondrugs. Call your local pharmacy or go to http://bit.ly/1P9Uz0z to find one close to you.3.Make use of household items: Use cat litter or old coffee grounds to dispose medications if other options arenot available. Mix your drugs with these household products, seal them in an airtight container andthrow it into the garbage. Call [facility]: [phone] to be sure your drugs can be disposed of in this way. Some medicines may require a different approach.4.Never flush your medications down the toilet. IF YOU HAVE BEEN PRESCRIBED AN OPIOIDS FOR PAIN If you have been prescribed an opioid (such as hydrocodone, oxycodone or morphine), it is critical to understand the possible side effects and risks of opioid pain medications. Even when taken as directed, opioids can have several side effects including: Tolerance, meaning you might need to take more of a medication for the same pain relief. Nausea, vomiting and/or constipation. Sleepiness, dizziness, dry mouth, confusion, depression or itching. Physical dependence, meaning you have withdrawal symptoms when a medication is stopped ? this can develop within a few days. KNOW YOUR RESPONSIBILITIES It is important to know exactly how much and how often to take the opioid pain medications you are prescribed. Never take opioids in higher amounts or more often than prescribed. Do not combine opioids with alcohol or other drugs that cause drowsiness, such as benzodiazepines, also known as benzos,including diazepam and alprazolam, muscle relaxants or sleep aids. Never sell or share prescriptionopioids. This is illegal. Store opioids in a secure place and out of reach of others (including children, family, friends and visitors). The last page(s) of this document has been signed and retained as a CHART COPY Signatures Patient Education Materials Headache, Unspecified Dizziness, Uncertain Cause Hyperkalemia Medication Leaflets My discharge plan and instructions have been reviewed and explained to me and I,STEVE FAGAN understand my current condition and have read and understand these discharge instructions. I have received a written copy of the plan/instructions. If I have questions, I am aware that I should contact my doctor. 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: Date/Time: Relationship to Patient: Witness Name/Signature: Date/Time: [facility]09-18-2024 NoteSinus bradycardia RSR' in V1 or V2, right VCD or RVH Electronic Signature: NASRIN MULLINS MD 07/20/2024 00:10:[address] [place] [address] 09-18-2024 Note* Addendum Note - Robby Napier MD - 07/19/2024 1:49 PM EDTAddended by: ROBBY NAPIER on: 07/19/2024 01:49 PM Modules accepted: Orders [place] [id number] Note* Addendum Note - Robby Napier MD - 07/19/2024 1:49 PM EDTAddended by: ROBBY NAPIER on: 07/19/2024 01:49 PM Modules accepted: Orders [place] [id number] Note* Addendum Note - Robby Napier MD - 07/19/2024 1:49 PM EDTAddended by: ROBBY NAPIER on: 07/19/2024 01:49 PM Modules accepted: Orders [place] [id number] Note* Addendum Note - Robby Napier MD - 07/19/2024 1:49 PM EDTAddended by: ROBBY NAPIER on: 07/19/2024 01:49 PM Modules accepted: [id number] Note* Addendum Note - Robby Napier MD - 07/19/2024 1:49 PM EDTAddended by: ROBBY NAPIER on: 07/19/2024 01:49 PM Modules accepted: Orders [id number] Note* Addendum Note - Robby Napier MD - 07/19/2024 1:49 PM EDTAddended by: ROBBY NAPIER on: 07/19/2024 01:49 PM Modules accepted: Orders [facility] [id number] Note* Addendum Note - Robby Napier MD - 07/19/2024 1:49 PM EDTAddended by: ROBBY NAPIER on: 07/19/2024 01:49 PM Modules accepted: Orders [facility] HospitalRzuqwp23-20-1914 NoteAddended by: ROBBY NAPIER on: 07/19/2024 01:49 PM Modules accepted: [facility]09-18-2024 Telephone encounter Note* Telephone Encounter - Robby Napier MD - 07/19/2024 1:49 PM EDT Tell them to cancel my order and just use her promethazine [facility] [id number] Miscellaneous Notes* Addendum Note - Robby Napier MD - 07/19/2024 1:49 PM EDTAddended by: ROBBY NAPIER on: 07/19/2024 01:49 PM Modules accepted: Orders * Telephone Encounter - Robby Napier MD - 07/19/2024 1:49 PM EDT Tell them to cancel my order and just use her promethazine * Telephone Encounter - Aditi Daley - 07/19/2024 1:42 PM EDT Name of caller: Cher Contact phone number: [phone] Relationship to Patient: [facility] Provider: Dr. Napier Practice: [facility] [place] Chief Complaint/Reason for Call: Cher states that their pharmacy received a script for ondansetron ODT (Zofran-ODT) 4 MG disintegrating tablet and the patient is allergic to it. Cher states that the patient already takes Phenergan, routinely. Please advise. Best time of day caller can be reached: Any Patient advised that office/PCP has 24-48 business hours to return their call: No * Telephone Encounter - Linda Jordan MA - 07/19/2024 10:44 AM EDT Lm for Elgin to call the office back, please relay providers message. * Telephone Encounter - Robby Napier MD - 07/19/2024 10:27 AM EDT I sent a prescription for ondansetron to take for the headache with nausea. I sent in a five day Rxof prednisone to shut down the headache. Please re-schedule the MRI or make sure MRI does that. * Telephone Encounter - Maryjane Molina - 07/19/2024 8:01 AM EDT Name of caller: Elgin Contact phone number: [phone] Relationship to Patient: MICHELLE Provider: Karthikeyan Practice: [facility] Chief Complaint/Reason for Call: Elgin called back and is reporting that patient called her this morning complaining of the worst migraine that she has ever had. Elgin states that she has still been nauseous and having difficulty keeping food down (only eating crackers and broth for fear of vomiting) since starting the Qulipta. Has to cancel her MRI on 07/17/24 due to the nausea and inability to be still for it to be completed. Elgin states they will have to reschedule the MRI. She is requesting a call back to discuss what needs to be done in regards to the nausea and the medication - patient is still taking the Qulipta as the facility is still administering the medication until provider advises otherwise. Best time of day caller can be reached: Any Patient advised that office/PCP has 24-48 business hours to return their call: No * Telephone Encounter - Duncan Hair - 07/17/2024 1:34 PM EDT Name of caller: Elgin Contact phone number: [phone] Relationship to Patient: family member patient and daughter Provider: Dr. Napier Practice: [facility] Chief Complaint/Reason for Call: Elgin called in to advise Dr. Napier that her mother started the Qulipta on Wednesday, and by Wednesday at noon she started having nausea. Elgin advised that this just progressively got worse and today she cannot hold food down and is vomiting. Elgin stated that the headaches went away, and the eye closing improved, but she is concerned with the nausea and vomiting. Elgin wouldlike to know if this is normal with this med, or is the dose too high, or does it need to be stopped? Please contact Elgin and advise. Best time of day caller can be reached: any Patient advised that office/PCP has 24-48 business hours to return their call: Yes documented in this [facility]09-18-2024 Telephone encounter Note* Telephone Encounter - Aditi Edi - 07/19/2024 1:42 PM EDT Name of caller: Cher Contact phone number: [phone] Relationship to Patient: [facility] Provider: Dr. Napier Practice: [facility] [place] Chief Complaint/Reason for Call: Cher states that their pharmacy received a script for ondansetron ODT (Zofran-ODT) 4 MG disintegrating tablet and the patient is allergic to it. hCer states that the patient already takes Phenergan, routinely. Please advise. Best time of day caller can be reached: Any Patient advised that office/PCP has 24-48 business hours to return their call: No [facility] [id number] Telephone encounter Note* Telephone Encounter - Linda Jordan MA - 07/19/2024 10:44 AM EDT Lm for Elgin to call the office back, please relay providers message. [place] [id number] Telephone encounter Note* Telephone Encounter - Robby Napier MD - 07/19/2024 10:27 AM EDT I sent a prescription for ondansetron to take for the headache with nausea. I sent in a five day Rxof prednisone to shut down the headache. Please re-schedule the MRI or make sure MRI does that. [facility] [id number] Telephone encounter Note* Telephone Encounter - Maryjane Molina - 07/19/2024 8:01 AM EDT Name of caller: Elgin Contact phone number: [phone] Relationship to Patient: MICHELLE Provider: Karthikeyan Practice: [facility] Chief Complaint/Reason for Call: Elgin called back and is reporting that patient called her this morning complaining of the worst migraine that she has ever had. Elgin states that she has still been nauseous and having difficulty keeping food down (only eating crackers and broth for fear of vomiting) since starting the Qulipta. Has to cancel her MRI on 07/17/24 due to the nausea and inability to be still for it to be completed. Elgin states they will have to reschedule the MRI. She is requesting a call back to discuss what needs to be done in regards to the nausea and the medication - patient is still taking the Qulipta as the facility is still administering the medication until provider advises otherwise. Best time of day caller can be reached: Any Patient advised that office/PCP has 24-48 business hours to return their call: No [facility] [id number] Telephone encounter Note* Telephone Encounter - Duncan Hair - 07/17/2024 1:34 PM EDT Name of caller: Elgin Contact phone number: [phone] Relationship to Patient: family member patient and daughter Provider: Dr. Napier Practice: [facility] Neu[facility] Chief Complaint/Reason for Call: Elgin called in to advise Dr. Napier that her mother started the Qulipta on Wednesday, and by Wednesday at noon she started having nausea. Elgin advised that this just progressively got worse and today she cannot hold food down and is vomiting. Elgin stated that the headaches went away, and the eye closing improved, but she is concerned with the nausea and vomiting. Elgin wouldlike to know if this is normal with this med, or is the dose too high, or does it need to be stopped? Please contact Elgin and advisdanya. Best time of day caller can be reached: any Patient advised that office/PCP has 24-48 business hours to return their call: Yes [facility] [id number] Telephone encounter Note* Telephone Encounter - Linda Jordan MA - 07/13/2024 11:50 AM EDT patient has been notified of providers message [place] [id number] Miscellaneous Notes* Telephone Encounter - Linda Jordan MA - 07/13/2024 11:50 AM EDT patient has been notified of providers message * Telephone Encounter - Robby Napier MD - 07/13/2024 11:48 AM EDT She should avoid taking the hydrocodone and the tizanidine for about 8 hours after she takes the diazepam. * Telephone Encounter - Linda Jordan MA - 07/13/2024 8:26 AM EDT She is asking if she should avoid taking the hydrocodone and Zanaflex before the diazepam. * Telephone Encounter - Robby Napier MD - 07/12/2024 9:19 PM EDT Tell her that if she does not think that she needs the diazepam before the MRI she can choose not to take it. If she needs to take the diazepam then she should avoid taking the hydrocodone for at least 8 hours after she takes the diazepam. If there are further questions, then please have her schedule an appt with Leatha or Zenaida to review those questions. * Telephone Encounter - Sally Brantley - 07/11/2024 9:39 AM EDT Name of caller: Steve Contact phone number: [phone] Relationship to Patient: patient Provider: Dr. Napier Practice: [facility] Chief Complaint/Reason for Call: Pt states she needs a prior authorization to start for Deutetrabenazine ER (Austedo XR) 30 MG tablet sustained-release 24 hour. Pt states she was told that her insurance has denied this. Pt states to submit the information for the prior authorization to the expedited fax# [phone] [facility]. . Pt states she would like to be notified once the prior authorization has been submitted. Please review. Best time of day caller can be reached: any Patient advised that office/PCP has 24-48 business hours to return their call: Yes * Telephone Encounter - Naila Canada - 07/10/2024 3:06 PM EDT Name of caller: Steve Contact phone number: [phone] Relationship to Patient: patient Provider: Dr. Napier Practice: [facility] Chief Complaint/Reason for Call: Pt states she would like to discuss taking her medications on top off the valium she has to take for her MRI. Please advise. Best time of day caller can be reached: any Patient advised that office/PCP has 24-48 business hours to return their call: N/A documented in this encounterSProvidence HospitalZpbjjl23-42-1982 Telephone encounter Note* Telephone Encounter - Robby Napier MD - 07/13/2024 11:48 AM EDT She should avoid taking the hydrocodone and the tizanidine for about 8 hours after she takes the diazepam. [facility] [id number] Telephone encounter Note* Telephone Encounter - Linda Jordan MA - 07/13/2024 8:26 AM EDT She is asking if she should avoid taking the hydrocodone and Zanaflex before the diazepam. [facility] [id number] Telephone encounter Note* Telephone Encounter - Robby Napier MD - 07/12/2024 9:19 PM EDT Tell her that if she does not think that she needs the diazepam before the MRI she can choose not to take it. If she needs to take the diazepam then she should avoid taking the hydrocodone for at least 8 hours after she takes the diazepam. If there are further questions, then please have her schedule an appt with Leatha or Zenaida to review those questions. [place] [id number] Miscellaneous Notes* Telephone Encounter - Robby Napier MD - 07/12/2024 9:19 PM EDT Tell her that if she does not think that she needs the diazepam before the MRI she can choose not to take it. If she needs to take the diazepam then she should avoid taking the hydrocodone for at least 8 hours after she takes the diazepam. If there are further questions, then please have her schedule an appt with Leatha or Zenaida to review those questions. * Telephone Encounter - Sally Brantley - 07/11/2024 9:39 AM EDT Name of caller: Steve Contact phone number: [phone] Relationship to Patient: patient Provider: Dr. Napier Practice: [facility] Chief Complaint/Reason for Call: Pt states she needs a prior authorization to start for Deutetrabenazine ER (Austedo XR) 30 MG tablet sustained-release 24 hour. Pt states she was told that her insurance has denied this. Pt states to submit the information for the prior authorization to the expedited fax# [phone] [facility]. . Pt states she would like to be notified once the prior authorization has been submitted. Please review. Best time of day caller can be reached: any Patient advised that office/PCP has 24-48 business hours to return their call: Yes * Telephone Encounter - Naila Al Canada - 07/10/2024 3:06 PM EDT Name of caller: Steve Contact phone number: [phone] Relationship to Patient: patient Provider: Dr. Napier Practice: [facility] Chief Complaint/Reason for Call: Pt states she would like to discuss taking her medications on top off the valium she has to take for her MRI. Please advise. Best time of day caller can be reached: any Patient advised that office/PCP has 24-48 business hours to return their call: N/A documented in this [facility]09-10-2024 Telephone encounter Note* Telephone Encounter - Zulema Okeefe PharmD - 07/11/2024 3:42 PM EDT Pt prefers [facility] at [facility]. Pended Rx. [place] [id number] Miscellaneous Notes* Telephone Encounter - Zulema Okeefe PharmD - 07/11/2024 3:42 PM EDT Pt prefers Qulipta at [facility]. Pended Rx. documented in this [facility]09-10-2024 Telephone encounter Note* Telephone Encounter - Sally Brantley - 07/11/2024 9:39 AM EDT Name of caller: Steve Contact phone number: [phone] Relationship to Patient: patient Provider: Dr. Napier Practice: [facility] Chief Complaint/Reason for Call: Pt states she needs a prior authorization to start for Deutetrabenazine ER (Austedo XR) 30 MG tablet sustained-release 24 hour. Pt states she was told that her insurance has denied this. Pt states to submit the information for the prior authorization to the expedited fax# [phone] [facility]. . Pt states she would like to be notified once the prior authorization has been submitted. Please review. Best time of day caller can be reached: any Patient advised that office/PCP has 24-48 business hours to return their call: Yes [facility] [id number] Miscellaneous Notes* Telephone Encounter - Sally Brantley - 07/11/2024 9:39 AM EDT Name of caller: Steve Contact phone number: [phone] Relationship to Patient: patient Provider: Dr. Napier Practice: [facility] Chief Complaint/Reason for Call: Pt states she needs a prior authorization to start for Deutetrabenazine ER (Austedo XR) 30 MG tablet sustained-release 24 hour. Pt states she was told that her insurance has denied this. Pt states to submit the information for the prior authorization to the expedited fax# [phone] [facility]. . Pt states she would like to be notified once the prior authorization has been submitted. Please review. Best time of day caller can be reached: any Patient advised that office/PCP has 24-48 business hours to return their call: Yes * Telephone Encounter - Naila Canada - 07/10/2024 3:06 PM EDT Name of caller: Steve Contact phone number: [phone] Relationship to Patient: patient Provider: Dr. Napier Practice: [facility] Chief Complaint/Reason for Call: Pt states she would like to discuss taking her medications on top off the valium she has to take for her MRI. Please advise. Best time of day caller can be reached: any Patient advised that office/PCP has 24-48 business hours to return their call: N/A documented in this encounterSProvidence [id number] Telephone encounter Note* Telephone Encounter - Robby Napier MD - 07/10/2024 5:52 PM EDT Thank you. Rx signed [facility] [id number] Miscellaneous Notes* Telephone Encounter - Robby Napier MD - 07/10/2024 5:52 PM EDT Thank you. Rx signed * Telephone Encounter - Demond Jean Baptiste RPh - 07/07/2024 10:[address] Napier - Pt insurance has denied PA for Austedo Xr. They will not approve coverage for Austedo unless patient has tried and failed Ingrezza. If you feel Ingrezza would be an appropriate substitute,Rx is attached for approval. Due to patient complex medication history, would recommend initiating at 40mg daily and staying at that dose until follow-up appt. documented in this encounterSProvidence [id number] Telephone encounter Note* Telephone Encounter - Naila Canada - 07/10/2024 3:06 PM EDT Name of caller: Steve Contact phone number: [phone] Relationship to Patient: patient Provider: Dr. Napier Practice: [facility] [place] Chief Complaint/Reason for Call: Pt states she would like to discuss taking her medications on top off the valium she has to take for her MRI. Please advise. Best time of day caller can be reached: any Patient advised that office/PCP has 24-48 business hours to return their call: N/A [facility] [id number] Telephone encounter Note* Telephone Encounter - Demond Jean Baptiste RPh - 07/07/2024 10:[address] Napier - [place] insurance has denied PA for Austedo Xr. They will not approve coverage for Austedo unless patient has tried and failed Ingrezza. If you feel Ingrezza would be an appropriate substitute,Rx is attached for approval. Due to patient complex medication history, would recommend initiating at 40mg daily and staying at that dose until follow-up appt. [facility] [id number] Telephone encounter Note* Telephone Encounter - Linda Jordan MA - 06/30/2024 10:43 AM EDT Cher has been notified of providers message [facility] HospitalKckimh72-83-1964 Miscellaneous Notes* Telephone Encounter - Linda Jordan MA - 06/30/2024 10:43 AM EDT Cher has been notified of providers message * Telephone Encounter - Linda Jordan MA - 06/30/2024 9:14 AM EDT Lm for Cher to call the office back, please transfer her back to the office when she calls back. * Telephone Encounter - Sophy Ayala MA - 06/29/2024 4:19 PM EDT Lm for Cher to call the office back, please relay providers message. * Telephone Encounter - Robby Napier MD - 06/29/2024 4:16 PM EDT The "daily" dosing can be evening instead of morning * Telephone Encounter - Linda Jordan MA - 06/29/2024 11:43 AM EDT Cher from patient facility is asking if the Austedo can be taken in the evening instead of the morning. Please call her back [phone] Cher documented in this [place] [id number] Telephone encounter Note* Telephone Encounter - Linda Jordan MA - 06/30/2024 9:14 AM EDT Lm for Cher to call the office back, please transfer her back to the office when she calls back. [place] [id number] Telephone encounter Note* Telephone Encounter - Sophy Ayala MA - 06/29/2024 4:19 PM EDT Lm for Cher to call the office back, please relay providers message. [place] [id number] Miscellaneous Notes* Telephone Encounter - Sophy Ayala MA - 06/29/2024 4:19 PM EDT Lm for Cher to call the office back, please relay providers message. * Telephone Encounter - Robby Napier MD - 06/29/2024 4:16 PM EDT The "daily" dosing can be evening instead of morning * Telephone Encounter - Linda Jordan MA - 06/29/2024 11:43 AM EDT Cher from patient facility is asking if the Austedo can be taken in the evening instead of the morning. Please call her back [phone] Cher documented in this [place] [id number] Telephone encounter Note* Telephone Encounter - Robby Napier MD - 06/29/2024 4:16 PM EDT The "daily" dosing can be evening instead of morning [facility] [id number] Telephone encounter Note* Telephone Encounter - Linda Jordan MA - 06/29/2024 11:43 AM EDT Cher from patient facility is asking if the Austedo can be taken in the evening instead of the morning. Please call her back [phone] Cher [facility] [id number] History of Present illness Narrative* Robby Napier MD - 06/29/2024 8:30 AM EDT Images from the original note were not included. [facility] [address] [facility] [address] Dept: [phone] Dept Loc: [phone] Robby Napier MD Thank you for your kind request for a neurological consultation on this patient. CHIEF COMPLAINT: Chief Complaint Patient presents with New Patient Tremors Difficulty Walking Extremity Weakness HISTORY OF PRESENT ILLNESS: The patient is a 69 y.o. person who presents with movements that she is having movements of her arms and legs that she has trouble controlling. She reports that I have seen her in my prior practice, but I do not have my old notes. She and family report that she is having swinging type movements of the limbs, "clomping of the limbs when walking," and tendency to have trouble keeping her eyes from opening. She reports that there was a concern that she had side effects from Latuda, so that was stopped, but her movements and walking got much worse after stopping the Latuda. She reports that she saw Dr. Judd since the movements started. No dysphagia. She reports taht she is having intermittent d yspnea. She reports that she has been using a walker for a long time well before the movements started. She reports that she is having headaches. She reports that she has to wear sunglasses all the time because of light trigger her headaches. She feeels it in the vertex, occiput, or down the neck. She will have 12-16 headaches per month. Dull ache. Is the DURAN longer than four hours? Yes (Migraine) Photophobia? Yes (Migraine) Phonophobia? Yes (Migraine) Nausea/Vomiting? Yes (Migraine) Exacerbated by Movement? No Dizziness with the headaches. (Hemicrania Continua) Autonomic Features (at least 1 of below)? (1) conjunctival injection? No (2) lacrimation? No (3) nasal congestion? No (4) rhinorrhea? No (5) ptosis? No (6) eyelid edema? No (New Daily Persistent DURAN) Clear Onset of DURAN Syndrome? No Persistent for >3 months? No Distinct starting point? No No prior DURAN history? Yes (Tension-Type DURAN) Mild-Moderate, Featureless? No >10 attacks per month? 30 min-7days? Bilateral? Pressing/tightening? Is the DURAN less than four hours? No Autonomic Features? No Cluster Headache (1 or more)? No 15 min to 180 min? No Ipsilateral conjunctival injection? No Ipsilateral Lacrimation? No Ipsilateral nasal congestion? No Ipsilateral Rhinorrhea? No Ipsilateral forehead and facial sweating? No Ipsilateral Miosis? No Ipsilateral Ptosis? No eyelid edema? No Paroxysmal Hemicrania (1 or more ipsilateral)? No (1) 2 min-30 min? No (2) conjunctival injection? No (3) lacrimation? No (4) nasal congestion? No (5) rhinorrhea? No (6) eyelid edema? No Short-lasting Unilateral Neuralgiform DURAN with Conjunctival Injection and Tearing? (1) 1 sec-600 s? No (2) conjunctival injection? No (3) lacrimation? No (4) nasal congestion? No (5) rhinorrhea? No (6) eyelid edema? No Hypnic DURAN? Only during sleep and causing awakening? No > 10 days per month? No > 3 months? No Age over 50? No Primary Cough DURAN? > 2 attacks? No Precipitated by coughing or other Valsalva maneuver? No 1 sec-2 hours? No Secondary cause ruled out? No Primary Exercise DURAN? > 2 attacks? No Precipitated by strenuous exercise? No Secondary cause ruled out? No Secondary causes of DURAN? Systemic Symptoms (mets, GCA, infection)? Fever? Sweats/Chills? Weight Loss? Secondary Diseases? HIV? Cancer? Chronic Infection? Chronic Immunosuppression? Neurological Symtoms and Signs (mass/structural lesion, stroke, hydrocephalus) Confusion? Focal neurological signs/symptoms? Diplopia? Transient visual obscurations? Pulsatile tinnitus? Onset: (RCVS, stroke, SAH, CVST, dissection, pituitary apoplexy, intracranial hypertension) Thunderclap? Older Age (mass, GCA) New onset after age 50? Progressive after age 50? Positional (CSF leak, mass, CVST, Sinusitis) Orthostatic? Recumbent? Worsens with change in position? Prior history (mass, infection)? / (CVST, eclampsia, RCVS, pituitary lesion, stroke)? Precipitated by valsalva (mass, Chiari)? Cough? Sneeze? Bending? Straining? She reports that she has had to have Botox for migraines. She has been on imipramine, pregabalin, topiramate, duloxetine, sertraline, and Botox for migraines and had bad reaction to all of those medications Past Medical History: has a past medical history of Anxiety, Asthma, Bipolar 1 disorder ([facility]), Bipolar depression (CMS/HCC) ([facility]), Cerebral palsy ([facility]), Cervical spine degeneration, COPD (chronic obstructive pulmonary disease) ([facility]), Dysphasia, Gait abnormality, GERD (gastroesophageal reflux disease), Hypercholesteremia, Hyperreflexia, Hypoglycemia, Hypothyroidism, IBS (irritable bowel syndrome), Myalgia, Myositis, Rhinitis, and Urinary incontinence. She reports that she was diagnosed with a stroke in 2020 at [place]. I do not have those records. Past Surgical History: has a past surgical history that includes Leg Surgery; Carpal tunnel release (Left); Shoulder surgery; Nasal septum surgery; Appendectomy; and Cholecystectomy. Medications: Current Outpatient Medications: Acetaminophen (TYLENOL 8 HOUR PO), Take by mouth., Disp: , Rfl: albuterol (2.5 MG/3ML) 0.083% nebulizer solution, , Disp: , Rfl: ammonium lactate (Amlactin) 12 % cream, APPLY TO ELBOWS ONCE A DAY, Disp: , Rfl: aspirin 81 MG EC tablet, Take 1 tablet by mouth daily., Disp: , Rfl: BUDESONIDE IN, Inhale., Disp: , Rfl: Calcium Carbonate-Vitamin D 500-5 MG-MCG tablet, Take by mouth., Disp: , Rfl: carboxymethylcellulose (Artificial Tears) 1 % ophthalmic solution, 1 drop 3 times daily., Disp: , Rfl: cetirizine (ZyrTEC) 10 MG tablet, Take by mouth., Disp: , Rfl: clopidogrel (Plavix) 75 MG tablet, Take by mouth daily., Disp: , Rfl: Cyanocobalamin (B-12) 1000 MCG sublingual tablet, Place under the tongue., Disp: , Rfl: Diclofenac Sodium (Voltaren) 1 % gel, Apply topically 2 times daily., Disp: , Rfl: ferrous sulfate 325 (65 Fe) MG tablet, Take 325 mg by mouth daily (with breakfast)., Disp: , Rfl: fluticasone (Flonase) 50 MCG/ACT nasal spray, Administer 1 spray into each nostril daily. Shake gently. Before first use, prime pump. After use, clean tip and replace cap., Disp: , Rfl: FORMOTEROL FUMARATE IN, Inhale., Disp: , Rfl: gabapentin (Neurontin) 400 MG capsule, Take 400 mg by mouth 3 times daily., Disp: , Rfl: HYDROcodone-acetaminophen ([place]) 5-325 MG tablet, , Disp: , Rfl: hydrocortisone 2.5 % cream, Apply topically 2 times daily., Disp: , Rfl: hydrOXYzine HCl (Atarax) 25 MG tablet, Take by mouth., Disp: , Rfl: ibandronate (Boniva) 150 MG tablet, Take 150 mg by mouth every 30 (thirty) days. Take in morning with full glass of water on an empty stomach. No food, drink, meds, or lying down for 60 minutes after., Disp: , Rfl: lactase (Lactaid) 3000 units tablet, Take 3,000 Units by mouth in the morning and 3,000 Units at noon and 3,000 Units in the evening. Take with meals., Disp: , Rfl: lamoTRIgine (LAMICTAL PO), Take 300 mg by mouth daily., Disp: , Rfl: lamoTRIgine (LaMICtal) 200 MG tablet, Take 200 mg by mouth 2 times daily., Disp: , Rfl: levothyroxine (Synthroid, Levoxyl) 75 MCG tablet, Take by mouth every morning (before breakfast)., Disp: , Rfl: losartan (Cozaar) 25 MG tablet, Take by mouth., Disp: , Rfl: magnesium oxide (Mag-Ox) 400 mg tablet, 400 mg daily., Disp: , Rfl: meclizine (Antivert) 12.5 MG tablet, Take 12.5 mg by mouth 3 times daily as needed for dizziness., Disp: , Rfl: Multiple Vitamin (multivitamin) capsule, Take 1 capsule by mouth daily., Disp: , Rfl: nystatin (Mycostatin) 961982 UNIT/GM powder, Apply topically 2 times daily., Disp: , Rfl: polycarbophil (Fiber-Lax) 625 MG tablet, Take by mouth daily., Disp: , Rfl: polyethylene glycol, PEG, 3350 (Miralax) 17 g packet, Take by mouth., Disp: , Rfl: prednisoLONE sodium phosphate (Inflamase Forte) 1 % ophthalmic solution, 1 drop in the morning and 1 drop at noon and 1 drop in the evening and 1 drop before bedtime., Disp: , Rfl: promethazine (Phenergan) 25 MG tablet, Take by mouth., Disp: , Rfl: RABEprazole (Aciphex) 20 MG EC tablet, Take by mouth. Do not crush, chew, or split., Disp: , Rfl: rosuvastatin (Crestor) 5 MG tablet, Take 5 mg by mouth daily., Disp: , Rfl: sucralfate (Carafate) 1 g tablet, Take by mouth 4 times daily (before meals and nightly)., Disp: , Rfl: tiZANidine (Zanaflex) 4 MG capsule, Take 4 mg by mouth 3 times daily., Disp: , Rfl: tiZANidine (Zanaflex) 6 MG capsule, Take by mouth 3 times daily., Disp: , Rfl: triamcinolone (Kenalog) 0.1 % cream, Apply topically 2 times daily., Disp: , Rfl: VITAMIN D PO, Take by mouth., Disp: , Rfl: Allergies: Baclofen; Ciclesonide; Erythromycin; Fentanyl; Imipramine; Lubiprostone; Ondansetron; Oxycodone; Oxymorphone; Pregabalin; Topiramate; Aspartame; Iron; Levofloxacin; Onabotulinumtoxina; Penicillins; Antihistamines, chlorpheniramine-type; Ascorbic acid; Botulinum toxin type a; Bupropion; Bu spirone; Capsaicin; Carbamazepine; Cat hair extract; Celecoxib; Dog epithelium (canis lupus familiaris); Duloxetine; Dust mite extract; Erythromycin base; Fish oil; Fluvoxamine; Gabapentin; Horse protein; Ibuprofen; Iron polysaccharide; Lurasidone; Nsaids; Propantheline; Pseudoephedrine; Saccharin;Sulfamethoxazole- trimethoprim; Tetracycline; Trimethoprim; Venlafaxine; Venlafaxine hcl; Wound dressing adhesive; Ziprasidone; Cefaclor; Cephalexin; Ciprofloxacin; Codeine; Daucus carota; Diphenhydramine; Dog epithelium; Doxepin; Hydromorphone; Candor; Molds & smuts; Onabotulinumtoxina (cosmetic); Pollen extract; Sertraline; and Sulfa antibiotics Social History: Social History Socioeconomic History Marital status: Single Spouse name: Not on file Number of children: Not on file Years of education: Not on file Highest education level: Not on file Occupational History Not on file Tobacco Use Smoking status: Never Smokeless tobacco: Never Substance and Sexual Activity Alcohol use: Yes Drug use: Not on file Sexual activity: Not on file Other Topics Concern Not on file Social History Narrative Not on file Social Determinants of Health Financial Resource Strain: Not on file Food Insecurity: Not on file Transportation Needs: Not on file Physical Activity: Not on file Stress: Not on file Social Connections: Not on file Intimate Partner Violence: Not on file Housing Stability: Not on file Family History: Family History Problem Relation Name Age of Onset Alcohol abuse Mother Heart disease Sister Bipolar disorder Mother Stroke Sister Cancer Brother Emphysema Father REVIEW OF SYSTEMS: Review of Systems Constitutional: Negative for appetite change, chills, diaphoresis, fever and unexpected weight change. HENT: Negative for dental problem and mouth sores. Eyes: Negative for discharge and itching. Respiratory: Negative for chest tightness. Cardiovascular: Negative for chest pain and leg swelling. Gastrointestinal: Negative for rectal pain and vomiting. Endocrine: Negative for polydipsia, polyphagia and polyuria. Genitourinary: Negative for decreased urine volume, flank pain and genital sores. Musculoskeletal: Negative for arthralgias. Skin: Negative for color change. Allergic/Immunologic: Negative for food allergies and immunocompromised state. Neurological: Abnormal movements Gait disorder Hematological: Negative for adenopathy. Does not bruise/bleed easily. Psychiatric/Behavioral: Negative for agitation, behavioral problems, decreased concentration, sleepdisturbance and suicidal ideas. PHYSICAL EXAM: Vitals: BP (!) 199/85 (BP Location: Right arm, Patient Position: Sitting, BP Cuff Size: Adult) Comment (BP Location): lower arm Pulse 84 Ht 5' 4" (1.626 m) Wt 182 lb (82.6 kg) BMI 31.24 kg/m General Appearance: Patient is in no apparent distress. Head is normocephalic, atraumatic Cardiovascular: Regular rate and rhythm. No heart murmurs. No carotid bruit Neurologic: Mentation: Alert and oriented x 3 to person, place and time. Speech and Language: Speech and language normal Concentration and Attention: Concentration normal Memory: Memory normal Fund of Knowledge: Fund of knowledge normal Cranial Nerves: II, III, IV, V, , VII, VIII, IX, X, XI, XII tested and were examined including fundoscopic exam (optic discs) and visual field to confrontation. She forcibly closes her eyes when I tried to perform eye movements, but once I forced them open then she did cooperate. She does have jason e reduction in upward gaze. Motor: Strength:Strength exam is difficult due to pain in her shoulders and braces on her ankles. She appears to have equal and symmetric strength. Alternating Movements: Normal Cogwheel Rigidity: None Tone: Tone is normal Tremor / Involuntary Movements: There is a combination of choreiform movements of the right arm/torso, some dyskinesias, and a great deal of functional movements as well. Deep Tendon Reflexes: 1 out of 4 symmetrical in all four limbs. Sensory: Normal sensation upper and lower extremities Coordination: Normal coordination upper and lower extremities Gait and Station: Station is normal. Gait is abnormal. She is able to get started and turn without smacking her feet but will smack her feet if I do not distract her. She is unstable but is doing fine with the walker. DATA CBC: No results found for: "WBC", "RBC", "HGB", "HCT", "MCV", "MCH", "MCHC", "RDW", "PLT", "MPV" CMP: No results found for: "NA", "K", "CL", "CO2", "BUN", "CREATININE", "AGRATIO", "LABGLOM", "GLUCOSE", "GLU", "PROT", "CALCIUM", "BILITOT", "ALKPHOS", "AST", "ALT" BMP: No results found for: "NA", "K", "CL", "CO2", "BUN", "CREATININE", "CALCIUM", "LABGLOM", "GLUCOSE", "GLU" PT/INR: No results found for: "PROTIME", "INR" PTT: No results found for: "APTT", "PTT"[APTT} FLP: No results found for: "CHLPL", "TRIG", "HDL", "LDLCALC", "LDLDIRECT" TSH: No results found for: "TSH" VITAMIN B12: No results found for: "CPRYAWRZ71" FERRITIN: No results found for: "FERRITIN" ---- No results found for: "PHENYTOIN", "PHENOBARB", "VALPROATE", "CBMZ" No components found for: "TOPIRA"No results found for: "OXCARBAZE", "OXCARB" @LASTAPPOINTMENTTHISPROV@ No image results found. @RESULTINGLABINFO@ No results found for: "LEVETIRACETA", "FERRITIN", "CRP", "JANA", "ANCA" No results found for: "MAGALI", "IMMUNOGLOBUL", "OLIGOBANDS" No results found for: "AEP65CS", "HEPCAB" No results found for: "CRP", "ANATITER", "ANCA" ASSESSMENT AND PLAN: Diagnosis Plan 1. Chorea 2. Tardive dyskinesia 3. Functional movement disorder 4. Migraine with aura and without status migrainosus, not intractable It is medically necessary for her to have an MRI of the brain for stroke or tumor causing the issues with many of the movements mary her ballism on the right. Will try Aust[place] to help with the dyskinesias. It is very important that she follow up with Dr. Judd as there are a great deal of functional movement activities, such as the slapping of the chest, the clapping and the hip thrusts, and the eye closures. The patient down plays this but the exam and history indicate that she is having many migraines andthat she has become accustomed to behaviors learned to avoid the headaches. The eye closure is primarily volitional for example. She has been on imipramine, pregabalin, topiramate, duloxetine, sertraline, and Botox for migraines and had bad reaction to all of those medications. With her movements it is impossible for her to give herself injections, so it is medically necessary for her to get Qulipta daily. I spent 60 minutes caring for this patient today, reviewing labs and records, seeing the patient, documenting in the record and arranging for studies. documented in this [facility]SProv[facility] [id number] Telephone encounter Note* Telephone Encounter - Linda Jordan MA - 06/22/2024 9:35 AM EDT Noted patient confirmed [id number] Miscellaneous Notes* Telephone Encounter - Linda Jordan MA - 06/22/2024 9:35 AM EDT Noted patient confirmed appointment * Telephone Encounter - Sally Brantley - 06/22/2024 9:31 AM EDT Name of caller: Steve Contact phone number: [phone] Relationship to Patient: patient Provider: Dr. Napier Practice: [facility] Chief Complaint/Reason for Call: Pt states she wants to let the office know that she is unable to confirm her appointments online as she does not have internet and can only confirm via phone or text.Pt states she is confirming her appointment for 06/29. Please review. Best time of day caller can be reached: any Patient advised that office/PCP has 24-48 business hours to return their call: No documented in this [facility]08-22-2024 Telephone encounter Note* Telephone Encounter - Sally Brantley - 06/22/2024 9:31 AM EDT Name of caller: Steve Contact phone number: [phone] Relationship to Patient: patient Provider: Dr. Napier Practice: [facility] Chief Complaint/Reason for Call: Pt states she wants to let the office know that she is unable to confirm her appointments online as she does not have internet and can only confirm via phone or text.Pt states she is confirming her appointment for 06/29. Please review. Best time of day caller can be reached: any Patient advised that office/PCP has 24-48 business hours to return their call: No [id number] Discharge instructions Patient Education 09/20/2023 10:19:08 Peripheral Nerve Block Peripheral Nerve Block Peripheral nerve block is an injection of numbing medicine (regional anesthetic) near a nerve. The regional anesthetic numbs everything below the injection site. This provides pain relief during and after a medical procedure. Generally, you will be awake while a peripheral nerve block is performed. You also may receive medicines to help you feel relaxed and comfortable during the procedure (sedatives). When you have a peripheral nerve block, you are not exposed to the risks associated with medicine that makes you fall asleep (general anesthetic). You may also: Need less pain medicine after your procedure. Have a lower risk of blood clots. Recover sooner. Tell a health care provider about: Any allergies you have. All medicines you are taking, including vitamins, herbs, eye drops, creams, and xazu-ubp-krhciiq medicines. Any problems you or family members have had with anesthetic medicines. Any blood disorders you have. Any surgeries you have. Any medical conditions you have. Whether you are or may be . What are the risks? Generally, this is a safe procedure. However, problems may occur, including: Infection. Bleeding. Allergic reactions to medicines. Damage to other structures or organs, such as temporary or permanent nerve damage. What happens during the procedure? The skin around your injection site will be cleaned with a germ-killing solution. Medicine to numb your injection site (local anesthetic) may be injected into the tissue above your nerve. Regional anesthetic will be injected into the area near your nerve. ?The medicine will be injected around the nerve, not into it. ?You should not feel any pain. The area of your peripheral nerve block will begin to feel warm and numb. A thin, flexible tube (catheter) may be inserted near your nerve. The catheter may remain there to continue delivering the regional anesthetic during and after your medical procedure. When the area of your peripheral nerve block is completely numb, the medical procedure can be performed. Your injection site may be covered with a bandage (dressing) when your medical procedure is done. The procedure may vary among health care providers and hospitals. What can I expect after the procedure? If you do not have a catheter, you may continue to be numb for up to 36 hours. The length of this time depends on how much anesthetic was injected. If you have a catheter, you will continue to be numb until the catheter is removed. To reduce your risk of injury: ?Do not expose the numb area to heat or cold. As the medicine wears off, you will have a gradual return of feeling in the area that is supplied by the nerve. Your blood pressure, heart rate, breathing rate, and blood oxygen level will be monitored until themedicines you were given have worn off. Follow these instructions at home: Activity Do not drive or use heavy machinery until your health care provider approves. Do not lift anything that is heavier than 10 lb (4.5 kg), or the limit that you are told, until your health care provider says that it is safe. Injection site care If you have a dressing, remove it 24 hours after your procedure, or as told by your health care provider. Check your injection site every day for signs of infection. Check for: ?Redness, swelling, or pain. ?Warmth. ?Fluid or blood. ?Pus or a bad smell. General instructions Take nyqi-apb-sxvfgqq and prescription medicines only as told by your health care provider. Do not take showers or baths, swim, or use a hot tub until your health care provider approves. Keep all follow-up visits as told by your health care provider. This is important. Contact a health care provider if: You continue to have numbness, weakness, or tingling after your medicine has worn off. You have a fever. You have redness, swelling, or pain around your injection site. Get help right away if: You have trouble breathing. Summary Peripheral nerve block is an injection of numbing medicine (regional anesthetic) near a nerve. Thisprovides pain relief during and after a medical procedure. Feeling will gradually return to the area that is supplied by the nerve. A catheter may be inserted to continue to provide medicine for up to several days. This information is not intended to replace advice given to you by your health care provider. Make sure you discuss any questions you have with your health care provider. Document Released: 01/24/2009 Document Revised: 12/04/2019 Document Reviewed: 08/10/2018 [employer] Patient Education 2020 [employer]. Follow Up Care 09/16/2023 13:13:17 With:HEIDI NG MD Address: [address] [place] [address] [place] [address]- [phone] When: only if needed [facility] 11-20-2023 Note ORIGINAL Images acquired, not reported on this accession number.[facility]11-20-2023 Note Discharge Instructions Thank you for allowing [facility] to assist you with your healthcare needs. The following is importantdischarge information regarding your hospital visit. Your Care Team MARCIO SELF MD Your Diagnosis Left rotator cuff tear What to do next Scheduled Follow-Up Appointments Appointment Type When With Where Contact InformationPT Treatment - [place] 09/21/2023 10:30 AM [facility] Physical Therapy [phone] PT Treatment - [place] 09/27/2023 09:00 AM [facility] Physical Therapy [phone] PC OV 12/16/2023 11:00 AM MARCIO CABRERA MD [facility] Follow Up Appointments Follow Up with HEIDI NG MD When Only if needed Where: [address] [place] [address] [place] [address] [phone] Allergies Alvesco (difficulty breathing) Amitiza (Vomiting) Animal Dander (unknown) Aspartame (Itching) Benadryl Benedryl Allergy Sinus (break out) Botox (tongue feels itchy) Carrots (Itching) Dust (unknown) Geodon (Movement) Iron ("deathly ill") Levaquin (itching) Lyrica (unable to open eyes) Mold (unknown) Topamax (hallucinations) Zoloft baclofen (Vomiting) codeine (unknown) erythromycin (chest pain) fentaNYL (Vomiting) imipramine (Visual hallucinations, Urticaria) lithium oxyCODONE (Vomiting) oxyMORphone (Vomiting, Abdominal pain) penicillin (rash) propantheline (Unknown) seasonal enviromental sertraline (Vomiting, Vomiting, Upset stomach, Dizziness) sulfa drug (nauseated) Medications Please ask your primary doctor or pharmacist before taking any other medication not listed, including over the counter drugs, herbal medications, vitamins and or supplements as they may interact withyour home medications. What How Much When Why Instructions Last Dose Unchanged acetaminophen (Acetaminophen Extra StrengthGelcaps 500 mg) 2 tab(s) by mouth Every 6 hours as needed for as needed for pain Unchanged acetaminophen-hydrocodone ([place] 325- 5 mg oral tablet) 1 tab(s) by mouth Three (3) times a day as needed for for pain Low back pain Compression fracture of spine Duration: 30 Days Unchanged albuterol (ProAir HFA MDI (90 mcg/ inh) inhalation aerosol) 2 puff(s) by inhalation Four (4) times a day as needed for as needed for wheezing Duration: 30 Days Unchanged albuterol-ipratropium (albuterol-ipratropium 2.5 mg-0.5 mg/ 3 mL inhalation solution) Nebulized inhalation Four (4) times a day Unchanged aluminum hydroxide-magnesium hydroxide (aluminum hydroxide-magnesium hydroxide 200 mg-200mg/ 5 mL oral suspension) by mouth Four (4) times a day Unchanged amLODIPine (amLODIPine 2.5 mg oral tablet) 1 tab(s) by mouth Once a day Unchanged ammonium lactate topical (ammonium lactate 12% topical cream) See instructions Topical BID Unchanged ammonium lactate topical (ammonium lactate 12% topical cream) Unchanged aspirin (Aspirin Enteric Coated 81 mg oral delayed release tablet) See instructions TAKE ONE TABLET BY MOUTH EVERY DAY Unchanged budesonide (Pulmicort Respules 0.5 mg/ 2 mL inhalation suspension) 2 Milliliter by inhalation Once a day Unchanged calcium-vitamin D (Os-Satnam Calcium+D3 500 mg-5 mcg (200 intl units) oral tablet) 1 tab(s) by mouth Two (2) times a day Unchanged cefdinir (cefdinir 300 mg oral capsule) 1 cap by mouth Every 12 hours Sinusitis Bilateral otitis media Duration: 10 Days Unchanged cetirizine (Zyrtec 10 mg oral tablet) 1 tab(s) by mouth Once a day Unchanged clopidogrel (clopidogrel 75 mg oral tablet) 1 tab(s) by mouth Once a day Unchanged cyanocobalamin (cyanocobalamin 1000 mcg/ mL injectable solution) See instructions 1 mL Intramuscular 30 day(s) Once a month Unchanged cyclobenzaprine (cyclobenzaprine 10 mg oral tablet) 1 tab(s) by mouth Three (3) times a day as needed for for muscle spasm Unchanged diclofenac topical (diclofenac 1% topical gel) 8 gram(s) Topical Four (4) times a day Knee pain, bilateral Bilateral shoulder pain Lumbar degenerative disc disease Duration: 30 Days not to exceed 32 grams/ day Unchanged ferrous sulfate (ferrous sulfate 325 mg (65 mg elemental iron) oral delayed release tablet) 1 tab(s) by mouth Once a day Unchanged fluticasone nasal (fluticasone proprionate NASAL 50 mcg/ spray) 2 spray(s) in the nose Once a day Duration: 90 Days Unchanged formoterol (formoterol 20 mcg/ 2 mL inhalation solution) 2 Milliliter by inhalation Two (2) times a day Osteoporosis Back pain LINCARE Unchanged gabapentin (gabapentin 600 mg oral tablet) 1 tab(s) by mouth Three (3) times a day Thoracic compression fracture Duration: 30 Days Unchanged hydrocortisone topical (hydrocortisone 2.5% topical cream) See instructions Topical BID PRN Unchanged hydrOXYzine (hydrOXYzine pamoate 25 mg oral capsule) 1 cap by mouth Every 12 hours Unchanged ibandronate (Boniva 150 mg oral tablet) 1 tab(s) by mouth Once a month Osteoporosis Back pain Unchanged lactase Unchanged lamoTRIgine (lamoTRIgine 200 mg oral tablet) 1 tab(s) by mouth Two (2) times a day Unchanged lamoTRIgine (lamoTRIgine 300 mg oral tablet, extended release) 1 tab(s) by mouth Daily at bedtime Unchanged levothyroxine (Synthroid 75 mcg (0.075 mg) oral tablet) 1 tab(s) by mouth Once a day Unchanged lidocaine topical (lidocaine 4% patch) Topical Once a day Unchanged losartan (losartan 25 mg oral tablet) 1 tab(s) by mouth Two (2) times a day Duration: 90 Days Unchanged lurasidone (Latuda 20 mg oral tablet) 1 tab(s) by mouth Daily at bedtime Unchanged meclizine (meclizine 25 mg oral tablet) 0.5 tab(s) by mouth Four (4) times a day Unchanged multivitamin (Daily Chalino oral tablet) 1 tab(s) by mouth Once a day Unchanged multivitamin (Multivitamin) 1 tab(s) by mouth Every day Therems-M Unchanged nystatin topical (nystatin 100,000 units/ g topical powder) Topical Three (3) times a day Unchanged ocular lubricant (Artificial Tears ophthalmic solution) 1 Drops Both eyes Two (2) times a day as needed for as needed for dry eyes Unchanged polycarbophil (Fiberlax 625 mg oral tablet) 1 tab(s) by mouth Four (4) times a day Unchanged polyethylene glycol 3350 (MiraLax oral powder for reconstitution) 17 gram(s) by mouth Two (2) times a day Unchanged promethazine (promethazine 25 mg oral tablet) 1 tab(s) by mouth Every 6 hours as needed for for nausea/vomiting Unchanged promethazine (promethazine 25 mg oral tablet) 1 tab(s) by mouth Every 6 hours as needed for for nausea/vomiting Duration: 30 Days Unchanged RABEprazole (RABEprazole 20 mg oral delayed release enteric coated tablet) 3 tab(s) by mouth Two (2) times a day Unchanged rosuvastatin (rosuvastatin 5 mg oral tablet) 1 tab(s) by mouth Once a day Cerebral palsy Vertigo Unchanged tiZANidine (tiZANidine 4 mg oral tablet) 1.5 tab(s) by mouth Daily at bedtime Duration: 30 Days Unchanged triamcinolone topical (triamcinolone 0.1% topical paste) by mouth Please take this list to your next doctor s visit. Bring all medications you take, including over the counter medications, herbals and other supplements with you to your doctor s visit. Patients and families are reminded to discard old lists and to update any records with all medication providers or retail pharmacies. Education Materials Peripheral Nerve Block Peripheral nerve block is an injection of numbing medicine (regional anesthetic) near a nerve. The regional anesthetic numbs everything below the injection site. This provides pain relief during and after a medical procedure. Generally, you will be awake while a peripheral nerve block is performed. You also may receive medicines to help you feel relaxed and comfortable during the procedure (sedatives). When you have a peripheral nerve block, you are not exposed to the risks associated with medicine that makes you fall asleep (general anesthetic). You may also: Need less pain medicine after your procedure. Have a lower risk of blood clots. Recover sooner. Tell a health care provider about: Any allergies you have. All medicines you are taking, including vitamins, herbs, eye drops, creams, and avdh-bxy-ccfgwov medicines. Any problems you or family members have had with anesthetic medicines. Any blood disorders you have. Any surgeries you have. Any medical conditions you have. Whether you are or may be . What are the risks? Generally, this is a safe procedure. However, problems may occur, including: Infection. Bleeding. Allergic reactions to medicines. Damage to other structures or organs, such as temporary or permanent nerve damage. What happens during the procedure? The skin around your injection site will be cleaned with a germ-killing solution. Medicine to numb your injection site (local anesthetic) may be injected into the tissue above your nerve. Regional anesthetic will be injected into the area near your nerve. ? The medicine will be injected around the nerve, not into it. ? You should not feel any pain. The area of your peripheral nerve block will begin to feel warm and numb. A thin, flexible tube (catheter) may be inserted near your nerve. The catheter may remain there to continue delivering the regional anesthetic during and after your medical procedure. When the area of your peripheral nerve block is completely numb, the medical procedure can be performed. Your injection site may be covered with a bandage (dressing) when your medical procedure is done. The procedure may vary among health care providers and hospitals. What can I expect after the procedure? If you do not have a catheter, you may continue to be numb for up to 36 hours. The length of this time depends on how much anesthetic was injected. If you have a catheter, you will continue to be numb until the catheter is removed. To reduce your risk of injury: ? Do not expose the numb area to heat or cold. As the medicine wears off, you will have a gradual return of feeling in the area that is supplied by the nerve. Your blood pressure, heart rate, breathing rate, and blood oxygen level will be monitored until themedicines you were given have worn off. Follow these instructions at home: Activity Do not drive or use heavy machinery until your health care provider approves. Do not lift anything that is heavier than 10 lb (4.5 kg), or the limit that you are told, until your health care provider says that it is safe. Injection site care If you have a dressing, remove it 24 hours after your procedure, or as told by your health care provider. Check your injection site every day for signs of infection. Check for: ? Redness, swelling, or pain. ? Warmth. ? Fluid or blood. ? Pus or a bad smell. General instructions Take govs-ume-voskrwa and prescription medicines only as told by your health care provider. Do not take showers or baths, swim, or use a hot tub until your health care provider approves. Keep all follow-up visits as told by your health care provider. This is important. Contact a health care provider if: You continue to have numbness, weakness, or tingling after your medicine has worn off. You have a fever. You have redness, swelling, or pain around your injection site. Get help right away if: You have trouble breathing. Summary Peripheral nerve block is an injection of numbing medicine (regional anesthetic) near a nerve. Thisprovides pain relief during and after a medical procedure. Feeling will gradually return to the area that is supplied by the nerve. A catheter may be inserted to continue to provide medicine for up to several days. This information is not intended to replace advice given to you by your health care provider. Make sure you discuss any questions you have with your health care provider. Document Released: 01/24/2009 Document Revised: 12/04/2019 Document Reviewed: 08/10/2018 Elsevier Patient Education 2020 [employer] Additional Information VACCINATE! IT SAVES LIVES! Members of the community who have not yet received the COVID-19 vaccine and would like to receive it can visit one of [facility] vaccine clinics. There are many vaccine clinic locations within the [facility]. For locations and available times, please visit https://gettheshot.coronavirus.[place].gov/. It is important to note that some COVID mobile vaccine clinics are held outdoors and may be canceled in rainy or stormy conditions. To learn more about pediatric vaccinations (ages 5-11), we invite you to visit the [facility] webpage. [email or web address].[email or web address].org/pages/4368-Sbvsr-Iiakvjrhhlf-Ulfulfbqjj-Gobsv-Loy stions.htmlTo learn more about the COVID-19 vaccine, we invite you to visit the CDC website for a list of frequently asked questions.https://www.cdc.gov/coronavirus/2019-ncov/vaccines/faq.html [facility] Patient Portal Access Instructions: Stay connected with your healthcare team and access your personal medical information anytime with the [facility] Patient Portal. Please follow the directions below to create your [facility] account: 1.Access the email account you provided upon registration to the hospital/physician office.2.Look for an invitation email from [facility].3.Open the email and access the invitation link: AcceptInvitation to [facility].4.Fill in the required martinez to create your account. To access your account, visit [email or web address]. Click the blue button labeled "Access Patient Portal" and then log in with the username and password that you created in the steps above. You will be able to view your test results, lab results, a summary of your visits, upcoming appointments and more. There is also a convenient messaging option where you can send secure messages to your p rovider. In addition, you will have the ability to download any documents or summaries to your computer and/or send the information securely to a physician. Remember that your healthcare information is confidential, so carefully consider who you will allowto register on the [facility] Patient Portal for access to your information. You can also access the [facility] Patient Portal on the [facility] cullen. Simply click on "Patient Portal" and then log into your account. If you would like to receive a full copy of your medical records, please contact the [facility] Medical Records Department by calling [phone], Wednesday through Wednesday between 8 a.m. and 4:30 p.m. HOW TO SAFELY DISPOSE OF PRESCRIPTION MEDICATIONS Please use one of the following methods to safely dispose of your unused medications. 1.Use a drug disposal kit: the drug disposal pouch allows you to safely discard your old and unuseddrugs. Ask your nurse to give you one when you are discharged.2.Visit a local take-back location: Many local pharmacies and police departments have programs that collect old and unwanted prescriptiondrugs. Call your local pharmacy or go to http://HALFPOPS.FedTax/[email or web address] to find one close to you.3.Make use of household items: Use cat litter or old coffee grounds to dispose medications if other options arenot available. Mix your drugs with these household products, seal them in an airtight container andthrow it into the garbage. Call [facility]: [phone] to be sure your drugs can be disposed of in this way. Some medicines may require a different approach.4.Never flush your medications down the toilet. IF YOU HAVE BEEN PRESCRIBED AN OPIOID FOR PAIN If you have been prescribed an opioid (such as hydrocodone, oxycodone or morphine), it is critical to understand the possible side effects and risks of opioid pain medications. Even when taken as directed, opioids can have several side effects including: Tolerance, meaning you might need to take more of a medication for the same pain relief. Nausea, vomiting and/or constipation. Sleepiness, dizziness, dry mouth, confusion, depression or itching. Physical dependence, meaning you have withdrawal symptoms when a medication is stopped, can develop within a few days. KNOW YOUR RESPONSIBILITIES It is important to know exactly how much and how often to take the opioid pain medications you are prescribed. Never take opioids in higher amounts or more often than prescribed. Do not combine opioids with alcohol or other drugs that cause drowsiness, such as benzodiazepines, also known as benzos, including diazepam and alprazolam, muscle relaxants or sleep aids. Never sell or share prescription opioids. This is illegal. Store opioids in a secure place and out of reach of others (including children, family, friends and visitors). The last page of this document has been signed and retained as a CHART COPY. Signatures Patient Education Materials Peripheral Nerve Block Medication Leaflets My discharge plan and instructions have been reviewed and explained to me and IGRACIA PATRICIA R understand my current condition and have read and understand these discharge instructions. I have received a written copy of the plan/instructions. If I have questions, I am aware that I should contact my doctor. 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 Fagan is a 67 year old woman presenting to the neurology clinic today for initial evaluation ?TIAs. * April 23 and an CORE MICROARCHITECT told her that she was having TIAs in her legs. * She is having episodes of face drooping. She has had 4 episodes - 2 times she lost consciousness. * First one - she could hear people however she was not responding. She was standing and put her in the wheelchair then she was on the floor. She does not remember getting in the wheelchair or being onthe floor. Once she was in the floor she came to. * March 24 after she had her right knee replacement. She sitting in the recliner and she passed out - she woke up 20 minutes later and her vision was off. She did a CT head which showed a stroke. * December 22 - speech was slurred and she was having trouble speaking. went to bed and symptoms had resolved. * April 15 - she passed out and her right leg felt funny. She had left facial drooping. * She is on aspirin and Plavix. SHe has had episode since starting those medications. * The most recent episode was in June. EF-Qcfuhiryh-Merzomeuu DO Work Phone: [phone]) 685-388206-23-2022 History of Present illness Narrative* Ms. Fagan is a 67 year old woman presenting to the neurology clinic today for initial evaluation ?TIAs. * April 23 and an CORE MICROARCHITECT told her that she was having TIAs in her legs. * She is having episodes of face drooping. She has had 4 episodes - 2 times she lost consciousness. * First one - she could hear people however she was not responding. She was standing and put her in the wheelchair then she was on the floor. She does not remember getting in the wheelchair or being onthe floor. Once she was in the floor she came to. * March 24 after she had her right knee replacement. She sitting in the recliner and she passed out - she woke up 20 minutes later and her vision was off. * December 22 - speech was slurred and she was having trouble speaking. went to bed and symptoms had resolved. * April 15 - she passed out and her right leg felt funny. She had left facial drooping. * She is on aspirin and Plavix. SHe has had episode since starting those medications. * The most recent episode was in June. She has had adjustment of her psych Meds since that time. XS-Yepnbjfxd-Hricdlumr DO Work Phone: [phone] 438-193706-15-2022 Hospital Discharge instructions Patient Education 04/15/2022 18:17:04 Hypokalemia Hypokalemia Hypokalemia means a low level of potassium in the blood. This most often occurs in people who take water pills (diuretics). It can also occur because of severe vomiting or diarrhea. You may also haveit if you take laxatives for long periods of time. It sometimes happens if you have low magnesium (hypomagnesemia). If you have this, your healthcare provider will treat the low magnesium first. A mild case of hypokalemia usually causes no symptoms. It is only found with blood testing. More severe potassium loss causes overall weakness, muscle or abdominal cramps, rapid or irregular heartbeats (heart palpitations), low blood pressure, and muscle weakness. Home care Take any potassium supplements as prescribed. Eat foods rich in potassium. The highest amount is found in avocado, baked potatoes, spinach, cantaloupe, cod, halibut, salmon, and scallops. White, red, or beaver beans are also very good sources. A modest amount of potassium is found in orange juice, bananas, carrots, and tomato juice. If you take certain types of diuretics, you will also need to take potassium supplements. If you take a diuretic, discuss potassium supplements with your doctor. Follow-up care Follow up with your healthcare provider for a repeat blood test within the next week, or as advisedby our staff. When to seek medical advice Call your healthcare provider right away if any of the following occur: Increased weakness, fatigue, or muscle cramps Dizziness Call 911 Call 911 if any of the following occur: Irregular heartbeat, extra beats, or very fast heart rate Loss of consciousness [id number] [employer] [place] [address]. All rights reserved. This information is not intended as a substitute for professional medical care. Always follow yourhealthcare professional's instructions. Follow Up Care 04/15/2022 16:01:51 With:MARCIO SELF MD Address: [address] [facility] ([place], [place]) [address] [facility] [place] [address]- When:2-4 days [facility] 03-17-2022 Hospital Discharge instructions Patient Education 01/15/2022 12:10:55 Hematoma Hematoma A hematoma is a collection of blood trapped outside of a blood vessel. It is what we think of as a bruise or a contusion. It is usually seen under the skin as a black and blue spot on your arm or leg, or a bump on your head after an injury. It can be almost anywhere on or in your body. It can also occur in an internal organ where it can be more serious. A hematoma is caused by an injury with damage to small blood vessels. This causes blood to leak into the tissues. Blood forms a pocket under the skin that swells and looks like a purplish patch. Hematomas sometimes form under the skin from bleeding during childbirth and can be particularly serious.Another serious form of hematoma forms after a fall on the head, called a subdural hematoma. Gradually the blood in the hematoma is absorbed back into the body. The swelling and pain of the hematoma will go away. This takes from 1 to 4 weeks, depending on the size of the hematoma. The skin over the hematoma may turn bluish then brown and yellow as the blood is dissolved and absorbed. Usually, this only takes a couple of weeks but can last months. Home care Limit motion of the joints near the hematoma. If the hematoma is large and painful, avoid sports and other vigorous physical activity until the swelling and pain goes away. Apply an ice pack (ice cubes in a plastic bag, or a frozen bag of peas, wrapped in a thin towel) over the injured area for 20 minutes every 1 to 2 hours the first day. Continue with ice packs 3 to 4 times a day for the next 2 days. Continue the use of ice packs for relief of pain and swelling as needed. If you need anything for pain, you can take acetaminophen, unless you were given a different pain medicine to use. Talk with your healthcare provider before using this medicine if you have chronic liver or kidney disease. Also talk with your healthcare provider if you have had a stomach ulcer or digestive tract bleeding, or are taking blood-thinner medicines. Follow-up care Follow up with your healthcare provider, or as advised. If X-rays or a CT scan were done, you will be notified if there is a change in the reading, especially if it affects treatment. When to seek medical advice Call your healthcare provider right away if any of the following occur: Redness around the hematoma Increase in pain or warmth in the hematoma Increase in size of the hematoma Fever of 100.4 F (38 C) or higher, or as directed by your healthcare provider If the hematoma is on the arm or leg, watch for: oIncreased swelling or pain in the extremity oNumbness or tingling or blue color of the hand or foot [id number] [employer]. [address] [place] [address]. All rights reserved. This information is not intended as a substitute for professional medical care. Always follow yourhealthcare professional's instructions. 01/15/2022 12:10:52 Facial Contusion Facial Contusion A contusion is another word for a bruise. It happens when small blood vessels break open and leak blood into the nearby area. A facial contusion can result from a bump, hit, or fall. This may happen during sports or an accident. Symptoms of a contusion often include changes in skin color (bruising), swelling, and pain. The swelling from the contusion should decrease in a few days. Bruising and pain may take several weeks to go away. Home care If you have been prescribed medicines for pain, take them as directed. To help reduce swelling and pain, wrap a cold pack or bag of frozen peas in a thin towel. Put it onthe injured area for up to 20 minutes. Do this a few times a day until the swelling goes down. If you have scrapes or cuts on your face requiring stiches or other closures, care for them as directed. For the next 24 hours (or longer if instructed): oDon t drink alcohol, or use sedatives or medicines that make you sleepy. oDon t drive or operate machinery. oDon't do anything strenuous. Don t lift or strain. oDon't return to sports or other activity that could result in another head injury. Note about concussions Because the injury was to your head, it is possible that a concussion (mild brain injury) could result. Symptoms of a concussion can show up later. Be alert for signs and symptoms of a concussion. Seek emergency medical care if any of these develop over the next hours to days: Headache Nausea or vomiting Dizziness Sensitivity to light or noise Unusual sleepiness or grogginess Trouble falling asleep Personality changes Vision changes Memory loss Confusion Trouble walking or clumsiness Loss of consciousness (even for a short time) Inability to be awakened Feeling "off" or slow as if in a daze Follow-up care Follow up with your healthcare provider, or as directed. When to seek medical advice Call your healthcare provider right away if any of these occur: Swelling or pain that gets worse, not better New swelling or pain Warmth or drainage from the swollen area or from cuts or scrapes Fluid drainage or bleeding from the nose or ears Fever of 100.4 F (38 C) or higher, or as directed by your healthcare provider Call 911 Call 911 if any of the following occur: Repeated vomiting Unusual drowsiness or trouble awakening Fainting or loss of consciousness Seizure Worsening confusion, memory loss, dizziness, headache, behavior, speech, or vision [phone] [employer] [place] [address]. All rights reserved. This information is not intended as a substitute for professional medical care. Always follow yourhealthcare professional's instructions. Follow Up Care 01/15/2022 08:57:52 With:MARCIO SELF MD Address: When:2-4 days [facility] Evaluation + Plan note Future Appointments Appointment Date:10/08/2021 04:00:00 PM Scheduled Provider:MARCIO ESLF MD Location:[facility] Appointment Type:PC OV Appointment Date:10/09/2021 10:20:00 AM Scheduled Provider: Location:[facility] Appointment Type:CT Chest w/ Contrast Appointment Date:12/02/2021 09:30:00 AM Scheduled Provider:MARCIO SELF MD Location:[facility] Appointment Type:PC OV Controlled Medication Appointment Date:12/18/2021 02:00:00 PM Scheduled Provider:MARCIO SELF MD Location:[facility] Appointment Type:PC OV Future Scheduled Tests Laboratory* Thyroid Stimulating Hormone 02/20/21 * Free T4 01/17/21 * Complete Blood Count 11/22/20 * Free T3 01/17/21 * Lipid Profile 02/20/21 * Complete Metabolic Panel 02/20/21 Radiology* CT Thorax w/ Contrast 10/09/21 [facility] evaluation + Plan note Future Appointments Appointment Date:11/05/2021 02:00:00 PM Scheduled Provider:MARCIO SELF MD Location:[facility] Appointment Type:PC OV Appointment Date:12/02/2021 09:30:00 AM Scheduled Provider:MARCIO SELF MD Location:[facility] Appointment Type:PC OV Controlled Medication Appointment Date:12/18/2021 02:00:00 PM Scheduled Provider:MARCIO SELF MD Location:[facility] Appointment Type:PC OV Future Scheduled Tests Laboratory* Ferritin 10/08/21 * Thyroid Stimulating Hormone 10/08/21 * Thyroid Stimulating Hormone 02/20/21 * Free T4 10/08/21 * Free T4 01/17/21 * Uric Acid 10/08/21 * Complete Blood Count 10/08/21 * Complete Blood Count 11/22/20 * Free T3 01/17/21 * Lipid Profile 10/08/21 * Lipid Profile 02/20/21 * Complete Metabolic Panel 10/08/21 * Complete Metabolic Panel 02/20/21 [facility] Evaluation + Plan note Future Appointments Appointment Date:11/05/2021 02:00:00 PM Scheduled Provider:MARCIO SELF MD Location:[facility] Appointment Type:PC OV Appointment Date:12/02/2021 09:30:00 AM Scheduled Provider:MARCIO SELF MD Location:[facility] Appointment Type:PC OV Controlled Medication Appointment Date:12/18/2021 02:00:00 PM Scheduled Provider:MARCIO SELF MD Location:[facility] Appointment Type:PC OV Future Scheduled Tests Laboratory* Thyroid Stimulating Hormone 02/20/21 * Free T4 01/17/21 * Complete Blood Count 11/22/20 * Free T3 01/17/21 * Lipid Profile 02/20/21 * Complete Metabolic Panel 02/20/21 [facility] Evaluation + Plan note Future Appointments Appointment Date:12/02/2021 09:30:00 AM Scheduled Provider:MARCIO SELF MD Location:[facility] Appointment Type:PC OV Controlled Medication Appointment Date:02/03/2022 10:00:00 AM Scheduled Provider:MARCIO SELF MD Location:[facility] Appointment Type:PC OV Future Scheduled Tests Laboratory* Thyroid Stimulating Hormone 02/20/21 * Free T4 01/17/21 * Free T3 01/17/21 * Lipid Profile 02/20/21 * Complete Metabolic Panel 02/20/21 Radiology* XR Chest 2 Views (PA & Lateral) 11/13/21 [facility] Evaluation + Plan note Future Appointments Appointment Date:12/24/2021 09:30:00 AM Scheduled Provider: Location:[facility] Appointment Type:MA Mammogram Screening Bilateral w/ Shahbaz Appointment Date:02/03/2022 10:00:00 AM Scheduled Provider:MARCIO SELF MD Location:[facility] Appointment Type:PC OV Appointment Date:06/02/2022 09:30:00 AM Scheduled Provider:MARCIO SELF MD Location:[facility] Appointment Type:PC OV Controlled Medication Future Scheduled Tests Laboratory* Thyroid Stimulating Hormone 02/20/21 * Free T4 01/17/21 * Free T3 01/17/21 * Lipid Profile 02/20/21 * Complete Metabolic Panel 02/20/21 Radiology* XR Chest 2 Views (PA & Lateral) 11/13/21 * MA Mammo Screening Bilateral w/ Shahbaz 12/24/21 [facility] Evaluation + Plan note Future Appointments Appointment Date:02/03/2022 10:00:00 AM Scheduled Provider:MARCIO SELF MD Location:[facility] Appointment Type:PC OV Appointment Date:06/02/2022 09:30:00 AM Scheduled Provider:MARCIO SELF MD Location:[facility] Appointment Type:PC OV Controlled Medication Future Scheduled Tests Laboratory* Thyroid Stimulating Hormone 02/20/21 * Free T4 01/17/21 * Free T3 01/17/21 * Lipid Profile 02/20/21 * Complete Metabolic Panel 02/20/21 Radiology* XR Foot Minimum 3 Views Left 12/25/21 * XR Ankle Minimum 3 Views Left 12/25/21 * XR Chest 2 Views (PA & Lateral) 11/13/21 * MA Mammo Screening Bilateral w/ Shahbaz 12/24/21 [facility] Evaluation + Plan note Future Appointments Appointment Date:01/21/2022 04:00:00 PM Scheduled Provider:MARCIO SELF MD Location:[facility] Appointment Type:PC OV ED Follow Up Appointment Date:02/03/2022 10:00:00 AM Scheduled Provider:MARCIO SELF MD Location:[facility] Appointment Type:PC OV Appointment Date:06/02/2022 09:30:00 AM Scheduled Provider:MARCIO SELF MD Location:[facility] Appointment Type:PC OV Controlled Medication Future Scheduled Tests Laboratory* Thyroid Stimulating Hormone 02/20/21 * Free T4 01/17/21 * Free T3 01/17/21 * Lipid Profile 02/20/21 * Complete Metabolic Panel 02/20/21 Radiology* XR Foot Minimum 3 Views Left 12/25/21 * XR Ankle Minimum 3 Views Left 12/25/21 * XR Chest 2 Views (PA & Lateral) 11/13/21 * MA Mammo Screening Bilateral w/ Shahbaz 12/24/21 [facility] evaluation + Plan note Future Appointments Appointment Date:02/03/2022 10:00:00 AM Scheduled Provider:MARCIO SELF MD Location:[facility] Appointment Type:PC OV Appointment Date:06/02/2022 09:30:00 AM Scheduled Provider:MARCIO SELF MD Location:[facility] Appointment Type:PC OV Controlled Medication Future Scheduled Tests Laboratory* Thyroid Stimulating Hormone 02/20/21 * Lipid Profile 02/20/21 * Complete Metabolic Panel 02/20/21 Radiology* XR Foot Minimum 3 Views Left 12/25/21 * BD Bone Density DEXA Axial Skeleton 01/21/22 * XR Ankle Minimum 3 Views Left 12/25/21 * XR Chest 2 Views (PA & Lateral) 11/13/21 [facility] Evaluation + Plan note Future Appointments Appointment Date:06/02/2022 09:30:00 AM Scheduled Provider:MARCIO SELF MD Location:[facility] Appointment Type:PC OV Controlled Medication Future Scheduled Tests Laboratory* Thyroid Stimulating Hormone 02/20/21 * Complete Blood Count 01/26/22 * Lipid Profile 02/20/21 * Complete Metabolic Panel 02/20/21 Radiology* XR Foot Minimum 3 Views Left 12/25/21 * BD Bone Density DEXA Axial Skeleton 01/21/22 * XR Ankle Minimum 3 Views Left 12/25/21 * XR Chest 2 Views (PA & Lateral) 11/13/21 [facility] Evaluation + Plan note Future Appointments Appointment Date:03/05/2022 11:00:00 AM Scheduled Provider: Location:[facility] Appointment Type:PT Treatment - [place] Appointment Date:03/09/2022 09:30:00 AM Scheduled Provider: Location:[facility] Appointment Type:PT Treatment - [place] Appointment Date:03/11/2022 01:30:00 PM Scheduled Provider: Location:[facility] Appointment Type:PT Treatment - [place] Appointment Date:03/12/2022 11:00:00 AM Scheduled Provider: Location:[facility] Appointment Type:PT Treatment - [place] Appointment Date:03/16/2022 01:30:00 PM Scheduled Provider: Location:[facility] Appointment Type:PT Treatment - [place] Appointment Date:03/20/2022 09:30:00 AM Scheduled Provider: Location:[facility] Appointment Type:PT Treatment - [place] Appointment Date:06/02/2022 09:30:00 AM Scheduled Provider:MARCIO SELF MD Location:[facility] Appointment Type:PC OV Controlled Medication Future Scheduled Tests Laboratory* Thyroid Stimulating Hormone 02/20/21 * Complete Blood Count 01/26/22 * Lipid Profile 02/20/21 * Complete Metabolic Panel 02/20/21 Radiology* XR Foot Minimum 3 Views Left 12/25/21 * XR Ankle Minimum 3 Views Left 12/25/21 * XR Chest 2 Views (PA & Lateral) 11/13/21 [facility] Evaluation + Plan note Future Appointments Appointment Date:03/09/2022 09:30:00 AM Scheduled Provider: Location:[facility] Appointment Type:PT Treatment - [place] Appointment Date:03/11/2022 01:30:00 PM Scheduled Provider: Location:[facility] Appointment Type:PT Treatment - [place] Appointment Date:03/12/2022 11:00:00 AM Scheduled Provider: Location:[facility] Appointment Type:PT Treatment - [place] Appointment Date:03/16/2022 01:30:00 PM Scheduled Provider: Location:[facility] Appointment Type:PT Treatment - [place] Appointment Date:03/20/2022 09:30:00 AM Scheduled Provider: Location:[facility] Appointment Type:PT Treatment - [place] Appointment Date:06/02/2022 09:30:00 AM Scheduled Provider:MARCIO SELF MD Location:[facility] Appointment Type:PC OV Controlled Medication Future Scheduled Tests Laboratory* Thyroid Stimulating Hormone 02/20/21 * Complete Blood Count 01/26/22 * Lipid Profile 02/20/21 * Complete Metabolic Panel 02/20/21 Radiology* XR Foot Minimum 3 Views Left 12/25/21 * XR Ankle Minimum 3 Views Left 12/25/21 * XR Chest 2 Views (PA & Lateral) 11/13/21 * XR Knee One or Two Views Bilateral 03/05/22 * XR Skull Minimum 4 Views 03/05/22 * XR Spine Thoracic 2 Views 03/05/22 * XR Spine Lumbar AP/LAT 03/05/22 * XR Spine Cervical AP/LAT 03/05/22 [facility] Evaluation + Plan note Future Appointments Appointment Date:04/30/2022 10:00:00 AM Scheduled Provider:MARCIO SELF MD Location:[facility] Appointment Type:PC OV Appointment Date:06/02/2022 09:30:00 AM Scheduled Provider:MARCIO SELF MD Location:[facility] Appointment Type:PC OV Controlled Medication Future Scheduled Tests Laboratory* Complete Blood Count 01/26/22 Radiology* XR Foot Minimum 3 Views Left 12/25/21 * XR Ankle Minimum 3 Views Left 12/25/21 * XR Chest 2 Views (PA & Lateral) 11/13/21 * XR Knee One or Two Views Bilateral 03/05/22 * XR Skull Minimum 4 Views 03/05/22 * XR Spine Thoracic 2 Views 03/05/22 * XR Spine Lumbar AP/LAT 03/05/22 * XR Spine Cervical AP/LAT 03/05/22 [facility] Evaluation + Plan note Future Appointments Appointment Date:04/24/2022 10:00:00 AM Scheduled Provider: Location:[facility] Appointment Type:PT Outpatient Evaluation Appointment Date:04/30/2022 10:00:00 AM Scheduled Provider:MARCIO SELF MD Location:[facility] Appointment Type:PC OV Appointment Date:06/02/2022 09:30:00 AM Scheduled Provider:MARCIO SELF MD Location:[facility] Appointment Type:PC OV Controlled Medication Future Scheduled Tests Laboratory* Complete Blood Count 01/26/22 Radiology* XR Foot Minimum 3 Views Left 12/25/21 * XR Ankle Minimum 3 Views Left 12/25/21 * XR Chest 2 Views (PA & Lateral) 11/13/21 * XR Knee One or Two Views Bilateral 03/05/22 * XR Skull Minimum 4 Views 03/05/22 * XR Spine Thoracic 2 Views 03/05/22 * XR Spine Lumbar AP/LAT 03/05/22 * XR Spine Cervical AP/LAT 03/05/22 [facility] Evaluation + Plan note Future Appointments Appointment Date:05/13/2022 02:30:00 PM Scheduled Provider: Location:[facility] Appointment Type:PT Treatment - [place] Appointment Date:05/18/2022 02:30:00 PM Scheduled Provider: Location:[facility] Appointment Type:PT Treatment - [place] Appointment Date:05/20/2022 02:30:00 PM Scheduled Provider: Location:[facility] Appointment Type:PT Treatment - [place] Appointment Date:06/02/2022 09:30:00 AM Scheduled Provider:MARCIO SELF MD Location:[facility] Appointment Type:PC OV Controlled Medication Appointment Date:07/30/2022 09:30:00 AM Scheduled Provider:MARCIO SELF MD Location:[facility] Appointment Type:PC OV Diagnostic Tests Pending * AMINA Panel 05/12/22 * Copper Level 05/12/22 * Vitamin B6 Level 05/12/22 Future Scheduled Tests Laboratory* Thyroid Stimulating Hormone 07/31/22 * Free T4 04/30/22 * Complete Blood Count 01/26/22 * Complete Blood Count 04/30/22 * Lipid Profile 07/31/22 Radiology* XR Foot Minimum 3 Views Left 12/25/21 * XR Ankle Minimum 3 Views Left 12/25/21 * XR Chest 2 Views (PA & Lateral) 11/13/21 * XR Knee One or Two Views Bilateral 03/05/22 * XR Skull Minimum 4 Views 03/05/22 * XR Spine Thoracic 2 Views 03/05/22 * XR Spine Lumbar AP/LAT 03/05/22 * XR Spine Cervical AP/LAT 03/05/22 [facility] Evaluation + Plan note Future Appointments Appointment Date:07/30/2022 09:30:00 AM Scheduled Provider:MARCIO SELF MD Location:[facility] Appointment Type:PC OV Future Scheduled Tests Laboratory* Thyroid Stimulating Hormone 07/31/22 * Free T4 04/30/22 * Complete Blood Count 01/26/22 * Complete Blood Count 04/30/22 * Lipid Profile 07/31/22 * Complete Metabolic Panel 06/02/22 Radiology* XR Foot Minimum 3 Views Left 12/25/21 * XR Ankle Minimum 3 Views Left 12/25/21 * XR Chest 2 Views (PA & Lateral) 11/13/21 * XR Knee One or Two Views Bilateral 03/05/22 * XR Skull Minimum 4 Views 03/05/22 * XR Spine Thoracic 2 Views 03/05/22 * XR Spine Lumbar AP/LAT 03/05/22 * XR Spine Cervical AP/LAT 03/05/22 [facility] Evaluation + Plan note Future Appointments Appointment Date:11/18/2022 10:00:00 AM Scheduled Provider:MARCIO SELF MD Location:[facility] Appointment Type:PC OV Appointment Date:12/02/2022 10:00:00 AM Scheduled Provider:MARCIO SELF MD Location:[facility] Appointment Type:PC OV Controlled Medication Future Scheduled Tests Laboratory* Thyroid Stimulating Hormone 07/31/22 * Free T4 04/30/22 * Complete Blood Count 01/26/22 * Complete Blood Count 04/30/22 * Lipid Profile 07/31/22 * Complete Metabolic Panel 06/02/22 Radiology* XR Foot Minimum 3 Views Left 12/25/21 * XR Ankle Minimum 3 Views Left 12/25/21 * XR Chest 2 Views (PA & Lateral) 11/13/21 * XR Knee One or Two Views Bilateral 03/05/22 * XR Skull Minimum 4 Views 03/05/22 * XR Spine Thoracic 2 Views 03/05/22 * XR Spine Lumbar AP/LAT 03/05/22 * XR Spine Cervical AP/LAT 03/05/22 [facility] Evaluation + Plan note Future Appointments Appointment Date:02/26/2023 11:00:00 AM Scheduled Provider:MARCIO SELF MD Location:[facility] Appointment Type:PC OV Controlled Medication Appointment Date:05/19/2023 10:00:00 AM Scheduled Provider:MARCIO SELF MD Location:[facility] Appointment Type:PC OV Future Scheduled Tests Laboratory* Thyroid Stimulating Hormone 07/31/22 * Free T4 04/30/22 * Complete Blood Count 04/30/22 * Lipid Profile 07/31/22 * Complete Metabolic Panel 06/02/22 Radiology* XR Knee One or Two Views Bilateral 03/05/22 * XR Skull Minimum 4 Views 03/05/22 * XR Spine Thoracic 2 Views 03/05/22 * XR Spine Lumbar AP/LAT 03/05/22 * XR Spine Cervical AP/LAT 03/05/22 [facility] Evaluation + Plan note Future Appointments Appointment Date:04/26/2023 01:30:00 PM Scheduled Provider: Location:[facility] Appointment Type:PT Treatment [facility] Appointment Date:04/28/2023 01:00:00 PM Scheduled Provider: Location:[facility] Appointment Type:PT [facility] Appointment Date:05/03/2023 09:30:00 AM Scheduled Provider: Location:[facility] Appointment Type:PT Treatment [facility] Appointment Date:05/05/2023 01:00:00 PM Scheduled Provider: Location:[facility] Appointment Type:PT [facility] Appointment Date:05/10/2023 09:30:00 AM Scheduled Provider: Location:[facility] Appointment Type:PT [facility] Appointment Date:05/12/2023 01:00:00 PM Scheduled Provider: Location:[facility] Appointment Type:PT [facility] Appointment Date:05/17/2023 01:30:00 PM Scheduled Provider: Location:[facility] Appointment Type:PT [facility] Appointment Date:05/19/2023 10:00:00 AM Scheduled Provider:MARCIO SELF MD Location:[facility] Appointment Type:PC OV Appointment Date:06/23/2023 10:00:00 AM Scheduled Provider: Location:[facility] Appointment Type:CV OV Future Scheduled Tests Laboratory* Thyroid Stimulating Hormone 07/31/22 * Free T4 04/30/22 * Complete Blood Count 04/30/22 * Lipid Profile 07/31/22 * Complete Metabolic Panel 06/02/22 Radiology* MA Mammo Screening Bilateral w/ Shahbaz 04/06/23 * MA Mammo Screening Bilateral w/ Shahbaz 04/09/23 [facility] Evaluation + Plan note Future Appointments Appointment Date:05/05/2023 01:00:00 PM Scheduled Provider: Location:[facility] Appointment Type:PT Treatment [facility] Appointment Date:05/10/2023 09:30:00 AM Scheduled Provider: Location:[facility] Appointment Type:[facility] Appointment Date:05/11/2023 01:00:00 PM Scheduled Provider: Location:[facility] Appointment Type:MRI Spine Cervical w/o Contrast Appointment Date:05/11/2023 01:45:00 PM Scheduled Provider: Location:[facility] Appointment Type:MRI Spine Thoracic w/o Contrast Appointment Date:05/12/2023 01:00:00 PM Scheduled Provider: [facility]:05/14/[facility]23 11:15:00 AM Scheduled Provider: Location:[facility] Appointment Type:MRI Spine Lumbar w/o Contrast Appointment Date:05/17/2023 01:30:00 PM Scheduled Provider: Location:[facility] Appointment Type:PT Treatment [facility] Appointment Date:05/19/2023 10:00:00 AM Scheduled Provider:MARCIO SELF MD Location:[facility] Appointment Type:PC OV Appointment Date:06/07/2023 11:30:00 AM Scheduled Provider:HEIDI NG MD Location:[facility] Appointment Type:[facility] Appointment Date:06/23/2023 10:00:00 AM Scheduled Provider: Location:[facility] Appointment Type:CV OV Diagnostic Tests Pending * Aldolase 05/03/23 Future Scheduled Tests Laboratory* Thyroid Stimulating Hormone 07/31/22 * Lipid Profile 07/31/22 * Complete Metabolic Panel 06/02/22 Radiology* MA Mammo Screening Bilateral w/ Shahbaz 04/06/23 * MA Mammo Screening Bilateral w/ Shahbaz 04/09/23 * MRI Spine Cervical w/o Contrast 05/11/23 * MRI Spine Lumbar w/o Contrast 05/14/23 * MRI Spine Thoracic w/o Contrast 05/11/23 [facility] Evaluation + Plan note Future Appointments Appointment Date:06/07/2023 11:30:00 AM Scheduled Provider:HEIDI NG MD Location:[facility] Appointment Type:PM [facility] Appointment Date:06/11/2023 09:00:00 AM Scheduled Provider:MARCIO SELF MD Location:[facility] Appointment Type:PC OV Appointment Date:06/23/2023 10:00:00 AM Scheduled Provider: Location:[facility] Appointment Type:CV OV Future Scheduled Tests Laboratory* Calcium Level Ionized 05/05/23 * Ferritin 05/05/23 * Thyroid Stimulating Hormone 05/05/23 * Thyroid Stimulating Hormone 07/31/22 * Free T4 05/05/23 * Vitamin B12 Level 05/05/23 * Complete Blood Count 05/05/23 * Free T3 05/05/23 * Lipid Profile 05/05/23 * Lipid Profile 07/31/22 * Vitamin D Level 05/05/23 * Complete Metabolic Panel 06/02/22 * Complete Metabolic Panel 05/05/23 Radiology* MA Mammo Screening Bilateral w/ Shahbaz 04/06/23 * MA Mammo Screening Bilateral w/ Shahbaz 04/09/23 [facility] Evaluation + Plan note Future Appointments Appointment Date:09/17/2023 10:45:00 AM Scheduled Provider:MARCIO SELF MD Location:[facility] Appointment Type: OV Future Scheduled Tests Laboratory* Calcium Level Ionized 05/05/23 * Ferritin 05/05/23 * Thyroid Stimulating Hormone 05/05/23 * Thyroid Stimulating Hormone 07/31/22 * Free T4 05/05/23 * Vitamin B12 Level 05/05/23 * Complete Blood Count 05/05/23 * Free T3 05/05/23 * Lipid Profile 05/05/23 * Lipid Profile 07/31/22 * Vitamin D Level 05/05/23 * Complete Metabolic Panel 05/05/23 Radiology* MA Mammo Screening Bilateral w/ Shahbaz 04/06/23 * MA Mammo Screening Bilateral w/ Shahbaz 04/09/23 [facility] Evaluation + Plan note Future Appointments Appointment Date:08/31/2023 09:30:00 AM Scheduled Provider: Location:[facility] Appointment Type:PT [facility] Appointment Date:09/02/2023 09:30:00 AM Scheduled Provider: Location:[facility] Appointment Type:PT [facility] Appointment Date:09/07/2023 09:30:00 AM Scheduled Provider: Location:[facility] Appointment Type:PT [facility] Appointment Date:09/10/2023 09:30:00 AM Scheduled Provider: Location:[facility] Appointment Type:PT [facility] Appointment Date:09/14/2023 09:30:00 AM Scheduled Provider: Location:[facility] Appointment Type:PT [facility] Appointment Date:09/16/2023 09:30:00 AM Scheduled Provider: Location:[facility] Appointment Type:[facility] Appointment Date:09/17/2023 10:45:00 AM Scheduled Provider:MARCIO SELF MD Location:[facility] Appointment Type: OV Future Scheduled Tests Laboratory* Calcium Level Ionized 05/05/23 * Ferritin 05/05/23 * Urinalysis 08/13/23 * Thyroid Stimulating Hormone 05/05/23 * Free T4 05/05/23 * Vitamin B12 Level 05/05/23 * Complete Blood Count 05/05/23 * Free T3 05/05/23 * Lipid Profile 05/05/23 * Vitamin D Level 05/05/23 * Complete Metabolic Panel 05/05/23 Radiology* MA Mammo Screening Bilateral w/ Shahbaz 04/06/23 * MA Mammo Screening Bilateral w/ Shahbaz 04/09/23 [facility] Evaluation + Plan note Future Appointments Appointment Date:09/21/2023 10:30:00 AM Scheduled Provider: Location:[facility] Appointment Type:[facility] Appointment Date:09/27/2023 09:00:00 AM Scheduled Provider: Location:[facility] Appointment Type:[facility] Appointment Date:12/16/2023 11:00:00 AM Scheduled Provider:MARCIO SELF MD Location:[facility] Appointment Type:[facility] Future Scheduled Tests Laboratory* Calcium Level Ionized 05/05/23 * Ferritin 05/05/23 * Urinalysis 08/13/23 * Thyroid Stimulating Hormone 05/05/23 * Thyroid Stimulating Hormone 12/18/23 * Free T4 05/05/23 * Vitamin B12 Level 05/05/23 * Vitamin B12 Level 09/17/23 * Complete Blood Count 05/05/23 * Complete Blood Count 09/17/23 * Free T3 05/05/23 * Lipid Profile 05/05/23 * Lipid Profile 12/18/23 * Vitamin D Level 05/05/23 * Complete Metabolic Panel 05/05/23 * Complete Metabolic Panel 12/18/23 * anti-Thyroid Peroxidase 09/17/23 Radiology* MA Mammo Screening Bilateral w/ Shahbaz 04/06/23 * MA Mammo Screening Bilateral w/ Shahbaz 04/09/23 [facility] Evaluation + Plan note Future Appointments Appointment Date:10/11/2023 10:30:00 AM Scheduled Provider:HEIDI NG MD Location:[facility] Appointment Type:PM OV Appointment Date:12/16/2023 11:00:00 AM Scheduled Provider:MARCIO SELF MD Location:[facility] Appointment Type: OV Future Scheduled Tests Laboratory* Calcium Level Ionized 05/05/23 * Ferritin 05/05/23 * Urinalysis 08/13/23 * Thyroid Stimulating Hormone 05/05/23 * Thyroid Stimulating Hormone 12/18/23 * Free T4 05/05/23 * Vitamin B12 Level 05/05/23 * Vitamin B12 Level 09/17/23 * Complete Blood Count 05/05/23 * Complete Blood Count 09/17/23 * Free T3 05/05/23 * Lipid Profile 05/05/23 * Lipid Profile 12/18/23 * Vitamin D Level 05/05/23 * Complete Metabolic Panel 05/05/23 * Complete Metabolic Panel 12/18/23 * anti-Thyroid Peroxidase 09/17/23 Radiology* MA Mammo Screening Bilateral w/ Shahbaz 04/06/23 * MA Mammo Screening Bilateral w/ Shahbaz 04/09/23 [facility] Evaluation + Plan note Future Appointments Appointment Date:12/16/2023 11:00:00 AM Scheduled Provider:MARCIO SELF MD Location:[facility] Appointment Type: OV Future Scheduled Tests Laboratory* Calcium Level Ionized 05/05/23 * Ferritin 05/05/23 * Urinalysis 08/13/23 * Thyroid Stimulating Hormone 05/05/23 * Thyroid Stimulating Hormone 12/18/23 * Free T4 05/05/23 * Vitamin B12 Level 05/05/23 * Vitamin B12 Level 09/17/23 * Complete Blood Count 05/05/23 * Complete Blood Count 09/17/23 * Free T3 05/05/23 * Lipid Profile 05/05/23 * Lipid Profile 12/18/23 * Vitamin D Level 05/05/23 * Complete Metabolic Panel 05/05/23 * Complete Metabolic Panel 12/18/23 * anti-Thyroid Peroxidase 09/17/23 Radiology* MA Mammo Screening Bilateral w/ Shahbaz 04/06/23 * MA Mammo Screening Bilateral w/ Shahbaz 04/09/23 [facility] Evaluation + Plan note Future Appointments Appointment Date:06/02/2024 10:00:00 AM Scheduled Provider:MARCIO SELF MD Location:[facility] Appointment Type:PC OV Appointment Date:06/23/2024 09:30:00 AM Scheduled Provider: Location:[facility] Appointment Type:CV OV Diagnostic Tests Pending * Vitamin B1 (Thiamine), Blood 04/26/24 Future Scheduled Tests Laboratory* Calcium Level Ionized 05/05/23 * Ferritin 02/22/24 * Ferritin 05/05/23 * Urinalysis 08/13/23 * Thyroid Stimulating Hormone 02/22/24 * Thyroid Stimulating Hormone 05/05/23 * Thyroid Stimulating Hormone 12/18/23 * Free T4 02/22/24 * Free T4 05/05/23 * Vitamin B12 Level 02/22/24 * Vitamin B12 Level 05/05/23 * Vitamin B12 Level 09/17/23 * Complete Blood Count 02/22/24 * Complete Blood Count 05/05/23 * Complete Blood Count 09/17/23 * Free T3 02/22/24 * Free T3 05/05/23 * Lipid Profile 02/22/24 * Lipid Profile 05/05/23 * Lipid Profile 12/18/23 * Vitamin D Level 02/22/24 * Vitamin D Level 05/05/23 * Complete Metabolic Panel 02/22/24 * Complete Metabolic Panel 05/05/23 * Complete Metabolic Panel 12/18/23 * anti-Thyroid Peroxidase 09/17/23 Radiology* XR Chest 2 Views (PA & Lateral) 12/24/23 [facility] Evaluation + Plan note Future Appointments Appointment Date:07/27/2024 01:00:00 PM Scheduled Provider:MARCIO SELF MD Location:[facility] Appointment Type:PC OV ED Follow Up Appointment Date:09/15/2024 09:00:00 AM Scheduled Provider:MARCIO SELF MD Location:[facility] Appointment Type:PC Wellness Medicare Future Scheduled Tests Laboratory* Ferritin 05/30/24 * Ferritin 02/22/24 * Urinalysis 08/13/23 * Thyroid Stimulating Hormone 05/30/24 * Thyroid Stimulating Hormone 02/22/24 * Thyroid Stimulating Hormone 12/18/23 * Free T4 02/22/24 * Vitamin B12 Level 02/22/24 * Vitamin B12 Level 09/17/23 * Complete Blood Count 05/30/24 * Complete Blood Count 02/22/24 * Complete Blood Count 09/17/23 * Free T3 05/30/24 * Free T3 02/22/24 * Lipid Profile 05/30/24 * Lipid Profile 02/22/24 * Lipid Profile 12/18/23 * Vitamin D Level 02/22/24 * Complete Metabolic Panel 05/30/24 * Complete Metabolic Panel 02/22/24 * Complete Metabolic Panel 12/18/23 * anti-Thyroid Peroxidase 09/17/23 Radiology* XR Chest 2 Views (PA & Lateral) 12/24/23 [facility] Evaluation + Plan note Future Appointments Appointment Date:10/23/2024 01:00:00 PM Scheduled Provider:[place] [id number] Location:[facility] Appointment Type:PT [facility] Appointment Date:10/27/2024 01:00:00 PM Scheduled Provider:[place] [id number] Location:[facility] Appointment Type:PT [facility] Appointment Date:11/02/2024 02:00:00 PM Scheduled Provider:JHONATHAN DELUNA DO Location:[facility] Appointment Type:PC OV ED Follow Up Appointment Date:12/26/2024 09:30:00 AM Scheduled Provider:MARCIO SELF MD Location:[facility] Appointment Type:PC OV Controlled Medication Future Scheduled Tests Laboratory* Ferritin 09/06/24 * Ferritin 05/30/24 * Ferritin 02/22/24 * Thyroid Stimulating Hormone 09/06/24 * Thyroid Stimulating Hormone 05/30/24 * Thyroid Stimulating Hormone 02/22/24 * Thyroid Stimulating Hormone 12/18/23 * Free T4 09/06/24 * Free T4 02/22/24 * Vitamin B12 Level 09/06/24 * Vitamin B12 Level 02/22/24 * Complete Blood Count 09/06/24 * Complete Blood Count 05/30/24 * Complete Blood Count 02/22/24 * Free T3 09/06/24 * Free T3 05/30/24 * Free T3 02/22/24 * Lipid Profile 09/06/24 * Lipid Profile 05/30/24 * Lipid Profile 02/22/24 * Lipid Profile 12/18/23 * Vitamin D Level 09/06/24 * Vitamin D Level 02/22/24 * Complete Metabolic Panel 09/06/24 * Complete Metabolic Panel 05/30/24 * Complete Metabolic Panel 02/22/24 * Complete Metabolic Panel 12/18/23 Radiology* XR Chest 2 Views (PA & Lateral) 12/24/23 [facility] Evaluation + Plan note Future Appointments Appointment Date:12/26/2024 09:30:00 AM Scheduled Provider:MARCIO SELF MD Location:[facility] Appointment Type:PC OV Controlled Medication Future Scheduled Tests Laboratory* Ferritin 09/06/24 * Ferritin 05/30/24 * Ferritin 02/22/24 * Thyroid Stimulating Hormone 09/06/24 * Thyroid Stimulating Hormone 05/30/24 * Thyroid Stimulating Hormone 02/22/24 * Thyroid Stimulating Hormone 12/18/23 * Free T4 09/06/24 * Free T4 02/22/24 * Vitamin B12 Level 09/06/24 * Vitamin B12 Level 02/22/24 * Complete Blood Count 09/06/24 * Complete Blood Count 05/30/24 * Complete Blood Count 02/22/24 * Free T3 09/06/24 * Free T3 05/30/24 * Free T3 02/22/24 * Lipid Profile 09/06/24 * Lipid Profile 05/30/24 * Lipid Profile 02/22/24 * Lipid Profile 12/18/23 * Vitamin D Level 09/06/24 * Vitamin D Level 02/22/24 * Complete Metabolic Panel 09/06/24 * Complete Metabolic Panel 05/30/24 * Complete Metabolic Panel 02/22/24 * Complete Metabolic Panel 12/18/23 Radiology* XR Chest 2 Views (PA & Lateral) 12/24/23 [facility] Evaluation + Plan note Future Appointments Appointment Date:03/20/2025 10:00:00 AM Scheduled Provider:MARCIO SELF MD Location:[facility] Appointment Type:PC OV Future Scheduled Tests Laboratory* Ferritin 09/06/24 * Ferritin 05/30/24 * Ferritin 02/22/24 * Thyroid Stimulating Hormone 09/06/24 * Thyroid Stimulating Hormone 05/30/24 * Thyroid Stimulating Hormone 02/22/24 * Thyroid Stimulating Hormone 12/18/23 * Free T4 09/06/24 * Free T4 02/22/24 * Vitamin B12 Level 09/06/24 * Vitamin B12 Level 02/22/24 * Complete Blood Count 09/06/24 * Complete Blood Count 05/30/24 * Complete Blood Count 02/22/24 * Free T3 09/06/24 * Free T3 05/30/24 * Free T3 02/22/24 * Lipid Profile 09/06/24 * Lipid Profile 05/30/24 * Lipid Profile 02/22/24 * Lipid Profile 12/18/23 * Vitamin D Level 09/06/24 * Vitamin D Level 02/22/24 * Complete Metabolic Panel 09/06/24 * Complete Metabolic Panel 05/30/24 * Complete Metabolic Panel 02/22/24 * Complete Metabolic Panel 12/18/23 [facility] Evaluation + Plan note Future Appointments Appointment Date:02/27/2025 11:00:00 AM Scheduled Provider: Location:[facility] Appointment Type:MRI Spine Cervical w/o Contrast Appointment Date:02/28/2025 09:45:00 AM Scheduled Provider:BALDOMERO MAGAÑA DO Location:[facility] Appointment Type:[facility] Appointment Date:03/07/2025 11:15:00 AM Scheduled Provider:BALDO CASEY MD Location:[facility] Appointment Type:NS OV Appointment Date:03/20/2025 10:00:00 AM Scheduled Provider:MARCIO SELF MD Location:[facility] Appointment Type:PC OV Appointment Date:10/03/2025 02:00:00 PM Scheduled Provider:MARCIO SELF MD Location:[facility] Appointment Type:PC Wellness Medicare Future Scheduled Tests Laboratory* Ferritin 09/06/24 * Ferritin 05/30/24 * Thyroid Stimulating Hormone 09/06/24 * Thyroid Stimulating Hormone 05/30/24 * Free T4 09/06/24 * Vitamin B12 Level 09/06/24 * Complete Blood Count 09/06/24 * Complete Blood Count 05/30/24 * Free T3 09/06/24 * Free T3 05/30/24 * Lipid Profile 09/06/24 * Lipid Profile 05/30/24 * Vitamin D Level 09/06/24 * Complete Metabolic Panel 09/06/24 * Complete Metabolic Panel 05/30/24 Radiology* MRI Spine Cervical w/o Contrast 02/27/25 [facility] Evaluation + Plan note Future Appointments Appointment Date:02/28/2025 09:45:00 AM Scheduled Provider:BALDOMERO MAGAÑA DO Location:[facility] Appointment Type:[facility] CORE MICROARCHITECT Appointment Date:03/07/2025 11:15:00 AM Scheduled Provider:BALDO CASEY MD Location:[facility] Appointment Type:NS OV Appointment Date:03/20/2025 10:00:00 AM Scheduled Provider:MARCIO SELF MD Location:[facility] Appointment Type:PC OV Appointment Date:10/03/2025 02:00:00 PM Scheduled Provider:MARCIO SELF MD Location:[facility] Appointment Type:PC Wellness Medicare Future Scheduled Tests Laboratory* Ferritin 09/06/24 * Ferritin 05/30/24 * Thyroid Stimulating Hormone 09/06/24 * Thyroid Stimulating Hormone 05/30/24 * Free T4 09/06/24 * Vitamin B12 Level 09/06/24 * Complete Blood Count 09/06/24 * Complete Blood Count 05/30/24 * Free T3 09/06/24 * Free T3 05/30/24 * Lipid Profile 09/06/24 * Lipid Profile 05/30/24 * Vitamin D Level 09/06/24 * Complete Metabolic Panel 09/06/24 * Complete Metabolic Panel 05/30/24 [facility] Evaluation + Plan note Future Appointments Appointment Date:03/20/2025 10:00:00 AM Scheduled Provider:MARCIO SELF MD Location:[facility] Appointment Type:PC OV Appointment Date:03/27/2025 10:00:00 AM Scheduled Provider:ANISA OSULLIVAN DO Location:[facility] Appointment Type:[facility] OV New Problem Appointment Date:10/03/2025 02:00:00 PM Scheduled Provider:MARCIO SELF MD Location:[facility] Appointment Type:PC Wellness Medicare Future Scheduled Tests Laboratory* Ferritin 09/06/24 * Ferritin 05/30/24 * Thyroid Stimulating Hormone 09/06/24 * Thyroid Stimulating Hormone 05/30/24 * Free T4 09/06/24 * Vitamin B12 Level 09/06/24 * Complete Blood Count 09/06/24 * Complete Blood Count 05/30/24 * Free T3 09/06/24 * Free T3 05/30/24 * Lipid Profile 09/06/24 * Lipid Profile 05/30/24 * Vitamin D Level 09/06/24 * Complete Metabolic Panel 09/06/24 * Complete Metabolic Panel 05/30/24 [facility] Evaluation + Plan note Future Appointments Appointment Date:04/25/2025 11:30:00 AM Scheduled Provider:MARCIO SELF MD Location:[facility] Appointment Type:PC OV Pre Op Appointment Date:05/29/2025 10:15:00 AM Scheduled Provider:ANISA OSULLIVAN DO Location:[facility] Appointment Type:[facility] OV Post Op Appointment Date:06/28/2025 10:00:00 AM Scheduled Provider:MARCIO SELF MD Location:[facility] Appointment Type:PC OV Appointment Date:10/03/2025 02:00:00 PM Scheduled Provider:MARCIO SELF MD Location:[facility] Appointment Type: Wellness Medicare Future Scheduled Tests Laboratory* Ferritin 09/06/24 * Ferritin 05/30/24 * Urinalysis w/ C&S if Indicated 03/14/25 * Thyroid Stimulating Hormone 09/06/24 * Thyroid Stimulating Hormone 05/30/24 * Free T4 09/06/24 * Vitamin B12 Level 09/06/24 * Complete Blood Count 09/06/24 * Complete Blood Count 05/30/24 * Free T3 09/06/24 * Free T3 05/30/24 * Lipid Profile 09/06/24 * Lipid Profile 05/30/24 * Vitamin D Level 09/06/24 * Bacterial Vaginosis PCR Screen 03/14/25 * Candi/Trichomonas Vaginitis PCR Screen 03/14/25 * Complete Metabolic Panel 09/06/24 * Complete Metabolic Panel 05/30/24 [facility] Evaluation + Plan note Future Appointments Appointment Date:05/29/2025 10:15:00 AM Scheduled Provider:ANISA OSULLIVAN DO Location:[facility] Appointment Type:[facility] OV Post Op Appointment Date:06/28/2025 10:00:00 AM Scheduled Provider:MARCIO SELF MD Location:[facility] Appointment Type:PC OV Appointment Date:10/03/2025 02:00:00 PM Scheduled Provider:MARCIO SELF MD Location:[facility] Appointment Type:PC Wellness Medicare Future Scheduled Tests Laboratory* Ferritin 09/06/24 * Ferritin 05/30/24 * Urinalysis w/ C&S if Indicated 03/14/25 * Thyroid Stimulating Hormone 09/06/24 * Thyroid Stimulating Hormone 05/30/24 * Free T4 09/06/24 * Vitamin B12 Level 09/06/24 * Complete Blood Count 09/06/24 * Complete Blood Count 05/30/24 * Free T3 09/06/24 * Free T3 05/30/24 * Lipid Profile 09/06/24 * Lipid Profile 05/30/24 * Vitamin D Level 09/06/24 * Bacterial Vaginosis PCR Screen 03/14/25 * Candi/Trichomonas Vaginitis PCR Screen 03/14/25 * Complete Metabolic Panel 09/06/24 * Complete Metabolic Panel 05/30/24 [facility] Evaluation + Plan note Future Appointments Appointment Date:09/11/2025 02:00:00 PM Scheduled Provider:MARCIO SELF MD Location:[facility] Appointment Type:PC OV Follow Up Appointment Date:10/02/2025 08:45:00 AM Scheduled Provider:ANISA OSULLIVAN DO Location:[facility] Appointment Type:OS[facility] OV Follow Up Appointment Date:10/03/2025 02:00:00 PM Scheduled Provider:MARCIO SELF MD Location:[facility] Appointment Type:PC Wellness Medicare Future Scheduled Tests Laboratory* Ferritin 09/06/24 * Urinalysis w/ C&S if Indicated 03/14/25 * Thyroid Stimulating Hormone 09/06/24 * Free T4 09/06/24 * Vitamin B12 Level 09/06/24 * Complete Blood Count 09/06/24 * Free T3 09/06/24 * Lipid Profile 09/06/24 * Vitamin D Level 09/06/24 * Bacterial Vaginosis PCR Screen 03/14/25 * Candi/Trichomonas Vaginitis PCR Screen 03/14/25 * Complete Metabolic Panel 09/06/24 [facility] Evaluation note* Diagnosis Onset Date Resolution Status DJD of right shoulder acute Internal impingement of both shoulders acute Thoracic kyphosis acute Contusion of knee, right acu te Internal impingement of both shoulders acute Status post right knee replacement acute [facility] Work Phone: Evaluation note* Diagnosis Onset Date Resolution Status Contusion of knee, right acu te Internal impingement of both shoulders acute Status post right knee replacement acute Falls acute Numbness of tongue acute Right facial numbness acute [facility] Work Phone: Evaluation note* Diagnosis Onset Date Resolution Status Contusion of knee, right acu te Internal impingement of both shoulders acute Status post right knee replacement acute Numbness of tongue acute Right facial numbness acute [facility] Work Phone: Evaluation note* Diagnosis Onset Date Resolution Status DJD of right shoulder acute Internal impingement of both shoulders acute DJD of right shoulder acute Internal impingement of both shoulders acute Internal impingement of both shoulders acute Left rotator cuff tear acute Left rotator cuff tear acute Primary osteoarthritis, left shoulder acute [facility] Work Phone: Evaluation note* Diagnosis Onset Date Resolution Status DJD of right shoulder acute Internal impingement of both shoulders acute DJD of right shoulder acute Internal impingement of both shoulders acute Internal impingement of both shoulders acute Left rotator cuff tear acute Left rotator cuff tear acute Primary osteoarthritis, left shoulder acute GERD (gastroesophageal reflux disease) acute Irritable bowel acute [facility] Work Phone: Evaluation note* Diagnosis Chorea- Primary Other choreas Tardive dyskinesia Subacute dyskinesia due to drugs 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 Migraine with aura and without status migrainosus, not intractable [facility] Diagnosis Tardive dyskinesia- Primary Subacute dyskinesia due to drugs Chorea Other choreas [facility]* Diagnosis Migraine with aura and without status migrainosus, not intractable documented [facility]* Diagnosis Migraine with aura and without status migrainosus, not intractable- Primary documented [facility] this [facility]* Diagnosis Migraine with aura and without status migrainosus, not intractable- Primary documented in this encounter [facility]* Diagnosis Chorea Other choreas Tardive dyskinesia Subacute dyskinesia due to drugs documented in this encounter [facility]* Diagnosis Syncope and collapse- Primary documented in this encounter [facility]* Diagnosis Syncope and collapse- Primary documented in this encounter [facility]* Diagnosis Syncope and collapse documented in this encounter [facility]* Diagnosis Blepharospasm of both eyes- Primary Tardive dyskinesia Subacute dyskinesia due to drugs Chorea Other choreas Gait disturbance Abnormality of gait Migraine without aura and without status migrainosus, not intractable documented in this encounter [facility]* Diagnosis Tardive dyskinesia Subacute dyskinesia due to drugs Chorea Other choreas documented in this encounter [facility]* Diagnosis Tardive dyskinesia- Primary Subacute dyskinesia due to drugs documented in this encounter [facility]* Diagnosis Tardive dyskinesia- Primary Subacute dyskinesia due to drugs documented in this encounter [facility]* Diagnosis Tardive dyskinesia Subacute dyskinesia due to drugs documented in this encounter [facility]* Diagnosis Tardive dyskinesia Subacute dyskinesia due to drugs documented in this encounter [facility]* Diagnosis Tardive dyskinesia Subacute dyskinesia due to drugs documented in this encounter [facility]* Diagnosis Migraine without aura and without status migrainosus, not intractable- Primary [facility] Ble[facility]asm of both eyes [facility] Diagnosis Blepharospasm of both eyes- Primary Tardive dyskinesia Subacute dyskinesia due to drugs Gait disturbance Abnormality of gait Migraine without aura and without status migrainosus, not intractable Obstructive sleep apnea Obstructive sleep apnea (adult) (pediatric) documented in this encounter [facility]* Diagnosis Tardive dyskinesia- Primary Subacute dyskinesia due to drugs documented in this encounter [facility]* Diagnosis Tardive dyskinesia- Primary Subacute dyskinesia due to drugs documented in this encounter [facility]* Diagnosis Tardive dyskinesia- Primary Subacute dyskinesia due to drugs [facility] Diagnosis Tardive dyskinesia- Primary Subacute dyskinesia due to drugs [facility] Diagnosis Tardive dyskinesia Subacute dyskinesia due to drugs [facility] Diagnosis Tardive dyskinesia- Primary Subacute dyskinesia due to drugs Migraine without aura and without status migrainosus, not intractable [facility] Narrative No data available for this section [facility] Discharge instructions No data available for this section [facility] Discharge instructionsAmbulatory Orders* PT Referral Location: [facility] Work Phone: Progress note No data available for this section [facility] (narrative)* Medications - Pending Review Specialty Diagnoses / Procedures Referred By Adalid t Referred To Contact Robby Napier MD [address] [place] [address] Phone: tel: fax: Referral ID Status Reason Start Date Expiration Date V isits Requested Visits Authorized [id number] Pending Review 1 1 [facility] for referral (narrative)* Medications - Pending Review Specialty Diagnoses / Procedures Referred By Adalid t Referred To Contact Robby Napier MD [address] [place] [address] Phone: tel: fax: Referral ID Status Reason Start Date Expiration Date V isits Requested Visits Authorized [id number] Pending Review 1 1 [facility] note* ARTURO Hill: PERFORM Event Display: Patient Summary Documents Authored Date: [id number] [facility] Summary Purpose Family History No Family History Records Found Relationship Condition Age at Onset Recorded Date/T oleksandr sister Cerebrovascular accident (CVA) Unknown Atrial fibrillation Unknown Heart disease Unknown Disorder of liver Unknown brother Malignant neoplasm of colon Unknown father Pulmonary emphysema Unknown Unknown Family Member Name Dates Details : Mother, Father Comments:MOTHER- MUDEREDFATH ER- COPD; Status:Active Denies Family history of mal ignant neoplasm of colon: Other(V16.0, Z80.0) Status: Unknown Family Member Name Dates Details : Mother, Father Comments:MOTHER- MUDEREDFATH ER- COPD; Status:Active Denies Family history of mal ignant neoplasm of colon: Other(V16.0, Z80.0) Status: Advance Directives No Advanced Directives Records FoundDocuments on File Type Date Recorded 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 ACP-Advance Directive ACP-Power of Graphics Software Engineer Documents on File Type Date Recorded 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 Advance Directives and Living Will Power of Graphics Software Engineer Advance Directive Response Recorded Date/ Time Living Will Yes November 11 10:49am Power of Graphics Software Engineer Yes November 11, 2021 10:49am Advance Directive Response Recorded Date/ Time Name of Medical Power of Graphics Software Engineer elgin agueromari November 11, 2021 10:49am Living Will No February 15, 2022 3:22pm Power of Graphics Software Engineer No February 15 3:22pm Advance Directive Response Recorded Date/ Time Name of Medical Power of Graphics Software Engineer carl ayers tter April 16, 2022 1:27pm Living Will Yes April 16, 2022 1:27pm Power of Graphics Software Engineer Yes April 16 1:27pm Advance Directive Response Recorded Date/ Time Name of Medical Power of Graphics Software Engineer carl ayers tter April 16, 2022 1:27pm Name of Medical Power of Graphics Software Engineer Carl Ayers tler April 16, 2022 10:56pm Living Will Yes April 16, 2022 10:56pm Power of Graphics Software Engineer Yes April 16 10:56pm Advance Directive Response Recorded Date/ Time Living Will Yes April 16, 2022 10:56pm Power of Graphics Software Engineer Yes April 16 10:56pm Documents on File Type Date Recorded 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 Advance Directives and Livin g Will 03/22/2025 9:40 AM 03/2025 Power of Graphics Software Engineer 03/22/2025 9:39 AM Documents on File Type Date Recorded 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 Advance Directives and Livin g Will 03/22/2025 9:40 AM 03/2025 Power of Graphics Software Engineer 03/22/2025 9:39 AM Assessments Diagnosis Dizziness and giddiness Chief Complaint and Reason for Visit Chief Complaint bilat shoulders xray fall PAIN IN SPINE BL shoulders xray USP BLOOD WORK COMPRESSION FRACTURE T10 Reason for Visit DJD of right shoulde r Internal impingement of both shoulders Thoracic kyphosis Contusion of knee, right Internal impingement of both shoulders Status post right knee replacement Chief Complaint fall PAIN IN SPINE BL shoulders xray USP BLOOD WORK COMPRESSION FRACTURE T10 R SIDED TONGUE NUMBNESS/DYSARTHRIA R SIDED TONGUE NUMBNESS/DYSARTHRIA R SIDED TONGUE NUMBNESS/DYSARTHRIA Reason for Visit Contusion of knee, r ight Internal impingement of both shoulders Status post right knee replacement Falls Numbness of tongue Right facial numbness Chief Complaint fall PAIN IN SPINE BL shoulders xray USP BLOOD WORK COMPRESSION FRACTURE T10 R SIDED TONGUE NUMBNESS/DYSARTHRIA R SIDED TONGUE NUMBNESS/DYSARTHRIA R SIDED TONGUE NUMBNESS/DYSARTHRIA Reason for Visit Contusion of knee, r ight Internal impingement of both shoulders Status post right knee replacement Numbness of tongue Right facial numbness Chief Complaint PAIN IN SPINE BL shoulders xray USP BLOOD WORK COMPRESSION FRACTURE T10 R SIDED TONGUE NUMBNESS/DYSARTHRIA R SIDED TONGUE NUMBNESS/DYSARTHRIA R SIDED TONGUE NUMBNESS/DYSARTHRIA weakness Reason for Visit Contusion of knee, r ight Internal impingement of both shoulders Status post right knee replacement Numbness of tongue Right facial numbness Chief Complaint PAIN IN SPINE BL shoulders xray USP BLOOD WORK COMPRESSION FRACTURE T10 R SIDED TONGUE NUMBNESS/DYSARTHRIA R SIDED TONGUE NUMBNESS/DYSARTHRIA R SIDED TONGUE NUMBNESS/DYSARTHRIA weakness off balance, nausea/vomitting Reason for Visit Contusion of knee, r ight Internal impingement of both shoulders Status post right knee replacement Numbness of tongue Right facial numbness Chief Complaint BL shoulders xray USP BLOOD WORK COMPRESSION FRACTURE T10 R SIDED TONGUE NUMBNESS/DYSARTHRIA R SIDED TONGUE NUMBNESS/DYSARTHRIA R SIDED TONGUE NUMBNESS/DYSARTHRIA LAB WORK weakness off balance, nausea/vomitting Reason for Visit Contusion of knee, r ight Internal impingement of both shoulders Status post right knee replacement Numbness of tongue Right facial numbness Chief Complaint LAB WORK weakness off balance, nausea/vomitting Bilat shoulders BILAT SHOULDERS Bilat shoulder pain xray LEFT SHOULDER LEFT SHOULDER Reason for Visit DJD of right shoulde r Internal impingement of both shoulders DJD of right shoulder 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 Left rotator cuff tear Left rotator cuff tear Primary osteoarthritis, left shoulder Chief Complaint Bilat shoulders BILAT SHOULDERS Bilat shoulder pain xray LEFT SHOULDER LEFT SHOULDER USP LAB WORK Consult Reason for Visit DJD of right shoulde r Internal impingement of both shoulders DJD of right shoulder 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 Left rotator cuff tear Left rotator cuff tear Primary osteoarthritis, left shoulder GERD (gastroesophageal reflux disease) Irritable bowel Chief Complaint NPV for TIANPV for TIA Reason for Referral Specialty Diagnoses / Procedures Referred By Minaac t Referred To Contact Neurology Diagnoses Syncope and collapse Procedures EEG extended more than 1 hour Robby Napier MD [address] [facility] [address] [place] [address] Referral ID Status Reason Start Date Expiration Date V isits Requested Visits Authorized [id number] Pending Review 08/01/2024 07/27/2025 1 1 Specialty Diagnoses / Procedures Referred By Contac t Referred To Contact Radiology Diagnoses Chorea Tardive dyskinesia Procedures MR brain w and wo contrast Robby Napier MD [address] [facility] [address] [place] [address] Referral ID Status Reason Start Date Expiration Date V isits Requested Visits Authorized [id number] Pending Review 06/29/2024 06/29/2025 1 1 Additional Source Comments INFORMATION SOURCE (unrecogn ized section and content) DATE CREATED AUTHOR 08/10/2019 [facility] DATE CREATED AUTHOR AUTHOR'S ORGANIZ ATION 10/07/2022 [employer] DATE CREATED AUTHOR AUTHOR'S ORGANIZ ATION 10/09/2022 [facility] DATE CREATED AUTHOR AUTHOR'S ORGANIZ ATION 07/09/[address] [facility] DATE CREATED AUTHOR AUTHOR'S ORGANIZ ATION 05/03/2024 [facility] ([place]) DATE CREATED AUTHOR AUTHOR'S ORGANIZ ATION 05/22/2025 [facility] DATE CREATED AUTHOR AUTHOR'S ORGANIZ ATION 06/28/2025 [facility] DATE CREATED AUTHOR AUTHOR'S ORGANIZ ATION 08/09/2025 [facility] DATE CREATED AUTHOR AUTHOR'S ORGANIZ ATION 09/05/2025 [facility] DATE CREATED AUTHOR AUTHOR'S ORGANIZ ATION 09/08/2025 [facility] Goals (unrecognized section and content) Goals may be documented in a n alternate section Care Team (unrecognized sect ion and content) Pipe And Boiler Covers Supervisor Relationship Specialty Start Date End Date Marcio Self [address] [place] [address] PCP - General Family Medicine 06/29/24 Pipe And Boiler Covers Supervisor Relationship Specialty Start Date End Date Marcio Self [address] [place] [address] PCP - General Family Medicine 06/29/24 Pipe And Boiler Covers Supervisor Relationship Specialty Start Date End Date Marcio Self [address] [place] [address] PCP - General Family Medicine 06/29/24 Pipe And Boiler Covers Supervisor Relationship Specialty Start Date End Date Marcio Self [address] [place] [address] PCP - General Family Medicine 06/29/24 Pipe And Boiler Covers Supervisor Relationship Specialty Start Date End Date Marcio Self [address] [place] [address] PCP - General Family Medicine 06/29/24 Pipe And Boiler Covers Supervisor Relationship Specialty Start Date End Date Marcio Self [address] [place] [address] PCP - General Family Medicine 06/29/24 Pipe And Boiler Covers Supervisor Relationship Specialty Start Date End Date Marcio Self [address] [place] [address] PCP - General Family Medicine 06/29/24 Pipe And Boiler Covers Supervisor Relationship Specialty Start Date End Date Marcio Self [address] [place] [address] PCP - General Family Medicine 06/29/24 Pipe And Boiler Covers Supervisor Relationship Specialty Start Date End Date Marcio Self [address] [place] [address] PCP - General Family Medicine 06/29/24 Pipe And Boiler Covers Supervisor Relationship Specialty Start Date End Date Marcio Self [address] [place] [address] PCP - General Family Medicine 06/29/24 Pipe And Boiler Covers Supervisor Relationship Specialty Start Date End Date Marcio Self [address] [place] [address] PCP - General Family Medicine 06/29/24 Pipe And Boiler Covers Supervisor Relationship Specialty Start Date End Date Marcio Self [address] [place] [address] PCP - General Family Medicine 06/29/24 Pipe And Boiler Covers Supervisor Relationship Specialty Start Date End Date Marcio Self [address] [place] [address] PCP - General Family Medicine 06/29/24 Pipe And Boiler Covers Supervisor Relationship Specialty Start Date End Date Marcio Self [address] [place] [address] PCP - General Family Medicine 06/29/24 Pipe And Boiler Covers Supervisor Relationship Specialty Start Date End Date Marcio Self [address] [place] [address] PCP - General Family Medicine 06/29/24 Pipe And Boiler Covers Supervisor Relationship Specialty Start Date End Date Marcio Self [address] [place] [address] PCP - General Family Medicine 06/29/24 Pipe And Boiler Covers Supervisor Relationship Specialty Start Date End Date Marcio Self [address] [place] [address] PCP - General Family Medicine 06/29/24 Pipe And Boiler Covers Supervisor Relationship Specialty Start Date End Date Marcio Self [address] [place] [address] PCP - General Family Medicine 06/29/24 Pipe And Boiler Covers Supervisor Relationship Specialty Start Date End Date Marcio Self [address] [place] [address] PCP - General Family Medicine 06/29/24 Pipe And Boiler Covers Supervisor Relationship Specialty Start Date End Date Marcio Self [address] [place] [address] PCP - General Family Medicine 06/29/24 Pipe And Boiler Covers Supervisor Relationship Specialty Start Date End Date Marcio Self [address] [place] [address] PCP - General Family Medicine 06/29/24 Pipe And Boiler Covers Supervisor Relationship Specialty Start Date End Date Marcio Self [address] [place] [address] PCP - General Family Medicine 06/29/24 Pipe And Boiler Covers Supervisor Relationship Specialty Start Date End Date Marcio Self [address] [place] [address] PCP - General Family Medicine 06/29/24 Pipe And Boiler Covers Supervisor Relationship Specialty Start Date End Date Marcio Self [address] [place] [address] PCP - General Family Medicine 06/29/24 Pipe And Boiler Covers Supervisor Relationship Specialty Start Date End Date Marcio Self [address] [place] [address] PCP - General Family Medicine 06/29/24 Care Team (unrecognized sect ion and content) Care Team Personnel Name: Harshil Miller PT Position: P3 Scheduling - Digital Asset Coordinator Advanced Member Role: Other Name: MARCIO SELF MD Position: P4 Physician - Primary Care Med Service: Active Provider Member Role: Primary Care Physician Address: Address: [facility] [place] [address]- [place] Care Team Related Persons Name: ELGIN ROE Name: ADONAY VU Care Team Personnel Name: Angela, Sharemilker Roselia PT Position: P3 Scheduling - Digital Asset Coordinator Advanced Member Role: Other Name: MARCIO SELF MD Position: P4 Physician - Primary Care Med Service: Active Provider Member Role: Primary Care Physician Address: Address: [address] [place] [address] Care Team Related Persons Name: ELGNI ROE Name: ADONAY VU Care Team Personnel Name: Angela, Sharemilker Roselia PT Position: P3 Scheduling - Digital Asset Coordinator Advanced Member Role: Other Name: MARCIO SELF MD Position: P4 Physician - Primary Care Member Role: Primary Care Physician Address: Address: [address] [place] [address] Care Team Related Persons Name: ELGIN ROE Name: ADONAY VU Care Team Personnel Name: Angela, Sharemilker Roselia PT Position: P3 Scheduling - Digital Asset Coordinator Advanced Member Role: Other Name: MARCIO SELF MD Position: P4 Physician - Primary Care Member Role: Primary Care Physician Address: Address: [address] [place] [address] Care Team Related Persons Name: ELGIN ROE Name: ADONAY VU Reason for Visit (unrecogniz ed section and content) Reason Onset Date Comments Appointment Confirmation 06/22/2024 Reason Comments New Patient Tremors Difficulty Walking Extremity Weakness Reason Onset Date Comments Advice Only 06/29/2024 Reason Onset Date Comments Med Refill 07/07/2024 Reason Onset Date Comments Other 07/10/2024 Prior authorizat ion Reason Onset Date Comments Med Refill 07/11/2024 Reason Onset Date Comments Medication Problem 07/17/2024 Qulipta Specialty Diagnoses / Procedures Referred By Adalid t Referred To Contact Radiology Diagnoses Chorea Tardive dyskinesia Procedures MR brain w and wo contrast Robby Napier MD [address] [facility] [address] [place] [address] Referral ID Status Reason Start Date Expiration Date Visits Re quested Visits Authorized [id number] Closed 06/29/2024 06/29/2025 1 1 Reason Onset Date Comments Other 08/01/2024 update Reason Onset Date Comments Other 08/01/2024 update Release of Information 08/01/2024 Specialty Diagnoses / Procedures Referred By Adalid t Referred To Contact Neurology Diagnoses Syncope and collapse Procedures EEG extended more than 1 hour Robby Napier MD [address] [facility] [address] [place] [address] Referral ID Status Reason Start Date Expiration Date Visits Re quested Visits Authorized [id number] Closed 08/01/2024 07/27/2025 1 1 Reason Comments Follow-up Abnl Movement Reason Onset Date Comments Medication Problem 09/04/2024 Ingrezza new dose Reason Onset Date Comments Error (VOID this visit) 09/11/2024 Reason Onset Date Comments Depression 09/11/2024 Reason Onset Date Comments Med Management 09/12/2024 Ingrezza 60 Reason Onset Date Comments Medication Question 09/12/2024 Reason Onset Date Comments Medication Problem 10/09/2024 Reason Onset Date Comments Orders 10/11/2024 Reason Comments New Patient Bilateral blepharosp asm Specialty Diagnoses / Procedures Referred By Adalid bangura Referred To Contact Neurology Diagnoses Blepharospasm of both eyes Procedures MO OFFICE/OUTPATIENT NEW HIGH MDM 60 MINUTES Robby Napier MD [address] [address] Phone: tel: fax: Emilia Bergeron MD [address] [place] [address] [place] [address] Phone: tel: fax: Referral ID Status Reason Start Date Expiration Date V isits Requested Visits Authorized [id number] Closed Specialty Services Required 09/01/2024 09/01/2025 1 1 Reason Comments Follow-up Headache Reason Onset Date Comments Medication Problem 03/27/2025 Austedo Reason Onset Date Comments Other 03/22/2025 Requesting stop order Reason Onset Date Comments Medication Problem 04/17/2025 deutetrabenaz ine (Austedo) Reason Onset Date Comments Medication Problem 04/17/2025 deutetrabenaz ine (Austedo) Reason Comments Follow-up Abnl Movement FOR RECORDS PERTAINING TO PATIENTS WHO ARE OR HAVE BEEN ENROLLED IN A CHEMICAL DEPENDENCY/SUBSTANCEABUSE PROGRAM, SOME INFORMATION MAY BE OMITTED. This clinical summary was aggregated from multiple sources. Caution should be exercised in using it in the provision of clinical care. This summary normalizes information from multiple sources, and as a consequence, information in this document may materially change the coding, format and clinical context of patient data. In addition, data may be omitted in some cases. CLINICAL DECISIONS SHOULD BE BASED ON THE PRIMARY CLINICAL RECORDS. [facility] provides no warranty or guarantee of the accuracy or completeness of information in this document.
[2025-09-13 09:06] LABS: Hematocrit 38.1 % (37-47); Hemoglobin 12.9 g/dL (12.0-15.0); Mean Corp Hgb Conc 33.9 g/dL (32-36); Mean Corpuscular Volume 92.7 fL (81-99); Mean Platelet Vol. 9.5 fl (6.2-12.0); Platelet Count 211 K/mm3 (150-450); RBC Distribution Width CV 11.8 % (11.6-14.6); RBC Distribution Width SD 40.7 fl (35.1-43.9); Red Blood Count 4.11 M/mm3 (4.2-5.4); White Blood Count 4.1 K/mm3 (4.4-11.0)
[2025-09-13 09:31] LABS: AST(SGOT) 20 U/L (<=31); Alanine Aminotransfer ALT/SGPT 11 U/L (<=34); Albumin, Serum 4.2 g/dL (3.4-4.8); Alkaline Phosphatase 110 U/L (35-104); Anion Gap 10 (5-15); BUN 12 mg/dL (4-19); BUN/Creat Ratio 13.3 RATIO (10-20); Calcium,Total 10.1 mg/dL (7.6-11.0); Carbon Dioxide 26.6 mmol/L (21.0-32.0); Chloride 105 mmol/L (98-108); Cholesterol 186 mg/dL (<=200); Ferritin 103 ng/mL (22-378); Globulin 2.6 g/dL (2.2-4.2); Glucose 95 mg/dL (70-99); Low Density Lipoprotein Calc. 99 mg/dL; Potassium 4.2 mmol/L (3.3-5.1); Triglycerides 82 mg/dL; Very Low Density Lipoprotein 16 mg/dL (5-40); Vitamin B12 771 pg/mL (180-914); cholesterol:hdl ratio screen 2.58
== END ==
LOC: OLS.SWAL 04:00
PROVIDERS: PCP Family Medicine; Referring Provider Family Medicine; Visit Provider Family Medicine
DX: I10 Essential (primary) hypertension (principal); E78.5 Hyperlipidemia, unspecified; D51.9 Vitamin B12 deficiency anemia, unspecified
CPT/HCPCS: 36415; 80053; 80061; 82607; 82728; 84439; 84443; 85027

== ENCOUNTER → 2025-09-20 | Outpatient (CLI) | payer MEDICARE, MEDICAID, SELFPAY | END | disposition home or self-care (01) | LOC: SL 11:20 | PROVIDERS: PCP Family Medicine; Referring Provider Nurse Practitioner Family; Visit Provider Nurse Practitioner Family | DX: Z00.00 Encounter for general adult medical examination without abnormal findings (principal) ==